=== PATIENT | male | born 1965 | race Caucasian/White ===

== ENCOUNTER 2017-07-07 15:44 | Inpatient (IN) | payer OTHER ==
[2017-07-07] VITALS (15 sets, daily range): BP systolic 100–143; BP diastolic 60–98; PULSE 68–142; RESP 16–22; TEMP 98; O2SAT 95–97
[~2017-07-07] VITALS: Ht 167.6 cm; Wt 107.2 kg
[~2017-07-07 15:44] MED LIST: PERC5TAB12 PO
[2017-07-07 17:11] LABS: AUTOMATED NEUTROPHIL # 4.9 TH/MM3 (1.8-7.7); BASOPHIL # 0.1 TH/MM3 (0-0.2); BASOPHIL % 0.9 % (0.0-2.0); EOSINOPHIL # 0.1 TH/MM3 (0-0.4); EOSINOPHIL % 1.7 % (0.0-4.0); HEMOGLOBIN 13.8 GM/DL (13.0-17.0); LYMPH % 14.8 % (9.0-44.0); MEAN CELL VOLUME 87.3 FL (80.0-100.0); MEAN CORPUSCULAR HEMOGLOBIN 30.2 PG (27.0-34.0); MEAN CORPUSCULAR HGB CONC 34.6 % (32.0-36.0); MEAN PLATELET VOLUME 7.7 FL (7.0-11.0); MONO % 7.9 % (0.0-8.0); MONOCYTE # 0.5 TH/MM3 (0-0.9); NEUT % 74.7 % (16.0-70.0); PLATELET COUNT 133 TH/MM3 (150-450); RED BLOOD COUNT 4.58 MIL/MM3 (4.50-5.90); RED CELL DISTRIBUTION WIDTH 15.3 % (11.6-17.2); WHITE BLOOD COUNT 6.5 TH/MM3 (4.0-11.0)
[2017-07-07 17:20] LABS: INTERNATIONAL NORMALIZED RATIO 1.1 RATIO; PROTHROMBIN TIME - PATIENT 11.4 SEC (9.8-11.6)
[2017-07-07 17:32] LABS: BICARBONATE 25.2 MEQ/L (21.0-32.0); BLOOD UREA NITROGEN 13 MG/DL (7-18); CALCIUM 9.4 MG/DL (8.5-10.1); CHLORIDE 103 MEQ/L (98-107); CREATININE 0.89 MG/DL (0.60-1.30); GLOMERULAR FILTRATION RATE 89 ML/MIN (>89); GLUCOSE,RANDOM 97 MG/DL (74-106); SODIUM (NA) 137 MEQ/L (136-145)
[2017-07-07 17:37] LABS: TROPONIN I LESS THAN 0.02 NG/ML (0.02-0.05)
[2017-07-07] MEDS ORDERED: SODIUM CHLORID 0.9% 500 ML INJ 500 ML IV ONE (19:45)
[2017-07-07] MEDS ORDERED: SODIUM CHLORIDE 0.9% FLUSH 10 ML FLUSH IVF PRN (19:45)
[2017-07-07] MEDS ORDERED: DILTIAZEM HCL 25 MG/5 ML VIAL IV PUSH ONE ×2 (19:45→20:30)
--- NOTE | 2017-07-07 20:25 | RADRPT ---
EXAM DATE/TIME: 07/07/2017 19:53 [facility] COMPARISON: No previous studies available for comparison. INDICATIONS : Short of breath. MEDICAL HISTORY : None. SURGICAL HISTORY : None. ENCOUNTER: Initial ACUITY: 1 day PAIN SCORE: 7/10 LOCATION: Bilateral chest FINDINGS: A single view of the chest demonstrates the lungs to be symmetrically aerated without evidence of mas s, infiltrate or effusion. The cardiomediastinal contours are unremarkable. Osseous structures are intact. CONCLUSION: No evidence of acute cardiopulmonary disease. Oscar Burris MD on July 07, 2017 at 20:22 Board Certified Radiologist. This report was verified electronically.
[2017-07-07] MEDS ORDERED: DILTIAZEM INJ 125 MG in SODIUM CHLORIDE 0.9% INJ 100 ML IV PRN (20:30)
[2017-07-07] MEDS ORDERED: IOHEXOL 350 MG/ML 10 ML VIAL (for RAD DIAG) IVCONTRAST ONE (20:35)
--- NOTE | 2017-07-07 20:51 | RADRPT ---
EXAM DATE/TIME: 07/07/2017 20:31 [facility] COMPARISON: No previous studies available for comparison. INDICATIONS : Patient complains of short of breath. IV CONTRAST: 75 cc Omnipaque 350 (iohexol) IV RADIATION DOSE: 23.45 CTDIvol (mGy) MEDICAL HISTORY : Carcinoma, bladder. SURGICAL HISTORY : bladder tumor removed ENCOUNTER: Initial ACUITY: 1 day PAIN SCALE: 2/10 LOCATION: chest TECHNIQUE: Volumetric scanning of the chest was performed using a pulmonary embolism protocol MIP images were re constructed. Using automated exposure control and adjustment of the mA and/or kV according to patien t size, radiation dose was kept as low as reasonably achievable to obtain optimal diagnostic quality images. DICOM format image data is available electronically for review and comparison. Follow-up recommendations for detected pulmonary nodules are based at a minimum on nodule size and pa tient risk factors according to Fleischner Society Guidelines. FINDINGS: PULMONARY ARTERIES: No filling defects are seen in the pulmonary arteries through the segmental level. LUNGS: There is no consolidation or pneumothorax . No concerning pulmonary nodule is visualized. Mild emphy sema noted. PLEURAE: There is no pleural thickening or pleural effusion. MEDIASTINUM: There is good visualization of the great vessels of the middle mediastinum. No evidence of mediastin al or hilar adenopathy/mass. Right and left side coronary artery calcification noted. MUSCULOSKELETAL: Within normal limits for patient age. MISCELLANEOUS: The visualized upper abdominal organs demonstrate no acute abnormality. 3.7 cm cyst of the upper pole of the right kidney and 2.4 cm cyst of the upper pole of the left kidney noted and there is a 12 mm benign myelolipoma of the lateral limb of the left adrenal gland. CONCLUSION: 1. No pulmonary embolus or other acute cardiopulmonary disease demonstrated. 2. Mild emphysema. 3. Coronary artery calcification. 4. Benign appearing cysts of the upper pole of each kidney. 5. 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 Oscar Burris MD on July 07, 2017 at 20:46 Board Certified Radiologist. This report was verified electronically.
[2017-07-07] MEDS ORDERED: DILTIAZEM HCL 50 MG/10 ML VIAL ONE (20:52)
--- NOTE | 2017-07-07 22:36 | PD ---
HPI Chief Complaint: Cardiac Complaint Time Seen by Provider: 19:33 Travel History International Travel<30 days: No Contact w/Intl Traveler<30days: No Traveled to known affect area: No History of Present Illness HPI Patient is a 51 year old male who comes in due to tachycardia. He says that he has been having congestion for about a month. He says he thinks the heart issue is related to his congestion. He went to the [place] today and was told to come here due to his heart rate and to make sure he did not have a blood clot. He denies any chest pain. He does report come shortness of breath. He denies nausea or vomiting. He denies leg swelling or pain. He has never had this before. Severity is mild to moderate. PFSH Past Medical History Cancer: Yes Chemotherapy: Yes (after malignant bladder tumor was removed (11/06/2015)) Diminished Hearing: No Immunizations Current: Yes Radiation Therapy: Yes (after malignant bladder tumor was removed (11/06/2015)) Influenza Vaccination: Yes Past Surgical History Genitourinary Surgery: Yes (malignant bladder tumor removed 11/06/2015) Tonsillectomy: Yes (50+ years ago (as child)) Social History Alcohol Use: No (quit drinking 2007) Tobacco Use: Yes (quit in 2016 but had a 30 year pack hx) Substance Use: No (denies) Allergies-Medications (Allergen,Severity, Reaction): Coded Allergies: No Known Allergies (Verified Allergy, Unknown, 07/08/17) Reported Meds & Prescriptions Reported Meds & Active Scripts Active Review of Systems Except as stated in HPI: all other systems reviewed are Neg General / Constitutional: No: Fever, Chills HENT: Positive: Congestion, No: Headaches Cardiovascular: Positive: Palpitations, No: Chest Pain or Discomfort Respiratory: Positive: Cough, Shortness of Breath Gastrointestinal: No: Nausea, Vomiting, Abdominal Pain Musculoskeletal: No: Myalgias, Edema Skin: No Rash, No Change in Pigmentation Neurologic: No: Weakness, Dizziness Physical Exam Narrative GENERAL: Awake and alert, in no acute distress. SKIN: Focused skin assessment warm/dry. HEAD: Atraumatic. Normocephalic. EYES: Pupils equal and round. No scleral icterus. EOMI. ENT: Mucous membranes pink and moist. NECK: Trachea midline. No JVD. CARDIOVASCULAR: tachycardia. No murmur appreciated. RESPIRATORY: No accessory muscle use. Clear to auscultation. Breath sounds equal bilaterally. GASTROINTESTINAL: Abdomen soft, non-tender, nondistended. MUSCULOSKELETAL: No obvious deformities. No clubbing. No cyanosis. No edema. NEUROLOGICAL: Awake and alert. No obvious cranial nerve deficits. Motor grossly within normal limits. Normal speech. PSYCHIATRIC: Appropriate mood and affect; insight and judgment normal. Data Data Last Documented VS Vital Signs Date Time Temp Pulse Resp B/P (MAP) Pulse Ox O2 Delivery O2 Flow Rate FiO2 07/07/17 22:30 72 20 135/67 (89) 96 Room Air 07/07/17 16:17 98.0 Orders Orders Electrocardiogram (07/07/17 16:17) Complete Blood Count With Diff (07/07/17 16:17) Basic Metabolic Panel (Bmp) (07/07/17 16:17) Ckmb (Isoenzyme) Profile (07/07/17 16:17) Troponin I (07/07/17 16:17) Coag Profile (07/07/17 16:19) CKMB (07/07/17 17:00) CKMB% (07/07/17 17:00) B-Type Natriuretic Peptide (07/07/17 19:33) Iv Access Insert/Monitor (07/07/17 19:33) Ecg Monitoring (07/07/17 19:33) Oximetry (07/07/17 19:33) Oxygen Administration (07/07/17 19:33) Chest, Single Ap (07/07/17 19:33) Ct Pulmonary Angiogram (07/07/17 19:33) Sodium Chloride 0.9% Flush (Ns Flush) (07/07/17 19:45) Diltiazem Inj (Cardizem Inj) (07/07/17 19:45) Sodium Chlorid 0.9% 500 Ml Inj (Ns 500 M (07/07/17 19:45) Diltiazem Inj (Cardizem Inj) (07/07/17 20:30) Vital Signs (Adult) Q15MX4,Q4H (07/07/17 20:23) Charrer / Telemetry SHAMIR.Q8H (07/07/17 20:23) Cardiac Rhythm SHAMIR.Q8H (07/07/17 20:23) Notify Dr: Other (07/07/17 20:23) Diltiazem Inj (Cardizem Inj) (07/07/17 20:30) Iohexol 350 Inj (Omnipaque 350 Inj) (07/07/17 20:35) Diltiazem Inj (Cardizem Inj) (07/07/17 20:52) Admit Order (Ed Use Only) (07/07/17 ) Labs Laboratory Tests Test 07/07/17 17:00 07/07/17 19:48 White Blood Count 6.5 TH/MM3 Red Blood Count 4.58 MIL/MM3 Hemoglobin 13.8 GM/DL Hematocrit 40.0 % Mean Corpuscular Volume 87.3 FL Mean Corpuscular Hemoglobin 30.2 PG Mean Corpuscular Hemoglobin Concent 34.6 % Red Cell Distribution Width 15.3 % Platelet Count 133 TH/MM3 Mean Platelet Volume 7.7 FL Neutrophils (%) (Auto) 74.7 % Lymphocytes (%) (Auto) 14.8 % Monocytes (%) (Auto) 7.9 % Eosinophils (%) (Auto) 1.7 % Basophils (%) (Auto) 0.9 % Neutrophils # (Auto) 4.9 TH/MM3 Lymphocytes # (Auto) 1.0 TH/MM3 Monocytes # (Auto) 0.5 TH/MM3 Eosinophils # (Auto) 0.1 TH/MM3 Basophils # (Auto) 0.1 TH/MM3 CBC Comment DIFF FINAL Differential Comment Prothrombin Time 11.4 SEC Prothromb Time International Ratio 1.1 RATIO Activated Partial Thromboplast Time 26.4 SEC Blood Urea Nitrogen 13 MG/DL Creatinine 0.89 MG/DL Random Glucose 97 MG/DL Calcium Level 9.4 MG/DL Sodium Level 137 MEQ/L Potassium Level 4.1 MEQ/L Chloride Level 103 MEQ/L Carbon Dioxide Level 25.2 MEQ/L Anion Gap 9 MEQ/L Estimat Glomerular Filtration Rate 89 ML/MIN Total Creatine Kinase 134 U/L Creatine Kinase MB 2.1 NG/ML Troponin I LESS THAN 0.02 NG/ML B-Type Natriuretic Peptide 228 PG/ML MDM Medical Decision Making Medical Screen Exam Complete: Yes Emergency Medical Condition: Yes Medical Record Reviewed: Yes Interpretation(s) ECG shows aflutter at a rate of 117 Differential Diagnosis new onset aflutter vs electrolyte abnormalities vs ACS vs PE Narrative Course Patient is a 51 year old male who comes in complaining of tachycardia. Exam shows tachycardia, aflutter. IV established, labs sent. Patient connected to the cardiac monitor technician. Pulse as high as 140. Given Cardizem, 2 boluses and started on a drip. CTA shows no acute abnormalities. Labs show no acute abnormalities. Patient will be admitted for further management. Diagnosis Primary Impression: Atrial flutter with rapid ventricular response Admitting Information Admitting Physician Requests: Admit Heaven Xiong MD Jul 07, 2017 22:36
[2017-07-07] MEDS ORDERED: ONDANSETRON HCL 4 MG/2 ML VIAL IVP PRN (23:15)
[2017-07-07] MEDS ORDERED: ENOXAPARIN SODIUM 100 MG/ML SYRINGE SQ SCH (23:15)
[2017-07-07] MEDS ORDERED: ACETAMINOPHEN 325 MG TAB PO PRN (23:15)
[2017-07-07] MEDS ORDERED: NALOXONE HCL 0.4 MG/ML AMP IV PUSH PRN (23:15)
[2017-07-08] VITALS (32 sets, daily range): BP systolic 98–156; BP diastolic 61–96; PULSE 46–138; RESP 16–22; TEMP 98–98.9; O2SAT 91–98
[2017-07-08] MEDS: ENOXAPARIN SODIUM 40 MG/0.4 ML SYRINGE SQ SCH ×2 (00:04→23:26)
[2017-07-08] MEDS ORDERED: SIMV40TA PO (00:23)
--- NOTE | 2017-07-08 01:40 | HHI.HP ---
HPI [facility] Primary Care Physician [facility] Admission Diagnosis aflutter with RVR, new onset Diagnoses: Travel History International Travel<30 Days: No Contact w/Intl Traveler <30 Da: No Traveled to Known Affected Are: No History of Present Illness 51-year-old male with a past medical history significant for hyperlipidemia presents to the emergency department for evaluation of atrial fibrillation. The patient has had chest congestion for the past month and was seen by the [facility] earlier yesterday. He complains of shortness of breath with a productive cough. His shortness of breath is worse with exertion. He endorses palpitations. Denies any chest pain. No lower extremity edema. No fever/ chills. No nausea/vomiting/diarrhea. No lateralizing signs/symptoms. Review of Systems Except as stated in HPI: all other systems reviewed are Neg Past Family Social History Past Medical History Hyperlipidemia Past Surgical History Bladder tumor removal Tonsillectomy Reported Medications Reported Meds & Active Scripts Active Reported Simvastatin 40 Mg Tab 20 Mg PO HS Allergies: Coded Allergies: No Known Allergies (Verified Allergy, Unknown, 07/08/17) Family History Father at age 59 due to complications from alcohol abuse. Social History Negative for alcohol, tobacco and illicit drugs. Physical Exam Vital Signs Vital Signs Date Time Temp Pulse Resp B/P (MAP) Pulse Ox O2 Delivery O2 Flow Rate FiO2 07/08/17 00:10 78 20 Automatic Cuff 96 Room Air 07/08/17 00:05 91 18 108/71 (83) 97 Room Air 07/07/17 23:30 70 20 100/62 (75) 97 Room Air 07/07/17 23:00 68 19 100/65 (77) 97 Room Air 07/07/17 22:30 72 20 135/67 (89) 96 Room Air 07/07/17 22:15 68 20 139/71 (93) 96 Room Air 07/07/17 22:00 68 20 143/72 (95) 96 Room Air 07/07/17 21:47 70 140/65 07/07/17 21:45 70 20 140/65 (90) 97 Room Air 07/07/17 21:03 92 16 143/72 (95) 95 Room Air 07/07/17 20:25 92 20 143/73 (96) 96 Room Air 07/07/17 20:20 98 20 135/68 (90) 96 Room Air 07/07/17 20:15 98 18 132/71 (91) 96 Room Air 07/07/17 20:10 124 21 132/60 (84) 96 Room Air 07/07/17 20:10 124 22 132/60 (84) 97 Room Air 07/07/17 20:09 97 Room Air 07/07/17 20:09 92 18 99 Room Air 07/07/17 20:05 138 22 135/98 (110) 97 Room Air 07/07/17 20:00 140 22 132/86 (101) 95 Room Air 07/07/17 19:55 142 22 128/79 (95) 95 Room Air 07/07/17 16:17 98.0 90 18 116/72 (87) 95 Physical Exam GENERAL: male lying in bed SKIN: No rashes, ecchymoses or lesions. Cool and dry. HEAD: Atraumatic. Normocephalic. No temporal or scalp tenderness. EYES: Pupils equal round and reactive. Extraocular motions intact. No scleral icterus. No injection or drainage. ENT: Nose without bleeding, purulent drainage or septal hematoma. Throat without erythema, tonsillar hypertrophy or exudate. Uvula midline. Airway patent. NECK: Trachea midline. No JVD or lymphadenopathy. Supple, nontender, no meningeal signs. CARDIOVASCULAR: Regular rate. Irregularly irregular rhythm without murmurs/rubs /gallops. RESPIRATORY: Clear to auscultation. Breath sounds equal bilaterally. No wheezes , rales, or rhonchi. GASTROINTESTINAL: Abdomen soft, non-tender, nondistended. No hepato-splenomegaly , or palpable masses. No guarding. MUSCULOSKELETAL: Extremities without clubbing, cyanosis, or edema. No joint tenderness, effusion, or edema noted. No calf tenderness. NEUROLOGICAL: Awake and alert. Cranial nerves II through XII intact. Motor and sensory grossly within normal limits. Normal speech. Laboratory Laboratory Tests Test 07/07/17 17:00 07/07/17 19:48 White Blood Count 6.5 Red Blood Count 4.58 Hemoglobin 13.8 Hematocrit 40.0 Mean Corpuscular Volume 87.3 Mean Corpuscular Hemoglobin 30.2 Mean Corpuscular Hemoglobin Concent 34.6 Red Cell Distribution Width 15.3 Platelet Count 133 Mean Platelet Volume 7.7 Neutrophils (%) (Auto) 74.7 Lymphocytes (%) (Auto) 14.8 Monocytes (%) (Auto) 7.9 Eosinophils (%) (Auto) 1.7 Basophils (%) (Auto) 0.9 Neutrophils # (Auto) 4.9 Lymphocytes # (Auto) 1.0 Monocytes # (Auto) 0.5 Eosinophils # (Auto) 0.1 Basophils # (Auto) 0.1 CBC Comment DIFF FINAL Differential Comment Prothrombin Time 11.4 Prothromb Time International Ratio 1.1 Activated Partial Thromboplast Time 26.4 Blood Urea Nitrogen 13 Creatinine 0.89 Random Glucose 97 Calcium Level 9.4 Sodium Level 137 Potassium Level 4.1 Chloride Level 103 Carbon Dioxide Level 25.2 Anion Gap 9 Estimat Glomerular Filtration Rate 89 Total Creatine Kinase 134 Creatine Kinase MB 2.1 Troponin I LESS THAN 0.02 B-Type Natriuretic Peptide 228 Result Diagram: 07/07/17 1700 07/07/17 1700 Caprini VTE Risk Assessment Caprini VTE Risk Assessment: No/Low Risk (score <= 1) Caprini Risk Assessment Model Point Value = 1 Point Value = 2 Point Value = 3 Point Value = 5 Age 41-60 Minor surgery BMI > 25 kg/m2 Swollen legs Varicose veins or History of unexplained or recurrent spontaneous Oral contraceptives or hormone replacement Sepsis (< 1 month) Serious lung disease, including pneumonia (< 1 month) Abnormal pulmonary function Acute myocardial infarction Congestive heart failure (< 1 month) History of inflammatory bowel disease Medical patient at bed rest Age 61-74 Arthroscopic surgery Major open surgery (> 45 min) Laparoscopic surgery (> 45 min) Malignancy Confined to bed (> 72 hours) Immobilizing plaster cast Central venous access Age >= 75 History of VTE Family history of VTE Factor V Leiden Prothrombin [id number] Lupus anticoagulant Anticardiolipin antibodies Elevated serum homocysteine Heparin-induced thrombocytopenia Other congenital or acquired thrombophilia Stroke (< 1 month) Elective arthroplasty Hip, pelvis, or leg fracture Acute spinal cord injury (< 1 month) Prophylaxis Regimen Total Risk Factor Score Risk Level Prophylaxis Regimen 0-1 Low Early ambulation 2 Moderate Order ONE of the following: *Sequential Compression Device (SCD) *Heparin 5000 units SQ BID 3-4 Higher Order ONE of the following medications: *Heparin 5000 units SQ TID *Enoxaparin/Lovenox 40 mg SQ daily (WT < 150 kg, CrCl > 30 mL/min) *Enoxaparin/Lovenox 30 mg SQ daily (WT < 150 kg, CrCl > 10-29 mL/min) *Enoxaparin/Lovenox 30 mg SQ BID (WT < 150 kg, CrCl > 30 mL/min) AND/OR *Sequential Compression Device (SCD) 5 or more Highest Order ONE of the following medications: *Heparin 5000 units SQ TID (Preferred with Epidurals) *Enoxaparin/Lovenox 40 mg SQ daily (WT < 150 kg, CrCl > 30 mL/min) *Enoxaparin/Lovenox 30 mg SQ daily (WT < 150 kg, CrCl > 10-29 mL/min) *Enoxaparin/Lovenox 30 mg SQ BID (WT < 150 kg, CrCl > 30 mL/min) AND *Sequential Compression Device (SCD) Assessment and Plan Assessment and Plan Assessment/plan: 1. Atrial flutter with rapid ventricular response EKG significant for a flutter with RVR and incomplete RBBB, personally reviewed. No ST segment elevation/depression Patient without history of atrial flutter or fibrillation CHADS-VASc - 0 Diltiazem drip Cardiology consulted, appreciate recommendations 2. Hyperlipidemia Continue home statin FEN Heart healthy diet Electrolytes: Replete when necessary Lovenox Physician Certification 2 Midnight Certification Type: Admission for Inpatient Services Order for Inpatient Services The services are ordered in accordance with Medicare regulations or non- Medicare payer requirements, as applicable. In the case of services not specified as inpatient-only, they are appropriately provided as inpatient services in accordance with the 2-midnight benchmark. Estimated LOS (days): 2 2 days is the estimated time the patient will need to remain in the hospital, assuming treatment plan goals are met and no additional complications. Post-Hospital Plan: Not yet determined Ann Kaufman MD Jul 08, 2017 01:40
[2017-07-08 10:47] LABS: AUTOMATED NEUTROPHIL # 4.7 TH/MM3 (1.8-7.7); BASOPHIL % 0.6 % (0.0-2.0); EOSINOPHIL # 0.1 TH/MM3 (0-0.4); EOSINOPHIL % 2.2 % (0.0-4.0); HEMATOCRIT 39.1 % (39.0-51.0); HEMOGLOBIN 13.3 GM/DL (13.0-17.0); LYMPHOCYTE # 0.6 TH/MM3 (1.0-4.8); MEAN CELL VOLUME 88.5 FL (80.0-100.0); MEAN CORPUSCULAR HGB CONC 33.9 % (32.0-36.0); MEAN PLATELET VOLUME 8.7 FL (7.0-11.0); MONO % 4.6 % (0.0-8.0); MONOCYTE # 0.3 TH/MM3 (0-0.9); NEUT % 81.6 % (16.0-70.0); PLATELET COUNT 128 TH/MM3 (150-450); RED BLOOD COUNT 4.42 MIL/MM3 (4.50-5.90); RED CELL DISTRIBUTION WIDTH 15.1 % (11.6-17.2); WHITE BLOOD COUNT 5.7 TH/MM3 (4.0-11.0)
[2017-07-08 11:22] LABS: CALCIUM 8.6 MG/DL (8.5-10.1); CREATININE 0.9 MG/DL (0.60-1.30)
--- NOTE | 2017-07-08 16:54 | HHI.PR ---
Subjective Remarks Follow-up atrial fibrillation. Patient seen and examined today laying in bed. He states that he is doing well. However complaint of shortness of breath, dyspnea on exertion especially when he gets out of bed going to the bathroom. Patient states that he is so winded. But states his oxygen remains in the 94-96 %. States he has some congestion and that all of this might be just from the congestion that is why he is not breathing better. Denies pain and discomfort. Denies chest pain, palpitations, headaches, dizziness. Denies fevers, chills, n/v/d. Denies hematuria, dysuria. Objective Vitals Vital Signs Date Time Temp Pulse Resp B/P (MAP) Pulse Ox O2 Delivery O2 Flow Rate FiO2 07/08/17 16:00 92 07/08/17 15:21 98.1 74 18 98/76 (83) 94 07/08/17 15:00 70 07/08/17 14:00 76 07/08/17 13:00 92 07/08/17 12:18 98.0 138 18 118/64 (82) 95 07/08/17 12:00 130 07/08/17 11:22 87 18 95 07/08/17 11:00 112 07/08/17 09:52 99 20 125/96 (106) 93 Room Air 07/08/17 09:30 134 07/08/17 08:00 76 22 118/63 (81) 93 Room Air 07/08/17 07:00 80 20 114/69 (84) 93 Room Air 07/08/17 06:00 68 16 118/71 (87) 91 Room Air 07/08/17 05:00 84 16 106/69 (81) 91 Room Air 07/08/17 04:00 68 16 109/61 (77) 92 Room Air 07/08/17 03:00 72 16 119/74 (89) 94 Room Air 07/08/17 03:00 74 119/74 07/08/17 02:09 78 106/78 07/08/17 02:04 98 07/08/17 02:04 78 16 106/79 (88) 98 Room Air 07/08/17 01:45 68 18 107/63 (78) 96 07/08/17 01:00 68 20 110/71 (84) 96 Room Air 07/08/17 00:45 84 20 97 Room Air 07/08/17 00:30 136 22 156/88 (110) 96 Room Air 07/08/17 00:10 78 20 Automatic Cuff 96 Room Air 07/08/17 00:05 91 18 108/71 (83) 97 Room Air 07/07/17 23:30 70 20 100/62 (75) 97 Room Air 07/07/17 23:00 68 19 100/65 (77) 97 Room Air 07/07/17 22:30 72 20 135/67 (89) 96 Room Air 07/07/17 22:15 68 20 139/71 (93) 96 Room Air 07/07/17 22:00 68 20 143/72 (95) 96 Room Air 07/07/17 21:47 70 140/65 07/07/17 21:45 70 20 140/65 (90) 97 Room Air 07/07/17 21:03 92 16 143/72 (95) 95 Room Air 07/07/17 20:25 92 20 143/73 (96) 96 Room Air 07/07/17 20:20 98 20 135/68 (90) 96 Room Air 07/07/17 20:15 98 18 132/71 (91) 96 Room Air 07/07/17 20:10 124 21 132/60 (84) 96 Room Air 07/07/17 20:10 124 22 132/60 (84) 97 Room Air 07/07/17 20:09 97 Room Air 07/07/17 20:09 92 18 99 Room Air 07/07/17 20:05 138 22 135/98 (110) 97 Room Air 07/07/17 20:00 140 22 132/86 (101) 95 Room Air 07/07/17 19:55 142 22 128/79 (95) 95 Room Air I/O 07/07/17 07/07/17 07/07/17 07/08/17 07/08/17 07/08/17 07:00 15:00 23:00 07:00 15:00 23:00 Intake Total 500 ml Balance 500 ml Intake IV Total 500 ml Result Diagram: 07/08/17 1013 07/08/17 1013 Imaging Last Impressions Chest X-Ray 07/07/17 193 Signed Impressions: Service Date/Time: Friday, July 07, 2017 19:53 - CONCLUSION: No evidence of acute cardiopulmonary disease. Oscar Burris MD CT Angiography 07/07/17 193 Signed Impressions: Service Date/Time: Friday, July 07, 2017 20:31 - CONCLUSION: 1. No pulmonary embolus or other acute cardiopulmonary disease demonstrated. 2. Mild emphysema. 3. Coronary artery calcification. 4. Benign appearing cysts of the upper pole of each kidney. 5. 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 Oscar Burris MD Objective Remarks GENERAL: This is an obese, well-developed patient, in no apparent distress. SKIN: Warm and dry. HEENT: Normocephalic. Pupils equal round and reactive. Nose without bleeding. Airway patent. NECK: Trachea midline. CARDIOVASCULAR:Irregular rate without murmurs, gallops, or rubs. RESPIRATORY: Diminished Bases. No wheezes, rales, or rhonchi. GASTROINTESTINAL: Abdomen soft, non-tender, nondistended. Bowel Sounds normoactive x4. MUSCULOSKELETAL: Extremities without clubbing, cyanosis, or edema. NEUROLOGICAL: Awake and alert. Oriented to time, place, person. No focal neuro deficit. Moves all extremities. Normal speech. A/P Problem List: (1) Atrial flutter with rapid ventricular response ICD Code: I48.92 - Unspecified atrial flutter Status: Acute (2) HLD (hyperlipidemia) ICD Code: E78.5 - Hyperlipidemia, unspecified Status: Chronic Assessment and Plan Patient is 51-year-old male with a past medical history significant for hyperlipidemia presents to the emergency department for evaluation of atrial fibrillation Atrial flutter with rapid ventricular response EKG significant for a flutter with RVR and incomplete RBBB, personally reviewed. No ST segment elevation/depression Patient without history of atrial flutter or fibrillation CHADS-VASc - 0 Diltiazem drip for now, titrate to HR <100. May possibly switch to PO Cardizem once evaluated by Cardiology Cardiology consulted, appreciate recommendations ECHO pending PT eval and treat Hyperlipidemia Continue home statin, simvastatin Check Lipid Profile Congestion -Reports congestion, previously when he was seen at the [place]. -We will do guaifenesin as needed DVT prop Lovenox Discharge Planning Plan to [place] home when cleared by cardiology. Angie Cosby Jul 08, 2017 16:54
--- NOTE | 2017-07-08 16:56 | EKG ---
Date Performed: 07/07/2017 Time Performed: 16:52:04 PTAGE: 51 years EKG: ATRIAL FLUTTER WITH RAPID VENTRICULAR RESPONSE RIGHT VENTRICULAR CONDUCTION DISTURBANCE DIF FUSE NONSPECIFIC ST-T WAVE CHANGE ABNORMAL ECG NO PREVIOUS TRACING DOCTOR: Dmitry Hawkins Interpretating Date/Time 07/08/2017 16:55:09
--- NOTE | 2017-07-08 16:58 | EKG ---
Date Performed: 07/07/2017 Time Performed: 23:17:12 PTAGE: 51 years EKG: ATRIAL FLUTTER WITH CONTROLLED VENTRICULAR RESPONSE RIGHT VENTRICULAR CONDUCTION DISTURBANC E INDETERMINATE AXIS NONSPECIFIC T-WAVE CHANGE Compared to previous tracing, ventricular response to the atrial flutter is slower, otherwise no significant change. ABNORMAL ECG PREVIOUS TRACING : 07/07/2017 23.17.12 DOCTOR: Dmitry Hawkins Interpretating Date/Time 07/08/2017 16:57:48
[2017-07-08 17:57] LABS: ALBUMIN 3.4 GM/DL (3.4-5.0)
[2017-07-08 18:01] LABS: CHOLESTEROL/ HDL RATIO 3.78 RATIO; DIRECT BILIRUBIN ADULT 0.2 MG/DL (0.0-0.2); HDL CHOLESTEROL 30.9 MG/DL (40.0-60.0); INDIRECT BILIRUBIN 0.9 MG/DL (0.0-0.8); TOTAL BILIRUBIN ADULT 1.1 MG/DL (0.2-1.0); TOTAL PROTEIN 6.9 GM/DL (6.4-8.2)
[2017-07-08] MEDS: DILTIAZEM HCL 30 MG TAB PO SCH ×2 (18:11→20:15)
[2017-07-08] MEDS: ASPIRIN EC 81 MG TABEC PO SCH (18:11)
--- NOTE | 2017-07-08 18:41 | MB ---
cc: Matt Stubbs MD DATE OF CONSULT: 07/08/2017 REASON FOR CONSULTATION: Atrial flutter. HISTORY OF PRESENT ILLNESS: The patient is a 51-year-old white male with a history of benign prostatic hypertrophy, bladder cancer, status post chemotherapy and radiation therapy, who presented to the hospital with a 1-month history of persistent upper airway congestion and shortness of breath. The patient states he is barely able to walk about 50-75 yards without a fair amount of dyspnea. He finally came to the emergency room where he was found to be in atrial flutter. He denies chest pain, dizziness, syncope, or near syncope. Rarely, he experiences fleeting fluttering palpitations. He also denies pedal edema, paroxysmal nocturnal dyspnea or orthopnea. He has not had any fevers, chills, or weight loss. PAST MEDICAL HISTORY: 1. Benign prostatic hypertrophy. 2. Bladder cancer, status post tumor resection 10/27/2015, as well as chemotherapy and radiation therapy. 3. Hyperlipidemia. PAST SURGICAL HISTORY: 1. Bladder cancer tumor removal 10/27/2015. 2. Tonsillectomy. CARDIAC MEDICATIONS AT HOME: 1. Simvastatin 20 mg at bedtime. ALLERGIES: NO KNOWN DRUG ALLERGIES. FAMILY HISTORY: There is no significant family history of early myocardial infarction. SOCIAL HISTORY: The patient quit smoking many years ago. He denies alcohol abuse. REVIEW OF SYSTEMS: As in history of present illness, otherwise negative or noncontributory. He also denies headache, visual changes, unilateral weakness or numbness, abdominal pain, melena, dyspepsia, and bright red blood per rectum. PHYSICAL EXAMINATION: VITAL SIGNS: Blood pressure 98/76 with a pulse of 80, respirations 18. GENERAL: He is a well-developed, well-nourished white male, in no acute distress. NECK: Jugular venous pressure is normal. Carotid pulses are 2+ bilaterally and without bruits. CHEST: Reveals clear lungs craven. CARDIAC: He has an irregularly irregular rhythm without S3 or murmur. ABDOMEN: He has a soft, obese, nontender abdomen. Bowel sounds are present. There is no definite hepatosplenomegaly. EXTREMITIES: Reveals no clubbing, cyanosis, or edema. DIAGNOSTIC DATA: EKG shows atrial flutter, poor R-wave progression, nonspecific ST and T-wave abnormalities. LABORATORY DATA: Includes normal basic metabolic profile, except for glucose 157. Normal CBC. IMAGING STUDIES: Chest x-ray shows no acute disease. IMPRESSION: Paroxysmal atrial flutter in this 51-year-old white male with a history of hyperlipidemia, bladder cancer, benign prostatic hypertrophy. At this time, he remains in atrial flutter with controlled heart rates, on intravenous Cardizem. Echocardiogram is pending. Providing his left ventricular function is normal, his thromboembolic risk is low. There is no evidence for acute coronary syndrome. There is no evidence for congestive heart failure. The nature of atrial flutter, potential treatment options in the future, thromboembolic risks have been outlined with the patient. RECOMMENDATIONS: 1. Change intravenous Cardizem to oral administration. 2. Daily aspirin. 3. Await his 2D echo. 4. Consider discharge tomorrow. MD NARINDER Dangelo/ZARA , 05:52 PM , 06:39 PM [email or web address]
[2017-07-08] MEDS: PRAVASTATIN SOD 40 MG TAB PO SCH (20:15)
[2017-07-08] MEDS: guaiFENesin SOLUTION 200 MG/10 ML CUP PO PRN (23:26)
[2017-07-09] VITALS (26 sets, daily range): BP systolic 113–121; BP diastolic 65–94; PULSE 48–130; RESP 18; TEMP 98.3–98.7; O2SAT 92–100
[2017-07-09] MEDS: ASPIRIN EC 81 MG TABEC PO SCH (08:47)
[2017-07-09] MEDS: DILTIAZEM HCL 30 MG TAB PO SCH (08:47)
[2017-07-09 09:43] LABS: HEMOGLOBIN A1C 5.9 % (4.3-6.0)
--- NOTE | 2017-07-09 09:48 | PD.CARD.PN ---
Subjective Subjective Remarks No dyspnea, CP, palpitations, dizziness. Still somewhat "congested." Objective Medications Item Value Date Time Pravastatin Sodium 40 mg 07/08/17 2100 (Pravachol) HS/PO 07/08/172014 Diltiazem HCl 30 mg 07/08/17 1800 (Cardizem) QID/PO 07/09/17 0847 Aspirin 81 mg 07/08/17 1800 (Ecotrin Ec) DAILY/PO 07/09/17 0847 Enoxaparin Sodium 40 mg 07/07/17 2315 (Lovenox Inj) Q24H/SQ 07/08/17 2326 Current Medications Medications (Trade) Dose Ordered Sig/Marlen Route Start Time Stop Time Status Last Admin (NS Flush) 2 ml UNSCH PRN IVF 07/07/17 19:45 07/07/17 21:47 (Tylenol) 650 mg Q4H PRN PO 07/07/17 23:15 (Zofran Inj) 4 mg Q6H PRN IVP 07/07/17 23:15 (Narcan Inj) 0.4 mg UNSCH PRN IV PUSH 07/07/17 23:15 (Lovenox Inj) 40 mg Q24H SQ 07/07/17 23:15 07/08/17 23:26 (Pravachol) 40 mg HS PO 07/08/17 21:00 07/08/17 20:15 (Robitussin Liq) 200 mg Q4H PRN PO 07/08/17 17:00 07/08/17 23:26 (Cardizem) 30 mg QID PO 07/08/17 18:00 07/09/17 08:47 (Ecotrin Ec) 81 mg DAILY PO 07/08/17 18:00 07/09/17 08:47 Vital Signs / I&O Vital Signs Date Time Temp Pulse Resp B/P (MAP) Pulse Ox O2 Delivery O2 Flow Rate FiO2 07/09/17 07:12 98.5 130 18 113/94 (100) 98 07/09/17 06:15 98 07/09/17 05:03 67 07/09/17 04:29 83 07/09/17 03:47 83 07/09/17 03:43 98.5 48 121/74 (90) 92 07/09/17 02:01 72 07/09/17 01:00 67 07/09/17 00:00 82 07/08/17 23:39 91 07/08/17 23:35 98.8 46 111/66 (81) 93 07/08/17 22:00 76 07/08/17 21:00 98 07/08/17 20:00 82 07/08/17 20:00 98.9 65 101/76 (84) 93 07/08/17 19:00 92 07/08/17 18:00 94 07/08/17 17:00 80 07/08/17 16:00 92 07/08/17 15:21 98.1 74 18 98/76 (83) 94 07/08/17 15:00 70 07/08/17 14:00 76 07/08/17 13:00 92 07/08/17 12:18 98.0 138 18 118/64 (82) 95 07/08/17 12:00 130 07/08/17 11:22 87 18 95 07/08/17 11:00 112 07/08/17 09:52 99 20 125/96 (106) 93 Room Air I/O 07/08/17 07/08/17 07/08/17 07/09/17 07/09/17 07/09/17 07:00 15:00 23:00 07:00 15:00 23:00 Intake Total 840 ml 240 ml Output Total 750 ml 400 ml Balance 90 ml -160 ml Intake Oral 840 ml 240 ml Output Urine Total 750 ml 400 ml Physical Exam GENERAL: Well developed, well nourished. No acute distress. HEENT: Jugular venous pressure is normal. CHEST: Lungs clear to auscultation bilaterally. Unlabored respiratory effort. CARDIAC: Irregular rate and rhythm without S3, S4, or murmur. ABDOMEN: Soft, nontender, no hepatosplenomegaly. Bowel sounds present. EXTREMITIES: No clubbing, cyanosis, or edema. Laboratory Laboratory Tests Test 07/08/17 10:13 White Blood Count 5.7 TH/MM3 Red Blood Count 4.42 MIL/MM3 Hemoglobin 13.3 GM/DL Hematocrit 39.1 % Mean Corpuscular Volume 88.5 FL Mean Corpuscular Hemoglobin 30.0 PG Mean Corpuscular Hemoglobin Concent 33.9 % Red Cell Distribution Width 15.1 % Platelet Count 128 TH/MM3 Mean Platelet Volume 8.7 FL Neutrophils (%) (Auto) 81.6 % Lymphocytes (%) (Auto) 11.0 % Monocytes (%) (Auto) 4.6 % Eosinophils (%) (Auto) 2.2 % Basophils (%) (Auto) 0.6 % Neutrophils # (Auto) 4.7 TH/MM3 Lymphocytes # (Auto) 0.6 TH/MM3 Monocytes # (Auto) 0.3 TH/MM3 Eosinophils # (Auto) 0.1 TH/MM3 Basophils # (Auto) 0.0 TH/MM3 CBC Comment DIFF FINAL Differential Comment Blood Urea Nitrogen 10 MG/DL Creatinine 0.90 MG/DL Random Glucose 157 MG/DL Calcium Level 8.6 MG/DL Sodium Level 138 MEQ/L Potassium Level 4.3 MEQ/L Chloride Level 104 MEQ/L Carbon Dioxide Level 25.0 MEQ/L Anion Gap 9 MEQ/L Estimat Glomerular Filtration Rate 88 ML/MIN Total Bilirubin 1.1 MG/DL Direct Bilirubin 0.2 MG/DL Indirect Bilirubin 0.9 MG/DL Aspartate Amino Transf (AST/SGOT) 35 U/L Alanine Aminotransferase (ALT/SGPT) 28 U/L Alkaline Phosphatase 72 U/L Total Protein 6.9 GM/DL Albumin 3.4 GM/DL Triglycerides Level 97 MG/DL Cholesterol Level 117 MG/DL LDL Cholesterol 67 MG/DL HDL Cholesterol 30.9 MG/DL Cholesterol/HDL Ratio 3.78 RATIO Assessment and Plan Problem List: (1) Paroxysmal atrial flutter ICD Codes: I48.92 - Unspecified atrial flutter Status: Acute Plan: Overall stable. HR's elevated with mild exertion, normal at rest. Providing his left ventricular function is normal, his thromboembolic risk is low. There is no evidence for acute coronary syndrome. There is no evidence for congestive heart failure. REC change diltiazem to Cardizem CD 240 mg qd continue daily aspirin will consider referral for EP study in the future for ablation OK to discharge later today from my standpoint (2) Hyperlipidemia ICD Codes: E78.5 - Hyperlipidemia, unspecified Status: Chronic Plan: Continue statin therapy. [facility] Rec primary prevention goals. Code Status full code Discussed Condition With patient Problem Qualifiers (1) Hyperlipidemia: Qualified Codes: E78.5 - Hyperlipidemia, unspecified Matt Stubbs MD Jul 09, 2017 09:48
[2017-07-09] MEDS ORDERED: DILTIAZEM-CD 240 MG CAP ER PO SCH (10:00)
--- NOTE | 2017-07-09 11:18 | HHI.PR ---
Subjective Remarks Follow-up atrial fibrillation with RVR 07/09/17-patient seen and examined, denies any chest pain however complain of congestions. Objective Vitals Vital Signs Date Time Temp Pulse Resp B/P (MAP) Pulse Ox O2 Delivery O2 Flow Rate FiO2 07/09/17 07:12 98.5 130 18 113/94 (100) 98 07/09/17 06:15 98 07/09/17 05:03 67 07/09/17 04:29 83 07/09/17 03:47 83 07/09/17 03:43 98.5 48 121/74 (90) 92 07/09/17 02:01 72 07/09/17 01:00 67 07/09/17 00:00 82 07/08/17 23:39 91 07/08/17 23:35 98.8 46 111/66 (81) 93 07/08/17 22:00 76 07/08/17 21:00 98 07/08/17 20:00 82 07/08/17 20:00 98.9 65 101/76 (84) 93 07/08/17 19:00 92 07/08/17 18:00 94 07/08/17 17:00 80 07/08/17 16:00 92 07/08/17 15:21 98.1 74 18 98/76 (83) 94 07/08/17 15:00 70 07/08/17 14:00 76 07/08/17 13:00 92 07/08/17 12:18 98.0 138 18 118/64 (82) 95 07/08/17 12:00 130 07/08/17 11:22 87 18 95 I/O 07/08/17 07/08/17 07/08/17 07/09/17 07/09/17 07/09/17 07:00 15:00 23:00 07:00 15:00 23:00 Intake Total 840 ml 240 ml Output Total 750 ml 400 ml Balance 90 ml -160 ml Intake Oral 840 ml 240 ml Output Urine Total 750 ml 400 ml Result Diagram: 07/08/17 1013 07/08/17 1013 Imaging Last Impressions Chest X-Ray 07/07/17 193 Signed Impressions: Service Date/Time: Friday, July 07, 2017 19:53 - CONCLUSION: No evidence of acute cardiopulmonary disease. Oscar Burris MD CT Angiography 07/07/17 193 Signed Impressions: Service Date/Time: Friday, July 07, 2017 20:31 - CONCLUSION: 1. No pulmonary embolus or other acute cardiopulmonary disease demonstrated. 2. Mild emphysema. 3. Coronary artery calcification. 4. Benign appearing cysts of the upper pole of each kidney. 5. 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 Oscar Burris MD Objective Remarks GENERAL: NAD SKIN: Warm and dry. HEAD: Normocephalic. EYES: No scleral icterus. No injection or drainage. NECK: Supple, trachea midline. No JVD or lymphadenopathy. CARDIOVASCULAR: Regular rate and rhythm without murmurs, gallops, or rubs. RESPIRATORY: Breath sounds equal bilaterally. No accessory muscle use. GASTROINTESTINAL: Abdomen soft, non-tender, nondistended. MUSCULOSKELETAL: No cyanosis, or edema. BACK: Nontender without obvious deformity. No CVA tenderness. Procedures None A/P Problem List: (1) Paroxysmal atrial flutter ICD Code: I48.92 - Unspecified atrial flutter Status: Acute (2) HLD (hyperlipidemia) ICD Code: E78.5 - Hyperlipidemia, unspecified Status: Chronic Assessment and Plan 51-year-old man with Atrial fibrillation with RVR Change to Cardizem CD 240 mg daily Continue with aspirin pending 2-D echo Appreciate input from cardiology Hyperlipidemia Continue home statin, simvastatin Congestion -Reports congestion, [facility]. -Continue guaifenesin as needed DVT prop Moose Mckinnon MD Jul 09, 2017 11:18
--- NOTE | 2017-07-09 16:40 | ECHRPT ---
Indication: A FIB FLUTTER CONCLUSIONS Mildly dilated left ventricle. Wall thickness is measured at the upper limits of normal. The left ventricular systolic function is severely reduced with an estimated ejection fraction of 25 %. The right ventricular systolic function is decreased. BP: / HR: Rhythm: MEASUREMENTS (Male / Female) Normal Values Technical Quality: 2D ECHO LV Diastolic Diameter PLAX 5.5 cm 4.2 - 5.9 / 3.9 - 5.3 cm LV Systolic Diameter PLAX 4.9 cm IVS Diastolic Thickness 1.4 cm 0.6 - 1.0 / 0.6 - 0.9 cm LVPW Diastolic Thickness 1.0 cm 0.6 - 1.0 / 0.6 - 0.9 cm LV Relative Wall Thickness 0.4 LA Systolic Diameter LX 3.8 cm 3.0 - 4.0 / 2.7 - 3.8 cm M-MODE Aortic Root Diameter MM 3.3 cm AV Cusp Separation MM 2.3 cm DOPPLER Mitral E Point Velocity 117.0 cm/s TR Peak Velocity 266.0 cm/s TR Peak Gradient 28.3 mmHg Right Atrial Pressure 5.0 mmHg Pulmonary Artery Systolic Pressu 33.3 mmHg Right Ventricular Systolic Press 33.3 mmHg FINDINGS LEFT VENTRICLE Mildly dilated left ventricle. Wall thickness is measured at the upper limits of normal. The left ventricular systolic function is severely reduced with an estimated ejection fraction of 25 %. RIGHT VENTRICLE The right ventricular systoilc function is decreased. LEFT ATRIUM The left atrial size is normal. RIGHT ATRIUM The right atrial size is normal. ATRIAL SEPTUM Normal atrial septal thickness without atrial level shunting by limited color doppler interrogation. AORTA The aortic root and proximal ascending aorta are normal in size on limited imaging. MITRAL VALVE Structurally normal mitral valve. No mitral valve stenosis or regurgitation. AORTIC VALVE Trileaflet aortic valve. No aortic valve stenosis or regurgitation. TRICUSPID VALVE Structurally normal tricuspid valve. No tricuspid valve stenosis or regurgitation. PULMONARY VALVE No pulmonary valve regurgitation or stenosis. VESSELS The inferior vena cava is normal in size. PERICARDIUM No pericardial effusion. Mima See MD, FACC (Electronically Signed) Final Date:09 July 2017 16:39
[2017-07-09] MEDS: PRAVASTATIN SOD 40 MG TAB PO SCH (20:18)
[2017-07-09] MEDS: guaiFENesin SOLUTION 200 MG/10 ML CUP PO PRN (23:24)
[2017-07-09] MEDS: ENOXAPARIN SODIUM 40 MG/0.4 ML SYRINGE SQ SCH (23:24)
[2017-07-10] VITALS (28 sets, daily range): BP systolic 101–119; BP diastolic 65–79; PULSE 55–136; RESP 18; TEMP 97.7–98.7; O2SAT 92–98
--- NOTE | 2017-07-10 07:32 | PD.CARD.PN ---
Subjective Subjective Remarks No dyspnea, CP, palpitations, dizziness. Objective Medications Item Value Date Time Aspirin 162 mg 07/10/17 0900 (Ecotrin Ec) DAILY/PO Diltiazem HCl 240 mg 07/09/17 1000 (Cardizem Cd) DAILY/PO 07/09/17 1056 Pravastatin Sodium 40 mg 07/08/17 2100 (Pravachol) HS/PO 07/09/172017 Enoxaparin Sodium 40 mg 07/07/17 2315 (Lovenox Inj) Q24H/SQ 07/09/17 2324 Current Medications Medications (Trade) Dose Ordered Sig/Marlen Route Start Time Stop Time Status Last Admin (NS Flush) 2 ml UNSCH PRN IVF 07/07/17 19:45 07/07/17 21:47 (Tylenol) 650 mg Q4H PRN PO 07/07/17 23:15 (Zofran Inj) 4 mg Q6H PRN IVP 07/07/17 23:15 (Narcan Inj) 0.4 mg UNSCH PRN IV PUSH 07/07/17 23:15 (Lovenox Inj) 40 mg Q24H SQ 07/07/17 23:15 07/09/17 23:24 (Pravachol) 40 mg HS PO 07/08/17 21:00 07/09/17 20:18 (Robitussin Liq) 200 mg Q4H PRN PO 07/08/17 17:00 07/09/17 23:24 (Cardizem Cd) 240 mg DAILY PO 07/09/17 10:00 07/09/17 10:56 (Ecotrin Ec) 162 mg DAILY PO 07/10/17 09:00 Vital Signs / I&O Vital Signs Date Time Temp Pulse Resp B/P (MAP) Pulse Ox O2 Delivery O2 Flow Rate FiO2 07/10/17 06:11 88 07/10/17 05:02 65 07/10/17 04:00 68 07/10/17 03:54 68 07/10/17 03:50 98.6 68 101/71 (81) 93 07/10/17 02:00 66 07/10/17 01:00 66 07/10/17 00:57 98.3 64 119/65 (83) 95 07/10/17 00:00 72 07/09/17 23:00 79 3/18/18 22:00 86 1818 21:00 86 18 20:00 78 18 20:00 98.3 64 119/65 (83) 95 18 19:00 92 18 18:00 101 18 17:00 93 18 16:00 102 07/09/17 15:00 98.5 98 18 119/82 (94) 100 07/09/17 15:00 80 07/09/17 14:00 92 07/09/17 13:00 109 07/09/17 12:00 100 07/09/17 11:00 98.7 93 18 117/70 (86) 98 07/09/17 11:00 91 07/09/17 10:00 111 07/09/17 09:00 101 07/09/17 08:00 98 I/O 18 18/18 18/18 18 18 07/10/17 07:00 15:00 23:00 07:00 15:00 23:00 Intake Total 240 ml 840 ml 240 ml Output Total 400 ml 750 ml 300 ml Balance -160 ml 90 ml -60 ml Intake Oral 240 ml 840 ml 240 ml Output Urine Total 400 ml 750 ml 300 ml # Bowel Movements 1 Physical Exam GENERAL: Well developed, well nourished. No acute distress. HEENT: Jugular venous pressure is normal. CHEST: Lungs clear to auscultation bilaterally. Unlabored respiratory effort. CARDIAC: Irregular rate and rhythm without S3, S4, or murmur. ABDOMEN: Soft, nontender, no hepatosplenomegaly. Bowel sounds present. EXTREMITIES: No clubbing, cyanosis, or edema. Assessment and Plan Problem List: (1) Paroxysmal atrial flutter ICD Codes: I48.92 - Unspecified atrial flutter Status: Acute Plan: Overall stable. HR's acceptable. EF reportedly 25% by echo. Now patient's thromboembolic risk moderately elevated. REC change Cardizem CD to metoprolol 50 mg bid, add ANUPAMA-I change aspirin to apixaban will consider referral for EP study in the future for ablation OK to discharge later today from my standpoint if remains clinically stable (2) Hyperlipidemia ICD Codes: E78.5 - Hyperlipidemia, unspecified Status: Chronic Plan: Continue statin therapy. [facility] Rec primary prevention goals. (3) Cardiomyopathy ICD Codes: I42.9 - Cardiomyopathy, unspecified Status: Acute Plan: EF reportedly 25% by echo. No definite acute CHF. Hypokinesis appears global. Rec change diltiazem to metoprolol, add ANUPAMA-I, repeat echo in 3 months. Cardiomyopathy possibly tachycardia-mediated. Code Status full code Discussed Condition With patient Problem Qualifiers (1) Hyperlipidemia: Qualified Codes: E78.5 - Hyperlipidemia, unspecified (2) Cardiomyopathy: Qualified Codes: I42.9 - Cardiomyopathy, unspecified Matt Stubbs MD Jul 10, 2017 07:32
[2017-07-10] MEDS ORDERED: ASPIRIN EC 81 MG TABEC PO SCH (09:00)
[2017-07-10] MEDS ORDERED: APIXABAN 5 MG TABLET PO SCH (09:00)
[2017-07-10] MEDS: ENALAPRIL MALEATE 2.5 MG TAB PO SCH (09:27)
[2017-07-10] MEDS: METOPROLOL TARTRATE 50 MG TAB PO SCH ×2 (09:27→21:00)
--- NOTE | 2017-07-10 10:40 | HHI.PR ---
Subjective Remarks Follow-up atrial fibrillation with RVR 07/09/17-patient seen and examined, denies any chest pain however complain of congestions. 07/10/17-patient seen and examined, stable and no complaint. Looking for discharge home Objective Vitals Vital Signs Date Time Temp Pulse Resp B/P (MAP) Pulse Ox O2 Delivery O2 Flow Rate FiO2 07/10/17 07:43 98.2 67 18 111/77 (88) 92 07/10/17 07:00 60 07/10/17 06:11 88 07/10/17 05:02 65 07/10/17 04:00 68 07/10/17 03:54 68 07/10/17 03:50 98.6 68 101/71 (81) 93 07/10/17 02:00 66 07/10/17 01:00 66 07/10/17 00:57 98.3 64 119/65 (83) 95 07/10/17 00:00 72 07/09/17 23:00 79 07/09/17 22:00 86 07/09/17 21:00 86 07/09/17 20:00 78 07/09/17 20:00 98.3 64 119/65 (83) 95 07/09/17 19:00 92 07/09/17 18:00 101 07/09/17 17:00 93 07/09/17 16:00 102 07/09/17 15:00 98.5 98 18 119/82 (94) 100 07/09/17 15:00 80 07/09/17 14:00 92 07/09/17 13:00 109 07/09/17 12:00 100 07/09/17 11:00 98.7 93 18 117/70 (86) 98 07/09/17 11:00 91 I/O 07/09/17 07/09/17 07/09/17 07/10/17 07/10/17 07/10/17 07:00 15:00 23:00 07:00 15:00 23:00 Intake Total 240 ml 840 ml 240 ml Output Total 400 ml 750 ml 300 ml Balance -160 ml 90 ml -60 ml Intake Oral 240 ml 840 ml 240 ml Output Urine Total 400 ml 750 ml 300 ml # Bowel Movements 1 Result Diagram: 07/08/17 1013 07/08/17 1013 Imaging Last Impressions Chest X-Ray 07/07/171932 Signed Impressions: Service Date/Time: Friday, July 07, 2017 19:53 - CONCLUSION: No evidence of acute cardiopulmonary disease. Oscar Burris MD CT Angiography 07/07/171932 Signed Impressions: Service Date/Time: Friday, July 07, 2017 20:31 - CONCLUSION: 1. No pulmonary embolus or other acute cardiopulmonary disease demonstrated. 2. Mild emphysema. 3. Coronary artery calcification. 4. Benign appearing cysts of the upper pole of each kidney. 5. 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 Oscar Burris MD Objective Remarks GENERAL: NAD SKIN: Warm and dry. HEAD: Normocephalic. EYES: No scleral icterus. No injection or drainage. NECK: Supple, trachea midline. No JVD or lymphadenopathy. CARDIOVASCULAR: Regular rate and rhythm without murmurs, gallops, or rubs. RESPIRATORY: Breath sounds equal bilaterally. No accessory muscle use. GASTROINTESTINAL: Abdomen soft, non-tender, nondistended. MUSCULOSKELETAL: No cyanosis, or edema. BACK: Nontender without obvious deformity. No CVA tenderness. Procedures None A/P Problem List: (1) Paroxysmal atrial flutter ICD Code: I48.92 - Unspecified atrial flutter Status: Acute (2) HLD (hyperlipidemia) ICD Code: E78.5 - Hyperlipidemia, unspecified Status: Chronic Assessment and Plan 51-year-old man with Atrial fibrillation with RVR s/p Cardizem CD 240 mg daily Currently on Lopressor 50 mg twice a day, ANUPAMA inhibitor and Been Appreciate input from cardiology 2-D echo with EF 25% Hyperlipidemia Continue home statin, simvastatin Congestion -Reports congestion, [facility]. -Continue guaifenesin as needed DVT prop Moose Mckinnon MD Jul 10, 2017 10:40
[2017-07-10] MEDS ORDERED: ENAL2.5T PO (10:42)
[2017-07-10] MEDS ORDERED: METO-309 PO (10:42)
[2017-07-10] MEDS ORDERED: COUG100S PO (10:42)
[2017-07-10] MEDS ORDERED: APIX5TAB PO (10:42)
--- NOTE | 2017-07-10 10:46 | HHI.DS ---
Discharge Summary Admission Date Jul 07, 2017 at 22:38 Discharge Date: Jul 10, 2017 Admitting Diagnosis aflutter with RVR, new onset (1) Paroxysmal atrial flutter ICD Code: I48.92 - Unspecified atrial flutter Status: Acute (2) HLD (hyperlipidemia) ICD Code: E78.5 - Hyperlipidemia, unspecified Status: Chronic Procedures None Brief History - From Admission 51-year-old male with a past medical history significant for hyperlipidemia presents to the emergency department for evaluation of atrial fibrillation. The patient has had chest congestion for the past month and [facility]. He complains of shortness of breath with a productive cough. His shortness of breath is worse with exertion. He endorses palpitations. Denies any chest pain. No lower extremity edema. No fever/ chills. No nausea/vomiting/diarrhea. No lateralizing signs/symptoms. CBC/BMP: 07/08/17 1013 07/08/17 1013 Significant Findings Laboratory Tests Test 07/07/17 17:00 07/07/17 19:48 07/08/17 10:13 Platelet Count 133 TH/MM3 (150-450) 128 TH/MM3 (150-450) Neutrophils (%) (Auto) 74.7 % (16.0-70.0) 81.6 % (16.0-70.0) Troponin I LESS THAN 0.02 NG/ML B-Type Natriuretic Peptide 228 PG/ML (0-100) Red Blood Count 4.42 MIL/MM3 (4.50-5.90) Lymphocytes # (Auto) 0.6 TH/MM3 (1.0-4.8) Random Glucose 157 MG/DL (74-106) Estimat Glomerular Filtration Rate 88 ML/MIN (>89) Total Bilirubin 1.1 MG/DL (0.2-1.0) Indirect Bilirubin 0.9 MG/DL (0.0-0.8) Cholesterol Level 117 MG/DL (120-200) HDL Cholesterol 30.9 MG/DL (40.0-60.0) Imaging Last Impressions Chest X-Ray 3/1932 Signed Impressions: Service Date/Time: Friday, July 07, 2017 19:53 - CONCLUSION: No evidence of acute cardiopulmonary disease. Oscar Burris MD CT Angiography 07/07/171932 Signed Impressions: Service Date/Time: Friday, July 07, 2017 20:31 - CONCLUSION: 1. No pulmonary embolus or other acute cardiopulmonary disease demonstrated. 2. Mild emphysema. 3. Coronary artery calcification. 4. Benign appearing cysts of the upper pole of each kidney. 5. 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 Oscar Burris MD PE at Discharge GENERAL: NAD SKIN: Warm and dry. HEAD: Normocephalic. EYES: No scleral icterus. No injection or drainage. NECK: Supple, trachea midline. No JVD or lymphadenopathy. CARDIOVASCULAR: Regular rate and rhythm without murmurs, gallops, or rubs. RESPIRATORY: Breath sounds equal bilaterally. No accessory muscle use. GASTROINTESTINAL: Abdomen soft, non-tender, nondistended. MUSCULOSKELETAL: No cyanosis, or edema. BACK: Nontender without obvious deformity. No CVA tenderness. Hospital Course While in hospital, patient was treated with Atrial fibrillation with RVR Initially on Cardizem drip and switch to by mouth Cardizem CD 240 mg daily. However secondary to RVR, patient was switched to Lopressor 50 mg twice a day. Appreciated input from cardiology 2-D echo with EF 25% and he was started on ANUPAMA inhibitor He was placed on Eliquis milligrams twice a day Hyperlipidemia Treated with home statin, simvastatin Congestion -Reports congestion, [facility]. -Improved with guaifenesin as needed DVT prop Eliquis Pt Condition on Discharge: Good Discharge Disposition: Discharge Home Discharge Time: <= 30 minutes Discharge Instructions DIET: Follow Instructions for: Heart Healthy Diet Activities you can perform: Regular-No Restrictions Follow up Referrals: Cardiology PCP Follow-up - 1 Week New Medications: Apixaban (Eliquis) 5 Mg Tab 5 MG PO BID for Prevent Blood Clot, #60 TAB Enalapril (Enalapril) 2.5 Mg Tab 2.5 MG PO DAILY for Blood Pressure Management, #30 TAB Guaifenesin (Cough Syrup) 100 Mg/5 Ml Syrp 200 MG PO Q4H PRN for COUGH, #10 MG Metoprolol Tartrate (Lopressor) 50 Mg Tab 50 MG PO Q12HR for Blood Pressure Management, #60 TAB Continued Medications: Simvastatin (Simvastatin) 40 Mg Tab 20 MG PO HS for Cholesterol Management, #30 TAB 0 Refills Moose Ballard MD Jul 10, 2017 10:46
[2017-07-10] MEDS: PRAVASTATIN SOD 40 MG TAB PO SCH (22:09)
[2017-07-11] VITALS (26 sets, daily range): BP systolic 102–125; BP diastolic 58–92; PULSE 57–136; RESP 16–18; TEMP 97.6–98.3; O2SAT 93–97
--- NOTE | 2017-07-11 07:57 | PD.CARD.PN ---
Subjective Subjective Remarks No dyspnea, CP, dizziness. Minimal fluttering palpitations. Objective Medications Item Value Date Time Enalapril Maleate 2.5 mg 07/10/17 0900 (Vasotec) DAILY/PO 07/10/17 0927 Metoprolol 50 mg 07/10/17 0900 Tartrate Q12HR/PO (Lopressor) Pravastatin Sodium 40 mg 07/08/172099 (Pravachol) HS/PO 07/10/172208 Current Medications Medications (Trade) Dose Ordered Sig/Marlen Route Start Time Stop Time Status Last Admin (NS Flush) 2 ml UNSCH PRN IVF 07/07/17 19:45 07/07/17 21:47 (Tylenol) 650 mg Q4H PRN PO 07/07/17 23:15 (Zofran Inj) 4 mg Q6H PRN IVP 07/07/17 23:15 (Narcan Inj) 0.4 mg UNSCH PRN IV PUSH 07/07/17 23:15 (Pravachol) 40 mg HS PO 07/08/17 21:00 07/10/17 22:09 (Robitussin Liq) 200 mg Q4H PRN PO 07/08/17 17:00 07/09/17 23:24 (Vasotec) 2.5 mg DAILY PO 07/10/17 09:00 07/10/17 09:27 (Lopressor) 50 mg Q12HR PO 07/10/17 09:00 07/10/17 09:27 Vital Signs / I&O Vital Signs Date Time Temp Pulse Resp B/P (MAP) Pulse Ox O2 Delivery O2 Flow Rate FiO2 07/11/17 07:47 97.7 75 18 125/92 (103) 96 07/11/17 07:00 81 07/11/17 06:00 65 07/11/17 05:00 66 07/11/17 04:00 88 07/11/17 04:00 98.2 57 18 125/70 (88) 95 07/11/17 03:00 68 07/11/17 02:00 66 07/11/17 01:00 82 07/11/17 00:00 76 07/11/17 00:00 98.0 57 18 120/58 (78) 93 07/10/17 23:00 86 3/19/18 22:00 88 07/10/17 21:00 88 07/10/17 20:00 86 07/10/17 20:00 98.7 55 18 107/74 (85) 98 07/10/17 18:00 92 07/10/17 17:00 86 07/10/17 16:00 66 07/10/17 15:31 97.7 68 18 118/78 (91) 98 07/10/17 15:00 68 07/10/17 14:00 84 07/10/17 13:00 64 07/10/17 12:00 76 07/10/17 11:39 64 18 113/79 (90) 98 07/10/17 11:00 67 07/10/17 10:00 90 07/10/17 09:00 136 07/10/17 08:00 68 I/O 07/10/17 07/10/17 07/10/17 07/11/17 07/11/17 07/11/17 07:00 15:00 23:00 07:00 15:00 23:00 Intake Total 240 ml 720 ml Output Total 300 ml 560 ml Balance -60 ml 160 ml Intake Oral 240 ml 720 ml Output Urine Total 300 ml 560 ml # Voids 3 Physical Exam GENERAL: Well developed, well nourished. No acute distress. HEENT: Jugular venous pressure is normal. CHEST: Lungs clear to auscultation bilaterally. Unlabored respiratory effort. CARDIAC: Irregular rate and rhythm without S3, S4, or murmur. ABDOMEN: Soft, nontender, no hepatosplenomegaly. Bowel sounds present. EXTREMITIES: No clubbing, cyanosis, or edema. Assessment and Plan Problem List: (1) Paroxysmal atrial flutter ICD Codes: I48.92 - Unspecified atrial flutter Status: Acute Plan: Overall stable. HR's normal. EF reportedly 25% by echo. REC await ablation by Dr. Mantilla today will leave rest of cardiac care to Dr. Mantilla (2) Cardiomyopathy ICD Codes: I42.9 - Cardiomyopathy, unspecified Status: Acute Plan: EF reportedly 25% by echo. No definite acute CHF. Hypokinesis appears global. Rec continue metoprolol, add ANUPAMA-I, repeat echo in 3 months. Cardiomyopathy possibly tachycardia-mediated. (3) Hyperlipidemia ICD Codes: E78.5 - Hyperlipidemia, unspecified Status: Chronic Plan: Continue statin therapy. [facility] Rec primary prevention goals. Code Status full code Discussed Condition With patient Problem Qualifiers (1) Cardiomyopathy: Qualified Codes: I42.9 - Cardiomyopathy, unspecified (2) Hyperlipidemia: Qualified Codes: E78.5 - Hyperlipidemia, unspecified Matt Stubbs MD Jul 11, 2017 07:57
--- NOTE | 2017-07-11 09:17 | MB ---
cc: Trish Mantilla MD DATE OF CONSULT: 07/03/2017 REASON FOR CONSULTATION: Atrial flutter, unable to control with medication. HISTORY OF PRESENT ILLNESS: Mr. Clinton is a 51-year-old gentleman with morbid obesity, bladder cancer, hyperlipidemia, high blood pressure, admitted due to atrial further, ventricular response. He was having shortness of breath on minimal activity. During hospitalization, they tried to control the heart rate. I was consulted for evaluation and management. The chart was reviewed. The patient was evaluated. ALLERGIES: NONE. SOCIAL HISTORY: Quit smoking years ago. Negative for drinking. FAMILY HISTORY: Noncontributory to his current medical condition. MEDICATIONS: Currently, the gentleman is on acetaminophen, he is on Eliquis, he is on enalapril, he is on metoprolol 50 mg twice a day, Pravachol. REVIEW OF SYSTEMS: Currently, he felt no chest pain, some shortness of breath and palpitation. No vomiting, no fever. PHYSICAL EXAMINATION: GENERAL: Alert, fully oriented. VITAL SIGNS: Blood pressure 118/68, pulse 68, respiratory rate 18. LUNGS: Ventilated. CARDIOVASCULAR: S1, S2, regular. ABDOMEN: Soft, obese. No mass or bruit. EXTREMITIES: With no edema. ELECTROCARDIOGRAM: Indicates atrial flutter, poor R-wave progression. LABORATORY DATA: Hemoglobin 13.2, white blood cell 5.7, potassium 4.3, creatinine 0.90. Troponin less than 0.02. ASSESSMENT AND RECOMMENDATIONS: Mr. Clinton has atrial flutter. He is symptomatic. He is on Eliquis. Electrophysiology study and ablation discussed with him. The risks, the nature and the benefits of the procedure are clearly stated to him. Risks include pneumothorax, cardiac perforation, stroke, need for open heart surgery and even . The patient understood and agreed to proceed. Procedure will be scheduled for tomorrow. Trish Mantilla MD /JOSH , 06:08 PM , 07:27 PM
--- NOTE | 2017-07-11 09:42 | HHI.PR ---
Subjective Remarks Follow-up atrial fibrillation with RVR 07/09/17-patient seen and examined, denies any chest pain however complain of congestions. 07/10/17-patient seen and examined, stable and no complaint. Looking for discharge home 07/11/17-patient seen and examined, some fluttering overnight.Discharge held yesterday. Plan for Ablation Objective Vitals Vital Signs Date Time Temp Pulse Resp B/P (MAP) Pulse Ox O2 Delivery O2 Flow Rate FiO2 07/11/17 07:47 97.7 75 18 125/92 (103) 96 07/11/17 07:00 81 07/11/17 06:00 65 07/11/17 05:00 66 07/11/17 04:00 88 07/11/17 04:00 98.2 57 18 125/70 (88) 95 07/11/17 03:00 68 07/11/17 02:00 66 07/11/17 01:00 82 07/11/17 00:00 76 07/11/17 00:00 98.0 57 18 120/58 (78) 93 07/10/17 23:00 86 07/10/17 22:00 88 07/10/17 21:00 88 07/10/17 20:00 86 07/10/17 20:00 98.7 55 18 107/74 (85) 98 07/10/17 18:00 92 07/10/17 17:00 86 07/10/17 16:00 66 07/10/17 15:31 97.7 68 18 118/78 (91) 98 07/10/17 15:00 68 07/10/17 14:00 84 07/10/17 13:00 64 07/10/17 12:00 76 07/10/17 11:39 64 18 113/79 (90) 98 07/10/17 11:00 67 07/10/17 10:00 90 I/O 07/10/17 07/10/17 07/10/17 07/11/17 07/11/17 07/11/17 07:00 15:00 23:00 07:00 15:00 23:00 Intake Total 240 ml 720 ml Output Total 300 ml 560 ml Balance -60 ml 160 ml Intake Oral 240 ml 720 ml Output Urine Total 300 ml 560 ml # Voids 3 Result Diagram: 07/08/17 1013 07/08/17 1013 Objective Remarks GENERAL: NAD SKIN: Warm and dry. HEAD: Normocephalic. EYES: No scleral icterus. No injection or drainage. NECK: Supple, trachea midline. No JVD or lymphadenopathy. CARDIOVASCULAR: Regular rate and rhythm without murmurs, gallops, or rubs. RESPIRATORY: Breath sounds equal bilaterally. No accessory muscle use. GASTROINTESTINAL: Abdomen soft, non-tender, nondistended. MUSCULOSKELETAL: No cyanosis, or edema. BACK: Nontender without obvious deformity. No CVA tenderness. Procedures None A/P Problem List: (1) Paroxysmal atrial flutter ICD Code: I48.92 - Unspecified atrial flutter Status: Acute (2) HLD (hyperlipidemia) ICD Code: E78.5 - Hyperlipidemia, unspecified Status: Chronic Assessment and Plan 51-year-old man with Atrial fibrillation with RVR Plan for cardiac Ablation today 07/11 by EP s/p Cardizem CD 240 mg daily Currently on Lopressor 50 mg twice a day, ANUPAMA inhibitor Appreciate input from cardiology 2-D echo with EF 25% Citlaly d/c Hyperlipidemia Continue home statin, simvastatin Congestion-Improved -Reports congestion, [facility] -Continue guaifenesin as needed DVT prop:Citlaly on hold Moose Ballard MD Jul 11, 2017 09:42
[2017-07-11] MEDS: METOPROLOL TARTRATE 50 MG TAB PO SCH ×2 (09:55→22:04)
[2017-07-11] MEDS: ENALAPRIL MALEATE 2.5 MG TAB PO SCH (09:55)
[2017-07-11] MEDS: PRAVASTATIN SOD 40 MG TAB PO SCH (22:05)
--- NOTE | 2017-07-11 23:24 | HHI.PR ---
Subjective Remarks Feeling ok Objective Vital Signs Date Time Temp Pulse Resp B/P (MAP) Pulse Ox O2 Delivery O2 Flow Rate FiO2 07/11/17 18:00 94 07/11/17 17:00 86 07/11/17 16:00 108 07/11/17 15:31 98.0 64 18 102/71 (81) 96 07/11/17 15:00 80 07/11/17 14:00 130 07/11/17 13:00 76 07/11/17 12:00 82 07/11/17 11:08 98.3 89 18 112/71 (85) 95 07/11/17 11:00 90 07/11/17 10:00 90 07/11/17 09:00 84 07/11/17 08:00 134 07/11/17 07:47 97.7 75 18 125/92 (103) 96 07/11/17 07:00 81 07/11/17 06:00 65 07/11/17 05:00 66 07/11/17 04:00 88 07/11/17 04:00 98.2 57 18 125/70 (88) 95 07/11/17 03:00 68 07/11/17 02:00 66 07/11/17 01:00 82 07/11/17 00:00 76 07/11/17 00:00 98.0 57 18 120/58 (78) 93 I/O 07/11/17 07/11/17 07/11/17 07/12/17 07/12/17 07/12/17 07:00 15:00 23:00 07:00 15:00 23:00 Intake Total 120 ml Output Total 800 ml Balance -680 ml Intake Oral 120 ml Output Urine Total 800 ml # Voids 3 Result Diagram: 07/08/17 1013 07/08/17 1013 Imaging Alert, fully oriented Lungs: ventilated Heart: S1, S2 regular, no gallop Abdomen: soft, no mass, obese Ext: no edema Last Impressions Chest X-Ray 07/07/171932 Signed Impressions: Service Date/Time: Friday, July 07, 2017 19:53 - CONCLUSION: No evidence of acute cardiopulmonary disease. Oscar Burris MD CT Angiography 07/07/171932 Signed Impressions: Service Date/Time: Friday, July 07, 2017 20:31 - CONCLUSION: 1. No pulmonary embolus or other acute cardiopulmonary disease demonstrated. 2. Mild emphysema. 3. Coronary artery calcification. 4. Benign appearing cysts of the upper pole of each kidney. 5. 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 Oscar Burris MD Current Medications Medications (Trade) Dose Ordered Sig/Marlen Route Start Time Stop Time Status Last Admin (NS Flush) 2 ml UNSCH PRN IVF 07/07/17 19:45 07/07/17 21:47 (Tylenol) 650 mg Q4H PRN PO 07/07/17 23:15 (Zofran Inj) 4 mg Q6H PRN IVP 07/07/17 23:15 (Narcan Inj) 0.4 mg UNSCH PRN IV PUSH 07/07/17 23:15 (Pravachol) 40 mg HS PO 07/08/17 21:00 07/11/17 22:05 (Robitussin Liq) 200 mg Q4H PRN PO 07/08/17 17:00 07/09/17 23:24 (Vasotec) 2.5 mg DAILY PO 07/10/17 09:00 07/11/17 09:55 (Lopressor) 50 mg Q12HR PO 07/10/17 09:00 07/11/17 22:04 Assessment and Plan Problem List: (1) Atrial flutter with rapid ventricular response ICD Codes: I48.92 - Unspecified atrial flutter Status: Acute Plan: In atrial flutter HR control for now EPS and ablation tomorrow AM Case discussed with patient (2) Cardiomyopathy ICD Codes: I42.9 - Cardiomyopathy, unspecified Status: Acute Plan: EF 25%. Possible tachycardia mediated cardiomyopathy On optimal medical management Problem Qualifiers (1) Cardiomyopathy: Qualified Codes: I42.9 - Cardiomyopathy, unspecified Trish Mantilla MD Jul 11, 2017 23:24
[2017-07-12] VITALS (16 sets, daily range): BP systolic 112–122; BP diastolic 67–72; PULSE 57–88; RESP 16–18; TEMP 98.3–99.2; O2SAT 95–98
[2017-07-12] MEDS ORDERED: HEPARIN SODIUM - IV 10,000 UNITS/10 ML VIAL ONE (07:27)
[2017-07-12] MEDS: METOPROLOL TARTRATE 50 MG TAB PO SCH ×2 (09:00→18:31)
[2017-07-12] MEDS ORDERED: ISOPROTERENOL HCL 0.2 MG/ML AMP IV ONE (09:26)
[2017-07-12] MEDS ORDERED: ONDANSETRON HCL 4 MG/2 ML VIAL IV PUSH PRN (10:30)
[2017-07-12] MEDS ORDERED: BACITRACIN OINT 0.9 GM PKT TOP ONE (10:30)
[2017-07-12] MEDS ORDERED: oxyCODONE/ACETAMINOPHEN 5 MG/325 MG TAB PO PRN ×2 (10:30)
[2017-07-12] MEDS ORDERED: LORazepam 2 MG/ML VIAL IV PUSH PRN (10:30)
[2017-07-12] MEDS ORDERED: LIDOCAINE HCL 1% 50 ML VIAL INFIL PRN (10:30)
[2017-07-12] MEDS ORDERED: SODIUM CHLOR 0.9% 250 ML INJ 250 ML IV PRN (10:30)
[2017-07-12] MEDS ORDERED: ATROPINE SULFATE 1 MG/ML VIAL IV PUSH PRN (10:30)
--- NOTE | 2017-07-12 10:57 | CATHPROC ---
[employer] HIS Report Study Information Study Number Admission Scheduled Start Study Start [id number] Jul 07 2017 10:38PM 07/12/2017 Jul 12 2017 9:06AM Referring Institution Admit Source Facility Department 1 Emergency department [facility] - Covering Machine Operator Physician and Clinical Staff Initial Trish Domingo Armed Security Professional Paco Silva,RT(R) Other Anesthesia, NO EXPERIENCE Recorder Den OROZCO, Esme Morrison RCIS Procedures Performed Procedure Location (Site) Vessel Name Ablation Procedure RF Ablation XIOMARA [employer] Equipment Time Cloth Wire Weaver Description Size Mfg Part Number Used/Scraped BIOSENSE PARTIDA CATHETER, CELSIUS DS, 8MM, F [id number] 09:54 FR 7 Used INC. TYPE QUAD *[id number] 09:18 [employer] INDUSTRIES PACK, CCL CUSTOM * Used *[id number] 09:18 [employer] PACER VALDEZ, LIMB * 2530 *[id number] Used [id number] 09:18 [employer] BLANKET,WARM AIR CCL * Used *[id number] 09:19 [employer] MED[employer] CATHETER, JSN, QUAD FR 5 Used *[id number] 09:19 [employer] MEDICAL CATHETER, JSN, QUAD FR 5 Used *[id number] 09:19 [employer] MEDICAL CATHETER, JSN, QUAD FR 5 Used *[id number] 09:19 [employer] MEDICAL CATHETER, JSN, QUAD FR 5 Used *[id number] 09:18 [employer] MEDICAL ELECTRODE KIT, SHYLA X SURFACE * Used *[id number] 330360 09:17 [employer] MED[employer] SHEATH, EPS, FR5 FAST CATH FR 5 Used *[id number] 093089 09:17 [employer] MED[employer] SHEATH, EPS, FR5 FAST CATH FR 5 Used *[id number] 09:17 [employer] MEDICAL SHEATH, EPS, FR5 FAST CATH FR 5 Used *[id number] 244986 09:52 [employer] MED[employer] SHEATH, EPS, FR5 FAST CATH FR 5 Used *[id number] 236274 09:17 [employer] MED[employer] SHEATH, EPS, FR6 FAST CATH FR 6 Used *[id number] 09:17 [employer] MEDICAL SHEATH, EPS, FR8 FAST CATH FR 8 Used *[id number] [facility] PAD, ELECTROSURGICAL 09:18 * [id number] *[id number] Used SURGICAL GROUNDING (BLUE) History: Allergies Allergy Reaction NKDA History: Risk Factors Family History of Hypertension Dyslipidemia Previous KS Previous Heart Failure Premature CAD Yes Yes No No No Prior Valve Prior PCI Prior CABG Surgery No No No Cerebrovascular Peripheral Artery Chronic Lung On Dialysis Diabetes Disease Disease Disease No No No No No History: Stress Tests Stress or Imaging Studies Performed No History: Other Current Smoker Quit Packs a Day No 20 Years Ago 1 Labs Hgb (g/dl) Hct (%) WBC (l/cumm) 11.60-17.00 35.00-51.00 4.00-11.00 13.0 39 4.4 Glucose (mg/dl) BUN (mg/dl) Creatinine (mg/dl) BUN:Creatinine (1:x) 74.00-106.00 7.00-18.00 0.50-1.30 10.00-20.00 157 10 0.9 11.1 Na (meq/l) K (meq/l) 136.00-145.00 3.50-5.10 138 4.3 INR (PTT:PT) 0.90-1.10 1.1 CPK-MB (ng/ML) 0.50-3.60 Not Drawn Medication Medication Total Dose (Bolus/Oral) Medication Total Dosage/Unit 1% XYLOCAINE 40 mL Medications (Bolus/Oral) Medication Time Given Dosage/Unit Administered By Reason 1% XYLOCAINE 07/12/2017 9:47:44 AM 20 mL Trish Mantilla 20 mL 1% XYLOCAINE given in lab by Trish Mantilla in Left Groin via Subcutaneous. 1% XYLOCAINE 07/12/2017 9:51:07 AM 20 mL Trish Mantilla 20 mL 1% XYLOCAINE given in lab by Trish Mantilla in Right Groin via Subcutaneous. Medication (Drip) Medication Time Given Dosage/Unit Concentration/Unit Diluent (ml) Solution ISUPREL 07/12/2017 10:06:39 AM 5 mcg/min 1 mg 250 NaCl .9 5 mcg/min ISUPREL given in lab by Teresa, NO EXPERIENCE via Peripheral IV. Pump/Drip Flow = 75 ml/hr using NaCl .9 with a concentration of 1 mg in 250 ml. Ordered by Trish Mantilla. ISUPREL 07/12/2017 10:15:38 AM 5 mcg/min 1 mg 250 NaCl .9 5 mcg/min ISUPREL given in lab by Anesthesia, NO EXPERIENCE via Peripheral IV. Pump/Drip Flow = 75 ml/hr using NaCl .9 with a concentration of 1 mg in 250 ml. Ordered by Trish Mantilla. Discontinued at 07/12/2017 10:15. Initial Case Assessment Cardiovascular NIBP 120/77 Edema Present Skin color Skin None Normal Warm Dry Neurological State Oriented to time-place- Alert Moves all extremities person Respiration - General Respiration Rate SpO2 (%) (B/min) 16 98 Chronological Log Time Study Chronological Log 8:41:16 Patient arrived via Bed. 8:41:58 Patient Name, D.O.B, / Armband Verified By R.N. 8:42:45 Consent signed by the physician and the patient and verified by the Covering Machine Operator staff. 8:44:59 Pre-op and post- op instructions given; patient acknowledges understanding of instructions. 8:46:10 Patient has been NPO for More than 6Hrs. 8:52:57 Patient Warmer Placed on the Table. 8:53:50 History and physical on the chart or being dictated. 8:54:21 Presedation assessment performed by Covering Machine Operator RN. 8:55:26 Rosario Prominences Protected 8:59:12 Disposable Defibrillator Pads Placed On Patient. 9:08:11 Skin Breakdown- none reported by patient 9:09:39 A # 18 IV was noted in the Antecubital (left). Grade = 0 9:09:52 A # 20 IV was noted in the Forearm (right). Grade = 0 9:10:19 Table restraints applied according to hospital policy Assessment: Initial Case, FWBM=738/77 mmhg, Edema=None, Color=Normal, Skin = Warm, Dry 9:10:26 Neurological: State=Alert, Ox3, BRYANT Respiration: Resp=16 B/min, SpO2=98 % 9:18:57 Bilateral groins prepped with 2% chlorhexidine, and draped after a 3 minute waiting time. 9:19:25 Anesthesia at bedside. Assumes care of patient. 9:23:39 Reference ECG taken 9:35:15 PACU called. Spoke to Ravi about case changing to general anesthesia 9:37:27 MD paged 9:43:28 MD arrived. Time Out. Correct patient, procedure, procedure equipment, site and side verified with physicia n present. Time 9:47:31 concurred by MD, individual staff and NO EXPERIENCE. Time Out #2 - Consents verified, patient in correct position, all results are labled and displa yed, safety precautions 9:47:34 taken, antibiotics administered. Time out concurred by MD, individual staff and NO EXPERIENCE in procedu re 9:47:37 Case Start 9:47:44 20 mL 1% XYLOCAINE given in lab by Trish Mantilla in Left Groin via Subcutaneous. 9:48:40 Vascular access was obtained in the Fem Vein (left). 9:49:16 Vascular access was obtained in the Fem Vein (left). 9:49:26 Vascular access was obtained in the Fem Vein (left). 9:50:32 A SHEATH, EPS, FR5 FAST CATH FR 5 was advanced into the Fem Vein (left) using the Modified S eldinger technique. 9:50:49 A SHEATH, EPS, FR5 FAST CATH FR 5 was advanced into the Fem Vein (left) using the Modified S eldinger technique. 9:50:52 A SHEATH, EPS, FR6 FAST CATH FR 6 was advanced into the Fem Vein (right) using the Modified Seldinger technique. 9:51:07 20 mL 1% XYLOCAINE given in lab by Trish Mantilla in Right Groin via Subcutaneous. 9:51:25 Vascular access was obtained in the Fem Vein (right). 9:52:21 A SHEATH, EPS, FR5 FAST CATH FR 5 was advanced into the Fem Vein (right) using the Modified Seldinger technique. 9:52:35 Vascular access was obtained in the Fem Vein (right). 9:52:39 A SHEATH, EPS, FR8 FAST CATH FR 8 was advanced into the Fem Vein (right) using the Modified Seldinger technique. A CATHETER, JSN, QUAD FR 5 was advanced vis Fem Vein (left) and placed in the CS. Placement was visually 9:53:04 confirmed under fluoroscopy. A CATHETER, JSN, QUAD FR 5 was advanced vis Fem Vein (left) and placed in the HIS. Placement wa s visually 9:54:04 confirmed under fluoroscopy. A CATHETER, JSN, QUAD FR 5 was advanced vis Fem Vein (left) and placed in the RVA. Placement wa s visually 9:54:35 confirmed under fluoroscopy. A CATHETER, JSN, QUAD FR 5 was advanced vis Fem Vein (right) and placed in the HRA. Placement w as visually 9:54:57 confirmed under fluoroscopy. A CATHETER, CELSIUS DS, 8MM, F TYPE QUAD FR 7 was advanced vis Fem Vein (right) and placed in t he Isthmus. 9:56:17 Placement was visually confirmed under fluoroscopy. 9:56:39 RF Ablation of the XIOMARA with a CATHETER, CELSIUS DS, 8MM, F TYPE QUAD FR 7. 10:02:04 Incremental Atrial Pacing in progress 5 mcg/min ISUPREL given in lab by Anesthesia, NO EXPERIENCE via Peripheral IV. Pump/Drip Flow = 75 ml/hr using NaCl .9 with 10:06:39 a concentration of 1 mg in 250 ml. Ordered by Trish Mantilla. 10:10:14 Ablation procedure performed: Aflutter. 10:10:21 EP Procedure was performed. 5 mcg/min ISUPREL given in lab by Anesthesia, NO EXPERIENCE via Peripheral IV. Pump/Drip Flow = 75 ml/hr using NaCl .9 with 10:15:38 a concentration of 1 mg in 250 ml. Ordered by Trish Mantilla. Discontinued at 07/12/2017 10:15. 10:17:05 All EP Catheters was removed 10:18:36 Case End 10:19:39 8 fr and 5 fr Sheath removed from RFV; pressure applied to access site. 10:23:03 5 FR Sheaths removed from LFV ; pressure applied to access site. 10:23:34 Bedside Report will be given. 10:34:14 PACU called. Spoke to ravi 10:47:20 [facility] to [facility] End Study - Contrast Media Used In Study Contrast Total Opened (mL) Total Used (mL) Total Wasted (mL) Unspecified 0 0 0 End Study - Maximum Contrast Load Max Contrast Load (mL) 598.2 End Study - Radiation Exposure Fluoro Time (minutes) 1.9 End Study - Patient Disposition Complications Transferred To Interventional Outcome No Telemetry Bed successful
[2017-07-12] MEDS ORDERED: APIXABAN 5 MG TABLET PO SCH ×2 (11:00→21:00)
[2017-07-12] MEDS ORDERED: DO NOT ADM ANY ANTICOAGULANT DRUGS PRN (11:45)
[2017-07-12] MEDS ORDERED: PROPOFOL 200 MG/20 ML AMP IV ONE (12:00)
[2017-07-12] MEDS ORDERED: NEOSTIGMINE 5 MG/5 ML SYRINGE IV PUSH ONE (12:00)
[2017-07-12] MEDS ORDERED: DEXAMETHASONE SOD PHOS 4 MG/ML VIAL IV ONE (12:00)
[2017-07-12] MEDS ORDERED: ONDANSETRON HCL 4 MG/2 ML VIAL IV ONE (12:00)
[2017-07-12] MEDS ORDERED: ROCURONIUM INJ 50 MG/5 ML SYRINGE IV PUSH ONE (12:00)
[2017-07-12] MEDS ORDERED: PHENYLEPH/NS 1000 MCG/10 ML SYR IV ONE (12:00)
[2017-07-12] MEDS ORDERED: GLYCOPYRROLATE 1 MG/5 ML SYRINGE IV PUSH ONE (12:00)
--- NOTE | 2017-07-12 12:41 | HHI.PR ---
Subjective Remarks Follow-up atrial fibrillation with RVR 07/09/17-patient seen and examined, denies any chest pain however complain of congestions. 07/10/17-patient seen and examined, stable and no complaint. Looking for discharge home 07/11/17-patient seen and examined, some fluttering overnight.Discharge held yesterday. Plan for Ablation 07/12/17-patient seen and examined, he status post ablation today. Currently resting. Objective Vitals Vital Signs Date Time Temp Pulse Resp B/P (MAP) Pulse Ox O2 Delivery O2 Flow Rate FiO2 07/12/17 11:25 97.6 68 16 108/65 (79) 95 Nasal Cannula 3 07/12/17 11:15 69 15 104/61 (75) 94 Nasal Cannula 3 07/12/17 11:00 71 15 107/63 (78) 95 Nasal Cannula 4 07/12/17 10:50 97.8 76 15 110/75 (87) 95 Nasal Cannula 4 07/12/17 07:00 98.3 65 16 120/70 (87) 97 07/12/17 06:00 66 07/12/17 05:00 86 07/12/17 04:00 98.4 57 16 116/67 (83) 95 07/12/17 04:00 81 07/12/17 03:00 86 07/12/17 02:00 86 07/12/17 01:00 86 07/12/17 00:00 99.2 63 16 112/70 (84) 95 07/12/17 00:00 88 07/11/17 23:00 96 07/11/17 22:00 134 07/11/17 21:00 134 07/11/17 20:00 97.6 136 16 122/84 (97) 97 07/11/17 20:00 109 07/11/17 18:00 94 07/11/17 17:00 86 07/11/17 16:00 108 07/11/17 15:31 98.0 64 18 102/71 (81) 96 07/11/17 15:00 80 07/11/17 14:00 130 07/11/17 13:00 76 I/O 07/11/17 07/11/17 07/11/17 07/12/17 07/12/17 07/12/17 07:00 15:00 23:00 07:00 15:00 23:00 Intake Total 120 ml 520 ml Output Total 800 ml 900 ml Balance -680 ml -380 ml Intake Oral 120 ml 520 ml Output Urine Total 800 ml 900 ml # Voids 3 3 Result Diagram: 07/08/17 1013 07/08/17 1013 Objective Remarks GENERAL: NAD SKIN: Warm and dry. HEAD: Normocephalic. EYES: No scleral icterus. No injection or drainage. NECK: Supple, trachea midline. No JVD or lymphadenopathy. CARDIOVASCULAR: Regular rate and rhythm without murmurs, gallops, or rubs. RESPIRATORY: Breath sounds equal bilaterally. No accessory muscle use. GASTROINTESTINAL: Abdomen soft, non-tender, nondistended. MUSCULOSKELETAL: No cyanosis, or edema. BACK: Nontender without obvious deformity. No CVA tenderness. Procedures CARDIAC Ablation 07/12/17 A/P Problem List: (1) Paroxysmal atrial flutter ICD Code: I48.92 - Unspecified atrial flutter Status: Acute (2) HLD (hyperlipidemia) ICD Code: E78.5 - Hyperlipidemia, unspecified Status: Chronic Assessment and Plan 51-year-old man with Atrial flutter with RVR s/p cardiac Ablation today 07/12 by EP s/p Cardizem CD 240 mg daily Currently on Lopressor 50 mg twice a day, ANUPAMA inhibitor Appreciate input from cardiology 2-D echo with EF 25% Elioneida d/c Hyperlipidemia Continue home statin, simvastatin Congestion-Improved -Continue guaifenesin as needed DVT prop:Celenaqustacy on hold Moose Ballard MD Jul 12, 2017 12:41
[2017-07-12] MEDS: ENALAPRIL MALEATE 2.5 MG TAB PO SCH (16:55)
[2017-07-12] MEDS ORDERED: APIXABAN 5 MG TABLET PO ONE (19:15)
--- NOTE | 2017-07-12 19:54 | HHI.DS ---
Discharge Summary Admission Date Jul 07, 2017 at 22:38 Discharge Date: Jul 12, 2017 Admitting Diagnosis aflutter with RVR, new onset (1) Paroxysmal atrial flutter ICD Code: I48.92 - Unspecified atrial flutter Status: Acute (2) HLD (hyperlipidemia) ICD Code: E78.5 - Hyperlipidemia, unspecified Status: Chronic Procedures CARDIAC Ablation 07/12/17 Brief History - From Admission 51-year-old male with a past medical history significant for hyperlipidemia presents to the emergency department for evaluation of atrial fibrillation. The patient has had chest congestion for the past month and [facility]. He complains of shortness of breath with a productive cough. His shortness of breath is worse with exertion. He endorses palpitations. Denies any chest pain. No lower extremity edema. No fever/ chills. No nausea/vomiting/diarrhea. No lateralizing signs/symptoms. CBC/BMP: 07/08/17 1013 07/08/17 1013 Imaging Last Impressions Chest X-Ray 07/07/171932 Signed Impressions: Service Date/Time: Friday, July 07, 2017 19:53 - CONCLUSION: No evidence of acute cardiopulmonary disease. Oscar Burris MD CT Angiography 07/07/171932 Signed Impressions: Service Date/Time: Friday, July 07, 2017 20:31 - CONCLUSION: 1. No pulmonary embolus or other acute cardiopulmonary disease demonstrated. 2. Mild emphysema. 3. Coronary artery calcification. 4. Benign appearing cysts of the upper pole of each kidney. 5. 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 Oscar Burris MD PE at Discharge GENERAL: NAD SKIN: Warm and dry. HEAD: Normocephalic. EYES: No scleral icterus. No injection or drainage. NECK: Supple, trachea midline. No JVD or lymphadenopathy. CARDIOVASCULAR: Regular rate and rhythm without murmurs, gallops, or rubs. RESPIRATORY: Breath sounds equal bilaterally. No accessory muscle use. GASTROINTESTINAL: Abdomen soft, non-tender, nondistended. MUSCULOSKELETAL: No cyanosis, or edema. BACK: Nontender without obvious deformity. No CVA tenderness. Hospital Course While in the hospital, patient was treated for: Atrial flutter with RVR s/p cardiac Ablation 07/12 by EP s/p Cardizem CD 240 mg daily Treated with Lopressor 50 mg twice a day, ANUPAMA inhibitor , Celenaquis Appreciate input from cardiology 2-D echo with EF 25% Hyperlipidemia Treated with simvastatin Congestion-Improved -Treated with guaifenesin as needed DVT prop:Citlaly Pt Condition on Discharge: Good Discharge Disposition: Discharge Home Discharge Time: <= 30 minutes Discharge Instructions DIET: Follow Instructions for: Heart Healthy Diet Activities you can perform: Regular-No Restrictions Moose Ballard MD Jul 12, 2017 19:54
--- NOTE | 2017-07-12 20:00 | EKG ---
Date Performed: 07/12/2017 Time Performed: 11:09:01 PTAGE: 51 years EKG: Sinus rhythm POSSIBLE LEFT ATRIAL ENLARGEMENT INCOMPLETE RIGHT BUNDLE BRANCH BLOCK POSSIBLE RIGHT VENTRICULAR HYP ERTROPHY ABNORMAL ECG PREVIOUS TRACING : 07/07/2017 23.17 Compared to previous tracing Aflutter is no longer present DOCTOR: Jonathon Doherty Interpretating Date/Time 07/12/2017 20:00:02
[2017-07-12] MEDS: PRAVASTATIN SOD 40 MG TAB PO SCH (20:34)
--- NOTE | 2017-07-12 20:41 | HHI.PR ---
Addendum to Inpatient Note Addendum Reason: Additional Documentation Additional Information I was called by patient's nurse that pt's audio installer Dr Mantilla has cleared him for discharge today discussed with patient's attending, Dr Ballard, over the phone I was advised that pt is cleared for discharge, on current medications regimen. Came to see patient at the bedside. Patient had cardiac ablation done for his atrial fibrillation earlier this morning around 11:30 AM. Patient denies any complications with it. He has been walking around in the room and in the hallways. He denies any dyspnea/blood in his stool or blood in urine. He denies any acute symptoms. Chart reviewed. Patient's medications for discharge that were prescribed 2 days ago versus current regimen reviewed. Patient's latest echo shows EF of 25%. However patient denies any dyspnea. He is not known to have heart failure previously. He is not on any diuretics while in hospital. Patient received IV fluids during ablation procedure earlier this morning. About 600 cc. Patient is informed about this and that there is a possibility of him getting shortness of breath if he truly has CHF. Possible that he has transient heart failure because of tachycardia. Since he has not been on any diuretics, I would not start any medication on the patient without following him. He is explained in detail regarding this and to watch out for signs and symptoms of heart failure. He is informed that if he gets short of breath at all, to return to emergency room. In the exam, patient is awake, alert, oriented. Sitting at the chair. Heart rate is regular, no murmur appreciated. Lungs sounds are very clear. No rales. Abdomen is soft and nontender. Lower extremities did not reveal any peripheral edema. Patient has appointment with his [place] doctor tomorrow. He will be following up with the [place] audio installer in about a week. Patient is cleared for discharge. Discussed with patient in front of charge nurse all above. Rosemary Lora MD Jul 12, 2017 20:41
--- NOTE | 2017-07-25 15:16 | PD.CARD ---
Atrial Flutter PROCEDURE DATE: Jul 12, 2017 PROCEDURE PERFORMED Electrophysiology study, CS cannulation, 3-D mapping, radiofrequency ablation of atrial flutter, repeat electrophysiology study on Isuprel infusion. INDICATIONS FOR PROCEDURE Mr. Clinton is a 52-year-old male with history of shortness of breath , atrial flutter, previous cardioversion, back in atrial flutter, heart rate difficult to control referred for electrophysiology study and ablation. The risks, the nature and the benefit of the procedure are clearly stated to him. The risks include pneumothorax, cardiac perforation, stroke and even . The patient understood and agreed to proceed. PROCEDURE After written informed consent was obtained, the patient was brought to the EP lab where he was prepped and draped in the usual sterile fashion. Conscious sedation was initiated and maintained throughout the procedure by the anesthesiologist. Once sedation was verified, the left and right inguinal area was anesthetized with 2% Xylocaine. Using modified Seldinger technique, the left femoral vein was cannulated on three occasions, three guidewires were advanced over the wire. Three 5-Sudanese Hemaquets were advanced. Then the right femoral vein was cannulated on two occasions; two guidewire were advanced over the wire. A 6 and an 8-Sudanese Hemaquet were advanced. Then under fluoroscopic guidance through the 5-Sudanese Hemaquet, four 5-Sudanese Chon curved quadripolar electrophysiology catheters were advanced and placed and the His, upper right atrium, coronary sinus and right ventricular apex. Basic interval was measured. The patient was in atrial flutter. Cycle length was around 270 milliseconds. Then through the 8-Sudanese Hemaquet, a Cordis Ruiz 8-mm F-curved mapping and radiofrequency ablation catheter was advanced. Using CodeRyte endocardial solution mapping system, a three-dimensional configuration of the right atrium was obtained. Points were taken at the SVC, IVC, TV6, CS and His. Then the catheter was placed at the critical isthmus. Radiofrequency energy was delivered. Cycle length prolonged, subsequently converted into sinus rhythm. Further burn was delivered in the area. Then Isuprel infusion was initiated. No tachyarrhythmia was induced. At that point the procedure was complete. All catheters were removed. The patient is going to be transferred to the recovery room. That was a very difficult case. The patient unable to tolerate flat bed. Blood loss minimal. 1. Electrocardiogram: At baseline the patient was in atrial flutter. Postprocedure the patient is in sinus rhythm. 2. Basic Interval: Base cycle length was around 620 milliseconds. Post- ablation it was around 980 milliseconds. 3. Atrial Pacing Protocol: No tachyarrhythmia was induced post ablation. 4. Tachyarrhythmia: Atrial flutter was mapped and ablated. Ablation was successful. CONCLUSION Successful electrophysiology study, mapping, radiofrequency of atrial flutter. COMMENT AND RECOMMENDATIONS The patient is going to be transferred to the recovery room. He will be observed, when stable can be discharged home. Trish Mantilla MD Jul 25, 2017 15:16
== END 2017-07-12 21:00 | disposition home or self-care (01) | DRG 274 ==
LOC: NEPC 15:44 → NEDA 22:38 → NEDH 07-08 10:03 → HCIS 07-08 11:36
PROVIDERS: ADMIT Hospitalist; ATTEND Hospitalist
PROC: 02K83ZZ Map Conduction Mechanism, Percutaneous Approach (ICD-10-PCS; 2017-07-12)
PROC: 4A023FZ Measurement of Cardiac Rhythm, Percutaneous Approach (ICD-10-PCS; 2017-07-12)
PROC: 4A0234Z Measurement of Cardiac Electrical Activity, Percutaneous Approach (ICD-10-PCS; 2017-07-12)
PROC: 02583ZZ Destruction of Conduction Mechanism, Percutaneous Approach (ICD-10-PCS; principal; 2017-07-12 09:45)
DX: I48.92 Unspecified atrial flutter (principal); I42.9 Cardiomyopathy, unspecified; E66.01 Morbid (severe) obesity due to excess calories; E78.5 Hyperlipidemia, unspecified; I45.10 Unspecified right bundle-branch block; N40.0 Benign prostatic hyperplasia without lower urinary tract symptoms; I48.91 Unspecified atrial fibrillation; R00.0 Tachycardia, unspecified; Z85.51 Personal history of malignant neoplasm of bladder; Z92.21 Personal history of antineoplastic chemotherapy; Z92.3 Personal history of irradiation; Z68.38 Body mass index [BMI] 38.0-38.9, adult; Z87.891 Personal history of nicotine dependence
CPT/HCPCS: 71045; 71275; 76937; 80048; 80061; 80076; 82550; 82552; 83036; 83880; 84484; 85025; 85610; 85730; 93005; 93306; 93613; 93623; 93653; 96361; 96365; 96375; C1730; C1732; C2630; J1100; J1644; J1650; J2370; J2405; J2710; J3010; J7040; Q9967

== ENCOUNTER 2017-09-11 10:31 | Inpatient (IN) ==
[2017-10-22] MEDS ORDERED: Acetaminophen 325 MG Tablet PO PRN
[2017-10-22] MEDS ORDERED: hydrALAZINE 25 MG Tablet PO PRN
[2017-10-22] MEDS ORDERED: Morphine Inj 4 MG/ML Vial IV.PUSH PRN ×2
[2017-10-22] MEDS ORDERED: Propofol 1000 mg/100 ml Inj 1,000 MG/100 ML BOTTLE IV.CONT PRN (00:01)
[2017-10-22] MEDS ORDERED: Potassium Phosphate Inj 30 MMOL in Sodium Chlor 0.9% Inj 250 ML IV.SIG PRN (00:01)
[2017-10-22] MEDS ORDERED: Sodium Phosphate Inj 30 MMOL in Sodium Chlor 0.9% Inj 250 ML IV.SIG PRN (00:01)
[2017-10-22] MEDS ORDERED: Potassium Chloride 25 MEQ Effervescent Tablet PO PRN (00:01)
[2017-10-22] MEDS ORDERED: Potassium Phosphate 500 MG Soluble Tablet PO PRN ×2 (00:01)
[2017-10-22] MEDS ORDERED: Magnesium Sulfate Inj 4 GM in Sodium Chlor 0.9% Inj 92 ML IV.SIG PRN (00:01)
[2017-10-22] MEDS ORDERED: Magnesium Sulfate Inj 2 GM in Sodium Chlor 0.9% Inj 96 ML IV.SIG PRN (00:01)
[2017-10-22] MEDS ORDERED: Labetalol HCl Inj 100 MG/20 ML Vial IV.PUSH PRN (00:01)
[2017-10-22] MEDS ORDERED: Insulin NovoLIN Regular Correctional Sugar Inj ONE (00:44)
[2017-10-22] MEDS: Artificial Tears Opth Drops 15 ML Bottle EACH EYE SCH ×3 (06:14→22:07)
[2017-10-22] MEDS ORDERED: Docusate Sodium 100 MG Capsule PO SCH (09:00)
[2017-10-22] MEDS ORDERED: Bisacodyl 10 MG Supp RECTAL PRN ×2 (09:00)
[2017-10-22] MEDS: Senna/Docusate Sodium 8.6/50 MG Tablet PO SCH ×2 (09:14→21:21)
[2017-10-22] MEDS: Sodium Chloride 1 GM Tablet PO SCH ×3 (09:14→18:58)
[2017-10-22] MEDS: Metoprolol Tartrate 50 MG Tablet PO SCH ×2 (09:15→21:19)
[2017-10-22] MEDS: levETIRAcetam 500 MG Tablet PO SCH ×2 (09:15→21:20)
[2017-10-22] MEDS: Pantoprazole Inj 40 MG Vial IV.PUSH SCH (09:27)
--- NOTE | 2017-10-22 13:38 | P.PNID ---
Subjective Remarks: ID COVERAGE Patient is a 52-year-old male, had surgery on a brain mass, and was found to have metastatic non-small cell carcinoma. Has recently been diagnosed to have Lisa ventriculitis, from a CSF October 10. Redo suboccipital craniectomy,C1 laminectomy, Duraplasty with repair of CSF leak on Oct 10, [address] CSF culture, October 10, October 16, and October 17 all with Lisa albicans Has been on amphotericin and fluconazole since October 11 Intrathecal M4 started yesterday Notes reviewed He is afebrile BP okay No new issues Got his third dose of intrathecal ampho B Repeat CSF 10/20 negative Denies headache Follows commands and talks Antibiotics: IV AMpho IT Ampho Fluconazole Cefepime Past Medical History: atrial flutter systolic heart failure likely chronic ejection fraction 25%, hypertension, hyperlipidemia bladder cancer status post removal with chemoradiation therapy 2015. ablation bladder surgery 2 yrs ago Allergies/Adverse Reactions: Allergies No Known Allergies Allergy (Unknown, Uncoded 07/08/17 00:15) Objective Vital Signs 10/22/17 04:00 10/22/17 10:15 Temperature 97.9 F Pulse Rate 68 Respiratory Rate 24 Blood Pressure 128/82 Pulse Oximetry 95 96 Intake & Output 10/21/17 10/22/17 10/22/17 18:59 06:59 18:59 Intake Total 480 / 480 Output Total 1800 / 1800 Balance -1320 / -1320 Weight 95 kg Intake: Oral 480 / 480 Output: Urine 1800 / 1800 Lab - Hematology Results 10/19/17 10/21/17 06:18 11:20 WBC 7.1 9.5 RBC 3.20 L 3.50 L Hgb 9.7 L 10.6 L Hct 28.6 L 32.0 L MCV 89.4 91.6 MCH 30.2 30.3 MCHC 33.7 33.1 RDW 20.7 H 20.7 H Plt Count 55 L 56 L MPV 9.0 9.2 Neut % (Auto) 90.7 H 92.5 H Lymph % (Auto) 6.5 L 4.9 L [place] % (Auto) 2.7 2.5 Eos % (Auto) 0.0 0.0 Baso % (Auto) 0.1 0.1 Neut # (Auto) 6.5 8.8 H Lymph # (Auto) 0.5 L 0.5 L [place] # (Auto) 0.2 0.2 Eos # (Auto) 0.0 0.0 Baso # (Auto) 0.0 0.0 CBC Comment AUTO DIFF AUTO DIFF Total Counted 100 Neutrophils % (Manual) 91 H Band Neutrophils % 1 Lymphocytes % 4 L Monocytes % 2 Neutrophils # (Manual) 8.9 H Myelocytes 2 H Differential Comment AUTO DIFF CONFIRMED FINAL DIFF MANUAL Platelet Estimate LOW L LOW L Plt Morphology Comment NORMAL NORMAL Polychromasia 2.0 H Tear Drop Cells 1+ H 1+ H Ovalocytes 1+ H Lab - Chemistry Results 10/19/17 10/20/17 10/21/17 06:18 09:53 11:20 Sodium 139 140 Potassium 2.8 L* 3.3 L 3.0 L Chloride 105 109 H Carbon Dioxide 19.7 L 19.2 L Anion Gap 14 12 BUN 32 H 40 H Creatinine 0.53 L 0.67 Estimated GFR 162 124 Random Glucose 136 H 163 H Hemoglobin A1c 4.5 Calcium 8.2 L 8.4 L Phosphorus 3.3 Magnesium 2.5 Total Bilirubin 1.0 0.9 AST 31 29 ALT 73 73 Alkaline Phosphatase 79 84 Total Protein 4.9 L 5.4 L Albumin 2.5 L 2.7 L Free T4 0.87 TSH 3rd Generation 0.734 Imaging: Last Impressions Chest X-Ray 10/18/17599 Signed Impressions: CONCLUSION: Right lower lobe atelectasis or consolidation. Head CT 09/30/17599 Signed Impressions: CONCLUSION: 1. Evolving postoperative changes in the posterior fossa without any mass effe ct or new hemorrhage. CT Angiography 09/26/17 Signed Impressions: CONCLUSION: 1. Suboptimal opacification of pulmonary arteries. No filling defect is noted 2. I don't see any evidence for pulmonary embolism. Small medial infiltrates i n the lungs in the lower lobes correlate for aspiration Liver Ultrasound 09/24/17 Signed Impressions: CONCLUSION: 1. No acute abnormality demonstrated. 2. Benign appearing right upper pole renal cyst. Chest CT 09/12/17 06 Addendum Impressions: CONCLUSION: 1. There is a tiny 3 mm pulmonary nodule in the posterior right lower lung. Th ere is a tiny 3 mm pulmonary nodule in the anterior left lower lung. These find ings are nonspecific. Recommend a follow-up noncontrast CT thorax in 6 months. 2. There appears to be evidence of para-aortic adenopathy in the upper to mid abdomen. See the CT scan of the abdomen/pelvis. Abdomen/Pelvis CT 09/12/17 0600 Addendum Impressions: CONCLUSION: 1. There is moderate diffuse para-aortic and retroperitoneal adenopathy in the midabdomen characteristic for neoplastic disease. 2. Bilateral benign-appearing renal cysts. 3. Scattered diverticula along the sigmoid colon without inflammatory changes. 4. 3 mm pulmonary nodule left lower lung. 5. There are 2 small stones in the urinary bladder. Myocardial Perfusion Scan Nuc Med 09/12/17 0000 Signed Impressions: CONCLUSION: No evidence to suggest ischemic myocardial changes. Mild global hypokinesis with a cardiac ejection fraction of 40%. The left ventricle appears to be dilated. Brain MRI 09/11/17 0000 Signed Impressions: Service Date/Time: Monday, September 11, 2017 14:19 - CONCLUSION: 1. Heterogeneously enhancing, well-circumscribed 4.4 cm mass lesion in the superior aspect of the left cerebellar hemisphere paramidline. Associated vasogenic type edema. 2. With the patient's history of bladder cancer, metastatic disease is suspected although the lesion appears to be isolated and therefore, a primary brain tumor should also be considered. 3. Supratentorially, the brain is radiographically normal. Corey Tolentino MD Physical Exam: Physical Exam CONSTITUTIONAL/GENERAL: Keeps eyes closed, but he follows commands. He answers some questions this is an adequately nourished patient, in no apparent distress. SKIN: No jaundice, rashes, or lesions. Warm and dry HEAD: Ventric in place with blood-tinged CSF . R parietal incision clean EYES: Extraocular motions intact. No scleral icterus. No injection or drainage. Fundi not examined. ENT: Nose without bleeding or purulent drainage. Moist mucosa CARDIOVASCULAR: Regular rate and rhythm without murmurs, gallops, or rubs. RESPIRATORY/CHEST: Symmetric, unlabored respirations. Clear to auscultation. Breath sounds equal bilaterally. No wheezes, rales, or rhonchi. GASTROINTESTINAL: Abdomen soft, non-tender, nondistended. No guarding. Bowel sounds present. Has an umbilical hernia GENITOURINARY: Without palpable bladder distension MUSCULOSKELETAL: Extremities without clubbing, cyanosis, or edema.. No calf tenderness. No mottling or clubbing. NEUROLOGICAL: Awake, follows commands. Right hand regional driver much stronger compared to the left PSYCHIATRIC: Cooperative LINE: No evidence of infection Assessment and Plan - Plan IMPRESSION Bladder cancer, metastatic with brain mets S/P neurosurgical procedure C albicans ventriculitis Serratia, PSAE PNA Serratia bacteremia : source is likley PNA line (PICC), vs PNA vs surgical site infection sp 1 week of treatment Thrombocytopenia - stable Persistent PNA, RLL PLAN Continue Ampho B Continue Diflucan Follow CBC Follow new C/S Intrathecal AMB Will stop intrathecal injections after 3 consequitive sterile CSF cultures Exchanging of ventric if feasible Follow closely BMP, CBC q 48 hrs Continue cefepime, plan to give until October 26 Monitor progress
[2017-10-22] MEDS ORDERED: Dextrose 50% in Water 50 ML Vial IV.PUSH PRN ×2 (13:42)
[2017-10-22] MEDS: Insulin NovoLIN Regular Correctional Sugar Inj SQ SCH ×2 (13:50→19:10)
--- NOTE | 2017-10-22 15:28 | P.PN ---
Subjective Interval history: Resting in bed, no acute issue, For diet toleration Physical Exam Vital signs: Vital Signs 10/22/17 04:00 10/22/17 10:15 Temperature 97.9 F Pulse Rate 68 Respiratory Rate 24 Blood Pressure 128/82 Pulse Oximetry 95 96 Intake & Output 10/21/17 10/22/17 10/22/17 18:59 06:59 18:59 Intake Total 580 / 580 Output Total 1800 / 1800 Balance -1220 / -1220 Weight 95 kg Intake: IV 100 / 100 Maxipime Inj 2,000 MG In NS Inj 100 / 100 100 ML @ 200 mls/hr IV.SIG Q8H KATHERINE Rx#:[id number] Oral 480 / 480 Output: Urine 1800 / 1800 Narrative: GENERAL: 52 years old male in no acute distress CARDIOVASCULAR: RRR, no gallops, or rubs. RESPIRATORY: Fair air entry bilaterally. No W, R, or R GASTROINTESTINAL: Abdomen soft, non-tender, nondistended. Positive bowel sounds MUSCULOSKELETAL: Extremities without clubbing, cyanosis, or edema. Pedal pulses appreciated NEUROLOGICAL: Somnolent deeply today, but arouses to sternal rub Results - Labs CBC & Chem 7: 10/21/17 11:20 10/23/17 09:45 Laboratory Results - last 24 hr 10/19/17 10/19/17 10/20/17 06:18 06:18 09:53 WBC 7.1 RBC 3.20 L Hgb 9.7 L Hct 28.6 L MCV 89.4 MCH 30.2 MCHC 33.7 RDW 20.7 H Plt Count 55 L MPV 9.0 Neut % (Auto) 90.7 H Lymph % (Auto) 6.5 L [place] % (Auto) 2.7 Eos % (Auto) 0.0 Baso % (Auto) 0.1 Neut # (Auto) 6.5 Lymph # (Auto) 0.5 L [place] # (Auto) 0.2 Eos # (Auto) 0.0 Baso # (Auto) 0.0 CBC Comment AUTO DIFF Total Counted Neutrophils % (Manual) Band Neutrophils % Lymphocytes % Monocytes % Neutrophils # (Manual) Myelocytes Differential Comment AUTO DIFF CONFIRMED Platelet Estimate LOW L Plt Morphology Comment NORMAL Polychromasia 2.0 H Tear Drop Cells 1+ H Ovalocytes 1+ H Sodium 139 Potassium 2.8 L* 3.3 L Chloride 105 Carbon Dioxide 19.7 L Anion Gap 14 BUN 32 H Creatinine 0.53 L Estimated GFR 162 Random Glucose 136 H Hemoglobin A1c 4.5 Calcium 8.2 L Phosphorus 3.3 Magnesium 2.5 Total Bilirubin 1.0 AST 31 ALT 73 Alkaline Phosphatase 79 Total Protein 4.9 L Albumin 2.5 L Free T4 0.87 TSH 3rd Generation 0.734 CSF Volume (1) CSF Supernat Color (1) CSF Gross Blood (1) CSF WBC (1) CSF RBC (1) CSF Neutrophils CSF Lymphocytes CSF Glucose CSF Total Protein 10/20/17 10/20/17 10/21/17 12:04 12:04 11:20 WBC RBC Hgb Hct MCV MCH MCHC RDW Plt Count MPV Neut % (Auto) Lymph % (Auto) Blaine % (Auto) Eos % (Auto) Baso % (Auto) Neut # (Auto) Lymph # (Auto) Blaine # (Auto) Eos # (Auto) Baso # (Auto) CBC Comment Total Counted Neutrophils % (Manual) Band Neutrophils % Lymphocytes % Monocytes % Neutrophils # (Manual) Myelocytes Differential Comment Platelet Estimate Plt Morphology Comment Polychromasia Tear Drop Cells Ovalocytes Sodium 140 Potassium 3.0 L Chloride 109 H Carbon Dioxide 19.2 L Anion Gap 12 BUN 40 H Creatinine 0.67 Estimated GFR 124 Random Glucose 163 H Hemoglobin A1c Calcium 8.4 L Phosphorus Magnesium Total Bilirubin 0.9 AST 29 ALT 73 Alkaline Phosphatase 84 Total Protein 5.4 L Albumin 2.7 L Free T4 TSH 3rd Generation CSF Volume (1) 2.5 CSF Supernat Color (1) HEMOLYZED H CSF Gross Blood (1) 1+ H CSF WBC (1) 1684 H CSF RBC (1) 2855 H CSF Neutrophils CSF Lymphocytes 0 CSF Glucose 79 CSF Total Protein 85.7 H 10/21/17 11:20 WBC 9.5 RBC 3.50 L Hgb 10.6 L Hct 32.0 L MCV 91.6 MCH 30.3 MCHC 33.1 RDW 20.7 H Plt Count 56 L MPV 9.2 Neut % (Auto) 92.5 H Lymph % (Auto) 4.9 L Blaine % (Auto) 2.5 Eos % (Auto) 0.0 Baso % (Auto) 0.1 Neut # (Auto) 8.8 H Lymph # (Auto) 0.5 L [place]aine # (Auto) 0.2 Eos # (Auto) 0.0 Baso # (Auto) 0.0 CBC Comment AUTO DIFF Total Counted 100 Neutrophils % (Manual) 91 H Band Neutrophils % 1 Lymphocytes % 4 L Monocytes % 2 Neutrophils # (Manual) 8.9 H Myelocytes 2 H Differential Comment FINAL DIFF MANUAL Platelet Estimate LOW L Plt Morphology Comment NORMAL Polychromasia Tear Drop Cells 1+ H Ovalocytes Sodium Potassium Chloride Carbon Dioxide Anion Gap BUN Creatinine Estimated GFR Random Glucose Hemoglobin A1c Calcium Phosphorus Magnesium Total Bilirubin AST ALT Alkaline Phosphatase Total Protein Albumin Free T4 TSH 3rd Generation CSF Volume (1) CSF Supernat Color (1) CSF Gross Blood (1) CSF WBC (1) CSF RBC (1) CSF Neutrophils CSF Lymphocytes CSF Glucose CSF Total Protein Assessment and Plan - Plan this is a 52-year-old male who was admitted to [place] on September 11, 2017. His medical history significant for atrial flutter status post ablation by Dr. Stokes , systolic heart failure with an ejection fraction of 25%, hypertension, hyperlipidemia, and bladder cancer with chemo radiation in 2015. He presented to the ED after he slipped and fell. He hit his head and in the ER a CT of the head was performed. CT was significant for a mass in the left posterior fossa. MRI of brain revealed that the left cerebral mass was 4.4 cm with vasogenic edema. Dr. Horvath was consulted. He had a ventriculostomy drain placed. The tube was clamped. Patient developed significant headaches. On September 25 he had reexploration of the posterior fossa craniotomy, evacuation of cerebellar clot, duraplasty with Dura-Guard enterocele, placement of epidural drain secondary to cerebral hemorrhage. Patient later became acutely hypoxic. CT of brain showed persistent edema with midline shift. Urine culture shows gram-negative rods and the patient was started on Rocephin. By October 07 the patient was extubated. On October 10 patient had a CSF leak from previous craniotomy site. He went back to the OR. He had a bur hole placed by Dr. Horvath. He was transferred back to the ICU placed on mechanical ventilation. CSF is growing yeast. Dr. Gibbons was consulted. On October 12 he was extubated. Care was transferred to hospitalist on October 13. 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 Flutter status post ablation by Dr. Mantilla 07/09 -currently normal sinus rhythm Chronic systolic heart failure ejection fraction 25% per echocardiogram 07/09 Essential hypertension Hyperlipidemia Bilateral renal cysts 3.7 cm on the right and 2.9 cm on the left superior pole> > follow-up patient Hyperglycemia/acute Colonic diverticulosis Suspect underlying depression 10/19: Severe hypokalemia 2.8, magnesium level is acceptable, will replete per protocol continue current care with IV antibiotic per ID, Per ID plan for: Intrathecal AMB 3 x/week injectioj 10/21 , then Mon- Mon- Mon starting next week Send CSF daily untill sterility documented : both cell count/ diff and cultures Will stop intrathecal injections after 3 consecutive sterile CSF cultures fullow closely CMP, CBC q 48 hrs add cefepime x 7 days, longer if needed 10/20: Continue current care as above intrathecal AMB 3 times a week, follow CMP CBC every 48 hours, continue cefepime , CSF sent today , follow ID recommendation 10/21:No fever or chills, discussed with the nurse patient did not have bowel movement in many days almost 5 He is on Colace and once daily lactulose 30 mg however he is refusing milk of mag I will add Dulcolax suppository Dari-Colace instead of the Colace and will increase the frequency of lactulose 10/22: Continue intrathecal treatment 3 times a week next one tomorrow 10/23 with sending out CSF, amphotericin to be stopped after 3 sequence negative CSF as per ID Plan: Status post-reexploration of the posterior fossa craniectomy, evacuation of cerebellar clot, duraplasty with DuraGuard and DuraSeal, placement of epidural drain secondary to cerebellar hemorrhage. 09/24>s/p stereotactic image guided suboccipital craniectomy, C1 laminectomy, microsurgical resection of metastatic carcinoma, duraplasty - 08/23>Right frontal Walt hole with placement of a ventriculostomy catheter removed 09/22 Left 4.4 cm cerebellar brain mass with vasogenic edema s/p EVD 09/29 for base of skull CSF leak vs. seroma.s/p Walt hole with ventriculostomy placement 10/10 for CSF leak Neurosurgery/Dr. Horvath following Seizure prophylaxis with levetiracetam 500 mg po twice daily 2D echocardiogram 07/09 revealed EF 25%. Echocardiogram 09/16 - endomyocardial borders are poorly visualized Normal left ventricular size. Wall thickness is normal. The left ventricular systolic function is mildly reduced with an estimated ejection fraction in the range of 45-50%. Nuclear medicine stress test per cardiology revealed no reversible ischemia. Ejection fraction 40% Lopressor to [address] Mancera following CT thorax revealed pulmonary nodules as above. Repeat CT scan in [address] pulmonary angiogram 09/26 revealed no pulmonary embolism. Possible aspiration/ infiltrates noted. Mild pulmonary edema resolved. Outpatient sleep study Lansoprazole 30 mg by tube daily for GI prophylaxis SSI with Novolin R with Accu-Cheks Monitor urine output with accurate I's and O's Holding apixaban 5 mg p.o. twice daily with s/p brain mass resection, and EVD in place. Do not resume. Per cardiology. Patient seen by Dr. Chen during this hospitalization. Follow-up with outpatient oncology DVT Prophylaxis - per neurosurgery, lovenox 40 mg daily started 10/12 , do not resume apixaban per labels molder Discharge Planning Discharge Planning D/C pending clinical improvement No current d/c plan in place will need SNF upon dc
[2017-10-22] MEDS: Enoxaparin Inj 40 MG/0.4 ML Syringe SQ SCH (15:50)
[2017-10-22] MEDS: Potassium Chlor 20 mEq Premix 20 MEQ/100 ML PIGGYBACK IV.SIG PRN ×3 (15:52→23:17)
[2017-10-22] MEDS ORDERED: Sodium Chlor 0.9% Inj 250 ML ONE (16:36)
--- NOTE | 2017-10-22 21:15 | P.PNNS ---
Subjective Interval history: No new problems reported. Continuing intrathecal amphotericin B. Not tolerating diet well. Physical Exam Vital signs: Vital Signs 10/22/17 04:00 10/22/17 10:15 Temperature 97.9 F Pulse Rate 68 Respiratory Rate 24 Blood Pressure 128/82 Pulse Oximetry 95 96 Intake & Output 10/22/17 10/22/17 10/23/17 06:59 18:59 06:59 Intake Total 580 / 580 Output Total 1800 / 1800 Balance -1220 / -1220 Weight 95 kg Intake: IV 100 / 100 Maxipime Inj 2,000 MG In NS Inj 100 / 100 100 ML @ 200 mls/hr IV.SIG Q8H KATHERINE Rx#:[id number] Oral 480 / 480 Output: Urine 1800 / 1800 Narrative: External ventricular drain in place with moderate blood-tinged CSF output. Dressing and incision sites remain dry. No nuchal rigidity Mild to moderate lethargy. Responds to simple questions with head movement. Moves all extremities with at least moderate strength to command. Assessment and Plan - Assessment (1) Cerebral ventriculitis Code(s): G04.90 - Encephalitis and encephalomyelitis, unspecified Status: Acute - Plan Findings were discussed with the family in the room today. He may require an appetite stimulant. Continuing intrathecal amphotericin B with next dose scheduled for 10/23/2017. Plan to submit additional CSF studies per infectious disease request on 2017.
[2017-10-22] MEDS: Mirtazapine 15 MG Tablet PO SCH (21:19)
[2017-10-22] MEDS: WATER IV.SIG SCH ×2 (23:17)
[2017-10-22] MEDS: AMPHOTERICIN B LIPOSOMAL IV.SIG SCH ×2 (23:17)
[2017-10-22] MEDS: DEXTROSE 5% IV.SIG SCH ×2 (23:17)
[2017-10-23] MEDS: Insulin NovoLIN Regular Correctional Sugar Inj SQ SCH ×4 (00:29→18:50)
[2017-10-23] MEDS: Potassium Chlor 20 mEq Premix 20 MEQ/100 ML PIGGYBACK IV.SIG PRN ×3 (02:21→14:48)
--- NOTE | 2017-10-23 03:13 | XR ---
EXAM DATE: 10/23/2017 3:10 AM EDT AGE/SEX: 52 years / Male INDICATIONS: Shortness of breath. CLINICAL DATA: This is the patient's subsequent encounter. Patient reports that signs and symptoms h ave been present for 3 days and indicates a pain score of Nonresponsive. MEDICAL/SURGICAL HISTORY: Non-responsive. Non-responsive. COMPARISON: No prior exams available for comparison. FINDINGS: A single AP view of the chest demonstrates the lungs to be symmetrically aerated without evidence of mass, infiltrate or effusion. The cardiomediastinal contours are unremarkable. Osseous structures a re intact. CONCLUSION: The lungs are clear. Electronically signed by: Dae Field MD 10/23/2017 3:12 AM EDT
[2017-10-23] MEDS: Artificial Tears Opth Drops 15 ML Bottle EACH EYE SCH ×3 (05:45→21:09)
[2017-10-23] MEDS ORDERED: METHYLPREDNISOLONE SOD SUC IT SCH ×2 (07:00)
[2017-10-23] MEDS ORDERED: METHYLPREDNISOLONE SOD SUC IV.SIG SCH ×4 (07:00→09:00)
[2017-10-23] MEDS ORDERED: [UNRECOGNIZED DRUG - OTHER] IV.SIG SCH ×4 (07:00→09:00)
[2017-10-23] MEDS ORDERED: DEXTROSE 5% IM SCH ×2 (07:00→20:23)
[2017-10-23] MEDS ORDERED: [UNRECOGNIZED DRUG - OTHER] IM SCH ×2 (07:00→20:23)
[2017-10-23] MEDS ORDERED: WATER IM SCH ×2 (07:00→20:23)
[2017-10-23] MEDS ORDERED: [UNRECOGNIZED DRUG - OTHER] IT SCH ×2 (07:00)
[2017-10-23] MEDS ORDERED: WATER IV.SIG SCH ×4 (07:00→09:00)
[2017-10-23] MEDS ORDERED: DEXTROSE 5% IV.SIG SCH ×4 (07:00→09:00)
[2017-10-23] MEDS ORDERED: DEXTROSE 5% IT SCH ×2 (07:00)
[2017-10-23] MEDS ORDERED: METHYLPREDNISOLONE SOD SUC IM SCH ×2 (07:00→20:23)
[2017-10-23] MEDS: Pantoprazole Inj 40 MG Vial IV.PUSH SCH (09:57)
[2017-10-23] MEDS: Sodium Chloride 1 GM Tablet PO SCH ×3 (09:58→18:50)
[2017-10-23] MEDS: levETIRAcetam 500 MG Tablet PO SCH ×2 (09:58→20:44)
[2017-10-23] MEDS: Senna/Docusate Sodium 8.6/50 MG Tablet PO SCH ×2 (09:59→21:08)
[2017-10-23] MEDS: Metoprolol Tartrate 50 MG Tablet PO SCH ×2 (11:23→21:08)
[2017-10-23] MEDS ORDERED: Potassium Chloride 25 MEQ Effervescent Tablet PO ONE (14:00)
--- NOTE | 2017-10-23 14:09 | P.PN ---
Subjective Interval history: Resting in bed open eyes he is sleepy Discussed with the nurse no fever plan for intrathecal treatment today Physical Exam Vital signs: Vital Signs 10/22/17 16:00 10/22/17 18:00 10/22/17 20:00 Temperature 97.8 F 97.9 F Pulse Rate 68 64 62 Respiratory Rate 24 16 Blood Pressure 112/76 136/82 Pulse Oximetry 91 L 96 10/23/17 00:00 10/23/17 02:00 10/23/17 04:00 Temperature 98 F Pulse Rate 70 66 60 Respiratory Rate 16 Blood Pressure 143/84 H Pulse Oximetry 10/23/17 06:00 10/23/17 07:50 10/23/17 08:00 Temperature 97.9 F Pulse Rate 52 L 46 L Respiratory Rate 15 Blood Pressure 111/69 Pulse Oximetry 94 L 91 L 10/23/17 10:00 Temperature Pulse Rate 74 Respiratory Rate Blood Pressure Pulse Oximetry Intake & Output 10/22/17 10/23/17 10/23/17 18:59 06:59 18:59 Intake Total 1400 / 1400 2250 / 2250 Output Total 1478 / 1478 2049 / 2049 Balance -78 / -78 200 / 200 Weight 93.2 kg Intake: IV 200 / 200 400 / 400 Maxipime Inj 2,000 MG In NS Inj 100 / 100 200 / 200 100 ML @ 200 mls/hr IV.SIG Q8H KATHERINE Rx#:[id number] KCl 20 mEq Premix Inj 20 meq In 100 / 100 200 / 200 100 ml @ 50 mls/hr IV.SIG Q2H PRN Rx#:[id number] Oral 1200 / 1200 550 / 550 Other 1300 / 1300 Output: Urine 1400 / 1400 1999 / 1999 Intracranial Drainage 78 / 78 50 / 50 Right Temporoparietal 78 / 78 50 / 50 Other: Date of Last Bowel Movement 10/22/17 10/22/17 10/22/17 # Bowel Movements 3 1 Narrative: GENERAL: 52 years old male in no acute distress CARDIOVASCULAR: RRR, no gallops, or rubs. RESPIRATORY: Fair air entry bilaterally. No W, R, or R GASTROINTESTINAL: Abdomen soft, non-tender, nondistended. Positive bowel sounds MUSCULOSKELETAL: Extremities without clubbing, cyanosis, or edema. Pedal pulses appreciated NEUROLOGICAL: Somnolent , but arouses to sternal rub Results - Labs CBC & Chem 7: 06/30/18 11:20 10/23/17 09:45 Laboratory Results - last 24 hr 10/22/17 10/22/17 10/23/17 06:59 19:08 00:03 Potassium 2.8 L* POC Glucose 176 H 202 H 10/23/17 10/23/17 10/23/17 05:34 09:45 13:23 Potassium 2.8 L* POC Glucose 164 H 169 H - Imaging Impressions Chest X-Ray 10/23/17 00:00 CONCLUSION: The lungs are clear. Assessment and Plan - Plan this is a 52-year-old male who was admitted to [facility] on September 11, 2017. His medical history significant for atrial flutter status post ablation by Dr. Stokes , systolic heart failure with an ejection fraction of 25%, hypertension, hyperlipidemia, and bladder cancer with chemo radiation in 2015. He presented to the ED after he slipped and fell. He hit his head and in the ER a CT of the head was performed. CT was significant for a mass in the left posterior fossa. MRI of brain revealed that the left cerebral mass was 4.4 cm with vasogenic edema. Dr. Horvath was consulted. He had a ventriculostomy drain placed. The tube was clamped. Patient developed significant headaches. On September 25 he had reexploration of the posterior fossa craniotomy, evacuation of cerebellar clot, duraplasty with Dura-Guard enterocele, placement of epidural drain secondary to cerebral hemorrhage. Patient later became acutely hypoxic. CT of brain showed persistent edema with midline shift. Urine culture shows gram-negative rods and the patient was started on Rocephin. By October 07 the patient was extubated. On October 10 patient had a CSF leak from previous craniotomy site. He went back to the OR. He had a bur hole placed by Dr. Horvath. He was transferred back to the ICU placed on mechanical ventilation. CSF is growing yeast. Dr. Gibbons was consulted. On October 12 he was extubated. Care was transferred to hospitalist on October 13. 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 Flutter status post ablation by Dr. Mantilla 07/09 -currently normal sinus rhythm Chronic systolic heart failure ejection fraction 25% per echocardiogram 07/09 Essential hypertension Hyperlipidemia Bilateral renal cysts 3.7 cm on the right and 2.9 cm on the left superior pole> > follow-up patient Hyperglycemia/acute Colonic diverticulosis Suspect underlying depression 10/19: Severe hypokalemia 2.8, magnesium level is acceptable, will replete per protocol continue current care with IV antibiotic per ID, Per ID plan for: Intrathecal AMB 3 x/week injectioj 10/21 , then Mon- Mon- Mon starting next week Send CSF daily untill sterility documented : both cell count/ diff and cultures Will stop intrathecal injections after 3 consecutive sterile CSF cultures fullow closely CMP, CBC q 48 hrs add cefepime x 7 days, longer if needed 10/20: Continue current care as above intrathecal AMB 3 times a week, follow CMP CBC every 48 hours, continue cefepime , CSF sent today , follow ID recommendation 10/21:No fever or chills, discussed with the nurse patient did not have bowel movement in many days almost 5 He is on Colace and once daily lactulose 30 mg however he is refusing milk of mag I will add Dulcolax suppository Dari-Colace instead of the Colace and will increase the frequency of lactulose 10/22: Continue intrathecal treatment 3 times a week next one tomorrow 10/23 with sending out CSF, amphotericin to be stopped after 3 sequence negative CSF as per ID 10/23: Intrathecal treatment antibiotic today, sending CSF tomorrow, monitor in SICU Plan: Status post-reexploration of the posterior fossa craniectomy, evacuation of cerebellar clot, duraplasty with DuraGuard and DuraSeal, placement of epidural drain secondary to cerebellar hemorrhage. 09/24>s/p stereotactic image guided suboccipital craniectomy, C1 laminectomy, microsurgical resection of metastatic carcinoma, duraplasty - 08/23>Right frontal Walt hole with placement of a ventriculostomy catheter removed 09/22 Left 4.4 cm cerebellar brain mass with vasogenic edema s/p EVD 09/29 for base of skull CSF leak vs. seroma.s/p [place] hole with ventriculostomy placement 10/10 for CSF leak Neurosurgery/Dr. Horvath following Seizure prophylaxis with levetiracetam 500 mg po twice daily 2D echocardiogram 07/09 revealed EF 25%. Echocardiogram 09/16 - endomyocardial borders are poorly visualized Normal left ventricular size. Wall thickness is normal. The left ventricular systolic function is mildly reduced with an estimated ejection fraction in the range of 45-50%. Nuclear medicine stress test per cardiology revealed no reversible ischemia. Ejection fraction 40% Lopressor to [address] Mancera following CT thorax revealed pulmonary nodules as above. Repeat CT scan in [address] pulmonary angiogram 09/26 revealed no pulmonary embolism. Possible aspiration/ infiltrates noted. Mild pulmonary edema resolved. Outpatient sleep study Lansoprazole 30 mg by tube daily for GI prophylaxis SSI with Novolin R with Accu-Cheks Monitor urine output with accurate I's and O's Holding apixaban 5 mg p.o. twice daily with s/p brain mass resection, and EVD in place. Do not resume. Per cardiology. Patient seen by Dr. Chen during this hospitalization. Follow-up with outpatient oncology DVT Prophylaxis - per neurosurgery, lovenox 40 mg daily started 10/12 , do not resume apixaban per supervisor filtration Discharge Planning Discharge Planning D/C pending clinical improvement No current d/c plan in place will need SNF upon dc
--- NOTE | 2017-10-23 16:06 | P.PNNS ---
Subjective Interval history: Patient opens eyes to voice. He denies any headaches, nausea, vomiting, paresthesias. He does state that he has left-sided weakness which is improving. He has a ventriculostomy drain at 0 cm of water draining bloody CSF. Physical Exam Vital signs: Vital Signs 10/22/17 18:00 10/22/17 20:00 10/23/17 00:00 Temperature 97.9 F Pulse Rate 64 62 70 Respiratory Rate 16 Blood Pressure 136/82 Pulse Oximetry 96 10/23/17 02:00 10/23/17 04:00 10/23/17 06:00 Temperature 98 F Pulse Rate 66 60 52 L Respiratory Rate 16 Blood Pressure 143/84 H Pulse Oximetry 10/23/17 07:50 10/23/17 08:00 10/23/17 10:00 Temperature 97.9 F Pulse Rate 46 L 74 Respiratory Rate 15 Blood Pressure 111/69 Pulse Oximetry 94 L 91 L 10/23/17 12:00 Temperature Pulse Rate 64 Respiratory Rate Blood Pressure Pulse Oximetry Intake & Output 10/22/17 10/23/17 10/23/17 18:59 06:59 18:59 Intake Total 1400 / 1400 2250 / 2250 100 / 100 Output Total 1478 / 1478 2050 / 0 Balance -78 / -78 200 / 200 100 / 100 Weight 93.2 kg Intake: IV 200 / 200 400 / 400 100 / 100 Maxipime Inj 2,000 MG In NS Inj 100 / 100 200 / 200 100 ML @ 200 mls/hr IV.SIG Q8H KATHERINE Rx#:[id number] KCl 20 mEq Premix Inj 20 meq In 100 / 100 200 / 200 100 / 100 100 ml @ 50 mls/hr IV.SIG Q2H PRN Rx#:[id number] Oral 1200 / 1200 550 / 550 Other 1300 / 1300 Output: Urine 1400 / 1400 2000 / 2000 Intracranial Drainage 78 / 78 50 / 50 Right Temporoparietal 78 / 78 50 / 50 Other: Date of Last Bowel Movement 10/22/17 10/22/17 10/22/17 # Bowel Movements 3 1 - Constitutional no acute distress, obese, cooperative - Routine HEENT Exam Head: Absent: normocephalic (Patient with ventriculostomy drain in place without any signs of infection at the exit site.) Eye: Present: PERRL. Absent: conjunctival icterus - Routine Respiratory Exam Present: CTA bilaterally. Absent: respiratory distress, rhonchi, wheezes - Routine Cardiovascular Exam Present: RRR, S1, S2. Absent: murmur - Routine Abdominal Exam Present: soft. Absent: tenderness, distended, firm - Routine Extremities Exam Absent: cyanosis - Routine Skin Exam Present: intact, dry. Absent: erythema - Routine Neurological Exam Present: motor deficit (Left hemiparesis compared to the right.). Absent: alert , oriented X3, normal speech (Pt fatigued answers some questions in soft tone.) - Detailed Neurological Exam: Coma Scale Eye Opening: To sound Verbal Response: Confused Motor Response: Obey commands [place] Coma Scale Total: 13 - Routine Psychiatric Exam Present: cooperative. Absent: normal affect, normal thought process, good judgment Assessment and Plan - Assessment (1) Cerebral ventriculitis Code(s): G04.90 - Encephalitis and encephalomyelitis, unspecified Status: Acute - Plan Continuing intrathecal amphotericin B with next dose today Plan to submit additional CSF studies per infectious disease request on 2017. Continue with neuro checks. Continue with rehab efforts.
[2017-10-23] MEDS: Enoxaparin Inj 40 MG/0.4 ML Syringe SQ SCH (16:35)
[2017-10-23] MEDS: DEXTROSE 5% IT SCH ×3 (16:52)
[2017-10-23] MEDS: [UNRECOGNIZED DRUG - OTHER] IT SCH ×2 (16:52)
[2017-10-23] MEDS: [UNRECOGNIZED DRUG - OTHER] IT SCH (16:52)
[2017-10-23] MEDS: METHYLPREDNISOLONE SOD SUC IT SCH ×3 (16:52)
[2017-10-23] MEDS: WATER IT SCH ×3 (16:52)
--- NOTE | 2017-10-23 19:04 | P.PNID ---
Subjective Remarks: ID COVERAGE for Patient is a 52-year-old male, had surgery on a brain mass, and was found to have metastatic non-small cell carcinoma. Has recently been diagnosed to have Lisa ventriculitis, from a CSF October 10. Redo suboccipital craniectomy,C1 laminectomy, Duraplasty with repair of CSF leak on Oct 10, [address] CSF culture, October 10, October 16, and October 17 all with Lisa albicans Has been on amphotericin and fluconazole since October 11 Intrathecal M4 started yesterday Overnight events reviewed with RN No seizures during IT Ampho or after. Confirmed with RN pt is getting IT Ampho, IV Ampho (Abelcet) and Diflucan IV max dose in addition to Cefepime IV. He is afebrile BP okay No new issues Got intrathecal ampho B today. Repeat CSF tomorrow again from ventric. Denies headache Follows commands and talks.,smiles Antibiotics: IV AMpho IT Ampho Fluconazole Cefepime Lines: Lines ok Past Medical History: atrial flutter systolic heart failure likely chronic ejection fraction 25%, hypertension, hyperlipidemia bladder cancer status post removal with chemoradiation therapy 2016. ablation bladder surgery 2 yrs ago Allergies/Adverse Reactions: Allergies No Known Allergies Allergy (Unknown, Uncoded 07/08/17 00:15) Objective Vital Signs 10/22/17 20:00 10/23/17 00:00 10/23/17 02:00 Temperature 97.9 F Pulse Rate 62 70 66 Respiratory Rate 16 Blood Pressure 136/82 Pulse Oximetry 96 10/23/17 04:00 10/23/17 06:00 10/23/17 07:50 Temperature 98 F Pulse Rate 60 52 L Respiratory Rate 16 Blood Pressure 143/84 H Pulse Oximetry 94 L 10/23/17 08:00 10/23/17 10:00 10/23/17 12:00 Temperature 97.9 F 98.0 F Pulse Rate 46 L 74 72 Respiratory Rate 15 17 Blood Pressure 111/69 110/68 Pulse Oximetry 91 L 95 10/23/17 14:00 10/23/17 16:00 Temperature Pulse Rate 84 62 Respiratory Rate Blood Pressure Pulse Oximetry Intake & Output 10/22/17 10/23/17 10/23/17 18:59 06:59 18:59 Intake Total 1400 / 1400 2250 / 2250 100 / 100 Output Total 1478 / 1478 2049 Balance -78 / -78 200 / 200 100 / 100 Weight 93.2 kg Intake: IV 200 / 200 400 / 400 100 / 100 Maxipime Inj 2,000 MG In NS Inj 100 / 100 200 / 200 100 ML @ 200 mls/hr IV.SIG Q8H KATHERINE Rx#:[id number] KCl 20 mEq Premix Inj 20 meq In 100 / 100 200 / 200 100 / 100 100 ml @ 50 mls/hr IV.SIG Q2H PRN Rx#:[id number] Oral 1200 / 1200 550 / 550 Other 1300 / 1300 Output: Urine 1400 / 1400 1999 / 1999 Intracranial Drainage 50 / 50 Right Temporoparietal 50 / 50 Other: Date of Last Bowel Movement 10/22/17 10/22/17 10/22/17 # Bowel Movements 3 1 Lab - Hematology Results 10/19/17 10/21/17 06:18 11:20 WBC 7.1 9.5 RBC 3.20 L 3.50 L Hgb 9.7 L 10.6 L Hct 28.6 L 32.0 L MCV 89.4 91.6 MCH 30.2 30.3 MCHC 33.7 33.1 RDW 20.7 H 20.7 H Plt Count 55 L 56 L MPV 9.0 9.2 Neut % (Auto) 90.7 H 92.5 H Lymph % (Auto) 6.5 L 4.9 L Harmon % (Auto) 2.7 2.5 Eos % (Auto) 0.0 0.0 Baso % (Auto) 0.1 0.1 Neut # (Auto) 6.5 8.8 H Lymph # (Auto) 0.5 L 0.5 L Harmon # (Auto) 0.2 0.2 Eos # (Auto) 0.0 0.0 Baso # (Auto) 0.0 0.0 CBC Comment AUTO DIFF AUTO DIFF Total Counted 100 Neutrophils % (Manual) 91 H Band Neutrophils % 1 Lymphocytes % 4 L Monocytes % 2 Neutrophils # (Manual) 8.9 H Myelocytes 2 H Differential Comment AUTO DIFF CONFIRMED FINAL DIFF MANUAL Platelet Estimate LOW L LOW L Plt Morphology Comment NORMAL NORMAL Polychromasia 2.0 H Tear Drop Cells 1+ H 1+ H Ovalocytes 1+ H Lab - Chemistry Results 10/19/17 10/20/17 10/21/17 06:18 09:53 11:20 Sodium 139 140 Potassium 2.8 L* 3.3 L 3.0 L Chloride 105 109 H Carbon Dioxide 19.7 L 19.2 L Anion Gap 14 12 BUN 32 H 40 H Creatinine 0.53 L 0.67 Estimated GFR 162 124 POC Glucose Random Glucose 136 H 163 H Hemoglobin A1c 4.5 Calcium 8.2 L 8.4 L Phosphorus 3.3 Magnesium 2.5 Total Bilirubin 1.0 0.9 AST 31 29 ALT 73 73 Alkaline Phosphatase 79 84 Total Protein 4.9 L 5.4 L Albumin 2.5 L 2.7 L Free T4 0.87 TSH 3rd Generation 0.734 10/22/17 10/22/17 10/23/17 06:59 19:08 00:03 Sodium Potassium 2.8 L* Chloride Carbon Dioxide Anion Gap BUN Creatinine Estimated GFR POC Glucose 176 H 202 H Random Glucose Hemoglobin A1c Calcium Phosphorus Magnesium Total Bilirubin AST ALT Alkaline Phosphatase Total Protein Albumin Free T4 TSH 3rd Generation 10/23/17 10/23/17 10/23/17 05:34 09:45 09:45 Sodium Potassium 2.8 L* Chloride Carbon Dioxide Anion Gap BUN Creatinine Estimated GFR POC Glucose 164 H Random Glucose Hemoglobin A1c Calcium Phosphorus Magnesium 2.3 Total Bilirubin AST ALT Alkaline Phosphatase Total Protein Albumin Free T4 TSH 3rd Generation 10/23/17 10/23/17 13:23 18:44 Sodium Potassium Chloride Carbon Dioxide Anion Gap BUN Creatinine Estimated GFR POC Glucose 169 H 182 H Random Glucose Hemoglobin A1c Calcium Phosphorus Magnesium Total Bilirubin AST ALT Alkaline Phosphatase Total Protein Albumin Free T4 TSH 3rd Generation Imaging: ITS Impressions Chest X-Ray 10/23/17 00:00 CONCLUSION: The lungs are clear. Physical Exam: Physical Exam CONSTITUTIONAL/GENERAL: Keeps eyes closed, but he follows commands. He answers some questions this is an adequately nourished patient, in no apparent distress. SKIN: No jaundice, rashes, or lesions. Warm and dry HEAD: Ventric in place with blood-tinged CSF . R parietal incision clean EYES: Extraocular motions intact. No scleral icterus. No injection or drainage. Fundi not examined. ENT: Nose without bleeding or purulent drainage. Moist mucosa CARDIOVASCULAR: Regular rate and rhythm without murmurs, gallops, or rubs. RESPIRATORY/CHEST: Symmetric, unlabored respirations. Clear to auscultation. Breath sounds equal bilaterally. No wheezes, rales, or rhonchi. GASTROINTESTINAL: Abdomen soft, non-tender, nondistended. No guarding. Bowel sounds present. Has an umbilical hernia GENITOURINARY: Without palpable bladder distension MUSCULOSKELETAL: Extremities without clubbing, cyanosis, or edema.. No calf tenderness. No mottling or clubbing. NEUROLOGICAL: Awake, follows commands. Right hand finance specialist much stronger compared to the left PSYCHIATRIC: Cooperative LINE: No evidence of infection Assessment and Plan - Plan IMPRESSION Bladder cancer, metastatic with brain mets S/P neurosurgical procedure C albicans ventriculitis Serratia, PSAE PNA Serratia bacteremia : source is likley PNA line (PICC), vs PNA vs surgical site infection sp 1 week of treatment Thrombocytopenia - stable Persistent PNA, RLL PLAN Continue Ampho B Intrathecal Continue IV ampho B Continue Diflucan IV. Repeat CSF from ventric. Intrathecal AMB Will assess Ampho IT dosing based on repeat CSF studies. Exchanging of ventric if feasible. Follow closely BMP, CBC q 48 hrs DC Cefepime IV, CXR improved and no secretions. Monitor progress. zaida OROZCO
[2017-10-23] MEDS: Mirtazapine 15 MG Tablet PO SCH (20:44)
[2017-10-23 22:06] LABS: Magnesium 2.1 mg/dL (1.5-2.5)
[2017-10-23 22:11] LABS: Potassium 3.7 meq/L (3.5-5.1)
[2017-10-23] MEDS: AMPHOTERICIN B LIPOSOMAL IV.SIG SCH ×2 (22:51)
[2017-10-23] MEDS: WATER IV.SIG SCH ×2 (22:51)
[2017-10-23] MEDS: DEXTROSE 5% IV.SIG SCH ×2 (22:51)
[2017-10-24] MEDS: Insulin NovoLIN Regular Correctional Sugar Inj SQ SCH ×4 (00:23→18:48)
[2017-10-24] MEDS: Artificial Tears Opth Drops 15 ML Bottle EACH EYE SCH ×3 (05:07→22:45)
[2017-10-24] MEDS: Sodium Chloride 1 GM Tablet PO SCH ×3 (08:46→17:15)
[2017-10-24] MEDS: Metoprolol Tartrate 50 MG Tablet PO SCH ×2 (08:46→22:43)
[2017-10-24] MEDS: Senna/Docusate Sodium 8.6/50 MG Tablet PO SCH ×2 (08:46→22:43)
[2017-10-24] MEDS: levETIRAcetam 500 MG Tablet PO SCH ×2 (08:46→22:42)
[2017-10-24] MEDS: Pantoprazole Inj 40 MG Vial IV.PUSH SCH (08:47)
--- NOTE | 2017-10-24 10:52 | P.PNNS ---
Subjective Interval history: Patient asleep this morning but awakens to voice. Follows simple commands without any difficulty. Ventriculostomy catheter intact. <HatilloVasyl E - Last Filed: 10/24/17 10:35> Physical Exam Vital signs: Vital Signs 10/23/17 12:00 10/23/17 14:00 10/23/17 16:00 Temperature 98.0 F 97.8 F Pulse Rate 72 84 66 Respiratory Rate 17 18 Blood Pressure 110/68 145/86 H Pulse Oximetry 95 97 10/23/17 18:00 10/23/17 20:00 10/23/17 22:00 Temperature 98 F Pulse Rate 74 80 72 Respiratory Rate 19 Blood Pressure 132/84 Pulse Oximetry 97 10/23/17 22:44 10/24/17 00:00 10/24/17 02:00 Temperature 97.8 F Pulse Rate 73 76 Respiratory Rate 15 Blood Pressure 129/82 Pulse Oximetry 95 97 10/24/17 04:00 10/24/17 06:00 10/24/17 07:29 Temperature 97.9 F Pulse Rate 69 65 Respiratory Rate 15 Blood Pressure 124/77 Pulse Oximetry 97 96 10/24/17 08:00 Temperature 97.9 F Pulse Rate 67 Respiratory Rate 14 Blood Pressure 130/76 Pulse Oximetry 96 Intake & Output 10/23/17 10/24/17 10/24/17 18:59 06:59 18:59 Intake Total 1423.925 / 3706.010 7346 / 1120 200.925 / 200.925 Output Total 1240 / 1240 1217 / 1217 Balance 183.925 / 183.925 -97 / -97 200.925 / 200.925 Weight 95 kg Intake: IV 703.925 / 703.925 320 / 320 200.925 / 200.925 SoluMEDROL Inj 5 MG D5W Inj 3.8 3.925 / 3.925 ML Amphotericin B Conv. Inj 0. 1 MG In Bag/Syringe 1 EACH @ As Directed IT MoWeFr KATHERINE Rx#: [id number] SoluMEDROL Inj 5 MG D5W Inj 0.8 0.925 / 0.925 ML In Bag/Syringe 1 EACH @ As Directed IT MoWeFr KATHERINE Rx#: [id number] Ambisome Inj 481.5 MG In D5W 320 / 320 Inj 320 ML @ 125 mls/hr IV.SIG Q24H KATHERINE Rx#:[id number] Maxipime Inj 2,000 MG In NS Inj 100 / 100 100 ML @ 200 mls/hr IV.SIG Q8H KATHERINE Rx#:[id number] Diflucan 400 mg Premix Bag 400 400 / 400 ML @ 100 mls/hr IV.SIG Q24H KATHERINE Rx#:[id number] KCl 20 mEq Premix Inj 20 meq In 200 / 200 100 ml @ 50 mls/hr IV.SIG Q2H PRN Rx#:[id number] Oral 720 / 720 360 / 360 Other 440 / 440 Output: Urine 1225 / 1225 1200 / 1200 Intracranial Drainage Right Temporoparietal Other: # Voids 1 1 Date of Last Bowel Movement 10/22/17 10/24/17 10/24/17 # Bowel Movements 1 Narrative: GENERAL: Drowsy, awakens to voice. Flat affect. Readily interacts. No apparent distress. HEENT: Normocephalic. Intact ventriculostomy catheter w/o any evident drainage, erythema or streaking noted, dressing intact. PERRLA 3 mm, EOMI. MMM & pink, tongue midline to protrusion. MUSCULOSKELETAL: BRYANT to command. Seen moving LUE spontaneously. No evident clubbing or deformity. NEUROLOGICAL: Drowsy, opens eyes to voice. Voice soft. Follows simple commands. CN II through XII appear grossly intact. Moves all extremities to commands. Ventriculostomy at 0 cm H2O, clear yellow CSF drainage in collection chamber. <Vasyl Long E - Last Filed: 10/24/17 10:35> Vital signs: Vital Signs 10/23/17 20:00 10/23/17 22:00 10/23/17 22:44 Temperature 98 F Pulse Rate 80 72 Respiratory Rate 19 Blood Pressure 132/84 Pulse Oximetry 97 95 10/24/17 00:00 10/24/17 02:00 10/24/17 04:00 Temperature 97.8 F 97.9 F Pulse Rate 73 76 69 Respiratory Rate 15 15 Blood Pressure 129/82 124/77 Pulse Oximetry 97 97 10/24/17 06:00 10/24/17 07:29 10/24/17 08:00 Temperature 97.9 F Pulse Rate 65 67 Respiratory Rate 14 Blood Pressure 130/76 Pulse Oximetry 96 96 10/24/17 12:00 10/24/17 16:00 Temperature 97.8 F 98.2 F Pulse Rate 56 L 74 Respiratory Rate 56 H 20 Blood Pressure 124/78 135/86 Pulse Oximetry 96 96 Intake & Output 10/24/17 10/24/17 10/25/17 06:59 18:59 06:59 Intake Total 1120 / 1120 1150.925 / 1150.925 Output Total 1217 / 1217 1085 / 1085 Balance -97 / -97 65.925 / 65.925 Weight 95 kg Intake: IV 320 / 320 600.925 / 600.925 SoluMEDROL Inj 5 MG D5W Inj 0.8 0.925 / 0.925 ML In Bag/Syringe 1 EACH @ As Directed IT MoWeFr KATHERINE Rx#: [id number] Ambisome Inj 481.5 MG In D5W 320 / 320 Inj 320 ML @ 125 mls/hr IV.SIG Q24H KATHERINE Rx#:[id number] Diflucan 400 mg Premix Bag 400 400 / 400 ML @ 100 mls/hr IV.SIG Q24H KATHERINE Rx#:[id number] Oral 360 / 360 550 / 550 Other 440 / 440 Output: Urine 1200 / 1200 1050 / 1050 Intracranial Drainage 35 / 35 Right Temporoparietal 35 35 Other: # Voids 1 Date of Last Bowel Movement 10/24/17 10/24/17 # Bowel Movements 1 <Caesar Sommers - Last Filed: 10/24/17 19:58> Assessment and Plan - Assessment (1) Cerebral ventriculitis Code(s): G04.90 - Encephalitis and encephalomyelitis, unspecified Status: Acute - Plan Continuing intrathecal amphotericin B on Saturdays, Mondays & Wednesdays. CSF studies per Infectious Disease on Sundays, Tuesdays & . Continue with neuro checks. Continue with rehab efforts. <Vasyl Long - Last Filed: 10/24/17 10:35> - Assessment (1) Cerebral ventriculitis Code(s): G04.90 - Encephalitis and encephalomyelitis, unspecified Status: Acute - Attending Attestation The exam, history, and the medical decision-making described in the above note were completed with the assistance of the mid-level provider. I reviewed and agree with the findings presented. I attest that I had a [id number] encounter with the patient on the same day, and personally performed and documented my assessment and findings in the medical record. The patient remains awake and reasonably responsive today, following some commands. Vital signs are stable Continuing intraventricular amphotericin B per infectious disease recommendations. <Caesar Sommers - Last Filed: 10/24/17 19:58>
--- NOTE | 2017-10-24 16:58 | P.PNIM ---
Subjective Interval history: Patient more awake and alert today CSF has been sent for checking Physical Exam Vital signs: Vital Signs 10/23/17 18:00 10/23/17 20:00 10/23/17 22:00 Temperature 98 F Pulse Rate 74 80 72 Respiratory Rate 19 Blood Pressure 132/84 Pulse Oximetry 97 10/23/17 22:44 10/24/17 00:00 10/24/17 02:00 Temperature 97.8 F Pulse Rate 73 76 Respiratory Rate 15 Blood Pressure 129/82 Pulse Oximetry 95 97 10/24/17 04:00 10/24/17 06:00 10/24/17 07:29 Temperature 97.9 F Pulse Rate 69 65 Respiratory Rate 15 Blood Pressure 124/77 Pulse Oximetry 97 96 10/24/17 08:00 10/24/17 12:00 Temperature 97.9 F 97.8 F Pulse Rate 67 56 L Respiratory Rate 14 56 H Blood Pressure 130/76 124/78 Pulse Oximetry 96 96 Intake & Output 10/23/17 10/24/17 10/24/17 18:59 06:59 18:59 Intake Total 1423.925 / 5546.807 5890 / 1120 200.925 / 200.925 Output Total 1240 / 1240 1217 / 1217 Balance 183.925 / 183.925 -97 / -97 200.925 / 200.925 Weight 95 kg Intake: IV 703.925 / 703.925 320 / 320 200.925 / 200.925 SoluMEDROL Inj 5 MG D5W Inj 3.8 3.925 / 3.925 ML Amphotericin B Conv. Inj 0. 1 MG In Bag/Syringe 1 EACH @ As Directed IT MoWeFr KATHERINE Rx#: [id number] SoluMEDROL Inj 5 MG D5W Inj 0.8 0.925 / 0.925 ML In Bag/Syringe 1 EACH @ As Directed IT MoWeFr KATHERINE Rx#: [id number] Ambisome Inj 481.5 MG In D5W 320 / 320 Inj 320 ML @ 125 mls/hr IV.SIG Q24H KATHERINE Rx#:[id number] Maxipime Inj 2,000 MG In NS Inj 100 / 100 100 ML @ 200 mls/hr IV.SIG Q8H KATHERINE Rx#:[id number] Diflucan 400 mg Premix Bag 400 400 / 400 ML @ 100 mls/hr IV.SIG Q24H KATHERINE Rx#:[id number] KCl 20 mEq Premix Inj 20 meq In 200 / 200 100 ml @ 50 mls/hr IV.SIG Q2H PRN Rx#:[id number] Oral 720 / 720 360 / 360 Other 440 / 440 Output: Urine 1225 / 1225 1200 / 1200 Intracranial Drainage Right Temporoparietal Other: # Voids 1 1 Date of Last Bowel Movement 10/22/17 10/24/17 10/24/17 # Bowel Movements 1 Narrative: GENERAL: Awake in bed when seen. Flat affect. Readily interacts. No apparent distress. HEENT: Normocephalic. Intact ventriculostomy catheter w/o any evident drainage, erythema or streaking noted, dressing intact. Dry & intact dressing to occipital scalp. PERRLA 3 mm, EOMI. MMM & pink, tongue midline to protrusion. MUSCULOSKELETAL: BRYANT to command. No evident clubbing or deformity. NEUROLOGICAL: Awake & fairly alert. Oriented to person, place & time. Voice soft. Follows simple commands. CN II through XII appear grossly intact. Moves all extremities to commands. Ventriculostomy at 0 cm H2O, bloody CSF drainage w/lori-coloured on top in collection chamber. Results - Labs CBC & Chem 7: 10/26/17 05:34 10/26/17 13:39 Laboratory Results - last 24 hr 10/23/17 10/23/17 10/23/17 09:45 18:44 20:42 Potassium 3.7 D POC Glucose 182 H Magnesium 2.3 2.1 10/24/17 10/24/17 00:18 06:28 Potassium POC Glucose 200 H 188 H Magnesium Microbiology 10/24/17 12:46 Shunt Fluid Gram Stain - Final Assessment and Plan - Plan this is a 52-year-old male who was admitted to [facility] on September 11, 2017. His medical history significant for atrial flutter status post ablation by Dr. Stokes , systolic heart failure with an ejection fraction of 25%, hypertension, hyperlipidemia, and bladder cancer with chemo radiation in 2016. He presented to the ED after he slipped and fell. He hit his head and in the ER a CT of the head was performed. CT was significant for a mass in the left posterior fossa. MRI of brain revealed that the left cerebral mass was 4.4 cm with vasogenic edema. Dr. Horvath was consulted. He had a ventriculostomy drain placed. The tube was clamped. Patient developed significant headaches. On September 25 he had reexploration of the posterior fossa craniotomy, evacuation of cerebellar clot, duraplasty with Dura-Guard enterocele, placement of epidural drain secondary to cerebral hemorrhage. Patient later became acutely hypoxic. CT of brain showed persistent edema with midline shift. Urine culture shows gram-negative rods and the patient was started on Rocephin. By October 07 the patient was extubated. On October 10 patient had a CSF leak from previous craniotomy site. He went back to the OR. He had a bur hole placed by Dr. Horvath. He was transferred back to the ICU placed on mechanical ventilation. CSF is growing yeast. Dr. Gibbons was consulted. On October 12 he was extubated. Care was transferred to hospitalist on October 13. 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 Flutter status post ablation by Dr. Mantilla 07/09 -currently normal sinus rhythm Chronic systolic heart failure ejection fraction 25% per echocardiogram 07/09 Essential hypertension Hyperlipidemia Bilateral renal cysts 3.7 cm on the right and 2.9 cm on the left superior pole> > follow-up patient Hyperglycemia/acute Colonic diverticulosis Suspect underlying depression 10/19: Severe hypokalemia 2.8, magnesium level is acceptable, will replete per protocol continue current care with IV antibiotic per ID, Per ID plan for: Intrathecal AMB 3 x/week injectioj 10/21 , then Mon- Mon- Mon starting next week Send CSF daily untill sterility documented : both cell count/ diff and cultures Will stop intrathecal injections after 3 consecutive sterile CSF cultures fullow closely CMP, CBC q 48 hrs add cefepime x 7 days, longer if needed 10/20: Continue current care as above intrathecal AMB 3 times a week, follow CMP CBC every 48 hours, continue cefepime , CSF sent today , follow ID recommendation 10/21:No fever or chills, discussed with the nurse patient did not have bowel movement in many days almost 5 He is on Colace and once daily lactulose 30 mg however he is refusing milk of mag I will add Dulcolax suppository Dari-Colace instead of the Colace and will increase the frequency of lactulose 10/22: Continue intrathecal treatment 3 times a week next one tomorrow 10/23 with sending out CSF, amphotericin to be stopped after 3 sequence negative CSF as per ID 10/24: CSF has been sent today, patient more awake and alert, continue PT and neuro check, neurosurgery following Plan: Status post-reexploration of the posterior fossa craniectomy, evacuation of cerebellar clot, duraplasty with DuraGuard and DuraSeal, placement of epidural drain secondary to cerebellar hemorrhage. 09/24>s/p stereotactic image guided suboccipital craniectomy, C1 laminectomy, microsurgical resection of metastatic carcinoma, duraplasty - 08/23>Right frontal Gypsum hole with placement of a ventriculostomy catheter removed 09/22 Left 4.4 cm cerebellar brain mass with vasogenic edema s/p EVD 09/29 for base of skull CSF leak vs. seroma.s/p Gypsum hole with ventriculostomy placement 10/10 for CSF leak Neurosurgery/Dr. Horvath following Seizure prophylaxis with levetiracetam 500 mg po twice daily 2D echocardiogram 07/09 revealed EF 25%. Echocardiogram 09/16 - endomyocardial borders are poorly visualized Normal left ventricular size. Wall thickness is normal. The left ventricular systolic function is mildly reduced with an estimated ejection fraction in the range of 45-50%. Nuclear medicine stress test per cardiology revealed no reversible ischemia. Ejection fraction 40% Lopressor to [address] Mancera following CT thorax revealed pulmonary nodules as above. Repeat CT scan in [address] pulmonary angiogram 09/26 revealed no pulmonary embolism. Possible aspiration/ infiltrates noted. Mild pulmonary edema resolved. Outpatient sleep study Lansoprazole 30 mg by tube daily for GI prophylaxis SSI with Novolin R with Accu-Cheks Monitor urine output with accurate I's and O's Holding apixaban 5 mg p.o. twice daily with s/p brain mass resection, and EVD in place. Do not resume. Per cardiology. Patient seen by Dr. Chen during this hospitalization. Follow-up with outpatient oncology DVT Prophylaxis - per neurosurgery, lovenox 40 mg daily started 10/12 , do not resume apixaban per pattern developer Discharge Planning Discharge Planning D/C pending clinical improvement No current d/c plan in place will need SNF upon dc
[2017-10-24] MEDS: Enoxaparin Inj 40 MG/0.4 ML Syringe SQ SCH (17:15)
[2017-10-24] MEDS: Mirtazapine 15 MG Tablet PO SCH (22:44)
[2017-10-24] MEDS: WATER IV.SIG SCH ×2 (22:46)
[2017-10-24] MEDS: AMPHOTERICIN B LIPOSOMAL IV.SIG SCH ×2 (22:46)
[2017-10-24] MEDS: DEXTROSE 5% IV.SIG SCH ×2 (22:46)
[2017-10-25 00:47] LABS: Anion Gap 18 meq/L (5-15); Blood Urea Nitrogen 44 mg/dL (7-18); Calcium 8.6 mg/dL (8.5-10.1); Carbon Dioxide 16.1 meq/L (21.0-32.0); Chloride 109 meq/L (98-107); Glomerular Filtration Rate Greater Than 89 mL/min (>89); Glucose,Random 197 mg/dL (74-106); Sodium 143 meq/L (136-145)
[2017-10-25 00:49] LABS: Potassium 2.5 meq/L (3.5-5.1)
[2017-10-25] MEDS: Insulin NovoLIN Regular Correctional Sugar Inj SQ SCH ×4 (01:06→18:32)
[2017-10-25 03:52] LABS: Hemoglobin 9.4 gm/dL (13.0-17.0); Mean Corpuscular HGB Conc 33.6 % (32.0-36.0); Mean Corpuscular Hemoglobin 30.2 pg (27.0-34.0); Mean Corpuscular Volume 89.8 fL (80.0-100.0); Mean Platelet Volume 8.9 fL (7.0-11.0); Platelet Count 49 th/mm3 (150-450); Red Blood Count 3.12 mil/mm3 (4.50-5.90); Red Cell Distribution Width 21.1 % (11.6-17.2); White Blood Count 9.1 th/mm3 (4.0-11.0)
[2017-10-25] MEDS: Potassium Chlor 20 mEq Premix 20 MEQ/100 ML PIGGYBACK IV.SIG SCH ×2 (04:50→10:57)
[2017-10-25] MEDS: Artificial Tears Opth Drops 15 ML Bottle EACH EYE SCH ×3 (06:39→21:42)
--- NOTE | 2017-10-25 09:21 | P.PNNS ---
Subjective Interval history: 10/25/17: Pt awakens to voice. Verbalizes he wants to go home. Denies headaches , nausea or vomiting. Ventriculostomy in place with gold tinged CSF drainage. Physical Exam Vital signs: Vital Signs 10/24/17 12:00 10/24/17 16:00 10/24/17 20:00 Temperature 97.8 F 98.2 F 97.8 F Pulse Rate 56 L 74 57 L Respiratory Rate 56 H 20 17 Blood Pressure 124/78 135/86 108/64 Pulse Oximetry 96 96 100 10/24/17 21:19 10/24/17 22:00 10/25/17 00:00 Temperature 98.6 F Pulse Rate 57 L 57 L Respiratory Rate 15 Blood Pressure 126/75 Pulse Oximetry 99 100 10/25/17 02:00 10/25/17 04:00 10/25/17 06:00 Temperature 98.7 F Pulse Rate 55 L 58 L 58 L Respiratory Rate 15 Blood Pressure Pulse Oximetry Intake & Output 10/24/17 10/25/17 10/25/17 18:59 06:59 18:59 Intake Total 1150.925 / 1150.925 550 / 550 Output Total 1085 / 1085 1235 / 1235 Balance 65.925 / 65.925 -685 / -685 Weight 93.5 kg Intake: IV 600.925 / 600.925 SoluMEDROL Inj 5 MG D5W Inj 0.8 0.925 / 0.925 ML In Bag/Syringe 1 EACH @ As Directed IT MoWeFr KATHERINE Rx#: [id number] Diflucan 400 mg Premix Bag 400 400 / 400 ML @ 100 mls/hr IV.SIG Q24H KATHERINE Rx#:[id number] Oral 550 / 550 550 / 550 Output: Urine 1050 / 1050 1200 / 1200 Stool 0 / 0 Intracranial Drainage 35 / 35 35 / 35 Right Temporoparietal 35 / 35 35 / 35 Other: # Voids 1 Date of Last Bowel Movement 10/24/17 10/24/17 # Bowel Movements 1 - Constitutional no acute distress, obese, cooperative, somnolent - Routine HEENT Exam Head: Absent: normocephalic (Right ventriculostomy drain in place without signs of infection at exit site.) Eye: Present: PERRL. Absent: conjunctival icterus - Routine Neck Exam Present: trachea midline, tracheal deviation - Routine Respiratory Exam Present: CTA bilaterally. Absent: respiratory distress, rhonchi, wheezes - Routine Cardiovascular Exam Present: RRR, S1, S2. Absent: murmur - Routine Abdominal Exam Present: soft, normoactive bowel sounds. Absent: tenderness - Routine Skin Exam Present: intact (SCDs in place.), dry. Absent: cyanosis, erythema - Routine Neurological Exam Present: alert, oriented X3, sensory deficit, motor deficit (Left hemiparesis.) , moving all extremities (Left hemiparesis.), normal speech. Absent: altered mental status - Detailed Neurological Exam: Coma Scale Eye Opening: Spontaneous Verbal Response: Oriented Motor Response: Obey commands Ra Coma Scale Total: 15 - Routine Psychiatric Exam Present: normal affect, normal thought process, cooperative, depressed (Seems somewhat states he has been here for 2 months, and wants to go home.). Absent: agitated Assessment and Plan - Assessment (1) Cerebral ventriculitis Code(s): G04.90 - Encephalitis and encephalomyelitis, unspecified Status: Acute - Plan Continuing intrathecal amphotericin B on Saturdays, Mondays & Wednesdays. CSF studies per Infectious Disease on Sundays, Tuesdays & . Continue with neuro checks. Continue with rehab efforts.
[2017-10-25] MEDS: Senna/Docusate Sodium 8.6/50 MG Tablet PO SCH ×2 (10:24→20:50)
[2017-10-25] MEDS: levETIRAcetam 500 MG Tablet PO SCH ×2 (10:24→20:49)
[2017-10-25] MEDS: Metoprolol Tartrate 50 MG Tablet PO SCH ×2 (10:24→20:49)
[2017-10-25] MEDS: Sodium Chloride 1 GM Tablet PO SCH ×3 (10:27→18:34)
[2017-10-25] MEDS: Pantoprazole Inj 40 MG Vial IV.PUSH SCH (10:29)
[2017-10-25] MEDS ORDERED: Potassium Chlor 20 mEq Premix 20 MEQ/100 ML PIGGYBACK IV.SIG SCH (11:00)
--- NOTE | 2017-10-25 14:50 | P.PNID ---
Subjective Remarks: ID COVERAGE for Patient is a 52-year-old male, had surgery on a brain mass, and was found to have metastatic non-small cell carcinoma. Has recently been diagnosed to have Lisa ventriculitis, from a CSF October 10. Redo suboccipital craniectomy,C1 laminectomy, Duraplasty with repair of CSF leak on Oct 10, [address] CSF culture, October 10, October 16, and October 17 all with Lisa albicans Has been on amphotericin and fluconazole since October 11 Intrathecal M4 started yesterday Overnight events reviewed with RN No seizures during IT Ampho or after. He is afebrile BP okay No new issues Got intrathecal ampho B yday. No CSF studies since 10/20 asked RN to remind Neurosurgery. Denies headache. Follows commands and talks.,smiles Antibiotics: IV AMpho IT Ampho Fluconazole Cefepime Lines: Lines ok Past Medical History: atrial flutter systolic heart failure likely chronic ejection fraction 25%, hypertension, hyperlipidemia bladder cancer status post removal with chemoradiation therapy 2015. ablation bladder surgery 2 yrs ago Allergies/Adverse Reactions: Allergies No Known Allergies Allergy (Unknown, Uncoded 07/08/17 00:15) Objective Vital Signs 10/24/17 16:00 10/24/17 20:00 10/24/17 21:19 Temperature 98.2 F 97.8 F Pulse Rate 74 57 L Respiratory Rate 20 17 Blood Pressure 135/86 108/64 Pulse Oximetry 96 100 99 10/24/17 22:00 10/25/17 00:00 10/25/17 02:00 Temperature 98.6 F Pulse Rate 57 L 57 L 55 L Respiratory Rate 15 Blood Pressure 126/75 Pulse Oximetry 100 10/25/17 04:00 10/25/17 06:00 Temperature 98.7 F Pulse Rate 58 L 58 L Respiratory Rate 15 Blood Pressure Pulse Oximetry Intake & Output 10/24/17 10/25/17 10/25/17 18:59 06:59 18:59 Intake Total 1150.925 / 1150.925 550 / 550 200 / 200 Output Total 1085 / 1085 1235 / 1235 Balance 65.925 / 65.925 -685 / -685 200 / 200 Weight 93.5 kg Intake: IV 600.925 / 600.925 200 / 200 SoluMEDROL Inj 5 MG D5W Inj 0.8 0.925 / 0.925 ML In Bag/Syringe 1 EACH @ As Directed IT MoWeFr KATHERINE Rx#: [id number] Diflucan 400 mg Premix Bag 400 400 / 400 ML @ 100 mls/hr IV.SIG Q24H KATHERINE Rx#:[id number] KCl 20 mEq Premix Inj 20 meq In 200 / 200 100 ml @ 50 mls/hr IV.SIG Q2H KATHERINE Rx#:[id number] Oral 550 / 550 550 / 550 Output: Urine 1050 / 1050 1200 / 1200 Stool 0 / 0 Intracranial Drainage 35 35 35 / 35 Right Temporoparietal 35 35 35 35 Other: # Voids 1 Date of Last Bowel Movement 10/24/17 10/24/17 # Bowel Movements 1 10/24/17 12:46 Shunt Fluid Gram Stain - Final 10/24/17 12:46 Shunt Fluid CSF Culture - Preliminary No growth in 24 hours Lab - Hematology Results 10/25/17 03:40 WBC 9.1 RBC 3.12 L Hgb 9.4 L Hct 28.0 L MCV 89.8 MCH 30.2 MCHC 33.6 RDW 21.1 H Plt Count 49 L MPV 8.9 Lab - Chemistry Results 10/23/17 10/23/17 10/23/17 09:45 18:44 20:42 Sodium Potassium 3.7 D Chloride Carbon Dioxide Anion Gap BUN Creatinine Estimated GFR POC Glucose 182 H Random Glucose Calcium Magnesium 2.3 2.1 10/24/17 10/24/17 10/25/17 00:18 06:28 00:02 Sodium 143 Potassium 2.5 L* D Chloride 109 H Carbon Dioxide 16.1 L Anion Gap 18 H BUN 44 H Creatinine 0.73 Estimated GFR Greater than 89 POC Glucose 200 H 188 H Random Glucose 197 H Calcium 8.6 Magnesium 10/25/17 10/25/17 00:30 06:20 Sodium Potassium Chloride Carbon Dioxide Anion Gap BUN Creatinine Estimated GFR POC Glucose 187 H 150 H Random Glucose Calcium Magnesium Imaging: ITS Impressions Chest X-Ray 10/23/17 00:00 CONCLUSION: The lungs are clear. Physical Exam: Physical Exam CONSTITUTIONAL/GENERAL: Keeps eyes closed, but he follows commands. He answers some questions this is an adequately nourished patient, in no apparent distress. SKIN: No jaundice, rashes, or lesions. Warm and dry HEAD: Ventric in place with blood-tinged CSF . R parietal incision clean EYES: Extraocular motions intact. No scleral icterus. No injection or drainage. Fundi not examined. ENT: Nose without bleeding or purulent drainage. Moist mucosa CARDIOVASCULAR: Regular rate and rhythm without murmurs, gallops, or rubs. RESPIRATORY/CHEST: Symmetric, unlabored respirations. Clear to auscultation. Breath sounds equal bilaterally. No wheezes, rales, or rhonchi. GASTROINTESTINAL: Abdomen soft, non-tender, nondistended. No guarding. Bowel sounds present. Has an umbilical hernia GENITOURINARY: Without palpable bladder distension MUSCULOSKELETAL: Extremities without clubbing, cyanosis, or edema.. No calf tenderness. No mottling or clubbing. NEUROLOGICAL: Awake, follows commands. Right hand carrier associate much stronger compared to the left PSYCHIATRIC: Cooperative LINE: No evidence of infection Assessment and Plan - Plan IMPRESSION Bladder cancer, metastatic with brain mets S/P neurosurgical procedure C albicans ventriculitis Serratia, PSAE PNA Serratia bacteremia : source is likley PNA line (PICC), vs PNA vs surgical site infection sp 1 week of treatment Thrombocytopenia - stable Persistent PNA, RLL PLAN Continue Ampho B Intrathecal to be administered with Solumedrol by neurosurgery team Continue IV ampho B Continue Diflucan IV. Repeat CSF from ventric. zaida Valverde he will collect fluid for studies now before giving Intrathecal dose today. Orders for CSF studies entered. Will assess Ampho IT dosing based on repeat CSF studies. Monitor progress. zaida OROZCO
[2017-10-25] MEDS: [UNRECOGNIZED DRUG - OTHER] IT SCH (16:39)
[2017-10-25] MEDS: WATER IT SCH ×3 (16:39→16:40)
[2017-10-25] MEDS: METHYLPREDNISOLONE SOD SUC IT SCH ×3 (16:39→16:40)
[2017-10-25] MEDS: DEXTROSE 5% IT SCH ×3 (16:39→16:40)
[2017-10-25] MEDS: [UNRECOGNIZED DRUG - OTHER] IT SCH ×2 (16:40)
[2017-10-25 16:55] LABS: Total Protein,CSF 153.8 mg/dL (15.0-45.0)
[2017-10-25 17:13] LABS: Lymphocytes, CSF 4 %; Monocytes,CSF 2 %; Neutrophils,CSF 94 %
--- NOTE | 2017-10-25 17:15 | P.PNIM ---
Subjective Interval history: Patient sleeping open eyes to voice Not very talkative looks fatigued I discussed with the nurse CSF has not been sent yesterday and will be sent today Physical Exam Vital signs: Vital Signs 10/24/17 20:00 10/24/17 21:19 10/24/17 22:00 Temperature 97.8 F Pulse Rate 57 L 57 L Respiratory Rate 17 Blood Pressure 108/64 Pulse Oximetry 100 99 10/25/17 00:00 10/25/17 02:00 10/25/17 04:00 Temperature 98.6 F 98.7 F Pulse Rate 57 L 55 L 58 L Respiratory Rate 15 15 Blood Pressure 126/75 Pulse Oximetry 100 10/25/17 06:00 Temperature Pulse Rate 58 L Respiratory Rate Blood Pressure Pulse Oximetry Intake & Output 10/24/17 10/25/17 10/25/17 18:59 06:59 18:59 Intake Total 1150.925 / 1150.925 550 / 550 200 / 200 Output Total 1085 / 1085 1235 / 1235 Balance 65.925 / 65.925 -685 / -685 200 / 200 Weight 93.5 kg Intake: IV 600.925 / 600.925 200 / 200 SoluMEDROL Inj 5 MG D5W Inj 0.8 0.925 / 0.925 ML In Bag/Syringe 1 EACH @ As Directed IT MoWeFr KATHERINE Rx#: [id number] Diflucan 400 mg Premix Bag 400 400 / 400 ML @ 100 mls/hr IV.SIG Q24H KATHERINE Rx#:[id number] KCl 20 mEq Premix Inj 20 meq In 200 / 200 100 ml @ 50 mls/hr IV.SIG Q2H KATHERINE Rx#:[id number] Oral 550 / 550 550 / 550 Output: Urine 1050 / 1050 1200 / 1200 Stool 0 / 0 Intracranial Drainage 35 / 35 35 / 35 Right Temporoparietal 35 / 35 35 / 35 Other: # Voids 1 Date of Last Bowel Movement 10/24/17 10/24/17 # Bowel Movements 1 Narrative: GENERAL: 52 years old male in no acute distress CARDIOVASCULAR: RRR, no gallops, or rubs. RESPIRATORY: Fair air entry bilaterally. No W, R, or R GASTROINTESTINAL: Abdomen soft, non-tender, nondistended. Positive bowel sounds MUSCULOSKELETAL: Extremities without clubbing, cyanosis, or edema. Pedal pulses appreciated NEUROLOGICAL: Somnolent , but arouses to sternal rub Results - Labs CBC & Chem 7: 10/25/17 03:40 10/25/17 00:02 Laboratory Results - last 24 hr 10/25/17 10/25/17 10/25/17 00:02 00:30 03:40 WBC 9.1 RBC 3.12 L Hgb 9.4 L Hct 28.0 L MCV 89.8 MCH 30.2 MCHC 33.6 RDW 21.1 H Plt Count 49 L MPV 8.9 Sodium 143 Potassium 2.5 L* D Chloride 109 H Carbon Dioxide 16.1 L Anion Gap 18 H BUN 44 H Creatinine 0.73 Estimated GFR Greater than 89 POC Glucose 187 H Random Glucose 197 H Calcium 8.6 CSF Glucose CSF Total Protein 10/25/17 10/25/17 06:20 Unknown WBC RBC Hgb Hct MCV MCH MCHC RDW Plt Count MPV Sodium Potassium Chloride Carbon Dioxide Anion Gap BUN Creatinine Estimated GFR POC Glucose 150 H Random Glucose Calcium CSF Glucose 81 H CSF Total Protein 153.8 H Microbiology 10/25/17 Unknown Shunt Fluid Gram Stain - Final 10/24/17 12:46 Shunt Fluid Gram Stain - Final 10/24/17 12:46 Shunt Fluid CSF Culture - Preliminary No growth in 24 hours Assessment and Plan - Plan this is a 52-year-old male who was admitted to [facility] on September 11, 2017. His medical history significant for atrial flutter status post ablation by Dr. Stokes , systolic heart failure with an ejection fraction of 25%, hypertension, hyperlipidemia, and bladder cancer with chemo radiation in 2016. He presented to the ED after he slipped and fell. He hit his head and in the ER a CT of the head was performed. CT was significant for a mass in the left posterior fossa. MRI of brain revealed that the left cerebral mass was 4.4 cm with vasogenic edema. Dr. Horvath was consulted. He had a ventriculostomy drain placed. The tube was clamped. Patient developed significant headaches. On September 25 he had reexploration of the posterior fossa craniotomy, evacuation of cerebellar clot, duraplasty with Dura-Guard enterocele, placement of epidural drain secondary to cerebral hemorrhage. Patient later became acutely hypoxic. CT of brain showed persistent edema with midline shift. Urine culture shows gram-negative rods and the patient was started on Rocephin. By October 07 the patient was extubated. On October 10 patient had a CSF leak from previous craniotomy site. He went back to the OR. He had a bur hole placed by Dr. Horvath. He was transferred back to the ICU placed on mechanical ventilation. CSF is growing yeast. Dr. Gibbons was consulted. On October 12 he was extubated. Care was transferred to hospitalist on October 13. 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 Flutter status post ablation by Dr. Mantilla 07/09 -currently normal sinus rhythm Chronic systolic heart failure ejection fraction 25% per echocardiogram 07/09 Essential hypertension Hyperlipidemia Bilateral renal cysts 3.7 cm on the right and 2.9 cm on the left superior pole> > follow-up patient Hyperglycemia/acute Colonic diverticulosis Suspect underlying depression Daily progress: 10/19: Severe hypokalemia 2.8, magnesium level is acceptable, will replete per protocol continue current care with IV antibiotic per ID, Per ID plan for: Intrathecal AMB 3 x/week injectioj 10/21 , then Mon- Mon- Mon starting next week Send CSF daily untill sterility documented : both cell count/ diff and cultures Will stop intrathecal injections after 3 consecutive sterile CSF cultures fullow closely CMP, CBC q 48 hrs add cefepime x 7 days, longer if needed 10/20: Continue current care as above intrathecal AMB 3 times a week, follow CMP CBC every 48 hours, continue cefepime , CSF sent today , follow ID recommendation 10/21:No fever or chills, discussed with the nurse patient did not have bowel movement in many days almost 5 He is on Colace and once daily lactulose 30 mg however he is refusing milk of mag I will add Dulcolax suppository Dari-Colace instead of the Colace and will increase the frequency of lactulose 10/22: Continue intrathecal treatment 3 times a week next one tomorrow 10/23 with sending out CSF, amphotericin to be stopped after 3 sequence negative CSF as per ID 10/24: CSF plan to be sent today, patient more awake and alert, continue PT and neuro check, neurosurgery following 10/25: CSF has not been sent yesterday will be sent today, before new intrathecal treatment, ID and neurosurgery following, monitor neuro check General plan: Status post-reexploration of the posterior fossa craniectomy, evacuation of cerebellar clot, duraplasty with DuraGuard and DuraSeal, placement of epidural drain secondary to cerebellar hemorrhage. 09/24>s/p stereotactic image guided suboccipital craniectomy, C1 laminectomy, microsurgical resection of metastatic carcinoma, duraplasty - 08/23>Right frontal Dahlen hole with placement of a ventriculostomy catheter removed 09/22 Left 4.4 cm cerebellar brain mass with vasogenic edema s/p EVD 09/29 for base of skull CSF leak vs. seroma.s/p Dahlen hole with ventriculostomy placement 10/10 for CSF leak Neurosurgery/Dr. Horvath following Seizure prophylaxis with levetiracetam 500 mg po twice daily 2D echocardiogram 07/09 revealed EF 25%. Echocardiogram 09/16 - endomyocardial borders are poorly visualized Normal left ventricular size. Wall thickness is normal. The left ventricular systolic function is mildly reduced with an estimated ejection fraction in the range of 45-50%. Nuclear medicine stress test per cardiology revealed no reversible ischemia. Ejection fraction 40% Lopressor to [address] Mancera following CT thorax revealed pulmonary nodules as above. Repeat CT scan in [address] pulmonary angiogram 09/26 revealed no pulmonary embolism. Possible aspiration/ infiltrates noted. Mild pulmonary edema resolved. Outpatient sleep study Lansoprazole 30 mg by tube daily for GI prophylaxis SSI with Novolin R with Accu-Cheks Monitor urine output with accurate I's and O's Holding apixaban 5 mg p.o. twice daily with s/p brain mass resection, and EVD in place. Do not resume. Per cardiology. Patient seen by Dr. Chen during this hospitalization. Follow-up with outpatient oncology DVT Prophylaxis - per neurosurgery, lovenox 40 mg daily started 10/12 , do not resume apixaban per career development specialist Discharge Planning Discharge Planning D/C pending clinical improvement No current d/c plan in place will need SNF upon dc
[2017-10-25 17:27] LABS: RBC on Tube 1 33762 /mm3
[2017-10-25] MEDS: Enoxaparin Inj 40 MG/0.4 ML Syringe SQ SCH (18:29)
--- NOTE | 2017-10-25 19:42 | P.PNONC ---
Subjective Interval history: spoke with and patient and he is getting a little better. left side still very weak. no bleeding Objective Vital Signs/Intake & Output: Vital Signs 10/24/17 20:00 10/24/17 21:19 10/24/17 22:00 Temperature 97.8 F Pulse Rate 57 L 57 L Respiratory Rate 17 Blood Pressure 108/64 Pulse Oximetry 100 99 10/25/17 00:00 10/25/17 02:00 10/25/17 04:00 Temperature 98.6 F 98.7 F Pulse Rate 57 L 55 L 58 L Respiratory Rate 15 15 Blood Pressure 126/75 Pulse Oximetry 100 10/25/17 06:00 10/25/17 19:39 Temperature Pulse Rate 58 L Respiratory Rate Blood Pressure Pulse Oximetry 100 Intake & Output 10/25/17 10/25/17 10/26/17 06:59 18:59 06:59 Intake Total 550 / 550 200 / 200 Output Total 1235 / 1235 Balance -685 / -685 200 / 200 Weight 93.5 kg Intake: IV 200 / 200 KCl 20 mEq Premix Inj 20 meq In 200 / 200 100 ml @ 50 mls/hr IV.SIG Q2H KATHERINE Rx#:[id number] Oral 550 / 550 Output: Urine 1200 / 1200 Stool 0 / 0 Intracranial Drainage 35 / 35 Right Temporoparietal 35 / 35 Other: # Voids 1 Date of Last Bowel Movement 10/24/17 # Bowel Movements 1 Result Diagrams: 10/25/17 03:40 10/25/17 00:02 Laboratory Results: Laboratory Results - last 24 hr 10/25/17 10/25/17 10/25/17 00:02 00:30 03:40 WBC 9.1 RBC 3.12 L Hgb 9.4 L Hct 28.0 L MCV 89.8 MCH 30.2 MCHC 33.6 RDW 21.1 H Plt Count 49 L MPV 8.9 Sodium 143 Potassium 2.5 L* D Chloride 109 H Carbon Dioxide 16.1 L Anion Gap 18 H BUN 44 H Creatinine 0.73 Estimated GFR Greater than 89 POC Glucose 187 H Random Glucose 197 H Calcium 8.6 CSF Volume (1) CSF Supernat Color (1) CSF Gross Blood (1) CSF WBC (1) CSF RBC (1) CSF Neutrophils % CSF Lymphocytes % CSF Monocytes % CSF Comment CSF Glucose CSF Total Protein 07/08/0910/25/17 10/25/17 06:20 Unknown Unknown WBC RBC Hgb Hct MCV MCH MCHC RDW Plt Count MPV Sodium Potassium Chloride Carbon Dioxide Anion Gap BUN Creatinine Estimated GFR POC Glucose 150 H Random Glucose Calcium CSF Volume (1) 3.5 CSF Supernat Color (1) Xanthochromic A CSF Gross Blood (1) 2+ A CSF WBC (1) 52 H CSF RBC (1) 26214 H CSF Neutrophils % 94 CSF Lymphocytes % 4 CSF Monocytes % 2 CSF Comment CSF Glucose 81 H CSF Total Protein 153.8 H Culture Results: Microbiology 10/25/17 Unknown Gram Stain - Final Shunt Fluid 10/24/17 12:46 Gram Stain - Final Shunt Fluid CSF Culture - Preliminary No growth in 24 hours Medications: Active Medications Generic Name Dose Route Start Last Admin Trade Name Freq PRN Reason Stop Dose Admin Al Hydroxide/Mg Hydroxide 30 ml 10/22/17 06:00 10/25/17 18:31 Milk Of Magnwanda Liq PO 30 ml Q12H KATHERINE Administration Artificial Tears 1 drop 10/22/17 06:00 10/25/17 14:02 Tears Naturale Opth Drops EACH EYE 1 drop Q8HR KATHERINE Administration Dexamethasone Sodium Phosphate 3 mg 10/22/17 00:00 10/25/17 18:29 Decadron Inj IV.PUSH 3 mg Q6HR KATHERINE Administration Diphenhydramine HCl 25 mg 10/22/17 22:30 10/24/17 22:45 Benadryl Inj IV.PUSH 25 mg Q24H KATHERINE Administration Enalapril Maleate 5 mg 10/22/17 00:00 10/25/17 11:37 Vasotec PO 5 mg Q12H KATHERINE Administration Enoxaparin Sodium 40 mg 10/22/17 16:00 10/25/17 18:29 Lovenox Inj SQ 40 mg Q24H KATHERINE Administration Fluconazole 400 mls @ 100 mls/hr 10/23/17 17:00 10/25/17 18:30 Diflucan 400 Mg Premix Bag IV.SIG 100 mls/hr Q24H KATHERINE Administration Amphotericin B 481.5 mg/ 320 mls @ 125 mls/hr 10/22/17 23:00 10/24/17 22:46 Dextrose IV.SIG 125 mls/hr Q24H KATHERINE Administration Methylprednisolone Sodium 0.925 mls @ 0 mls/hr 10/23/17 07:00 10/25/17 16:40 Succinate 5 mg/ Dextrose 0.8 IT 0.8 mls/hr ml/ Syringe/Bag MoWeFr KATHERINE Administration As Directed Methylprednisolone Sodium 3.925 mls @ 0 mls/hr 10/23/17 07:00 10/25/17 16:39 Succinate 5 mg/ Dextrose 3.8 IT 3.8 mls/hr ml/ Amphotericin B 0.1 mg/ MoWeFr KTAHERINE Administration Syringe/Bag As Directed Insulin Human Regular 0 units 10/22/17 14:00 10/25/17 18:32 Novolin R Supplemental Scale SQ 4 units Q6HR KATHERINE Administration Protocol Lactulose 30 ml 10/22/17 09:00 10/25/17 18:31 Lactulose Liq PO 30 ml TID KATHERINE Administration Levetiracetam 500 mg 10/22/17 09:00 10/25/17 10:24 Keppra PO 500 mg Q12HR KATHERINE Administration Metoprolol Tartrate 50 mg 10/22/17 09:00 10/25/17 10:24 Lopressor PO Not Given Q12H KATHERINE Mirtazapine 15 mg 10/22/17 21:00 10/24/17 22:44 Remeron PO 15 mg HS KATHERINE Administration Pantoprazole Sodium 40 mg 10/22/17 09:00 10/25/17 10:29 Protonix Inj IV.PUSH Not Given DAILY KATHERINE Pantoprazole Sodium 40 mg 10/22/17 09:00 10/25/17 10:27 Protonix PO 40 mg DAILY KATHERINE Administration Senna/Docusate Sodium 2 tab 10/22/17 09:00 10/25/17 10:24 Dari-Colace PO 2 tab BID KATHERINE Administration Sodium Chloride 2 ml 10/22/17 09:00 10/25/17 10:29 Ns Flush IV.FLUSH 2 ml BID KATHERINE Administration Sodium Chloride 1 gm 10/22/17 09:00 10/25/17 18:34 Sodium Chloride PO 1 gm TID KATHERINE Administration Objective Remarks: GENERAL: chronically ill and left sided weakness. He is cushingoid. SKIN: Warm and dry. HEAD: Has CSF drain right scalp EYES: No scleral icterus. No injection or drainage. NECK: Supple, trachea midline. No JVD or lymphadenopathy. LYMPHATIC: No adenopathy. CARDIOVASCULAR: Regular rate and rhythm without murmurs. RESPIRATORY: Breath sounds equal bilaterally. No accessory muscle use. GASTROINTESTINAL: Abdomen soft, non-tender, nondistended. Has reducible umbilical hernia EXTREMITIES: Trace edema bilaterally MUSCULOSKELETAL: Has muscle weakness. NEUROLOGICAL: Has left-sided weakness. Speech is slow.. PSYCHIATRIC: Appropriate mood and affect; insight and judgment normal. Skin NO evidence of bleeding. Assessment/Plan - Plan 1: The patient has a slowly progressive thrombocytopenia not associated with bleeding. The most likely explanation is secondary to medications. He is receiving amphotericin which can cause thrombocytopenia but appears to be necessary. Diflucan can cause thrombocytopenia. HIT is a less likely possibility. Recommend 1 will check for HIT. At this point do not have to stop Lovenox but if the platelet count falls to less than 40,000 I would stop the Lovenox. 2: Follow daily CBC and platelet count. If the platelet count falls below 40, 000 then one may have to look at changing the antibiotics as the thrombocytopenia is likely to be due to medications. 3: Will check PT PTT and fibrinogen. DIC unlikely in this clinical setting. Dr. Chen will return tomorrow.
[2017-10-25] MEDS: Mirtazapine 15 MG Tablet PO SCH (20:50)
[2017-10-25] MEDS ORDERED: Potassium Chloride 25 MEQ Effervescent Tablet PO ONE (21:15)
[2017-10-25] MEDS: Potassium Chlor 10 mEq Premix 10 MEQ/100 ML PIGGYBACK IV.SIG SCH (21:41)
[2017-10-26] MEDS: Potassium Chlor 10 mEq Premix 10 MEQ/100 ML PIGGYBACK IV.SIG SCH ×5 (00:11→04:11)
[2017-10-26] MEDS: DEXTROSE 5% IV.SIG SCH ×2 (00:15)
[2017-10-26] MEDS: AMPHOTERICIN B LIPOSOMAL IV.SIG SCH ×2 (00:15)
[2017-10-26] MEDS: WATER IV.SIG SCH ×2 (00:15)
[2017-10-26] MEDS: Insulin NovoLIN Regular Correctional Sugar Inj SQ SCH ×4 (00:18→18:20)
[2017-10-26] MEDS: Artificial Tears Opth Drops 15 ML Bottle EACH EYE SCH ×3 (06:03→21:05)
[2017-10-26 06:31] LABS: Hematocrit 27.6 % (39.0-51.0); Hemoglobin 9.3 gm/dL (13.0-17.0); Mean Corpuscular HGB Conc 33.7 % (32.0-36.0); Mean Corpuscular Hemoglobin 30.5 pg (27.0-34.0); Mean Corpuscular Volume 90.5 fL (80.0-100.0); Mean Platelet Volume 9.3 fL (7.0-11.0); Platelet Count 31 th/mm3 (150-450); Red Blood Count 3.05 mil/mm3 (4.50-5.90); Red Cell Distribution Width 21.5 % (11.6-17.2)
[2017-10-26 06:59] LABS: Albumin 2.4 g/dL (3.4-5.0); Anion Gap 18 meq/L (5-15); Blood Urea Nitrogen 37 mg/dL (7-18); Calcium 8.4 mg/dL (8.5-10.1); Carbon Dioxide 16.1 meq/L (21.0-32.0); Chloride 114 meq/L (98-107); Glomerular Filtration Rate Greater Than 89 mL/min (>89); Glucose,Random 181 mg/dL (74-106); Phosphorus 2.6 mg/dL (2.5-4.9); Sodium 148 meq/L (136-145)
[2017-10-26 07:02] LABS: Potassium 2.8 meq/L (3.5-5.1)
[2017-10-26 07:57] LABS: Lymphocytes 5 % (9-44); Monocytes 2 % (0-8); Myelocytes 2 % (0-0)
[2017-10-26 07:58] LABS: Ovalocytes 1+; Polychromasia 2.4 % (0.0-1.9)
[2017-10-26 07:59] LABS: Platelet Morphology Normal (Normal)
[2017-10-26] MEDS: levETIRAcetam 500 MG Tablet PO SCH ×2 (08:31→21:03)
[2017-10-26] MEDS: Sodium Chloride 1 GM Tablet PO SCH ×3 (08:31→17:19)
[2017-10-26] MEDS: Metoprolol Tartrate 50 MG Tablet PO SCH ×2 (08:31→21:03)
[2017-10-26] MEDS: Pantoprazole Inj 40 MG Vial IV.PUSH SCH (08:32)
[2017-10-26] MEDS: Senna/Docusate Sodium 8.6/50 MG Tablet PO SCH ×2 (09:12→21:03)
--- NOTE | 2017-10-26 11:34 | P.PNONC ---
Subjective Interval history: Afebrile overnight. patient resting in bed. no overnight events. no bleeding per nurse. Objective Vital Signs/Intake & Output: Vital Signs 10/25/17 12:00 10/25/17 14:00 10/25/17 16:00 Temperature 98.3 F 98.0 F Pulse Rate 70 80 88 Respiratory Rate 16 18 Blood Pressure 114/74 112/73 Pulse Oximetry 95 95 10/25/17 18:00 10/25/17 19:39 10/25/17 20:00 Temperature 97.7 F Pulse Rate 90 85 Respiratory Rate Blood Pressure 129/61 Pulse Oximetry 100 100 10/25/17 22:00 10/26/17 00:00 10/26/17 02:00 Temperature 98.7 F Pulse Rate 68 66 65 Respiratory Rate 15 Blood Pressure 113/70 Pulse Oximetry 97 10/26/17 04:00 10/26/17 06:00 10/26/17 08:00 Temperature 98.6 F Pulse Rate 58 L 64 60 Respiratory Rate 19 Blood Pressure 125/65 Pulse Oximetry 97 97 Intake & Output 10/25/17 10/26/17 10/26/17 18:59 06:59 18:59 Intake Total 684.850 / 684.850 740 / 740 820 / 820 Output Total 1630 / 1630 1270 / 1270 Balance -945.150 / -945.150 -530 / -530 820 / 820 Weight 92.7 kg Intake: IV 204.850 / 204.850 500 / 500 820 / 820 SoluMEDROL Inj 5 MG D5W Inj 3.8 3.925 / 3.925 ML Amphotericin B Conv. Inj 0. 1 MG In Bag/Syringe 1 EACH @ As Directed IT MoWeFr KATHERINE Rx#: [id number] SoluMEDROL Inj 5 MG D5W Inj 0.8 0.925 / 0.925 ML In Bag/Syringe 1 EACH @ As Directed IT MoWeFr KATHERINE Rx#: [id number] Ambisome Inj 481.5 MG In D5W 320 / 320 Inj 320 ML @ 125 mls/hr IV.SIG Q24H KATHERINE Rx#:[id number] Diflucan 400 mg Premix Bag 400 400 / 400 ML @ 100 mls/hr IV.SIG Q24H KATHERINE Rx#:[id number] KCl 10 mEq Premix Inj 10 meq In 500 / 500 100 / 100 100 ml @ 100 mls/hr IV.SIG Q1H KATHERINE Rx#:[id number] KCl 20 mEq Premix Inj 20 meq In 200 / 200 100 ml @ 50 mls/hr IV.SIG Q2H KATHERINE Rx#:[id number] Oral 480 / 480 240 / 240 Output: Urine 1600 / 1600 1200 / 1200 Stool 0 / 0 0 / 0 Intracranial Drainage 70 / 70 Right Temporoparietal 70 / 70 Other: # Voids 1 Date of Last Bowel Movement 10/24/17 10/24/17 # Bowel Movements 0 0 Result Diagrams: 10/27/17 06:00 10/26/17 21:15 Laboratory Results: Laboratory Results - last 24 hr 10/25/17 10/25/17 10/25/17 18:34 Unknown Unknown WBC RBC Hgb Hct MCV MCH MCHC RDW Plt Count MPV Prelim Diff (Auto) WBC Differential Seg Neuts % (Manual) Band Neuts % (Manual) Lymphocytes % (Manual) Monocytes % (Manual) Myelocytes % (Man) Abs Neuts (Manual) Differential Comment Platelet Estimate Platelet Morphology Polychromasia Ovalocytes Sodium Potassium 2.4 L* Chloride Carbon Dioxide Anion Gap BUN Creatinine Estimated GFR POC Glucose Random Glucose Calcium Phosphorus Albumin CSF Volume (1) 3.5 CSF Supernat Color (1) Xanthochromic A CSF Gross Blood (1) 2+ A CSF WBC (1) 52 H CSF RBC (1) 15635 H CSF Neutrophils % 94 CSF Lymphocytes % 4 CSF Monocytes % 2 CSF Comment CSF Glucose 81 H CSF Total Protein 153.8 H 10/26/17 10/26/17 10/26/17 00:06 05:34 05:34 WBC 8.0 RBC 3.05 L Hgb 9.3 L Hct 27.6 L MCV 90.5 MCH 30.5 MCHC 33.7 RDW 21.5 H Plt Count 31 L D MPV 9.3 Prelim Diff (Auto) Manual diff required WBC Differential Manual diff final Seg Neuts % (Manual) 86 H Band Neuts % (Manual) 5 Lymphocytes % (Manual) 5 L Monocytes % (Manual) 2 Myelocytes % (Man) 2 H Abs Neuts (Manual) 7.4 Differential Comment . Platelet Estimate Low L Platelet Morphology Normal Polychromasia 2.4 H Ovalocytes 1+ H Sodium 148 H Potassium 2.8 L* Chloride 114 H Carbon Dioxide 16.1 L Anion Gap 18 H BUN 37 H Creatinine 0.63 Estimated GFR Greater than 89 POC Glucose 231 H Random Glucose 181 H Calcium 8.4 L Phosphorus 2.6 Albumin 2.4 L CSF Volume (1) CSF Supernat Color (1) CSF Gross Blood (1) CSF WBC (1) CSF RBC (1) CSF Neutrophils % CSF Lymphocytes % CSF Monocytes % CSF Comment CSF Glucose CSF Total Protein Culture Results: Microbiology 10/25/17 Unknown Gram Stain - Final Shunt Fluid CSF Culture - Preliminary 10/24/17 12:46 Gram Stain - Final Shunt Fluid CSF Culture - Preliminary Medications: Active Medications Generic Name Dose Route Start Last Admin Trade Name Freq PRN Reason Stop Dose Admin Al Hydroxide/Mg Hydroxide 30 ml 10/22/17 06:00 10/26/17 06:03 Milk Of Magnesia Liq PO Not Given Q12H KATHERINE Artificial Tears 1 drop 10/22/17 06:00 10/26/17 06:03 Tears Naturale Opth Drops EACH EYE 1 drop Q8HR KATHERINE Administration Dexamethasone Sodium Phosphate 3 mg 10/22/17 00:00 10/26/17 06:02 Decadron Inj IV.PUSH 3 mg Q6HR KATHERINE Administration Diphenhydramine HCl 25 mg 10/22/17 22:30 10/26/17 00:10 Benadryl Inj IV.PUSH 25 mg Q24H KATHERINE Administration Enalapril Maleate 5 mg 10/22/17 00:00 10/26/17 00:19 Vasotec PO 5 mg Q12H KATHERINE Administration Fluconazole 400 mls @ 100 mls/hr 10/23/17 17:00 10/26/17 07:57 Diflucan 400 Mg Premix Bag IV.SIG Infused Q24H KATHERINE Infusion Amphotericin B 481.5 mg/ 320 mls @ 125 mls/hr 10/22/17 23:00 10/26/17 07:57 Dextrose IV.SIG Infused Q24H KATHERINE Infusion Methylprednisolone Sodium 0.925 mls @ 0 mls/hr 10/23/17 07:00 10/25/17 18:30 Succinate 5 mg/ Dextrose 0.8 IT Infused ml/ Syringe/Bag MoWeFr KATHERINE Infusion As Directed Methylprednisolone Sodium 3.925 mls @ 0 mls/hr 10/23/17 07:00 10/25/17 16:40 Succinate 5 mg/ Dextrose 3.8 IT Infused ml/ Amphotericin B 0.1 mg/ MoWeFr KATHERINE Infusion Syringe/Bag As Directed Insulin Human Regular 0 units 10/22/17 14:00 10/26/17 08:00 Novolin R Supplemental Scale SQ 4 units Q6HR KATHERINE Administration Protocol Lactulose 30 ml 10/22/17 09:00 10/26/17 09:12 Lactulose Liq PO Not Given TID KATHERINE Levetiracetam 500 mg 10/22/17 09:00 10/26/17 08:31 Keppra PO 500 mg Q12HR KATHERINE Administration Metoprolol Tartrate 50 mg 10/22/17 09:00 10/26/17 08:31 Lopressor PO Not Given Q12H KATHERINE Mirtazapine 15 mg 10/22/17 21:00 10/25/17 20:50 Remeron PO 15 mg HS KATHERINE Administration Pantoprazole Sodium 40 mg 10/22/17 09:00 10/26/17 08:32 Protonix Inj IV.PUSH Not Given DAILY KATHERINE Pantoprazole Sodium 40 mg 10/22/17 09:00 10/26/17 08:30 Protonix PO 40 mg DAILY KATHERINE Administration Potassium Phosphate 2,000 mg 10/22/17 00:01 10/26/17 08:30 K-Phos Original PO 2,000 mg UNSCH PRN Administration SEE LABEL COMMENTS Senna/Docusate Sodium 2 tab 10/22/17 09:00 10/26/17 09:12 Dari-Colace PO Not Given BID KATHERINE Sodium Chloride 2 ml 10/22/17 09:00 10/26/17 08:31 Ns Flush IV.FLUSH 2 ml BID KATHERINE Administration Sodium Chloride 1 gm 10/22/17 09:00 10/26/17 08:31 Sodium Chloride PO 1 gm TID KATHERINE Administration Objective Remarks: GENERAL: Middle aged male, sitting up in bed, appears fatigued and chronically ill appearing. SKIN: Warm and dry. HEAD: Normocephalic. ventriculostomy in place, dressing without bleeding. EYES: No injection or drainage. NECK: Supple, trachea midline. CARDIOVASCULAR: Regular rate and rhythm. RESPIRATORY: Breath sounds equal bilaterally. No accessory muscle use. GASTROINTESTINAL: Abdomen soft, non-tender, nondistended. EXTREMITIES: No cyanosis MUSCULOSKELETAL: Adequate muscle tone. NEUROLOGICAL: awake, but fatigued. normal speech. moving extremities. Assessment/Plan - Plan 52y/o male with metastatic urothelial carcinoma. Hematology re-consulted for thrombocytopenia. 1. thrombocytopenia differential includes medication side effect vs. dic vs. HIT --HIT pending. --coags show a mixed picture with mildly prolonged PT, low PTT and low fibrinogen. would be unusual to be DIC as one would anticipate PT and PTT to be prolonged, yet we have low fibrinogen and low platelets. will check coags again tomorrow for trend. --continue to watch platelet count. if possible to change antibiotics, that may be necessary, amphotericin does have thrombocytopenia listed as a possible side effect. 2. stop Lovenox as platelet count fell to 30K today. - Attending Statement The exam, history, and the medical decision-making described in the above note were completed with the assistance of the mid-level provider. I reviewed and agree with the findings presented. I attest that I had a [id number] encounter with the patient on the same day, and personally performed and documented my assessment and findings in the medical record. 52 yoM with sepsis and thrombocytopenia. HIT pending, will follow up DIC work up. ? secondary to antibiotics. HEmatology service will continue to follow.
[2017-10-26 12:42] LABS: INR 1.3 Ratio; Prothrombin Time 13.3 sec (9.8-11.6)
[2017-10-26] MEDS ORDERED: Sodium Chlor 0.9% Inj 250 ML IV.SIG SCH (13:00)
--- NOTE | 2017-10-26 13:24 | P.PNNS ---
Subjective Interval history: 10/22: No new problems reported. Continuing intrathecal amphotericin B. Not tolerating diet well. 10/23: Patient opens eyes to voice. He denies any headaches, nausea, vomiting, paresthesias. He does state that he has left-sided weakness which is improving. He has a ventriculostomy drain at 0 cm of water draining bloody CSF. 10/24: Patient asleep this morning but awakens to voice. Follows simple commands without any difficulty. Ventriculostomy catheter intact. 10/25/17: Pt awakens to voice. Verbalizes he wants to go home. Denies headaches , nausea or vomiting. Ventriculostomy in place with gold tinged CSF drainage. 10/26: Nursing called this practitioner this morning and stated that the patient had 20 mL of lori/yellow CSF drainage at 1030 this morning and within 30 minutes he had 40 mL of bloody drainage out. He also had bloody drainage to the occipital scalp incision with the dressing & pillow case being saturated. She reported that there were no neuro changes and that she changed the dressing at that time. When seen the patient is awake and fairly alert. He readily interacted and had no changes in his neuro assessment when evaluated. <Vasyl Long E - Last Filed: 10/26/17 13:06> Physical Exam Vital signs: Vital Signs 10/25/17 14:00 10/25/17 16:00 10/25/17 18:00 Temperature 98.0 F Pulse Rate 80 88 90 Respiratory Rate 18 Blood Pressure 112/73 Pulse Oximetry 95 10/25/17 19:39 10/25/17 20:00 10/25/17 22:00 Temperature 97.7 F Pulse Rate 85 68 Respiratory Rate Blood Pressure 129/61 Pulse Oximetry 100 100 10/26/17 00:00 10/26/17 02:00 10/26/17 04:00 Temperature 98.7 F 98.6 F Pulse Rate 66 65 58 L Respiratory Rate 15 19 Blood Pressure 113/70 125/65 Pulse Oximetry 97 97 10/26/17 06:00 10/26/17 08:00 Temperature Pulse Rate 64 60 Respiratory Rate Blood Pressure Pulse Oximetry 97 Intake & Output 10/25/17 10/26/17 10/26/17 18:59 06:59 18:59 Intake Total 684.850 / 684.850 740 / 740 820 / 820 Output Total 1630 / 1630 1270 / 1270 Balance -945.150 / -945.150 -530 / -530 820 / 820 Weight 92.7 kg Intake: IV 204.850 / 204.850 500 / 500 820 / 820 SoluMEDROL Inj 5 MG D5W Inj 3.8 3.925 / 3.925 ML Amphotericin B Conv. Inj 0. 1 MG In Bag/Syringe 1 EACH @ As Directed IT MoWeFr KATHERINE Rx#: [id number] SoluMEDROL Inj 5 MG D5W Inj 0.8 0.925 / 0.925 ML In Bag/Syringe 1 EACH @ As Directed IT MoWeFr KATHERINE Rx#: [id number] Ambisome Inj 481.5 MG In D5W 320 / 320 Inj 320 ML @ 125 mls/hr IV.SIG Q24H KATHERINE Rx#:[id number] Diflucan 400 mg Premix Bag 400 400 / 400 ML @ 100 mls/hr IV.SIG Q24H KATHERINE Rx#:[id number] KCl 10 mEq Premix Inj 10 meq In 500 / 500 100 / 100 100 ml @ 100 mls/hr IV.SIG Q1H KATHERINE Rx#:[id number] KCl 20 mEq Premix Inj 20 meq In 200 / 200 100 ml @ 50 mls/hr IV.SIG Q2H KATHERINE Rx#:[id number] Oral 480 / 480 240 / 240 Output: Urine 1600 / 1600 1200 / 1200 Stool 0 / 0 0 / 0 Intracranial Drainage 70 / 70 Right Temporoparietal 30 70 / 70 Other: # Voids 1 Date of Last Bowel Movement 10/24/17 10/24/17 # Bowel Movements 0 0 Narrative: GENERAL: Awake in bed when seen. Flat affect. Readily interacts. No apparent distress. HEENT: Normocephalic. Intact ventriculostomy catheter w/o any evident drainage, erythema or streaking noted, dressing intact. Dry & intact dressing to occipital scalp. PERRLA 3 mm, EOMI. MMM & pink, tongue midline to protrusion. MUSCULOSKELETAL: BRYANT to command. No evident clubbing or deformity. NEUROLOGICAL: Awake & fairly alert. Oriented to person, place & time. Voice soft. Follows simple commands. CN II through XII appear grossly intact. Moves all extremities to commands. Ventriculostomy at 0 cm H2O, bloody CSF drainage w/lori-coloured on top in collection chamber. <Vasyl Long E - Last Filed: 10/26/17 13:06> Vital signs: Vital Signs 10/25/17 19:39 10/25/17 20:00 10/25/17 22:00 Temperature 97.7 F Pulse Rate 85 68 Respiratory Rate Blood Pressure 129/61 Pulse Oximetry 100 100 10/26/17 00:00 10/26/17 02:00 10/26/17 04:00 Temperature 98.7 F 98.6 F Pulse Rate 66 65 58 L Respiratory Rate 15 19 Blood Pressure 113/70 125/65 Pulse Oximetry 97 97 10/26/17 06:00 10/26/17 08:00 10/26/17 10:00 Temperature 97.7 F Pulse Rate 64 60 60 Respiratory Rate 17 Blood Pressure 127/63 Pulse Oximetry 98 10/26/17 12:00 10/26/17 13:43 10/26/17 14:00 Temperature 97.7 F 97.6 F Pulse Rate 70 76 68 Respiratory Rate 15 19 Blood Pressure 103/67 111/82 Pulse Oximetry 96 97 10/26/17 14:07 10/26/17 14:12 10/26/17 16:00 Temperature 97.6 F 97.7 F 98.0 F Pulse Rate 76 72 66 Respiratory Rate 19 18 17 Blood Pressure 111/82 118/74 118/75 Pulse Oximetry 97 95 10/26/17 18:00 Temperature Pulse Rate 79 Respiratory Rate Blood Pressure Pulse Oximetry Intake & Output 10/26/17 10/26/17 10/27/17 06:59 18:59 06:59 Intake Total 740 / 740 1587 / 1587 Output Total 1270 / 1270 1200 / 1200 Balance -530 / -530 387 / 387 Weight 92.7 kg Intake: IV 500 / 500 820 / 820 Ambisome Inj 481.5 MG In D5W 320 / 320 Inj 320 ML @ 125 mls/hr IV.SIG Q24H KATHERINE Rx#:[id number] Diflucan 400 mg Premix Bag 400 400 / 400 ML @ 100 mls/hr IV.SIG Q24H KATHERINE Rx#:[id number] KCl 10 mEq Premix Inj 10 meq In 500 / 500 100 / 100 100 ml @ 100 mls/hr IV.SIG Q1H KATHERINE Rx#:[id number] Oral 240 / 240 480 / 480 Intake (Blood Product) Amt 287 / 287 Plt Pheresis B Leukoreduced 287 / 287 Unit [id number] Output: Urine 1200 / 1200 1200 / 1200 Stool 0 / 0 0 / 0 Intracranial Drainage 70 / 70 Right Temporoparietal 70 / 70 Other: # Voids 1 Date of Last Bowel Movement 10/24/17 10/24/17 # Bowel Movements 0 0 <Caesar Sommers - Last Filed: 10/26/17 19:25> Assessment and Plan - Assessment (1) Cerebral ventriculitis Code(s): G04.90 - Encephalitis and encephalomyelitis, unspecified Status: Acute - Plan Impression: Patient awake, w/o any change in neuro status. Bloody CSF noted in collection chamber when seen. No drainage noted on occipital scalp dressing changed 30 minutes prior to being seen. Plan: Continuing intrathecal amphotericin B on Saturdays, Mondays & Wednesdays. CSF studies per Infectious Disease on Sundays, Tuesdays & . Continue with neuro checks. Continue with rehab efforts. <Vasyl Long - Last Filed: 10/26/17 13:06> - Assessment (1) Cerebral ventriculitis Code(s): G04.90 - Encephalitis and encephalomyelitis, unspecified Status: Acute - Attending Attestation The exam, history, and the medical decision-making described in the above note were completed with the assistance of the mid-level provider. I reviewed and agree with the findings presented. I attest that I had a [id number] encounter with the patient on the same day, and personally performed and documented my assessment and findings in the medical record. Patient remains moderately lethargic today. No overall change in his neurologic exam over the past few days. He was noted to have a slight amount of drainage from the suboccipital incision site reported by nursing staff. On my examination it looks dry and intact. He was also reported to have some bloody drainage out the external ventricular catheter today. A CT scan of the head will be obtained to make certain that there is no new intraventricular or other hemorrhage. Discussed with infectious disease <Caesar Sommers - Last Filed: 10/26/17 19:25>
--- NOTE | 2017-10-26 16:02 | P.PNIM ---
Subjective Interval history: Patient resting as usual in bed open up to voice Per discussion with the nurse CSF showed increased level within the last few hours with some bleeding Drop in platelet to 30,000 very mildly prolonged PT PTT and sudden drop in fibrinogen, hematology following unlikely DIC, H IT antibody pending, Lovenox stopped, 1 unit of platelet count has been ordered and transfused, hematology and neurosurgery following. Recommendation is to change amphotericin to a different antifungal, discussed with ID it seems to be critically difficult to change it but she graciously will look at this Physical Exam Vital signs: Vital Signs 10/25/17 16:00 10/25/17 18:00 10/25/17 19:39 Temperature 98.0 F Pulse Rate 88 90 Respiratory Rate 18 Blood Pressure 112/73 Pulse Oximetry 95 100 10/25/17 20:00 10/25/17 22:00 10/26/17 00:00 Temperature 97.7 F 98.7 F Pulse Rate 85 68 66 Respiratory Rate 15 Blood Pressure 129/61 113/70 Pulse Oximetry 100 97 10/26/17 02:00 10/26/17 04:00 10/26/17 06:00 Temperature 98.6 F Pulse Rate 65 58 L 64 Respiratory Rate 19 Blood Pressure 125/65 Pulse Oximetry 97 10/26/17 08:00 10/26/17 13:43 10/26/17 14:07 Temperature 97.6 F 97.6 F Pulse Rate 60 76 76 Respiratory Rate 19 19 Blood Pressure 111/82 111/82 Pulse Oximetry 97 97 97 10/26/17 14:12 Temperature 97.7 F Pulse Rate 72 Respiratory Rate 18 Blood Pressure 118/74 Pulse Oximetry Intake & Output 10/25/17 10/26/17 10/26/17 18:59 06:59 18:59 Intake Total 684.850 / 684.850 740 / 740 1107 / 1107 Output Total 1630 / 1630 1270 / 1270 Balance -945.150 / -945.150 -530 / -530 1107 / 1107 Weight 92.7 kg Intake: IV 204.850 / 204.850 500 / 500 820 / 820 SoluMEDROL Inj 5 MG D5W Inj 3.8 3.925 / 3.925 ML Amphotericin B Conv. Inj 0. 1 MG In Bag/Syringe 1 EACH @ As Directed IT [facility] Rx#: [id number] SoluMEDROL Inj 5 MG D5W Inj 0.8 0.925 / 0.925 ML In Bag/Syringe 1 EACH @ As Directed IT [facility] Rx#: [id number] Ambisome Inj 481.5 MG In D5W 320 / 320 Inj 320 ML @ 125 mls/hr IV.SIG Q24H [facility] Rx#:[id number] Diflucan 400 mg Premix Bag 400 400 / 400 ML @ 100 mls/hr IV.SIG Q24H [facility] Rx#:[id number] KCl 10 mEq Premix Inj 10 meq In 500 / 500 100 / 100 100 ml @ 100 mls/hr IV.SIG Q1H [facility] Rx#:[id number] KCl 20 mEq Premix Inj 20 meq In 200 / 200 100 ml @ 50 mls/hr IV.SIG Q2H [facility] Rx#:[id number] Oral 480 / 480 240 / 240 Intake (Blood Product) Amt 287 / 287 Plt Pheresis B Leukoreduced 287 / 287 Unit [id number] Output: Urine 1600 / 1600 1200 / 1200 Stool 0 / 0 0 / 0 Intracranial Drainage 70 / 70 Right Temporoparietal 70 / 70 Other: # Voids 1 Date of Last Bowel Movement 10/24/17 10/24/17 # Bowel Movements 0 0 Narrative: GENERAL: Awake in bed when seen. Flat affect. Readily interacts. No apparent distress. HEENT: Normocephalic. Intact ventriculostomy catheter w/o any evident drainage, erythema or streaking noted, dressing intact. Dry & intact dressing to occipital scalp. PERRLA 3 mm, EOMI. MMM & pink, tongue midline to protrusion. MUSCULOSKELETAL: BRYANT to command. No evident clubbing or deformity. NEUROLOGICAL: Awake & fairly alert. Oriented to person, place & time. Voice soft. Follows simple commands. CN II through XII appear grossly intact. Moves all extremities to commands. Ventriculostomy at 0 cm H2O, bloody CSF drainage w/lori-coloured on top in collection chamber. Results - Labs CBC & Chem 7: 10/26/17 05:34 10/26/17 13:39 Laboratory Results - last 24 hr 10/25/17 10/25/17 10/25/17 18:34 Unknown Unknown WBC RBC Hgb Hct MCV MCH MCHC RDW Plt Count MPV Prelim Diff (Auto) WBC Differential Seg Neuts % (Manual) Band Neuts % (Manual) Lymphocytes % (Manual) Monocytes % (Manual) Myelocytes % (Man) Abs Neuts (Manual) Differential Comment Platelet Estimate Platelet Morphology Polychromasia Ovalocytes PT INR APTT Fibrinogen Sodium Potassium 2.4 L* Chloride Carbon Dioxide Anion Gap BUN Creatinine Estimated GFR POC Glucose Random Glucose Calcium Phosphorus Albumin CSF Volume (1) 3.5 CSF Supernat Color (1) Xanthochromic A CSF Gross Blood (1) 2+ A CSF WBC (1) 52 H CSF RBC (1) 94730 H CSF Neutrophils % 94 CSF Lymphocytes % 4 CSF Monocytes % 2 CSF Comment CSF Glucose 81 H CSF Total Protein 153.8 H Blood Type Confirm Bld Prod Order Comment 10/26/17 10/26/17 10/26/17 00:06 05:34 05:34 WBC 8.0 RBC 3.05 L Hgb 9.3 L Hct 27.6 L MCV 90.5 MCH 30.5 MCHC 33.7 RDW 21.5 H Plt Count 31 L D MPV 9.3 Prelim Diff (Auto) Manual diff required WBC Differential Manual diff final Seg Neuts % (Manual) 86 H Band Neuts % (Manual) 5 Lymphocytes % (Manual) 5 L Monocytes % (Manual) 2 Myelocytes % (Man) 2 H Abs Neuts (Manual) 7.4 Differential Comment . Platelet Estimate Low L Platelet Morphology Normal Polychromasia 2.4 H Ovalocytes 1+ H PT INR APTT Fibrinogen Sodium 148 H Potassium 2.8 L* Chloride 114 H Carbon Dioxide 16.1 L Anion Gap 18 H BUN 37 H Creatinine 0.63 Estimated GFR Greater than 89 POC Glucose 231 H Random Glucose 181 H Calcium 8.4 L Phosphorus 2.6 Albumin 2.4 L CSF Volume (1) CSF Supernat Color (1) CSF Gross Blood (1) CSF WBC (1) CSF RBC (1) CSF Neutrophils % CSF Lymphocytes % CSF Monocytes % CSF Comment CSF Glucose CSF Total Protein Blood Type Confirm Bld Prod Order Comment 10/26/17 10/26/17 10/26/17 10:44 12:20 12:42 WBC RBC Hgb Hct MCV MCH MCHC RDW Plt Count MPV Prelim Diff (Auto) WBC Differential Seg Neuts % (Manual) Band Neuts % (Manual) Lymphocytes % (Manual) Monocytes % (Manual) Myelocytes % (Man) Abs Neuts (Manual) Differential Comment Platelet Estimate Platelet Morphology Polychromasia Ovalocytes PT 13.3 H INR 1.3 APTT 21.0 L Fibrinogen 88 L* Sodium Potassium Chloride Carbon Dioxide Anion Gap BUN Creatinine Estimated GFR POC Glucose Random Glucose Calcium Phosphorus Albumin CSF Volume (1) CSF Supernat Color (1) CSF Gross Blood (1) CSF WBC (1) CSF RBC (1) CSF Neutrophils % CSF Lymphocytes % CSF Monocytes % CSF Comment CSF Glucose CSF Total Protein Blood Type Confirm O Positive Bld Prod Order Comment 10/26/17 10/26/17 10/26/17 12:42 12:47 13:39 WBC RBC Hgb Hct MCV MCH MCHC RDW Plt Count MPV Prelim Diff (Auto) WBC Differential Seg Neuts % (Manual) Band Neuts % (Manual) Lymphocytes % (Manual) Monocytes % (Manual) Myelocytes % (Man) Abs Neuts (Manual) Differential Comment Platelet Estimate Platelet Morphology Polychromasia Ovalocytes PT INR APTT Fibrinogen Sodium Potassium 3.0 L Chloride Carbon Dioxide Anion Gap BUN Creatinine Estimated GFR POC Glucose 168 H Random Glucose Calcium Phosphorus Albumin CSF Volume (1) CSF Supernat Color (1) CSF Gross Blood (1) CSF WBC (1) CSF RBC (1) CSF Neutrophils % CSF Lymphocytes % CSF Monocytes % CSF Comment CSF Glucose CSF Total Protein Blood Type Confirm O Positive Bld Prod Order Comment Microbiology 10/25/17 Unknown Shunt Fluid Gram Stain - Final 10/25/17 Unknown Shunt Fluid CSF Culture - Preliminary 10/24/17 12:46 Shunt Fluid Gram Stain - Final 10/24/17 12:46 Shunt Fluid CSF Culture - Preliminary Assessment and Plan - Plan this is a 52-year-old male who was admitted to [facility] on September 11, 2017. His medical history significant for atrial flutter status post ablation by Dr. Stokes , systolic heart failure with an ejection fraction of 25%, hypertension, hyperlipidemia, and bladder cancer with chemo radiation in 2016. He presented to the ED after he slipped and fell. He hit his head and in the ER a CT of the head was performed. CT was significant for a mass in the left posterior fossa. MRI of brain revealed that the left cerebral mass was 4.4 cm with vasogenic edema. Dr. Horvath was consulted. He had a ventriculostomy drain placed. The tube was clamped. Patient developed significant headaches. On September 25 he had reexploration of the posterior fossa craniotomy, evacuation of cerebellar clot, duraplasty with Dura-Guard enterocele, placement of epidural drain secondary to cerebral hemorrhage. Patient later became acutely hypoxic. CT of brain showed persistent edema with midline shift. Urine culture shows gram-negative rods and the patient was started on Rocephin. By October 07 the patient was extubated. On October 10 patient had a CSF leak from previous craniotomy site. He went back to the OR. He had a bur hole placed by Dr. Horvath. He was transferred back to the ICU placed on mechanical ventilation. CSF is growing yeast. Dr. Gibbons was consulted. On October 12 he was extubated. Care was transferred to hospitalist on October 13. 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 Flutter status post ablation by Dr. Mantilla 07/09 -currently normal sinus rhythm Chronic systolic heart failure ejection fraction 25% per echocardiogram 07/09 Essential hypertension Hyperlipidemia Bilateral renal cysts 3.7 cm on the right and 2.9 cm on the left superior pole> > follow-up patient Hyperglycemia/acute Colonic diverticulosis Suspect underlying depression Daily progress: 10/19: Severe hypokalemia 2.8, magnesium level is acceptable, will replete per protocol continue current care with IV antibiotic per ID, Per ID plan for: Intrathecal AMB 3 x/week injectioj 10/21 , then Mon- Mon- Mon starting next week Send CSF daily untill sterility documented : both cell count/ diff and cultures Will stop intrathecal injections after 3 consecutive sterile CSF cultures fullow closely CMP, CBC q 48 hrs add cefepime x 7 days, longer if needed 10/20: Continue current care as above intrathecal AMB 3 times a week, follow CMP CBC every 48 hours, continue cefepime , CSF sent today , follow ID recommendation 10/21:No fever or chills, discussed with the nurse patient did not have bowel movement in many days almost 5 He is on Colace and once daily lactulose 30 mg however he is refusing milk of mag I will add Dulcolax suppository Dari-Colace instead of the Colace and will increase the frequency of lactulose 10/22: Continue intrathecal treatment 3 times a week next one tomorrow 10/23 with sending out CSF, amphotericin to be stopped after 3 sequence negative CSF as per ID 10/24: CSF plan to be sent today, patient more awake and alert, continue PT and neuro check, neurosurgery following 10/25: CSF has not been sent yesterday will be sent today, before new intrathecal treatment, ID and neurosurgery following, monitor neuro check 10/26: Progressively worsening thrombocytopenia could be life-threatening platelet count 30K Per discussion with the nurse CSF showed increased level within the last few hours with some bleeding very mildly prolonged PT PTT and sudden drop in fibrinogen, hematology following unlikely DIC, H IT antibody pending, Lovenox stopped, 1 unit of platelet count has been ordered and transfused, hematology and neurosurgery following. Recommendation is to change amphotericin to a different antifungal, discussed with ID it seems to be critically difficult to change it but she graciously will look at this General plan: Status post-reexploration of the posterior fossa craniectomy, evacuation of cerebellar clot, duraplasty with DuraGuard and DuraSeal, placement of epidural drain secondary to cerebellar hemorrhage. 09/24>s/p stereotactic image guided suboccipital craniectomy, C1 laminectomy, microsurgical resection of metastatic carcinoma, duraplasty - 08/23>Right frontal [place] hole with placement of a ventriculostomy catheter removed 09/22 Left 4.4 cm cerebellar brain mass with vasogenic edema s/p EVD 09/29 for base of skull CSF leak vs. seroma.s/p [place] hole with ventriculostomy placement 10/10 for CSF leak Neurosurgery/Dr. Horvath following Seizure prophylaxis with levetiracetam 500 mg po twice daily 2D echocardiogram 07/09 revealed EF 25%. Echocardiogram 09/16 - endomyocardial borders are poorly visualized Normal left ventricular size. Wall thickness is normal. The left ventricular systolic function is mildly reduced with an estimated ejection fraction in the range of 45-50%. Nuclear medicine stress test per cardiology revealed no reversible ischemia. Ejection fraction 40% Lopressor to [address] Mancera following CT thorax revealed pulmonary nodules as above. Repeat CT scan in [address] pulmonary angiogram 09/26 revealed no pulmonary embolism. Possible aspiration/ infiltrates noted. Mild pulmonary edema resolved. Outpatient sleep study Lansoprazole 30 mg by tube daily for GI prophylaxis SSI with Novolin R with Accu-Cheks Monitor urine output with accurate I's and O's Holding apixaban 5 mg p.o. twice daily with s/p brain mass resection, and EVD in place. Do not resume. Per cardiology. Patient seen by Dr. Chen during this hospitalization. Follow-up with outpatient oncology DVT Prophylaxis - per neurosurgery, lovenox 40 mg daily started 10/12 , do not resume apixaban per tourist adviser Discharge Planning Discharge Planning D/C pending clinical improvement No current d/c plan in place will need SNF upon dc
[2017-10-26 16:22] LABS: Alkaline Phosphatase 97 U/L (45-117); Total Protein 5.3 g/dL (6.4-8.2)
[2017-10-26 17:14] LABS: Alanine Aminotransferase 72 U/L (12-78); Albumin 2.8 g/dL (3.4-5.0); Aspartate Aminotransferase 19 U/L (15-37)
--- NOTE | 2017-10-26 18:32 | P.DIET ---
Nutritional Evaluation Type of nutrition evaluation: follow-up Nutrition consult regarding: Tube Feeding Subjective Barriers to Nutrition: Swallowing problem Oral Diet Tolerance Assessment Indicates: Small amounts of food eaten Subjective Comments: Pt is Endentulous. Poor po intake. ST downgrade liquids to nectar thickened Objective - Diagnosis Intracramial Mass, Fall, Facial Injury - Objective Body Weight Used for Calculations: Upper end of IBW Energy Needs - Lower Range (kCal/kg): 25 Energy Needs - Upper Range (kCal/kg): 30 Lower Limit kCal/kg (kCals): 1,775 Upper Limit kCal/kg (kCals): 2,130 Lower Limit Protein Factor (Grams per Kg): 1.2 Upper Limit Protein Factor (Grams per Kg): 1.6 Lower Protein Needs (Protein): 85 Upper Protein Needs (Protein): 114 Dietitian Reviewed in Medical Record: Current diet, Curent medications, Intake & Output, Labs, Medical history, Tube feeding Diet Order: Regular [place] Thickened Liquids Oral Diet Intake Amount: Poor <50% Speech Therapy Recommendations: Yes (Regular NTL) Objective Comments: PMH Includes: AFib, Systolic Heart Failure,HTN,hyperlipidemia,bladder CA Accucheck 168 Feeding - Current PO Supplement Current Supplement: Glucerna Shake Current Frequency of Supplement: Three times a day Current kCals Provided by Supplement: 220 Current Protein Provided by Supplement: 10 Assessment Assessment: Nutrition Follow-up s/p TF'ing; extubated 10/12. Pt w/continued Inadequate po intak 50% or less for meals. Pt wt loss to 92.7kg. For a CHO modification, Rec diet restriction when needed. Monitor po intake CLOSELY. Continue Glucerna Shakes tid. Dietitian Following. Recommendations: 1.For CHO modification, Rec [id number] when needed 2.Monitor po intake CLOSELY 3.Continue Glucerna Shakes tid 4.Dietitian Following Dietitian to Monitor: Lab values, Glucose level, Supplement acceptance, Intake & Output, Diet tolerance, Weight change, PO Intake
--- NOTE | 2017-10-26 18:46 | P.PNID ---
Subjective Remarks: ID COVERAGE for Patient is a 52-year-old male, had surgery on a brain mass, and was found to have metastatic non-small cell carcinoma. Has recently been diagnosed to have Lisa ventriculitis, from a CSF October 10. Redo suboccipital craniectomy,C1 laminectomy, Duraplasty with repair of CSF leak on Oct 10, [address] CSF culture, October 10, October 16, and October 17 all with Lisa albicans Has been on amphotericin and fluconazole since October 11 Intrathecal M4 started yesterday Overnight events reviewed with RN No seizures during IT Ampho or after. CSF collected before IT ampho yday. Collected by [facility]. Overnight blood tinged fluid fresh blood like. aware and ordering repeat imaging today. He will call me if IT ampho has to be held. No fever No rash No new issues Denies headache Follows commands and talks.,smiles Antibiotics: IV AMpho IT Ampho Fluconazole Lines: Lines ok Past Medical History: atrial flutter systolic heart failure likely chronic ejection fraction 25%, hypertension, hyperlipidemia bladder cancer status post removal with chemoradiation therapy 2016. ablation bladder surgery 2 yrs ago Allergies/Adverse Reactions: Allergies No Known Allergies Allergy (Unknown, Uncoded 07/08/17 00:15) Objective Vital Signs 10/25/17 19:39 10/25/17 20:00 10/25/17 22:00 Temperature 97.7 F Pulse Rate 85 68 Respiratory Rate Blood Pressure 129/61 Pulse Oximetry 100 100 10/26/17 00:00 10/26/17 02:00 10/26/17 04:00 Temperature 98.7 F 98.6 F Pulse Rate 66 65 58 L Respiratory Rate 15 19 Blood Pressure 113/70 125/65 Pulse Oximetry 97 97 10/26/17 06:00 10/26/17 08:00 10/26/17 13:43 Temperature 97.6 F Pulse Rate 64 60 76 Respiratory Rate 19 Blood Pressure 111/82 Pulse Oximetry 97 97 10/26/17 14:07 10/26/17 14:12 Temperature 97.6 F 97.7 F Pulse Rate 76 72 Respiratory Rate 19 18 Blood Pressure 111/82 118/74 Pulse Oximetry 97 Intake & Output 10/25/17 10/26/17 10/26/17 18:59 06:59 18:59 Intake Total 684.850 / 684.850 740 / 740 1107 / 1107 Output Total 1630 / 1630 1270 / 1270 Balance -945.150 / -945.150 -530 / -530 1107 / 1107 Weight 92.7 kg Intake: IV 204.850 / 204.850 500 / 500 820 / 820 SoluMEDROL Inj 5 MG D5W Inj 3.8 3.925 / 3.925 ML Amphotericin B Conv. Inj 0. 1 MG In Bag/Syringe 1 EACH @ As Directed IT [facility] Rx#: [id number] SoluMEDROL Inj 5 MG D5W Inj 0.8 0.925 / 0.925 ML In Bag/Syringe 1 EACH @ As Directed IT [facility] Rx#: [id number] Ambisome Inj 481.5 MG In D5W 320 / 320 Inj 320 ML @ 125 mls/hr IV.SIG Q24H [facility] Rx#:[id number] Diflucan 400 mg Premix Bag 400 400 / 400 ML @ 100 mls/hr IV.SIG Q24H [facility] Rx#:[id number] KCl 10 mEq Premix Inj 10 meq In 500 / 500 100 / 100 100 ml @ 100 mls/hr IV.SIG Q1H [facility] Rx#:[id number] KCl 20 mEq Premix Inj 20 meq In 200 / 200 100 ml @ 50 mls/hr IV.SIG Q2H [facility] Rx#:[id number] Oral 480 / 480 240 / 240 Intake (Blood Product) Amt 287 / 287 Plt Pheresis B Leukoreduced 287 / 287 Unit [id number] Output: Urine 1600 / 1600 1200 / 1200 Stool 0 / 0 0 / 0 Intracranial Drainage 70 / 70 Right Temporoparietal 70 / 70 Other: # Voids 1 Date of Last Bowel Movement 10/24/17 10/24/17 10/24/17 # Bowel Movements 0 0 10/25/17 Unknown Shunt Fluid Gram Stain - Final 10/25/17 Unknown Shunt Fluid CSF Culture - Preliminary 10/24/17 12:46 Shunt Fluid Gram Stain - Final 10/24/17 12:46 Shunt Fluid CSF Culture - Preliminary 10/25/17 Unknown Cerebral Spinal Fluid - Shunt Fluid Fungal Smear - Pending 10/25/17 Unknown Cerebral Spinal Fluid - Shunt Fluid Fungal Culture - Pending Lab - Hematology Results 10/25/17 10/26/17 03:40 05:34 WBC 9.1 8.0 RBC 3.12 L 3.05 L Hgb 9.4 L 9.3 L Hct 28.0 L 27.6 L MCV 89.8 90.5 MCH 30.2 30.5 MCHC 33.6 33.7 RDW 21.1 H 21.5 H Plt Count 49 L 31 L D MPV 8.9 9.3 Prelim Diff (Auto) Manual diff required WBC Differential Manual diff final Seg Neuts % (Manual) 86 H Band Neuts % (Manual) 5 Lymphocytes % (Manual) 5 L Monocytes % (Manual) 2 Myelocytes % (Man) 2 H Abs Neuts (Manual) 7.4 Differential Comment . Platelet Estimate Low L Platelet Morphology Normal Polychromasia 2.4 H Ovalocytes 1+ H Lab - Chemistry Results 10/25/17 10/25/17 10/25/17 00:02 00:30 06:20 Sodium 143 Potassium 2.5 L* D Chloride 109 H Carbon Dioxide 16.1 L Anion Gap 18 H BUN 44 H Creatinine 0.73 Estimated GFR Greater than 89 POC Glucose 187 H 150 H Random Glucose 197 H Calcium 8.6 Phosphorus Magnesium Total Bilirubin Direct Bilirubin Indirect Bilirubin AST ALT Alkaline Phosphatase Total Protein Albumin 10/25/17 10/26/17 10/26/17 18:34 00:06 05:34 Sodium 148 H Potassium 2.4 L* 2.8 L* Chloride 114 H Carbon Dioxide 16.1 L Anion Gap 18 H BUN 37 H Creatinine 0.63 Estimated GFR Greater than 89 POC Glucose 231 H Random Glucose 181 H Calcium 8.4 L Phosphorus 2.6 Magnesium Total Bilirubin Direct Bilirubin Indirect Bilirubin AST ALT Alkaline Phosphatase Total Protein Albumin 2.4 L 10/26/17 10/26/17 10/26/17 12:47 13:39 13:39 Sodium Potassium 3.0 L Chloride Carbon Dioxide Anion Gap BUN Creatinine Estimated GFR POC Glucose 168 H Random Glucose Calcium Phosphorus Magnesium 2.3 Total Bilirubin Direct Bilirubin Indirect Bilirubin AST ALT Alkaline Phosphatase Total Protein Albumin 10/26/17 13:39 Sodium Potassium Chloride Carbon Dioxide Anion Gap BUN Creatinine Estimated GFR POC Glucose Random Glucose Calcium Phosphorus Magnesium Total Bilirubin 0.8 Direct Bilirubin Less than 0.1 Indirect Bilirubin 0.7 AST 19 ALT 72 Alkaline Phosphatase 97 Total Protein 5.3 L Albumin 2.8 L Imaging: ITS Impressions Chest X-Ray 10/23/17 00:00 CONCLUSION: The lungs are clear. Physical Exam: Physical Exam CONSTITUTIONAL/GENERAL: Keeps eyes closed, but he follows commands. He answers some questions this is an adequately nourished patient, in no apparent distress. SKIN: No jaundice, rashes, or lesions. Warm and dry HEAD: Ventric in place with blood-tinged CSF . R parietal incision clean EYES: Extraocular motions intact. No scleral icterus. No injection or drainage. Fundi not examined. ENT: Nose without bleeding or purulent drainage. Moist mucosa CARDIOVASCULAR: Regular rate and rhythm without murmurs, gallops, or rubs. RESPIRATORY/CHEST: Symmetric, unlabored respirations. Clear to auscultation. Breath sounds equal bilaterally. No wheezes, rales, or rhonchi. GASTROINTESTINAL: Abdomen soft, non-tender, nondistended. No guarding. Bowel sounds present. Has an umbilical hernia GENITOURINARY: Without palpable bladder distension MUSCULOSKELETAL: Extremities without clubbing, cyanosis, or edema.. No calf tenderness. No mottling or clubbing. NEUROLOGICAL: Awake, follows commands. Right hand overlock elastic attacher much stronger compared to the left PSYCHIATRIC: Cooperative LINE: No evidence of infection Assessment and Plan - Plan IMPRESSION Bladder cancer, metastatic with brain mets S/P neurosurgical procedure C albicans ventriculitis Serratia, PSAE PNA Serratia bacteremia : source is likley PNA line (PICC), vs PNA vs surgical site infection sp 1 week of treatment Thrombocytopenia PLAN Continue Ampho B Intrathecal Continue IV ampho B Continue Diflucan IV. Will decide on Intrathecal AMB in am depending on repeat imaging, zaida Chisholm. Monitor progress. zaida OROZCO
--- NOTE | 2017-10-26 20:28 | CT ---
EXAM DATE: 10/26/2017 8:11 PM EDT AGE/SEX: 52 years / Male INDICATIONS: Intra cerebral hemorrhage CLINICAL DATA: This is the patient's subsequent encounter. Patient reports that signs and symptoms h ave been present for 3 days and indicates a pain score of 0/10. MEDICAL/SURGICAL HISTORY: None. None. RADIATION DOSE: 56.37 CTDI (mGy) COMPARISON: [facility] [place], CT BRAIN W/O CONTRAST, 09/30/2017. . TECHNIQUE: CT of the head without contrast. Using automated exposure control and adjustment of the mA and/or kV according to patient size, radiation dose was kept as low as reasonably achievable to ob tain optimal diagnostic quality images. DICOM format image data is available electronically for revi ew and comparison. FINDINGS: Encephalomalacia in the left paramedian posterior fossa with parenchymal edema and hemorrhage again i dentified. There is been slight interval increase in size of central aspect of the parenchymal hemato ma. There is minimal persistent blood in the dependent occipital horns of the lateral ventricles. Mark triculostomy is stable in position. Ventricular size is stable. The supratentorial brain is otherwise stable and unremarkable in CONCLUSION: Slight interval increase in size of hemorrhage in the left paramedian posterior fossa. Electronically signed by: Oscar Roth MD 10/26/2017 8:26 PM EDT
[2017-10-26] MEDS: Mirtazapine 15 MG Tablet PO SCH (21:03)
[2017-10-27] MEDS: Potassium Chlor 10 mEq Premix 10 MEQ/100 ML PIGGYBACK IV.SIG SCH ×6 (00:52→07:01)
[2017-10-27] MEDS: AMPHOTERICIN B LIPOSOMAL IV.SIG SCH ×4 (00:58→22:54)
[2017-10-27] MEDS: DEXTROSE 5% IV.SIG SCH ×4 (00:58→22:54)
[2017-10-27] MEDS: WATER IV.SIG SCH ×4 (00:58→22:54)
[2017-10-27] MEDS: Insulin NovoLIN Regular Correctional Sugar Inj SQ SCH ×5 (05:52→23:25)
[2017-10-27 06:24] LABS: Baso % (Auto) 0.1 % (0.0-2.0); Hematocrit 25.2 % (39.0-51.0); Hemoglobin 8.5 gm/dL (13.0-17.0); Lymph # (Auto) 0.5 th/mm3 (1.0-4.8); Lymph % (Auto) 7.1 % (9.0-44.0); Mean Corpuscular HGB Conc 33.6 % (32.0-36.0); Mean Corpuscular Hemoglobin 30.5 pg (27.0-34.0); Mean Corpuscular Volume 90.9 fL (80.0-100.0); Mean Platelet Volume 8.9 fL (7.0-11.0); Mono # (Auto) 0.2 th/mm3 (0.0-0.9); Mono % (Auto) 2.1 % (0.0-8.0); Neut # (Auto) 6.7 th/mm3 (1.8-7.7); Neut % (Auto) 90.7 % (16.0-70.0); Platelet Count 48 th/mm3 (150-450); Red Blood Count 2.78 mil/mm3 (4.50-5.90); Red Cell Distribution Width 21.2 % (11.6-17.2); White Blood Count 7.4 th/mm3 (4.0-11.0)
[2017-10-27 07:52] LABS: Lymphocytes 4 % (9-44); Platelet Morphology Normal (Normal); Tallied Nucleated RBC 1 (0-0); Tear Drop Cells 1+
[2017-10-27] MEDS: Artificial Tears Opth Drops 15 ML Bottle EACH EYE SCH ×3 (09:19→23:21)
[2017-10-27] MEDS: Sodium Chloride 1 GM Tablet PO SCH ×3 (10:00→18:56)
[2017-10-27] MEDS: Metoprolol Tartrate 50 MG Tablet PO SCH ×2 (10:00→20:23)
[2017-10-27] MEDS: Pantoprazole Inj 40 MG Vial IV.PUSH SCH (10:00)
[2017-10-27] MEDS: levETIRAcetam 500 MG Tablet PO SCH ×2 (10:00→20:22)
[2017-10-27] MEDS: Senna/Docusate Sodium 8.6/50 MG Tablet PO SCH ×2 (10:00→20:23)
--- NOTE | 2017-10-27 10:41 | US ---
EXAM DATE: 10/27/2017 10:33 AM EDT AGE/SEX: 52 years / Male INDICATIONS: Increased lab values. CLINICAL DATA: This is the patient's subsequent encounter. Patient reports that signs and symptoms h ave been present for 1 month and indicates a pain score of 2/10. MEDICAL/SURGICAL HISTORY: . Congestive heart failure. Hypercholesterolemia. Hypertension. Neck pain. Chest pain. Dyspnea. Bilateral renal cysts. . Chemotherapy. Radiation therapy. Bladder cancer. Tonsillectomy. Malignant bladder tumor removed. COMPARISON: [facility] [place], US ABDOMEN - LIVER, 09/24/2017. . MEASUREMENTS: Liver:__ 18.4 cm. Common Bile Duct:__ 4mm. Right Kidney:__ cm. FINDINGS: Liver: Normal echotexture without focal lesion or ductal dilatation. Portal Vein: Hepatopedal flow seen in portal vein. Common Duct: No intraluminal mass or stone visualized. Gallbladder: Demonstrates no wall thickening or pericholecystic fluid. No stones visualized. Pancreas: The visualized portions are within normal limits Right Kidney: Normal echotexture and cortical thickness. No mass or hydronephrosis. A 3.6 cm cyst is noted off the upper pole Other: None. CONCLUSION: 1. Simple right renal cyst. 2. Otherwise normal examination of the abdomen. Electronically signed by: Valentino Beltran MD 10/27/2017 10:39 AM EDT
--- NOTE | 2017-10-27 11:53 | P.PNONC ---
Subjective Interval history: Afebrile overnight. Patient resting in bed. no family members at bedside. patient fatigued, somewhat lethargic. Objective Vital Signs/Intake & Output: Vital Signs 10/26/17 12:00 10/26/17 13:43 10/26/17 14:00 Temperature 97.7 F 97.6 F Pulse Rate 70 76 68 Respiratory Rate 15 19 Blood Pressure 103/67 111/82 Pulse Oximetry 96 97 10/26/17 14:07 10/26/17 14:12 10/26/17 16:00 Temperature 97.6 F 97.7 F 98.0 F Pulse Rate 76 72 66 Respiratory Rate 19 18 17 Blood Pressure 111/82 118/74 118/75 Pulse Oximetry 97 95 10/26/17 18:00 10/26/17 20:00 10/27/17 00:00 Temperature 97.9 F 98.0 F Pulse Rate 79 91 H 78 Respiratory Rate 20 17 Blood Pressure 119/70 118/67 Pulse Oximetry 96 96 10/27/17 04:00 10/27/17 08:00 10/27/17 10:00 Temperature 98.1 F 97.8 F Pulse Rate 72 71 81 Respiratory Rate 20 18 Blood Pressure 109/68 Pulse Oximetry 96 89 L Intake & Output 10/26/17 10/27/17 10/27/17 18:59 06:59 18:59 Intake Total 1587 / 1587 1150 / 1150 0 / 0 Output Total 1200 / 1200 1035 / 1035 Balance 387 / 387 115 / 115 0 / 0 Intake: IV 820 / 820 1150 / 1150 0 / 0 Ambisome Inj 481.5 MG In D5W 320 / 320 Inj 320 ML @ 125 mls/hr IV.SIG Q24H KATHERINE Rx#:[id number] Diflucan 400 mg Premix Bag 400 400 / 400 400 / 400 ML @ 100 mls/hr IV.SIG Q24H KATHERINE Rx#:[id number] KCl 10 mEq Premix Inj 10 meq In 100 / 100 500 / 500 0 / 0 100 ml @ 100 mls/hr IV.SIG Q1H KATHERINE Rx#:[id number] NS Inj 250 ML @ 15 mls/hr IV. 250 / 250 SIG ONCE KATHERINE Rx#:[id number] Oral 480 / 480 Intake (Blood Product) Amt 287 / 287 Plt Pheresis B Leukoreduced 287 / 287 Unit [id number] Output: Urine 1200 / 1200 Stool 0 / 0 Urine Amount (Catheter) 1000 / 1000 Condom 1000 / 1000 Intracranial Drainage 35 / 35 Right Temporoparietal 35 / 35 Other: Date of Last Bowel Movement 10/24/17 10/24/17 10/24/17 # Bowel Movements 0 Result Diagrams: 10/28/17 04:51 10/28/17 04:51 Laboratory Results: Laboratory Results - last 24 hr 10/25/17 10/26/17 10/26/17 18:34 10:44 12:20 WBC RBC Hgb Hct MCV MCH MCHC RDW Plt Count MPV Prelim Diff (Auto) Neut % (Auto) Lymph % (Auto) [place] % (Auto) Eos % (Auto) Baso % (Auto) Neut # (Auto) Lymph # (Auto) [place] # (Auto) Eos # (Auto) Baso # (Auto) WBC Differential Seg Neuts % (Manual) Band Neuts % (Manual) Lymphocytes % (Manual) Abs Neuts (Manual) Nucleated RBCs/100 WBC Differential Comment Platelet Estimate Platelet Morphology Tear Drop Cells PT 13.3 H INR 1.3 APTT 21.0 L Fibrinogen 88 L* Potassium POC Glucose Magnesium Total Bilirubin Direct Bilirubin Indirect Bilirubin AST ALT Alkaline Phosphatase Total Protein Albumin Hep-Induced Plt Ab Eliane Negative HIPA Patient OD 0.049 Blood Type Confirm Bld Prod Order Comment 10/26/17 10/26/17 10/26/17 12:42 12:42 12:47 WBC RBC Hgb Hct MCV MCH MCHC RDW Plt Count MPV Prelim Diff (Auto) Neut % (Auto) Lymph % (Auto) [place] % (Auto) Eos % (Auto) Baso % (Auto) Neut # (Auto) Lymph # (Auto) [place] # (Auto) Eos # (Auto) Baso # (Auto) WBC Differential Seg Neuts % (Manual) Band Neuts % (Manual) Lymphocytes % (Manual) Abs Neuts (Manual) Nucleated RBCs/100 WBC Differential Comment Platelet Estimate Platelet Morphology Tear Drop Cells PT INR APTT Fibrinogen Potassium POC Glucose 168 H Magnesium Total Bilirubin Direct Bilirubin Indirect Bilirubin AST ALT Alkaline Phosphatase Total Protein Albumin Hep-Induced Plt Ab Eliane HIPA Patient OD Blood Type Confirm O Positive O Positive Bld Prod Order Comment 10/26/17 10/26/17 10/26/17 13:39 13:39 13:39 WBC RBC Hgb Hct MCV MCH MCHC RDW Plt Count MPV Prelim Diff (Auto) Neut % (Auto) Lymph % (Auto) [place] % (Auto) Eos % (Auto) Baso % (Auto) Neut # (Auto) Lymph # (Auto) [place] # (Auto) Eos # (Auto) Baso # (Auto) WBC Differential Seg Neuts % (Manual) Band Neuts % (Manual) Lymphocytes % (Manual) Abs Neuts (Manual) Nucleated RBCs/100 WBC Differential Comment Platelet Estimate Platelet Morphology Tear Drop Cells PT INR APTT Fibrinogen Potassium 3.0 L POC Glucose Magnesium 2.3 Total Bilirubin 0.8 Direct Bilirubin Less than 0.1 Indirect Bilirubin 0.7 AST 19 ALT 72 Alkaline Phosphatase 97 Total Protein 5.3 L Albumin 2.8 L Hep-Induced Plt Ab Eliane HIPA Patient OD Blood Type Confirm Bld Prod Order Comment 10/26/17 10/26/17 10/27/17 21:15 23:49 05:38 WBC RBC Hgb Hct MCV MCH MCHC RDW Plt Count MPV Prelim Diff (Auto) Neut % (Auto) Lymph % (Auto) [place] % (Auto) Eos % (Auto) Baso % (Auto) Neut # (Auto) Lymph # (Auto) [place] # (Auto) Eos # (Auto) Baso # (Auto) WBC Differential Seg Neuts % (Manual) Band Neuts % (Manual) Lymphocytes % (Manual) Abs Neuts (Manual) Nucleated RBCs/100 WBC Differential Comment Platelet Estimate Platelet Morphology Tear Drop Cells PT INR APTT Fibrinogen Potassium 2.5 L* POC Glucose 183 H 176 H Magnesium Total Bilirubin Direct Bilirubin Indirect Bilirubin AST ALT Alkaline Phosphatase Total Protein Albumin Hep-Induced Plt Ab Eliane HIPA Patient OD Blood Type Confirm Bld Prod Order Comment 10/27/17 06:00 WBC 7.4 RBC 2.78 L Hgb 8.5 L Hct 25.2 L MCV 90.9 MCH 30.5 MCHC 33.6 RDW 21.2 H Plt Count 48 L D MPV 8.9 Prelim Diff (Auto) Slide review pending Neut % (Auto) 90.7 H Lymph % (Auto) 7.1 L [place] % (Auto) 2.1 Eos % (Auto) 0.0 Baso % (Auto) 0.1 Neut # (Auto) 6.7 Lymph # (Auto) 0.5 L [place] # (Auto) 0.2 Eos # (Auto) 0.0 Baso # (Auto) 0.0 WBC Differential Manual diff final Seg Neuts % (Manual) 95 H Band Neuts % (Manual) 1 Lymphocytes % (Manual) 4 L Abs Neuts (Manual) 7.1 Nucleated RBCs/100 WBC 1 H Differential Comment . Platelet Estimate Low L Platelet Morphology Normal Tear Drop Cells 1+ H PT INR APTT Fibrinogen Potassium POC Glucose Magnesium Total Bilirubin Direct Bilirubin Indirect Bilirubin AST ALT Alkaline Phosphatase Total Protein Albumin Hep-Induced Plt Ab Eliane HIPA Patient OD Blood Type Confirm Bld Prod Order Comment Culture Results: Microbiology 10/25/17 Unknown Gram Stain - Final Shunt Fluid CSF Culture - Preliminary Yeast - ID to follow 10/25/17 Unknown Fungal Smear - Final Cerebral Spinal Fluid - Shunt Fluid No fungal elements seen 10/24/17 12:46 Gram Stain - Final Shunt Fluid CSF Culture - Final No growth in 72 hours (aerobically and anaerobically) Imaging Studies: Impressions Head CT 10/26/17 00:00 CONCLUSION: Slight interval increase in size of hemorrhage in the left paramedian posterior fossa. Liver Ultrasound 10/27/17 00:00 CONCLUSION: 1. Simple right renal cyst. 2. Otherwise normal examination of the abdomen. Medications: Active Medications Generic Name Dose Route Start Last Admin Trade Name Freq PRN Reason Stop Dose Admin Al Hydroxide/Mg Hydroxide 30 ml 10/22/17 06:00 10/27/17 09:18 Milk Of Magnesia Liq PO Not Given Q12H KATHERINE Artificial Tears 1 drop 10/22/17 06:00 10/27/17 09:19 Tears Naturale Opth Drops EACH EYE Not Given Q8HR KATHERINE Dexamethasone Sodium Phosphate 3 mg 10/22/17 00:00 10/27/17 11:32 Decadron Inj IV.PUSH 3 mg Q6HR KATHERINE Administration Diphenhydramine HCl 25 mg 10/22/17 22:30 10/26/17 23:12 Benadryl Inj IV.PUSH 25 mg Q24H KATHERINE Administration Enalapril Maleate 5 mg 10/22/17 00:00 10/27/17 11:32 Vasotec PO 5 mg Q12H KATHERINE Administration Fluconazole 400 mls @ 100 mls/hr 10/23/17 17:00 10/26/17 19:31 Diflucan 400 Mg Premix Bag IV.SIG Infused Q24H KATHERINE Infusion Amphotericin B 481.5 mg/ 320 mls @ 125 mls/hr 10/22/17 23:00 10/27/17 00:58 Dextrose IV.SIG 125 mls/hr Q24H KATHERINE Administration Methylprednisolone Sodium 0.925 mls @ 0 mls/hr 10/23/17 07:00 10/25/17 18:30 Succinate 5 mg/ Dextrose 0.8 IT Infused ml/ Syringe/Bag MoWeFr KATHERINE Infusion As Directed Methylprednisolone Sodium 3.925 mls @ 0 mls/hr 10/23/17 07:00 10/25/17 16:40 Succinate 5 mg/ Dextrose 3.8 IT Infused ml/ Amphotericin B 0.1 mg/ MoWeFr KATHERINE Infusion Syringe/Bag As Directed Insulin Human Regular 0 units 10/22/17 14:00 10/27/17 05:52 Novolin R Supplemental Scale SQ 2 units Q6HR KATHERINE Administration Protocol Lactulose 30 ml 10/22/17 09:00 10/27/17 10:01 Lactulose Liq PO 30 ml TID KATHERINE Administration Levetiracetam 500 mg 10/22/17 09:00 10/27/17 10:00 Keppra PO 500 mg Q12HR KATHERINE Administration Metoprolol Tartrate 50 mg 10/22/17 09:00 10/27/17 10:00 Lopressor PO 50 mg Q12H KATHERINE Administration Mirtazapine 15 mg 10/22/17 21:00 10/26/17 21:03 Remeron PO 15 mg HS KATHERINE Administration Pantoprazole Sodium 40 mg 10/22/17 09:00 10/27/17 10:00 Protonix Inj IV.PUSH 40 mg DAILY KATHERINE Administration Pantoprazole Sodium 40 mg 10/22/17 09:00 10/27/17 10:00 Protonix PO 40 mg DAILY KATHERINE Administration Potassium Phosphate 2,000 mg 10/22/17 00:01 10/26/17 08:30 K-Phos Original PO 2,000 mg UNSCH PRN Administration SEE LABEL COMMENTS Senna/Docusate Sodium 2 tab 10/22/17 09:00 10/27/17 10:00 Dari-Colace PO 2 tab BID KATHERINE Administration Sodium Chloride 2 ml 10/22/17 09:00 10/27/17 10:00 Ns Flush IV.FLUSH 2 ml BID KATHERINE Administration Sodium Chloride 1 gm 10/22/17 09:00 10/27/17 10:00 Sodium Chloride PO 1 gm TID KATHERINE Administration Objective Remarks: GENERAL: Middle aged male, lying upright in bed. lethargic. SKIN: Warm and dry. HEAD: Normocephalic. ventriculostomy in place, drainage bag holds serous drainage, no blood visible. EYES: No injection or drainage. NECK: Supple, trachea midline. CARDIOVASCULAR: Regular rate and rhythm. RESPIRATORY: Breath sounds equal bilaterally. No accessory muscle use. GASTROINTESTINAL: Abdomen soft, non-tender, nondistended. EXTREMITIES: No cyanosis NEUROLOGICAL: lethargic. normal speech. moving right arm, cannot move left arm. Assessment/Plan - Plan 52y/o male with metastatic urothelial carcinoma. Hematology re-consulted for thrombocytopenia. 1. thrombocytopenia differential includes medication side effect vs. dic vs. HIT --HIT negative --repeat coags pending. --platelet count with mild improvement today, likely d/t platelet transfusion. - Attending Statement The exam, history, and the medical decision-making described in the above note were completed with the assistance of the mid-level provider. I reviewed and agree with the findings presented. I attest that I had a [id number] encounter with the patient on the same day, and personally performed and documented my assessment and findings in the medical record. 52 yoM with metastatic bladder cancer s/p nsgy and now with fungal infection. ID following on antifungal agents. Low fibrinogen, however PTT within normal limits, PTslightly prolonged. IN patients with DIC and hypofinbrogenemia would certain expect prolongation of PT, PTT. LIver ultrasound WNL. No clinical bleeding. S/p platelet transfusion with good response. Lovenox discontinued with platelet count less than 50K.
[2017-10-27 14:20] LABS: Activated Partial Thrombo Time 20.5 sec (24.3-30.1)
[2017-10-27] MEDS ORDERED: Potassium Chlor 40 mEq Premix 40 MEQ/100 ML PIGGYBACK IV.SIG PRN ×2 (14:40)
--- NOTE | 2017-10-27 14:43 | P.PNIM ---
Subjective Interval history: No overnight events. Answers questions, denies any headache, neurologic deficits stable. Afebrile, no gross bleeding. Physical Exam Vital signs: Vital Signs 10/26/17 16:00 10/26/17 18:00 10/26/17 20:00 Temperature 98.0 F 97.9 F Pulse Rate 66 79 91 H Respiratory Rate 17 20 Blood Pressure 118/75 119/70 Pulse Oximetry 95 96 10/27/17 00:00 10/27/17 04:00 10/27/17 08:00 Temperature 98.0 F 98.1 F 97.8 F Pulse Rate 78 72 71 Respiratory Rate 17 20 18 Blood Pressure 118/67 109/68 Pulse Oximetry 96 96 89 L 10/27/17 10:00 10/27/17 12:00 10/27/17 14:00 Temperature 98.6 F Pulse Rate 81 70 69 Respiratory Rate 21 Blood Pressure 104/68 Pulse Oximetry 98 Intake & Output 10/26/17 10/27/17 10/27/17 18:59 06:59 18:59 Intake Total 1587 / 1587 1150 / 1150 0 / 0 Output Total 1200 / 1200 1035 / 1035 Balance 387 / 387 115 / 115 0 / 0 Intake: IV 820 / 820 1150 / 1150 0 / 0 Ambisome Inj 481.5 MG In D5W 320 / 320 Inj 320 ML @ 125 mls/hr IV.SIG Q24H KATHERINE Rx#:[id number] Diflucan 400 mg Premix Bag 400 400 / 400 400 / 400 ML @ 100 mls/hr IV.SIG Q24H KATHERINE Rx#:[id number] KCl 10 mEq Premix Inj 10 meq In 100 / 100 500 / 500 0 / 0 100 ml @ 100 mls/hr IV.SIG Q1H KATHERINE Rx#:[id number] NS Inj 250 ML @ 15 mls/hr IV. 250 / 250 SIG ONCE KATHERINE Rx#:[id number] Oral 480 / 480 Intake (Blood Product) Amt 287 / 287 Plt Pheresis B Leukoreduced 287 / 287 Unit [id number] Output: Urine 1200 / 1200 Stool 0 / 0 Urine Amount (Catheter) 1000 / 1000 Condom 1000 / 1000 Intracranial Drainage 35 / 35 Right Temporoparietal 35 / 35 Other: Date of Last Bowel Movement 10/24/17 10/24/17 10/24/17 # Bowel Movements 0 Narrative: Not in distress Ventriculostomy in place Pupils equal reactive to light, pink conjunctivae Regular rate and rhythm, no murmurs Clear breath sounds, poor effort Abdomen soft nontender No edema, SCDs in place Alert, awake, oriented to self, place and month. Positive for left-sided weakness, about 4/5 compared to the right. - Urinary Catheter Management Condom Cath placed during this visit: no Results - Labs CBC & Chem 7: 10/27/17 06:00 10/27/17 13:27 Laboratory Results - last 24 hr 10/25/17 10/26/17 10/26/17 18:34 13:39 13:39 WBC RBC Hgb Hct MCV MCH MCHC RDW Plt Count MPV Prelim Diff (Auto) Neut % (Auto) Lymph % (Auto) [place] % (Auto) Eos % (Auto) Baso % (Auto) Neut # (Auto) Lymph # (Auto) [place] # (Auto) Eos # (Auto) Baso # (Auto) WBC Differential Seg Neuts % (Manual) Band Neuts % (Manual) Lymphocytes % (Manual) Abs Neuts (Manual) Nucleated RBCs/100 WBC Differential Comment Platelet Estimate Platelet Morphology Tear Drop Cells APTT Fibrinogen Potassium 3.0 L POC Glucose Magnesium 2.3 Total Bilirubin Direct Bilirubin Indirect Bilirubin AST ALT Alkaline Phosphatase Total Protein Albumin Hep-Induced Plt Ab Eliane Negative HIPA Patient OD 0.049 10/26/17 10/26/17 10/26/17 13:39 21:15 23:49 WBC RBC Hgb Hct MCV MCH MCHC RDW Plt Count MPV Prelim Diff (Auto) Neut % (Auto) Lymph % (Auto) [place] % (Auto) Eos % (Auto) Baso % (Auto) Neut # (Auto) Lymph # (Auto) [place] # (Auto) Eos # (Auto) Baso # (Auto) WBC Differential Seg Neuts % (Manual) Band Neuts % (Manual) Lymphocytes % (Manual) Abs Neuts (Manual) Nucleated RBCs/100 WBC Differential Comment Platelet Estimate Platelet Morphology Tear Drop Cells APTT Fibrinogen Potassium 2.5 L* POC Glucose 183 H Magnesium Total Bilirubin 0.8 Direct Bilirubin Less than 0.1 Indirect Bilirubin 0.7 AST 19 ALT 72 Alkaline Phosphatase 97 Total Protein 5.3 L Albumin 2.8 L Hep-Induced Plt Ab Eliane HIPA Patient OD 10/27/17 10/27/17 10/27/17 05:38 06:00 13:27 WBC 7.4 RBC 2.78 L Hgb 8.5 L Hct 25.2 L MCV 90.9 MCH 30.5 MCHC 33.6 RDW 21.2 H Plt Count 48 L D MPV 8.9 Prelim Diff (Auto) Slide review pending Neut % (Auto) 90.7 H Lymph % (Auto) 7.1 L [place] % (Auto) 2.1 Eos % (Auto) 0.0 Baso % (Auto) 0.1 Neut # (Auto) 6.7 Lymph # (Auto) 0.5 L [place] # (Auto) 0.2 Eos # (Auto) 0.0 Baso # (Auto) 0.0 WBC Differential Manual diff final Seg Neuts % (Manual) 95 H Band Neuts % (Manual) 1 Lymphocytes % (Manual) 4 L Abs Neuts (Manual) 7.1 Nucleated RBCs/100 WBC 1 H Differential Comment . Platelet Estimate Low L Platelet Morphology Normal Tear Drop Cells 1+ H APTT Fibrinogen Potassium 2.9 L* POC Glucose 176 H Magnesium Total Bilirubin Direct Bilirubin Indirect Bilirubin AST ALT Alkaline Phosphatase Total Protein Albumin Hep-Induced Plt Ab Eliane HIPA Patient OD 10/27/17 13:27 WBC RBC Hgb Hct MCV MCH MCHC RDW Plt Count MPV Prelim Diff (Auto) Neut % (Auto) Lymph % (Auto) [place] % (Auto) Eos % (Auto) Baso % (Auto) Neut # (Auto) Lymph # (Auto) [place] # (Auto) Eos # (Auto) Baso # (Auto) WBC Differential Seg Neuts % (Manual) Band Neuts % (Manual) Lymphocytes % (Manual) Abs Neuts (Manual) Nucleated RBCs/100 WBC Differential Comment Platelet Estimate Platelet Morphology Tear Drop Cells APTT 20.5 L Fibrinogen 97 L* Potassium POC Glucose Magnesium Total Bilirubin Direct Bilirubin Indirect Bilirubin AST ALT Alkaline Phosphatase Total Protein Albumin Hep-Induced Plt Ab Eliane HIPA Patient OD Microbiology 10/25/17 Unknown Shunt Fluid Gram Stain - Final 10/25/17 Unknown Shunt Fluid CSF Culture - Preliminary Yeast - ID to follow 10/25/17 Unknown Cerebral Spinal Fluid - Shunt Fluid Fungal Smear - Final No fungal elements seen 10/24/17 12:46 Shunt Fluid Gram Stain - Final 10/24/17 12:46 Shunt Fluid CSF Culture - Final No growth in 72 hours (aerobically and anaerobically ) - Imaging Impressions Head CT 10/26/17 00:00 CONCLUSION: Slight interval increase in size of hemorrhage in the left paramedian posterior fossa. Liver Ultrasound 10/27/17 00:00 CONCLUSION: 1. Simple right renal cyst. 2. Otherwise normal examination of the abdomen. - Procedures 09/24>s/p stereotactic image guided suboccipital craniectomy, C1 laminectomy, microsurgical resection of metastatic carcinoma, duraplasty - 08/23>Right frontal Walt hole with placement of a ventriculostomy catheter removed 09/22 Left 4.4 cm cerebellar brain mass with vasogenic edema s/p EVD 09/29 for base of skull CSF leak vs. seroma.s/p Walt hole with ventriculostomy placement 10/10 for CSF leak Assessment and Plan - Plan This is a 52-year-old male who was admitted to [facility] on September 11, 2017 w/ h/o of atrial flutter status post ablation by Dr. Stokes, systolic heart failure with an ejection fraction of 25%, hypertension, hyperlipidemia, and bladder cancer with chemo radiation in 2015. He presented to the ED after he slipped and fell. CT was significant for a mass in the left posterior fossa. The tube was clamped. Patient developed significant headaches. On September 25 he had reexploration of the posterior fossa craniotomy, evacuation of cerebellar clot, duraplasty with Dura-Guard enterocele, placement of epidural drain secondary to cerebral hemorrhage. Patient later became acutely hypoxic. CT of brain showed persistent edema with midline shift. Urine culture shows gram-negative rods and the patient was started on Rocephin. By October 07 the patient was extubated. On October 10 patient had a CSF leak from previous craniotomy site. He went back to the OR. He had a bur hole placed by Dr. Horvath. He was transferred back to the ICU placed on mechanical ventilation. CSF is growing yeast. Dr. Gibbons was consulted. On October 12 he was extubated. Care was transferred to hospitalist on October 13. Bladder cancer, metastatic with brain metastases -MRI of brain revealed that the left cerebral mass was 4.4 cm with vasogenic edema. Ventriculostomy management per neurosurgery. Status post epidural drain placement, bur hole placement. Status post chemotherapy. Continue seizure prophylaxis with Keppra. Still on Decadron. Ventriculitis, Lisa albicans Serratia, PSAE pneumonia Serratia bacteremia likely secondary to pneumonia -Status post 1 week of treatment, continue intrathecal amphotericin B, intravenous amphotericin B and Diflucan IV. Further intrathecal amphotericin B and imaging per infectious disease. Thrombocytopenia, anemia, leukopenia-status post platelet transfusion, platelet is now 48 from 31, hemoglobin is stable. Hematology following. Follow coagulation studies, fibrinogen is better. H IT negative. Liver ultrasound done, unremarkable. PT still 13.3. CHF, history of A. Flutter, hypertension-status post ablation by Dr. Mantilla , currently normal sinus rhythm, EF 25% as of 07/09. Nuclear stress test showed no ischemia. Continue Lopressor, Vasotec, hydralazine, cardiology following. Bilateral renal cysts 3.7 cm on the right and 2.9 cm on the left superior pole> > follow-up patient Pulmonary nodule-repeat CT scan in 6 months as outpatient. Hypokalemia-start electrolyte protocol. Hyperglycemia -start Levemir 6 units, sliding scale insulin. 4.5 hemoglobin A1c. Likely secondary to steroids. 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
[2017-10-27 15:04] LABS: INR 1.3 Ratio; Prothrombin Time 13.3 sec (9.8-11.6)
[2017-10-27] MEDS: Potassium Chlor 20 mEq Premix 20 MEQ/100 ML PIGGYBACK IV.SIG PRN ×3 (16:55→23:00)
--- NOTE | 2017-10-27 18:39 | P.PNID ---
Subjective Remarks: ID COVERAGE for Patient is a 52-year-old male, had surgery on a brain mass, and was found to have metastatic non-small cell carcinoma. Has recently been diagnosed to have Lisa ventriculitis, from a CSF October 10. Redo suboccipital craniectomy,C1 laminectomy, Duraplasty with repair of CSF leak on Oct 10, [address] CSF culture, October 10, October 16, and October 17 all with Lisa albicans Has been on amphotericin and fluconazole since October 11 Intrathecal M4 started yesterday Overnight events reviewed with RN No seizures. After CT brain yday Ampho IT was placed on hold till cleared by Neurosurgery. Dw : CSF collection today followed by Intrathecal Solumedrol followed by combination of Solumedrol and Ampho Intrathecal. No fever No rash No new issues Denies headache, nausea or vomiting, denies visual changes. Follows commands and talks,smiles Antibiotics: IV AMpho Intrathecal Ampho plus solumedrol IT. Fluconazole IV Lines: Lines ok Past Medical History: atrial flutter systolic heart failure likely chronic ejection fraction 25%, hypertension, hyperlipidemia bladder cancer status post removal with chemoradiation therapy 2016. ablation bladder surgery 2 yrs ago Allergies/Adverse Reactions: Allergies No Known Allergies Allergy (Unknown, Uncoded 07/08/17 00:15) Objective Vital Signs 10/26/17 20:00 10/27/17 00:00 10/27/17 04:00 Temperature 97.9 F 98.0 F 98.1 F Pulse Rate 91 H 78 72 Respiratory Rate 20 17 20 Blood Pressure 119/70 118/67 109/68 Pulse Oximetry 96 96 96 10/27/17 08:00 10/27/17 10:00 10/27/17 12:00 Temperature 97.8 F 98.6 F Pulse Rate 71 81 70 Respiratory Rate 18 21 Blood Pressure 104/68 Pulse Oximetry 89 L 98 10/27/17 14:00 10/27/17 16:00 Temperature 98.4 F Pulse Rate 69 61 Respiratory Rate 18 Blood Pressure 105/67 Pulse Oximetry 97 Intake & Output 10/26/17 10/27/17 10/27/17 18:59 06:59 18:59 Intake Total 1587 / 1587 1150 / 1150 0 / 0 Output Total 1200 / 1200 1035 / 1035 Balance 387 / 387 115 / 115 0 / 0 Intake: IV 820 / 820 1150 / 1150 0 / 0 Ambisome Inj 481.5 MG In D5W 320 / 320 Inj 320 ML @ 125 mls/hr IV.SIG Q24H KATHERINE Rx#:[id number] Diflucan 400 mg Premix Bag 400 400 / 400 400 / 400 ML @ 100 mls/hr IV.SIG Q24H KATHERINE Rx#:[id number] KCl 10 mEq Premix Inj 10 meq In 100 / 100 500 / 500 0 / 0 100 ml @ 100 mls/hr IV.SIG Q1H KATHERINE Rx#:[id number] NS Inj 250 ML @ 15 mls/hr IV. 250 / 250 SIG ONCE KATHERINE Rx#:[id number] Oral 480 / 480 Intake (Blood Product) Amt 287 / 287 Plt Pheresis B Leukoreduced 287 / 287 Unit [id number] Output: Urine 1200 / 1200 Stool 0 / 0 Urine Amount (Catheter) 1000 / 1000 Condom 1000 / 1000 Intracranial Drainage 35 / 35 Right Temporoparietal 35 / 35 Other: Date of Last Bowel Movement 10/24/17 10/24/17 10/24/17 # Bowel Movements 0 10/25/17 Unknown Shunt Fluid Gram Stain - Final 10/25/17 Unknown Shunt Fluid CSF Culture - Preliminary Yeast - ID to follow 10/25/17 Unknown Cerebral Spinal Fluid - Shunt Fluid Fungal Smear - Final No fungal elements seen 10/25/17 Unknown Cerebral Spinal Fluid - Shunt Fluid Fungal Culture - Pending 10/24/17 12:46 Shunt Fluid Gram Stain - Final 10/24/17 12:46 Shunt Fluid CSF Culture - Final No growth in 72 hours (aerobically and anaerobically ) Lab - Hematology Results 10/26/17 10/27/17 05:34 06:00 WBC 8.0 7.4 RBC 3.05 L 2.78 L Hgb 9.3 L 8.5 L Hct 27.6 L 25.2 L MCV 90.5 90.9 MCH 30.5 30.5 MCHC 33.7 33.6 RDW 21.5 H 21.2 H Plt Count 31 L D 48 L D MPV 9.3 8.9 Prelim Diff (Auto) Manual diff required Slide review pending Neut % (Auto) 90.7 H Lymph % (Auto) 7.1 L [place] % (Auto) 2.1 Eos % (Auto) 0.0 Baso % (Auto) 0.1 Neut # (Auto) 6.7 Lymph # (Auto) 0.5 L [place] # (Auto) 0.2 Eos # (Auto) 0.0 Baso # (Auto) 0.0 WBC Differential Manual diff final Manual diff final Seg Neuts % (Manual) 86 H 95 H Band Neuts % (Manual) 5 1 Lymphocytes % (Manual) 5 L 4 L Monocytes % (Manual) 2 Myelocytes % (Man) 2 H Abs Neuts (Manual) 7.4 7.1 Nucleated RBCs/100 WBC 1 H Differential Comment . . Platelet Estimate Low L Low L Platelet Morphology Normal Normal Polychromasia 2.4 H Tear Drop Cells 1+ H Ovalocytes 1+ H Lab - Chemistry Results 10/25/17 10/26/17 10/26/17 18:34 00:06 05:34 Sodium 148 H Potassium 2.4 L* 2.8 L* Chloride 114 H Carbon Dioxide 16.1 L Anion Gap 18 H BUN 37 H Creatinine 0.63 Estimated GFR Greater than 89 POC Glucose 231 H Random Glucose 181 H Calcium 8.4 L Phosphorus 2.6 Magnesium Total Bilirubin Direct Bilirubin Indirect Bilirubin AST ALT Alkaline Phosphatase Total Protein Albumin 2.4 L 10/26/17 10/26/17 10/26/17 12:47 13:39 13:39 Sodium Potassium 3.0 L Chloride Carbon Dioxide Anion Gap BUN Creatinine Estimated GFR POC Glucose 168 H Random Glucose Calcium Phosphorus Magnesium 2.3 Total Bilirubin Direct Bilirubin Indirect Bilirubin AST ALT Alkaline Phosphatase Total Protein Albumin 10/26/17 10/26/17 10/26/17 13:39 21:15 23:49 Sodium Potassium 2.5 L* Chloride Carbon Dioxide Anion Gap BUN Creatinine Estimated GFR POC Glucose 183 H Random Glucose Calcium Phosphorus Magnesium Total Bilirubin 0.8 Direct Bilirubin Less than 0.1 Indirect Bilirubin 0.7 AST 19 ALT 72 Alkaline Phosphatase 97 Total Protein 5.3 L Albumin 2.8 L 10/27/17 10/27/17 05:38 13:27 Sodium Potassium 2.9 L* Chloride Carbon Dioxide Anion Gap BUN Creatinine Estimated GFR POC Glucose 176 H Random Glucose Calcium Phosphorus Magnesium Total Bilirubin Direct Bilirubin Indirect Bilirubin AST ALT Alkaline Phosphatase Total Protein Albumin Imaging: ITS Impressions Chest X-Ray 10/23/17 00:00 CONCLUSION: The lungs are clear. Head CT 10/26/17 00:00 CONCLUSION: Slight interval increase in size of hemorrhage in the left paramedian posterior fossa. Liver Ultrasound 10/27/17 00:00 CONCLUSION: 1. Simple right renal cyst. 2. Otherwise normal examination of the abdomen. Physical Exam: Physical Exam CONSTITUTIONAL/GENERAL: Keeps eyes closed, but he follows commands. He answers some questions this is an adequately nourished patient, in no apparent distress. SKIN: No jaundice, rashes, or lesions. Warm and dry HEAD: Ventric in place with blood-tinged CSF . R parietal incision clean EYES: Extraocular motions intact. No scleral icterus. No injection or drainage. Fundi not examined. ENT: Nose without bleeding or purulent drainage. Moist mucosa CARDIOVASCULAR: Regular rate and rhythm without murmurs, gallops, or rubs. RESPIRATORY/CHEST: Symmetric, unlabored respirations. Clear to auscultation. Breath sounds equal bilaterally. No wheezes, rales, or rhonchi. GASTROINTESTINAL: Abdomen soft, non-tender, nondistended. No guarding. Bowel sounds present. Has an umbilical hernia GENITOURINARY: Without palpable bladder distension MUSCULOSKELETAL: Extremities without clubbing, cyanosis, or edema.. No calf tenderness. No mottling or clubbing. NEUROLOGICAL: Awake, follows commands. Right hand manager costing much stronger compared to the left PSYCHIATRIC: Cooperative LINE: No evidence of infection Assessment and Plan - Plan IMPRESSION Bladder cancer, metastatic with brain mets S/P neurosurgical procedure C albicans ventriculitis Serratia, PSAE PNA Serratia bacteremia : source is likley PNA line (PICC), vs PNA vs surgical site infection sp 1 week of treatment Thrombocytopenia PLAN Continue Ampho B Intrathecal zaida clinical Pharmacist Alpesh with RN Shahrzad he will place labels and instructions on syringes for dosing on Monday, Mon, Monday. 1. Solumedrol (Methylprednisone) Intrathecal 2. Intrathecal Ampho plus Intrathecal Solumedrol combo syringe. Continue IV ampho B Continue Diflucan IV. zaida Pharmacist Alpesh no stop dates at present time for IV Ampho, IV diflucan or Intrathecal dosing of Ampho plus Solumedrol. CSF from ventric on 10/25/2017 with growth of Lisa concerning for ventric being an ongoing source of infection. zaida Briceno and will again dw on Monday to change the ventric. Will need replacement of ventric as patient needs Intrathecal Amphotericin plus Solumedrol further dosing. CT Brain with no hydrocephalus. Will consider MRI brain next week on Monday lexis if repeat CSF from today is abnormal and growing Lisa. zaida Horvath he will change ventric next week. dw him on 10/27/2017 at 6:39 pm. Monitor progress. zaida RN Time spent in excess of 40 mins in coordinating care with MD, RN and Pharmacist. Critical thinking and decision making.
[2017-10-27] MEDS: WATER IT SCH ×3 (18:54→18:55)
[2017-10-27] MEDS: DEXTROSE 5% IT SCH ×3 (18:54→18:55)
[2017-10-27] MEDS: METHYLPREDNISOLONE SOD SUC IT SCH ×3 (18:54→18:55)
[2017-10-27] MEDS: [UNRECOGNIZED DRUG - OTHER] IT SCH (18:54)
[2017-10-27] MEDS: [UNRECOGNIZED DRUG - OTHER] IT SCH ×2 (18:55)
[2017-10-27] MEDS: Mirtazapine 15 MG Tablet PO SCH (20:23)
[2017-10-27] MEDS: Insulin Detemir Inj 1,000 UNIT/10 ML Vial SQ SCH (20:28)
[2017-10-27 21:11] LABS: Total Protein,CSF 61.4 mg/dL (15.0-45.0)
[2017-10-27 21:48] LABS: Lymphocytes, CSF 13 %; Monocytes,CSF 1 %; Neutrophils,CSF 86 %; RBC on Tube 1 16187 /mm3
[2017-10-28 06:14] LABS: Baso % (Auto) 0.1 % (0.0-2.0); Hematocrit 26.9 % (39.0-51.0); Lymph # (Auto) 0.4 th/mm3 (1.0-4.8); Lymph % (Auto) 5.5 % (9.0-44.0); Mean Corpuscular HGB Conc 33.5 % (32.0-36.0); Mean Corpuscular Hemoglobin 30.3 pg (27.0-34.0); Mean Corpuscular Volume 90.4 fL (80.0-100.0); Mean Platelet Volume 8.9 fL (7.0-11.0); Mono # (Auto) 0.1 th/mm3 (0.0-0.9); Mono % (Auto) 1.7 % (0.0-8.0); Neut # (Auto) 6.7 th/mm3 (1.8-7.7); Neut % (Auto) 92.7 % (16.0-70.0); Platelet Count 41 th/mm3 (150-450); Red Blood Count 2.97 mil/mm3 (4.50-5.90); Red Cell Distribution Width 21.3 % (11.6-17.2); White Blood Count 7.2 th/mm3 (4.0-11.0)
[2017-10-28 07:30] LABS: Lymphocytes 2 % (9-44); Tallied Nucleated RBC 3 (0-0)
[2017-10-28 07:31] LABS: Platelet Morphology Normal (Normal); Tear Drop Cells 1+
--- NOTE | 2017-10-28 08:37 | P.PNONC ---
Subjective Interval history: Afebrile Patient denies headache Denies any acute complaints Denies bleeding gums Per [employer], there has been no bleeding or oozing around ventriculostomy Objective Vital Signs/Intake & Output: Vital Signs 10/27/17 10:00 10/27/17 12:00 10/27/17 14:00 Temperature 98.6 F Pulse Rate 81 70 69 Respiratory Rate 21 Blood Pressure 104/68 Pulse Oximetry 98 10/27/17 16:00 10/27/17 18:00 10/27/17 20:00 Temperature 98.4 F 98.2 F Pulse Rate 61 78 79 Respiratory Rate 18 17 Blood Pressure 105/67 110/61 Pulse Oximetry 97 98 10/27/17 20:02 10/27/17 22:00 10/28/17 00:00 Temperature 97.9 F Pulse Rate 80 75 Respiratory Rate 17 Blood Pressure 123/78 Pulse Oximetry 98 96 10/28/17 02:00 10/28/17 04:00 10/28/17 06:00 Temperature 97.8 F Pulse Rate 61 75 66 Respiratory Rate 18 Blood Pressure 115/75 Pulse Oximetry 97 10/28/17 08:00 Temperature Pulse Rate Respiratory Rate Blood Pressure Pulse Oximetry 96 Intake & Output 10/27/17 10/28/17 10/28/17 18:59 06:59 18:59 Intake Total 450 / 450 400.8 / 400.8 Output Total 995 / 995 1000 / 1000 Balance -545 / -545 -599.2 / -599.2 Intake: IV 0 / 0 400.8 / 400.8 SoluMEDROL Inj 5 MG D5W Inj 0.8 0.8 / 0.8 ML In Bag/Syringe 1 EACH @ As Directed IT MoWeFr KATHERINE Rx#: [id number] Diflucan 400 mg Premix Bag 400 200 / 200 ML @ 100 mls/hr IV.SIG Q24H KATHERINE Rx#:[id number] KCl 10 mEq Premix Inj 10 meq In 0 / 0 100 ml @ 100 mls/hr IV.SIG Q1H KATHERINE Rx#:[id number] KCl 20 mEq Premix Inj 20 meq In 200 / 200 100 ml @ 50 mls/hr IV.SIG Q2H PRN Rx#:[id number] Oral 450 / 450 Output: Urine Amount (Catheter) 950 / 950 1000 / 1000 Condom 950 / 950 1000 / 1000 Intracranial Drainage 45 / 45 Right Temporoparietal 45 / 45 Other: Date of Last Bowel Movement 10/24/17 10/24/17 # Bowel Movements 0 Result Diagrams: 10/28/17 04:51 10/28/17 04:51 Laboratory Results: Laboratory Results - last 24 hr 10/27/17 10/27/17 10/27/17 13:27 13:27 13:27 WBC RBC Hgb Hct MCV MCH MCHC RDW Plt Count MPV Prelim Diff (Auto) Neut % (Auto) Lymph % (Auto) [place] % (Auto) Eos % (Auto) Baso % (Auto) Neut # (Auto) Lymph # (Auto) [place] # (Auto) Eos # (Auto) Baso # (Auto) WBC Differential Seg Neuts % (Manual) Lymphocytes % (Manual) Abs Neuts (Manual) Nucleated RBCs/100 WBC Differential Comment Platelet Estimate Platelet Morphology Tear Drop Cells PT 13.3 H INR 1.3 APTT 20.5 L Fibrinogen 97 L* Potassium 2.9 L* POC Glucose CSF Volume (1) CSF Supernat Color (1) CSF Gross Blood (1) CSF WBC (1) CSF RBC (1) CSF Neutrophils % CSF Lymphocytes % CSF Monocytes % CSF Chloride CSF Glucose CSF Total Protein 10/27/17 10/27/17 10/27/17 19:00 19:00 23:13 WBC RBC Hgb Hct MCV MCH MCHC RDW Plt Count MPV Prelim Diff (Auto) Neut % (Auto) Lymph % (Auto) [place] % (Auto) Eos % (Auto) Baso % (Auto) Neut # (Auto) Lymph # (Auto) [place] # (Auto) Eos # (Auto) Baso # (Auto) WBC Differential Seg Neuts % (Manual) Lymphocytes % (Manual) Abs Neuts (Manual) Nucleated RBCs/100 WBC Differential Comment Platelet Estimate Platelet Morphology Tear Drop Cells PT INR APTT Fibrinogen Potassium POC Glucose 176 H CSF Volume (1) 6.0 CSF Supernat Color (1) Xanthochromic A CSF Gross Blood (1) 3+ A CSF WBC (1) 72 H CSF RBC (1) 82639 H CSF Neutrophils % 86 CSF Lymphocytes % 13 CSF Monocytes % 1 CSF Chloride 139 H CSF Glucose 93 H CSF Total Protein 61.4 H 10/28/17 10/28/17 10/28/17 04:51 04:51 05:43 WBC 7.2 RBC 2.97 L Hgb 9.0 L Hct 26.9 L MCV 90.4 MCH 30.3 MCHC 33.5 RDW 21.3 H Plt Count 41 L MPV 8.9 Prelim Diff (Auto) Slide review pending Neut % (Auto) 92.7 H Lymph % (Auto) 5.5 L [place] % (Auto) 1.7 Eos % (Auto) 0.0 Baso % (Auto) 0.1 Neut # (Auto) 6.7 Lymph # (Auto) 0.4 L [place] # (Auto) 0.1 Eos # (Auto) 0.0 Baso # (Auto) 0.0 WBC Differential Manual diff final Seg Neuts % (Manual) 98 H Lymphocytes % (Manual) 2 L Abs Neuts (Manual) 7.1 Nucleated RBCs/100 WBC 3 H Differential Comment . Platelet Estimate Low L Platelet Morphology Normal Tear Drop Cells 1+ H PT INR APTT Fibrinogen Potassium 2.6 L* POC Glucose 148 H CSF Volume (1) CSF Supernat Color (1) CSF Gross Blood (1) CSF WBC (1) CSF RBC (1) CSF Neutrophils % CSF Lymphocytes % CSF Monocytes % CSF Chloride CSF Glucose CSF Total Protein Culture Results: Microbiology 10/27/17 19:00 Gram Stain - Final Lumbar Puncture CSF Culture - Preliminary No growth in 24 hours 10/27/17 20:38 Fungal Smear - Final Cerebral Spinal Fluid - Lumbar Puncture No fungal elements seen 10/25/17 Unknown Gram Stain - Final Shunt Fluid CSF Culture - Preliminary Yeast - ID to follow 10/25/17 Unknown Fungal Smear - Final Cerebral Spinal Fluid - Shunt Fluid No fungal elements seen 10/24/17 12:46 Gram Stain - Final Shunt Fluid CSF Culture - Final No growth in 72 hours (aerobically and anaerobically) Imaging Studies: Impressions Liver Ultrasound 10/27/17 00:00 CONCLUSION: 1. Simple right renal cyst. 2. Otherwise normal examination of the abdomen. Medications: Active Medications Generic Name Dose Route Start Last Admin Trade Name Freq PRN Reason Stop Dose Admin Al Hydroxide/Mg Hydroxide 30 ml 10/22/17 06:00 10/28/17 06:25 Milk Of Magnesia Liq PO 30 ml Q12H KATHERINE Administration Artificial Tears 1 drop 10/22/17 06:00 10/27/17 23:21 Tears Naturale Opth Drops EACH EYE 1 drop Q8HR KATHERINE Administration Dexamethasone Sodium Phosphate 3 mg 10/22/17 00:00 10/28/17 06:25 Decadron Inj IV.PUSH 3 mg Q6HR KATHERINE Administration Diphenhydramine HCl 25 mg 10/22/17 22:30 10/27/17 23:01 Benadryl Inj IV.PUSH 25 mg Q24H KATHERINE Administration Enalapril Maleate 5 mg 10/22/17 00:00 10/28/17 06:23 Vasotec PO Not Given Q12H KATHERINE Fluconazole 400 mls @ 100 mls/hr 10/23/17 17:00 10/27/17 19:02 Diflucan 400 Mg Premix Bag IV.SIG 100 mls/hr Q24H KATHERINE Infusion Amphotericin B 481.5 mg/ 320 mls @ 125 mls/hr 10/22/17 23:00 10/27/17 22:54 Dextrose IV.SIG 125 mls/hr Q24H KATHERINE Administration Potassium Chloride 20 meq in 100 mls @ 50 mls/hr 10/27/17 14:40 10/27/17 19: 02 Kcl 20 Meq Premix Inj IV.SIG Infused Q2H PRN Infusion For Potassium 2.8 - 3.2 mEq/L Methylprednisolone Sodium 0.925 mls @ 0 mls/hr 10/23/17 07:00 10/27/17 19:02 Succinate 5 mg/ Dextrose 0.8 IT 0.8 mls/hr ml/ Syringe/Bag MoWeFr KATHERINE Infusion As Directed Methylprednisolone Sodium 3.925 mls @ 0 mls/hr 10/23/17 07:00 10/27/17 18:54 Succinate 5 mg/ Dextrose 3.8 IT 3.8 mls/hr ml/ Amphotericin B 0.1 mg/ MoWeFr KATHERINE Administration Syringe/Bag As Directed Insulin Detemir 6 unit 10/27/17 21:00 10/27/17 20:28 Levemir Inj SQ 6 unit HS KATHERINE Administration Insulin Human Regular 0 units 10/22/17 14:00 10/27/17 23:25 Novolin R Supplemental Scale SQ 2 units Q6HR KATHERINE Administration Protocol Lactulose 30 ml 10/22/17 09:00 10/27/17 17:56 Lactulose Liq PO 30 ml TID KATHERINE Administration Levetiracetam 500 mg 10/22/17 09:00 10/27/17 20:22 Keppra PO 500 mg Q12HR KATHERINE Administration Metoprolol Tartrate 50 mg 10/22/17 09:00 10/27/17 20:23 Lopressor PO 50 mg Q12H KATHERINE Administration Mirtazapine 15 mg 10/22/17 21:00 10/27/17 20:23 Remeron PO 15 mg HS KATHERINE Administration Pantoprazole Sodium 40 mg 10/22/17 09:00 10/27/17 10:00 Protonix Inj IV.PUSH 40 mg DAILY KATHERINE Administration Pantoprazole Sodium 40 mg 10/22/17 09:00 10/27/17 10:00 Protonix PO 40 mg DAILY KATHERINE Administration Potassium Phosphate 2,000 mg 10/22/17 00:01 10/26/17 08:30 K-Phos Original PO 2,000 mg UNSCH PRN Administration SEE LABEL COMMENTS Senna/Docusate Sodium 2 tab 10/22/17 09:00 10/27/17 20:23 Dari-Colace PO 2 tab BID KATHERINE Administration Sodium Chloride 2 ml 10/22/17 09:00 10/28/17 06:23 Ns Flush IV.FLUSH Not Given BID KATHERINE Sodium Chloride 1 gm 10/22/17 09:00 10/27/17 18:56 Sodium Chloride PO 1 gm TID KATHERINE Administration Objective Remarks: GENERAL: Lethargic, middle-aged male resting in bed in no obvious distress SKIN: Warm and dry. HEAD: Normocephalic. Ventriculostomy to right side of scalp. No oozing noted. EYES: No injection or drainage. NECK: Supple, trachea midline. CARDIOVASCULAR: Regular rate and rhythm without murmurs. RESPIRATORY: Breath sounds equal bilaterally. No accessory muscle use. GASTROINTESTINAL: Abdomen soft, non-tender, nondistended. EXTREMITIES: No cyanosis, or edema. MUSCULOSKELETAL: Adequate muscle tone. NEUROLOGICAL: Nonverbal during exam. He nods his head yes and no appropriately to questions. Follows commands. PSYCHIATRIC: Patient seems depressed. He is answering questions via nodding his head yes or no. Assessment/Plan - Plan 52y/o male with metastatic urothelial carcinoma. He has had a brain mass with pathology showing metastatic non-small cell carcinoma. He is positive for Lisa infection in cerebrospinal fluid. Infectious disease is following. Hematology re-consulted for thrombocytopenia. 1. Thrombocytopenia differential includes medication side effects versus DIC due to infection. Expect platelet count to improve as infection clears if this is due to DIC. --HIT negative -- 2. Noted fibrinogen was low several days ago. We will recheck coags and fibrinogen today. If less than 100 we will transfuse 1 unit cryoprecipitate for recent bleeding around ventriculostomy site and thrombocytopenia. 3. Monitor CBC - Attending Statement The exam, history, and the medical decision-making described in the above note were completed with the assistance of the mid-level provider. I reviewed and agree with the findings presented. I attest that I had a [id number] encounter with the patient on the same day, and personally performed and documented my assessment and findings in the medical record. Patient denies any headache. No report of bleeding noted. Platelet count trended to 41,000, we will transfuse with 1 unit of platelet. Fibrinogen is slowly trending up. Continue to monitor platelet and coagulation study.
[2017-10-28] MEDS: Pantoprazole Inj 40 MG Vial IV.PUSH SCH (10:51)
[2017-10-28] MEDS: Metoprolol Tartrate 50 MG Tablet PO SCH ×2 (10:52→21:43)
[2017-10-28] MEDS: Sodium Chloride 1 GM Tablet PO SCH ×3 (10:52→17:05)
[2017-10-28] MEDS: levETIRAcetam 500 MG Tablet PO SCH ×2 (10:52→21:43)
[2017-10-28] MEDS: Senna/Docusate Sodium 8.6/50 MG Tablet PO SCH ×2 (10:54→21:43)
[2017-10-28] MEDS: Potassium Chlor 20 mEq Premix 20 MEQ/100 ML PIGGYBACK IV.SIG PRN ×3 (10:58→15:16)
[2017-10-28 11:43] LABS: Activated Partial Thrombo Time 17.8 sec (24.3-30.1)
[2017-10-28] MEDS: Insulin NovoLIN Regular Correctional Sugar Inj SQ SCH ×2 (12:00→18:30)
[2017-10-28] MEDS ORDERED: Sodium Chlor 0.9% Inj 250 ML IV.SIG ONE (13:00)
--- NOTE | 2017-10-28 13:13 | P.PNIM ---
Subjective Interval history: No overnight events. No bleeding per ventriculostomy site. Discussed with RN. Patient no new complaints, affect flat, awake. Denies any headache. No new neurologic deficits. Physical Exam Vital signs: Vital Signs 10/27/17 14:00 10/27/17 16:00 10/27/17 18:00 Temperature 98.4 F Pulse Rate 69 61 78 Respiratory Rate 18 Blood Pressure 105/67 Pulse Oximetry 97 10/27/17 20:00 10/27/17 20:02 10/27/17 22:00 Temperature 98.2 F Pulse Rate 79 80 Respiratory Rate 17 Blood Pressure 110/61 Pulse Oximetry 98 98 10/28/17 00:00 10/28/17 02:00 10/28/17 04:00 Temperature 97.9 F 97.8 F Pulse Rate 75 61 75 Respiratory Rate 17 18 Blood Pressure 123/78 115/75 Pulse Oximetry 96 97 10/28/17 06:00 10/28/17 08:00 10/28/17 12:00 Temperature 97.7 F Pulse Rate 66 68 Respiratory Rate 18 18 Blood Pressure 109/67 Pulse Oximetry 96 Intake & Output 10/27/17 10/28/17 10/28/17 18:59 06:59 18:59 Intake Total 450 / 450 400.8 / 400.8 Output Total 995 / 995 1000 / 1000 Balance -545 / -545 -599.2 / -599.2 Intake: IV 0 / 0 400.8 / 400.8 SoluMEDROL Inj 5 MG D5W Inj 0.8 0.8 / 0.8 ML In Bag/Syringe 1 EACH @ As Directed IT MoWeFr KATHERINE Rx#: [id number] Diflucan 400 mg Premix Bag 400 200 / 200 ML @ 100 mls/hr IV.SIG Q24H KATHERINE Rx#:[id number] KCl 10 mEq Premix Inj 10 meq In 0 / 0 100 ml @ 100 mls/hr IV.SIG Q1H KATHERINE Rx#:[id number] KCl 20 mEq Premix Inj 20 meq In 200 / 200 100 ml @ 50 mls/hr IV.SIG Q2H PRN Rx#:[id number] Oral 450 / 450 Output: Urine Amount (Catheter) 950 / 950 1000 / 1000 Condom 950 / 950 1000 / 1000 Intracranial Drainage 45 / 45 Right Temporoparietal 45 / 45 Other: Date of Last Bowel Movement 10/24/17 10/24/17 10/24/17 # Bowel Movements 0 Narrative: Not in distress Ventriculostomy in place, no bleeding Pupils equal reactive to light, pink conjunctivae Regular rate and rhythm, no murmurs Clear breath sounds, poor effort Abdomen soft nontender Alert, awake, oriented to self, place and month. Positive for left-sided weakness, about 4/5 compared to the right. - Urinary Catheter Management Condom Cath placed during this visit: no Results - Labs CBC & Chem 7: 10/28/17 04:51 10/28/17 04:51 Laboratory Results - last 24 hr 10/27/17 10/27/17 10/27/17 13:27 13:27 13:27 WBC RBC Hgb Hct MCV MCH MCHC RDW Plt Count MPV Prelim Diff (Auto) Neut % (Auto) Lymph % (Auto) [place] % (Auto) Eos % (Auto) Baso % (Auto) Neut # (Auto) Lymph # (Auto) [place] # (Auto) Eos # (Auto) Baso # (Auto) WBC Differential Seg Neuts % (Manual) Lymphocytes % (Manual) Abs Neuts (Manual) Nucleated RBCs/100 WBC Differential Comment Platelet Estimate Platelet Morphology Tear Drop Cells PT 13.3 H INR 1.3 APTT 20.5 L Fibrinogen 97 L* Potassium 2.9 L* POC Glucose CSF Volume (1) CSF Supernat Color (1) CSF Gross Blood (1) CSF WBC (1) CSF RBC (1) CSF Neutrophils % CSF Lymphocytes % CSF Monocytes % CSF Chloride CSF Glucose CSF Total Protein Bld Prod Order Comment 10/27/17 10/27/17 10/27/17 19:00 19:00 23:13 WBC RBC Hgb Hct MCV MCH MCHC RDW Plt Count MPV Prelim Diff (Auto) Neut % (Auto) Lymph % (Auto) [place] % (Auto) Eos % (Auto) Baso % (Auto) Neut # (Auto) Lymph # (Auto) [place] # (Auto) Eos # (Auto) Baso # (Auto) WBC Differential Seg Neuts % (Manual) Lymphocytes % (Manual) Abs Neuts (Manual) Nucleated RBCs/100 WBC Differential Comment Platelet Estimate Platelet Morphology Tear Drop Cells PT INR APTT Fibrinogen Potassium POC Glucose 176 H CSF Volume (1) 6.0 CSF Supernat Color (1) Xanthochromic A CSF Gross Blood (1) 3+ A CSF WBC (1) 72 H CSF RBC (1) 39052 H CSF Neutrophils % 86 CSF Lymphocytes % 13 CSF Monocytes % 1 CSF Chloride 139 H CSF Glucose 93 H CSF Total Protein 61.4 H Bld Prod Order Comment 10/28/17 10/28/17 10/28/17 04:51 04:51 05:43 WBC 7.2 RBC 2.97 L Hgb 9.0 L Hct 26.9 L MCV 90.4 MCH 30.3 MCHC 33.5 RDW 21.3 H Plt Count 41 L MPV 8.9 Prelim Diff (Auto) Slide review pending Neut % (Auto) 92.7 H Lymph % (Auto) 5.5 L [place] % (Auto) 1.7 Eos % (Auto) 0.0 Baso % (Auto) 0.1 Neut # (Auto) 6.7 Lymph # (Auto) 0.4 L [place] # (Auto) 0.1 Eos # (Auto) 0.0 Baso # (Auto) 0.0 WBC Differential Manual diff final Seg Neuts % (Manual) 98 H Lymphocytes % (Manual) 2 L Abs Neuts (Manual) 7.1 Nucleated RBCs/100 WBC 3 H Differential Comment . Platelet Estimate Low L Platelet Morphology Normal Tear Drop Cells 1+ H PT INR APTT Fibrinogen Potassium 2.6 L* POC Glucose 148 H CSF Volume (1) CSF Supernat Color (1) CSF Gross Blood (1) CSF WBC (1) CSF RBC (1) CSF Neutrophils % CSF Lymphocytes % CSF Monocytes % CSF Chloride CSF Glucose CSF Total Protein Bld Prod Order Comment 10/28/17 10/28/17 10/28/17 10:15 12:16 12:48 WBC RBC Hgb Hct MCV MCH MCHC RDW Plt Count MPV Prelim Diff (Auto) Neut % (Auto) Lymph % (Auto) [place] % (Auto) Eos % (Auto) Baso % (Auto) Neut # (Auto) Lymph # (Auto) [place] # (Auto) Eos # (Auto) Baso # (Auto) WBC Differential Seg Neuts % (Manual) Lymphocytes % (Manual) Abs Neuts (Manual) Nucleated RBCs/100 WBC Differential Comment Platelet Estimate Platelet Morphology Tear Drop Cells PT INR APTT 17.8 L Fibrinogen 100 L Potassium POC Glucose 146 H CSF Volume (1) CSF Supernat Color (1) CSF Gross Blood (1) CSF WBC (1) CSF RBC (1) CSF Neutrophils % CSF Lymphocytes % CSF Monocytes % CSF Chloride CSF Glucose CSF Total Protein Bld Prod Order Comment Microbiology 10/27/17 19:00 Lumbar Puncture Gram Stain - Final 10/27/17 19:00 Lumbar Puncture CSF Culture - Preliminary No growth in 24 hours 10/27/17 20:38 Cerebral Spinal Fluid - Lumbar Puncture Fungal Smear - Final No fungal elements seen 10/25/17 Unknown Shunt Fluid Gram Stain - Final 10/25/17 Unknown Shunt Fluid CSF Culture - Preliminary Yeast - ID to follow - Procedures 09/24>s/p stereotactic image guided suboccipital craniectomy, C1 laminectomy, microsurgical resection of metastatic carcinoma, duraplasty - 08/23>Right frontal Walt hole with placement of a ventriculostomy catheter removed 09/22 Left 4.4 cm cerebellar brain mass with vasogenic edema s/p EVD 09/29 for base of skull CSF leak vs. seroma.s/p [place] hole with ventriculostomy placement 10/10 for CSF leak Assessment and Plan - Plan This is a 52-year-old male who was admitted to [facility] on September 11, 2017 w/ h/o of atrial flutter status post ablation by Dr. Stokes, systolic heart failure with an ejection fraction of 25%, hypertension, hyperlipidemia, and bladder cancer with chemo radiation in 2015. He presented to the ED after he slipped and fell. CT was significant for a mass in the left posterior fossa. The tube was clamped. Patient developed significant headaches. On September 25 he had reexploration of the posterior fossa craniotomy, evacuation of cerebellar clot, duraplasty with Dura-Guard enterocele, placement of epidural drain secondary to cerebral hemorrhage. Patient later became acutely hypoxic. CT of brain showed persistent edema with midline shift. Urine culture shows gram-negative rods and the patient was started on Rocephin. By October 07 the patient was extubated. On October 10 patient had a CSF leak from previous craniotomy site. He went back to the OR. He had a bur hole placed by Dr. Horvath. He was transferred back to the ICU placed on mechanical ventilation. CSF is growing yeast. Dr. Gibbons was consulted. On October 12 he was extubated. Care was transferred to hospitalist on October 13. Bladder cancer, metastatic with brain metastases -MRI of brain revealed that the left cerebral mass was 4.4 cm with vasogenic edema. Ventriculostomy management per neurosurgery. Status post epidural drain placement, bur hole placement. Status post chemotherapy. Continue seizure prophylaxis with Keppra. Still on Decadron. Ventriculitis, Lisa albicans Serratia, PSAE pneumonia Serratia bacteremia likely secondary to pneumonia -Status post 1 week of treatment, continue intrathecal amphotericin B 3x/week and intrathecal solumedrol, intravenous amphotericin B and Diflucan IV. Further intrathecal amphotericin B and imaging per infectious disease, for ventriculostomy replacement next week. Thrombocytopenia, anemia, leukopenia-status post platelet transfusion, platelet is now 41, no bleeding. Hemoglobin is stable. Hematology following. Follow coagulation studies, fibrinogen is 100, transfuse if hemorrhage in his lower, HIT negative. Liver ultrasound done, unremarkable. Check CBC tomorrow. CHF, history of A. Flutter, hypertension-status post ablation by Dr. Mantilla , currently normal sinus rhythm, EF 25% as of 07/09. Nuclear stress test showed no ischemia. Continue Lopressor, Vasotec, hydralazine, cardiology following. Bilateral renal cysts 3.7 cm on the right and 2.9 cm on the left superior pole> > follow-up patient Pulmonary nodule-repeat CT scan in 6 months as outpatient. Hypokalemia-start electrolyte protocol. Potassium still low, replaced by nursing. Check magnesium. Hyperglycemia -start Levemir 6 units, sliding scale insulin. 4.5 hemoglobin A1c. Likely secondary to steroids. 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
[2017-10-28] MEDS: Artificial Tears Opth Drops 15 ML Bottle EACH EYE SCH ×2 (13:18→21:44)
--- NOTE | 2017-10-28 18:08 | P.PNID ---
Subjective Remarks: ID COVERAGE for Patient is a 52-year-old male, had surgery on a brain mass, and was found to have metastatic non-small cell carcinoma. Has recently been diagnosed to have Lisa ventriculitis, from a CSF October 10. Redo suboccipital craniectomy,C1 laminectomy, Duraplasty with repair of CSF leak on Oct 10, [address] CSF culture, October 10, October 16, and October 17 all with Lisa albicans Has been on amphotericin and fluconazole since October 11 Intrathecal M4 started yesterday Overnight events reviewed with RN No seizures. No fever No rash No new issues Reports headache mild in nature. No Nausea or vomiting, denies visual changes. Follows commands and talks,smiles Antibiotics: IV AMpho Intrathecal Ampho plus solumedrol IT. Fluconazole IV Lines: Lines ok Past Medical History: atrial flutter systolic heart failure likely chronic ejection fraction 25%, hypertension, hyperlipidemia bladder cancer status post removal with chemoradiation therapy 2016. ablation bladder surgery 2 yrs ago Allergies/Adverse Reactions: Allergies No Known Allergies Allergy (Unknown, Uncoded 07/08/17 00:15) Objective Vital Signs 10/27/17 20:00 10/27/17 20:02 10/27/17 22:00 Temperature 98.2 F Pulse Rate 79 80 Respiratory Rate 17 Blood Pressure 110/61 Pulse Oximetry 98 98 10/28/17 00:00 10/28/17 02:00 10/28/17 04:00 Temperature 97.9 F 97.8 F Pulse Rate 75 61 75 Respiratory Rate 17 18 Blood Pressure 123/78 115/75 Pulse Oximetry 96 97 10/28/17 06:00 10/28/17 08:00 10/28/17 10:00 Temperature 97.7 F Pulse Rate 66 68 74 Respiratory Rate 18 Blood Pressure 109/67 Pulse Oximetry 96 10/28/17 12:00 10/28/17 14:00 10/28/17 15:14 Temperature 99.0 F 98.0 F Pulse Rate 70 79 89 Respiratory Rate 13 23 Blood Pressure 104/72 100/62 Pulse Oximetry 10/28/17 15:30 Temperature 98 F Pulse Rate 82 Respiratory Rate 20 Blood Pressure 110/69 Pulse Oximetry 96 Intake & Output 10/27/17 10/28/17 10/28/17 18:59 06:59 18:59 Intake Total 450 / 450 400.8 / 400.8 200 / 200 Output Total 995 / 995 1000 / 1000 Balance -545 / -545 -599.2 / -599.2 200 / 200 Intake: IV 0 / 0 400.8 / 400.8 200 / 200 SoluMEDROL Inj 5 MG D5W Inj 0.8 0.8 / 0.8 ML In Bag/Syringe 1 EACH @ As Directed IT MoWeFr KATHERINE Rx#: [id number] Diflucan 400 mg Premix Bag 400 200 / 200 ML @ 100 mls/hr IV.SIG Q24H KATHERINE Rx#:[id number] KCl 10 mEq Premix Inj 10 meq In 0 / 0 100 ml @ 100 mls/hr IV.SIG Q1H KATHERINE Rx#:[id number] KCl 20 mEq Premix Inj 20 meq In 200 / 200 200 / 200 100 ml @ 50 mls/hr IV.SIG Q2H PRN Rx#:[id number] Oral 450 / 450 Intake (Blood Product) Amt 0 / 0 Plt Pheresis A Leukoreduced 0 / 0 Unit [id number] Output: Urine Amount (Catheter) 950 / 950 1000 / 1000 Condom 950 / 950 1000 / 1000 Intracranial Drainage 45 / 45 Right Temporoparietal 45 / 45 Other: Date of Last Bowel Movement 10/24/17 10/24/17 10/24/17 # Bowel Movements 0 10/25/17 Unknown Shunt Fluid Gram Stain - Final 10/25/17 Unknown Shunt Fluid CSF Culture - Final Lisa albicans 10/27/17 19:00 Lumbar Puncture Gram Stain - Final 10/27/17 19:00 Lumbar Puncture CSF Culture - Preliminary No growth in 24 hours 10/27/17 20:38 Cerebral Spinal Fluid - Lumbar Puncture Fungal Smear - Final No fungal elements seen 10/27/17 20:38 Cerebral Spinal Fluid - Lumbar Puncture Fungal Culture - Pending 10/25/17 Unknown Cerebral Spinal Fluid - Shunt Fluid Fungal Smear - Final No fungal elements seen 10/25/17 Unknown Cerebral Spinal Fluid - Shunt Fluid Fungal Culture - Pending 10/24/17 12:46 Shunt Fluid Gram Stain - Final 10/24/17 12:46 Shunt Fluid CSF Culture - Final No growth in 72 hours (aerobically and anaerobically ) Lab - Hematology Results 10/27/17 10/28/17 06:00 04:51 WBC 7.4 7.2 RBC 2.78 L 2.97 L Hgb 8.5 L 9.0 L Hct 25.2 L 26.9 L MCV 90.9 90.4 MCH 30.5 30.3 MCHC 33.6 33.5 RDW 21.2 H 21.3 H Plt Count 48 L D 41 L MPV 8.9 8.9 Prelim Diff (Auto) Slide review pending Slide review pending Neut % (Auto) 90.7 H 92.7 H Lymph % (Auto) 7.1 L 5.5 L [place] % (Auto) 2.1 1.7 Eos % (Auto) 0.0 0.0 Baso % (Auto) 0.1 0.1 Neut # (Auto) 6.7 6.7 Lymph # (Auto) 0.5 L 0.4 L [place] # (Auto) 0.2 0.1 Eos # (Auto) 0.0 0.0 Baso # (Auto) 0.0 0.0 WBC Differential Manual diff final Manual diff final Seg Neuts % (Manual) 95 H 98 H Band Neuts % (Manual) 1 Lymphocytes % (Manual) 4 L 2 L Abs Neuts (Manual) 7.1 7.1 Nucleated RBCs/100 WBC 1 H 3 H Differential Comment . . Platelet Estimate Low L Low L Platelet Morphology Normal Normal Tear Drop Cells 1+ H 1+ H Lab - Chemistry Results 10/26/17 10/26/17 10/27/17 21:15 23:49 05:38 Potassium 2.5 L* POC Glucose 183 H 176 H 10/27/17 10/27/17 10/28/17 13:27 23:13 04:51 Potassium 2.9 L* 2.6 L* POC Glucose 176 H 10/28/17 10/28/17 10/28/17 05:43 12:16 17:33 Potassium POC Glucose 148 H 146 H 175 H Imaging: ITS Impressions Chest X-Ray 10/23/17 00:00 CONCLUSION: The lungs are clear. Head CT 10/26/17 00:00 CONCLUSION: Slight interval increase in size of hemorrhage in the left paramedian posterior fossa. Liver Ultrasound 10/27/17 00:00 CONCLUSION: 1. Simple right renal cyst. 2. Otherwise normal examination of the abdomen. Physical Exam: Physical Exam CONSTITUTIONAL/GENERAL: Keeps eyes closed, but he follows commands. He answers some questions this is an adequately nourished patient, in no apparent distress. SKIN: No jaundice, rashes, or lesions. Warm and dry HEAD: Ventric in place with blood-tinged CSF . R parietal incision clean EYES: Extraocular motions intact. No scleral icterus. No injection or drainage. Fundi not examined. ENT: Nose without bleeding or purulent drainage. Moist mucosa CARDIOVASCULAR: Regular rate and rhythm without murmurs, gallops, or rubs. RESPIRATORY/CHEST: Symmetric, unlabored respirations. Clear to auscultation. Breath sounds equal bilaterally. No wheezes, rales, or rhonchi. GASTROINTESTINAL: Abdomen soft, non-tender, nondistended. No guarding. Bowel sounds present. Has an umbilical hernia GENITOURINARY: Without palpable bladder distension MUSCULOSKELETAL: Extremities without clubbing, cyanosis, or edema.. No calf tenderness. No mottling or clubbing. NEUROLOGICAL: Awake, follows commands. 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 1. Solumedrol (Methylprednisone) Intrathecal 2. Intrathecal Ampho plus Intrathecal Solumedrol combo syringe. Continue IV ampho B Continue Diflucan IV. zaida Pharmacist Alpesh no stop dates at present time for IV Ampho, IV diflucan or Intrathecal dosing of Ampho plus Solumedrol. CSF from ventric on 10/25/2017 with growth of Lisa concerning for ventric being an ongoing source of infection. zaida Briceno and will again zaida Noe on Monday to change the ventric. Will need replacement of ventric as patient needs Intrathecal Amphotericin plus Solumedrol further dosing. CT Brain with no hydrocephalus. Will consider MRI brain next week on Monday lexis if repeat CSF from today is abnormal and growing Lisa. zaida Horvath he will change ventric next week. Monitor progress. zaida [id number]
[2017-10-28] MEDS: Mirtazapine 15 MG Tablet PO SCH (21:43)
[2017-10-28] MEDS: Insulin Detemir Inj 1,000 UNIT/10 ML Vial SQ SCH (21:44)
[2017-10-29] MEDS: DEXTROSE 5% IV.SIG SCH ×4 (00:25→22:19)
[2017-10-29] MEDS: AMPHOTERICIN B LIPOSOMAL IV.SIG SCH ×4 (00:25→22:19)
[2017-10-29] MEDS: Potassium Chloride 25 MEQ Effervescent Tablet PO PRN (00:25)
[2017-10-29] MEDS: WATER IV.SIG SCH ×4 (00:25→22:19)
[2017-10-29] MEDS: Insulin NovoLIN Regular Correctional Sugar Inj SQ SCH ×5 (00:28→18:36)
[2017-10-29] MEDS: Potassium Chlor 20 mEq Premix 20 MEQ/100 ML PIGGYBACK IV.SIG SCH ×4 (01:10→06:58)
[2017-10-29] MEDS: Artificial Tears Opth Drops 15 ML Bottle EACH EYE SCH ×4 (05:52→21:01)
[2017-10-29 07:16] LABS: Baso % (Auto) 0.1 % (0.0-2.0); Hematocrit 26.1 % (39.0-51.0); Hemoglobin 8.8 gm/dL (13.0-17.0); Lymph # (Auto) 0.4 th/mm3 (1.0-4.8); Lymph % (Auto) 6.6 % (9.0-44.0); Mean Corpuscular HGB Conc 33.7 % (32.0-36.0); Mean Corpuscular Hemoglobin 30.6 pg (27.0-34.0); Mean Corpuscular Volume 90.7 fL (80.0-100.0); Mean Platelet Volume 8.8 fL (7.0-11.0); Mono # (Auto) 0.1 th/mm3 (0.0-0.9); Mono % (Auto) 1.8 % (0.0-8.0); Neut # (Auto) 5.3 th/mm3 (1.8-7.7); Neut % (Auto) 91.5 % (16.0-70.0); Platelet Count 61 th/mm3 (150-450); Red Blood Count 2.88 mil/mm3 (4.50-5.90); Red Cell Distribution Width 21.6 % (11.6-17.2); White Blood Count 5.8 th/mm3 (4.0-11.0)
[2017-10-29 07:36] LABS: Anion Gap 15 meq/L (5-15); Blood Urea Nitrogen 38 mg/dL (7-18); Calcium 8.5 mg/dL (8.5-10.1); Carbon Dioxide 17.2 meq/L (21.0-32.0); Chloride 118 meq/L (98-107); Glomerular Filtration Rate Greater Than 89 mL/min (>89); Glucose,Random 197 mg/dL (74-106); Magnesium 1.7 mg/dL (1.5-2.5); Potassium 3.5 meq/L (3.5-5.1); Sodium 150 meq/L (136-145)
[2017-10-29 07:42] LABS: INR 1.2 Ratio; Prothrombin Time 12.6 sec (9.8-11.6)
[2017-10-29 07:43] LABS: Activated Partial Thrombo Time 20.3 sec (24.3-30.1)
[2017-10-29] MEDS: Sodium Chloride 1 GM Tablet PO SCH ×3 (09:41→18:36)
[2017-10-29] MEDS: levETIRAcetam 500 MG Tablet PO SCH ×2 (09:41→21:00)
[2017-10-29] MEDS: Metoprolol Tartrate 50 MG Tablet PO SCH ×2 (09:42→21:01)
[2017-10-29] MEDS: Senna/Docusate Sodium 8.6/50 MG Tablet PO SCH ×2 (09:42→21:00)
[2017-10-29] MEDS: Pantoprazole Inj 40 MG Vial IV.PUSH SCH (09:43)
--- NOTE | 2017-10-29 09:58 | P.PNONC ---
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 there is no obvious bleeding I explained to patient that his blood counts looked good today and he reports "cool." Objective Vital Signs/Intake & Output: Vital Signs 10/28/17 10:00 10/28/17 12:00 10/28/17 14:00 Temperature 99.0 F Pulse Rate 74 70 79 Respiratory Rate 13 Blood Pressure 104/72 Pulse Oximetry 10/28/17 15:14 10/28/17 15:30 10/28/17 16:00 Temperature 98.0 F 98 F 98 F Pulse Rate 89 82 72 Respiratory Rate 23 20 23 Blood Pressure 100/62 110/69 117/68 Pulse Oximetry 96 95 10/28/17 18:00 10/28/17 18:47 10/28/17 20:00 Temperature 98 F 98.5 F Pulse Rate 80 72 88 Respiratory Rate 23 17 Blood Pressure 117/68 134/78 Pulse Oximetry 97 10/28/17 21:43 10/28/17 22:00 10/29/17 00:00 Temperature 98.7 F Pulse Rate 83 58 L Respiratory Rate 18 15 Blood Pressure 77/51 L Pulse Oximetry 100 100 10/29/17 01:00 10/29/17 02:00 10/29/17 04:00 Temperature 97.5 F L Pulse Rate 56 L 59 L Respiratory Rate 14 Blood Pressure 95/52 L 84/54 L Pulse Oximetry 100 10/29/17 06:00 Temperature Pulse Rate 53 L Respiratory Rate Blood Pressure Pulse Oximetry Intake & Output 10/28/17 10/29/17 10/29/17 18:59 06:59 18:59 Intake Total 733 / 733 1060 / 1060 200 / 200 Output Total 1425 / 1425 1010 / 1010 Balance -692 / -692 50 / 50 200 / 200 Weight 201 lb 4.513 oz Intake: IV 300 / 300 820 / 820 200 / 200 SoluMEDROL Inj 5 MG D5W Inj 3.8 0 / 0 ML Amphotericin B Conv. Inj 0. 1 MG In Bag/Syringe 1 EACH @ As Directed IT MoWeFr KATHERINE Rx#: [id number] SoluMEDROL Inj 5 MG D5W Inj 0.8 0 / 0 ML In Bag/Syringe 1 EACH @ As Directed IT [facility]We[facility] KATHERINE Rx#: [id number] Ambisome Inj 481.5 MG In D5W 320 / 320 Inj 320 ML @ 125 mls/hr IV.SIG Q24H KATHERINE Rx#:[id number] Diflucan 400 mg Premix Bag 400 200 / 200 ML @ 100 mls/hr IV.SIG Q24H KATHERINE Rx#:[id number] KCl 20 mEq Premix Inj 20 meq In 200 / 200 300 / 300 100 ml @ 50 mls/hr IV.SIG Q2H KATHERINE Rx#:[id number] Oral 240 / 240 240 / 240 Intake (Blood Product) Amt Plt Pheresis A Leukoreduced Unit [id number] Output: Urine 1425 / 1425 Stool 0 / 0 Urine Amount (Catheter) 1000 / 1000 Condom 1000 / 1000 Intracranial Drainage Right Temporoparietal Other: Date of Last Bowel Movement 10/24/17 10/27/17 # Bowel Movements 0 Result Diagrams: 10/29/17 06:10 10/29/17 06:10 Laboratory Results: Laboratory Results - last 24 hr 10/28/17 10/28/17 10/28/17 10:15 12:16 12:48 WBC RBC Hgb Hct MCV MCH MCHC RDW Plt Count MPV Prelim Diff (Auto) Neut % (Auto) Lymph % (Auto) [place] % (Auto) Eos % (Auto) Baso % (Auto) Neut # (Auto) Lymph # (Auto) [place] # (Auto) Eos # (Auto) Baso # (Auto) Differential Comment PT INR APTT 17.8 L Fibrinogen 100 L Sodium Potassium Chloride Carbon Dioxide Anion Gap BUN Creatinine Estimated GFR POC Glucose 146 H Random Glucose Calcium Magnesium Bld Prod Order Comment 10/28/17 10/28/17 10/28/17 17:33 23:30 23:56 WBC RBC Hgb Hct MCV MCH MCHC RDW Plt Count MPV Prelim Diff (Auto) Neut % (Auto) Lymph % (Auto) [place] % (Auto) Eos % (Auto) Baso % (Auto) Neut # (Auto) Lymph # (Auto) [place] # (Auto) Eos # (Auto) Baso # (Auto) Differential Comment PT INR APTT Fibrinogen Sodium Potassium 2.6 L* Chloride Carbon Dioxide Anion Gap BUN Creatinine Estimated GFR POC Glucose 175 H 195 H Random Glucose Calcium Magnesium Bld Prod Order Comment 10/29/17 10/29/17 10/29/17 05:42 06:10 06:10 WBC 5.8 RBC 2.88 L Hgb 8.8 L Hct 26.1 L MCV 90.7 MCH 30.6 MCHC 33.7 RDW 21.6 H Plt Count 61 L D MPV 8.8 Prelim Diff (Auto) Slide review pending Neut % (Auto) 91.5 H Lymph % (Auto) 6.6 L [place] % (Auto) 1.8 Eos % (Auto) 0.0 Baso % (Auto) 0.1 Neut # (Auto) 5.3 Lymph # (Auto) 0.4 L [place] # (Auto) 0.1 Eos # (Auto) 0.0 Baso # (Auto) 0.0 Differential Comment . PT INR APTT Fibrinogen Sodium 150 H Potassium 3.5 D Chloride 118 H Carbon Dioxide 17.2 L Anion Gap 15 BUN 38 H Creatinine 0.69 Estimated GFR Greater than 89 POC Glucose 256 H Random Glucose 197 H Calcium 8.5 Magnesium 1.7 Bld Prod Order Comment 10/29/17 06:10 WBC RBC Hgb Hct MCV MCH MCHC RDW Plt Count MPV Prelim Diff (Auto) Neut % (Auto) Lymph % (Auto) [place] % (Auto) Eos % (Auto) Baso % (Auto) Neut # (Auto) Lymph # (Auto) [place] # (Auto) Eos # (Auto) Baso # (Auto) Differential Comment PT 12.6 H INR 1.2 APTT 20.3 L Fibrinogen 113 L Sodium Potassium Chloride Carbon Dioxide Anion Gap BUN Creatinine Estimated GFR POC Glucose Random Glucose Calcium Magnesium Bld Prod Order Comment Culture Results: Microbiology 10/27/17 19:00 Gram Stain - Final Lumbar Puncture CSF Culture - Preliminary Yeast - ID to follow 10/25/17 Unknown Gram Stain - Final Shunt Fluid CSF Culture - Final Lisa albicans 10/27/17 20:38 Fungal Smear - Final Cerebral Spinal Fluid - Lumbar Puncture No fungal elements seen 10/25/17 Unknown Fungal Smear - Final Cerebral Spinal Fluid - Shunt Fluid No fungal elements seen 10/24/17 12:46 Gram Stain - Final Shunt Fluid CSF Culture - Final No growth in 72 hours (aerobically and anaerobically) Medications: Active Medications Generic Name Dose Route Start Last Admin Trade Name Freq PRN Reason Stop Dose Admin Hydrocodone Bitart/Acetaminophen 1 tab 10/22/17 00:01 10/28/17 17:14 [place] 10/325 PO 1 tab Q4H PRN Administration PAIN SCALE 1-5 Hydrocodone Bitart/Acetaminophen 2 tab 10/22/17 00:00 10/28/17 21:43 [place] 10/325 PO 2 tab Q4H PRN Administration PAIN 6-10 Al Hydroxide/Mg Hydroxide 30 ml 10/22/17 06:00 10/29/17 05:52 Milk Of Magnesia Liq PO Not Given Q12H KATHERINE Artificial Tears 1 drop 10/22/17 06:00 10/29/17 07:39 Tears Naturale Opth Drops EACH EYE Not Given Q8HR KATHERINE Dexamethasone Sodium Phosphate 3 mg 10/22/17 00:00 10/29/17 05:51 Decadron Inj IV.PUSH 3 mg Q6HR KATHERINE Administration Diphenhydramine HCl 25 mg 10/22/17 22:30 10/28/17 21:45 Benadryl Inj IV.PUSH 25 mg Q24H KATHERINE Administration Enalapril Maleate 5 mg 10/22/17 00:00 10/29/17 00:29 Vasotec PO Not Given Q12H KATHERINE Fluconazole 400 mls @ 100 mls/hr 10/23/17 17:00 10/29/17 07:40 Diflucan 400 Mg Premix Bag IV.SIG Not Given Q24H KATHERINE Amphotericin B 481.5 mg/ 320 mls @ 125 mls/hr 10/22/17 23:00 10/29/17 02:47 Dextrose IV.SIG Infused Q24H KATHERINE Infusion Methylprednisolone Sodium 0.925 mls @ 0 mls/hr 10/23/17 07:00 10/29/17 07:47 Succinate 5 mg/ Dextrose 0.8 IT Infused ml/ Syringe/Bag MoWeFr KATHERINE Infusion As Directed Methylprednisolone Sodium 3.925 mls @ 0 mls/hr 10/23/17 07:00 10/29/17 07:46 Succinate 5 mg/ Dextrose 3.8 IT 0 mls/hr ml/ Amphotericin B 0.1 mg/ MoWeFr KATHERINE Infusion Syringe/Bag As Directed Insulin Detemir 6 unit 10/27/17 21:00 10/28/17 21:44 Levemir Inj SQ 6 unit HS KATHERINE Administration Insulin Human Regular 0 units 10/22/17 14:00 10/29/17 07:39 Novolin R Supplemental Scale SQ Not Given Q6HR [facility] Protocol Lactulose 30 ml 10/22/17 09:00 10/28/17 17:43 Lactulose Liq PO Not Given TID KATHERINE Levetiracetam 500 mg 10/22/17 09:00 10/28/17 21:43 Keppra PO 500 mg Q12HR KATHERINE Administration Metoprolol Tartrate 50 mg 10/22/17 09:00 10/28/17 21:43 Lopressor PO 50 mg Q12H KATHERINE Administration Mirtazapine 15 mg 10/22/17 21:00 10/28/17 21:43 Remeron PO 15 mg HS KATHERINE Administration Pantoprazole Sodium 40 mg 10/22/17 09:00 10/28/17 10:51 Protonix Inj IV.PUSH 40 mg DAILY KATHERINE Administration Pantoprazole Sodium 40 mg 10/22/17 09:00 10/28/17 10:54 Protonix PO Not Given DAILY KATHERINE Potassium Bicarb/Potassium Chloride 50 meq 10/27/17 14:40 10/29/17 00:25 K-Lyte Cl Eff PO 50 meq UNSCH PRN Administration For Potassium 3.3 - 3.5 mEq/L Potassium Phosphate 2,000 mg 10/22/17 00:01 10/26/17 08:30 K-Phos Original PO 2,000 mg UNSCH PRN Administration SEE LABEL COMMENTS Senna/Docusate Sodium 2 tab 10/22/17 09:00 10/28/17 21:43 Dari-Colace PO 2 tab BID KATHERINE Administration Sodium Chloride 2 ml 10/22/17 09:00 10/28/17 21:45 Ns Flush IV.FLUSH 2 ml BID KATHERINE Administration Sodium Chloride 1 gm 10/22/17 09:00 10/28/17 17:05 Sodium Chloride PO 1 gm TID KATHERINE Administration Objective Remarks: GENERAL: Lethargic, middle-aged male resting in bed in no obvious distress SKIN: Warm and dry. HEAD: Normocephalic. Ventriculostomy to right side of scalp. No oozing noted. EYES: No injection or drainage. NECK: Supple, trachea midline. CARDIOVASCULAR: Regular rate and rhythm without murmurs. RESPIRATORY: Breath sounds equal bilaterally. No accessory muscle use. GASTROINTESTINAL: Abdomen soft, non-tender, nondistended. EXTREMITIES: No cyanosis, or edema. MUSCULOSKELETAL: Adequate muscle tone. NEUROLOGICAL: When I touched his L foot, he appeared to have fasciculations. Lethargic. Follows commands. PSYCHIATRIC: Patient seems depressed. He is answering questions via nodding his head yes or no. Assessment/Plan - Plan 52y/o male with metastatic urothelial carcinoma. He has had a brain mass with pathology showing metastatic non-small cell carcinoma. He is positive for Lisa infection in cerebrospinal fluid. Infectious disease is following. Hematology re-consulted for thrombocytopenia. 1. Thrombocytopenia differential includes medication side effects versus DIC due to infection. Expect platelet count to improve as infection clears if this is due to DIC. Pt is having ventriculostomy changed out likely tomorrow by Dr Horvath. 2. Continue to monitor Coags, CBC. - Attending Statement The exam, history, and the medical decision-making described in the above note were completed with the assistance of the mid-level provider. I reviewed and agree with the findings presented. I attest that I had a [id number] encounter with the patient on the same day, and personally performed and documented my assessment and findings in the medical record. Patient denies any headache. No report of bleeding. The platelet count trended up to 61,000 from 41,000 with transfusion. Fibrinogen also trended up to 113. Continue to monitor.
[2017-10-29 10:37] LABS: Polychromasia 2.2 % (0.0-1.9)
[2017-10-29 10:38] LABS: Ovalocytes 1+; Platelet Morphology Normal (Normal)
--- NOTE | 2017-10-29 12:32 | P.PNIM ---
Subjective Interval history: Mr. Clinton has no acute changes today. No complaints. He has been listless for a while. An option for antidepressants is discussed, but he has no consent on this today. He is willing to get in a chair today. Physical Exam Vital signs: Vital Signs 10/28/17 14:00 10/28/17 15:14 10/28/17 15:30 Temperature 98.0 F 98 F Pulse Rate 79 89 82 Respiratory Rate 23 20 Blood Pressure 100/62 110/69 Pulse Oximetry 96 10/28/17 16:00 10/28/17 18:00 10/28/17 18:47 Temperature 98 F 98 F Pulse Rate 72 80 72 Respiratory Rate 23 23 Blood Pressure 117/68 117/68 Pulse Oximetry 95 10/28/17 20:00 10/28/17 21:43 10/28/17 22:00 Temperature 98.5 F Pulse Rate 88 83 Respiratory Rate 17 18 Blood Pressure 134/78 Pulse Oximetry 97 100 10/29/17 00:00 10/29/17 01:00 10/29/17 02:00 Temperature 98.7 F Pulse Rate 58 L 56 L Respiratory Rate 15 Blood Pressure 77/51 L 95/52 L Pulse Oximetry 100 10/29/17 04:00 10/29/17 06:00 Temperature 97.5 F L Pulse Rate 59 L 53 L Respiratory Rate 14 Blood Pressure 84/54 L Pulse Oximetry 100 Intake & Output 10/28/17 10/29/17 10/29/17 18:59 06:59 18:59 Intake Total 733 / 733 1060 / 1060 550 / 550 Output Total 1425 / 1425 1010 / 1010 Balance -692 / -692 50 / 50 550 / 550 Weight 91.3 kg Intake: IV 300 / 300 820 / 820 550 / 550 SoluMEDROL Inj 5 MG D5W Inj 3.8 0 / 0 ML Amphotericin B Conv. Inj 0. 1 MG In Bag/Syringe 1 EACH @ As Directed IT [facility] KATHERINE Rx#: [id number] SoluMEDROL Inj 5 MG D5W Inj 0.8 0 / 0 ML In Bag/Syringe 1 EACH @ As Directed IT [facility]We[facility] KATHERINE Rx#: [id number] Ambisome Inj 481.5 MG In D5W 320 / 320 Inj 320 ML @ 125 mls/hr IV.SIG Q24H KATHERINE Rx#:[id number] Diflucan 400 mg Premix Bag 400 200 / 200 ML @ 100 mls/hr IV.SIG Q24H KATHERINE Rx#:[id number] KCl 20 mEq Premix Inj 20 meq In 200 / 200 300 / 300 100 / 100 100 ml @ 50 mls/hr IV.SIG Q2H KATHERINE Rx#:[id number] NS Inj 250 ML @ 15 mls/hr IV. 250 / 250 SIG ONCE ONE Rx#:[id number] Oral 240 / 240 240 / 240 Intake (Blood Product) Amt Plt Pheresis A Leukoreduced Unit [id number] Output: Urine 1425 / 1425 Stool 0 / 0 Urine Amount (Catheter) 1000 / 1000 Condom 1000 / 1000 Intracranial Drainage Right Temporoparietal Other: Date of Last Bowel Movement 10/24/17 10/27/17 # Bowel Movements 0 - Routine HEENT Exam Comments: GENERAL: NAD, A&Ox3 HEAD: Normocephalic. Ventriculostomy tube is present NECK: Supple, trachea midline. No lymphadenopathy. EYES: No scleral icterus. No injection or drainage. CARDIOVASCULAR: Regular rate and rhythm without murmurs, gallops, or rubs. RESPIRATORY: Breath sounds equal bilaterally. No accessory muscle use. GASTROINTESTINAL: Abdomen soft, non-tender, nondistended. MUSCULOSKELETAL: No cyanosis, or edema. SKIN: Warm and dry. NEURO: No focal neurological deficits. Ventriculostomy tube is present - Urinary Catheter Management Condom Cath placed during this visit: no Results - Labs CBC & Chem 7: 10/29/17 06:10 10/29/17 06:10 Laboratory Results - last 24 hr 10/28/17 10/28/17 10/28/17 12:48 17:33 23:30 WBC RBC Hgb Hct MCV MCH MCHC RDW Plt Count MPV Prelim Diff (Auto) Neut % (Auto) Lymph % (Auto) [place] % (Auto) Eos % (Auto) Baso % (Auto) Neut # (Auto) Lymph # (Auto) [place] # (Auto) Eos # (Auto) Baso # (Auto) WBC Differential Diff Scan Differential Comment Platelet Estimate Platelet Morphology Polychromasia Ovalocytes PT INR APTT Fibrinogen Sodium Potassium 2.6 L* Chloride Carbon Dioxide Anion Gap BUN Creatinine Estimated GFR POC Glucose 175 H Random Glucose Calcium Magnesium Bld Prod Order Comment 10/28/17 10/29/17 10/29/17 23:56 05:42 06:10 WBC RBC Hgb Hct MCV MCH MCHC RDW Plt Count MPV Prelim Diff (Auto) Neut % (Auto) Lymph % (Auto) [place] % (Auto) Eos % (Auto) Baso % (Auto) Neut # (Auto) Lymph # (Auto) [place] # (Auto) Eos # (Auto) Baso # (Auto) WBC Differential Diff Scan Differential Comment Platelet Estimate Platelet Morphology Polychromasia Ovalocytes PT INR APTT Fibrinogen Sodium 150 H Potassium 3.5 D Chloride 118 H Carbon Dioxide 17.2 L Anion Gap 15 BUN 38 H Creatinine 0.69 Estimated GFR Greater than 89 POC Glucose 195 H 256 H Random Glucose 197 H Calcium 8.5 Magnesium 1.7 Bld Prod Order Comment 10/29/17 10/29/17 10/29/17 06:10 06:10 11:48 WBC 5.8 RBC 2.88 L Hgb 8.8 L Hct 26.1 L MCV 90.7 MCH 30.6 MCHC 33.7 RDW 21.6 H Plt Count 61 L D MPV 8.8 Prelim Diff (Auto) Slide review pending Neut % (Auto) 91.5 H Lymph % (Auto) 6.6 L [place] % (Auto) 1.8 Eos % (Auto) 0.0 Baso % (Auto) 0.1 Neut # (Auto) 5.3 Lymph # (Auto) 0.4 L [place] # (Auto) 0.1 Eos # (Auto) 0.0 Baso # (Auto) 0.0 WBC Differential . Diff Scan Auto diff confirmed Differential Comment . Platelet Estimate Low L Platelet Morphology Normal Polychromasia 2.2 H Ovalocytes 1+ H PT 12.6 H INR 1.2 APTT 20.3 L Fibrinogen 113 L Sodium Potassium Chloride Carbon Dioxide Anion Gap BUN Creatinine Estimated GFR POC Glucose 155 H Random Glucose Calcium Magnesium Bld Prod Order Comment Microbiology 10/27/17 19:00 Lumbar Puncture Gram Stain - Final 10/27/17 19:00 Lumbar Puncture CSF Culture - Preliminary Yeast - ID to follow 10/25/17 Unknown Shunt Fluid Gram Stain - Final 10/25/17 Unknown Shunt Fluid CSF Culture - Final Lisa albicans - Procedures 6>s/p stereotactic image guided suboccipital craniectomy, C1 laminectomy, microsurgical resection of metastatic carcinoma, duraplasty - 08/23>Right frontal Lapaz hole with placement of a ventriculostomy catheter removed 09/22 Left 4.4 cm cerebellar brain mass with vasogenic edema s/p EVD 09/29 for base of skull CSF leak vs. seroma.s/p Walt hole with ventriculostomy placement 10/10 for CSF leak Assessment and Plan - Plan 52-year-old male who was admitted to [place] on September 11, 2017 - h/o of atrial flutter status post ablation by Dr. Stokes - systolic heart failure with an ejection fraction of 25%, hypertension, hyperlipidemia, and bladder cancer with chemo radiation in 2016. He presented to the ED after he slipped and fell. - - Mass discovered after slip and fall , presumably related to bladder cancer (treated in 2015) - Crainiotomy performed during this hospitalization, for mass removal - CSF leak occured, yeast growing in CSF, currently under treatment Option for antidepressant discussed today. Patient not currently interested. He is willing to get out of bed in a chair today. Lisa albicans Ventriculitis Continue Amphoteracin B Continue Diflucan ID following Bladder Cancer Brain metastasis Neurosurgery following Status post crainiotomy Continue steroids Oncology treatments on hold till infection cleared Thrombocytopenia Follow platelet counts Anemia Follow CBC Transfuse as needed CHF A-fib HTN Continue Lopressor, Vasotec, hydralazine, cardiology following. Hypokalemia Follow and replace as needed Steroid induced Hyperglycemia Follow blood sugars Insulin sliding scale Levemir DVT Prophylaxis Lovenox Discharge Planning SNF is likely an option after ventriculostomy tube can be removed Avoid apixaban at discharge, per cardiology
--- NOTE | 2017-10-29 17:42 | P.PNNS ---
Subjective Interval history: Patient denies any new problems. Nurses concerned about depression Physical Exam Vital signs: Vital Signs 10/28/17 18:00 10/28/17 18:47 10/28/17 20:00 Temperature 98 F 98.5 F Pulse Rate 80 72 88 Respiratory Rate 23 17 Blood Pressure 117/68 134/78 Pulse Oximetry 97 10/28/17 21:43 10/28/17 22:00 10/29/17 00:00 Temperature 98.7 F Pulse Rate 83 58 L Respiratory Rate 18 15 Blood Pressure 77/51 L Pulse Oximetry 100 100 10/29/17 01:00 10/29/17 02:00 10/29/17 04:00 Temperature 97.5 F L Pulse Rate 56 L 59 L Respiratory Rate 14 Blood Pressure 95/52 L 84/54 L Pulse Oximetry 100 10/29/17 06:00 10/29/17 08:00 10/29/17 12:00 Temperature 97.8 F 97.9 F Pulse Rate 53 L 49 L 57 L Respiratory Rate 15 14 Blood Pressure 119/71 123/76 Pulse Oximetry 95 95 10/29/17 16:00 Temperature 98.6 F Pulse Rate 62 Respiratory Rate 12 Blood Pressure 112/70 Pulse Oximetry 97 Intake & Output 10/28/17 10/29/17 10/29/17 18:59 06:59 18:59 Intake Total 733 / 733 1060 / 1060 550 / 550 Output Total 1425 / 1425 1010 / 1010 Balance -692 / -692 50 / 50 550 / 550 Weight 91.3 kg Intake: IV 300 / 300 820 / 820 550 / 550 SoluMEDROL Inj 5 MG D5W Inj 3.8 0 / 0 ML Amphotericin B Conv. Inj 0. 1 MG In Bag/Syringe 1 EACH @ As Directed IT [facility]We[facility] KATHERINE Rx#: [id number] SoluMEDROL Inj 5 MG D5W Inj 0.8 0 / 0 ML In Bag/Syringe 1 EACH @ As Directed IT [facility]WeFr KATHERINE Rx#: [id number] Ambisome Inj 481.5 MG In D5W 320 / 320 Inj 320 ML @ 125 mls/hr IV.SIG Q24H KATHERINE Rx#:[id number] Diflucan 400 mg Premix Bag 400 200 / 200 ML @ 100 mls/hr IV.SIG Q24H KATHERINE Rx#:[id number] KCl 20 mEq Premix Inj 20 meq In 200 / 200 300 / 300 100 / 100 100 ml @ 50 mls/hr IV.SIG Q2H KATHERINE Rx#:[id number] NS Inj 250 ML @ 15 mls/hr IV. 250 / 250 SIG ONCE ONE Rx#:[id number] Oral 240 / 240 240 / 240 Intake (Blood Product) Amt Plt Pheresis A Leukoreduced Unit [id number] Output: Urine 1425 / 1425 Stool 0 / 0 Urine Amount (Catheter) 1000 / 1000 Condom 1000 / 1000 Intracranial Drainage Right Temporoparietal Other: Date of Last Bowel Movement 10/24/17 10/27/17 10/27/17 # Bowel Movements 0 Narrative: Neurologically unchanged. He awakens easily and follows commands Tends to move all extremities. Ventriculostomy in place - Urinary Catheter Management Condom Cath placed during this visit: no Assessment and Plan - Plan Impression: Patient is stable clinically. We will continue observation
[2017-10-29] MEDS: Insulin Detemir Inj 1,000 UNIT/10 ML Vial SQ SCH (21:00)
[2017-10-29] MEDS: Mirtazapine 15 MG Tablet PO SCH (21:01)
[2017-10-30] MEDS: Insulin NovoLIN Regular Correctional Sugar Inj SQ SCH ×4 (00:45→18:00)
[2017-10-30] MEDS: Artificial Tears Opth Drops 15 ML Bottle EACH EYE SCH ×3 (05:58→21:14)
[2017-10-30 06:54] LABS: Baso % (Auto) 0.2 % (0.0-2.0); Hemoglobin 8.8 gm/dL (13.0-17.0); Lymph # (Auto) 0.5 th/mm3 (1.0-4.8); Lymph % (Auto) 8.3 % (9.0-44.0); Mean Corpuscular HGB Conc 33.7 % (32.0-36.0); Mean Corpuscular Hemoglobin 30.7 pg (27.0-34.0); Mean Platelet Volume 9.2 fL (7.0-11.0); Mono # (Auto) 0.1 th/mm3 (0.0-0.9); Mono % (Auto) 1.8 % (0.0-8.0); Neut # (Auto) 5.2 th/mm3 (1.8-7.7); Neut % (Auto) 89.7 % (16.0-70.0); Platelet Count 52 th/mm3 (150-450); Red Blood Count 2.85 mil/mm3 (4.50-5.90); Red Cell Distribution Width 21.2 % (11.6-17.2); White Blood Count 5.8 th/mm3 (4.0-11.0)
[2017-10-30 06:56] LABS: Activated Partial Thrombo Time 21.1 sec (24.3-30.1); INR 1.3 Ratio; Prothrombin Time 13.6 sec (9.8-11.6)
[2017-10-30 09:25] LABS: Platelet Morphology Normal (Normal); Tear Drop Cells 1+
[2017-10-30] MEDS: Senna/Docusate Sodium 8.6/50 MG Tablet PO SCH ×2 (10:11→21:11)
[2017-10-30] MEDS: levETIRAcetam 500 MG Tablet PO SCH ×2 (10:11→21:10)
[2017-10-30] MEDS: Sodium Chloride 1 GM Tablet PO SCH ×3 (10:11→17:30)
[2017-10-30] MEDS: Metoprolol Tartrate 50 MG Tablet PO SCH ×2 (10:12→21:10)
[2017-10-30] MEDS: Pantoprazole Inj 40 MG Vial IV.PUSH SCH (10:13)
--- NOTE | 2017-10-30 10:32 | P.CONPAL ---
Consult Service: Palliative Care Requesting Physician: Corazon Vasquez Reason for Consult: a. To assist with evaluation and management of symptoms including:Pain, decreased oral intake b. To assist medical decision maker(s) with: better understanding of current medical conditions; weighing benefits/burdens of medical treatment options; making medical treatment decisions. Primary Care Provider: [facility] History of Present Illness History of Present Illness: Mr Clinton is a 52 years old patient with a past medical history of atrial flutter status post ablation, systolic heart failure, hypertension, and history of bladder cancer status post chemoradiation therapy in 2016. Patient was brought to the emergency department on 09/11/17 after he slipped and fell at work. Patient fell on the left side of his head, face and had a laceration to the lift upper eyelid. Patient is on Xarelto. Initially he went to the [facility] but they were not able to suture laceration on the eyelid. ER Course: * Vital signs: Temperature 97.6, pulse 88, respirations 18, blood pressure 150/ 72, O2 saturation 97% on room air * Laboratory workup revealed WBC 9.7, hemoglobin 13.8, hematocrit 40.8, platelet count 144, potassium 4.3, BUN/creatinine 15/0.83, PT 11.4, INR 1.1, fibrinogen 576 * Chest x-ray negative for cardiopulmonary disease * Head CT revealed a mass in the left posterior fossa. * Head MRI revealed heterogeneously enhancing well-circumscribed 4.4 cm mass lesion in the superior aspect of the left cerebellar hemisphere paramidline. Associated vasogenic type edema. Metastatic disease is suspected although the lesion appears to be isolated and therefore a primary brain tumor should also be considered. Supratentorially the brain is radiographically normal. * Patient started on dexamethasone. * Left upper eyelid laceration repaired in the ER Neurosurgeon Dr. Horvath was consulted on 09/11/17 on for evaluation and management of patient with a left cerebellar mass with vasogenic edema, recommended metastatic workup with CT chest, abdomen and pelvis. 09/12 patient had a myocardial perfusion scan which showed no evidence to suggest ischemic myocardial changes. Left ventricle appeared to be dilated. Mild global hypokinesis with a cardiac ejection fraction of 40%. Chest CT on 09/12 revealed tiny 3 mm pulmonary nodule in the posterior right lower lung. Tiny 3 mm pulmonary nodule in the anterior left lower lung. Appears to be evidence of para-aortic adenopathy in the upper to mid abdomen. Abdomen/pelvis CT on 09/12 revealed moderate diffuse para-aortic and retroperitoneal adenopathy in the mid abdomen characteristic of neoplastic disease. Bilateral benign-appearing renal cysts. Scattered diverticula along the sigmoid colon without inflammatory changes. 3 mm pulmonary nodule left lower lung and 2 small stones in the urinary bladder. Cardiology Dr. Mancera consulted on 09/12/17 for preoperative cardiac risk assessment for surgery, recommended that patient undergoes a pharmacologic nuclear stress test and most likely cardiac catheterization to check if patient is a true surgical candidate or not. Oncology/hematology Dr. Chen consulted on 09/12/17 for evaluation and management for perioperative anticoagulation management for the patient was on Eliquis for atrial fibrillation, recommended surgical resection of brain tumor for tissue diagnosis. Patient was cleared for surgery. Ventriculostomy was placed by Dr. Horvath. Ventriculostomy was clamped and patient developed headaches. On September 25 he underwent reexploration of the posterior fossa craniotomy, evacuation of cerebellar clot, duraplasty with dural guide enterocele, placement of epidural drain secondary to cerebral hemorrhage. Follow-up CT showed persistent edema with midline shift. Urine culture positive for gram-negative rods. Patient was extubated on October 07. CSF was noted to be leaking from previous craniotomy site on October 10 and patient was taken back to the OR where he underwent catracho hole surgery by Dr. Horvath. Infectious disease Dr. Gibbons was consulted for evaluation and management of patient with yeast growing and CSF. patient was extubated on October 12. Psychiatry Dr. Austin consulted on October 13 to evaluate and manage patient with symptoms of depression. 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 Hematology reconsulted for thrombocytopenia which they think is likely due to multifactorial reasons, medications, DIC from CSF. Clinical course complicated with thrombocytopenia, bleeding around ventriculostomy site, Lisa infection in cerebrospinal fluid, and decreased appetite. Palliative care consulted to assist with symptom management and establishing goals of care. Today 10/30/17, patient underwent left frontal bare hole with placement of ventriculostomy catheter by Dr. Horvath. Patient seen and examined in his room on ISC chest after he arrived from PACU in the presence of his Oz Rahman and son Oz Rodriguez. Patient lethargic, oriented to self, place and partly situation. Patient endorsing fatigue, denied pain. Meeting with patient`s and son outside in the [facility] waiting room with Yessica Green LCSW. Obtained psychosocial, past medical history and events leading to this hospitalization. Patient has never completed advance directives. Addressed code status with patient`s since patient just came out of surgery given ongoing comorbidities, patient`s elected full code. Encouraged patient`s to further discuss with patient what his wishes are and informed her that patient code status will be readdressed with patient when he is more awake, alert and oriented. Patient`s said that all that patient has been saying was that he wants to go home. Patient`s and son appropriately tearful after discussing patient`s course of illness. Patient`s hopeful that patient will get better and so that he can go through treatment of the newly diagnosed cancer. Expressed concern that if patient continues to deteriorate and decline he may not be able to go through chemotherapy. Patient`s concerned that patient has lost approximately 40lbs during this hospitalization and requesting that patient be started on an appetite stimulant. Patient is already on Dexamethasone. Provided patient`s with palliative care contact information. Function/Cognitive Trajectory: Patient lives at home in was still waking a to E house where he fell. Patient was independent of all his ADLs prior to hospitalization. Patient was able to verbalize he needs. Review of Systems Constitutional: Reports weight loss Eyes: Denies bulging eyes, Denies double vision, Denies irritation, Denies sensitivity to light Ears, Nose, Mouth, and Throat: Reports headache(s), Denies abnormal hearing, Denies hearing loss, Denies nasal congestion, Denies nasal discharge Cardiovascular: Reports rapid, pounding, or irregular heartbeat, Reports shortness of breath, Denies chest pain Respiratory: Reports shortness of breath, Denies chest congestion, Denies pain on inspiration Gastrointestinal: Denies abdominal pain, Denies black, tarry stools, Denies nausea, Denies vomiting Musculoskeletal: Denies limited joint movement, Denies tingling Skin/Breast: Denies rash, Denies skin ulcer Neurologic: Denies abnormal speech, Denies frequent falls, Denies other visual disturbances Psychiatric: Reports depression, Denies tactile hallucinations Endocrine: Denies increased thirst Hematologic/Lymphatic: Reports easy bleeding, Reports easy bruising PMFSH - History History Provided By: Medical Record - Medical History Medical History: Medical History (Last Updated 10/30/17 @ 11:03 by Mary Worrell) BPH (benign prostatic hyperplasia) Borderline hyperlipidemia History of cardioversion Hypertension Paroxysmal atrial flutter - Surgical History Surgical History: Surgical History (Last Updated 10/30/17 @ 11:02 by Mary Worrell) Status post urinary system surgery (Resolved) Hx of cystoscopy Hx of tonsillectomy - Family History Family History: Family History (Last Updated 10/30/17 @ 09:49 by Mary Worrell) Father ETOH abuse - Tobacco History Tobacco Use In Past 30 Days: No Smoking Status: Former smoker (30 year pack history. Quit smoking in 2016) Years Smoked: 30 (Quit in 2015) - Alcohol History How Often Do You Have a Drink Containing Alcohol: 2 to 4 times a month (Quit drinking in 2007) - Substance Use History Substance History: No History of Abuse Medications and Allergies Active Medications: Active Medications Acetaminophen (Tylenol) 650 mg PO Q4H PRN PRN Reason: TEMP >101.5 Hydrocodone Bitart/Acetaminophen ([place] 10/325) 1 tab PO Q4H PRN PRN Reason: PAIN SCALE 1-5 Last Admin: 10/28/17 17:14 Dose: 1 tab Hydrocodone Bitart/Acetaminophen ([place] 10/325) 2 tab PO Q4H PRN PRN Reason: PAIN 6-10 Last Admin: 10/28/17 21:43 Dose: 2 tab Al Hydroxide/Mg Hydroxide (Milk Of Ama Mccoy) 30 ml PO Q12H [facility] Last Admin: 10/30/17 05:59 Dose: Not Given Albuterol (Albuterol Neb (Prn)) 2.5 mg NEB Q2HR NEB PRN PRN Reason: DYSPNEA Artificial Tears (Tears Naturale Opth Drops) 1 drop EACH EYE Q8HR [facility] Last Admin: 10/30/17 05:58 Dose: 1 drop Bisacodyl (Dulcolax Supp) 10 mg RECTAL DAILY PRN PRN Reason: CONSTIPATION Calcium Gluconate (Calcium Gluconate Inj) 1 gm IV.CONT PRN KATHERINE Citalopram Hydrobromide (Celexa) 20 mg PO DAILY KATHERINE Clonidine HCl (Catapres) 0.1 mg PO Q6H PRN PRN Reason: SBP >`140, DBP >90 Dexamethasone Sodium Phosphate (Decadron Inj) 3 mg IV.PUSH Q6HR KATHERINE Last Admin: 10/30/17 05:59 Dose: 3 mg Dextrose (D50w Vial) 50 ml IV.PUSH UNSCH PRN PRN Reason: PER HYPOGLYCEMIA PROTOCOL Diphenhydramine HCl (Benadryl Inj) 25 mg IV.PUSH Q24H KATHERINE Last Admin: 10/29/17 22:26 Dose: 25 mg Enalapril Maleate (Vasotec) 5 mg PO Q12H KATHERINE Last Admin: 10/30/17 00:14 Dose: 5 mg Enalaprilat (Vasotec Inj) 2.5 mg IV.PUSH Q6H PRN PRN Reason: SBP >140,, DBP >90 Glucagon (Glucagon Inj) 1 mg OTHER PRN PRN PRN Reason: for Hypoglycemia Protocol Hydralazine HCl (Apresoline) 25 mg PO Q6H PRN PRN Reason: SBP >140, DBP >90 Fluconazole (Diflucan 400 Mg Premix Bag) 400 mls @ 100 mls/hr IV.SIG Q24H [facility] Last Infusion: 10/30/17 08:16 Dose: Infused Amphotericin B 481.5 mg/ (Dextrose) 320 mls @ 125 mls/hr IV.SIG Q24H KATHERINE Last Infusion: 10/30/17 08:17 Dose: Infused Magnesium Sulfate Inj 4 gm/ (Sodium Chloride) 100 mls @ 50 mls/hr IV.SIG UNSCH PRN PRN Reason: For Magnesium 0.9 - 1.1 mg/dL Magnesium Sulfate Inj 2 gm/ (Sodium Chloride) 100 mls @ 50 mls/hr IV.SIG UNSCH PRN PRN Reason: For Magnesium 1.2 - 1.6 mg/dL Potassium Phosphate 30 mmol/ (Sodium Chloride) 260 mls @ 42 mls/hr IV.SIG UNSCH PRN PRN Reason: SEE LABEL COMMENTS Sodium Phosphate 30 mmol/ (Sodium Chloride) 260 mls @ 42 mls/hr IV.SIG UNSCH PRN PRN Reason: For Phosphorus < 2.5 mg/dL Propofol (Diprivan 1000 Mg/100 Ml Inj) 1,000 mg in 100 mls @ 2.862 mls/hr IV.CONT TITRATE PRN; Protocol PRN Reason: Per Protocol Potassium Chloride (Kcl 40 Meq Premix Inj) 40 meq in 100 mls @ 25 mls/hr IV.SIG Q2H PRN PRN Reason: For Potassium 2.8 - 3.2 mEq/L Potassium Chloride (Kcl 40 Meq Premix Inj) 40 meq in 100 mls @ 25 mls/hr IV.SIG UNSCH PRN PRN Reason: For Potassium 3.3 - 3.5 mEq/L Methylprednisolone Sodium Succinate 5 mg/ Dextrose 0.8 ml/ Syringe/Bag 0.925 mls @ 0 mls/hr [facility] Last Infusion: 10/29/17 07:47 Dose: Infused Methylprednisolone Sodium Succinate 5 mg/ Dextrose 3.8 ml/ Amphotericin B 0.1 mg /Syringe/Bag 3.925 mls @ 0 mls/hr [facility] Last Infusion: 10/29/17 07:46 Dose: 0 mls/hr Insulin Detemir (Levemir Inj) 6 unit SQ [facility] Last Admin: 10/29/17 21:00 Dose: 6 unit Insulin Human Regular (Novolin R Supplemental Scale) 0 units SQ Q6HR [facility]; Protocol Last Admin: 10/30/17 05:57 Dose: Not Given Labetalol HCl (Trandate Inj) 10 mg IV.PUSH Q1H PRN PRN Reason: SBP >160, DBP >90,HR>65 Lactulose (Lactulose Liq) 30 ml PO TID [facility] Last Admin: 10/29/17 18:36 Dose: 30 ml Levetiracetam (Keppra) 500 mg PO Q12HR [facility] Last Admin: 10/29/17 21:00 Dose: 500 mg Magnesium Oxide (Mag-Ox) 800 mg PO UNSCH PRN PRN Reason: For Magnesium 1.2 - 1.6 mg/dL Metoprolol Tartrate (Lopressor) 50 mg PO Q12H [facility] Last Admin: 10/29/17 21:01 Dose: 50 mg Mirtazapine (Remeron) 15 mg PO [facility] Last Admin: 10/29/17 21:01 Dose: 15 mg Morphine Sulfate (Morphine Inj) 2 mg IV.PUSH Q2H PRN PRN Reason: PAIN SCALE 1-6 Morphine Sulfate (Morphine Inj) 4 mg IV.PUSH Q2H PRN PRN Reason: PAIN SCALE 7-10 Ondansetron HCl (Zofran Odt) 4 mg PO Q6H PRN PRN Reason: NAUSEA/VOMITING Pantoprazole Sodium (Protonix Inj) 40 mg IV.PUSH DAILY [facility] Last Admin: 10/29/17 09:43 Dose: Not Given Pantoprazole Sodium (Protonix) 40 mg PO DAILY [facility] Last Admin: 10/29/17 09:41 Dose: 40 mg Potassium Bicarb/Potassium Chloride (K-Lyte Cl Eff) 50 meq PO UNSCH PRN PRN Reason: For Potassium 3.3 - 3.5 mEq/L Last Admin: 10/29/17 00:25 Dose: 50 meq Potassium Chloride (Kcl 40 Meq/30 Ml Liq) 40 meq PO UNSCH PRN PRN Reason: SEE LABEL COMMENTS Potassium Phosphate (K-Phos Original) 2,000 mg PO Q4H PRN PRN Reason: Phosphorus Less Than 2.5 mg/dL Potassium Phosphate (K-Phos Original) 2,000 mg PO UNSCH PRN PRN Reason: SEE LABEL COMMENTS Last Admin: 10/26/17 08:30 Dose: 2,000 mg Promethazine HCl (Phenergan Inj) 25 mg IM Q4H PRN PRN Reason: NAUSEA Senna/Docusate Sodium (Dari-Colace) 2 tab PO BID [facility] Last Admin: 10/29/17 21:00 Dose: 2 tab Sodium Chloride (Ns Flush) 2 ml IV.FLUSH BID [facility] Last Admin: 10/29/17 21:01 Dose: 2 ml Sodium Chloride (Ns Flush) 2 ml IV.FLUSH UNSCH PRN PRN Reason: FLUSH AFTER IV ACCESS Sodium Chloride (Sodium Chloride) 1 gm PO TID [facility] Last Admin: 10/29/17 18:36 Dose: 1 gm Allergies Allergy/AdvReac Type Severity Reaction Status Date / Time No Known Allergies Allergy Unknown Uncoded 07/08/17 00:15 Home Medications Medication Instructions Recorded Confirmed Type apixaban [Eliquis] 5 mg PO BID 10/21/17 10/21/17 History enalapril maleate 2.5 mg PO DAILY 10/21/17 10/21/17 History guaifenesin 200 mg PO Q4H PRN 10/21/17 10/21/17 History metoprolol tartrate [Lopressor] 50 mg PO Q12H 10/21/17 10/21/17 History simvastatin 20 mg PO QPM 10/21/17 10/21/17 History Advance Directives Living Will: No Healthcare Surrogate: No Health Care Surrogate Name and Number: HCP: Bina Clinton [phone] Power of Pricing Manager: No Family/friends goals: Family-patient's spouse wants aggressive treatment at this time. Family hopeful that patient will get better and be able to have chemotherapy or radiation when he is much better. Ethical and Legal Issues: None identified at this time Physical Exam Vital Signs: Vital Signs - 24 hr 10/29/17 12:00 10/29/17 16:00 10/29/17 20:00 Temperature 97.9 F 98.6 F 98.4 F Pulse Rate 57 L 62 66 Respiratory Rate 14 12 15 Blood Pressure 123/76 112/70 130/82 Pulse Oximetry 95 97 10/29/17 20:05 10/29/17 22:00 10/30/17 00:00 Temperature 98.4 F Pulse Rate 72 53 L Respiratory Rate 16 Blood Pressure 115/70 Pulse Oximetry 95 96 10/30/17 02:00 10/30/17 04:00 10/30/17 06:00 Temperature 98.3 F Pulse Rate 54 L 56 L 53 L Respiratory Rate 20 Blood Pressure 123/75 Pulse Oximetry 94 L 10/30/17 08:16 Temperature Pulse Rate Respiratory Rate Blood Pressure Pulse Oximetry 97 I&O: Intake & Output 10/28/17 10/29/17 10/30/17 10/31/17 06:59 06:59 06:59 06:59 Intake Total 1170.8 / 1170.8 1793 / 1793 1770 / 1770 720 / 720 Output Total 1994 2435 / 2435 3516 / 3516 Balance -824.2 / -824.2 -642 / -642 -1746 / -1746 720 / 720 Weight 91.3 kg 92.2 kg Physical Exam: CONSTITUTIONAL/GENERAL: This is an adequately nourished patient, in no apparent distress. TUBES/LINES/DRAINS: SKIN: No jaundice, rashes, or lesions. Ecchymoses on upper extremities. No wounds seen anteriorly. Skin temperature appropriate. Not diaphoretic. HEAD: Atraumatic. Normocephalic. EYES: Pupils equal and round and reactive. Extraocular motions intact. No scleral icterus. No injection or drainage. Fundi not examined. ENT: Hearing grossly normal. Nose without bleeding or purulent drainage. Throat without visible erythema, exudates, masses, or lesions. NECK: Trachea midline. Supple, nontender. No palpable thyroid enlargement or nodularity. CARDIOVASCULAR: Regular rate and rhythm without murmurs, gallops, or rubs. No JVD. Peripheral pulses symmetric. RESPIRATORY/CHEST: Symmetric, unlabored respirations. Clear to auscultation. Breath sounds equal bilaterally. No wheezes, rales, or rhonchi. GASTROINTESTINAL: Abdomen soft, non-tender, nondistended. No hepato-splenomegaly , or palpable masses. No guarding. Bowel sounds present. GENITOURINARY: Without palpable bladder distension. Lemus catheter in place. MUSCULOSKELETAL: Extremities without clubbing, cyanosis, or edema. No joint tenderness or effusion noted. No calf tenderness. No mottling or clubbing. LYMPHATICS: No palpable cervical or supraclavicular adenopathy. NEUROLOGICAL: Awake and alert. Motor and sensory grossly within normal limits. Follows commands. Cognitively sharp. Moves all extremities. PSYCHIATRIC: No obvious anxiety/depression. no apparent hallucinations or other psychotic thought process. Diagnostic Tests Laboratory: Laboratory Results - last 72 hr 10/27/17 10/27/17 10/27/17 13:27 13:27 13:27 WBC RBC Hgb Hct MCV MCH MCHC RDW Plt Count MPV Prelim Diff (Auto) Neut % (Auto) Lymph % (Auto) [place] % (Auto) Eos % (Auto) Baso % (Auto) Neut # (Auto) Lymph # (Auto) [place] # (Auto) Eos # (Auto) Baso # (Auto) WBC Differential Diff Scan Seg Neuts % (Manual) Lymphocytes % (Manual) Abs Neuts (Manual) Nucleated RBCs/100 WBC Differential Comment Platelet Estimate Platelet Morphology Polychromasia Tear Drop Cells Ovalocytes Keratocytes PT 13.3 H INR 1.3 APTT 20.5 L Fibrinogen 97 L* Sodium Potassium 2.9 L* Chloride Carbon Dioxide Anion Gap BUN Creatinine Estimated GFR POC Glucose Random Glucose Calcium Magnesium CSF Volume (1) CSF Supernat Color (1) CSF Gross Blood (1) CSF WBC (1) CSF RBC (1) CSF Neutrophils % CSF Lymphocytes % CSF Monocytes % CSF Chloride CSF Glucose CSF Total Protein Bld Prod Order Comment 10/27/17 10/27/17 10/27/17 19:00 19:00 23:13 WBC RBC Hgb Hct MCV MCH MCHC RDW Plt Count MPV Prelim Diff (Auto) Neut % (Auto) Lymph % (Auto) [place] % (Auto) Eos % (Auto) Baso % (Auto) Neut # (Auto) Lymph # (Auto) [place] # (Auto) Eos # (Auto) Baso # (Auto) WBC Differential Diff Scan Seg Neuts % (Manual) Lymphocytes % (Manual) Abs Neuts (Manual) Nucleated RBCs/100 WBC Differential Comment Platelet Estimate Platelet Morphology Polychromasia Tear Drop Cells Ovalocytes Keratocytes PT INR APTT Fibrinogen Sodium Potassium Chloride Carbon Dioxide Anion Gap BUN Creatinine Estimated GFR POC Glucose 176 H Random Glucose Calcium Magnesium CSF Volume (1) 6.0 CSF Supernat Color (1) Xanthochromic A CSF Gross Blood (1) 3+ A CSF WBC (1) 72 H CSF RBC (1) 03004 H CSF Neutrophils % 86 CSF Lymphocytes % 13 CSF Monocytes % 1 CSF Chloride 139 H CSF Glucose 93 H CSF Total Protein 61.4 H Bld Prod Order Comment 10/28/17 10/28/17 10/28/17 04:51 04:51 05:43 WBC 7.2 RBC 2.97 L Hgb 9.0 L Hct 26.9 L MCV 90.4 MCH 30.3 MCHC 33.5 RDW 21.3 H Plt Count 41 L MPV 8.9 Prelim Diff (Auto) Slide review pending Neut % (Auto) 92.7 H Lymph % (Auto) 5.5 L [place] % (Auto) 1.7 Eos % (Auto) 0.0 Baso % (Auto) 0.1 Neut # (Auto) 6.7 Lymph # (Auto) 0.4 L [place] # (Auto) 0.1 Eos # (Auto) 0.0 Baso # (Auto) 0.0 WBC Differential Manual diff final Diff Scan Seg Neuts % (Manual) 98 H Lymphocytes % (Manual) 2 L Abs Neuts (Manual) 7.1 Nucleated RBCs/100 WBC 3 H Differential Comment . Platelet Estimate Low L Platelet Morphology Normal Polychromasia Tear Drop Cells 1+ H Ovalocytes Keratocytes PT INR APTT Fibrinogen Sodium Potassium 2.6 L* Chloride Carbon Dioxide Anion Gap BUN Creatinine Estimated GFR POC Glucose 148 H Random Glucose Calcium Magnesium CSF Volume (1) CSF Supernat Color (1) CSF Gross Blood (1) CSF WBC (1) CSF RBC (1) CSF Neutrophils % CSF Lymphocytes % CSF Monocytes % CSF Chloride CSF Glucose CSF Total Protein Bld Prod Order Comment 10/28/17 10/28/17 10/28/17 10:15 12:16 12:48 WBC RBC Hgb Hct MCV MCH MCHC RDW Plt Count MPV Prelim Diff (Auto) Neut % (Auto) Lymph % (Auto) [place] % (Auto) Eos % (Auto) Baso % (Auto) Neut # (Auto) Lymph # (Auto) [place] # (Auto) Eos # (Auto) Baso # (Auto) WBC Differential Diff Scan Seg Neuts % (Manual) Lymphocytes % (Manual) Abs Neuts (Manual) Nucleated RBCs/100 WBC Differential Comment Platelet Estimate Platelet Morphology Polychromasia Tear Drop Cells Ovalocytes Keratocytes PT INR APTT 17.8 L Fibrinogen 100 L Sodium Potassium Chloride Carbon Dioxide Anion Gap BUN Creatinine Estimated GFR POC Glucose 146 H Random Glucose Calcium Magnesium CSF Volume (1) CSF Supernat Color (1) CSF Gross Blood (1) CSF WBC (1) CSF RBC (1) CSF Neutrophils % CSF Lymphocytes % CSF Monocytes % CSF Chloride CSF Glucose CSF Total Protein Bld Prod Order Comment 10/28/17 10/28/17 10/28/17 17:33 23:30 23:56 WBC RBC Hgb Hct MCV MCH MCHC RDW Plt Count MPV Prelim Diff (Auto) Neut % (Auto) Lymph % (Auto) [place] % (Auto) Eos % (Auto) Baso % (Auto) Neut # (Auto) Lymph # (Auto) [place] # (Auto) Eos # (Auto) Baso # (Auto) WBC Differential Diff Scan Seg Neuts % (Manual) Lymphocytes % (Manual) Abs Neuts (Manual) Nucleated RBCs/100 WBC Differential Comment Platelet Estimate Platelet Morphology Polychromasia Tear Drop Cells Ovalocytes Keratocytes PT INR APTT Fibrinogen Sodium Potassium 2.6 L* Chloride Carbon Dioxide Anion Gap BUN Creatinine Estimated GFR POC Glucose 175 H 195 H Random Glucose Calcium Magnesium CSF Volume (1) CSF Supernat Color (1) CSF Gross Blood (1) CSF WBC (1) CSF RBC (1) CSF Neutrophils % CSF Lymphocytes % CSF Monocytes % CSF Chloride CSF Glucose CSF Total Protein Bld Prod Order Comment 10/29/17 10/29/17 10/29/17 05:42 06:10 06:10 WBC 5.8 RBC 2.88 L Hgb 8.8 L Hct 26.1 L MCV 90.7 MCH 30.6 MCHC 33.7 RDW 21.6 H Plt Count 61 L D MPV 8.8 Prelim Diff (Auto) Slide review pending Neut % (Auto) 91.5 H Lymph % (Auto) 6.6 L [place] % (Auto) 1.8 Eos % (Auto) 0.0 Baso % (Auto) 0.1 Neut # (Auto) 5.3 Lymph # (Auto) 0.4 L [place] # (Auto) 0.1 Eos # (Auto) 0.0 Baso # (Auto) 0.0 WBC Differential . Diff Scan Auto diff confirmed Seg Neuts % (Manual) Lymphocytes % (Manual) Abs Neuts (Manual) Nucleated RBCs/100 WBC Differential Comment . Platelet Estimate Low L Platelet Morphology Normal Polychromasia 2.2 H Tear Drop Cells Ovalocytes 1+ H Keratocytes PT INR APTT Fibrinogen Sodium 150 H Potassium 3.5 D Chloride 118 H Carbon Dioxide 17.2 L Anion Gap 15 BUN 38 H Creatinine 0.69 Estimated GFR Greater than 89 POC Glucose 256 H Random Glucose 197 H Calcium 8.5 Magnesium 1.7 CSF Volume (1) CSF Supernat Color (1) CSF Gross Blood (1) CSF WBC (1) CSF RBC (1) CSF Neutrophils % CSF Lymphocytes % CSF Monocytes % CSF Chloride CSF Glucose CSF Total Protein Bld Prod Order Comment 10/29/17 10/29/17 10/29/17 06:10 11:48 17:24 WBC RBC Hgb Hct MCV MCH MCHC RDW Plt Count MPV Prelim Diff (Auto) Neut % (Auto) Lymph % (Auto) [place] % (Auto) Eos % (Auto) Baso % (Auto) Neut # (Auto) Lymph # (Auto) [place] # (Auto) Eos # (Auto) Baso # (Auto) WBC Differential Diff Scan Seg Neuts % (Manual) Lymphocytes % (Manual) Abs Neuts (Manual) Nucleated RBCs/100 WBC Differential Comment Platelet Estimate Platelet Morphology Polychromasia Tear Drop Cells Ovalocytes Keratocytes PT 12.6 H INR 1.2 APTT 20.3 L Fibrinogen 113 L Sodium Potassium Chloride Carbon Dioxide Anion Gap BUN Creatinine Estimated GFR POC Glucose 155 H 138 H Random Glucose Calcium Magnesium CSF Volume (1) CSF Supernat Color (1) CSF Gross Blood (1) CSF WBC (1) CSF RBC (1) CSF Neutrophils % CSF Lymphocytes % CSF Monocytes % CSF Chloride CSF Glucose CSF Total Protein Bld Prod Order Comment 10/30/17 10/30/17 10/30/17 01:02 05:23 06:00 WBC 5.8 RBC 2.85 L Hgb 8.8 L Hct 26.0 L MCV 91.0 MCH 30.7 MCHC 33.7 RDW 21.2 H Plt Count 52 L MPV 9.2 Prelim Diff (Auto) Slide review pending Neut % (Auto) 89.7 H Lymph % (Auto) 8.3 L [place] % (Auto) 1.8 Eos % (Auto) 0.0 Baso % (Auto) 0.2 Neut # (Auto) 5.2 Lymph # (Auto) 0.5 L [place] # (Auto) 0.1 Eos # (Auto) 0.0 Baso # (Auto) 0.0 WBC Differential . Diff Scan Auto diff confirmed Seg Neuts % (Manual) Lymphocytes % (Manual) Abs Neuts (Manual) Nucleated RBCs/100 WBC Differential Comment . Platelet Estimate Low L Platelet Morphology Normal Polychromasia Tear Drop Cells 1+ H Ovalocytes Keratocytes 1+ H PT INR APTT Fibrinogen Sodium Potassium Chloride Carbon Dioxide Anion Gap BUN Creatinine Estimated GFR POC Glucose 191 H 129 H Random Glucose Calcium Magnesium CSF Volume (1) CSF Supernat Color (1) CSF Gross Blood (1) CSF WBC (1) CSF RBC (1) CSF Neutrophils % CSF Lymphocytes % CSF Monocytes % CSF Chloride CSF Glucose CSF Total Protein Bld Prod Order Comment 10/30/17 06:00 WBC RBC Hgb Hct MCV MCH MCHC RDW Plt Count MPV Prelim Diff (Auto) Neut % (Auto) Lymph % (Auto) [place]verse % (Auto) Eos % (Auto) Baso % (Auto) Neut # (Auto) Lymph # (Auto) [place] # (Auto) Eos # (Auto) Baso # (Auto) WBC Differential Diff Scan Seg Neuts % (Manual) Lymphocytes % (Manual) Abs Neuts (Manual) Nucleated RBCs/100 WBC Differential Comment Platelet Estimate Platelet Morphology Polychromasia Tear Drop Cells Ovalocytes Keratocytes PT 13.6 H INR 1.3 APTT 21.1 L Fibrinogen 95 L* Sodium Potassium Chloride Carbon Dioxide Anion Gap BUN Creatinine Estimated GFR POC Glucose Random Glucose Calcium Magnesium CSF Volume (1) CSF Supernat Color (1) CSF Gross Blood (1) CSF WBC (1) CSF RBC (1) CSF Neutrophils % CSF Lymphocytes % CSF Monocytes % CSF Chloride CSF Glucose CSF Total Protein Bld Prod Order Comment Result Diagrams: 10/30/17 06:00 10/29/17 06:10 Microbiology: Microbiology 10/27/17 19:00 Gram Stain - Final Lumbar Puncture CSF Culture - Preliminary Yeast - ID to follow 10/25/17 Unknown Gram Stain - Final Shunt Fluid CSF Culture - Final Lisa albicans 10/27/17 20:38 Fungal Smear - Final Cerebral Spinal Fluid - Lumbar Puncture No fungal elements seen 10/25/17 Unknown Fungal Smear - Final Cerebral Spinal Fluid - Shunt Fluid No fungal elements seen 10/24/17 12:46 Gram Stain - Final Shunt Fluid CSF Culture - Final No growth in 72 hours (aerobically and anaerobically) Imaging: Chest X-Ray 10/23/17 00:00 CONCLUSION: The lungs are clear. Head CT 10/26/17 00:00 CONCLUSION: Slight interval increase in size of hemorrhage in the left paramedian posterior fossa. Liver Ultrasound 10/27/17 00:00 CONCLUSION: 1. Simple right renal cyst. 2. Otherwise normal examination of the abdomen. Procedures: 09/13/17-right frontal catracho hole with placement of a ventriculostomy catheter 09/13/17-posterior tactic image guided suboccipital craniectomy, C1 laminectomy , microsurgical resection of metastatic carcinoma, duraplasty 09/22/17-removal of ventriculostomy catheter 09/24/2017-reexploration of the posterior fossa craniectomy, evacuation of cerebellar clot, duraplasty with 2 regarding enterocele, placement of epidural drain 09/24/2017-intubated 09/29/17-EVD for base of skull CSF leak versus seroma 10/06/17-extubated 10/10/17-[place] hole with ventriculostomy placement for CSF leak, with central line placement 10/12/17-extubated Patient/Family Conference Issues Discussed: * Palliative care role, purpose, approach * Additional medical, psychosocial, and spiritual history * Patients general health, functional status, and cognitive changes in the months leading up to the current hospitalization * Patient/family understanding of the current medical problems * Patient/family understanding of prognosis * Patients goals of care as best understood from advance directives and/or conversations and/or values * Current medical treatment options and benefits/burdens of those options * Likely scenarios comparing ongoing aggressive care with a transition to comfort measures only * Questions answered to the best of my ability * Palliative care contact information provided Assessment and Plan - Disease Oriented Problem List (1) Hypertension (2) Paroxysmal atrial flutter (3) History of bladder cancer (4) Status post urinary system surgery Comment: bladder cancer resection - Symptom Scale (1) Pain 0-10 Scale: Unable to quantify Comment: Multiple surgical inteventions during this hospitalization. Patient has a braing tumor, at risk for headaches. (2) Decreased oral intake 0-10 Scale: Unable to quantify Pertinent Non-Medical Issues: Psychosocial: Patient was born and raised in [place]. Patient is , lives with his of 23 years. He has 2 adult children, a daughter Sydney Clinton who lives in [place] and a son Michael Clinton who lives locally. 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 Spiritual: Per she has taken him to holiness several times, but mosque is not a big part of his life Legal:Never completed advance directives Ethical issues impacting care:None identified at this time Important Contacts: Spouse-Lacey Clinton-[phone] Prognosis: Mr Clinton is a 52 years old patient with a past medical history of atrial flutter status post ablation, systolic heart failure, hypertension, and history of bladder cancer status post chemoradiation therapy in 2016. Patient was brought to the emergency department on 09/11/17 after he slipped and fell at work. Patient fell on the left side of his head, face and had a laceration to the lift upper eyelid. Clinical course complicated with thrombocytopenia, bleeding around ventriculostomy, CSF infection and decreased oral intake. Given ongoing comorbidities, patient remains at high risk for further complications, deterioration and decline. Code Status: Full Code Plan: PLAN: Legal decision maker: Patient just had surgery today,partially oriented, currently not able to participate in medical decision making. He is and according to [place] Statute, his Lacey Clinton will serve as his health care proxy until patient regains capacity. Goals: Aggressive Meeting with patient`s and son outside in the [facility] waiting room with Yessica Green LCSW. Obtained psychosocial, past medical history and events leading to this hospitalization. Patient has never completed advance directives. Addressed code status with patient`s since patient just came out of surgery given ongoing comorbidities, patient`s elected full code. Encouraged patient`s to further discuss with patient what his wishes are and informed her that patient code status will be readdressed with patient when he is more awake, alert and oriented. Patient`s said that all that patient has been saying was that he wants to go home. Patient`s and son appropriately tearful after discussing patient`s course of illness. Patient`s hopeful that patient will get better and so that he can go through treatment of the newly diagnosed cancer. Expressed concern that if patient continues to deteriorate and decline he may not be able to go through chemotherapy. Patient`s concerned that patient has lost approximately 40lbs during this hospitalization and requesting that patient be started on an appetite stimulant. Patient is already on Dexamethasone. Provided patient`s with palliative care contact information. CODE STATUS: Full Code SYMPTOMS: * Pain:Patient has a brain tumor, underwent suboccipital craniectomy, C1 laminectomy and resection of metastatic carcinoma. Patient has had multiple surgical interventions. He may have headaches and is at risk for pain. Patient has Morphine Sulfate and hydrocodone/acetaminophen 10/325 prn. Patient denied pain during visit. * Decreased oral intake:Per patient's , patient has had decreased oral intake due to decreased appetite and he has lost approximately 40 pounds during this hospitalization. Patient is already on dexamethasone 3 mg q 6 hrs ATC. Palliative care will continue to follow the patient during hospital course as condition evolves, to assist patient/decision-maker with understanding of their medical conditions, weighing benefits/burdens of treatment options, for clarification of goals of treatment. Additionally will assist with any symptoms of palliative concern Appreciation Thank you for the opportunity to participate in the care of Dmitry Clinton. Attestation Attestation: To help prompt me to consider important information that might be impacting today's encounter and assessment, information from prior notes written by myself or my colleagues may have been "brought forward" into today's note. My signature on this note, however, is an attestation that I personally performed the exam, history, and/or decision-making noted today, and, unless otherwise indicated, the interactions with patient, family, and staff as well as the review of records all occurred today. I also attest that the listed assessment and stated plan reflect my best clinical judgment today based on the combination of historical information, prior notes, and today's exam/ interactions. When time spent is documented, it refers only to time spent today by the signer, or if indicated, combined time spent today by collaborating physician/nurse practitioner.
--- NOTE | 2017-10-30 11:37 | P.PNID ---
Subjective Remarks: ID COVERAGE for Patient is a 52-year-old male, had surgery on a brain mass, and was found to have metastatic non-small cell carcinoma. Has recently been diagnosed to have Lisa ventriculitis, from a CSF October 10. Redo suboccipital craniectomy,C1 laminectomy, Duraplasty with repair of CSF leak on Oct 10, [address] CSF culture, October 10, October 16, and October 17 all with Lisa albicans Has been on amphotericin and fluconazole since October 11 Intrathecal M4 started yesterday Overnight events reviewed with RN No seizures. No fever No rash No new issues No headaches today. No Nausea or vomiting, denies visual changes. Follows commands and talks,smiles Antibiotics: IV AMpho Intrathecal Ampho plus solumedrol IT. Fluconazole IV Lines: Lines ok Past Medical History: atrial flutter systolic heart failure likely chronic ejection fraction 25%, hypertension, hyperlipidemia bladder cancer status post removal with chemoradiation therapy 2016. ablation bladder surgery 2 yrs ago Allergies/Adverse Reactions: Allergies No Known Allergies Allergy (Unknown, Uncoded 07/08/17 00:15) Objective Vital Signs 10/29/17 12:00 10/29/17 16:00 10/29/17 20:00 Temperature 97.9 F 98.6 F 98.4 F Pulse Rate 57 L 62 66 Respiratory Rate 14 12 15 Blood Pressure 123/76 112/70 130/82 Pulse Oximetry 95 97 10/29/17 20:05 10/29/17 22:00 10/30/17 00:00 Temperature 98.4 F Pulse Rate 72 53 L Respiratory Rate 16 Blood Pressure 115/70 Pulse Oximetry 95 96 10/30/17 02:00 10/30/17 04:00 10/30/17 06:00 Temperature 98.3 F Pulse Rate 54 L 56 L 53 L Respiratory Rate 20 Blood Pressure 123/75 Pulse Oximetry 94 L 10/30/17 08:16 Temperature Pulse Rate Respiratory Rate Blood Pressure Pulse Oximetry 97 Intake & Output 10/29/17 10/30/17 10/30/17 18:59 06:59 18:59 Intake Total 1050 / 1050 720 / 720 720 / 720 Output Total 2007 1508 / 1508 Balance -958 / -958 -788 / -788 720 / 720 Weight 92.2 kg Intake: IV 550 / 550 720 / 720 SoluMEDROL Inj 5 MG D5W Inj 3.8 0 / 0 ML Amphotericin B Conv. Inj 0. 1 MG In Bag/Syringe 1 EACH @ As Directed IT [facility] KATHERINE Rx#: [id number] SoluMEDROL Inj 5 MG D5W Inj 0.8 0 / 0 ML In Bag/Syringe 1 EACH @ As Directed IT [facility] KATHERINE Rx#: [id number] Ambisome Inj 481.5 MG In D5W 320 / 320 Inj 320 ML @ 125 mls/hr IV.SIG Q24H KATHERINE Rx#:[id number] Diflucan 400 mg Premix Bag 400 400 / 400 ML @ 100 mls/hr IV.SIG Q24H KATHERINE Rx#:[id number] KCl 20 mEq Premix Inj 20 meq In 100 / 100 100 ml @ 50 mls/hr IV.SIG Q2H KATHERINE Rx#:[id number] NS Inj 250 ML @ 15 mls/hr IV. 250 / 250 SIG ONCE ONE Rx#:[id number] Oral 500 / 500 280 / 280 Other 440 / 440 Output: Stool 0 / 0 Urine Amount (Catheter) 1999 1500 / 1500 Condom 1999 1500 / 1500 Intracranial Drainage Right Temporoparietal Other: # Voids 1 Date of Last Bowel Movement 10/27/17 10/27/17 # Bowel Movements 0 0 10/27/17 19:00 Lumbar Puncture Gram Stain - Final 10/27/17 19:00 Lumbar Puncture CSF Culture - Preliminary Yeast - ID to follow 10/25/17 Unknown Shunt Fluid Gram Stain - Final 10/25/17 Unknown Shunt Fluid CSF Culture - Final Lisa albicans 10/27/17 20:38 Cerebral Spinal Fluid - Lumbar Puncture Fungal Smear - Final No fungal elements seen 10/27/17 20:38 Cerebral Spinal Fluid - Lumbar Puncture Fungal Culture - Pending 10/25/17 Unknown Cerebral Spinal Fluid - Shunt Fluid Fungal Smear - Final No fungal elements seen 10/25/17 Unknown Cerebral Spinal Fluid - Shunt Fluid Fungal Culture - Pending 10/24/17 12:46 Shunt Fluid Gram Stain - Final 10/24/17 12:46 Shunt Fluid CSF Culture - Final No growth in 72 hours (aerobically and anaerobically ) Lab - Hematology Results 10/29/17 10/30/17 06:10 06:00 WBC 5.8 5.8 RBC 2.88 L 2.85 L Hgb 8.8 L 8.8 L Hct 26.1 L 26.0 L MCV 90.7 91.0 MCH 30.6 30.7 MCHC 33.7 33.7 RDW 21.6 H 21.2 H Plt Count 61 L D 52 L MPV 8.8 9.2 Prelim Diff (Auto) Slide review pending Slide review pending Neut % (Auto) 91.5 H 89.7 H Lymph % (Auto) 6.6 L 8.3 L Perry % (Auto) 1.8 1.8 Eos % (Auto) 0.0 0.0 Baso % (Auto) 0.1 0.2 Neut # (Auto) 5.3 5.2 Lymph # (Auto) 0.4 L 0.5 L Perry # (Auto) 0.1 0.1 Eos # (Auto) 0.0 0.0 Baso # (Auto) 0.0 0.0 WBC Differential . . Diff Scan Auto diff confirmed Auto diff confirmed Differential Comment . . Platelet Estimate Low L Low L Platelet Morphology Normal Normal Polychromasia 2.2 H Tear Drop Cells 1+ H Ovalocytes 1+ H Keratocytes 1+ H Lab - Chemistry Results 10/28/17 10/28/17 10/28/17 12:16 17:33 23:30 Sodium Potassium 2.6 L* Chloride Carbon Dioxide Anion Gap BUN Creatinine Estimated GFR POC Glucose 146 H 175 H Random Glucose Calcium Magnesium 10/28/17 10/29/17 10/29/17 23:56 05:42 06:10 Sodium 150 H Potassium 3.5 D Chloride 118 H Carbon Dioxide 17.2 L Anion Gap 15 BUN 38 H Creatinine 0.69 Estimated GFR Greater than 89 POC Glucose 195 H 256 H Random Glucose 197 H Calcium 8.5 Magnesium 1.7 10/29/17 10/29/17 10/30/17 11:48 17:24 01:02 Sodium Potassium Chloride Carbon Dioxide Anion Gap BUN Creatinine Estimated GFR POC Glucose 155 H 138 H 191 H Random Glucose Calcium Magnesium 10/30/17 05:23 Sodium Potassium Chloride Carbon Dioxide Anion Gap BUN Creatinine Estimated GFR POC Glucose 129 H Random Glucose Calcium Magnesium Imaging: ITS Impressions Chest X-Ray 10/23/17 00:00 CONCLUSION: The lungs are clear. Head CT 10/26/17 00:00 CONCLUSION: Slight interval increase in size of hemorrhage in the left paramedian posterior fossa. Liver Ultrasound 10/27/17 00:00 CONCLUSION: 1. Simple right renal cyst. 2. Otherwise normal examination of the abdomen. Physical Exam: Physical Exam CONSTITUTIONAL/GENERAL: Keeps eyes closed, but he follows commands. He answers some questions this is an adequately nourished patient, in no apparent distress. SKIN: No jaundice, rashes, or lesions. Warm and dry HEAD: Ventric in place with blood-tinged CSF . R parietal incision clean EYES: Extraocular motions intact. No scleral icterus. No injection or drainage. Fundi not examined. ENT: Nose without bleeding or purulent drainage. Moist mucosa CARDIOVASCULAR: Regular rate and rhythm without murmurs, gallops, or rubs. RESPIRATORY/CHEST: Symmetric, unlabored respirations. Clear to auscultation. Breath sounds equal bilaterally. No wheezes, rales, or rhonchi. GASTROINTESTINAL: Abdomen soft, non-tender, nondistended. No guarding. Bowel sounds present. Has an umbilical hernia GENITOURINARY: Without palpable bladder distension MUSCULOSKELETAL: Extremities without clubbing, cyanosis, or edema.. No calf tenderness. No mottling or clubbing. NEUROLOGICAL: Awake, follows commands. Right hand turning lathe tender much stronger compared to the left PSYCHIATRIC: Cooperative LINE: No evidence of infection Assessment and Plan - Plan IMPRESSION Bladder cancer, metastatic with brain mets S/P neurosurgical procedure C albicans ventriculitis Serratia, PSAE PNA Serratia bacteremia : source is likley PNA line (PICC), vs PNA vs surgical site infection sp 1 week of treatment Thrombocytopenia PLAN Continue Ampho B Intrathecal zaida clinical Pharmacist Alpesh with RN Shahrzad he will place labels and instructions on syringes for dosing on Monday, Mon, Monday. 1. Solumedrol (Methylprednisone) Intrathecal 2. Intrathecal Ampho plus Intrathecal Solumedrol combo syringe. Continue IV ampho B Continue Diflucan IV. CSF from ventric on 10/25/2017, 10/26/2017 and [facility] with growth of Lisa concerning for ventric being an ongoing source of infection. zaida Briceno and will again dw on Monday to change the ventric. Will need replacement of ventric as patient needs Intrathecal Amphotericin plus Solumedrol further dosing. zaida Horvath he will change ventric this week per my discussion with him. Monitor progress. zaida OROZCO
[2017-10-30] MEDS ORDERED: Lidocaine 1%/Epinephrine 1:100,000 Inj 20 ML Vial ONE (11:55)
[2017-10-30] MEDS ORDERED: Gelatin Size 100 Topical Foam ONE (11:55)
[2017-10-30] MEDS ORDERED: Thrombin Topical Soln 5,000 UNIT Vial TOPICAL ONE (11:55)
[2017-10-30] MEDS ORDERED: Glycopyrrolate Inj 1 MG/5 ML Syringe IV.PUSH ONE (12:00)
[2017-10-30] MEDS ORDERED: Neostigmine Inj 5 MG/5 ML Syringe IV.PUSH ONE (12:00)
[2017-10-30] MEDS ORDERED: Lidocaine PF 1% Inj 5 ML Syringe INFILTRATN ONE (12:00)
[2017-10-30] MEDS ORDERED: Phenylephrine/NS 1000 MCG/10ML Syringe IV.PUSH ONE (12:00)
--- NOTE | 2017-10-30 12:27 | P.PNIM ---
Subjective Interval history: 7 Mr. Clinton has no acute changes today. No complaints. He has been listless for a while. An option for antidepressants is discussed, but he has no consent on this today. He is willing to get in a chair today. 7-9 APPEARS DEPRESSED WILL START CITALOPRAM DUE TO [facility] AND [facility] FORMULARY AT [facility] AM LABS HAS VENTRIC IN PLACE Physical Exam Vital signs: Vital Signs 10/29/17 16:00 10/29/17 20:00 10/29/17 20:05 Temperature 98.6 F 98.4 F Pulse Rate 62 66 Respiratory Rate 12 15 Blood Pressure 112/70 130/82 Pulse Oximetry 97 95 10/29/17 22:00 10/30/17 00:00 10/30/17 02:00 Temperature 98.4 F Pulse Rate 72 53 L 54 L Respiratory Rate 16 Blood Pressure 115/70 Pulse Oximetry 96 10/30/17 04:00 10/30/17 06:00 10/30/17 08:16 Temperature 98.3 F Pulse Rate 56 L 53 L Respiratory Rate 20 Blood Pressure 123/75 Pulse Oximetry 94 L 97 Intake & Output 10/29/17 10/30/17 10/30/17 18:59 06:59 18:59 Intake Total 1050 / 1050 720 / 720 720 / 720 Output Total 2007 1508 / 1508 Balance -958 / -958 -788 / -788 720 / 720 Weight 92.2 kg Intake: IV 550 / 550 720 / 720 SoluMEDROL Inj 5 MG D5W Inj 3.8 0 / 0 ML Amphotericin B Conv. Inj 0. 1 MG In Bag/Syringe 1 EACH @ As Directed IT [facility] KATHERINE Rx#: [id number] SoluMEDROL Inj 5 MG D5W Inj 0.8 0 / 0 ML In Bag/Syringe 1 EACH @ As Directed IT [facility] KATHERINE Rx#: [id number] Ambisome Inj 481.5 MG In D5W 320 / 320 Inj 320 ML @ 125 mls/hr IV.SIG Q24H KATHERINE Rx#:[id number] Diflucan 400 mg Premix Bag 400 400 / 400 ML @ 100 mls/hr IV.SIG Q24H KATHERINE Rx#:[id number] KCl 20 mEq Premix Inj 20 meq In 100 / 100 100 ml @ 50 mls/hr IV.SIG Q2H KATHERINE Rx#:[id number] NS Inj 250 ML @ 15 mls/hr IV. 250 / 250 SIG ONCE ONE Rx#:[id number] Oral 500 / 500 280 / 280 Other 440 / 440 Output: Stool 0 / 0 Urine Amount (Catheter) 1999 1500 / 1500 Condom 1999 1500 / 1500 Intracranial Drainage Right Temporoparietal Other: # Voids 1 Date of Last Bowel Movement 10/27/17 10/27/17 # Bowel Movements 0 0 Narrative: GENERAL: NAD, A&Ox3 HEAD: Normocephalic. Ventriculostomy tube is present NECK: Supple, trachea midline. No lymphadenopathy. EYES: No scleral icterus. No injection or drainage. NECK SUPPLE NO JVD CARDIOVASCULAR: Regular rate and rhythm without murmurs, gallops, or rubs. S1, S2 NO S3 OR S 4 RESPIRATORY: Breath sounds equal bilaterally. No accessory muscle use. GASTROINTESTINAL: Abdomen soft, non-tender, nondistended. OBESE MUSCULOSKELETAL: No cyanosis, or edema. SKIN: Warm and dry. NEURO: No focal neurological deficits. Ventriculostomy tube is present INSIGHT AND JUDGEMENT ARE LIMITED MOOD AND BEHAVIOR APPEARS VERY DEPRESSED - Urinary Catheter Management Condom Cath placed during this visit: no Results - Labs CBC & Chem 7: 10/30/17 06:00 10/29/17 06:10 Laboratory Results - last 24 hr 10/29/17 10/30/17 10/30/17 17:24 01:02 05:23 WBC RBC Hgb Hct MCV MCH MCHC RDW Plt Count MPV Prelim Diff (Auto) Neut % (Auto) Lymph % (Auto) Allen % (Auto) Eos % (Auto) Baso % (Auto) Neut # (Auto) Lymph # (Auto) Allen # (Auto) Eos # (Auto) Baso # (Auto) WBC Differential Diff Scan Differential Comment Platelet Estimate Platelet Morphology Tear Drop Cells Keratocytes PT INR APTT Fibrinogen POC Glucose 138 H 191 H 129 H 10/30/17 10/30/17 10/30/17 06:00 06:00 11:57 WBC 5.8 RBC 2.85 L Hgb 8.8 L Hct 26.0 L MCV 91.0 MCH 30.7 MCHC 33.7 RDW 21.2 H Plt Count 52 L MPV 9.2 Prelim Diff (Auto) Slide review pending Neut % (Auto) 89.7 H Lymph % (Auto) 8.3 L Allen % (Auto) 1.8 Eos % (Auto) 0.0 Baso % (Auto) 0.2 Neut # (Auto) 5.2 Lymph # (Auto) 0.5 L Allen # (Auto) 0.1 Eos # (Auto) 0.0 Baso # (Auto) 0.0 WBC Differential . Diff Scan Auto diff confirmed Differential Comment . Platelet Estimate Low L Platelet Morphology Normal Tear Drop Cells 1+ H Keratocytes 1+ H PT 13.6 H INR 1.3 APTT 21.1 L Fibrinogen 95 L* POC Glucose 125 H Microbiology 10/27/17 19:00 Lumbar Puncture Gram Stain - Final 10/27/17 19:00 Lumbar Puncture CSF Culture - Final Lisa albicans - Imaging ITS Impressions Chest X-Ray 10/23/17 00:00 CONCLUSION: The lungs are clear. Head CT 10/26/17 00:00 CONCLUSION: Slight interval increase in size of hemorrhage in the left paramedian posterior fossa. Liver Ultrasound 10/27/17 00:00 CONCLUSION: 1. Simple right renal cyst. 2. Otherwise normal examination of the abdomen. - Procedures 09/24>s/p stereotactic image guided suboccipital craniectomy, C1 laminectomy, microsurgical resection of metastatic carcinoma, duraplasty - 08/23>Right frontal Dolphin hole with placement of a ventriculostomy catheter removed 09/22 Left 4.4 cm cerebellar brain mass with vasogenic edema s/p EVD 09/29 for base of skull CSF leak vs. seroma.s/p Dolphin hole with ventriculostomy placement 10/10 for CSF leak Assessment and Plan - Plan 52-year-old male who was admitted to [place] on September 11, 2017 - h/o of atrial flutter status post ablation by Dr. CA - systolic heart failure with an ejection fraction of 25%, hypertension, hyperlipidemia, and bladder cancer with chemo radiation in 2016. He presented to the ED after he slipped and fell. - - Mass discovered after slip and fall , presumably related to bladder cancer (treated in 2016) - Craniotomy performed during this hospitalization, for mass removal - CSF leak occurred, yeast growing in CSF, currently under treatment Option for antidepressant discussed today. Patient not currently interested. He is willing to get out of bed in a chair today. Lisa albicans Ventriculitis Continue Amphotericin B Continue Diflucan ID following Bladder Cancer Brain metastasis Neurosurgery following Status post craniotomy Continue steroids Oncology treatments on hold till infection cleared Thrombocytopenia Follow platelet counts Anemia Follow CBC Transfuse as needed CHF A-fib HTN Continue Lopressor, Vasotec, hydralazine, cardiology following. Hypokalemia Follow and replace as needed Steroid induced Hyperglycemia Follow blood sugars Insulin sliding scale Levemir DVT Prophylaxis Lovenox Discharge Planning SNF is likely an option after ventriculostomy tube can be removed Avoid apixaban at discharge, per cardiology AM LABS DEPRESSION START CITALOPRAM DUE TO [facility] Code Status: FULL CODE Discussed Condition With: trust vault clerk Planning: ONCE CLEARED BY ID
[2017-10-30] MEDS ORDERED: Etomidate Inj 40 MG/20 ML Vial IV.PUSH ONE (12:43)
--- NOTE | 2017-10-30 15:27 | P.PNONC ---
Subjective Interval history: Afebrile Patient seen and examined around noon today; just prior to being transferred to OR Patient reports feeling "so-so" No bleeding Objective Vital Signs/Intake & Output: Vital Signs 10/29/17 16:00 10/29/17 20:00 10/29/17 20:05 Temperature 98.6 F 98.4 F Pulse Rate 62 66 Respiratory Rate 12 15 Blood Pressure 112/70 130/82 Pulse Oximetry 97 95 10/29/17 22:00 10/30/17 00:00 10/30/17 02:00 Temperature 98.4 F Pulse Rate 72 53 L 54 L Respiratory Rate 16 Blood Pressure 115/70 Pulse Oximetry 96 10/30/17 04:00 10/30/17 06:00 10/30/17 08:16 Temperature 98.3 F Pulse Rate 56 L 53 L Respiratory Rate 20 Blood Pressure 123/75 Pulse Oximetry 94 L 97 Intake & Output 10/29/17 10/30/17 10/30/17 18:59 06:59 18:59 Intake Total 1050 / 1050 720 / 720 977 / 977 Output Total 2007 1508 / 1508 Balance -958 / -958 -788 / -788 977 / 977 Weight 203 lb 4.259 oz Intake: IV 550 / 550 720 / 720 SoluMEDROL Inj 5 MG D5W Inj 3.8 0 / 0 ML Amphotericin B Conv. Inj 0. 1 MG In Bag/Syringe 1 EACH @ As Directed IT MoWeFr KATHERINE Rx#: [id number] SoluMEDROL Inj 5 MG D5W Inj 0.8 0 / 0 ML In Bag/Syringe 1 EACH @ As Directed IT MoWeFr KATHERINE Rx#: [id number] Ambisome Inj 481.5 MG In D5W 320 / 320 Inj 320 ML @ 125 mls/hr IV.SIG Q24H KATHERINE Rx#:[id number] Diflucan 400 mg Premix Bag 400 400 / 400 ML @ 100 mls/hr IV.SIG Q24H KATHERINE Rx#:[id number] KCl 20 mEq Premix Inj 20 meq In 100 / 100 100 ml @ 50 mls/hr IV.SIG Q2H KATHERINE Rx#:[id number] NS Inj 250 ML @ 15 mls/hr IV. 250 / 250 SIG ONCE ONE Rx#:[id number] Oral 500 / 500 280 / 280 Other 440 / 440 Intake (Blood Product) Amt 257 / 257 Plt Pheresis B Leukoreduced 0 / 0 Unit [id number] Plt Pheresis B Leukoreduced 257 / 257 Unit [id number] Output: Stool 0 / 0 Urine Amount (Catheter) 1999 1500 / 1500 Condom 1999 1500 / 1500 Intracranial Drainage Right Temporoparietal Other: # Voids 1 Date of Last Bowel Movement 10/27/17 10/27/17 # Bowel Movements 0 0 Result Diagrams: 10/30/17 06:00 10/31/17 07:09 Laboratory Results: Laboratory Results - last 24 hr 10/29/17 10/30/17 10/30/17 17:24 01:02 05:23 WBC RBC Hgb Hct MCV MCH MCHC RDW Plt Count MPV Prelim Diff (Auto) Neut % (Auto) Lymph % (Auto) [place] % (Auto) Eos % (Auto) Baso % (Auto) Neut # (Auto) Lymph # (Auto) [place] # (Auto) Eos # (Auto) Baso # (Auto) WBC Differential Diff Scan Differential Comment Platelet Estimate Platelet Morphology Tear Drop Cells Keratocytes PT INR APTT Fibrinogen POC Glucose 138 H 191 H 129 H MTS Gel Crossmatch Bld Prod Order Comment 10/30/17 10/30/17 10/30/17 06:00 06:00 11:57 WBC 5.8 RBC 2.85 L Hgb 8.8 L Hct 26.0 L MCV 91.0 MCH 30.7 MCHC 33.7 RDW 21.2 H Plt Count 52 L MPV 9.2 Prelim Diff (Auto) Slide review pending Neut % (Auto) 89.7 H Lymph % (Auto) 8.3 L [place] % (Auto) 1.8 Eos % (Auto) 0.0 Baso % (Auto) 0.2 Neut # (Auto) 5.2 Lymph # (Auto) 0.5 L [place] # (Auto) 0.1 Eos # (Auto) 0.0 Baso # (Auto) 0.0 WBC Differential . Diff Scan Auto diff confirmed Differential Comment . Platelet Estimate Low L Platelet Morphology Normal Tear Drop Cells 1+ H Keratocytes 1+ H PT 13.6 H INR 1.3 APTT 21.1 L Fibrinogen 95 L* POC Glucose 125 H MTS Gel Crossmatch Bld Prod Order Comment 10/30/17 10/30/17 10/30/17 13:14 13:14 13:49 WBC RBC Hgb Hct MCV MCH MCHC RDW Plt Count MPV Prelim Diff (Auto) Neut % (Auto) Lymph % (Auto) [place] % (Auto) Eos % (Auto) Baso % (Auto) Neut # (Auto) Lymph # (Auto) [place] # (Auto) Eos # (Auto) Baso # (Auto) WBC Differential Diff Scan Differential Comment Platelet Estimate Platelet Morphology Tear Drop Cells Keratocytes PT INR APTT Fibrinogen POC Glucose MTS Gel Crossmatch See Detail Bld Prod Order Comment Culture Results: Microbiology 10/27/17 20:38 Fungal Smear - Final Cerebral Spinal Fluid - Lumbar Puncture No fungal elements seen Fungal Culture - Preliminary Yeast - ID to follow 10/25/17 Unknown Fungal Smear - Final Cerebral Spinal Fluid - Shunt Fluid No fungal elements seen Fungal Culture - Preliminary Yeast - ID to follow 10/27/17 19:00 Gram Stain - Final Lumbar Puncture CSF Culture - Final Lisa albicans 10/25/17 Unknown Gram Stain - Final Shunt Fluid CSF Culture - Final Lisa albicans Medications: Active Medications Generic Name Dose Route Start Last Admin Trade Name Freq PRN Reason Stop Dose Admin Hydrocodone Bitart/Acetaminophen 1 tab 10/22/17 00:01 10/28/17 17:14 [place] 10/325 PO 1 tab Q4H PRN Administration PAIN SCALE 1-5 Hydrocodone Bitart/Acetaminophen 2 tab 10/22/17 00:00 10/28/17 21:43 [place] 10/325 PO 2 tab Q4H PRN Administration PAIN 6-10 Al Hydroxide/Mg Hydroxide 30 ml 10/22/17 06:00 10/30/17 05:59 Milk Of Magnesia Liq PO Not Given Q12H KATHERINE Artificial Tears 1 drop 10/22/17 06:00 10/30/17 05:58 Tears Naturale Opth Drops EACH EYE 1 drop Q8HR KATHERINE Administration Dexamethasone Sodium Phosphate 3 mg 10/22/17 00:00 10/30/17 11:51 Decadron Inj IV.PUSH 3 mg Q6HR KATHERINE Administration Diphenhydramine HCl 25 mg 10/22/17 22:30 10/29/17 22:26 Benadryl Inj IV.PUSH 25 mg Q24H KATHERINE Administration Enalapril Maleate 5 mg 10/22/17 00:00 10/30/17 00:14 Vasotec PO 5 mg Q12H KATHERINE Administration Fluconazole 400 mls @ 100 mls/hr 10/23/17 17:00 10/30/17 08:16 Diflucan 400 Mg Premix Bag IV.SIG Infused Q24H KATHERINE Infusion Amphotericin B 481.5 mg/ 320 mls @ 125 mls/hr 10/22/17 23:00 10/30/17 08:17 Dextrose IV.SIG Infused Q24H KATHERINE Infusion Methylprednisolone Sodium 0.925 mls @ 0 mls/hr 10/23/17 07:00 10/29/17 07:47 Succinate 5 mg/ Dextrose 0.8 IT Infused ml/ Syringe/Bag MoWeFr KATHERINE Infusion As Directed Methylprednisolone Sodium 3.925 mls @ 0 mls/hr 10/23/17 07:00 10/29/17 07:46 Succinate 5 mg/ Dextrose 3.8 IT 0 mls/hr ml/ Amphotericin B 0.1 mg/ MoWeFr KATHERINE Infusion Syringe/Bag As Directed Insulin Detemir 6 unit 10/27/17 21:00 10/29/17 21:00 Levemir Inj SQ 6 unit HS KATHERINE Administration Insulin Human Regular 0 units 10/22/17 14:00 10/30/17 05:57 Novolin R Supplemental Scale SQ Not Given Q6HR KATHERINE Protocol Lactulose 30 ml 10/22/17 09:00 10/30/17 10:12 Lactulose Liq PO 30 ml TID KATHERINE Administration Levetiracetam 500 mg 10/22/17 09:00 10/30/17 10:11 Keppra PO 500 mg Q12HR KATHERINE Administration Metoprolol Tartrate 50 mg 10/22/17 09:00 10/30/17 10:12 Lopressor PO 50 mg Q12H KATHERINE Administration Mirtazapine 15 mg 10/22/17 21:00 10/29/17 21:01 Remeron PO 15 mg HS KATHERINE Administration Pantoprazole Sodium 40 mg 10/22/17 09:00 10/30/17 10:13 Protonix Inj IV.PUSH 40 mg DAILY KATHERINE Administration Pantoprazole Sodium 40 mg 10/22/17 09:00 10/30/17 10:13 Protonix PO Not Given DAILY KATHERINE Potassium Bicarb/Potassium Chloride 50 meq 10/27/17 14:40 10/29/17 00:25 K-Lyte Cl Eff PO 50 meq UNSCH PRN Administration For Potassium 3.3 - 3.5 mEq/L Potassium Phosphate 2,000 mg 10/22/17 00:01 10/26/17 08:30 K-Phos Original PO 2,000 mg UNSCH PRN Administration SEE LABEL COMMENTS Senna/Docusate Sodium 2 tab 10/22/17 09:00 10/30/17 10:11 Dari-Colace PO 2 tab BID KATHERINE Administration Sodium Chloride 2 ml 10/22/17 09:00 10/30/17 10:12 Ns Flush IV.FLUSH 2 ml BID KATHERINE Administration Sodium Chloride 1 gm 10/22/17 09:00 10/30/17 10:11 Sodium Chloride PO 1 gm TID KATHERINE Administration Objective Remarks: GENERAL: Lethargic, middle-aged male resting in bed in no obvious distress SKIN: Warm and dry. HEAD: Normocephalic. Ventriculostomy to right side of scalp. No oozing noted. EYES: No injection or drainage. NECK: Supple, trachea midline. CARDIOVASCULAR: Regular rate and rhythm without murmurs. RESPIRATORY: Breath sounds equal bilaterally. No accessory muscle use. GASTROINTESTINAL: Abdomen soft, non-tender, nondistended. EXTREMITIES: No cyanosis, or edema. MUSCULOSKELETAL: Adequate muscle tone. NEUROLOGICAL: Lethargic. Follows commands. PSYCHIATRIC: Patient seems depressed. He is answering questions via nodding his head yes or no. Assessment/Plan - Plan 52y/o male with metastatic urothelial carcinoma. He has had a brain mass with pathology showing metastatic non-small cell carcinoma. He is positive for Lisa infection in cerebrospinal fluid. Infectious disease is following. Hematology re-consulted for thrombocytopenia. 1. 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 2. Continue to monitor Coags, CBC. 3. Recommend platelet transfusion to keep platelets greater than 50,000 4. Give vitamin K 5 mg p.o. 3 doses for elevated PT - Attending Statement The exam, history, and the medical decision-making described in the above note were completed with the assistance of the mid-level provider. I reviewed and agree with the findings presented. I attest that I had a [id number] encounter with the patient on the same day, and personally performed and documented my assessment and findings in the medical record. Low plat due to infection and medications. Continue to monitor CBC
--- NOTE | 2017-10-30 15:31 | P.OP ---
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 He had persistent positive cultures with fungus. Replacement of the ventriculostomy was requested by the infectious disease doctor. The [id number] details of the procedure, indications, alternatives, risks and potential complications were fully discussed with the patients . She fully understood. All her questions were answered. No guarantees were given. The patient voiced requesting the procedure and provided informed consents. He was offered the alternative of delaying the procedure and continuing with nonsurgical management. DETAILS OF THE SURGICAL PROCEDURE The left frontal area was shaved, prepped and draped in the usual sterile fashion. An entry point was selected 90 millimeters posterior to the supraorbital rim and 25 millimeters from the midline. The area was infiltrated with 1% lidocaine with epinephrine. A skin incision was made with a #10 blade down to the level of the periosteum. Using the TPS drill with the CRANEOTOME attachment a catracho hole was made. The dura was carefully opened with a brain needle and a ventriculostomy catheter was advanced into the ventricular system. At a depth of 60 millimeters, cerebrospinal fluid was obtained. Opening pressure was 10 centimeters of water. A specimen of cerebrospinal fluid was collected and sent to the lab for analysis of the glucose, protein, cell count and cultures. The catheter was then tunneled under the galea and externalized through a stab incision. The incision was closed with 3-0 Vycril for the galea and misael on the skin. The patient tolerated the procedure well. COMPLICATIONS There were no intraoperative complications. BLOOD LOSS Blood loss was minimal, approx. 5cc.
[2017-10-30] MEDS ORDERED: fentaNYL Citrate Inj 100 MCG/2 ML Ampul ONE (15:34)
[2017-10-30] MEDS: [UNRECOGNIZED DRUG - OTHER] IT SCH ×2 (17:00)
[2017-10-30] MEDS: METHYLPREDNISOLONE SOD SUC IT SCH ×3 (17:00→18:01)
[2017-10-30] MEDS: WATER IT SCH ×3 (17:00→18:01)
[2017-10-30] MEDS: DEXTROSE 5% IT SCH ×3 (17:00→18:01)
[2017-10-30] MEDS: Citalopram 20 MG Tablet PO SCH (17:30)
[2017-10-30] MEDS: Phytonadione 5 MG/SWFI 5 ML Oral Syringe PO SCH (17:32)
[2017-10-30] MEDS: [UNRECOGNIZED DRUG - OTHER] IT SCH (18:01)
[2017-10-30 18:46] LABS: Total Protein,CSF 65.6 mg/dL (15.0-45.0)
[2017-10-30 20:28] LABS: Lymphocytes, CSF 12 %; Monocytes,CSF 7 %; Neutrophils,CSF 78 %
[2017-10-30 20:29] LABS: RBC on Tube 1 12492 /mm3
[2017-10-30] MEDS: Insulin Detemir Inj 1,000 UNIT/10 ML Vial SQ SCH (21:00)
[2017-10-30] MEDS: Mirtazapine 15 MG Tablet PO SCH (21:10)
[2017-10-30] MEDS: WATER IV.SIG SCH ×2 (22:20)
[2017-10-30] MEDS: AMPHOTERICIN B LIPOSOMAL IV.SIG SCH ×2 (22:20)
[2017-10-30] MEDS: DEXTROSE 5% IV.SIG SCH ×2 (22:20)
[2017-10-31] MEDS: Insulin NovoLIN Regular Correctional Sugar Inj SQ SCH ×4 (01:00→17:51)
[2017-10-31] MEDS: Artificial Tears Opth Drops 15 ML Bottle EACH EYE SCH ×2 (06:00→13:53)
[2017-10-31 07:54] LABS: Alanine Aminotransferase 144 U/L (12-78); Albumin 2.6 g/dL (3.4-5.0); Alkaline Phosphatase 106 U/L (45-117); Anion Gap 14 meq/L (5-15); Aspartate Aminotransferase 52 U/L (15-37); Blood Urea Nitrogen 32 mg/dL (7-18); Carbon Dioxide 22.5 meq/L (21.0-32.0); Chloride 115 meq/L (98-107); Free T4 (Free Thyroxine) 0.79 ng/dL (0.76-1.46); Glomerular Filtration Rate Greater Than 89 mL/min (>89); Glucose,Random 155 mg/dL (74-106); Magnesium 1.4 mg/dL (1.5-2.5); Phosphorus 3.9 mg/dL (2.5-4.9); Sodium 151 meq/L (136-145); Thyroid Stimulating Hormone 0.484 uIU/mL (0.358-3.740); Total Protein 5.1 g/dL (6.4-8.2)
[2017-10-31] MEDS: levETIRAcetam 500 MG Tablet PO SCH ×2 (08:15→20:59)
[2017-10-31] MEDS: Citalopram 20 MG Tablet PO SCH (08:15)
[2017-10-31] MEDS: Sodium Chloride 1 GM Tablet PO SCH ×3 (08:15→17:28)
[2017-10-31] MEDS: Potassium Chloride 25 MEQ Effervescent Tablet PO PRN (08:16)
[2017-10-31] MEDS: Pantoprazole Inj 40 MG Vial IV.PUSH SCH (08:18)
[2017-10-31] MEDS: Phytonadione 5 MG/SWFI 5 ML Oral Syringe PO SCH (08:21)
[2017-10-31] MEDS: Metoprolol Tartrate 50 MG Tablet PO SCH ×2 (08:22→20:58)
[2017-10-31] MEDS: Potassium Chlor 20 mEq Premix 20 MEQ/100 ML PIGGYBACK IV.SIG SCH ×4 (09:00→15:00)
--- NOTE | 2017-10-31 12:15 | P.PNPAL ---
Reason for Visit Reason for visit: a. To assist with evaluation and management of symptoms including:Pain, decreased oral intake b. To assist medical decision maker(s) with: better understanding of current medical conditions; weighing benefits/burdens of medical treatment options; making medical treatment decisions. Subjective Subjective/Interval History: Follow-up medically necessary for symptom management and further clarification of goals of care. Patient seen and examined in his room on [facility]. Patient is sleeping, arousable but complaining of fatigue and not willing to talk at this time. Patient is lethargic, oriented to self , place. Asked patient if he knows and understands what is going on and he did not respond. Offered patient to update him on conversation palliative care had with his and patient asked to be allowed to rest and complained of a headache. CSF from a lumbar puncture collected on 10/27/17 and from shunt collected on both growing Lisa Albicans. Patient being treated with Amphotericin intrathecally. Patient being treated with laboratory workup today revealing sodium 151, potassium 2.0, BUN/creatinine 32/0.58, random glucose 155, calcium 8.0, AST 52, ALT 144, total protein of 5.1, albumin 2.6. CBC pending. Vital signs stable. Patient evaluated by speech therapy today, recommended mechanical dental soft diet with nectar consistency thickened fluids. Case discussed with bedside RN and Dr. Mahogany Cisse. Telephone call to patient`s , updated her on patient`s status and notified her that patient is on dexamethasone which should also assist with improving his appetite. Patient`s Lacey Clinton mentioned that she did not want patient to be updated on discussion that was held with palliative care regarding his ongoing and current medical status, his wishes and addressing code status with patient. . Family/Friend Interactions: Telephone conversation with patient`s Lacey Clinton . See interval course. Advance Directives Living Will: Never completed Health Care Surrogate: Never completed Durable Power of Milieu Coordinator: Never completed Health Care Surrogate Name and Number: HCP: Bina Clinton [phone] Objective Vital Signs: Vital Signs 10/30/17 12:00 10/30/17 12:23 10/30/17 15:26 Temperature 98.0 F 97.6 F Pulse Rate 55 L 55 L 65 Respiratory Rate 18 16 Blood Pressure 116/73 111/50 L Pulse Oximetry 94 L 92 L 10/30/17 15:30 10/30/17 15:45 10/30/17 16:00 Temperature 97.2 F L Pulse Rate 66 58 L 57 L Respiratory Rate 20 20 20 Blood Pressure 112/64 111/59 L 110/63 Pulse Oximetry 91 L 94 L 94 L 10/30/17 16:30 10/30/17 16:35 10/30/17 18:00 Temperature 97.6 F Pulse Rate 53 L 54 L Respiratory Rate 20 Blood Pressure 113/61 Pulse Oximetry 98 93 L 10/30/17 20:00 10/30/17 20:16 10/30/17 22:00 Temperature 97.2 F L Pulse Rate 50 L 62 Respiratory Rate 15 Blood Pressure 98/60 L Pulse Oximetry 100 100 10/31/17 00:00 10/31/17 02:00 10/31/17 04:00 Temperature 98.2 F 98.1 F Pulse Rate 52 L 48 L 62 Respiratory Rate 14 16 Blood Pressure 119/62 109/61 Pulse Oximetry 100 100 10/31/17 06:00 10/31/17 08:00 10/31/17 08:29 Temperature 97.8 F Pulse Rate 55 L 52 L Respiratory Rate 20 Blood Pressure 119/62 Pulse Oximetry 99 99 10/31/17 10:00 Temperature Pulse Rate 55 L Respiratory Rate Blood Pressure Pulse Oximetry Intake & Output 10/30/17 10/31/17 10/31/17 18:59 06:59 18:59 Intake Total 3004.850 / 3004.850 284.850 / 284.850 Output Total 2054 / 2054 1450 / 1450 Balance 949.850 / 949.850 -1165.150 / -1165.150 Weight 90.1 kg Intake: IV 1127.850 / 1127.850 4.850 / 4.850 SoluMEDROL Inj 5 MG D5W Inj 3.8 7.850 / 7.850 3.925 / 3.925 ML Amphotericin B Conv. Inj 0. 1 MG In Bag/Syringe 1 EACH @ As Directed IT [facility] KATHERINE Rx#: [id number] SoluMEDROL Inj 5 MG D5W Inj 0.8 0.925 / 0.925 ML In Bag/Syringe 1 EACH @ As Directed IT [facility] KATHERINE Rx#: [id number] Ambisome Inj 481.5 MG In D5W 320 / 320 Inj 320 ML @ 125 mls/hr IV.SIG Q24H KATHERINE Rx#:[id number] Diflucan 400 mg Premix Bag 400 800 / 800 ML @ 100 mls/hr IV.SIG Q24H KATHERINE Rx#:[id number] Oral 30 / 30 280 / 280 Anesthesia Amount 1400 / 1400 Intake (Blood Product) Amt 447 / 447 Plt Pheresis B Leukoreduced 190 / 190 Unit [id number] Plt Pheresis B Leukoreduced 257 / 257 Unit [id number] Output: Urine 250 / 250 Estimated Blood Loss 5 / 5 Urine Amount (Catheter) 1800 / 1800 1450 / 1450 CATHETER 1800 / 1800 1450 / 1450 Wound Drainage 0 / 0 Right Occipital 0 / 0 Other: Date of Last Bowel Movement 10/27/17 10/27/17 10/30/17 # Bowel Movements 0 Physical Exam: CONSTITUTIONAL/GENERAL: This is an adequately nourished patient, minimally verbal c/o a headache TUBES/LINES/DRAINS:Ventriculostomy, PIV, SCDs SKIN: No jaundice, rashes, or lesions. Ecchymoses on upper extremities.. Skin temperature appropriate. Not diaphoretic. HEAD: Atraumatic. Normocephalic. Bulk dressing to head, surgical incision to occipital head. Ventriculostomy levelled at 0 cmH2O open to drainage. EYES: Pupils equal and round and reactive. Extraocular motions intact. No scleral icterus. No injection or drainage. Fundi not examined. ENT: Hearing grossly normal. Nose without bleeding or purulent drainage. Moist oral mucosa. NECK: Trachea midline. Supple, nontender. CARDIOVASCULAR: Irregular heart sounds, no murmurs, gallops, or rubs. No JVD. Peripheral pulses symmetric. RESPIRATORY/CHEST: Symmetric, unlabored respirations. Clear to auscultation. Breath sounds equal bilaterally. No wheezes, rales, or rhonchi. GASTROINTESTINAL: Abdomen soft, non-tender, nondistended. No guarding. Bowel sounds present. GENITOURINARY: Without palpable bladder distension. MUSCULOSKELETAL: Extremities without clubbing, cyanosis, or edema. No joint tenderness or effusion noted. No calf tenderness. No mottling or clubbing. NEUROLOGICAL: Sleeping, arousable, oriented to self, place. Follows simple commands PSYCHIATRIC: No obvious anxiety/depression. no apparent hallucinations or other psychotic thought process. Diagnostic Tests Laboratory: Laboratory Results - last 72 hr 10/28/17 10/28/17 10/28/17 10:15 12:16 12:48 WBC RBC Hgb Hct MCV MCH MCHC RDW Plt Count MPV Prelim Diff (Auto) Neut % (Auto) Lymph % (Auto) Hardeman % (Auto) Eos % (Auto) Baso % (Auto) Neut # (Auto) Lymph # (Auto) Hardeman # (Auto) Eos # (Auto) Baso # (Auto) WBC Differential Diff Scan Differential Comment Platelet Estimate Platelet Morphology Polychromasia Tear Drop Cells Ovalocytes Keratocytes PT INR APTT 17.8 L Fibrinogen 100 L Sodium Potassium Chloride Carbon Dioxide Anion Gap BUN Creatinine Estimated GFR POC Glucose 146 H Random Glucose Calcium Phosphorus Magnesium Total Bilirubin AST ALT Alkaline Phosphatase Total Protein Albumin TSH Free T4 CSF Volume (1) CSF Supernat Color (1) CSF Gross Blood (1) CSF WBC (1) CSF RBC (1) CSF Neutrophils % CSF Lymphocytes % CSF Monocytes % CSF Histiocytes CSF Comment CSF Glucose CSF Total Protein Blood Type Antibody Screen MTS Gel Crossmatch Bld Prod Order Comment 10/28/17 10/28/17 10/28/17 17:33 23:30 23:56 WBC RBC Hgb Hct MCV MCH MCHC RDW Plt Count MPV Prelim Diff (Auto) Neut % (Auto) Lymph % (Auto) Hardeman % (Auto) Eos % (Auto) Baso % (Auto) Neut # (Auto) Lymph # (Auto) Hardeman # (Auto) Eos # (Auto) Baso # (Auto) WBC Differential Diff Scan Differential Comment Platelet Estimate Platelet Morphology Polychromasia Tear Drop Cells Ovalocytes Keratocytes PT INR APTT Fibrinogen Sodium Potassium 2.6 L* Chloride Carbon Dioxide Anion Gap BUN Creatinine Estimated GFR POC Glucose 175 H 195 H Random Glucose Calcium Phosphorus Magnesium Total Bilirubin AST ALT Alkaline Phosphatase Total Protein Albumin TSH Free T4 CSF Volume (1) CSF Supernat Color (1) CSF Gross Blood (1) CSF WBC (1) CSF RBC (1) CSF Neutrophils % CSF Lymphocytes % CSF Monocytes % CSF Histiocytes CSF Comment CSF Glucose CSF Total Protein Blood Type Antibody Screen MTS Gel Crossmatch Bld Prod Order Comment 10/29/17 10/29/17 10/29/17 05:42 06:10 06:10 WBC 5.8 RBC 2.88 L Hgb 8.8 L Hct 26.1 L MCV 90.7 MCH 30.6 MCHC 33.7 RDW 21.6 H Plt Count 61 L D MPV 8.8 Prelim Diff (Auto) Slide review pending Neut % (Auto) 91.5 H Lymph % (Auto) 6.6 L Hardeman % (Auto) 1.8 Eos % (Auto) 0.0 Baso % (Auto) 0.1 Neut # (Auto) 5.3 Lymph # (Auto) 0.4 L Hardeman # (Auto) 0.1 Eos # (Auto) 0.0 Baso # (Auto) 0.0 WBC Differential . Diff Scan Auto diff confirmed Differential Comment . Platelet Estimate Low L Platelet Morphology Normal Polychromasia 2.2 H Tear Drop Cells Ovalocytes 1+ H Keratocytes PT INR APTT Fibrinogen Sodium 150 H Potassium 3.5 D Chloride 118 H Carbon Dioxide 17.2 L Anion Gap 15 BUN 38 H Creatinine 0.69 Estimated GFR Greater than 89 POC Glucose 256 H Random Glucose 197 H Calcium 8.5 Phosphorus Magnesium 1.7 Total Bilirubin AST ALT Alkaline Phosphatase Total Protein Albumin TSH Free T4 CSF Volume (1) CSF Supernat Color (1) CSF Gross Blood (1) CSF WBC (1) CSF RBC (1) CSF Neutrophils % CSF Lymphocytes % CSF Monocytes % CSF Histiocytes CSF Comment CSF Glucose CSF Total Protein Blood Type Antibody Screen MTS Gel Crossmatch Bld Prod Order Comment 10/29/17 10/29/17 10/29/17 06:10 11:48 17:24 WBC RBC Hgb Hct MCV MCH MCHC RDW Plt Count MPV Prelim Diff (Auto) Neut % (Auto) Lymph % (Auto) Hardeman % (Auto) Eos % (Auto) Baso % (Auto) Neut # (Auto) Lymph # (Auto) Hardeman # (Auto) Eos # (Auto) Baso # (Auto) WBC Differential Diff Scan Differential Comment Platelet Estimate Platelet Morphology Polychromasia Tear Drop Cells Ovalocytes Keratocytes PT 12.6 H INR 1.2 APTT 20.3 L Fibrinogen 113 L Sodium Potassium Chloride Carbon Dioxide Anion Gap BUN Creatinine Estimated GFR POC Glucose 155 H 138 H Random Glucose Calcium Phosphorus Magnesium Total Bilirubin AST ALT Alkaline Phosphatase Total Protein Albumin TSH Free T4 CSF Volume (1) CSF Supernat Color (1) CSF Gross Blood (1) CSF WBC (1) CSF RBC (1) CSF Neutrophils % CSF Lymphocytes % CSF Monocytes % CSF Histiocytes CSF Comment CSF Glucose CSF Total Protein Blood Type Antibody Screen MTS Gel Crossmatch Bld Prod Order Comment 10/30/17 10/30/17 10/30/17 01:02 05:23 06:00 WBC 5.8 RBC 2.85 L Hgb 8.8 L Hct 26.0 L MCV 91.0 MCH 30.7 MCHC 33.7 RDW 21.2 H Plt Count 52 L MPV 9.2 Prelim Diff (Auto) Slide review pending Neut % (Auto) 89.7 H Lymph % (Auto) 8.3 L Hardeman % (Auto) 1.8 Eos % (Auto) 0.0 Baso % (Auto) 0.2 Neut # (Auto) 5.2 Lymph # (Auto) 0.5 L Hardeman # (Auto) 0.1 Eos # (Auto) 0.0 Baso # (Auto) 0.0 WBC Differential . Diff Scan Auto diff confirmed Differential Comment . Platelet Estimate Low L Platelet Morphology Normal Polychromasia Tear Drop Cells 1+ H Ovalocytes Keratocytes 1+ H PT INR APTT Fibrinogen Sodium Potassium Chloride Carbon Dioxide Anion Gap BUN Creatinine Estimated GFR POC Glucose 191 H 129 H Random Glucose Calcium Phosphorus Magnesium Total Bilirubin AST ALT Alkaline Phosphatase Total Protein Albumin TSH Free T4 CSF Volume (1) CSF Supernat Color (1) CSF Gross Blood (1) CSF WBC (1) CSF RBC (1) CSF Neutrophils % CSF Lymphocytes % CSF Monocytes % CSF Histiocytes CSF Comment CSF Glucose CSF Total Protein Blood Type Antibody Screen MTS Gel Crossmatch Bld Prod Order Comment 10/30/17 10/30/17 10/30/17 06:00 11:57 13:14 WBC RBC Hgb Hct MCV MCH MCHC RDW Plt Count MPV Prelim Diff (Auto) Neut % (Auto) Lymph % (Auto) Hardeman % (Auto) Eos % (Auto) Baso % (Auto) Neut # (Auto) Lymph # (Auto) Hardeman # (Auto) Eos # (Auto) Baso # (Auto) WBC Differential Diff Scan Differential Comment Platelet Estimate Platelet Morphology Polychromasia Tear Drop Cells Ovalocytes Keratocytes PT 13.6 H INR 1.3 APTT 21.1 L Fibrinogen 95 L* Sodium Potassium Chloride Carbon Dioxide Anion Gap BUN Creatinine Estimated GFR POC Glucose 125 H Random Glucose Calcium Phosphorus Magnesium Total Bilirubin AST ALT Alkaline Phosphatase Total Protein Albumin TSH Free T4 CSF Volume (1) CSF Supernat Color (1) CSF Gross Blood (1) CSF WBC (1) CSF RBC (1) CSF Neutrophils % CSF Lymphocytes % CSF Monocytes % CSF Histiocytes CSF Comment CSF Glucose CSF Total Protein Blood Type Antibody Screen MTS Gel Crossmatch Bld Prod Order Comment 10/30/17 10/30/17 10/30/17 13:14 13:49 15:47 WBC RBC Hgb Hct MCV MCH MCHC RDW Plt Count MPV Prelim Diff (Auto) Neut % (Auto) Lymph % (Auto) Hardeman % (Auto) Eos % (Auto) Baso % (Auto) Neut # (Auto) Lymph # (Auto) Hardeman # (Auto) Eos # (Auto) Baso # (Auto) WBC Differential Diff Scan Differential Comment Platelet Estimate Platelet Morphology Polychromasia Tear Drop Cells Ovalocytes Keratocytes PT INR APTT Fibrinogen Sodium Potassium Chloride Carbon Dioxide Anion Gap BUN Creatinine Estimated GFR POC Glucose 139 H Random Glucose Calcium Phosphorus Magnesium Total Bilirubin AST ALT Alkaline Phosphatase Total Protein Albumin TSH Free T4 CSF Volume (1) CSF Supernat Color (1) CSF Gross Blood (1) CSF WBC (1) CSF RBC (1) CSF Neutrophils % CSF Lymphocytes % CSF Monocytes % CSF Histiocytes CSF Comment CSF Glucose CSF Total Protein Blood Type O Positive Antibody Screen Negative MTS Gel Crossmatch See Detail Bld Prod Order Comment 10/30/17 10/30/17 10/31/17 Unknown Unknown 00:40 WBC RBC Hgb Hct MCV MCH MCHC RDW Plt Count MPV Prelim Diff (Auto) Neut % (Auto) Lymph % (Auto) Hardeman % (Auto) Eos % (Auto) Baso % (Auto) Neut # (Auto) Lymph # (Auto) Hardeman # (Auto) Eos # (Auto) Baso # (Auto) WBC Differential Diff Scan Differential Comment Platelet Estimate Platelet Morphology Polychromasia Tear Drop Cells Ovalocytes Keratocytes PT INR APTT Fibrinogen Sodium Potassium Chloride Carbon Dioxide Anion Gap BUN Creatinine Estimated GFR POC Glucose 217 H Random Glucose Calcium Phosphorus Magnesium Total Bilirubin AST ALT Alkaline Phosphatase Total Protein Albumin TSH Free T4 CSF Volume (1) 10.0 CSF Supernat Color (1) Slightly xanthochrom A CSF Gross Blood (1) 2+ A CSF WBC (1) 113 H CSF RBC (1) 34618 H CSF Neutrophils % 78 CSF Lymphocytes % 12 CSF Monocytes % 7 CSF Histiocytes 3 CSF Comment CSF Glucose 76 CSF Total Protein 65.6 H Blood Type Antibody Screen MTS Gel Crossmatch Bld Prod Order Comment 10/31/17 10/31/17 05:36 07:09 WBC RBC Hgb Hct MCV MCH MCHC RDW Plt Count MPV Prelim Diff (Auto) Neut % (Auto) Lymph % (Auto) Hardeman % (Auto) Eos % (Auto) Baso % (Auto) Neut # (Auto) Lymph # (Auto) Hardeman # (Auto) Eos # (Auto) Baso # (Auto) WBC Differential Diff Scan Differential Comment Platelet Estimate Platelet Morphology Polychromasia Tear Drop Cells Ovalocytes Keratocytes PT INR APTT Fibrinogen Sodium 151 H Potassium 2.0 L* Chloride 115 H Carbon Dioxide 22.5 Anion Gap 14 BUN 32 H Creatinine 0.58 L Estimated GFR Greater than 89 POC Glucose 163 H Random Glucose 155 H Calcium 8.0 L Phosphorus 3.9 Magnesium 1.4 L Total Bilirubin 1.4 H AST 52 H ALT 144 H Alkaline Phosphatase 106 Total Protein 5.1 L Albumin 2.6 L TSH 0.484 Free T4 0.79 CSF Volume (1) CSF Supernat Color (1) CSF Gross Blood (1) CSF WBC (1) CSF RBC (1) CSF Neutrophils % CSF Lymphocytes % CSF Monocytes % CSF Histiocytes CSF Comment CSF Glucose CSF Total Protein Blood Type Antibody Screen MTS Gel Crossmatch Bld Prod Order Comment Result Diagrams: 10/30/17 06:00 10/31/17 07:09 Microbiology: Microbiology 10/27/17 20:38 Fungal Smear - Final Cerebral Spinal Fluid - Lumbar Puncture No fungal elements seen Fungal Culture - Preliminary Lisa albicans 10/25/17 Unknown Fungal Smear - Final Cerebral Spinal Fluid - Shunt Fluid No fungal elements seen Fungal Culture - Preliminary Lisa albicans 10/30/17 Unknown Gram Stain - Final Shunt Fluid CSF Culture - Preliminary No growth in 24 hours 10/27/17 19:00 Gram Stain - Final Lumbar Puncture CSF Culture - Final Lisa albicans 10/25/17 Unknown Gram Stain - Final Shunt Fluid CSF Culture - Final Lisa albicans Imaging: Chest X-Ray 10/23/17 00:00 CONCLUSION: The lungs are clear. Head CT 10/26/17 00:00 CONCLUSION: Slight interval increase in size of hemorrhage in the left paramedian posterior fossa. Liver Ultrasound 10/27/17 00:00 CONCLUSION: 1. Simple right renal cyst. 2. Otherwise normal examination of the abdomen. Procedures: 09/13/17-right frontal catracho hole with placement of a ventriculostomy catheter 09/13/17-posterior tactic image guided suboccipital craniectomy, C1 laminectomy , microsurgical resection of metastatic carcinoma, duraplasty 09/22/17-removal of ventriculostomy catheter 09/24/2017-reexploration of the posterior fossa craniectomy, evacuation of cerebellar clot, duraplasty with 2 regarding enterocele, placement of epidural drain 09/24/2017-intubated 09/29/17-EVD for base of skull CSF leak versus seroma 10/06/17-extubated 10/10/17-[place] hole with ventriculostomy placement for CSF leak, with central line placement 10/12/17-extubated 10/30/17-left frontal catracho hole with placement of ventriculostomy catheter Assessment and Plan - Disease Oriented Problem List (1) Hypertension (2) Paroxysmal atrial flutter (3) History of bladder cancer (4) Status post urinary system surgery Comment: bladder cancer resection - Symptom Scale (1) Pain Comment: Multiple surgical inteventions during this hospitalization. Patient has a braing tumor, at risk for headaches. (2) Decreased oral intake 0-10 Scale: Unable to quantify Pertinent Non-Medical Issues: Psychosocial: Patient was born and raised in [place]. Patient is , lives with his of 23 years. He has 2 adult children, a daughter Sydney Clinton who lives in [place] and a son Michael Clinton who lives locally. 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 Spiritual: Per she has taken him to shinto several times, but catholic is not a big part of his life Legal:Never completed advance directives Ethical issues impacting care:None identified at this time Important Contacts: Spouse-Lacey Clinton-[phone] Prognosis: Mr Clinton is a 52 years old patient with a past medical history of atrial flutter status post ablation, systolic heart failure, hypertension, and history of bladder cancer status post chemoradiation therapy in 2016. Patient was brought to the emergency department on 09/11/17 after he slipped and fell at work. Patient fell on the left side of his head, face and had a laceration to the lift upper eyelid. Clinical course complicated with thrombocytopenia, bleeding around ventriculostomy, CSF infection and decreased oral intake. Given ongoing comorbidities, patient remains at high risk for further complications, deterioration and decline. Code Status: Full Code Plan: PLAN: Legal decision maker: Patient is lethargic and appears able to participate in medical decision making. Patient minimally verbal, recommending joint decision making with his . In the event that he is incapacitated his Lacey Clinton would serve as his health care proxy. Goals: Aggressive Telephone call to patient`s , updated her on patient`s status and notified her that patient is on dexamethasone which should also assist with improving his appetite. Patient`s Lacey Clinton mentioned that she did not want patient to be updated on discussion that was held with palliative care regarding his ongoing and current medical status, his wishes and addressing code status with patient. CODE STATUS: Full Code SYMPTOMS: * Pain:Patient has a brain tumor, underwent suboccipital craniectomy, C1 laminectomy and resection of metastatic carcinoma. Patient has had multiple surgical interventions. He may have headaches and is at risk for pain. Patient has Morphine Sulfate and hydrocodone/acetaminophen 10/325 prn. Patient c/o a headache. Bedside RN notified. * Decreased oral intake:Per patient's , patient has had decreased oral intake due to decreased appetite and he has lost approximately 40 pounds during this hospitalization. Speech therapy consulted recommended mechanical soft diet and nectar thick fluids. Patient is already on dexamethasone 3 mg q 6 hrs ATC. Palliative care will continue to follow the patient during hospital course as condition evolves, to assist patient/decision-maker with understanding of their medical conditions, weighing benefits/burdens of treatment options, for clarification of goals of treatment. Additionally will assist with any symptoms of palliative concern Attestation Attestation: To help prompt me to consider important information that might be impacting today's encounter and assessment, information from prior notes written by myself or my colleagues may have been "brought forward" into today's note. My signature on this note, however, is an attestation that I personally performed the exam, history, and/or decision-making noted today, and, unless otherwise indicated, the interactions with patient, family, and staff as well as the review of records all occurred today. I also attest that the listed assessment and stated plan reflect my best clinical judgment today based on the combination of historical information, prior notes, and today's exam/ interactions. When time spent is documented, it refers only to time spent today by the signer, or if indicated, combined time spent today by collaborating physician/nurse practitioner.
--- NOTE | 2017-10-31 13:18 | P.PNID ---
Subjective Remarks: ID COVERAGE for Patient is a 52-year-old male, had surgery on a brain mass, and was found to have metastatic non-small cell carcinoma. Has recently been diagnosed to have Lisa ventriculitis, from a CSF October 10. Redo suboccipital craniectomy,C1 laminectomy, Duraplasty with repair of CSF leak on Oct 10, [address] CSF culture, October 10, October 16, and October 17 all with Lisa albicans Has been on amphotericin and fluconazole since October 11 Intrathecal M4 started yesterday Overnight events reviewed with RN s/p removal of old ventric and placement of new ventric. No seizures. No fever No rash No new issues No headaches today. No Nausea or vomiting, denies visual changes. Follows commands and talks,smiles Antibiotics: IV AMpho Intrathecal Ampho plus solumedrol IT. Fluconazole IV Lines: Lines ok Past Medical History: atrial flutter systolic heart failure likely chronic ejection fraction 25%, hypertension, hyperlipidemia bladder cancer status post removal with chemoradiation therapy 2015. ablation bladder surgery 2 yrs ago Allergies/Adverse Reactions: Allergies No Known Allergies Allergy (Unknown, Uncoded 07/08/17 00:15) Objective Vital Signs 10/30/17 15:26 10/30/17 15:30 10/30/17 15:45 Temperature 97.6 F Pulse Rate 65 66 58 L Respiratory Rate 16 20 20 Blood Pressure 111/50 L 112/64 111/59 L Pulse Oximetry 92 L 91 L 94 L 10/30/17 16:00 10/30/17 16:30 10/30/17 16:35 Temperature 97.2 F L 97.6 F Pulse Rate 57 L 53 L Respiratory Rate 20 20 Blood Pressure 110/63 113/61 Pulse Oximetry 94 L 98 93 L 10/30/17 18:00 10/30/17 20:00 10/30/17 20:16 Temperature 97.2 F L Pulse Rate 54 L 50 L Respiratory Rate 15 Blood Pressure 98/60 L Pulse Oximetry 100 100 10/30/17 22:00 10/31/17 00:00 10/31/17 02:00 Temperature 98.2 F Pulse Rate 62 52 L 48 L Respiratory Rate 14 Blood Pressure 119/62 Pulse Oximetry 100 10/31/17 04:00 10/31/17 06:00 10/31/17 08:00 Temperature 98.1 F 97.8 F Pulse Rate 62 55 L 52 L Respiratory Rate 16 20 Blood Pressure 109/61 119/62 Pulse Oximetry 100 99 10/31/17 08:29 10/31/17 10:00 Temperature Pulse Rate 55 L Respiratory Rate Blood Pressure Pulse Oximetry 99 Intake & Output 10/30/17 10/31/17 10/31/17 18:59 06:59 18:59 Intake Total 3004.850 / 3004.850 284.850 / 284.850 Output Total 2054 1450 / 1450 Balance 949.850 / 949.850 -1165.150 / -1165.150 Weight 90.1 kg Intake: IV 1127.850 / 1127.850 4.850 / 4.850 SoluMEDROL Inj 5 MG D5W Inj 3.8 7.850 / 7.850 3.925 / 3.925 ML Amphotericin B Conv. Inj 0. 1 MG In Bag/Syringe 1 EACH @ As Directed IT MoWeFr KATHERINE Rx#: [id number] SoluMEDROL Inj 5 MG D5W Inj 0.8 0.925 / 0.925 ML In Bag/Syringe 1 EACH @ As Directed IT MoWeFr KATHERINE Rx#: [id number] Ambisome Inj 481.5 MG In D5W 320 / 320 Inj 320 ML @ 125 mls/hr IV.SIG Q24H KATHERINE Rx#:[id number] Diflucan 400 mg Premix Bag 400 800 / 800 ML @ 100 mls/hr IV.SIG Q24H KATHERINE Rx#:[id number] Oral 30 / 30 280 / 280 Anesthesia Amount 1400 / 1400 Intake (Blood Product) Amt 447 / 447 Plt Pheresis B Leukoreduced 190 / 190 Unit [id number] Plt Pheresis B Leukoreduced 257 / 257 Unit [id number] Output: Urine 250 / 250 Estimated Blood Loss 5 / 5 Urine Amount (Catheter) 1800 / 1800 1450 / 1450 CATHETER 1800 / 1800 1450 / 1450 Wound Drainage 0 / 0 Right Occipital 0 / 0 Other: Date of Last Bowel Movement 10/27/17 10/27/17 10/30/17 # Bowel Movements 0 10/27/17 20:38 Cerebral Spinal Fluid - Lumbar Puncture Fungal Smear - Final No fungal elements seen 10/27/17 20:38 Cerebral Spinal Fluid - Lumbar Puncture Fungal Culture - Preliminary Lisa albicans 10/25/17 Unknown Cerebral Spinal Fluid - Shunt Fluid Fungal Smear - Final No fungal elements seen 10/25/17 Unknown Cerebral Spinal Fluid - Shunt Fluid Fungal Culture - Preliminary Lisa albicans 10/30/17 Unknown Shunt Fluid Gram Stain - Final 10/30/17 Unknown Shunt Fluid CSF Culture - Preliminary No growth in 24 hours 10/30/17 Unknown Cerebral Spinal Fluid - Shunt Fluid Fungal Smear - Pending 10/30/17 Unknown Cerebral Spinal Fluid - Shunt Fluid Fungal Culture - Pending 10/27/17 19:00 Lumbar Puncture Gram Stain - Final 10/27/17 19:00 Lumbar Puncture CSF Culture - Final Lisa albicans 10/25/17 Unknown Shunt Fluid Gram Stain - Final 10/25/17 Unknown Shunt Fluid CSF Culture - Final Lisa albicans Lab - Hematology Results 10/30/17 06:00 WBC 5.8 RBC 2.85 L Hgb 8.8 L Hct 26.0 L MCV 91.0 MCH 30.7 MCHC 33.7 RDW 21.2 H Plt Count 52 L MPV 9.2 Prelim Diff (Auto) Slide review pending Neut % (Auto) 89.7 H Lymph % (Auto) 8.3 L [place] % (Auto) 1.8 Eos % (Auto) 0.0 Baso % (Auto) 0.2 Neut # (Auto) 5.2 Lymph # (Auto) 0.5 L [place] # (Auto) 0.1 Eos # (Auto) 0.0 Baso # (Auto) 0.0 WBC Differential . Diff Scan Auto diff confirmed Differential Comment . Platelet Estimate Low L Platelet Morphology Normal Tear Drop Cells 1+ H Keratocytes 1+ H Lab - Chemistry Results 10/29/17 10/30/17 10/30/17 17:24 01:02 05:23 Sodium Potassium Chloride Carbon Dioxide Anion Gap BUN Creatinine Estimated GFR POC Glucose 138 H 191 H 129 H Random Glucose Calcium Phosphorus Magnesium Total Bilirubin AST ALT Alkaline Phosphatase Total Protein Albumin TSH Free T4 10/30/17 10/30/17 10/31/17 11:57 15:47 00:40 Sodium Potassium Chloride Carbon Dioxide Anion Gap BUN Creatinine Estimated GFR POC Glucose 125 H 139 H 217 H Random Glucose Calcium Phosphorus Magnesium Total Bilirubin AST ALT Alkaline Phosphatase Total Protein Albumin TSH Free T4 10/31/17 10/31/17 10/31/17 05:36 07:09 12:06 Sodium 151 H Potassium 2.0 L* Chloride 115 H Carbon Dioxide 22.5 Anion Gap 14 BUN 32 H Creatinine 0.58 L Estimated GFR Greater than 89 POC Glucose 163 H 185 H Random Glucose 155 H Calcium 8.0 L Phosphorus 3.9 Magnesium 1.4 L Total Bilirubin 1.4 H AST 52 H ALT 144 H Alkaline Phosphatase 106 Total Protein 5.1 L Albumin 2.6 L TSH 0.484 Free T4 0.79 Imaging: ITS Impressions Chest X-Ray 10/23/17 00:00 CONCLUSION: The lungs are clear. Head CT 10/26/17 00:00 CONCLUSION: Slight interval increase in size of hemorrhage in the left paramedian posterior fossa. Liver Ultrasound 10/27/17 00:00 CONCLUSION: 1. Simple right renal cyst. 2. Otherwise normal examination of the abdomen. Physical Exam: Physical Exam CONSTITUTIONAL/GENERAL: Keeps eyes closed, but he follows commands. He answers some questions this is an adequately nourished patient, in no apparent distress. SKIN: No jaundice, rashes, or lesions. Warm and dry HEAD: Ventric in place with blood-tinged CSF . R parietal incision clean EYES: Extraocular motions intact. No scleral icterus. No injection or drainage. Fundi not examined. ENT: Nose without bleeding or purulent drainage. Moist mucosa CARDIOVASCULAR: Regular rate and rhythm without murmurs, gallops, or rubs. RESPIRATORY/CHEST: Symmetric, unlabored respirations. Clear to auscultation. Breath sounds equal bilaterally. No wheezes, rales, or rhonchi. GASTROINTESTINAL: Abdomen soft, non-tender, nondistended. No guarding. Bowel sounds present. Has an umbilical hernia GENITOURINARY: Without palpable bladder distension MUSCULOSKELETAL: Extremities without clubbing, cyanosis, or edema.. No calf tenderness. No mottling or clubbing. NEUROLOGICAL: Awake, follows commands. Right hand market development specialist much stronger compared to the left PSYCHIATRIC: Cooperative LINE: No evidence of infection Assessment and Plan - Plan IMPRESSION Bladder cancer, metastatic with brain mets per oncology notes: metastatic urothelial carcinoma. He has had a brain mass with pathology showing metastatic non-small cell carcinoma. S/P neurosurgical procedure C albicans ventriculitis Serratia, PSAE PNA Serratia bacteremia : source is likley PNA line (PICC), vs PNA vs surgical site infection sp 1 week of treatment Thrombocytopenia PLAN Continue Ampho B Intrathecal dw clinical Pharmacist Alpesh with RN Shahrzad he will place labels and instructions on syringes for dosing on Monday, Mon, Monday. 1. Solumedrol (Methylprednisone) Intrathecal 2. Intrathecal Ampho plus Intrathecal Solumedrol combo syringe. Continue IV ampho B Continue Diflucan IV. zaida Desir patient received Intrathecal Ampho yday post surgery through new ventric by . Monitor progress. zaida OROZCO
[2017-10-31] MEDS: Senna/Docusate Sodium 8.6/50 MG Tablet PO SCH ×2 (13:43→20:59)
[2017-10-31 14:22] LABS: Baso % (Auto) 0.5 % (0.0-2.0); Hematocrit 24.3 % (39.0-51.0); Hemoglobin 8.1 gm/dL (13.0-17.0); Lymph # (Auto) 0.3 th/mm3 (1.0-4.8); Lymph % (Auto) 7.5 % (9.0-44.0); Mean Corpuscular HGB Conc 33.1 % (32.0-36.0); Mean Corpuscular Hemoglobin 30.1 pg (27.0-34.0); Mean Corpuscular Volume 90.8 fL (80.0-100.0); Mean Platelet Volume 8.1 fL (7.0-11.0); Mono # (Auto) 0.1 th/mm3 (0.0-0.9); Mono % (Auto) 2.3 % (0.0-8.0); Neut # (Auto) 3.7 th/mm3 (1.8-7.7); Neut % (Auto) 89.7 % (16.0-70.0); Platelet Count 72 th/mm3 (150-450); Red Blood Count 2.68 mil/mm3 (4.50-5.90); Red Cell Distribution Width 20.5 % (11.6-17.2); White Blood Count 4.1 th/mm3 (4.0-11.0)
--- NOTE | 2017-10-31 14:29 | P.PNONC ---
Subjective Interval history: Afebrile Patient seen and examined earlier this morning States he feels "tired" Denies headache No bleeding Objective Vital Signs/Intake & Output: Vital Signs 10/30/17 15:26 10/30/17 15:30 10/30/17 15:45 Temperature 97.6 F Pulse Rate 65 66 58 L Respiratory Rate 16 20 20 Blood Pressure 111/50 L 112/64 111/59 L Pulse Oximetry 92 L 91 L 94 L 10/30/17 16:00 10/30/17 16:30 10/30/17 16:35 Temperature 97.2 F L 97.6 F Pulse Rate 57 L 53 L Respiratory Rate 20 20 Blood Pressure 110/63 113/61 Pulse Oximetry 94 L 98 93 L 10/30/17 18:00 10/30/17 20:00 10/30/17 20:16 Temperature 97.2 F L Pulse Rate 54 L 50 L Respiratory Rate 15 Blood Pressure 98/60 L Pulse Oximetry 100 100 10/30/17 22:00 10/31/17 00:00 10/31/17 02:00 Temperature 98.2 F Pulse Rate 62 52 L 48 L Respiratory Rate 14 Blood Pressure 119/62 Pulse Oximetry 100 10/31/17 04:00 10/31/17 06:00 10/31/17 08:00 Temperature 98.1 F 97.8 F Pulse Rate 62 55 L 52 L Respiratory Rate 16 20 Blood Pressure 109/61 119/62 Pulse Oximetry 100 99 10/31/17 08:29 10/31/17 10:00 10/31/17 12:00 Temperature 97.7 F Pulse Rate 55 L 51 L Respiratory Rate 22 Blood Pressure 92/58 L Pulse Oximetry 99 98 Intake & Output 10/30/17 10/31/17 10/31/17 18:59 06:59 18:59 Intake Total 3004.850 / 3004.850 284.850 / 284.850 200 / 200 Output Total 2054 / 2054 1450 / 1450 Balance 949.850 / 949.850 -1165.150 / -1165.150 200 / 200 Weight 198 lb 10.184 oz Intake: IV 1127.850 / 1127.850 4.850 / 4.850 200 / 200 SoluMEDROL Inj 5 MG D5W Inj 3.8 7.850 / 7.850 3.925 / 3.925 ML Amphotericin B Conv. Inj 0. 1 MG In Bag/Syringe 1 EACH @ As Directed IT [facility]WeFr KATHERINE Rx#: [id number] SoluMEDROL Inj 5 MG D5W Inj 0.8 0.925 / 0.925 ML In Bag/Syringe 1 EACH @ As Directed IT MoWeFr KATHERINE Rx#: [id number] Ambisome Inj 481.5 MG In D5W 320 / 320 Inj 320 ML @ 125 mls/hr IV.SIG Q24H KATHERINE Rx#:[id number] Diflucan 400 mg Premix Bag 400 800 / 800 ML @ 100 mls/hr IV.SIG Q24H KATHERINE Rx#:[id number] KCl 20 mEq Premix Inj 20 meq In 200 / 200 100 ml @ 50 mls/hr IV.SIG Q2H KATHERINE Rx#:[id number] Oral 30 / 30 280 / 280 Anesthesia Amount 1400 / 1400 Intake (Blood Product) Amt 447 / 447 Plt Pheresis B Leukoreduced 190 / 190 Unit [id number] Plt Pheresis B Leukoreduced 257 / 257 Unit [id number] Output: Urine 250 / 250 Estimated Blood Loss 5 / 5 Urine Amount (Catheter) 1800 / 1800 1450 / 1450 CATHETER 1800 / 1800 1450 / 1450 Wound Drainage 0 / 0 Right Occipital 0 / 0 Other: Date of Last Bowel Movement 10/27/17 10/27/17 10/30/17 # Bowel Movements 0 Result Diagrams: 11/01/17 06:56 11/01/17 06:56 Laboratory Results: Laboratory Results - last 24 hr 10/30/17 10/30/17 10/30/17 13:14 13:14 13:49 Sodium Potassium Chloride Carbon Dioxide Anion Gap BUN Creatinine Estimated GFR POC Glucose Random Glucose Calcium Phosphorus Magnesium Total Bilirubin AST ALT Alkaline Phosphatase Total Protein Albumin TSH Free T4 CSF Volume (1) CSF Supernat Color (1) CSF Gross Blood (1) CSF WBC (1) CSF RBC (1) CSF Neutrophils % CSF Lymphocytes % CSF Monocytes % CSF Histiocytes CSF Comment CSF Glucose CSF Total Protein Blood Type O Positive Antibody Screen Negative MTS Gel Crossmatch See Detail Bld Prod Order Comment 10/30/17 10/30/17 10/30/17 15:47 Unknown Unknown Sodium Potassium Chloride Carbon Dioxide Anion Gap BUN Creatinine Estimated GFR POC Glucose 139 H Random Glucose Calcium Phosphorus Magnesium Total Bilirubin AST ALT Alkaline Phosphatase Total Protein Albumin TSH Free T4 CSF Volume (1) 10.0 CSF Supernat Color (1) Slightly xanthochrom A CSF Gross Blood (1) 2+ A CSF WBC (1) 113 H CSF RBC (1) 54257 H CSF Neutrophils % 78 CSF Lymphocytes % 12 CSF Monocytes % 7 CSF Histiocytes 3 CSF Comment CSF Glucose 76 CSF Total Protein 65.6 H Blood Type Antibody Screen MTS Gel Crossmatch Bld Prod Order Comment 10/31/17 10/31/17 10/31/17 00:40 05:36 07:09 Sodium 151 H Potassium 2.0 L* Chloride 115 H Carbon Dioxide 22.5 Anion Gap 14 BUN 32 H Creatinine 0.58 L Estimated GFR Greater than 89 POC Glucose 217 H 163 H Random Glucose 155 H Calcium 8.0 L Phosphorus 3.9 Magnesium 1.4 L Total Bilirubin 1.4 H AST 52 H ALT 144 H Alkaline Phosphatase 106 Total Protein 5.1 L Albumin 2.6 L TSH 0.484 Free T4 0.79 CSF Volume (1) CSF Supernat Color (1) CSF Gross Blood (1) CSF WBC (1) CSF RBC (1) CSF Neutrophils % CSF Lymphocytes % CSF Monocytes % CSF Histiocytes CSF Comment CSF Glucose CSF Total Protein Blood Type Antibody Screen MTS Gel Crossmatch Bld Prod Order Comment 10/31/17 12:06 Sodium Potassium Chloride Carbon Dioxide Anion Gap BUN Creatinine Estimated GFR POC Glucose 185 H Random Glucose Calcium Phosphorus Magnesium Total Bilirubin AST ALT Alkaline Phosphatase Total Protein Albumin TSH Free T4 CSF Volume (1) CSF Supernat Color (1) CSF Gross Blood (1) CSF WBC (1) CSF RBC (1) CSF Neutrophils % CSF Lymphocytes % CSF Monocytes % CSF Histiocytes CSF Comment CSF Glucose CSF Total Protein Blood Type Antibody Screen MTS Gel Crossmatch Bld Prod Order Comment Culture Results: Microbiology 10/27/17 20:38 Fungal Smear - Final Cerebral Spinal Fluid - Lumbar Puncture No fungal elements seen Fungal Culture - Preliminary Lisa albicans 10/25/17 Unknown Fungal Smear - Final Cerebral Spinal Fluid - Shunt Fluid No fungal elements seen Fungal Culture - Preliminary Lisa albicans 10/30/17 Unknown Gram Stain - Final Shunt Fluid CSF Culture - Preliminary No growth in 24 hours 10/27/17 19:00 Gram Stain - Final Lumbar Puncture CSF Culture - Final Lisa albicans 10/25/17 Unknown Gram Stain - Final Shunt Fluid CSF Culture - Final Lisa albicans Medications: Active Medications Generic Name Dose Route Start Last Admin Trade Name Freq PRN Reason Stop Dose Admin Acetaminophen 650 mg 07/01/18 00:00 10/31/17 11:59 Tylenol PO 650 mg Q4H PRN Administration TEMP >101.5 Hydrocodone Bitart/Acetaminophen 1 tab 10/22/17 00:01 10/28/17 17:14 [place] 10/325 PO 1 tab Q4H PRN Administration PAIN SCALE 1-5 Hydrocodone Bitart/Acetaminophen 2 tab 10/22/17 00:00 10/28/17 21:43 [place] 10/325 PO 2 tab Q4H PRN Administration PAIN 6-10 Al Hydroxide/Mg Hydroxide 30 ml 10/22/17 06:00 10/31/17 06:35 Milk Of Magnesia Liq PO 30 ml Q12H KATHERINE Administration Artificial Tears 1 drop 10/22/17 06:00 10/31/17 13:53 Tears Naturale Opth Drops EACH EYE Not Given Q8HR KATHERINE Citalopram Hydrobromide 10 mg 10/30/17 09:15 10/31/17 08:15 Celexa PO 10 mg DAILY KATHERINE Administration Dexamethasone Sodium Phosphate 3 mg 10/22/17 00:00 10/31/17 11:56 Decadron Inj IV.PUSH 3 mg Q6HR KATHERINE Administration Diphenhydramine HCl 25 mg 10/22/17 22:30 10/30/17 22:17 Benadryl Inj IV.PUSH 25 mg Q24H KATHERINE Administration Enalapril Maleate 5 mg 10/22/17 00:00 10/31/17 12:16 Vasotec PO Not Given Q12H KATHERINE Fluconazole 400 mls @ 100 mls/hr 10/23/17 17:00 10/30/17 18:33 Diflucan 400 Mg Premix Bag IV.SIG Infused Q24H KATHERINE Infusion Amphotericin B 481.5 mg/ 320 mls @ 125 mls/hr 10/22/17 23:00 10/30/17 22:20 Dextrose IV.SIG 125 mls/hr Q24H KATHERINE Administration Potassium Chloride 20 meq in 100 mls @ 50 mls/hr 10/31/17 10:00 10/31/17 13: 52 Kcl 20 Meq Premix Inj IV.SIG 10/31/17 17:59 50 mls/hr Q2H KATHERINE Administration Methylprednisolone Sodium 0.925 mls @ 0 mls/hr 10/23/17 07:00 07/09/18 19:02 Succinate 5 mg/ Dextrose 0.8 IT Infused ml/ Syringe/Bag MoWeFr KATHERINE Infusion As Directed Methylprednisolone Sodium 3.925 mls @ 0 mls/hr 10/23/17 07:00 10/30/17 19:02 Succinate 5 mg/ Dextrose 3.8 IT Infused ml/ Amphotericin B 0.1 mg/ MoWeFr KATHERINE Infusion Syringe/Bag As Directed Insulin Detemir 6 unit 10/27/17 21:00 10/30/17 21:00 Levemir Inj SQ 6 unit HS KATHERINE Administration Insulin Human Regular 0 units 10/22/17 14:00 10/31/17 12:00 Novolin R Supplemental Scale SQ 2 units Q6HR KATHERINE Administration Protocol Lactulose 30 ml 10/22/17 09:00 10/31/17 13:53 Lactulose Liq PO Not Given TID KATHERINE Levetiracetam 500 mg 10/22/17 09:00 10/31/17 08:15 Keppra PO 500 mg Q12HR KATHERINE Administration Metoprolol Tartrate 50 mg 10/22/17 09:00 10/31/17 08:22 Lopressor PO Not Given Q12H KATHERINE Mirtazapine 15 mg 10/22/17 21:00 10/30/17 21:10 Remeron PO 15 mg HS KATHERINE Administration Pantoprazole Sodium 40 mg 10/22/17 09:00 10/31/17 08:18 Protonix Inj IV.PUSH 40 mg DAILY KATHERINE Administration Pantoprazole Sodium 40 mg 10/22/17 09:00 10/31/17 13:43 Protonix PO Not Given DAILY KATHERINE Phytonadione 5 mg 10/30/17 14:00 10/31/17 08:21 Mephyton Liq PO 11/01/17 09:01 5 mg DAILY KATHERINE Administration Potassium Bicarb/Potassium Chloride 50 meq 10/27/17 14:40 10/31/17 08:16 K-Lyte Cl Eff PO 50 meq UNSCH PRN Administration For Potassium 3.3 - 3.5 mEq/L Potassium Phosphate 2,000 mg 10/22/17 00:01 10/26/17 08:30 K-Phos Original PO 2,000 mg UNSCH PRN Administration SEE LABEL COMMENTS Senna/Docusate Sodium 2 tab 10/22/17 09:00 10/31/17 13:43 Dari-Colace PO Not Given BID KATHERINE Sodium Chloride 2 ml 10/22/17 09:00 10/31/17 08:22 Ns Flush IV.FLUSH 2 ml BID KATHERINE Administration Sodium Chloride 1 gm 10/22/17 09:00 10/31/17 13:52 Sodium Chloride PO 1 gm TID KATHERINE Administration Objective Remarks: GENERAL: Lethargic, middle-aged male resting in bed in no obvious distress SKIN: Warm and dry. HEAD: Normocephalic. Ventriculostomy to left side of scalp. Dressing covering right side. No oozing noted. EYES: No injection or drainage. NECK: Supple, trachea midline. CARDIOVASCULAR: Regular rate and rhythm without murmurs. RESPIRATORY: Breath sounds equal bilaterally. No accessory muscle use. GASTROINTESTINAL: Abdomen soft, non-tender, nondistended. EXTREMITIES: No cyanosis, or edema. MUSCULOSKELETAL: Adequate muscle tone. NEUROLOGICAL: Lethargic. Follows commands. PSYCHIATRIC: Patient seems depressed. He is answering questions via 1 or 2 word answers Assessment/Plan - Plan 52y/o male with metastatic urothelial carcinoma. He has had a brain mass with pathology showing metastatic non-small cell carcinoma. He is positive for Lisa infection in cerebrospinal fluid. Infectious disease is following. Hematology re-consulted for thrombocytopenia. 1. CBC, coags pending today. 2. Recommend platelet transfusion to keep platelets greater than 50,000 - Attending Statement The exam, history, and the medical decision-making described in the above note were completed with the assistance of the mid-level provider. I reviewed and agree with the findings presented. I attest that I had a [id number] encounter with the patient on the same day, and personally performed and documented my assessment and findings in the medical record. C/O LEE, no bleeding. plat are >50K, monitor cbc.
[2017-10-31 14:34] LABS: Activated Partial Thrombo Time 20.7 sec (24.3-30.1); INR 1.3 Ratio; Prothrombin Time 13.1 sec (9.8-11.6)
--- NOTE | 2017-10-31 14:45 | P.PNNS ---
Subjective Interval history: 10/31: underwent replacement of left ventriculostomy drain, removal of right ventriculostomy drain. repeat CSF cultures pending. dose of intrathecal ampho given in OR yesterday. <Marivel Desir - Last Filed: 10/31/17 14:40> Physical Exam Vital signs: Vital Signs 10/30/17 15:26 10/30/17 15:30 10/30/17 15:45 Temperature 97.6 F Pulse Rate 65 66 58 L Respiratory Rate 16 20 20 Blood Pressure 111/50 L 112/64 111/59 L Pulse Oximetry 92 L 91 L 94 L 10/30/17 16:00 10/30/17 16:30 10/30/17 16:35 Temperature 97.2 F L 97.6 F Pulse Rate 57 L 53 L Respiratory Rate 20 20 Blood Pressure 110/63 113/61 Pulse Oximetry 94 L 98 93 L 10/30/17 18:00 10/30/17 20:00 10/30/17 20:16 Temperature 97.2 F L Pulse Rate 54 L 50 L Respiratory Rate 15 Blood Pressure 98/60 L Pulse Oximetry 100 100 10/30/17 22:00 10/31/17 00:00 10/31/17 02:00 Temperature 98.2 F Pulse Rate 62 52 L 48 L Respiratory Rate 14 Blood Pressure 119/62 Pulse Oximetry 100 10/31/17 04:00 10/31/17 06:00 10/31/17 08:00 Temperature 98.1 F 97.8 F Pulse Rate 62 55 L 52 L Respiratory Rate 16 20 Blood Pressure 109/61 119/62 Pulse Oximetry 100 99 10/31/17 08:29 10/31/17 10:00 10/31/17 12:00 Temperature 97.7 F Pulse Rate 55 L 51 L Respiratory Rate 22 Blood Pressure 92/58 L Pulse Oximetry 99 98 Intake & Output 10/30/17 10/31/17 10/31/17 18:59 06:59 18:59 Intake Total 3004.850 / 3004.850 284.850 / 284.850 200 / 200 Output Total 2054 1450 / 1450 Balance 949.850 / 949.850 -1165.150 / -1165.150 200 / 200 Weight 90.1 kg Intake: IV 1127.850 / 1127.850 4.850 / 4.850 200 / 200 SoluMEDROL Inj 5 MG D5W Inj 3.8 7.850 / 7.850 3.925 / 3.925 ML Amphotericin B Conv. Inj 0. 1 MG In Bag/Syringe 1 EACH @ As Directed IT [facility] KATHERINE Rx#: [id number] SoluMEDROL Inj 5 MG D5W Inj 0.8 0.925 / 0.925 ML In Bag/Syringe 1 EACH @ As Directed IT [facility] KATHERINE Rx#: [id number] Ambisome Inj 481.5 MG In D5W 320 / 320 Inj 320 ML @ 125 mls/hr IV.SIG Q24H KATHERINE Rx#:[id number] Diflucan 400 mg Premix Bag 400 800 / 800 ML @ 100 mls/hr IV.SIG Q24H KATHERINE Rx#:[id number] KCl 20 mEq Premix Inj 20 meq In 200 / 200 100 ml @ 50 mls/hr IV.SIG Q2H KATHERINE Rx#:[id number] Oral 30 / 30 280 / 280 Anesthesia Amount 1400 / 1400 Intake (Blood Product) Amt 447 / 447 Plt Pheresis B Leukoreduced 190 / 190 Unit [id number] Plt Pheresis B Leukoreduced 257 / 257 Unit [id number] Output: Urine 250 / 250 Estimated Blood Loss 5 / 5 Urine Amount (Catheter) 1800 / 1800 1450 / 1450 CATHETER 1800 / 1800 1450 / 1450 Wound Drainage 0 / 0 Right Occipital 0 / 0 Other: Date of Last Bowel Movement 10/27/17 10/27/17 10/30/17 # Bowel Movements 0 Narrative: Awake, lethargic. Mood and affect decreased. Left ventriculostomy draining well at 0 cm H20. Occipital and upper cervical wound healing well, sutures in - Urinary Catheter Management Condom Cath placed during this visit: yes Reason for continuing: Hourly intake/output Insertion date: 10/30/17 Insertion time: 13:34 CATHETER Cath placed during this visit: yes Reason for continuing: Other continuation reason Insertion date: 10/30/17 <Marivel Desir - Last Filed: 10/31/17 14:40> Vital signs: Vital Signs 10/30/17 20:00 10/30/17 20:16 10/30/17 22:00 Temperature 97.2 F L Pulse Rate 50 L 62 Respiratory Rate 15 Blood Pressure 98/60 L Pulse Oximetry 100 100 10/31/17 00:00 10/31/17 02:00 10/31/17 04:00 Temperature 98.2 F 98.1 F Pulse Rate 52 L 48 L 62 Respiratory Rate 14 16 Blood Pressure 119/62 109/61 Pulse Oximetry 100 100 10/31/17 06:00 10/31/17 08:00 10/31/17 08:29 Temperature 97.8 F Pulse Rate 55 L 52 L Respiratory Rate 20 Blood Pressure 119/62 Pulse Oximetry 99 99 10/31/17 10:00 10/31/17 12:00 Temperature 97.7 F Pulse Rate 55 L 51 L Respiratory Rate 22 Blood Pressure 92/58 L Pulse Oximetry 98 Intake & Output 10/30/17 10/31/17 10/31/17 18:59 06:59 18:59 Intake Total 3004.850 / 3004.850 284.850 / 284.850 300 / 300 Output Total 2054 / 2054 1450 / 1450 Balance 949.850 / 949.850 -1165.150 / -1165.150 300 / 300 Weight 90.1 kg Intake: IV 1127.850 / 1127.850 4.850 / 4.850 300 / 300 SoluMEDROL Inj 5 MG D5W Inj 3.8 7.850 / 7.850 3.925 / 3.925 ML Amphotericin B Conv. Inj 0. 1 MG In Bag/Syringe 1 EACH @ As Directed IT [facility] KATHERINE Rx#: [id number] SoluMEDROL Inj 5 MG D5W Inj 0.8 0.925 / 0.925 ML In Bag/Syringe 1 EACH @ As Directed IT [facility] KATHERINE Rx#: [id number] Ambisome Inj 481.5 MG In D5W 320 / 320 Inj 320 ML @ 125 mls/hr IV.SIG Q24H KATHERINE Rx#:[id number] Diflucan 400 mg Premix Bag 400 800 / 800 ML @ 100 mls/hr IV.SIG Q24H KATHERINE Rx#:[id number] KCl 20 mEq Premix Inj 20 meq In 300 / 300 100 ml @ 50 mls/hr IV.SIG Q2H KATHERINE Rx#:[id number] Oral 30 / 30 280 / 280 Anesthesia Amount 1400 / 1400 Intake (Blood Product) Amt 447 / 447 Plt Pheresis B Leukoreduced 190 / 190 Unit [id number] Plt Pheresis B Leukoreduced 257 / 257 Unit [id number] Output: Urine 250 / 250 Estimated Blood Loss 5 / 5 Urine Amount (Catheter) 1800 / 1800 1450 / 1450 CATHETER 1800 / 1800 1450 / 1450 Wound Drainage 0 / 0 Right Occipital 0 / 0 Other: Date of Last Bowel Movement 10/27/17 10/27/17 10/30/17 # Bowel Movements 0 - Urinary Catheter Management Condom Cath placed during this visit: no CATHETER Cath placed during this visit: no <Yomi Horvath - Last Filed: 10/31/17 18:31> Assessment and Plan - Assessment (1) Cerebral ventriculitis Code(s): G04.90 - Encephalitis and encephalomyelitis, unspecified Status: Acute (2) Metastatic urothelial carcinoma Code(s): C79.10 - Secondary malignant neoplasm of unspecified urinary organs Status: Acute - Plan cont ventriculostomy draining neuro checks Infectious Disease mgt discontinue occipital sutures restart therapy dw nursing <Marivel Desir - Last Filed: 10/31/17 14:40> - Assessment (1) Cerebral ventriculitis Code(s): G04.90 - Encephalitis and encephalomyelitis, unspecified Status: Acute (2) Metastatic urothelial carcinoma Code(s): C79.10 - Secondary malignant neoplasm of unspecified urinary organs Status: Acute - Plan The exam, history, and the medical decision-making described in the above note were completed with the assistance of the mid-level provider. I reviewed and agree with the findings presented. I attest that I had a [id number] encounter with the patient on the same day, and personally performed and documented my assessment and findings in the medical record. <Yomi Horvath - Last Filed: 10/31/17 18:31>
[2017-10-31 15:12] LABS: Platelet Morphology Normal (Normal)
--- NOTE | 2017-10-31 15:59 | P.PN ---
Subjective Interval history: Follow-up visit qi albicans ventriculitis, status post craniotomy, status post ventriculostomy tube replacement. Patient seen and examined today. Awake and alert. Minimal verbalization but able to follow commands. Denies pain or discomfort. As per nursing, ventriculostomy is not draining. Neurosurgery is aware. They placed the ventriculostomy drain down and it is tested to be patent however after putting it back it is still not draining. Patient appears to be comfortable denies any headache. Denies nausea, vomiting. Physical Exam Vital signs: Vital Signs 10/30/17 16:00 10/30/17 16:30 10/30/17 16:35 Temperature 97.2 F L 97.6 F Pulse Rate 57 L 53 L Respiratory Rate 20 20 Blood Pressure 110/63 113/61 Pulse Oximetry 94 L 98 93 L 10/30/17 18:00 10/30/17 20:00 10/30/17 20:16 Temperature 97.2 F L Pulse Rate 54 L 50 L Respiratory Rate 15 Blood Pressure 98/60 L Pulse Oximetry 100 100 10/30/17 22:00 10/31/17 00:00 10/31/17 02:00 Temperature 98.2 F Pulse Rate 62 52 L 48 L Respiratory Rate 14 Blood Pressure 119/62 Pulse Oximetry 100 10/31/17 04:00 10/31/17 06:00 10/31/17 08:00 Temperature 98.1 F 97.8 F Pulse Rate 62 55 L 52 L Respiratory Rate 16 20 Blood Pressure 109/61 119/62 Pulse Oximetry 100 99 10/31/17 08:29 10/31/17 10:00 10/31/17 12:00 Temperature 97.7 F Pulse Rate 55 L 51 L Respiratory Rate 22 Blood Pressure 92/58 L Pulse Oximetry 99 98 Intake & Output 10/30/17 10/31/17 10/31/17 18:59 06:59 18:59 Intake Total 3004.850 / 3004.850 284.850 / 284.850 300 / 300 Output Total 2054 1450 / 1450 Balance 949.850 / 949.850 -1165.150 / -1165.150 300 / 300 Weight 90.1 kg Intake: IV 1127.850 / 1127.850 4.850 / 4.850 300 / 300 SoluMEDROL Inj 5 MG D5W Inj 3.8 7.850 / 7.850 3.925 / 3.925 ML Amphotericin B Conv. Inj 0. 1 MG In Bag/Syringe 1 EACH @ As Directed IT [facility] KATHERINE Rx#: [id number] SoluMEDROL Inj 5 MG D5W Inj 0.8 0.925 / 0.925 ML In Bag/Syringe 1 EACH @ As Directed IT [facility] KATHERINE Rx#: [id number] Ambisome Inj 481.5 MG In D5W 320 / 320 Inj 320 ML @ 125 mls/hr IV.SIG Q24H KATHERINE Rx#:[id number] Diflucan 400 mg Premix Bag 400 800 / 800 ML @ 100 mls/hr IV.SIG Q24H KATHERINE Rx#:[id number] KCl 20 mEq Premix Inj 20 meq In 300 / 300 100 ml @ 50 mls/hr IV.SIG Q2H KATHERINE Rx#:[id number] Oral 30 / 30 280 / 280 Anesthesia Amount 1400 / 1400 Intake (Blood Product) Amt 447 / 447 Plt Pheresis B Leukoreduced 190 / 190 Unit [id number] Plt Pheresis B Leukoreduced 257 / 257 Unit [id number] Output: Urine 250 / 250 Estimated Blood Loss 5 / 5 Urine Amount (Catheter) 1800 / 1800 1450 / 1450 CATHETER 1800 / 1800 1450 / 1450 Wound Drainage 0 / 0 Right Occipital 0 / 0 Other: Date of Last Bowel Movement 10/27/17 10/27/17/01/09 # Bowel Movements 0 Narrative: GENERAL: This is a well-nourished, well-developed patient, in no apparent distress. SKIN: Warm and dry. Ventriculostomy in place, head dressing clean dry and intact. HEENT: Normocephalic. Pupils equal round. Nose without bleeding. Airway patent. Ventriculostomy minimal drain serous NECK: Trachea midline. CARDIOVASCULAR: Regular rate and rhythm without murmurs, gallops, or rubs. RESPIRATORY: Clear to auscultation. Breath sounds equal bilaterally. No wheezes , rales, or rhonchi. GASTROINTESTINAL: Abdomen soft, non-tender, umbilical hernia distention. Bowel Sounds normoactive x4. Lemus yellow urine. MUSCULOSKELETAL: Extremities without clubbing, cyanosis, or edema. NEUROLOGICAL: Awake and alert. Flat affect. Following commands. - Urinary Catheter Management Condom Cath placed during this visit: yes Reason for continuing: Hourly intake/output Insertion date: 10/30/17 Insertion time: 13:34 CATHETER Cath placed during this visit: yes Reason for continuing: Other continuation reason Insertion date: 10/30/17 Results - Labs CBC & Chem 7: 10/31/17 13:58 10/31/17 07:09 Laboratory Results - last 24 hr 10/30/17 10/30/17 10/31/17 Unknown Unknown 00:40 WBC RBC Hgb Hct MCV MCH MCHC RDW Plt Count MPV Prelim Diff (Auto) Neut % (Auto) Lymph % (Auto) [place] % (Auto) Eos % (Auto) Baso % (Auto) Neut # (Auto) Lymph # (Auto) [place] # (Auto) Eos # (Auto) Baso # (Auto) WBC Differential Diff Scan Differential Comment Platelet Estimate Platelet Morphology PT INR APTT Fibrinogen Sodium Potassium Chloride Carbon Dioxide Anion Gap BUN Creatinine Estimated GFR POC Glucose 217 H Random Glucose Calcium Phosphorus Magnesium Total Bilirubin AST ALT Alkaline Phosphatase Total Protein Albumin TSH Free T4 CSF Volume (1) 10.0 CSF Supernat Color (1) Slightly xanthochrom A CSF Gross Blood (1) 2+ A CSF WBC (1) 113 H CSF RBC (1) 90739 H CSF Neutrophils % 78 CSF Lymphocytes % 12 CSF Monocytes % 7 CSF Histiocytes 3 CSF Comment CSF Glucose 76 CSF Total Protein 65.6 H 10/31/17 10/31/17 10/31/17 05:36 07:09 12:06 WBC RBC Hgb Hct MCV MCH MCHC RDW Plt Count MPV Prelim Diff (Auto) Neut % (Auto) Lymph % (Auto) [place] % (Auto) Eos % (Auto) Baso % (Auto) Neut # (Auto) Lymph # (Auto) [place] # (Auto) Eos # (Auto) Baso # (Auto) WBC Differential Diff Scan Differential Comment Platelet Estimate Platelet Morphology PT INR APTT Fibrinogen Sodium 151 H Potassium 2.0 L* Chloride 115 H Carbon Dioxide 22.5 Anion Gap 14 BUN 32 H Creatinine 0.58 L Estimated GFR Greater than 89 POC Glucose 163 H 185 H Random Glucose 155 H Calcium 8.0 L Phosphorus 3.9 Magnesium 1.4 L Total Bilirubin 1.4 H AST 52 H ALT 144 H Alkaline Phosphatase 106 Total Protein 5.1 L Albumin 2.6 L TSH 0.484 Free T4 0.79 CSF Volume (1) CSF Supernat Color (1) CSF Gross Blood (1) CSF WBC (1) CSF RBC (1) CSF Neutrophils % CSF Lymphocytes % CSF Monocytes % CSF Histiocytes CSF Comment CSF Glucose CSF Total Protein 10/31/17 10/31/17 13:58 13:58 WBC 4.1 RBC 2.68 L Hgb 8.1 L Hct 24.3 L MCV 90.8 MCH 30.1 MCHC 33.1 RDW 20.5 H Plt Count 72 L D MPV 8.1 Prelim Diff (Auto) Slide review pending Neut % (Auto) 89.7 H Lymph % (Auto) 7.5 L [place] % (Auto) 2.3 Eos % (Auto) 0.0 Baso % (Auto) 0.5 Neut # (Auto) 3.7 Lymph # (Auto) 0.3 L [place] # (Auto) 0.1 Eos # (Auto) 0.0 Baso # (Auto) 0.0 WBC Differential . Diff Scan Auto diff confirmed Differential Comment . Platelet Estimate Low L Platelet Morphology Normal PT 13.1 H INR 1.3 APTT 20.7 L Fibrinogen 125 L Sodium Potassium Chloride Carbon Dioxide Anion Gap BUN Creatinine Estimated GFR POC Glucose Random Glucose Calcium Phosphorus Magnesium Total Bilirubin AST ALT Alkaline Phosphatase Total Protein Albumin TSH Free T4 CSF Volume (1) CSF Supernat Color (1) CSF Gross Blood (1) CSF WBC (1) CSF RBC (1) CSF Neutrophils % CSF Lymphocytes % CSF Monocytes % CSF Histiocytes CSF Comment CSF Glucose CSF Total Protein Microbiology 10/27/17 20:38 Cerebral Spinal Fluid - Lumbar Puncture Fungal Smear - Final No fungal elements seen 10/27/17 20:38 Cerebral Spinal Fluid - Lumbar Puncture Fungal Culture - Preliminary Qi albicans 10/25/17 Unknown Cerebral Spinal Fluid - Shunt Fluid Fungal Smear - Final No fungal elements seen 10/25/17 Unknown Cerebral Spinal Fluid - Shunt Fluid Fungal Culture - Preliminary Qi albicans 10/30/17 Unknown Shunt Fluid Gram Stain - Final 10/30/17 Unknown Shunt Fluid CSF Culture - Preliminary No growth in 24 hours - Procedures 09/24>s/p stereotactic image guided suboccipital craniectomy, C1 laminectomy, microsurgical resection of metastatic carcinoma, duraplasty - 08/23>Right frontal Catracho hole with placement of a ventriculostomy catheter removed 09/22 Left 4.4 cm cerebellar brain mass with vasogenic edema s/p EVD 09/29 for base of skull CSF leak vs. seroma.s/p Catracho hole with ventriculostomy placement 10/10 for CSF leak 10/30 Left frontal catracho hole with placement of ventriculostomy catheter Assessment and Plan - Plan This is a 52-year-old male who was admitted to [facility] on September 11, 2017 w/ h/o of atrial flutter status post ablation by Dr. Mantilla, systolic heart failure with an ejection fraction of 25%, hypertension, hyperlipidemia, and bladder cancer with chemo radiation in 2015. He presented to the ED after he slipped and fell. CT was significant for a mass in the left posterior fossa. MRI brain relieved with a left cerebellar mass 4.4 cm with vasogenic edema. Admitted to [facility] for Dexamethasone IV. Laceration of the head sutured. Ventriculostomy drain placed.The tube was clamped. Patient developed significant headaches. On September 25 he had reexploration of the posterior fossa craniotomy, evacuation of cerebellar clot, duraplasty with Dura-Guard enterocele , placement of epidural drain secondary to cerebral hemorrhage. Patient later became acutely hypoxic. CT of brain showed persistent edema with midline shift. Urine culture shows gram-negative rods and the patient was started on Rocephin. By October 07 the patient was extubated. On October 10 patient had a CSF leak from previous craniotomy site. He went back to the OR. He had a bur hole placed by Dr. Horvath. He was transferred back to the ICU placed on mechanical ventilation. CSF is growing yeast. Dr. Gibbons was consulted. On October 12 he was extubated. Care was transferred to hospitalist on October 13. Ventriculitis, Qi albicans Serratia, PSAE pneumonia Serratia bacteremia likely secondary to pneumonia -Status post 1 week of treatment, continue intrathecal amphotericin B 3x/ week and intrathecal solumedrol, intravenous amphotericin B and Diflucan IV. Further intrathecal amphotericin B and imaging per infectious disease -Continue with fluconazole IV -ID following appreciate recommendations -10/30/17 Ventriculostomy replacement done by Dr. Horvath. Patent but not draining. Patient without LEE Bladder cancer, metastatic with brain metastases -MRI of brain revealed that the left cerebral mass was 4.4 cm with vasogenic edema. -Ventriculostomy management per neurosurgery. Status post epidural drain placement, bur hole placement. -Status post chemotherapy. -Continue seizure prophylaxis with Keppra. Still on Decadron. Thrombocytopenia, anemia, leukopenia -Status post platelet transfusion, platelet 52-->72 -No bleeding. Hemoglobin is stable. -Hematology following. Follow coagulation studies, HIT negative. -Liver ultrasound done, unremarkable. CHF, history of A. Flutter, hypertension -Status post ablation by Dr. Mantilla 07/09, currently normal sinus rhythm -Recent ECHO 09/16/17 EF45-50%, previously 25% -Nuclear stress test showed no ischemia. -Continue Lopressor, Vasotec, hydralazine, cardiology following. Hypokalemia Hypomagnesemia -Electrolyte protocol. -Monitor BMP Hyperglycemia, likely steroid related -Levemir, sliding scale insulin. -hemoglobin A1c 4.5 Bilateral renal cysts 3.7 cm on the right and 2.9 cm on the left superior pole -Follow-up in the outpatient -Nephrology Pulmonary nodule -repeat CT scan in 6 months as outpatient. DVT Prophylaxis per neurosurgery, lovenox 40 mg daily started 10/12 , do not resume apixaban per industrial psychology teacher
[2017-10-31 16:00] LABS: Hemoglobin A1c 4.9 % (4.3-6.0)
[2017-10-31] MEDS: Magnesium Oxide 400 MG Tablet PO PRN (16:07)
--- NOTE | 2017-10-31 16:50 | P.DIET ---
Nutritional Evaluation Type of nutrition evaluation: follow-up Nutrition consult regarding: Tube Feeding (TFing stopped 10/06.) Subjective Subjective Comments: Pt refused brkfst and lunch today. Only eating applesauce. Objective - Diagnosis Intracranial Mass, Fall, Facial Injury - Objective Body Weight Used for Calculations: Upper end of IBW Energy Needs - Lower Range (kCal/kg): 25 Energy Needs - Upper Range (kCal/kg): 30 Lower Limit kCal/kg (kCals): 1,775 Upper Limit kCal/kg (kCals): 2,130 Lower Limit Protein Factor (Grams per Kg): 1.2 Upper Limit Protein Factor (Grams per Kg): 1.6 Lower Protein Needs (Protein): 85 Upper Protein Needs (Protein): 114 Dietitian Reviewed in Medical Record: Current diet, Curent medications, Intake & Output, Labs, Medical history, Tube feeding Diet Order: Mechanical Soft with chopped meat, nectar thickened liquids Oral Diet Intake Amount: Poor <50% Speech Therapy Recommendations: Yes Objective Comments: PMH Includes: AFib, Systolic Heart Failure, HTN, hyperlipidemia, bladder CA CBW = 90.1 kg LBM 10/30 Feeding - Current PO Supplement Current Supplement: Glucerna Shake Current Frequency of Supplement: Three times a day Current kCals Provided by Supplement: 220 Current Protein Provided by Supplement: 10 Assessment Assessment: Pt remains at high nutrition risk with inadequate po intake. Review of wts since admission indicate ~45.5# weight loss, although it is noted that the pt's BMI is 32.1 and wt is still above IBW range. Will continue Glucerna Supplements. Also recommend TF restart be considered if it is consistent with goals of care. Recommendations: 1. Diet texture per ST. 2000 ADA diet restriction if desired for glucose control 2. Continue Glucerna Shakes 3. Consider TF to prevent further weight loss Dietitian to Monitor: Lab values, Glucose level, Supplement acceptance, Intake & Output, Diet tolerance, Weight change, PO Intake
[2017-10-31] MEDS: Insulin Detemir Inj 1,000 UNIT/10 ML Vial SQ SCH (20:58)
[2017-10-31] MEDS: Mirtazapine 15 MG Tablet PO SCH (20:59)
[2017-11-01] MEDS: Insulin NovoLIN Regular Correctional Sugar Inj SQ SCH ×3 (05:32→13:26)
[2017-11-01] MEDS: DEXTROSE 5% IV.SIG SCH ×4 (06:48→22:15)
[2017-11-01] MEDS: WATER IV.SIG SCH ×4 (06:48→22:15)
[2017-11-01] MEDS: AMPHOTERICIN B LIPOSOMAL IV.SIG SCH ×4 (06:48→22:15)
[2017-11-01] MEDS: Artificial Tears Opth Drops 15 ML Bottle EACH EYE SCH ×3 (06:50→13:10)
[2017-11-01 07:31] LABS: Baso % (Auto) 0.4 % (0.0-2.0); Hematocrit 25.1 % (39.0-51.0); Hemoglobin 8.4 gm/dL (13.0-17.0); Lymph # (Auto) 0.4 th/mm3 (1.0-4.8); Lymph % (Auto) 11.6 % (9.0-44.0); Mean Corpuscular HGB Conc 33.5 % (32.0-36.0); Mean Corpuscular Hemoglobin 30.2 pg (27.0-34.0); Mean Corpuscular Volume 90.2 fL (80.0-100.0); Mean Platelet Volume 8.5 fL (7.0-11.0); Mono # (Auto) 0.1 th/mm3 (0.0-0.9); Mono % (Auto) 1.8 % (0.0-8.0); Neut # (Auto) 3.2 th/mm3 (1.8-7.7); Neut % (Auto) 86.2 % (16.0-70.0); Platelet Count 57 th/mm3 (150-450); Red Blood Count 2.78 mil/mm3 (4.50-5.90); Red Cell Distribution Width 20.2 % (11.6-17.2); White Blood Count 3.8 th/mm3 (4.0-11.0)
[2017-11-01 07:35] LABS: INR 1.2 Ratio; Prothrombin Time 12.4 sec (9.8-11.6)
[2017-11-01 07:50] LABS: Alanine Aminotransferase 167 U/L (12-78); Albumin 2.6 g/dL (3.4-5.0); Anion Gap 13 meq/L (5-15); Aspartate Aminotransferase 45 U/L (15-37); Blood Urea Nitrogen 32 mg/dL (7-18); Calcium 7.8 mg/dL (8.5-10.1); Carbon Dioxide 25.5 meq/L (21.0-32.0); Chloride 114 meq/L (98-107); Glomerular Filtration Rate Greater Than 89 mL/min (>89); Glucose,Random 169 mg/dL (74-106); Magnesium 1.3 mg/dL (1.5-2.5); Sodium 152 meq/L (136-145)
[2017-11-01 07:53] LABS: Potassium 1.9 meq/L (3.5-5.1)
[2017-11-01 07:55] LABS: Alkaline Phosphatase 112 U/L (45-117)
[2017-11-01] MEDS ORDERED: Magnesium Oxide 400 MG Tablet PO ONE (08:06)
[2017-11-01 08:44] LABS: Ovalocytes 1+; Platelet Morphology Normal (Normal); Polychromasia 2.1 % (0.0-1.9); Tear Drop Cells 1+
[2017-11-01] MEDS: Potassium Chlor 20 mEq Premix 20 MEQ/100 ML PIGGYBACK IV.SIG SCH ×4 (09:17→15:45)
[2017-11-01] MEDS: levETIRAcetam 500 MG Tablet PO SCH ×2 (09:18→20:05)
[2017-11-01] MEDS: Sodium Chloride 1 GM Tablet PO SCH ×2 (09:18→13:07)
[2017-11-01] MEDS: Magnesium Oxide 400 MG Tablet PO PRN (09:18)
[2017-11-01] MEDS: Citalopram 20 MG Tablet PO SCH (09:18)
[2017-11-01] MEDS: Phytonadione 5 MG/SWFI 5 ML Oral Syringe PO SCH (09:19)
[2017-11-01] MEDS: Pantoprazole Inj 40 MG Vial IV.PUSH SCH (09:19)
--- NOTE | 2017-11-01 11:29 | P.PNIM ---
Subjective Interval history: Potassium level is critically low this morning. Replacements provided. No complaints from the patient. Physical Exam Vital signs: Vital Signs 10/31/17 12:00 10/31/17 14:00 10/31/17 16:00 Temperature 97.7 F 98.0 F Pulse Rate 51 L 57 L 64 Respiratory Rate 22 21 Blood Pressure 92/58 L 116/66 Pulse Oximetry 98 97 10/31/17 18:00 10/31/17 20:00 10/31/17 21:20 Temperature 97.8 F Pulse Rate 77 82 Respiratory Rate 20 Blood Pressure 123/70 Pulse Oximetry 98 98 10/31/17 22:00 11/01/17 00:00 11/01/17 04:00 Temperature 98.1 F 97.9 F Pulse Rate 77 90 71 Respiratory Rate 23 15 Blood Pressure 128/71 122/74 Pulse Oximetry 98 98 11/01/17 08:53 Temperature Pulse Rate Respiratory Rate Blood Pressure Pulse Oximetry 96 Intake & Output 10/31/17 11/01/17 11/01/17 18:59 06:59 18:59 Intake Total 1220 / 1220 Output Total 905 / 905 1010 / 1010 Balance 315 / 315 -1010 / -1010 Intake: IV 300 / 300 KCl 20 mEq Premix Inj 20 meq In 300 / 300 100 ml @ 50 mls/hr IV.SIG Q2H KATHERINE Rx#:[id number] Oral 480 / 480 Other 440 / 440 Output: Urine Amount (Catheter) 900 / 900 1000 / 1000 CATHETER 900 / 900 1000 / 1000 Wound Drainage 10 / 10 Right Occipital 10 / 10 Intracranial Drainage 5 / 5 Right Temporoparietal 5 / 5 Other: Date of Last Bowel Movement 10/30/17 10/30/17 # Bowel Movements 0 Narrative: GENERAL: NAD, A&Ox3 HEAD: Normocephalic. Head is bandaged. Ventriculostomy tube in place. NECK: Supple, trachea midline. No lymphadenopathy. EYES: No scleral icterus. No injection or drainage. CARDIOVASCULAR: Regular rate and rhythm without murmurs, gallops, or rubs. RESPIRATORY: Breath sounds equal bilaterally. No accessory muscle use. GASTROINTESTINAL: Abdomen soft, non-tender, nondistended. MUSCULOSKELETAL: No cyanosis, or edema. SKIN: Warm and dry. NEURO: No focal neurological deficits. - Urinary Catheter Management Condom Cath placed during this visit: yes Reason for continuing: Hourly intake/output Insertion date: 10/30/17 Insertion time: 13:34 CATHETER Cath placed during this visit: yes Reason for continuing: Other continuation reason Insertion date: 10/30/17 Results - Labs CBC & Chem 7: 11/01/17 06:56 11/01/17 06:56 Laboratory Results - last 24 hr 10/30/17 10/31/17 10/31/17 Unknown 12:06 13:58 WBC 4.1 RBC 2.68 L Hgb 8.1 L Hct 24.3 L MCV 90.8 MCH 30.1 MCHC 33.1 RDW 20.5 H Plt Count 72 L D MPV 8.1 Prelim Diff (Auto) Slide review pending Neut % (Auto) 89.7 H Lymph % (Auto) 7.5 L Mobile % (Auto) 2.3 Eos % (Auto) 0.0 Baso % (Auto) 0.5 Neut # (Auto) 3.7 Lymph # (Auto) 0.3 L Mobile # (Auto) 0.1 Eos # (Auto) 0.0 Baso # (Auto) 0.0 WBC Differential . Diff Scan Auto diff confirmed Differential Comment . Platelet Estimate Low L Platelet Morphology Normal Polychromasia Tear Drop Cells Ovalocytes PT INR APTT Fibrinogen Sodium Potassium Chloride Carbon Dioxide Anion Gap BUN Creatinine Estimated GFR POC Glucose 185 H Random Glucose Hemoglobin A1c Calcium Magnesium Total Bilirubin AST ALT Alkaline Phosphatase Total Protein Albumin CSF Comment 10/31/17 10/31/17 10/31/17 13:58 13:58 17:26 WBC RBC Hgb Hct MCV MCH MCHC RDW Plt Count MPV Prelim Diff (Auto) Neut % (Auto) Lymph % (Auto) [place] % (Auto) Eos % (Auto) Baso % (Auto) Neut # (Auto) Lymph # (Auto) Mobile # (Auto) Eos # (Auto) Baso # (Auto) WBC Differential Diff Scan Differential Comment Platelet Estimate Platelet Morphology Polychromasia Tear Drop Cells Ovalocytes PT 13.1 H INR 1.3 APTT 20.7 L Fibrinogen 125 L Sodium Potassium Chloride Carbon Dioxide Anion Gap BUN Creatinine Estimated GFR POC Glucose 252 H Random Glucose Hemoglobin A1c 4.9 Calcium Magnesium Total Bilirubin AST ALT Alkaline Phosphatase Total Protein Albumin CSF Comment 11/01/17 11/01/17 11/01/17 06:56 06:56 06:56 WBC 3.8 L RBC 2.78 L Hgb 8.4 L Hct 25.1 L MCV 90.2 MCH 30.2 MCHC 33.5 RDW 20.2 H Plt Count 57 L MPV 8.5 Prelim Diff (Auto) Slide review pending Neut % (Auto) 86.2 H Lymph % (Auto) 11.6 Mobile % (Auto) 1.8 Eos % (Auto) 0.0 Baso % (Auto) 0.4 Neut # (Auto) 3.2 Lymph # (Auto) 0.4 L Mobile # (Auto) 0.1 Eos # (Auto) 0.0 Baso # (Auto) 0.0 WBC Differential . Diff Scan Auto diff confirmed Differential Comment . Platelet Estimate Low L Platelet Morphology Normal Polychromasia 2.1 H Tear Drop Cells 1+ H Ovalocytes 1+ H PT 12.4 H INR 1.2 APTT Fibrinogen 136 L Sodium 152 H Potassium 1.9 L* Chloride 114 H Carbon Dioxide 25.5 Anion Gap 13 BUN 32 H Creatinine 0.63 Estimated GFR Greater than 89 POC Glucose Random Glucose 169 H Hemoglobin A1c Calcium 7.8 L Magnesium 1.3 L Total Bilirubin 0.9 AST 45 H ALT 167 H Alkaline Phosphatase 112 Total Protein 5.0 L Albumin 2.6 L CSF Comment Microbiology 10/30/17 Unknown Shunt Fluid Gram Stain - Final 10/30/17 Unknown Shunt Fluid CSF Culture - Preliminary No growth in 48 hours 10/27/17 20:38 Cerebral Spinal Fluid - Lumbar Puncture Fungal Smear - Final No fungal elements seen 10/27/17 20:38 Cerebral Spinal Fluid - Lumbar Puncture Fungal Culture - Preliminary Lisa albicans 10/25/17 Unknown Cerebral Spinal Fluid - Shunt Fluid Fungal Smear - Final No fungal elements seen 10/25/17 Unknown Cerebral Spinal Fluid - Shunt Fluid Fungal Culture - Preliminary Lisa albicans - Procedures 09/24>s/p stereotactic image guided suboccipital craniectomy, C1 laminectomy, microsurgical resection of metastatic carcinoma, duraplasty - 08/23>Right frontal Walt hole with placement of a ventriculostomy catheter removed 09/22 Left 4.4 cm cerebellar brain mass with vasogenic edema s/p EVD 09/29 for base of skull CSF leak vs. seroma.s/p Walt hole with ventriculostomy placement 10/10 for CSF leak 10/30 Left frontal walt hole with placement of ventriculostomy catheter Assessment and Plan - Plan 52-year-old male who was admitted to [facility] on September 11, 2017 - h/o of atrial flutter status post ablation by Dr. Stokes - systolic heart failure with an ejection fraction of 25%, hypertension, hyperlipidemia, and bladder cancer with chemo radiation in 2016. He presented to the ED after he slipped and fell. - - Mass discovered after slip and fall , presumably related to bladder cancer (treated in 2016) - Crainiotomy performed during this hospitalization, for mass removal - CSF leak occured, yeast growing in CSF, currently under treatment Continue to monitor potassium levels. Potassium replacement provided IV. Recheck potassium at 1300 hrs. Hypokalemia Replace potassium levels monitor for recurrence Lisa albicans Ventriculitis Continue Amphoteracin B Continue Diflucan ID following Bladder Cancer Brain metastasis Neurosurgery following Status post crainiotomy Continue steroids Oncology treatments on hold till infection cleared Thrombocytopenia Follow platelet counts Anemia Follow CBC Transfuse as needed CHF A-fib HTN Continue Lopressor, Vasotec, hydralazine, cardiology following. Hypokalemia Follow and replace as needed Steroid induced Hyperglycemia Follow blood sugars Insulin sliding scale Levemir DVT Prophylaxis Lovenox Discharge Planning SNF is likely an option after ventriculostomy tube can be removed Avoid apixaban at discharge, per cardiology
[2017-11-01] MEDS: METHYLPREDNISOLONE SOD SUC IT SCH ×3 (12:07→12:08)
[2017-11-01] MEDS: WATER IT SCH ×3 (12:07→12:08)
[2017-11-01] MEDS: DEXTROSE 5% IT SCH ×3 (12:07→12:08)
[2017-11-01] MEDS: [UNRECOGNIZED DRUG - OTHER] IT SCH ×2 (12:07)
[2017-11-01] MEDS: [UNRECOGNIZED DRUG - OTHER] IT SCH (12:08)
[2017-11-01] MEDS: Metoprolol Tartrate 50 MG Tablet PO SCH ×2 (13:09→20:04)
[2017-11-01] MEDS: Senna/Docusate Sodium 8.6/50 MG Tablet PO SCH ×2 (13:11→22:18)
--- NOTE | 2017-11-01 13:12 | P.PNNS ---
Subjective Interval history: 11/01: no neuro changes overnight, ventriculostomy draining well. <Marivel Desir - Last Filed: 11/01/17 13:07> Physical Exam Vital signs: Vital Signs 10/31/17 14:00 10/31/17 16:00 10/31/17 18:00 Temperature 98.0 F Pulse Rate 57 L 64 77 Respiratory Rate 21 Blood Pressure 116/66 Pulse Oximetry 97 10/31/17 20:00 10/31/17 21:20 10/31/17 22:00 Temperature 97.8 F Pulse Rate 82 77 Respiratory Rate 20 Blood Pressure 123/70 Pulse Oximetry 98 98 11/01/17 00:00 11/01/17 04:00 11/01/17 08:53 Temperature 98.1 F 97.9 F Pulse Rate 90 71 Respiratory Rate 23 15 Blood Pressure 128/71 122/74 Pulse Oximetry 98 98 96 Intake & Output 10/31/17 11/01/17 11/01/17 18:59 06:59 18:59 Intake Total 1220 / 1220 Output Total 905 / 905 1010 / 1010 Balance 315 / 315 -1010 / -1010 Intake: IV 300 / 300 KCl 20 mEq Premix Inj 20 meq In 300 / 300 100 ml @ 50 mls/hr IV.SIG Q2H KATHERINE Rx#:[id number] Oral 480 / 480 Other 440 / 440 Output: Urine Amount (Catheter) 900 / 900 1000 / 1000 CATHETER 900 / 900 1000 / 1000 Wound Drainage 10 / 10 Right Occipital 10 / 10 Intracranial Drainage 5 / 5 Right Temporoparietal 5 / 5 Other: Date of Last Bowel Movement 10/30/17 10/30/17 # Bowel Movements 0 Narrative: Awake. Mood and affect decreased. Left ventriculostomy draining well at 0 cm H20, CSF blood tinged - Urinary Catheter Management Condom Cath placed during this visit: yes Reason for continuing: Hourly intake/output Insertion date: 10/30/17 Insertion time: 13:34 CATHETER Cath placed during this visit: yes Reason for continuing: Other continuation reason Insertion date: 10/30/17 <Marivel Desir - Last Filed: 11/01/17 13:07> Vital signs: Vital Signs 11/03/17 18:00 11/03/17 20:00 11/03/17 20:05 Temperature 98.8 F Pulse Rate 66 70 66 Respiratory Rate 27 H Blood Pressure 94/55 L Pulse Oximetry 95 11/03/17 20:21 11/03/17 22:10 11/04/17 00:00 Temperature 99.8 F H Pulse Rate 81 76 Respiratory Rate 25 H Blood Pressure 115/73 Pulse Oximetry 95 11/04/17 02:00 11/04/17 04:00 11/04/17 06:10 Temperature 99.2 F Pulse Rate 76 70 70 Respiratory Rate Blood Pressure Pulse Oximetry 93 L 11/04/17 08:00 11/04/17 09:52 11/04/17 10:00 Temperature 99.5 F 99.5 F Pulse Rate 79 84 80 Respiratory Rate 21 Blood Pressure 107/67 108/65 Pulse Oximetry 93 L 94 L 11/04/17 10:09 11/04/17 10:14 11/04/17 12:00 Temperature 99.2 F 99.5 F 99.1 F Pulse Rate 92 H 66 69 Respiratory Rate 24 24 Blood Pressure 114/72 111/71 107/66 Pulse Oximetry 92 L 11/04/17 12:29 11/04/17 12:49 11/04/17 14:00 Temperature 99.1 F 99.1 F Pulse Rate 69 78 73 Respiratory Rate 25 H 25 H Blood Pressure 115/68 110/68 Pulse Oximetry 94 L 11/04/17 16:00 Temperature Pulse Rate 65 Respiratory Rate Blood Pressure Pulse Oximetry Intake & Output 11/03/17 11/04/17 11/04/17 18:59 06:59 18:59 Intake Total 1079 / 1079 4174.850 / 4174.850 100 / 100 Output Total 684 / 684 1525 / 1525 Balance 395 / 395 2649.850 / 2649.850 100 / 100 Weight 90.6 kg Intake: IV 100 / 100 1584.850 / 1584.850 100 / 100 SoluMEDROL Inj 5 MG D5W Inj 3.8 3.925 / 3.925 ML Amphotericin B Conv. Inj 0. 1 MG In Bag/Syringe 1 EACH @ As Directed IT MoWeFr KATHERINE Rx#: [id number] SoluMEDROL Inj 5 MG D5W Inj 0.8 0.925 / 0.925 ML In Bag/Syringe 1 EACH @ As Directed IT MoWeFr KATHERINE Rx#: [id number] Ambisome Inj 481.5 MG In D5W 730 / 730 Inj 320 ML @ 125 mls/hr IV.SIG Q24H KATHERINE Rx#:[id number] Diflucan 400 mg Premix Bag 400 400 / 400 ML @ 100 mls/hr IV.SIG Q24H KATHERINE Rx#:[id number] KCl 20 mEq Premix Inj 20 meq In 100 / 100 200 / 200 100 / 100 100 ml @ 50 mls/hr IV.SIG Q2H PRN Rx#:[id number] NS Inj 250 ML @ 15 mls/hr IV. 250 / 250 SIG ONCE KATHERINE Rx#:[id number] Oral 750 / 750 750 / 750 Anesthesia Amount 1400 / 1400 Other 440 / 440 Intake (Blood Product) Amt 229 / 229 0 / 0 Prepooled Plts Leukoreduced 5d 229 / 229 Unit [id number] Prepooled Plts Leukoreduced 5d 0 / 0 Unit [id number] Rbc As-3 Leukoreduced Unit 0 / 0 [id number] Output: Urine 820 / 820 Stool 0 / 0 Urine Amount (Catheter) 600 / 600 650 / 650 Condom 600 / 600 650 / 650 Wound Drainage 84 / 84 Right Occipital 84 / 84 Intracranial Drainage 55 / 55 Left Temporoparietal 55 / 55 Other: # Voids 1 Date of Last Bowel Movement 10/30/17 10/30/17 10/30/17 # Bowel Movements 0 0 - Urinary Catheter Management Condom Cath placed during this visit: no CATHETER Cath placed during this visit: no <Yomi Horvath - Last Filed: 11/04/17 17:38> Assessment and Plan - Assessment (1) Cerebral ventriculitis Code(s): G04.90 - Encephalitis and encephalomyelitis, unspecified Status: Acute (2) Metastatic urothelial carcinoma Code(s): C79.10 - Secondary malignant neoplasm of unspecified urinary organs Status: Acute - Plan intrathecal ampho b/methylprednisolone given cont ventriculostomy draining follow up repeat CSF cultures <Marivel Desir - Last Filed: 11/01/17 13:07> - Assessment (1) Cerebral ventriculitis Code(s): G04.90 - Encephalitis and encephalomyelitis, unspecified Status: Acute (2) Metastatic urothelial carcinoma Code(s): C79.10 - Secondary malignant neoplasm of unspecified urinary organs Status: Acute - Plan The exam, history, and the medical decision-making described in the above note were completed with the assistance of the mid-level provider. I reviewed and agree with the findings presented. I attest that I had a [id number] encounter with the patient on the same day, and personally performed and documented my assessment and findings in the medical record. <Yomi Horvath - Last Filed: 11/04/17 17:38>
--- NOTE | 2017-11-01 13:30 | P.PNPAL ---
Palliative care received a voicemail from patient's indicating she does not wish for palliative care to be involved in Mr. Clinton's care. Spoke with nurse who confirms has voiced to nursing staff she does not want anyone from palliative care team to step foot in Mr. Clinton's room. Palliative care will continue to be available throughout Mr. Clinton's hospitalization as needed.
[2017-11-01] MEDS ORDERED: Potassium Chloride 25 MEQ Effervescent Tablet PO ONE (15:21)
[2017-11-01] MEDS: Potassium Chloride 25 MEQ Effervescent Tablet PO SCH (20:06)
[2017-11-01] MEDS: Insulin Detemir Inj 1,000 UNIT/10 ML Vial SQ SCH (21:31)
[2017-11-01] MEDS: Mirtazapine 15 MG Tablet PO SCH (22:17)
[2017-11-02] MEDS: Insulin NovoLIN Regular Correctional Sugar Inj SQ SCH ×6 (00:22→23:50)
--- NOTE | 2017-11-02 00:30 | P.PNONC ---
Subjective Interval history: no bleeding. feels better Objective Vital Signs/Intake & Output: Vital Signs 11/01/17 04:00 11/01/17 08:00 11/01/17 08:53 Temperature 97.9 F Pulse Rate 71 84 Respiratory Rate 15 Blood Pressure 122/74 Pulse Oximetry 98 96 11/01/17 10:00 11/01/17 12:00 11/01/17 14:00 Temperature 98.0 F Pulse Rate 98 H 94 H 93 H Respiratory Rate 19 Blood Pressure 94/58 L Pulse Oximetry 97 11/01/17 16:00 11/01/17 18:00 11/01/17 20:00 Temperature 98.4 F Pulse Rate 78 76 84 Respiratory Rate 14 Blood Pressure 96/61 L Pulse Oximetry 98 11/01/17 21:20 Temperature Pulse Rate Respiratory Rate Blood Pressure Pulse Oximetry 97 Intake & Output 11/01/17 11/01/17 11/02/17 06:59 18:59 06:59 Intake Total 400 / 400 860 / 860 Output Total 1010 / 1010 940 / 940 Balance -610 / -610 -80 / -80 Intake: IV 400 / 400 620 / 620 Ambisome Inj 481.5 MG In D5W 320 / 320 Inj 320 ML @ 125 mls/hr IV.SIG Q24H KATHERINE Rx#:[id number] Diflucan 400 mg Premix Bag 400 400 / 400 ML @ 100 mls/hr IV.SIG Q24H KATHERINE Rx#:[id number] KCl 20 mEq Premix Inj 20 meq In 300 / 300 100 ml @ 50 mls/hr IV.SIG Q2H KATHERINE Rx#:[id number] Oral 240 / 240 Output: Stool 0 / 0 Urine Amount (Catheter) 1000 / 1000 900 / 900 CATHETER 1000 / 1000 Condom 900 / 900 Wound Drainage 10 / 10 Right Occipital 10 / 10 Intracranial Drainage 40 / 40 Right Temporoparietal 40 / 40 Other: Date of Last Bowel Movement 10/30/17 10/30/17 10/30/17 # Bowel Movements 0 Result Diagrams: 11/01/17 06:56 11/01/17 13:37 Laboratory Results: Laboratory Results - last 24 hr 11/01/17 11/01/17 11/01/17 06:56 06:56 06:56 WBC 3.8 L RBC 2.78 L Hgb 8.4 L Hct 25.1 L MCV 90.2 MCH 30.2 MCHC 33.5 RDW 20.2 H Plt Count 57 L MPV 8.5 Prelim Diff (Auto) Slide review pending Neut % (Auto) 86.2 H Lymph % (Auto) 11.6 [place] % (Auto) 1.8 Eos % (Auto) 0.0 Baso % (Auto) 0.4 Neut # (Auto) 3.2 Lymph # (Auto) 0.4 L [place] # (Auto) 0.1 Eos # (Auto) 0.0 Baso # (Auto) 0.0 WBC Differential . Diff Scan Auto diff confirmed Differential Comment . Platelet Estimate Low L Platelet Morphology Normal Polychromasia 2.1 H Tear Drop Cells 1+ H Ovalocytes 1+ H PT 12.4 H INR 1.2 Fibrinogen 136 L Sodium 152 H Potassium 1.9 L* Chloride 114 H Carbon Dioxide 25.5 Anion Gap 13 BUN 32 H Creatinine 0.63 Estimated GFR Greater than 89 POC Glucose Random Glucose 169 H Calcium 7.8 L Magnesium 1.3 L Total Bilirubin 0.9 AST 45 H ALT 167 H Alkaline Phosphatase 112 Total Protein 5.0 L Albumin 2.6 L 11/01/17 11/01/17 11/01/17 13:20 13:37 16:05 WBC RBC Hgb Hct MCV MCH MCHC RDW Plt Count MPV Prelim Diff (Auto) Neut % (Auto) Lymph % (Auto) [place] % (Auto) Eos % (Auto) Baso % (Auto) Neut # (Auto) Lymph # (Auto) [place] # (Auto) Eos # (Auto) Baso # (Auto) WBC Differential Diff Scan Differential Comment Platelet Estimate Platelet Morphology Polychromasia Tear Drop Cells Ovalocytes PT INR Fibrinogen Sodium Potassium 2.0 L* Chloride Carbon Dioxide Anion Gap BUN Creatinine Estimated GFR POC Glucose 201 H 202 H Random Glucose Calcium Magnesium Total Bilirubin AST ALT Alkaline Phosphatase Total Protein Albumin 11/01/17 22:55 WBC RBC Hgb Hct MCV MCH MCHC RDW Plt Count MPV Prelim Diff (Auto) Neut % (Auto) Lymph % (Auto) [place] % (Auto) Eos % (Auto) Baso % (Auto) Neut # (Auto) Lymph # (Auto) [place] # (Auto) Eos # (Auto) Baso # (Auto) WBC Differential Diff Scan Differential Comment Platelet Estimate Platelet Morphology Polychromasia Tear Drop Cells Ovalocytes PT INR Fibrinogen Sodium Potassium Chloride Carbon Dioxide Anion Gap BUN Creatinine Estimated GFR POC Glucose 196 H Random Glucose Calcium Magnesium Total Bilirubin AST ALT Alkaline Phosphatase Total Protein Albumin Culture Results: Microbiology 10/30/17 Unknown Fungal Smear - Final Cerebral Spinal Fluid - Shunt Fluid No fungal elements seen 10/30/17 Unknown Gram Stain - Final Shunt Fluid CSF Culture - Preliminary No growth in 48 hours 10/27/17 20:38 Fungal Smear - Final Cerebral Spinal Fluid - Lumbar Puncture No fungal elements seen Fungal Culture - Preliminary Lisa albicans 10/25/17 Unknown Fungal Smear - Final Cerebral Spinal Fluid - Shunt Fluid No fungal elements seen Fungal Culture - Preliminary Lisa albicans 10/27/17 19:00 Gram Stain - Final Lumbar Puncture CSF Culture - Final Lisa albicans Medications: Active Medications Generic Name Dose Route Start Last Admin Trade Name Freq PRN Reason Stop Dose Admin Acetaminophen 650 mg 10/22/17 00:00 10/31/17 11:59 Tylenol PO 650 mg Q4H PRN Administration TEMP >101.5 Hydrocodone Bitart/Acetaminophen 1 tab 10/22/17 00:01 11/01/17 10:47 [place] 10/325 PO 1 tab Q4H PRN Administration PAIN SCALE 1-5 Hydrocodone Bitart/Acetaminophen 2 tab 10/22/17 00:00 10/28/17 21:43 [place] 10/325 PO 2 tab Q4H PRN Administration PAIN 6-10 Al Hydroxide/Mg Hydroxide 30 ml 10/22/17 06:00 11/01/17 05:31 Milk Of Magnesia Liq PO 30 ml Q12H KATHERINE Administration Artificial Tears 1 drop 10/22/17 06:00 11/01/17 13:10 Tears Naturale Opth Drops EACH EYE Not Given Q8HR KATHERINE Citalopram Hydrobromide 10 mg 10/30/17 09:15 11/01/17 09:18 Celexa PO 10 mg DAILY KATHERINE Administration Dexamethasone Sodium Phosphate 3 mg 10/22/17 00:00 11/01/17 13:07 Decadron Inj IV.PUSH 3 mg Q6HR KATHERINE Administration Diphenhydramine HCl 25 mg 10/22/17 22:30 11/01/17 22:14 Benadryl Inj IV.PUSH 25 mg Q24H KATHERINE Administration Enalapril Maleate 5 mg 10/22/17 00:00 11/01/17 13:09 Vasotec PO Not Given Q12H KATHERINE Fluconazole 400 mls @ 100 mls/hr 10/23/17 17:00 11/01/17 16:37 Diflucan 400 Mg Premix Bag IV.SIG 100 mls/hr Q24H KATHERINE Administration Amphotericin B 481.5 mg/ 320 mls @ 125 mls/hr 10/22/17 23:00 11/01/17 22:15 Dextrose IV.SIG 125 mls/hr Q24H KATHERINE Administration Methylprednisolone Sodium 0.925 mls @ 0 mls/hr 10/23/17 07:00 11/01/17 12:07 Succinate 5 mg/ Dextrose 0.8 IT 1 mls/hr ml/ Syringe/Bag MoWeFr KATHERINE Administration As Directed Methylprednisolone Sodium 3.925 mls @ 0 mls/hr 10/23/17 07:00 11/01/17 12:08 Succinate 5 mg/ Dextrose 3.8 IT 1 mls/hr ml/ Amphotericin B 0.1 mg/ MoWeFr KATHERINE Administration Syringe/Bag As Directed Insulin Detemir 6 unit 10/27/17 21:00 11/01/17 21:31 Levemir Inj SQ 6 unit HS KATHERINE Administration Insulin Human Regular 0 units 10/22/17 14:00 11/01/17 13:26 Novolin R Supplemental Scale SQ 4 units Q6HR KATHERINE Administration Protocol Lactulose 30 ml 10/22/17 09:00 11/01/17 13:12 Lactulose Liq PO Not Given TID KATHERINE Levetiracetam 500 mg 10/22/17 09:00 11/01/17 20:05 Keppra PO 500 mg Q12HR KATHERINE Administration Magnesium Oxide 800 mg 10/22/17 00:01 11/01/17 09:18 Mag-Ox PO 800 mg UNSCH PRN Administration For Magnesium 1.2 - 1.6 mg/dL Metoprolol Tartrate 50 mg 10/22/17 09:00 11/01/17 20:04 Lopressor PO 50 mg Q12H KATHERINE Administration Mirtazapine 15 mg 10/22/17 21:00 11/01/17 22:17 Remeron PO 15 mg HS KATHERINE Administration Pantoprazole Sodium 40 mg 10/22/17 09:00 11/01/17 09:19 Protonix Inj IV.PUSH 40 mg DAILY KATHERINE Administration Pantoprazole Sodium 40 mg 10/22/17 09:00 11/01/17 13:10 Protonix PO Not Given DAILY KATHERINE Potassium Bicarb/Potassium Chloride 50 meq 10/27/17 14:40 10/31/17 08:16 K-Lyte Cl Eff PO 50 meq UNSCH PRN Administration For Potassium 3.3 - 3.5 mEq/L Potassium Bicarb/Potassium Chloride 25 meq 11/01/17 21:00 11/01/17 20:06 K-Lyte Cl Eff PO 25 meq BID KATHERINE Administration Potassium Phosphate 2,000 mg 10/22/17 00:01 10/26/17 08:30 K-Phos Original PO 2,000 mg UNSCH PRN Administration SEE LABEL COMMENTS Senna/Docusate Sodium 2 tab 10/22/17 09:00 11/01/17 22:18 Dari-Colace PO 2 tab BID KATHERINE Administration Sodium Chloride 2 ml 10/22/17 09:00 11/01/17 13:10 Ns Flush IV.FLUSH 2 ml BID KATHERINE Administration Sodium Chloride 1 gm 10/22/17 09:00 11/01/17 13:07 Sodium Chloride PO 1 gm TID KATHERINE Administration Objective Remarks: GENERAL: Well-nourished, well-developed patient. SKIN: Warm and dry. HEAD: Normocephalic. EYES: No scleral icterus. No injection or drainage. NECK: Supple, trachea midline. No JVD or lymphadenopathy. LYMPHATIC: No adenopathy. CARDIOVASCULAR: Regular rate and rhythm without murmurs. RESPIRATORY: Breath sounds equal bilaterally. No accessory muscle use. GASTROINTESTINAL: Abdomen soft, non-tender, nondistended. EXTREMITIES: No cyanosis, or edema. MUSCULOSKELETAL: Adequate muscle tone. NEUROLOGICAL: No obvious focal deficit. Awake, alert, and oriented x3. PSYCHIATRIC: Appropriate mood and affect; insight and judgment normal. Assessment/Plan (1) Metastatic urothelial carcinoma Code(s): C79.10 - Secondary malignant neoplasm of unspecified urinary organs Status: Acute (2) Cerebral ventriculitis Code(s): G04.90 - Encephalitis and encephalomyelitis, unspecified Status: Acute - Plan 52y/o male with metastatic urothelial carcinoma. He has had a brain mass with pathology showing metastatic non-small cell carcinoma. He is positive for Lisa infection in cerebrospinal fluid. Infectious disease is following. Hematology re-consulted for thrombocytopenia. 1. continue to monitor cbc and plat. Has pancytopenia due to infection and medications. 2. Recommend platelet transfusion to keep platelets greater than 50,000
[2017-11-02] MEDS: Pantoprazole Inj 40 MG Vial IV.PUSH SCH (10:08)
[2017-11-02] MEDS: Senna/Docusate Sodium 8.6/50 MG Tablet PO SCH ×2 (10:09→21:44)
[2017-11-02] MEDS: Sodium Chloride 1 GM Tablet PO SCH ×3 (10:09→12:17)
[2017-11-02] MEDS: Citalopram 20 MG Tablet PO SCH (10:10)
[2017-11-02] MEDS: Metoprolol Tartrate 50 MG Tablet PO SCH ×2 (10:11→21:45)
[2017-11-02] MEDS: levETIRAcetam 500 MG Tablet PO SCH ×2 (10:11→21:43)
[2017-11-02] MEDS: Potassium Chloride 25 MEQ Effervescent Tablet PO SCH ×2 (10:12→21:43)
[2017-11-02] MEDS: Artificial Tears Opth Drops 15 ML Bottle EACH EYE SCH ×4 (10:37→21:44)
--- NOTE | 2017-11-02 11:05 | P.PNIM ---
Subjective Interval history: Today's labs are not yet available. As of yesterday the patient still had low potassium. IV supplementation provided an additional p.o. treatment has been started for better absorption. Physical Exam Vital signs: Vital Signs 11/01/17 12:00 11/01/17 14:00 11/01/17 16:00 Temperature 98.0 F 98.4 F Pulse Rate 94 H 93 H 78 Respiratory Rate 19 14 Blood Pressure 94/58 L 96/61 L Pulse Oximetry 97 98 11/01/17 18:00 11/01/17 20:00 11/01/17 21:20 Temperature 98.7 F Pulse Rate 76 84 Respiratory Rate 13 Blood Pressure 101/65 Pulse Oximetry 97 97 11/01/17 22:00 11/02/17 00:00 11/02/17 02:00 Temperature 98.0 F Pulse Rate 82 79 85 Respiratory Rate 18 Blood Pressure 117/71 Pulse Oximetry 98 11/02/17 04:00 11/02/17 08:24 Temperature 97.9 F Pulse Rate 88 Respiratory Rate 15 Blood Pressure 125/78 Pulse Oximetry 99 99 Intake & Output 11/01/17 11/02/17 11/02/17 18:59 06:59 18:59 Intake Total 860 / 860 Output Total 940 / 940 820 / 820 Balance -80 / -80 -820 / -820 Intake: IV 620 / 620 Ambisome Inj 481.5 MG In D5W 320 / 320 Inj 320 ML @ 125 mls/hr IV.SIG Q24H KATHERINE Rx#:[id number] KCl 20 mEq Premix Inj 20 meq In 300 / 300 100 ml @ 50 mls/hr IV.SIG Q2H KATHERINE Rx#:[id number] Oral 240 / 240 Output: Stool 0 / 0 Urine Amount (Catheter) 900 / 900 800 / 800 CATHETER 800 / 800 Condom 900 / 900 Intracranial Drainage 40 / 40 20 / 20 Right Temporoparietal 40 / 40 20 / 20 Other: Date of Last Bowel Movement 10/30/17 10/30/17 # Bowel Movements 0 Narrative: GENERAL: NAD, A&Ox3 HEAD: Normocephalic. Ventriculostomy tube is in place. Head is bandaged. NECK: Supple, trachea midline. No lymphadenopathy. EYES: No scleral icterus. No injection or drainage. CARDIOVASCULAR: Regular rate and rhythm without murmurs, gallops, or rubs. RESPIRATORY: Breath sounds equal bilaterally. No accessory muscle use. GASTROINTESTINAL: Abdomen soft, non-tender, nondistended. MUSCULOSKELETAL: No cyanosis, or edema. SKIN: Warm and dry. NEURO: No focal neurological deficits. - Urinary Catheter Management Condom Cath placed during this visit: yes Reason for continuing: Hourly intake/output Insertion date: 10/30/17 Insertion time: 13:34 CATHETER Cath placed during this visit: yes Reason for continuing: Other continuation reason Insertion date: 10/30/17 Results - Labs CBC & Chem 7: 11/01/17 06:56 11/01/17 13:37 Laboratory Results - last 24 hr 10/30/17 11/01/17 11/01/17 13:49 13:20 13:37 Potassium 2.0 L* POC Glucose 201 H MTS Gel Crossmatch See Detail 11/01/17 11/01/17 11/02/17 16:05 22:55 05:54 Potassium POC Glucose 202 H 196 H 170 H MTS Gel Crossmatch Microbiology 10/30/17 Unknown Shunt Fluid Gram Stain - Final 10/30/17 Unknown Shunt Fluid CSF Culture - Final No growth in 72 hours 10/30/17 Unknown Cerebral Spinal Fluid - Shunt Fluid Fungal Smear - Final No fungal elements seen - Procedures 09/24>s/p stereotactic image guided suboccipital craniectomy, C1 laminectomy, microsurgical resection of metastatic carcinoma, duraplasty - 08/23>Right frontal [place] hole with placement of a ventriculostomy catheter removed 09/22 Left 4.4 cm cerebellar brain mass with vasogenic edema s/p EVD 09/29 for base of skull CSF leak vs. seroma.s/p [place] hole with ventriculostomy placement 10/10 for CSF leak 10/30 Left frontal [place] hole with placement of ventriculostomy catheter Assessment and Plan - Plan 52-year-old male who was admitted to [facility] on September 11, 2017 - h/o of atrial flutter status post ablation by Dr. Stokes - systolic heart failure with an ejection fraction of 25%, hypertension, hyperlipidemia, and bladder cancer with chemo radiation in 2015. He presented to the ED after he slipped and fell. - - Mass discovered after slip and fall , presumably related to bladder cancer (treated in 2015) - Crainiotomy performed during this hospitalization, for mass removal - CSF leak occured, yeast growing in CSF, currently under treatment Potassium levels are not yet controlled. P.o. supplementations added. Blood work today is not yet available, follow-up lab results today. Continue to monitor potassium levels. Potassium replacement provided IV. Recheck potassium at 1300 hrs. Hypokalemia Replace potassium levels monitor for recurrence Lisa albicans Ventriculitis Continue Amphoteracin B Continue Diflucan ID following Bladder Cancer Brain metastasis Neurosurgery following Status post crainiotomy Continue steroids Oncology treatments on hold till infection cleared Thrombocytopenia Follow platelet counts Anemia Follow CBC Transfuse as needed CHF A-fib HTN Continue Lopressor, Vasotec, hydralazine, cardiology following. Hypokalemia Follow and replace as needed Steroid induced Hyperglycemia Follow blood sugars Insulin sliding scale Levemir DVT Prophylaxis Lovenox Discharge Planning SNF is likely an option after ventriculostomy tube can be removed Avoid apixaban at discharge, per cardiology
[2017-11-02 15:40] LABS: Baso % (Auto) 0.6 % (0.0-2.0); Eos % (Auto) 0.1 % (0.0-4.0); Hematocrit 26.3 % (39.0-51.0); Hemoglobin 8.7 gm/dL (13.0-17.0); Lymph # (Auto) 0.3 th/mm3 (1.0-4.8); Lymph % (Auto) 8.8 % (9.0-44.0); Mean Corpuscular HGB Conc 33.1 % (32.0-36.0); Mean Corpuscular Hemoglobin 30.1 pg (27.0-34.0); Mean Platelet Volume 9.3 fL (7.0-11.0); Mono # (Auto) 0.1 th/mm3 (0.0-0.9); Mono % (Auto) 1.7 % (0.0-8.0); Neut # (Auto) 3.4 th/mm3 (1.8-7.7); Neut % (Auto) 88.8 % (16.0-70.0); Platelet Count 44 th/mm3 (150-450); White Blood Count 3.8 th/mm3 (4.0-11.0)
[2017-11-02 16:07] LABS: Alanine Aminotransferase 114 U/L (12-78); Albumin 2.4 g/dL (3.4-5.0); Alkaline Phosphatase 109 U/L (45-117); Anion Gap 16 meq/L (5-15); Aspartate Aminotransferase 29 U/L (15-37); Blood Urea Nitrogen 40 mg/dL (7-18); Calcium 7.8 mg/dL (8.5-10.1); Carbon Dioxide 22.7 meq/L (21.0-32.0); Chloride 117 meq/L (98-107); Glomerular Filtration Rate 85 mL/min (>89); Glucose,Random 222 mg/dL (74-106); Total Protein 4.9 g/dL (6.4-8.2)
[2017-11-02 16:10] LABS: Sodium 156 meq/L (136-145)
[2017-11-02 17:11] LABS: Platelet Morphology Normal (Normal); Tear Drop Cells 1+
[2017-11-02 17:12] LABS: Ovalocytes 1+
[2017-11-02] MEDS: Potassium Chlor 20 mEq Premix 20 MEQ/100 ML PIGGYBACK IV.SIG SCH ×2 (17:40→20:31)
[2017-11-02] MEDS: Insulin Detemir Inj 1,000 UNIT/10 ML Vial SQ SCH (21:43)
[2017-11-02] MEDS: Mirtazapine 15 MG Tablet PO SCH (21:44)
[2017-11-02] MEDS: DEXTROSE 5% IV.SIG SCH ×2 (23:22)
[2017-11-02] MEDS: WATER IV.SIG SCH ×2 (23:22)
[2017-11-02] MEDS: AMPHOTERICIN B LIPOSOMAL IV.SIG SCH ×2 (23:22)
[2017-11-03] MEDS: Insulin NovoLIN Regular Correctional Sugar Inj SQ SCH ×3 (06:43→19:50)
[2017-11-03] MEDS: Artificial Tears Opth Drops 15 ML Bottle EACH EYE SCH ×3 (06:44→22:02)
[2017-11-03 07:11] LABS: Baso % (Auto) 0.4 % (0.0-2.0); Eos % (Auto) 0.1 % (0.0-4.0); Hematocrit 24.5 % (39.0-51.0); Hemoglobin 8.2 gm/dL (13.0-17.0); Lymph # (Auto) 0.3 th/mm3 (1.0-4.8); Mean Corpuscular HGB Conc 33.3 % (32.0-36.0); Mean Corpuscular Hemoglobin 29.8 pg (27.0-34.0); Mean Corpuscular Volume 89.5 fL (80.0-100.0); Mean Platelet Volume 9.5 fL (7.0-11.0); Mono % (Auto) 2.2 % (0.0-8.0); Neut # (Auto) 1.8 th/mm3 (1.8-7.7); Neut % (Auto) 84.3 % (16.0-70.0); Platelet Count 32 th/mm3 (150-450); Red Blood Count 2.74 mil/mm3 (4.50-5.90); Red Cell Distribution Width 20.1 % (11.6-17.2); White Blood Count 2.2 th/mm3 (4.0-11.0)
[2017-11-03 07:29] LABS: Alanine Aminotransferase 96 U/L (12-78); Albumin 2.2 g/dL (3.4-5.0); Alkaline Phosphatase 108 U/L (45-117); Anion Gap 13 meq/L (5-15); Aspartate Aminotransferase 28 U/L (15-37); Blood Urea Nitrogen 38 mg/dL (7-18); Calcium 8.1 mg/dL (8.5-10.1); Carbon Dioxide 23.8 meq/L (21.0-32.0); Chloride 114 meq/L (98-107); Glomerular Filtration Rate Greater Than 89 mL/min (>89); Glucose,Random 168 mg/dL (74-106); Magnesium 1.6 mg/dL (1.5-2.5); Sodium 151 meq/L (136-145)
[2017-11-03 07:33] LABS: Potassium 2.1 meq/L (3.5-5.1)
[2017-11-03] MEDS: Senna/Docusate Sodium 8.6/50 MG Tablet PO SCH ×2 (09:23→20:41)
[2017-11-03] MEDS: Citalopram 20 MG Tablet PO SCH (09:24)
[2017-11-03] MEDS: Potassium Chlor 20 mEq Premix 20 MEQ/100 ML PIGGYBACK IV.SIG SCH ×2 (09:24→12:26)
[2017-11-03] MEDS: levETIRAcetam 500 MG Tablet PO SCH ×2 (09:24→20:42)
[2017-11-03] MEDS: Metoprolol Tartrate 50 MG Tablet PO SCH ×2 (09:25→21:21)
[2017-11-03] MEDS: Potassium Chloride 25 MEQ Effervescent Tablet PO SCH ×2 (09:26→20:41)
[2017-11-03] MEDS: Pantoprazole Inj 40 MG Vial IV.PUSH SCH (09:27)
[2017-11-03 09:42] LABS: Ovalocytes 1+; Platelet Morphology Normal (Normal); Tear Drop Cells 1+
--- NOTE | 2017-11-03 10:35 | P.PNIM ---
Subjective Interval history: Hypokalemia remains a problem. Potassium levels 2.1 today. Supplements are being provided. Physical Exam Vital signs: Vital Signs 11/02/17 12:00 11/02/17 14:00 11/02/17 16:00 Temperature 98.1 F 98.7 F Pulse Rate 75 72 68 Respiratory Rate 21 21 Blood Pressure 100/66 95/56 L Pulse Oximetry 98 11/02/17 18:00 11/02/17 19:30 11/02/17 20:00 Temperature 98.5 F Pulse Rate 72 80 Respiratory Rate 26 H Blood Pressure 101/66 Pulse Oximetry 96 95 11/02/17 22:00 11/03/17 00:00 11/03/17 02:00 Temperature 98.8 F Pulse Rate 80 78 82 Respiratory Rate 21 Blood Pressure 109/67 Pulse Oximetry 96 11/03/17 04:00 11/03/17 06:00 11/03/17 08:43 Temperature 98.6 F Pulse Rate 80 78 Respiratory Rate 26 H Blood Pressure 117/75 Pulse Oximetry 94 L 94 L Intake & Output 11/02/17 11/03/17 11/03/17 18:59 06:59 18:59 Intake Total 800 / 800 1524.850 / 1524.850 Output Total 873 / 873 1320 / 1320 Balance -73 / -73 204.850 / 204.850 Weight 90.3 kg Intake: IV 924.850 / 924.850 SoluMEDROL Inj 5 MG D5W Inj 3.8 3.925 / 3.925 ML Amphotericin B Conv. Inj 0. 1 MG In Bag/Syringe 1 EACH @ As Directed IT MoWeFr KATHERINE Rx#: [id number] SoluMEDROL Inj 5 MG D5W Inj 0.8 0.925 / 0.925 ML In Bag/Syringe 1 EACH @ As Directed IT MoWeFr KATHERINE Rx#: [id number] Ambisome Inj 481.5 MG In D5W 320 / 320 Inj 320 ML @ 125 mls/hr IV.SIG Q24H KATHERINE Rx#:[id number] Diflucan 400 mg Premix Bag 400 400 / 400 ML @ 100 mls/hr IV.SIG Q24H KATHERINE Rx#:[id number] KCl 20 mEq Premix Inj 20 meq In 200 / 200 100 ml @ 50 mls/hr IV.SIG Q2H KATHERINE Rx#:[id number] Oral 800 / 800 600 / 600 Output: Urine 820 / 820 Urine Amount (Catheter) 1250 / 1250 Condom 1250 / 1250 Intracranial Drainage 53 53 70 / 70 Left Temporoparietal 70 / 70 Right Temporoparietal 53 / 53 Other: Date of Last Bowel Movement 10/30/17 10/30/17 Narrative: GENERAL: NAD, A&Ox3 HEAD: Normocephalic. Ventriculostomy tube is in place. Head is bandaged. NECK: Supple, trachea midline. No lymphadenopathy. EYES: No scleral icterus. No injection or drainage. CARDIOVASCULAR: Regular rate and rhythm without murmurs, gallops, or rubs. RESPIRATORY: Breath sounds equal bilaterally. No accessory muscle use. GASTROINTESTINAL: Abdomen soft, non-tender, nondistended. MUSCULOSKELETAL: No cyanosis, or edema. SKIN: Warm and dry. NEURO: No focal neurological deficits. - Urinary Catheter Management Condom Cath placed during this visit: yes Reason for continuing: Hourly intake/output Insertion date: 10/30/17 Insertion time: 13:34 CATHETER Cath placed during this visit: yes Reason for continuing: Other continuation reason Insertion date: 10/30/17 Results - Labs CBC & Chem 7: 11/03/17 06:20 11/03/17 06:20 Laboratory Results - last 24 hr 11/02/17 11/02/17 11/02/17 14:04 14:04 14:04 WBC 3.8 L RBC 2.90 L Hgb 8.7 L Hct 26.3 L MCV 91.0 MCH 30.1 MCHC 33.1 RDW 21.0 H Plt Count 44 L MPV 9.3 Prelim Diff (Auto) Slide review pending Neut % (Auto) 88.8 H Lymph % (Auto) 8.8 L [place] % (Auto) 1.7 Eos % (Auto) 0.1 Baso % (Auto) 0.6 Neut # (Auto) 3.4 Lymph # (Auto) 0.3 L [place] # (Auto) 0.1 Eos # (Auto) 0.0 Baso # (Auto) 0.0 WBC Differential . Diff Scan Auto diff confirmed Differential Comment . Platelet Estimate Low L Platelet Morphology Normal Tear Drop Cells 1+ H Ovalocytes 1+ H Fibrinogen 201 L Sodium 156 H* Potassium 2.0 L* Chloride 117 H Carbon Dioxide 22.7 Anion Gap 16 H BUN 40 H Creatinine 0.93 Estimated GFR 85 L POC Glucose Random Glucose 222 H Calcium 7.8 L Magnesium Total Bilirubin 0.9 AST 29 ALT 114 H Alkaline Phosphatase 109 Total Protein 4.9 L Albumin 2.4 L 11/02/17 11/02/17 11/03/17 20:29 23:43 06:20 WBC 2.2 L RBC 2.74 L Hgb 8.2 L Hct 24.5 L MCV 89.5 MCH 29.8 MCHC 33.3 RDW 20.1 H Plt Count 32 L MPV 9.5 Prelim Diff (Auto) Slide review pending Neut % (Auto) 84.3 H Lymph % (Auto) 13.0 [place] % (Auto) 2.2 Eos % (Auto) 0.1 Baso % (Auto) 0.4 Neut # (Auto) 1.8 Lymph # (Auto) 0.3 L [place] # (Auto) 0.0 Eos # (Auto) 0.0 Baso # (Auto) 0.0 WBC Differential . Diff Scan Auto diff confirmed Differential Comment . Platelet Estimate Low L Platelet Morphology Normal Tear Drop Cells 1+ H Ovalocytes 1+ H Fibrinogen Sodium Potassium Chloride Carbon Dioxide Anion Gap BUN Creatinine Estimated GFR POC Glucose 207 H 233 H Random Glucose Calcium Magnesium Total Bilirubin AST ALT Alkaline Phosphatase Total Protein Albumin 11/03/17 11/03/17 06:20 06:26 WBC RBC Hgb Hct MCV MCH MCHC RDW Plt Count MPV Prelim Diff (Auto) Neut % (Auto) Lymph % (Auto) [place] % (Auto) Eos % (Auto) Baso % (Auto) Neut # (Auto) Lymph # (Auto) [place] # (Auto) Eos # (Auto) Baso # (Auto) WBC Differential Diff Scan Differential Comment Platelet Estimate Platelet Morphology Tear Drop Cells Ovalocytes Fibrinogen Sodium 151 H Potassium 2.1 L* Chloride 114 H Carbon Dioxide 23.8 Anion Gap 13 BUN 38 H Creatinine 0.76 Estimated GFR Greater than 89 POC Glucose 197 H Random Glucose 168 H Calcium 8.1 L Magnesium 1.6 Total Bilirubin 1.0 AST 28 ALT 96 H Alkaline Phosphatase 108 Total Protein 5.0 L Albumin 2.2 L Microbiology 10/30/17 Unknown Shunt Fluid Gram Stain - Final 10/30/17 Unknown Shunt Fluid CSF Culture - Final No growth in 72 hours - Procedures 09/24>s/p stereotactic image guided suboccipital craniectomy, C1 laminectomy, microsurgical resection of metastatic carcinoma, duraplasty - 08/23>Right frontal [place] hole with placement of a ventriculostomy catheter removed 09/22 Left 4.4 cm cerebellar brain mass with vasogenic edema s/p EVD 09/29 for base of skull CSF leak vs. seroma.s/p [place] hole with ventriculostomy placement 10/10 for CSF leak 10/30 Left frontal catracho hole with placement of ventriculostomy catheter Assessment and Plan - Assessment (1) Hypokalemia Code(s): E87.6 - Hypokalemia Status: Acute (2) Cerebral ventriculitis Code(s): G04.90 - Encephalitis and encephalomyelitis, unspecified Status: Acute (3) Metastatic urothelial carcinoma Code(s): C79.10 - Secondary malignant neoplasm of unspecified urinary organs Status: Acute (4) History of bladder cancer Code(s): Z85.51 - Personal history of malignant neoplasm of bladder Status: Acute - Plan 52-year-old male who was admitted to [facility] on September 11, 2017 - h/o of atrial flutter status post ablation by Dr. Stokes - systolic heart failure with an ejection fraction of 25%, hypertension, hyperlipidemia, and bladder cancer with chemo radiation in 2016. He presented to the ED after he slipped and fell. - - Mass discovered after slip and fall , presumably related to bladder cancer (treated in 2016) - Crainiotomy performed during this hospitalization, for mass removal - CSF leak occured, yeast growing in CSF, currently under treatment Potassium levels remain a problem. Continue potassium supplementation p.o. scheduled. As needed IV potassium supplements based on potassium findings. Potassium is being monitored twice a day. Lactulose placed on hold due to potential contribution to hypokalemia. Hypokalemia Replace potassium levels monitor for recurrence Lisa albicans Ventriculitis Continue Amphoteracin B Continue Diflucan ID following Bladder Cancer Brain metastasis Neurosurgery following Status post crainiotomy Continue steroids Oncology treatments on hold till infection cleared Thrombocytopenia Follow platelet counts Anemia Follow CBC Transfuse as needed CHF A-fib HTN Continue Lopressor, Vasotec, hydralazine, cardiology following. Hypokalemia Follow and replace as needed Steroid induced Hyperglycemia Follow blood sugars Insulin sliding scale Levemir DVT Prophylaxis Lovenox Discharge Planning SNF is likely an option after ventriculostomy tube can be removed Avoid apixaban at discharge, per cardiology
--- NOTE | 2017-11-03 10:58 | P.PNONC ---
Subjective Interval history: Afebrile Again patient reports feeling "tired" Poor appetite Denies bleeding or headache Objective Vital Signs/Intake & Output: Vital Signs 11/02/17 12:00 11/02/17 14:00 11/02/17 16:00 Temperature 98.1 F 98.7 F Pulse Rate 75 72 68 Respiratory Rate 21 21 Blood Pressure 100/66 95/56 L Pulse Oximetry 98 11/02/17 18:00 11/02/17 19:30 11/02/17 20:00 Temperature 98.5 F Pulse Rate 72 80 Respiratory Rate 26 H Blood Pressure 101/66 Pulse Oximetry 96 95 11/02/17 22:00 11/03/17 00:00 11/03/17 02:00 Temperature 98.8 F Pulse Rate 80 78 82 Respiratory Rate 21 Blood Pressure 109/67 Pulse Oximetry 96 11/03/17 04:00 11/03/17 06:00 11/03/17 08:43 Temperature 98.6 F Pulse Rate 80 78 Respiratory Rate 26 H Blood Pressure 117/75 Pulse Oximetry 94 L 94 L Intake & Output 11/02/17 11/03/17 11/03/17 18:59 06:59 18:59 Intake Total 800 / 800 1524.850 / 1524.850 Output Total 873 / 873 1320 / 1320 Balance -73 / -73 204.850 / 204.850 Weight 199 lb 1.239 oz Intake: IV 924.850 / 924.850 SoluMEDROL Inj 5 MG D5W Inj 3.8 3.925 / 3.925 ML Amphotericin B Conv. Inj 0. 1 MG In Bag/Syringe 1 EACH @ As Directed IT MoWeFr KATHERINE Rx#: [id number] SoluMEDROL Inj 5 MG D5W Inj 0.8 0.925 / 0.925 ML In Bag/Syringe 1 EACH @ As Directed IT MoWeFr KATHERINE Rx#: [id number] Ambisome Inj 481.5 MG In D5W 320 / 320 Inj 320 ML @ 125 mls/hr IV.SIG Q24H KATHERINE Rx#:[id number] Diflucan 400 mg Premix Bag 400 400 / 400 ML @ 100 mls/hr IV.SIG Q24H KATHERINE Rx#:[id number] KCl 20 mEq Premix Inj 20 meq In 200 / 200 100 ml @ 50 mls/hr IV.SIG Q2H KATHERINE Rx#:[id number] Oral 800 / 800 600 / 600 Output: Urine 820 / 820 Urine Amount (Catheter) 1250 / 1250 Condom 1250 / 1250 Intracranial Drainage 53 / 53 70 / 70 Left Temporoparietal 70 / 70 Right Temporoparietal 53 / 53 Other: Date of Last Bowel Movement 10/30/17 10/30/17 10/30/17 Result Diagrams: 11/03/17 06:20 11/03/17 06:20 Laboratory Results: Laboratory Results - last 24 hr 11/02/17 11/02/17 11/02/17 14:04 14:04 14:04 WBC 3.8 L RBC 2.90 L Hgb 8.7 L Hct 26.3 L MCV 91.0 MCH 30.1 MCHC 33.1 RDW 21.0 H Plt Count 44 L MPV 9.3 Prelim Diff (Auto) Slide review pending Neut % (Auto) 88.8 H Lymph % (Auto) 8.8 L [place] % (Auto) 1.7 Eos % (Auto) 0.1 Baso % (Auto) 0.6 Neut # (Auto) 3.4 Lymph # (Auto) 0.3 L [place] # (Auto) 0.1 Eos # (Auto) 0.0 Baso # (Auto) 0.0 WBC Differential . Diff Scan Auto diff confirmed Differential Comment . Platelet Estimate Low L Platelet Morphology Normal Tear Drop Cells 1+ H Ovalocytes 1+ H Fibrinogen 201 L Sodium 156 H* Potassium 2.0 L* Chloride 117 H Carbon Dioxide 22.7 Anion Gap 16 H BUN 40 H Creatinine 0.93 Estimated GFR 85 L POC Glucose Random Glucose 222 H Calcium 7.8 L Magnesium Total Bilirubin 0.9 AST 29 ALT 114 H Alkaline Phosphatase 109 Total Protein 4.9 L Albumin 2.4 L Bld Prod Order Comment 11/02/17 11/02/17 11/03/17 20:29 23:43 06:20 WBC 2.2 L RBC 2.74 L Hgb 8.2 L Hct 24.5 L MCV 89.5 MCH 29.8 MCHC 33.3 RDW 20.1 H Plt Count 32 L MPV 9.5 Prelim Diff (Auto) Slide review pending Neut % (Auto) 84.3 H Lymph % (Auto) 13.0 [place] % (Auto) 2.2 Eos % (Auto) 0.1 Baso % (Auto) 0.4 Neut # (Auto) 1.8 Lymph # (Auto) 0.3 L [place] # (Auto) 0.0 Eos # (Auto) 0.0 Baso # (Auto) 0.0 WBC Differential . Diff Scan Auto diff confirmed Differential Comment . Platelet Estimate Low L Platelet Morphology Normal Tear Drop Cells 1+ H Ovalocytes 1+ H Fibrinogen Sodium Potassium Chloride Carbon Dioxide Anion Gap BUN Creatinine Estimated GFR POC Glucose 207 H 233 H Random Glucose Calcium Magnesium Total Bilirubin AST ALT Alkaline Phosphatase Total Protein Albumin Bld Prod Order Comment 11/03/17 11/03/17 11/03/17 06:20 06:26 10:25 WBC RBC Hgb Hct MCV MCH MCHC RDW Plt Count MPV Prelim Diff (Auto) Neut % (Auto) Lymph % (Auto) [place] % (Auto) Eos % (Auto) Baso % (Auto) Neut # (Auto) Lymph # (Auto) [place] # (Auto) Eos # (Auto) Baso # (Auto) WBC Differential Diff Scan Differential Comment Platelet Estimate Platelet Morphology Tear Drop Cells Ovalocytes Fibrinogen Sodium 151 H Potassium 2.1 L* Chloride 114 H Carbon Dioxide 23.8 Anion Gap 13 BUN 38 H Creatinine 0.76 Estimated GFR Greater than 89 POC Glucose 197 H Random Glucose 168 H Calcium 8.1 L Magnesium 1.6 Total Bilirubin 1.0 AST 28 ALT 96 H Alkaline Phosphatase 108 Total Protein 5.0 L Albumin 2.2 L Bld Prod Order Comment Culture Results: Microbiology 10/30/17 Unknown Gram Stain - Final Shunt Fluid CSF Culture - Final No growth in 72 hours 10/30/17 Unknown Fungal Smear - Final Cerebral Spinal Fluid - Shunt Fluid No fungal elements seen 10/27/17 20:38 Fungal Smear - Final Cerebral Spinal Fluid - Lumbar Puncture No fungal elements seen Fungal Culture - Preliminary Lisa albicans 10/25/17 Unknown Fungal Smear - Final Cerebral Spinal Fluid - Shunt Fluid No fungal elements seen Fungal Culture - Preliminary Lisa albicans Medications: Active Medications Generic Name Dose Route Start Last Admin Trade Name Freq PRN Reason Stop Dose Admin Acetaminophen 650 mg 10/22/17 00:00 10/31/17 11:59 Tylenol PO 650 mg Q4H PRN Administration TEMP >101.5 Hydrocodone Bitart/Acetaminophen 1 tab 10/22/17 00:01 11/01/17 10:47 [place] 10/325 PO 1 tab Q4H PRN Administration PAIN SCALE 1-5 Hydrocodone Bitart/Acetaminophen 2 tab 10/22/17 00:00 10/28/17 21:43 [place] 10/325 PO 2 tab Q4H PRN Administration PAIN 6-10 Al Hydroxide/Mg Hydroxide 30 ml 10/22/17 06:00 11/03/17 06:43 Milk Of Magnesia Liq PO 30 ml Q12H KATHERINE Administration Artificial Tears 1 drop 10/22/17 06:00 11/03/17 06:44 Tears Naturale Opth Drops EACH EYE 1 drop Q8HR KATHERINE Administration Citalopram Hydrobromide 10 mg 10/30/17 09:15 11/03/17 09:24 Celexa PO 10 mg DAILY KATHERINE Administration Dexamethasone Sodium Phosphate 3 mg 10/22/17 00:00 11/03/17 06:43 Decadron Inj IV.PUSH 3 mg Q6HR KATHERINE Administration Diphenhydramine HCl 25 mg 10/22/17 22:30 11/02/17 23:22 Benadryl Inj IV.PUSH 25 mg Q24H KATHERINE Administration Enalapril Maleate 5 mg 10/22/17 00:00 11/02/17 23:23 Vasotec PO Not Given Q12H KATHERINE Fluconazole 400 mls @ 100 mls/hr 10/23/17 17:00 11/02/17 22:50 Diflucan 400 Mg Premix Bag IV.SIG Infused Q24H KATHERINE Infusion Amphotericin B 481.5 mg/ 320 mls @ 125 mls/hr 10/22/17 23:00 11/02/17 23:22 Dextrose IV.SIG 125 mls/hr Q24H KATHERINE Administration Potassium Chloride 20 meq in 100 mls @ 50 mls/hr 11/03/17 08:45 11/03/17 09: 24 Kcl 20 Meq Premix Inj IV.SIG 11/03/17 12:44 50 mls/hr Q2H KATHERINE Administration Methylprednisolone Sodium 0.925 mls @ 0 mls/hr 10/23/17 07:00 11/02/17 22:48 Succinate 5 mg/ Dextrose 0.8 IT Infused ml/ Syringe/Bag MoWeFr KATHERINE Infusion As Directed Methylprednisolone Sodium 3.925 mls @ 0 mls/hr 10/23/17 07:00 11/02/17 22:49 Succinate 5 mg/ Dextrose 3.8 IT Infused ml/ Amphotericin B 0.1 mg/ MoWeFr KATHERINE Infusion Syringe/Bag As Directed Insulin Detemir 6 unit 10/27/17 21:00 11/02/17 21:43 Levemir Inj SQ 6 unit HS KATHERINE Administration Insulin Human Regular 0 units 10/22/17 14:00 11/03/17 06:43 Novolin R Supplemental Scale SQ 2 units Q6HR KATHERINE Administration Protocol Lactulose 30 ml 10/22/17 09:00 11/03/17 09:23 Lactulose Liq PO 30 ml TID KATHERINE Administration Levetiracetam 500 mg 10/22/17 09:00 11/03/17 09:24 Keppra PO 500 mg Q12HR KATHERINE Administration Magnesium Oxide 800 mg 10/22/17 00:01 11/01/17 09:18 Mag-Ox PO 800 mg UNSCH PRN Administration For Magnesium 1.2 - 1.6 mg/dL Metoprolol Tartrate 50 mg 10/22/17 09:00 11/03/17 09:25 Lopressor PO 50 mg Q12H KATHERINE Administration Mirtazapine 15 mg 10/22/17 21:00 11/02/17 21:44 Remeron PO 15 mg HS [facility] Administration Pantoprazole Sodium 40 mg 10/22/17 09:00 11/03/17 09:27 Protonix Inj IV.PUSH Not Given DAILY [facility] Pantoprazole Sodium 40 mg 10/22/17 09:00 11/03/17 09:24 Protonix PO 40 mg DAILY [facility] Administration Potassium Bicarb/Potassium Chloride 50 meq 10/27/17 14:40 10/31/17 08:16 K-Lyte Cl Eff PO 50 meq UNSCH PRN Administration For Potassium 3.3 - 3.5 mEq/L Potassium Bicarb/Potassium Chloride 25 meq 11/01/17 21:00 11/03/17 09:26 K-Lyte Cl Eff PO 25 meq BID KATHERINE Administration Potassium Phosphate 2,000 mg 10/22/17 00:01 10/26/17 08:30 K-Phos Original PO 2,000 mg UNSCH PRN Administration SEE LABEL COMMENTS Senna/Docusate Sodium 2 tab 10/22/17 09:00 11/03/17 09:23 Dari-Colace PO 2 tab BID KATHERINE Administration Sodium Chloride 2 ml 10/22/17 09:00 11/03/17 09:27 Ns Flush IV.FLUSH 2 ml BID KATHERINE Administration Sodium Chloride 1 gm 10/22/17 09:00 11/02/17 12:17 Sodium Chloride PO 1 gm TID KATHERINE Administration Objective Remarks: GENERAL: Lethargic, middle-aged male resting in bed in no obvious distress SKIN: Warm and dry. HEAD: Normocephalic. Ventriculostomy to left side of scalp. Dressing covering right side. No oozing noted. EYES: No injection or drainage. NECK: Supple, trachea midline. CARDIOVASCULAR: Regular rate and rhythm without murmurs. RESPIRATORY: Breath sounds equal bilaterally. No accessory muscle use. GASTROINTESTINAL: Abdomen soft, non-tender, nondistended. EXTREMITIES: No cyanosis, or edema. MUSCULOSKELETAL: Adequate muscle tone. NEUROLOGICAL: Lethargic. Follows commands. PSYCHIATRIC: Patient seems depressed. He is answering questions via 1 or 2 word answers Assessment/Plan (1) Metastatic urothelial carcinoma Code(s): C79.10 - Secondary malignant neoplasm of unspecified urinary organs Status: Acute (2) Cerebral ventriculitis Code(s): G04.90 - Encephalitis and encephalomyelitis, unspecified Status: Acute - Plan 52y/o male with metastatic urothelial carcinoma. He has had a brain mass with pathology showing metastatic non-small cell carcinoma. He is positive for Lisa infection in cerebrospinal fluid. Infectious disease is following. Hematology re-consulted for thrombocytopenia. 1. Transfuse 1 unit platelets today for platelet count of 32,000. Ideally would like to keep platelets around 50,000. Pancytopenia due to infection/ medication side effect. - Attending Statement The exam, history, and the medical decision-making described in the above note were completed with the assistance of the mid-level provider. I reviewed and agree with the findings presented. I attest that I had a [id number] encounter with the patient on the same day, and personally performed and documented my assessment and findings in the medical record. Drowsy No obvious bleeding Plat tx today
[2017-11-03] MEDS ORDERED: Sodium Chlor 0.9% Inj 250 ML IV.SIG SCH (11:00)
[2017-11-03] MEDS: [UNRECOGNIZED DRUG - OTHER] IT SCH (11:59)
[2017-11-03] MEDS: DEXTROSE 5% IT SCH ×3 (11:59→12:00)
[2017-11-03] MEDS: METHYLPREDNISOLONE SOD SUC IT SCH ×3 (11:59→12:00)
[2017-11-03] MEDS: WATER IT SCH ×3 (11:59→12:00)
[2017-11-03] MEDS: [UNRECOGNIZED DRUG - OTHER] IT SCH ×2 (12:00)
--- NOTE | 2017-11-03 15:49 | P.PNNS ---
Subjective Interval history: 11/03: reports no headaches, OT in room feels getting stronger. <Marivel Desir - Last Filed: 11/03/17 15:43> Physical Exam Vital signs: Vital Signs 11/02/17 16:00 11/02/17 18:00 11/02/17 19:30 Temperature 98.7 F Pulse Rate 68 72 Respiratory Rate 21 Blood Pressure 95/56 L Pulse Oximetry 98 96 11/02/17 20:00 11/02/17 22:00 11/03/17 00:00 Temperature 98.5 F 98.8 F Pulse Rate 80 80 78 Respiratory Rate 26 H 21 Blood Pressure 101/66 109/67 Pulse Oximetry 95 96 11/03/17 02:00 11/03/17 04:00 11/03/17 06:00 Temperature 98.6 F Pulse Rate 82 80 78 Respiratory Rate 26 H Blood Pressure 117/75 Pulse Oximetry 94 L 11/03/17 08:00 11/03/17 08:43 11/03/17 10:00 Temperature 98.2 F Pulse Rate 84 70 Respiratory Rate 22 Blood Pressure 117/73 Pulse Oximetry 94 L 94 L 11/03/17 11:46 11/03/17 12:00 Temperature 98.2 F 98.5 F Pulse Rate 66 63 Respiratory Rate 22 21 Blood Pressure 105/69 105/69 Pulse Oximetry 98 96 Intake & Output 11/02/17 11/03/17 11/03/17 18:59 06:59 18:59 Intake Total 800 / 800 1524.850 / 1524.850 329 / 329 Output Total 873 / 873 1320 / 1320 Balance -73 / -73 204.850 / 204.850 329 / 329 Weight 90.3 kg Intake: IV 924.850 / 924.850 100 / 100 SoluMEDROL Inj 5 MG D5W Inj 3.8 3.925 / 3.925 ML Amphotericin B Conv. Inj 0. 1 MG In Bag/Syringe 1 EACH @ As Directed IT [facility] KATHERINE Rx#: [id number] SoluMEDROL Inj 5 MG D5W Inj 0.8 0.925 / 0.925 ML In Bag/Syringe 1 EACH @ As Directed IT [facility] KATHERINE Rx#: [id number] Ambisome Inj 481.5 MG In D5W 320 / 320 Inj 320 ML @ 125 mls/hr IV.SIG Q24H KATHERINE Rx#:[id number] Diflucan 400 mg Premix Bag 400 400 / 400 ML @ 100 mls/hr IV.SIG Q24H KATHERINE Rx#:[id number] KCl 20 mEq Premix Inj 20 meq In 200 / 200 100 / 100 100 ml @ 50 mls/hr IV.SIG Q2H KATHERINE Rx#:[id number] Oral 800 / 800 600 / 600 Intake (Blood Product) Amt 229 / 229 Prepooled Plts Leukoreduced 5d 229 / 229 Unit [id number] Output: Urine 820 / 820 Urine Amount (Catheter) 1250 / 1250 Condom 1250 / 1250 Intracranial Drainage 53 / 53 70 / 70 Left Temporoparietal 70 / 70 Right Temporoparietal 53 / 53 Other: Date of Last Bowel Movement 10/30/17 10/30/17 10/30/17 Narrative: ventriculostomy draining well, CSF reddish-brown posterior scalp incision healing well awake, mildly converses moves extremities with left side weakness - Urinary Catheter Management Condom Cath placed during this visit: yes Reason for continuing: Hourly intake/output Insertion date: 10/30/17 Insertion time: 13:34 CATHETER Cath placed during this visit: yes Reason for continuing: Other continuation reason Insertion date: 10/30/17 <Marivel Desir - Last Filed: 11/03/17 15:43> Vital signs: Vital Signs 11/03/17 18:00 11/03/17 20:00 11/03/17 20:05 Temperature 98.8 F Pulse Rate 66 70 66 Respiratory Rate 27 H Blood Pressure 94/55 L Pulse Oximetry 95 11/03/17 20:21 11/03/17 22:10 11/04/17 00:00 Temperature 99.8 F H Pulse Rate 81 76 Respiratory Rate 25 H Blood Pressure 115/73 Pulse Oximetry 95 11/04/17 02:00 11/04/17 04:00 11/04/17 06:10 Temperature 99.2 F Pulse Rate 76 70 70 Respiratory Rate Blood Pressure Pulse Oximetry 93 L 11/04/17 08:00 11/04/17 09:52 11/04/17 10:00 Temperature 99.5 F 99.5 F Pulse Rate 79 84 80 Respiratory Rate 21 Blood Pressure 107/67 108/65 Pulse Oximetry 93 L 94 L 11/04/17 10:09 11/04/17 10:14 11/04/17 12:00 Temperature 99.2 F 99.5 F 99.1 F Pulse Rate 92 H 66 69 Respiratory Rate 24 24 Blood Pressure 114/72 111/71 107/66 Pulse Oximetry 92 L 11/04/17 12:29 11/04/17 12:49 11/04/17 14:00 Temperature 99.1 F 99.1 F Pulse Rate 69 78 73 Respiratory Rate 25 H 25 H Blood Pressure 115/68 110/68 Pulse Oximetry 94 L 11/04/17 16:00 Temperature Pulse Rate 65 Respiratory Rate Blood Pressure Pulse Oximetry Intake & Output 11/03/17 11/04/17 11/04/17 18:59 06:59 18:59 Intake Total 1079 / 1079 4174.850 / 4174.850 100 / 100 Output Total 684 / 684 1525 / 1525 Balance 395 / 395 2649.850 / 2649.850 100 / 100 Weight 90.6 kg Intake: IV 100 / 100 1584.850 / 1584.850 100 / 100 SoluMEDROL Inj 5 MG D5W Inj 3.8 3.925 / 3.925 ML Amphotericin B Conv. Inj 0. 1 MG In Bag/Syringe 1 EACH @ As Directed IT [facility] KATHERINE Rx#: [id number] SoluMEDROL Inj 5 MG D5W Inj 0.8 0.925 / 0.925 ML In Bag/Syringe 1 EACH @ As Directed IT [facility] KATHERINE Rx#: [id number] Ambisome Inj 481.5 MG In D5W 730 / 730 Inj 320 ML @ 125 mls/hr IV.SIG Q24H KATHERINE Rx#:[id number] Diflucan 400 mg Premix Bag 400 400 / 400 ML @ 100 mls/hr IV.SIG Q24H KATHERINE Rx#:[id number] KCl 20 mEq Premix Inj 20 meq In 100 / 100 200 / 200 100 / 100 100 ml @ 50 mls/hr IV.SIG Q2H PRN Rx#:[id number] NS Inj 250 ML @ 15 mls/hr IV. 250 / 250 SIG ONCE KATHERINE Rx#:[id number] Oral 750 / 750 750 / 750 Anesthesia Amount 1400 / 1400 Other 440 / 440 Intake (Blood Product) Amt 229 / 229 0 / 0 Prepooled Plts Leukoreduced 5d 229 / 229 Unit [id number] Prepooled Plts Leukoreduced 5d 0 / 0 Unit [id number] Rbc As-3 Leukoreduced Unit 0 / 0 [id number] Output: Urine 820 / 820 Stool 0 / 0 Urine Amount (Catheter) 600 / 600 650 / 650 Condom 600 / 600 650 / 650 Wound Drainage 84 / 84 Right Occipital 84 / 84 Intracranial Drainage 55 / 55 Left Temporoparietal 55 / 55 Other: # Voids 1 Date of Last Bowel Movement 10/30/17 10/30/17 10/30/17 # Bowel Movements 0 0 - Urinary Catheter Management Condom Cath placed during this visit: no CATHETER Cath placed during this visit: no <Yomi Horvath - Last Filed: 11/04/17 17:38> Assessment and Plan - Assessment (1) Cerebral ventriculitis Code(s): G04.90 - Encephalitis and encephalomyelitis, unspecified Status: Acute (2) Metastatic urothelial carcinoma Code(s): C79.10 - Secondary malignant neoplasm of unspecified urinary organs Status: Acute - Plan CSF samples for reculturing obtained, dose for intrathecal ampho b/methylprednisolone given today cont ventriculostomy draining follow up repeat CSF cultures <Marivel Desir - Last Filed: 11/03/17 15:43> - Assessment (1) Cerebral ventriculitis Code(s): G04.90 - Encephalitis and encephalomyelitis, unspecified Status: Acute (2) Metastatic urothelial carcinoma Code(s): C79.10 - Secondary malignant neoplasm of unspecified urinary organs Status: Acute - Plan The exam, history, and the medical decision-making described in the above note were completed with the assistance of the mid-level provider. I reviewed and agree with the findings presented. I attest that I had a [id number] encounter with the patient on the same day, and personally performed and documented my assessment and findings in the medical record. <Yomi Horvath - Last Filed: 11/04/17 17:38>
--- NOTE | 2017-11-03 17:17 | P.PNID ---
Subjective Remarks: ID COVERAGE for Patient is a 52-year-old male, had surgery on a brain mass, and was found to have metastatic non-small cell carcinoma. Has recently been diagnosed to have Lisa ventriculitis, from a CSF October 10. Redo suboccipital craniectomy,C1 laminectomy, Duraplasty with repair of CSF leak on Oct 10, [address] CSF culture, October 10, October 16, and October 17 all with Lisa albicans Has been on amphotericin and fluconazole since October 11 Intrathecal M4 started yesterday Overnight events reviewed with RN s/p removal of old ventric and placement of new ventric. No seizures. No fever No rash No new issues No headaches today. No Nausea or vomiting, denies visual changes. Follows commands and talks,smiles Antibiotics: IV AMpho Intrathecal Ampho plus solumedrol IT. Fluconazole IV Lines: Lines ok Past Medical History: atrial flutter systolic heart failure likely chronic ejection fraction 25%, hypertension, hyperlipidemia bladder cancer status post removal with chemoradiation therapy 2015. ablation bladder surgery 2 yrs ago Allergies/Adverse Reactions: Allergies No Known Allergies Allergy (Unknown, Uncoded 07/08/17 00:15) Objective Vital Signs 11/02/17 18:00 11/02/17 19:30 11/02/17 20:00 Temperature 98.5 F Pulse Rate 72 80 Respiratory Rate 26 H Blood Pressure 101/66 Pulse Oximetry 96 95 11/02/17 22:00 11/03/17 00:00 11/03/17 02:00 Temperature 98.8 F Pulse Rate 80 78 82 Respiratory Rate 21 Blood Pressure 109/67 Pulse Oximetry 96 11/03/17 04:00 11/03/17 06:00 11/03/17 08:00 Temperature 98.6 F 98.2 F Pulse Rate 80 78 84 Respiratory Rate 26 H 22 Blood Pressure 117/75 117/73 Pulse Oximetry 94 L 94 L 11/03/17 08:43 11/03/17 10:00 11/03/17 11:46 Temperature 98.2 F Pulse Rate 70 66 Respiratory Rate 22 Blood Pressure 105/69 Pulse Oximetry 94 L 98 11/03/17 12:00 Temperature 98.5 F Pulse Rate 63 Respiratory Rate 21 Blood Pressure 105/69 Pulse Oximetry 96 Intake & Output 11/02/17 11/03/17 11/03/17 18:59 06:59 18:59 Intake Total 800 / 800 1524.850 / 1524.850 329 / 329 Output Total 873 / 873 1320 / 1320 Balance -73 / -73 204.850 / 204.850 329 / 329 Weight 90.3 kg Intake: IV 924.850 / 924.850 100 / 100 SoluMEDROL Inj 5 MG D5W Inj 3.8 3.925 / 3.925 ML Amphotericin B Conv. Inj 0. 1 MG In Bag/Syringe 1 EACH @ As Directed IT [facility] KATHERINE Rx#: [id number] SoluMEDROL Inj 5 MG D5W Inj 0.8 0.925 / 0.925 ML In Bag/Syringe 1 EACH @ As Directed IT [facility] KATHERINE Rx#: [id number] Ambisome Inj 481.5 MG In D5W 320 / 320 Inj 320 ML @ 125 mls/hr IV.SIG Q24H KATHERINE Rx#:[id number] Diflucan 400 mg Premix Bag 400 400 / 400 ML @ 100 mls/hr IV.SIG Q24H KATHERINE Rx#:[id number] KCl 20 mEq Premix Inj 20 meq In 200 / 200 100 / 100 100 ml @ 50 mls/hr IV.SIG Q2H KATHERINE Rx#:[id number] Oral 800 / 800 600 / 600 Intake (Blood Product) Amt 229 / 229 Prepooled Plts Leukoreduced 5d 229 / 229 Unit [id number] Output: Urine 820 / 820 Urine Amount (Catheter) 1250 / 1250 Condom 1250 / 1250 Intracranial Drainage 53 / 53 70 / 70 Left Temporoparietal 70 / 70 Right Temporoparietal 53 / 53 Other: Date of Last Bowel Movement 10/30/17 10/30/17 10/30/17 11/03/17 11:30 Cerebral Spinal Fluid - Shunt Fluid Fungal Smear - Pending 11/03/17 11:30 Cerebral Spinal Fluid - Shunt Fluid Fungal Culture - Pending 11/03/17 11:30 Shunt Fluid Gram Stain - Final 11/03/17 11:30 Shunt Fluid CSF Culture - Pending 10/30/17 Unknown Shunt Fluid Gram Stain - Final 10/30/17 Unknown Shunt Fluid CSF Culture - Final No growth in 72 hours 10/30/17 Unknown Cerebral Spinal Fluid - Shunt Fluid Fungal Smear - Final No fungal elements seen 10/30/17 Unknown Cerebral Spinal Fluid - Shunt Fluid Fungal Culture - Pending Lab - Hematology Results 11/02/17 11/03/17 14:04 06:20 WBC 3.8 L 2.2 L RBC 2.90 L 2.74 L Hgb 8.7 L 8.2 L Hct 26.3 L 24.5 L MCV 91.0 89.5 MCH 30.1 29.8 MCHC 33.1 33.3 RDW 21.0 H 20.1 H Plt Count 44 L 32 L MPV 9.3 9.5 Prelim Diff (Auto) Slide review pending Slide review pending Neut % (Auto) 88.8 H 84.3 H Lymph % (Auto) 8.8 L 13.0 [place] % (Auto) 1.7 2.2 Eos % (Auto) 0.1 0.1 Baso % (Auto) 0.6 0.4 Neut # (Auto) 3.4 1.8 Lymph # (Auto) 0.3 L 0.3 L [place] # (Auto) 0.1 0.0 Eos # (Auto) 0.0 0.0 Baso # (Auto) 0.0 0.0 WBC Differential . . Diff Scan Auto diff confirmed Auto diff confirmed Differential Comment . . Platelet Estimate Low L Low L Platelet Morphology Normal Normal Tear Drop Cells 1+ H 1+ H Ovalocytes 1+ H 1+ H Lab - Chemistry Results 11/01/17 11/02/17 11/02/17 22:55 05:54 14:04 Sodium 156 H* Potassium 2.0 L* Chloride 117 H Carbon Dioxide 22.7 Anion Gap 16 H BUN 40 H Creatinine 0.93 Estimated GFR 85 L POC Glucose 196 H 170 H Random Glucose 222 H Calcium 7.8 L Magnesium Total Bilirubin 0.9 AST 29 ALT 114 H Alkaline Phosphatase 109 Total Protein 4.9 L Albumin 2.4 L 11/02/17 11/02/17 11/03/17 20:29 23:43 06:20 Sodium 151 H Potassium 2.1 L* Chloride 114 H Carbon Dioxide 23.8 Anion Gap 13 BUN 38 H Creatinine 0.76 Estimated GFR Greater than 89 POC Glucose 207 H 233 H Random Glucose 168 H Calcium 8.1 L Magnesium 1.6 Total Bilirubin 1.0 AST 28 ALT 96 H Alkaline Phosphatase 108 Total Protein 5.0 L Albumin 2.2 L 11/03/17 06:26 Sodium Potassium Chloride Carbon Dioxide Anion Gap BUN Creatinine Estimated GFR POC Glucose 197 H Random Glucose Calcium Magnesium Total Bilirubin AST ALT Alkaline Phosphatase Total Protein Albumin Imaging: ITS Impressions Chest X-Ray 10/23/17 00:00 CONCLUSION: The lungs are clear. Head CT 10/26/17 00:00 CONCLUSION: Slight interval increase in size of hemorrhage in the left paramedian posterior fossa. Liver Ultrasound 10/27/17 00:00 CONCLUSION: 1. Simple right renal cyst. 2. Otherwise normal examination of the abdomen. Physical Exam: Physical Exam CONSTITUTIONAL/GENERAL: Keeps eyes closed, but he follows commands. He answers some questions this is an adequately nourished patient, in no apparent distress. SKIN: No jaundice, rashes, or lesions. Warm and dry HEAD: Ventric in place with blood-tinged CSF . R parietal incision clean EYES: Extraocular motions intact. No scleral icterus. No injection or drainage. Fundi not examined. ENT: Nose without bleeding or purulent drainage. Moist mucosa CARDIOVASCULAR: Regular rate and rhythm without murmurs, gallops, or rubs. RESPIRATORY/CHEST: Symmetric, unlabored respirations. Clear to auscultation. Breath sounds equal bilaterally. No wheezes, rales, or rhonchi. GASTROINTESTINAL: Abdomen soft, non-tender, nondistended. No guarding. Bowel sounds present. Has an umbilical hernia GENITOURINARY: Without palpable bladder distension MUSCULOSKELETAL: Extremities without clubbing, cyanosis, or edema.. No calf tenderness. No mottling or clubbing. NEUROLOGICAL: Awake, follows commands. Right hand silver brazer much stronger compared to the left PSYCHIATRIC: Cooperative LINE: No evidence of infection Assessment and Plan - Plan IMPRESSION Bladder cancer, metastatic with brain mets per oncology notes: metastatic urothelial carcinoma. He has had a brain mass with pathology showing metastatic non-small cell carcinoma. S/P neurosurgical procedure C albicans ventriculitis Serratia, PSAE PNA Serratia bacteremia : source is likley PNA line (PICC), vs PNA vs surgical site infection sp 1 week of treatment Thrombocytopenia PLAN Continue Ampho B Intrathecal zaida clinical Pharmacist Alpesh with RN Shahrzad he will place labels and instructions on syringes for dosing on Monday, Mon, Monday. 1. Solumedrol (Methylprednisone) Intrathecal 2. Intrathecal Ampho plus Intrathecal Solumedrol combo syringe. Continue IV ampho B Continue Diflucan IV. zaida RN fluid collected today and sent to micro/lab. Also Ampho Intrathecal given Monitor progress. dw RN covering the weekend and available prn. to resume care on Monday11/06/2017.
[2017-11-03] MEDS ORDERED: Potassium Chlor 20 mEq Premix 20 MEQ/100 ML PIGGYBACK IV.SIG ONE (20:11)
[2017-11-03] MEDS ORDERED: Potassium Chlor 20 mEq Premix 20 MEQ/100 ML PIGGYBACK IV.SIG PRN (20:22)
[2017-11-03] MEDS: Insulin Detemir Inj 1,000 UNIT/10 ML Vial SQ SCH (20:42)
[2017-11-03] MEDS: Mirtazapine 15 MG Tablet PO SCH (20:43)
[2017-11-03] MEDS: DEXTROSE 5% IV.SIG SCH ×2 (23:53)
[2017-11-03] MEDS: WATER IV.SIG SCH ×2 (23:53)
[2017-11-03] MEDS: AMPHOTERICIN B LIPOSOMAL IV.SIG SCH ×2 (23:53)
[2017-11-04] MEDS: Insulin NovoLIN Regular Correctional Sugar Inj SQ SCH ×4 (00:43→18:02)
[2017-11-04 05:18] LABS: Baso % (Auto) 0.6 % (0.0-2.0); Lymph # (Auto) 0.2 th/mm3 (1.0-4.8); Lymph % (Auto) 10.9 % (9.0-44.0); Mean Corpuscular HGB Conc 33.1 % (32.0-36.0); Mean Corpuscular Hemoglobin 29.7 pg (27.0-34.0); Mean Corpuscular Volume 89.9 fL (80.0-100.0); Mean Platelet Volume 9.8 fL (7.0-11.0); Mono % (Auto) 2.1 % (0.0-8.0); Neut # (Auto) 1.9 th/mm3 (1.8-7.7); Neut % (Auto) 86.4 % (16.0-70.0); Platelet Count 38 th/mm3 (150-450); Red Blood Count 2.31 mil/mm3 (4.50-5.90); Red Cell Distribution Width 20.2 % (11.6-17.2); White Blood Count 2.2 th/mm3 (4.0-11.0)
[2017-11-04 05:38] LABS: Hematocrit 20.8 % (39.0-51.0); Hemoglobin 6.9 gm/dL (13.0-17.0)
[2017-11-04 06:19] LABS: Alanine Aminotransferase 72 U/L (12-78); Anion Gap 13 meq/L (5-15); Aspartate Aminotransferase 25 U/L (15-37); Blood Urea Nitrogen 41 mg/dL (7-18); Calcium 7.7 mg/dL (8.5-10.1); Carbon Dioxide 23.3 meq/L (21.0-32.0); Chloride 115 meq/L (98-107); Glomerular Filtration Rate Greater Than 89 mL/min (>89); Glucose,Random 209 mg/dL (74-106); Magnesium 1.8 mg/dL (1.5-2.5); Phosphorus 2.3 mg/dL (2.5-4.9); Sodium 151 meq/L (136-145)
[2017-11-04 06:23] LABS: Alkaline Phosphatase 97 U/L (45-117); Total Protein 4.8 g/dL (6.4-8.2)
[2017-11-04 06:24] LABS: Potassium 2.6 meq/L (3.5-5.1)
[2017-11-04] MEDS ORDERED: Sodium Chlor 0.9% Inj 250 ML IV.SIG SCH ×2 (07:00→11:00)
[2017-11-04] MEDS: Artificial Tears Opth Drops 15 ML Bottle EACH EYE SCH ×3 (07:48→21:42)
[2017-11-04] MEDS: Pantoprazole Inj 40 MG Vial IV.PUSH SCH (09:01)
[2017-11-04] MEDS: Senna/Docusate Sodium 8.6/50 MG Tablet PO SCH ×2 (09:17→21:41)
[2017-11-04] MEDS: Citalopram 20 MG Tablet PO SCH (09:17)
[2017-11-04] MEDS: Metoprolol Tartrate 50 MG Tablet PO SCH ×2 (09:17→21:42)
[2017-11-04] MEDS: levETIRAcetam 500 MG Tablet PO SCH ×2 (09:17→21:40)
[2017-11-04] MEDS: Potassium Chloride 25 MEQ Effervescent Tablet PO SCH ×2 (09:18→21:40)
[2017-11-04 09:46] LABS: Lymphocytes 7 % (9-44); Metamyelocytes 1 % (0-1); Monocytes 2 % (0-8); Ovalocytes 1+; Tallied Nucleated RBC 6 (0-0); Tear Drop Cells 1+; Toxic Granulation 1+
[2017-11-04 09:47] LABS: Dohle Bodies Present; Platelet Morphology Normal (Normal)
--- NOTE | 2017-11-04 10:42 | P.PNIM ---
Subjective Interval history: Poor appetite and refused to eat eggs this morning. He is open to drinking strawberry supplement drinks. He complains of no pain at this time. Physical Exam Vital signs: Vital Signs 11/03/17 11:46 11/03/17 12:00 11/03/17 14:00 Temperature 98.2 F 98.5 F Pulse Rate 66 63 70 Respiratory Rate 22 21 Blood Pressure 105/69 105/69 Pulse Oximetry 98 96 11/03/17 16:00 11/03/17 18:00 11/03/17 20:00 Temperature 98.5 F 98.8 F Pulse Rate 70 66 70 Respiratory Rate 24 27 H Blood Pressure 105/68 94/55 L Pulse Oximetry 96 95 11/03/17 20:05 11/03/17 20:21 11/03/17 22:10 Temperature Pulse Rate 66 81 Respiratory Rate Blood Pressure Pulse Oximetry 95 11/04/17 00:00 11/04/17 02:00 11/04/17 04:00 Temperature 99.8 F H 99.2 F Pulse Rate 76 76 70 Respiratory Rate 25 H Blood Pressure 115/73 Pulse Oximetry 93 L 11/04/17 06:10 11/04/17 09:52 11/04/17 10:09 Temperature 99.5 F 99.2 F Pulse Rate 70 84 92 H Respiratory Rate 21 24 Blood Pressure 108/65 114/72 Pulse Oximetry 94 L Intake & Output 11/03/17 11/04/17 11/04/17 18:59 06:59 18:59 Intake Total 1079 / 1079 4174.850 / 4174.850 0 / 0 Output Total 684 / 684 1525 / 1525 Balance 395 / 395 2649.850 / 2649.850 0 / 0 Weight 90.6 kg Intake: IV 100 / 100 1584.850 / 1584.850 SoluMEDROL Inj 5 MG D5W Inj 3.8 3.925 / 3.925 ML Amphotericin B Conv. Inj 0. 1 MG In Bag/Syringe 1 EACH @ As Directed IT [facility] KATHERINE Rx#: [id number] SoluMEDROL Inj 5 MG D5W Inj 0.8 0.925 / 0.925 ML In Bag/Syringe 1 EACH @ As Directed IT [facility] KATHERINE Rx#: [id number] Ambisome Inj 481.5 MG In D5W 730 / 730 Inj 320 ML @ 125 mls/hr IV.SIG Q24H KATHERINE Rx#:[id number] Diflucan 400 mg Premix Bag 400 400 / 400 ML @ 100 mls/hr IV.SIG Q24H KATHERINE Rx#:[id number] KCl 20 mEq Premix Inj 20 meq In 100 / 100 200 / 200 100 ml @ 0 mls/hr IV.SIG .STK- MED ONE Rx#:[id number] NS Inj 250 ML @ 15 mls/hr IV. 250 / 250 SIG ONCE KATHERINE Rx#:[id number] Oral 750 / 750 750 / 750 Anesthesia Amount 1400 / 1400 Other 440 / 440 Intake (Blood Product) Amt 229 / 229 0 / 0 Prepooled Plts Leukoreduced 5d 229 / 229 Unit [id number] Rbc As-3 Leukoreduced Unit 0 / 0 [id number] Output: Urine 820 / 820 Stool 0 / 0 Urine Amount (Catheter) 600 / 600 650 / 650 Condom 600 / 600 650 / 650 Wound Drainage 84 / 84 Right Occipital 84 / 84 Intracranial Drainage 55 / 55 Left Temporoparietal 55 / 55 Other: # Voids 1 Date of Last Bowel Movement 10/30/17 10/30/17 10/30/17 # Bowel Movements 0 0 Narrative: GENERAL: This is a well-nourished, well-developed patient, in no apparent distress with ventriculostomy draining well, posterior scalp incision clean. CARDIOVASCULAR: Regular rate and rhythm without murmurs, gallops, or rubs. RESPIRATORY: Clear to auscultation. Breath sounds equal bilaterally. No wheezes , rales, or rhonchi. GASTROINTESTINAL: Abdomen soft, non-tender, nondistended. Normal active bowel sounds MUSCULOSKELETAL: Extremities without clubbing, cyanosis, or edema. Buttocks skin: Mild reddish skin breakdown excoriating with peeling of the sacrum area, no drainage seen. NEURO: Awake to person and place, does answer simple questions moves extremities with left side weakness - Urinary Catheter Management Condom Cath placed during this visit: yes Reason for continuing: Hourly intake/output Insertion date: 10/30/17 Insertion time: 13:34 CATHETER Cath placed during this visit: yes Reason for continuing: Other continuation reason Insertion date: 10/30/17 Results - Labs CBC & Chem 7: 11/04/17 04:08 11/04/17 04:28 Laboratory Results - last 24 hr 11/03/17 11/03/17 11/03/17 10:25 18:29 20:25 WBC RBC Hgb Hct MCV MCH MCHC RDW Plt Count MPV Prelim Diff (Auto) Neut % (Auto) Lymph % (Auto) [place] % (Auto) Eos % (Auto) Baso % (Auto) Neut # (Auto) Lymph # (Auto) [place] # (Auto) Eos # (Auto) Baso # (Auto) WBC Differential Seg Neuts % (Manual) Band Neuts % (Manual) Lymphocytes % (Manual) Monocytes % (Manual) Metamyelocytes % (Man) Abs Neuts (Manual) Nucleated RBCs/100 WBC Differential Comment Toxic Granulation Dohle Bodies Platelet Estimate Platelet Morphology Tear Drop Cells Ovalocytes Sodium Potassium 2.4 L* Chloride Carbon Dioxide Anion Gap BUN Creatinine Estimated GFR POC Glucose 185 H Random Glucose Calcium Phosphorus Magnesium Total Bilirubin AST ALT Alkaline Phosphatase Total Protein Albumin Blood Type Antibody Screen MTS Gel Crossmatch Bld Prod Order Comment 11/04/17 11/04/17 11/04/17 00:33 04:08 04:28 WBC 2.2 L RBC 2.31 L Hgb 6.9 L* Hct 20.8 L* MCV 89.9 MCH 29.7 MCHC 33.1 RDW 20.2 H Plt Count 38 L MPV 9.8 Prelim Diff (Auto) Slide review pending Neut % (Auto) 86.4 H Lymph % (Auto) 10.9 [place] % (Auto) 2.1 Eos % (Auto) 0.0 Baso % (Auto) 0.6 Neut # (Auto) 1.9 Lymph # (Auto) 0.2 L [place] # (Auto) 0.0 Eos # (Auto) 0.0 Baso # (Auto) 0.0 WBC Differential Manual diff final Seg Neuts % (Manual) 58 Band Neuts % (Manual) 32 H Lymphocytes % (Manual) 7 L Monocytes % (Manual) 2 Metamyelocytes % (Man) 1 Abs Neuts (Manual) 2.0 Nucleated RBCs/100 WBC 6 H Differential Comment . Toxic Granulation 1+ H Dohle Bodies Present H Platelet Estimate Low L Platelet Morphology Normal Tear Drop Cells 1+ H Ovalocytes 1+ H Sodium 151 H Potassium 2.6 L* Chloride 115 H Carbon Dioxide 23.3 Anion Gap 13 BUN 41 H Creatinine 0.67 Estimated GFR Greater than 89 POC Glucose 218 H Random Glucose 209 H Calcium 7.7 L Phosphorus 2.3 L Magnesium 1.8 Total Bilirubin 1.1 H AST 25 ALT 72 Alkaline Phosphatase 97 Total Protein 4.8 L Albumin 2.0 L Blood Type Antibody Screen MTS Gel Crossmatch Bld Prod Order Comment 11/04/17 11/04/17 05:53 07:52 WBC RBC Hgb Hct MCV MCH MCHC RDW Plt Count MPV Prelim Diff (Auto) Neut % (Auto) Lymph % (Auto) [place] % (Auto) Eos % (Auto) Baso % (Auto) Neut # (Auto) Lymph # (Auto) [place] # (Auto) Eos # (Auto) Baso # (Auto) WBC Differential Seg Neuts % (Manual) Band Neuts % (Manual) Lymphocytes % (Manual) Monocytes % (Manual) Metamyelocytes % (Man) Abs Neuts (Manual) Nucleated RBCs/100 WBC Differential Comment Toxic Granulation Dohle Bodies Platelet Estimate Platelet Morphology Tear Drop Cells Ovalocytes Sodium Potassium Chloride Carbon Dioxide Anion Gap BUN Creatinine Estimated GFR POC Glucose 229 H Random Glucose Calcium Phosphorus Magnesium Total Bilirubin AST ALT Alkaline Phosphatase Total Protein Albumin Blood Type O Positive Antibody Screen Negative MTS Gel Crossmatch See Detail Bld Prod Order Comment Microbiology 11/03/17 11:30 Cerebral Spinal Fluid - Shunt Fluid Fungal Smear - Final No fungal elements seen 11/03/17 11:30 Shunt Fluid Gram Stain - Final - Procedures 09/24>s/p stereotactic image guided suboccipital craniectomy, C1 laminectomy, microsurgical resection of metastatic carcinoma, duraplasty - 08/23>Right frontal [employer] hole with placement of a ventriculostomy catheter removed 09/22 Left 4.4 cm cerebellar brain mass with vasogenic edema s/p EVD 09/29 for base of skull CSF leak vs. seroma.s/p [place] hole with ventriculostomy placement 10/10 for CSF leak 10/30 Left frontal catracho hole with placement of ventriculostomy catheter Assessment and Plan - Assessment (1) Hypokalemia Code(s): E87.6 - Hypokalemia Status: Acute (2) Cerebral ventriculitis Code(s): G04.90 - Encephalitis and encephalomyelitis, unspecified Status: Acute (3) Metastatic urothelial carcinoma Code(s): C79.10 - Secondary malignant neoplasm of unspecified urinary organs Status: Acute (4) History of bladder cancer Code(s): Z85.51 - Personal history of malignant neoplasm of bladder Status: Acute - Plan 52-year-old male who was admitted to [facility] on September 11, 2017 - h/o of atrial flutter status post ablation by Dr. Mantilla - Systolic heart failure with an ejection fraction of 25%, hypertension, hyperlipidemia, and bladder cancer with chemo radiation in 2016. He presented to the ED after he slipped and fell. - - Mass discovered after slip and fall , presumably related to bladder cancer (treated in 2016) - Craniotomy performed during this hospitalization, for mass removal - CSF leak occurred, yeast growing in CSF, currently under treatment Potassium levels remain a problem. Continue potassium supplementation p.o. scheduled. As needed IV potassium supplements based on potassium findings. Potassium is being monitored twice a day. Lactulose placed on hold due to potential contribution to hypokalemia. Hypokalemia Phosphatemia Replace potassium levels; replete phosphorum Lisa albicans Ventriculitis Continue Amphoteracin B Continue Diflucan ID following Bladder Cancer Brain metastasis Neurosurgery following Status post crainiotomy Continue steroids Oncology treatments on hold till infection cleared Continue physical therapy Thrombocytopenia Follow platelet counts Transfuse 1 unit of platelets to keep platelets above 50,000 Anemia Follow CBC, hemoglobin 6.9 today Transfuse 1 unit of hemoglobin today. Chronic systolic CHF A-fib, chronic HTN Continue Lopressor, Vasotec, hydralazine, cardiology following. Malnutrition with anorexia- Marinol initiated and will change diet to pured with honey thickened liquids, supplements given. Dietitian consultation Steroid induced Hyperglycemia Follow blood sugars Insulin sliding scale Levemir Early development of sacral decubitus stage Iwound care nurse consult and barrier cream to the area. DVT Prophylaxis Lovenox held due to thrombocytopenia Discharge Planning SNF is likely an option after ventriculostomy tube can be removed Avoid apixaban at discharge, per cardiology
[2017-11-04] MEDS: Potassium Chlor 20 mEq Premix 20 MEQ/100 ML PIGGYBACK IV.SIG PRN ×3 (10:59→17:41)
[2017-11-04] MEDS ORDERED: DRONABINOL 2.5 MG CAPSULE PO SCH (21:00)
[2017-11-04] MEDS: Insulin Detemir Inj 1,000 UNIT/10 ML Vial SQ SCH (21:40)
[2017-11-04] MEDS: Mirtazapine 15 MG Tablet PO SCH (21:41)
[2017-11-04] MEDS: WATER IV.SIG SCH ×2 (23:14)
[2017-11-04] MEDS: AMPHOTERICIN B LIPOSOMAL IV.SIG SCH ×2 (23:14)
[2017-11-04] MEDS: DEXTROSE 5% IV.SIG SCH ×2 (23:14)
--- NOTE | 2017-11-04 23:57 | P.PNNS ---
Physical Exam Vital signs: Vital Signs 11/04/17 00:00 11/04/17 02:00 11/04/17 04:00 Temperature 99.8 F H 99.2 F Pulse Rate 76 76 70 Respiratory Rate 25 H Blood Pressure 115/73 Pulse Oximetry 93 L 11/04/17 06:10 11/04/17 08:00 11/04/17 09:52 Temperature 99.5 F 99.5 F Pulse Rate 70 79 84 Respiratory Rate 21 Blood Pressure 107/67 108/65 Pulse Oximetry 93 L 94 L 11/04/17 10:00 11/04/17 10:09 11/04/17 10:14 Temperature 99.2 F 99.5 F Pulse Rate 80 92 H 66 Respiratory Rate 24 24 Blood Pressure 114/72 111/71 Pulse Oximetry 11/04/17 12:00 11/04/17 12:29 11/04/17 12:49 Temperature 99.1 F 99.1 F 99.1 F Pulse Rate 69 69 78 Respiratory Rate 25 H 25 H Blood Pressure 107/66 115/68 110/68 Pulse Oximetry 92 L 94 L 11/04/17 14:00 11/04/17 16:00 11/04/17 18:00 Temperature 99.0 F Pulse Rate 73 71 64 Respiratory Rate Blood Pressure 105/66 Pulse Oximetry 94 L 11/04/17 19:52 11/04/17 20:00 11/04/17 22:00 Temperature 98.4 F Pulse Rate 66 58 L Respiratory Rate 24 Blood Pressure 107/64 Pulse Oximetry 94 L 92 L Intake & Output 11/04/17 11/04/17 11/05/17 06:59 18:59 06:59 Intake Total 4174.850 / 4174.850 600 / 600 400 / 400 Output Total 1525 / 1525 350 / 350 Balance 2649.850 / 2649.850 250 / 250 400 / 400 Weight 90.6 kg Intake: IV 1584.850 / 1584.850 200 / 200 400 / 400 SoluMEDROL Inj 5 MG D5W Inj 3.8 3.925 / 3.925 ML Amphotericin B Conv. Inj 0. 1 MG In Bag/Syringe 1 EACH @ As Directed IT [facility] Rx#: [id number] SoluMEDROL Inj 5 MG D5W Inj 0.8 0.925 / 0.925 ML In Bag/Syringe 1 EACH @ As Directed IT [facility] Rx#: [id number] Ambisome Inj 481.5 MG In D5W 730 / 730 Inj 320 ML @ 125 mls/hr IV.SIG Q24H [facility] Rx#:[id number] Diflucan 400 mg Premix Bag 400 400 / 400 400 / 400 ML @ 100 mls/hr IV.SIG Q24H [facility] Rx#:[id number] KCl 20 mEq Premix Inj 20 meq In 200 / 200 200 / 200 100 ml @ 50 mls/hr IV.SIG Q2H PRN Rx#:[id number] NS Inj 250 ML @ 15 mls/hr IV. 250 / 250 SIG ONCE [facility] Rx#:[id number] Oral 750 / 750 400 / 400 Anesthesia Amount 1400 / 1400 Other 440 / 440 Intake (Blood Product) Amt 0 / 0 Prepooled Plts Leukoreduced 5d 0 / 0 Unit [id number] Rbc As-3 Leukoreduced Unit 0 / 0 [id number] Output: Urine 820 / 820 Stool 0 / 0 Urine Amount (Catheter) 650 / 650 300 / 300 Condom 650 / 650 300 / 300 Intracranial Drainage 55 / 55 50 / 50 Left Temporoparietal 55 / 55 50 / 50 Other: # Voids 1 Date of Last Bowel Movement 10/30/17 10/30/17 10/30/17 # Bowel Movements 0 0 - Urinary Catheter Management Condom Cath placed during this visit: yes Reason for continuing: Hourly intake/output Insertion date: 10/30/17 Insertion time: 13:34 CATHETER Cath placed during this visit: yes Reason for continuing: Other continuation reason Insertion date: 10/30/17 Assessment and Plan - Assessment (1) Cerebral ventriculitis Code(s): G04.90 - Encephalitis and encephalomyelitis, unspecified Status: Acute (2) Metastatic urothelial carcinoma Code(s): C79.10 - Secondary malignant neoplasm of unspecified urinary organs Status: Acute - Plan The exam, history, and the medical decision-making described in the above note were completed with the assistance of the mid-level provider. I reviewed and agree with the findings presented. I attest that I had a [id number] encounter with the patient on the same day, and personally performed and documented my assessment and findings in the medical record.
[2017-11-05] MEDS: Insulin NovoLIN Regular Correctional Sugar Inj SQ SCH ×5 (00:30→23:58)
[2017-11-05] MEDS: Artificial Tears Opth Drops 15 ML Bottle EACH EYE SCH ×3 (06:32→22:22)
--- NOTE | 2017-11-05 09:31 | P.DIET ---
Nutritional Evaluation Type of nutrition evaluation: follow-up Nutrition screening: [facility] [place] (Malnutrition TF was stopped 10/06) Subjective Barriers to Nutrition: Refuses to eat at times, Swallowing problem Oral Diet Tolerance Assessment Indicates: Small amounts of food eaten Subjective Comments: Pt refused brkfst. Agrees to strawberry supplements Objective - Diagnosis Intracranial Mass, Fall, Facial Injury - Objective Body Weight Used for Calculations: Upper end of IBW Energy Needs - Lower Range (kCal/kg): 25 Energy Needs - Upper Range (kCal/kg): 30 Lower Limit kCal/kg (kCals): 1,775 Upper Limit kCal/kg (kCals): 2,130 Lower Limit Protein Factor (Grams per Kg): 1.2 Upper Limit Protein Factor (Grams per Kg): 1.6 Lower Protein Needs (Protein): 85 Upper Protein Needs (Protein): 114 Dietitian Reviewed in Medical Record: Current diet, Curent medications, Intake & Output, Labs, Medical history, Tube feeding Diet Order: Mechanical Soft with chopped meat, nectar thickened liquids Oral Diet Intake Amount: Poor <50% Speech Therapy Recommendations: Yes Wound Care Note: Consulted on 11/04, pending Objective Comments: PMH Includes: AFib, Systolic Heart Failure, HTN, hyperlipidemia, bladder CA CBW = 90.1 kg Labs include: WBC 2.2, Hgb 6.9, Hct 20.8, Glu 209, POC Glu 229, 204, 246, Na 151 , K+ 2.6 Meds include: Levemir, Marinol (-)BM Feeding - Current PO Supplement Current Supplement: Glucerna Shake Current Supplement Flavor: Jones Current Frequency of Supplement: Three times a day Current kCals Provided by Supplement: 220 Current Protein Provided by Supplement: 10 Assessment Assessment: Pt remains at high nutrition risk with inadequate po intake. Review of wts since admission indicate ~45.5# weight loss, although it is noted that the pt's BMI is 32.1 and wt is still above IBW range. Pt has agreed to drink strawberry supplements. Will provide strawberry Glucerna Supplements. Noted Marinol started 11/04. Noted early development of Stage I sacral decubitus, WOC consult pending. Recommend TF restart be considered if it is consistent with goals of care. Recommendations: 1. Diet texture per ST. 2000 ADA diet restriction if desired for glucose control 2. Provide Jones Glucerna Shakes TID 3. Consider TF to prevent further weight loss Dietitian to Monitor: Lab values, Glucose level, Supplement acceptance, Intake & Output, Diet tolerance, Weight change, PO Intake, Wound/skin status, Medical course
[2017-11-05] MEDS: Citalopram 20 MG Tablet PO SCH (11:52)
[2017-11-05] MEDS: Pantoprazole Inj 40 MG Vial IV.PUSH SCH (11:53)
[2017-11-05] MEDS: levETIRAcetam 500 MG Tablet PO SCH ×2 (11:53→21:21)
[2017-11-05] MEDS: Senna/Docusate Sodium 8.6/50 MG Tablet PO SCH ×2 (11:53→21:22)
[2017-11-05] MEDS: Potassium Chloride 25 MEQ Effervescent Tablet PO SCH ×2 (11:53→21:21)
[2017-11-05] MEDS: Metoprolol Tartrate 50 MG Tablet PO SCH ×2 (11:53→21:22)
[2017-11-05] MEDS ORDERED: Potassium Chlor 20 mEq Premix 20 MEQ/100 ML PIGGYBACK IV.SIG PRN ×2 (12:14)
[2017-11-05] MEDS ORDERED: Magnesium Sulfate Inj 4 GM in Sodium Chlor 0.9% Inj 92 ML IV.SIG PRN (12:14)
[2017-11-05] MEDS ORDERED: Potassium Chloride 25 MEQ Effervescent Tablet PO PRN (12:14)
[2017-11-05] MEDS ORDERED: Potassium Phosphate 500 MG Soluble Tablet PO PRN ×2 (12:14)
[2017-11-05] MEDS ORDERED: Potassium Chlor 40 mEq Premix 40 MEQ/100 ML PIGGYBACK IV.SIG PRN ×2 (12:14)
[2017-11-05] MEDS ORDERED: Potassium Phosphate Inj 30 MMOL in Sodium Chlor 0.9% Inj 250 ML IV.SIG PRN (12:14)
[2017-11-05] MEDS ORDERED: Magnesium Oxide 400 MG Tablet PO PRN (12:14)
[2017-11-05] MEDS ORDERED: Sodium Phosphate Inj 30 MMOL in Sodium Chlor 0.9% Inj 250 ML IV.SIG PRN (12:14)
[2017-11-05] MEDS ORDERED: Magnesium Sulfate Inj 2 GM in Sodium Chlor 0.9% Inj 96 ML IV.SIG PRN (12:14)
--- NOTE | 2017-11-05 12:16 | P.PNIM ---
Subjective Interval history: POOR APPETITE TODAY DW RN AND PT WILL START A APPETITE STIMULANT HAS EVD IN PLACE- REMAINS IN ICU Physical Exam Vital signs: Vital Signs 11/04/17 12:29 11/04/17 12:49 11/04/17 14:00 Temperature 99.1 F 99.1 F Pulse Rate 69 78 73 Respiratory Rate 25 H 25 H Blood Pressure 115/68 110/68 Pulse Oximetry 94 L 11/04/17 16:00 11/04/17 18:00 11/04/17 19:52 Temperature 99.0 F Pulse Rate 71 64 Respiratory Rate Blood Pressure 105/66 Pulse Oximetry 94 L 94 L 11/04/17 20:00 11/04/17 22:00 11/05/17 00:00 Temperature 98.4 F 98.5 F Pulse Rate 66 58 L 66 Respiratory Rate 24 20 Blood Pressure 107/64 108/66 Pulse Oximetry 92 L 94 L 11/05/17 02:00 11/05/17 04:00 11/05/17 06:00 Temperature 98.1 F Pulse Rate 66 62 62 Respiratory Rate 21 Blood Pressure 108/64 Pulse Oximetry 90 L 11/05/17 08:12 Temperature Pulse Rate Respiratory Rate Blood Pressure Pulse Oximetry 90 L Intake & Output 11/04/17 11/05/17 11/05/17 18:59 06:59 18:59 Intake Total 600 / 600 640 / 640 Output Total 350 / 350 1100 / 1100 Balance 250 / 250 -460 / -460 Weight 91.4 kg Intake: IV 200 / 200 400 / 400 Ambisome Inj 481.5 MG In D5W 0 / 0 Inj 320 ML @ 125 mls/hr IV.SIG Q24H [facility] Rx#:[id number] Diflucan 400 mg Premix Bag 400 400 / 400 ML @ 100 mls/hr IV.SIG Q24H [facility] Rx#:[id number] KCl 20 mEq Premix Inj 20 meq In 200 / 200 0 / 0 100 ml @ 50 mls/hr IV.SIG Q2H PRN Rx#:[id number] Oral 400 / 400 240 / 240 Intake (Blood Product) Amt 0 / 0 Prepooled Plts Leukoreduced 5d 0 / 0 Unit [id number] Rbc As-3 Leukoreduced Unit 0 / 0 [id number] Output: Stool 0 / 0 Urine Amount (Catheter) 300 / 300 1000 / 1000 Condom 300 / 300 1000 / 1000 Intracranial Drainage 50 / 50 100 / 100 Left Temporoparietal 50 / 50 100 / 100 Other: Date of Last Bowel Movement 10/30/17 10/30/17 # Bowel Movements 0 0 Narrative: GENERAL: This is a well-nourished, well-developed patient, in no apparent distress with ventriculostomy draining well, posterior scalp incision clean. CARDIOVASCULAR: Regular rate and rhythm without murmurs, gallops, or rubs. RESPIRATORY: Clear to auscultation. Breath sounds equal bilaterally. No wheezes , rales, or rhonchi. GASTROINTESTINAL: Abdomen soft, non-tender, nondistended. Normal active bowel sounds MUSCULOSKELETAL: Extremities without clubbing, cyanosis, or edema. Buttocks skin: Mild reddish skin breakdown excoriating with peeling of the sacrum area, no drainage seen. NEURO: Awake to person and place, does answer simple questions moves extremities with left side weakness - Urinary Catheter Management Condom Cath placed during this visit: yes Reason for continuing: Hourly intake/output Insertion date: 10/30/17 Insertion time: 13:34 CATHETER Cath placed during this visit: yes Reason for continuing: Other continuation reason Insertion date: 10/30/17 Results - Labs CBC & Chem 7: 11/04/17 04:08 11/04/17 04:28 Laboratory Results - last 24 hr 11/04/17 11/04/17 11/04/17 07:52 10:26 21:34 POC Glucose 204 H MTS Gel Crossmatch See Detail Bld Prod Order Comment 11/05/17 11/05/17 01:07 06:25 POC Glucose 246 H 195 H MTS Gel Crossmatch Bld Prod Order Comment Microbiology 11/03/17 11:30 Shunt Fluid Gram Stain - Final 11/03/17 11:30 Shunt Fluid CSF Culture - Preliminary No growth in 48 hours 11/03/17 11:30 Cerebral Spinal Fluid - Shunt Fluid Fungal Smear - Final No fungal elements seen - Imaging Chest X-Ray 10/23/17 00:00 CONCLUSION: The lungs are clear. Head CT 10/26/17 00:00 CONCLUSION: Slight interval increase in size of hemorrhage in the left paramedian posterior fossa. Liver Ultrasound 10/27/17 00:00 CONCLUSION: 1. Simple right renal cyst. 2. Otherwise normal examination of the abdomen. - Procedures 6/3>s/p stereotactic image guided suboccipital craniectomy, C1 laminectomy, microsurgical resection of metastatic carcinoma, duraplasty - 08/23>Right frontal [place] hole with placement of a ventriculostomy catheter removed 09/22 Left 4.4 cm cerebellar brain mass with vasogenic edema s/p EVD 09/29 for base of skull CSF leak vs. seroma.s/p [place] hole with ventriculostomy placement 10/10 for CSF leak 10/30 Left frontal [place] hole with placement of ventriculostomy catheter Assessment and Plan - Assessment (1) Hypokalemia Code(s): E87.6 - Hypokalemia Status: Acute (2) Cerebral ventriculitis Code(s): G04.90 - Encephalitis and encephalomyelitis, unspecified Status: Acute (3) Metastatic urothelial carcinoma Code(s): C79.10 - Secondary malignant neoplasm of unspecified urinary organs Status: Acute (4) History of bladder cancer Code(s): Z85.51 - Personal history of malignant neoplasm of bladder Status: Acute - Plan 52-year-old male who was admitted to [facility] on September 11, 2017 - h/o of atrial flutter status post ablation by Dr. Mantilla - Systolic heart failure with an ejection fraction of 25%, hypertension, hyperlipidemia, and bladder cancer with chemo radiation in 2016. He presented to the ED after he slipped and fell. - - Mass discovered after slip and fall , presumably related to bladder cancer (treated in 2016) - Craniotomy performed during this hospitalization, for mass removal - CSF leak occurred, yeast growing in CSF, currently under treatment Potassium levels remain a problem. Continue potassium supplementation p.o. scheduled. As needed IV potassium supplements based on potassium findings. Potassium is being monitored twice a day. Lactulose placed on hold due to potential contribution to hypokalemia. Hypokalemia Phosphatemia Replace potassium levels; replete phosphorous AM LABS DEPRESSION POOR APPETITE CONTINUE CITALOPRAM 10MG PO DAILY INCREASE MARINOL TO AT LUNCH AND DINNER Lisa albicans Ventriculitis Continue Amphoteracin B Continue Diflucan ID following Bladder Cancer Brain metastasis Neurosurgery following Status post crainiotomy Continue steroids Oncology treatments on hold till infection cleared Continue physical therapy Thrombocytopenia Follow platelet counts Transfuse 1 unit of platelets to keep platelets above 50,000 Anemia Follow CBC, hemoglobin 6.9 today Transfuse 1 unit of hemoglobin today. AM LABS Chronic systolic CHF A-fib, chronic HTN Continue Lopressor, Vasotec, hydralazine, cardiology following. Malnutrition with anorexia- Marinol initiated and will change diet to pured with honey thickened liquids, supplements given. Dietitian consultation Steroid induced Hyperglycemia Follow blood sugars Insulin sliding scale Levemir Early development of sacral decubitus stage Iwound care nurse consult and barrier cream to the area. DVT Prophylaxis Lovenox held due to thrombocytopenia Discharge Planning SNF is likely an option after ventriculostomy tube can be removed Avoid apixaban at discharge, per cardiology Code Status: FULL CODE Discussed Condition With: RN AND PT Discharge Planning: ONCE CLEARED BY ID AND EVD IS OUT
[2017-11-05] MEDS: Insulin Detemir Inj 1,000 UNIT/10 ML Vial SQ SCH (21:21)
[2017-11-05] MEDS: Mirtazapine 15 MG Tablet PO SCH (21:22)
[2017-11-05] MEDS: DEXTROSE 5% IV.SIG SCH ×2 (22:39)
[2017-11-05] MEDS: WATER IV.SIG SCH ×2 (22:39)
[2017-11-05] MEDS: AMPHOTERICIN B LIPOSOMAL IV.SIG SCH ×2 (22:39)
[2017-11-06] MEDS: Artificial Tears Opth Drops 15 ML Bottle EACH EYE SCH ×3 (05:39→23:16)
[2017-11-06] MEDS: Insulin NovoLIN Regular Correctional Sugar Inj SQ SCH ×4 (06:12→23:42)
[2017-11-06 07:20] LABS: Hematocrit 27.2 % (39.0-51.0); Hemoglobin 9.1 gm/dL (13.0-17.0); Mean Corpuscular HGB Conc 33.3 % (32.0-36.0); Mean Corpuscular Hemoglobin 29.4 pg (27.0-34.0); Mean Corpuscular Volume 88.2 fL (80.0-100.0); Mean Platelet Volume 9.4 fL (7.0-11.0); Platelet Count 32 th/mm3 (150-450); Red Blood Count 3.09 mil/mm3 (4.50-5.90); Red Cell Distribution Width 19.2 % (11.6-17.2)
[2017-11-06 07:53] LABS: Alanine Aminotransferase 76 U/L (12-78); Alkaline Phosphatase 124 U/L (45-117); Anion Gap 11 meq/L (5-15); Aspartate Aminotransferase 29 U/L (15-37); Blood Urea Nitrogen 46 mg/dL (7-18); Calcium 8.3 mg/dL (8.5-10.1); Carbon Dioxide 24.7 meq/L (21.0-32.0); Chloride 116 meq/L (98-107); Glomerular Filtration Rate Greater Than 89 mL/min (>89); Glucose,Random 151 mg/dL (74-106); Magnesium 1.8 mg/dL (1.5-2.5); Phosphorus 3.2 mg/dL (2.5-4.9); Sodium 152 meq/L (136-145); Total Protein 5.4 g/dL (6.4-8.2)
[2017-11-06] MEDS ORDERED: Sodium Chlor 0.9% Inj 250 ML IV.SIG SCH (08:00)
[2017-11-06 08:01] LABS: Potassium 2.4 meq/L (3.5-5.1)
[2017-11-06] MEDS: Citalopram 20 MG Tablet PO SCH (08:17)
[2017-11-06] MEDS: Potassium Chloride 25 MEQ Effervescent Tablet PO SCH ×2 (08:17→23:15)
[2017-11-06] MEDS: levETIRAcetam 500 MG Tablet PO SCH ×2 (08:17→23:14)
[2017-11-06] MEDS: Potassium Chlor 20 mEq Premix 20 MEQ/100 ML PIGGYBACK IV.SIG PRN (08:18)
[2017-11-06] MEDS: Senna/Docusate Sodium 8.6/50 MG Tablet PO SCH ×2 (08:18→23:14)
[2017-11-06] MEDS: Pantoprazole Inj 40 MG Vial IV.PUSH SCH (08:18)
[2017-11-06 08:50] LABS: Lymphocytes 9 % (9-44); Monocytes 2 % (0-8); Myelocytes 3 % (0-0); Platelet Morphology Normal (Normal); Tallied Nucleated RBC 8 (0-0)
[2017-11-06 08:51] LABS: Ovalocytes 1+
--- NOTE | 2017-11-06 10:38 | P.PNIM ---
Subjective Interval history: 7 POOR APPETITE TODAY DW RN AND PT WILL START A APPETITE STIMULANT HAS EVD IN PLACE- REMAINS IN ICU - MARINOL ADJUSTED TO LUNCH AND DINNER YESTERDAY STILL POOR PO INTAKE WILL WAIT AND SEE IF MARINOL HELPS APPETITE DW RN AND PT EVD IN PLACE SEVERE HYPOKALEMIA WILL REPLACE AND RECHECK AM LABS Physical Exam Vital signs: Vital Signs 11/05/17 12:00 11/05/17 14:00 11/05/17 16:00 Temperature 98.6 F 97.7 F Pulse Rate 77 77 80 Respiratory Rate 24 20 Blood Pressure 123/70 113/69 Pulse Oximetry 93 L 91 L 11/05/17 18:00 11/05/17 19:54 11/05/17 20:00 Temperature 98.0 F Pulse Rate 82 80 Respiratory Rate 26 H Blood Pressure 113/74 Pulse Oximetry 93 L 93 L 11/05/17 22:00 11/06/17 00:00 11/06/17 02:00 Temperature 98.2 F Pulse Rate 88 68 68 Respiratory Rate 24 Blood Pressure 123/78 Pulse Oximetry 93 L 11/06/17 04:00 11/06/17 06:00 11/06/17 08:36 Temperature 98.5 F Pulse Rate 67 69 Respiratory Rate 26 H Blood Pressure 123/77 Pulse Oximetry 93 L 92 L 11/06/17 09:26 11/06/17 10:00 Temperature 98.7 F Pulse Rate 83 Respiratory Rate 28 H 28 H Blood Pressure 120/74 Pulse Oximetry 94 L Intake & Output 11/05/17 11/06/17 11/06/17 18:59 06:59 18:59 Intake Total 720 / 720 960 / 960 0 / 0 Output Total 1000 / 1000 705 / 705 Balance -280 / -280 255 / 255 0 / 0 Weight 89 kg Intake: IV 320 / 320 720 / 720 Ambisome Inj 481.5 MG In D5W 320 / 320 320 / 320 Inj 320 ML @ 125 mls/hr IV.SIG Q24H [facility] Rx#:[id number] Diflucan 400 mg Premix Bag 400 400 / 400 ML @ 100 mls/hr IV.SIG Q24H [facility] Rx#:[id number] Oral 400 / 400 240 / 240 Intake (Blood Product) Amt 0 / 0 Prepooled Plts Leukoreduced 5d 0 / 0 Unit [id number] Output: Urine Amount (Catheter) 1000 / 1000 700 / 700 Condom 1000 / 1000 700 / 700 Intracranial Drainage 5 / 5 Left Temporoparietal 5 / 5 Other: Date of Last Bowel Movement 10/30/17 10/30/17 # Bowel Movements 0 Narrative: GENERAL: This is a well-nourished, well-developed patient, in no apparent distress with ventriculostomy draining well, posterior scalp incision clean. CARDIOVASCULAR: Regular rate and rhythm without murmurs, gallops, or rubs. RESPIRATORY: Clear to auscultation. Breath sounds equal bilaterally. No wheezes , rales, or rhonchi. GASTROINTESTINAL: Abdomen soft, non-tender, nondistended. Normal active bowel sounds MUSCULOSKELETAL: Extremities without clubbing, cyanosis, or edema. Buttocks skin: Mild reddish skin breakdown excoriating with peeling of the sacrum area, no drainage seen. NEURO: Awake to person and place, does answer simple questions moves extremities with left side weakness - Urinary Catheter Management Condom Cath placed during this visit: yes Reason for continuing: Hourly intake/output Insertion date: 10/30/17 Insertion time: 13:34 CATHETER Cath placed during this visit: yes Reason for continuing: Other continuation reason Insertion date: 10/30/17 Results - Labs CBC & Chem 7: 11/06/17 06:46 11/06/17 06:46 Laboratory Results - last 24 hr 11/05/17 11/06/17 11/06/17 23:51 06:06 06:46 WBC 2.0 L RBC 3.09 L Hgb 9.1 L Hct 27.2 L MCV 88.2 MCH 29.4 MCHC 33.3 RDW 19.2 H Plt Count 32 L MPV 9.4 Prelim Diff (Auto) Manual diff required WBC Differential Manual diff final Seg Neuts % (Manual) 76 H Band Neuts % (Manual) 10 H Lymphocytes % (Manual) 9 Monocytes % (Manual) 2 Myelocytes % (Man) 3 H Abs Neuts (Manual) 1.8 Nucleated RBCs/100 WBC 8 H Differential Comment . Platelet Estimate Low L Platelet Morphology Normal Ovalocytes 1+ H Sodium Potassium Chloride Carbon Dioxide Anion Gap BUN Creatinine Estimated GFR POC Glucose 268 H 176 H Random Glucose Calcium Phosphorus Magnesium Total Bilirubin AST ALT Alkaline Phosphatase Total Protein Albumin Bld Prod Order Comment 11/06/17 11/06/17 06:46 07:59 WBC RBC Hgb Hct MCV MCH MCHC RDW Plt Count MPV Prelim Diff (Auto) WBC Differential Seg Neuts % (Manual) Band Neuts % (Manual) Lymphocytes % (Manual) Monocytes % (Manual) Myelocytes % (Man) Abs Neuts (Manual) Nucleated RBCs/100 WBC Differential Comment Platelet Estimate Platelet Morphology Ovalocytes Sodium 152 H Potassium 2.4 L* Chloride 116 H Carbon Dioxide 24.7 Anion Gap 11 BUN 46 H Creatinine 0.64 Estimated GFR Greater than 89 POC Glucose Random Glucose 151 H Calcium 8.3 L Phosphorus 3.2 Magnesium 1.8 Total Bilirubin 1.3 H AST 29 ALT 76 Alkaline Phosphatase 124 H Total Protein 5.4 L D Albumin 2.0 L Bld Prod Order Comment Microbiology 11/03/17 11:30 Shunt Fluid Gram Stain - Final 11/03/17 11:30 Shunt Fluid CSF Culture - Preliminary No growth in 48 hours - Procedures 09/24>s/p stereotactic image guided suboccipital craniectomy, C1 laminectomy, microsurgical resection of metastatic carcinoma, duraplasty - 08/23>Right frontal [place] hole with placement of a ventriculostomy catheter removed 09/22 Left 4.4 cm cerebellar brain mass with vasogenic edema s/p EVD 09/29 for base of skull CSF leak vs. seroma.s/p [place] hole with ventriculostomy placement 10/10 for CSF leak 10/30 Left frontal [place] hole with placement of ventriculostomy catheter Assessment and Plan - Assessment (1) Hypokalemia Code(s): E87.6 - Hypokalemia Status: Acute (2) Cerebral ventriculitis Code(s): G04.90 - Encephalitis and encephalomyelitis, unspecified Status: Acute (3) Metastatic urothelial carcinoma Code(s): C79.10 - Secondary malignant neoplasm of unspecified urinary organs Status: Acute (4) History of bladder cancer Code(s): Z85.51 - Personal history of malignant neoplasm of bladder Status: Acute - Plan 52-year-old male who was admitted to [facility] on September 11, 2017 - h/o of atrial flutter status post ablation by Dr. Mantilla - Systolic heart failure with an ejection fraction of 25%, hypertension, hyperlipidemia, and bladder cancer with chemo radiation in 2016. He presented to the ED after he slipped and fell. - - Mass discovered after slip and fall , presumably related to bladder cancer (treated in 2016) - Craniotomy performed during this hospitalization, for mass removal - CSF leak occurred, yeast growing in CSF, currently under treatment Potassium levels remain a problem. Continue potassium supplementation p.o. scheduled. As needed IV potassium supplements based on potassium findings. Potassium is being monitored twice a day. Lactulose placed on hold due to potential contribution to hypokalemia. Hypokalemia Phosphatemia Replace potassium levels; replete phosphorous AM LABS REPLACE POTASSIUM AGAIN DEPRESSION POOR APPETITE CONTINUE CITALOPRAM 10MG PO DAILY INCREASE MARINOL TO AT LUNCH AND DINNER Lisa albicans Ventriculitis Continue Amphoteracin B Continue Diflucan ID following Bladder Cancer Brain metastasis Neurosurgery following Status post crainiotomy Continue steroids Oncology treatments on hold till infection cleared Continue physical therapy Thrombocytopenia Follow platelet counts Transfuse 1 unit of platelets to keep platelets above 50,000 Anemia Follow CBC, hemoglobin 6.9 today Transfuse 1 unit of hemoglobin today. AM LABS Chronic systolic CHF A-fib, chronic HTN Continue Lopressor, Vasotec, hydralazine, cardiology following. Malnutrition with anorexia- Marinol initiated and will change diet to pured with honey thickened liquids, supplements given. Dietitian consultation Steroid induced Hyperglycemia Follow blood sugars Insulin sliding scale Levemir Early development of sacral decubitus stage Iwound care nurse consult and barrier cream to the area. DVT Prophylaxis Lovenox held due to thrombocytopenia Discharge Planning SNF is likely an option after ventriculostomy tube can be removed Avoid apixaban at discharge, per cardiology Code Status: FULL CODE Discussed Condition With: RN AND PT NEED POTASSIUM REPLACED AGAIN Discharge Planning: ONCE CLEARED BY ID AND EVD IS OUT
[2017-11-06] MEDS: Potassium Chlor 20 mEq Premix 20 MEQ/100 ML PIGGYBACK IV.SIG SCH ×4 (11:27→23:15)
[2017-11-06] MEDS: Metoprolol Tartrate 50 MG Tablet PO SCH ×2 (11:27→23:14)
--- NOTE | 2017-11-06 13:02 | P.PNID ---
Subjective Remarks: ID Interim progress/ events reviewed Pt cont to receive Intrathecal AMB November 03 sp ventric changed to contralateral side no fever Pt's Overnight events reviewed with RN s/p removal of old ventric and placement of new ventric. November 03 clx are neg on G stain and no growth @ 72 hrs No seizures. No fever No rash No new issues denies headaches today. No Nausea or vomiting, denies visual or hearing changes. Follows commands and talks,smiles New cytopenias: plt s down to 30s and WBC down to 2.2 Antibiotics: IV AMpho Intrathecal Ampho plus solumedrol IT. Last November 03 Fluconazole IV Lines: Lines ok Past Medical History: atrial flutter systolic heart failure likely chronic ejection fraction 25%, hypertension, hyperlipidemia bladder cancer status post removal with chemoradiation therapy 2016. ablation bladder surgery 2 yrs ago Allergies/Adverse Reactions: Allergies No Known Allergies Allergy (Unknown, Uncoded 07/08/17 00:15) Objective Vital Signs 11/05/17 14:00 11/05/17 16:00 11/05/17 18:00 Temperature 97.7 F Pulse Rate 77 80 82 Respiratory Rate 20 Blood Pressure 113/69 Pulse Oximetry 91 L 11/05/17 19:54 11/05/17 20:00 11/05/17 22:00 Temperature 98.0 F Pulse Rate 80 88 Respiratory Rate 26 H Blood Pressure 113/74 Pulse Oximetry 93 L 93 L 11/06/17 00:00 11/06/17 02:00 11/06/17 04:00 Temperature 98.2 F 98.5 F Pulse Rate 68 68 67 Respiratory Rate 24 26 H Blood Pressure 123/78 123/77 Pulse Oximetry 93 L 93 L 11/06/17 06:00 11/06/17 08:00 11/06/17 08:36 Temperature 98.1 F Pulse Rate 69 72 Respiratory Rate 26 H Blood Pressure 101/67 Pulse Oximetry 91 L 92 L 11/06/17 09:26 11/06/17 10:00 11/06/17 10:15 Temperature 98.7 F 98.7 F Pulse Rate 85 85 Respiratory Rate 28 H 28 H 29 H Blood Pressure 120/74 111/68 Pulse Oximetry 94 L 94 L 11/06/17 11:45 11/06/17 12:00 Temperature 97.1 F L 98.1 F Pulse Rate 85 90 Respiratory Rate 27 H 23 Blood Pressure 107/67 118/78 Pulse Oximetry 95 96 Intake & Output 11/05/17 11/06/17 11/06/17 18:59 06:59 18:59 Intake Total 720 / 720 960 / 960 230 / 230 Output Total 1000 / 1000 705 / 705 Balance -280 / -280 255 / 255 230 / 230 Weight 89 kg Intake: IV 320 / 320 720 / 720 Ambisome Inj 481.5 MG In D5W 320 / 320 320 / 320 Inj 320 ML @ 125 mls/hr IV.SIG Q24H KATHERINE Rx#:[id number] Diflucan 400 mg Premix Bag 400 400 / 400 ML @ 100 mls/hr IV.SIG Q24H KATHERINE Rx#:[id number] Oral 400 / 400 240 / 240 Intake (Blood Product) Amt 230 / 230 Prepooled Plts Leukoreduced 5d 230 / 230 Unit [id number] Output: Urine Amount (Catheter) 1000 / 1000 700 / 700 Condom 1000 / 1000 700 / 700 Intracranial Drainage 5 / 5 Left Temporoparietal 5 / 5 Other: Date of Last Bowel Movement 10/30/17 10/30/17 10/30/17 # Bowel Movements 0 11/03/17 11:30 Shunt Fluid Gram Stain - Final 11/03/17 11:30 Shunt Fluid CSF Culture - Final No growth in 72 hours (aerobically and anaerobically ) 11/03/17 11:30 Cerebral Spinal Fluid - Shunt Fluid Fungal Smear - Final No fungal elements seen 11/03/17 11:30 Cerebral Spinal Fluid - Shunt Fluid Fungal Culture - Pending Lab - Hematology Results 11/06/17 06:46 WBC 2.0 L RBC 3.09 L Hgb 9.1 L Hct 27.2 L MCV 88.2 MCH 29.4 MCHC 33.3 RDW 19.2 H Plt Count 32 L MPV 9.4 Prelim Diff (Auto) Manual diff required WBC Differential Manual diff final Seg Neuts % (Manual) 76 H Band Neuts % (Manual) 10 H Lymphocytes % (Manual) 9 Monocytes % (Manual) 2 Myelocytes % (Man) 3 H Abs Neuts (Manual) 1.8 Nucleated RBCs/100 WBC 8 H Differential Comment . Platelet Estimate Low L Platelet Morphology Normal Ovalocytes 1+ H Lab - Chemistry Results 07/14/18 07/15/18 07/15/18 21:34 01:07 06:25 Sodium Potassium Chloride Carbon Dioxide Anion Gap BUN Creatinine Estimated GFR POC Glucose 204 H 246 H 195 H Random Glucose Calcium Phosphorus Magnesium Total Bilirubin AST ALT Alkaline Phosphatase Total Protein Albumin 11/05/17 11/06/17 11/06/17 23:51 06:06 06:46 Sodium 152 H Potassium 2.4 L* Chloride 116 H Carbon Dioxide 24.7 Anion Gap 11 BUN 46 H Creatinine 0.64 Estimated GFR Greater than 89 POC Glucose 268 H 176 H Random Glucose 151 H Calcium 8.3 L Phosphorus 3.2 Magnesium 1.8 Total Bilirubin 1.3 H AST 29 ALT 76 Alkaline Phosphatase 124 H Total Protein 5.4 L D Albumin 2.0 L 11/06/17 11:40 Sodium Potassium Chloride Carbon Dioxide Anion Gap BUN Creatinine Estimated GFR POC Glucose 301 H Random Glucose Calcium Phosphorus Magnesium Total Bilirubin AST ALT Alkaline Phosphatase Total Protein Albumin Imaging: ITS Impressions Chest X-Ray 10/23/17 00:00 CONCLUSION: The lungs are clear. Head CT 10/26/17 00:00 CONCLUSION: Slight interval increase in size of hemorrhage in the left paramedian posterior fossa. Liver Ultrasound 10/27/17 00:00 CONCLUSION: 1. Simple right renal cyst. 2. Otherwise normal examination of the abdomen. Physical Exam: Physical Exam CONSTITUTIONAL/GENERAL: Keeps eyes closed, but he follows commands. He answers all questions approprietly, in no apparent distress. SKIN: No jaundice, rashes, or lesions. Warm and dry HEAD: Ventric in place with cloudy blood-tinged CSF . R parietal incision clean Ventric is now on the L side EYES: Extraocular motions intact. No scleral icterus. No injection or drainage. Fundi not examined. ENT: Nose without bleeding or purulent drainage. Moist mucosa CARDIOVASCULAR: Regular rate and rhythm without murmurs, gallops, or rubs. RESPIRATORY/CHEST: Symmetric, unlabored respirations. Clear to auscultation. Breath sounds equal bilaterally. No wheezes, rales, or rhonchi. GASTROINTESTINAL: Abdomen soft, non-tender, nondistended. No guarding. Bowel sounds present. Has an umbilical hernia GENITOURINARY: Without palpable bladder distension MUSCULOSKELETAL: Extremities without clubbing, cyanosis, or edema.. No calf tenderness. No mottling or clubbing. NEUROLOGICAL: lethargic, but easily aousable follows commands. Normal speech. 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 PSYCHIATRIC: Cooperative LINE: No evidence of infection Assessment and Plan (1) Infection by Lisa species Status: Acute Code(s): B37.9 - Candidiasis, unspecified (2) Cerebral ventriculitis Status: Acute Code(s): G04.90 - Encephalitis and encephalomyelitis, unspecified (3) Metastatic urothelial carcinoma Status: Chronic Code(s): C79.10 - Secondary malignant neoplasm of unspecified urinary organs (4) History of bladder cancer Status: Chronic Code(s): Z85.51 - Personal history of malignant neoplasm of bladder - Plan IMPRESSION Bladder cancer, metastatic with brain mets per oncology notes: metastatic urothelial carcinoma. He has had a brain mass with pathology showing metastatic non-small cell carcinoma. S/P neurosurgical procedure C albicans ventriculitis Serratia, PSAE PNA Serratia bacteremia : source is likley PNA line (PICC), vs PNA vs surgical site infection sp 1 week of treatment Thrombocytopenia - likley med side effect Leukopenia - likley med side effect PLAN Continue Ampho B Intrathecal cont dosing on Monday, Mon, Monday untill 3 negaive CSF specumen obtained 1. Solumedrol (Methylprednisone) Intrathecal 2. Intrathecal Ampho plus Intrathecal Solumedrol combo syringe. Continue IV ampho B - call placed to [facility] in pharmacy to send today's dose Continue Diflucan IV. azida RN fluid collected today and sent to micro/lab. Also Ampho Intrathecal given Monitor progress. zaida RN reconsult hem onc for cytopenia
--- NOTE | 2017-11-06 13:46 | P.PNONC ---
Subjective Interval history: Afebrile. Patient sitting upright in chair. Answers questions with head nods and occasional 2 word phrases. He is in no acute distress. Objective Vital Signs/Intake & Output: Vital Signs 11/05/17 14:00 11/05/17 16:00 11/05/17 18:00 Temperature 97.7 F Pulse Rate 77 80 82 Respiratory Rate 20 Blood Pressure 113/69 Pulse Oximetry 91 L 11/05/17 19:54 11/05/17 20:00 11/05/17 22:00 Temperature 98.0 F Pulse Rate 80 88 Respiratory Rate 26 H Blood Pressure 113/74 Pulse Oximetry 93 L 93 L 11/06/17 00:00 11/06/17 02:00 11/06/17 04:00 Temperature 98.2 F 98.5 F Pulse Rate 68 68 67 Respiratory Rate 24 26 H Blood Pressure 123/78 123/77 Pulse Oximetry 93 L 93 L 11/06/17 06:00 11/06/17 08:00 11/06/17 08:36 Temperature 98.1 F Pulse Rate 69 72 Respiratory Rate 26 H Blood Pressure 101/67 Pulse Oximetry 91 L 92 L 11/06/17 09:26 11/06/17 10:00 11/06/17 10:15 Temperature 98.7 F 98.7 F Pulse Rate 85 85 Respiratory Rate 28 H 28 H 29 H Blood Pressure 120/74 111/68 Pulse Oximetry 94 L 94 L 11/06/17 11:45 11/06/17 12:00 Temperature 97.1 F L 98.1 F Pulse Rate 85 90 Respiratory Rate 27 H 23 Blood Pressure 107/67 118/78 Pulse Oximetry 95 96 Intake & Output 11/05/17 11/06/17 11/06/17 18:59 06:59 18:59 Intake Total 720 / 720 960 / 960 230 / 230 Output Total 1000 / 1000 705 / 705 Balance -280 / -280 255 / 255 230 / 230 Weight 89 kg Intake: IV 320 / 320 720 / 720 Ambisome Inj 481.5 MG In D5W 320 / 320 320 / 320 Inj 320 ML @ 125 mls/hr IV.SIG Q24H KATHERINE Rx#:[id number] Diflucan 400 mg Premix Bag 400 400 / 400 ML @ 100 mls/hr IV.SIG Q24H KATHERINE Rx#:[id number] Oral 400 / 400 240 / 240 Intake (Blood Product) Amt 230 / 230 Prepooled Plts Leukoreduced 5d 230 / 230 Unit [id number] Output: Urine Amount (Catheter) 1000 / 1000 700 / 700 Condom 1000 / 1000 700 / 700 Intracranial Drainage 5 / 5 Left Temporoparietal 5 / 5 Other: Date of Last Bowel Movement 10/30/17 10/30/17 10/30/17 # Bowel Movements 0 Result Diagrams: 11/06/17 06:46 11/06/17 06:46 Laboratory Results: Laboratory Results - last 24 hr 11/05/17 11/06/17 11/06/17 23:51 06:06 06:46 WBC 2.0 L RBC 3.09 L Hgb 9.1 L Hct 27.2 L MCV 88.2 MCH 29.4 MCHC 33.3 RDW 19.2 H Plt Count 32 L MPV 9.4 Prelim Diff (Auto) Manual diff required WBC Differential Manual diff final Seg Neuts % (Manual) 76 H Band Neuts % (Manual) 10 H Lymphocytes % (Manual) 9 Monocytes % (Manual) 2 Myelocytes % (Man) 3 H Abs Neuts (Manual) 1.8 Nucleated RBCs/100 WBC 8 H Differential Comment . Platelet Estimate Low L Platelet Morphology Normal Ovalocytes 1+ H Sodium Potassium Chloride Carbon Dioxide Anion Gap BUN Creatinine Estimated GFR POC Glucose 268 H 176 H Random Glucose Calcium Phosphorus Magnesium Total Bilirubin AST ALT Alkaline Phosphatase Total Protein Albumin Bld Prod Order Comment 11/06/17 11/06/17 11/06/17 06:46 07:59 11:40 WBC RBC Hgb Hct MCV MCH MCHC RDW Plt Count MPV Prelim Diff (Auto) WBC Differential Seg Neuts % (Manual) Band Neuts % (Manual) Lymphocytes % (Manual) Monocytes % (Manual) Myelocytes % (Man) Abs Neuts (Manual) Nucleated RBCs/100 WBC Differential Comment Platelet Estimate Platelet Morphology Ovalocytes Sodium 152 H Potassium 2.4 L* Chloride 116 H Carbon Dioxide 24.7 Anion Gap 11 BUN 46 H Creatinine 0.64 Estimated GFR Greater than 89 POC Glucose 301 H Random Glucose 151 H Calcium 8.3 L Phosphorus 3.2 Magnesium 1.8 Total Bilirubin 1.3 H AST 29 ALT 76 Alkaline Phosphatase 124 H Total Protein 5.4 L D Albumin 2.0 L Bld Prod Order Comment Culture Results: Microbiology 11/03/17 11:30 Gram Stain - Final Shunt Fluid CSF Culture - Final No growth in 72 hours (aerobically and anaerobically) 11/03/17 11:30 Fungal Smear - Final Cerebral Spinal Fluid - Shunt Fluid No fungal elements seen Medications: Active Medications Generic Name Dose Route Start Last Admin Trade Name Freq PRN Reason Stop Dose Admin Acetaminophen 650 mg 10/22/17 00:00 10/31/17 11:59 Tylenol PO 650 mg Q4H PRN Administration TEMP >101.5 Hydrocodone Bitart/Acetaminophen 1 tab 10/22/17 00:01 11/06/17 09:26 [place]ays 10/325 PO 1 tab Q4H PRN Administration PAIN SCALE 1-5 Hydrocodone Bitart/Acetaminophen 2 tab 10/22/17 00:00 10/28/17 21:43 [place] 10/325 PO 2 tab Q4H PRN Administration PAIN 6-10 Al Hydroxide/Mg Hydroxide 30 ml 10/22/17 06:00 11/06/17 05:39 Milk Of Magnesia Liq PO 30 ml Q12H KATHERINE Administration Artificial Tears 1 drop 10/22/17 06:00 11/06/17 13:30 Tears Naturale Opth Drops EACH EYE 1 drop Q8HR KATHERINE Administration Citalopram Hydrobromide 10 mg 10/30/17 09:15 11/06/17 08:17 Celexa PO 10 mg DAILY KATHERINE Administration Dexamethasone Sodium Phosphate 3 mg 10/22/17 00:00 11/06/17 11:51 Decadron Inj IV.PUSH 3 mg Q6HR KATHERINE Administration Diphenhydramine HCl 25 mg 10/22/17 22:30 11/05/17 22:23 Benadryl Inj IV.PUSH 25 mg Q24H KATHERINE Administration Dronabinol 5 mg 11/05/17 16:00 11/06/17 11:51 Marinol PO 5 mg BID@1100,1600 KATHERINE Administration Enalapril Maleate 5 mg 10/22/17 00:00 11/06/17 11:54 Vasotec PO Not Given Q12H KATHERINE Fluconazole 400 mls @ 100 mls/hr 10/23/17 17:00 11/05/17 21:57 Diflucan 400 Mg Premix Bag IV.SIG Infused Q24H KATHERINE Infusion Amphotericin B 481.5 mg/ 320 mls @ 125 mls/hr 10/22/17 23:00 11/06/17 01:13 Dextrose IV.SIG Infused Q24H KATHERINE Infusion Potassium Chloride 20 meq in 100 mls @ 50 mls/hr 11/03/17 20:22 11/04/17 07: 51 Kcl 20 Meq Premix Inj IV.SIG 50 mls/hr Q2H PRN Administration For Potassium 3.3 - 3.5 mEq/L Sodium Chloride 250 mls @ 15 mls/hr 11/06/17 08:00 11/06/17 11:27 Ns Inj IV.SIG 11/07/17 00:39 Not Given ONCE KATHERINE Potassium Chloride 20 meq in 100 mls @ 50 mls/hr 11/06/17 10:45 11/06/17 13: 30 Kcl 20 Meq Premix Inj IV.SIG 11/07/17 06:44 50 mls/hr Q2H KATHERINE Administration Methylprednisolone Sodium 0.925 mls @ 0 mls/hr 10/23/17 07:00 11/03/17 19:00 Succinate 5 mg/ Dextrose 0.8 IT Infused ml/ Syringe/Bag MoWeFr KATHERINE Infusion As Directed Methylprednisolone Sodium 3.925 mls @ 0 mls/hr 10/23/17 07:00 11/03/17 19:00 Succinate 5 mg/ Dextrose 3.8 IT Infused ml/ Amphotericin B 0.1 mg/ MoWeFr KATHERINE Infusion Syringe/Bag As Directed Insulin Detemir 6 unit 10/27/17 21:00 11/05/17 21:21 Levemir Inj SQ 6 unit HS KATHERINE Administration Insulin Human Regular 0 units 10/22/17 14:00 11/06/17 11:53 Novolin R Supplemental Scale SQ 10 units Q6HR KATHERINE Administration Protocol Lactulose 30 ml 10/22/17 09:00 11/03/17 09:23 Lactulose Liq PO 30 ml TID KATHERINE Administration Levetiracetam 500 mg 10/22/17 09:00 11/06/17 08:17 Keppra PO 500 mg Q12HR KATHERINE Administration Magnesium Oxide 800 mg 10/22/17 00:01 11/01/17 09:18 Mag-Ox PO 800 mg UNSCH PRN Administration For Magnesium 1.2 - 1.6 mg/dL Metoprolol Tartrate 50 mg 10/22/17 09:00 11/06/17 11:27 Lopressor PO Not Given Q12H KATHERINE Mirtazapine 15 mg 10/22/17 21:00 11/05/17 21:22 Remeron PO 15 mg HS KATHERINE Administration Pantoprazole Sodium 40 mg 10/22/17 09:00 11/06/17 08:18 Protonix Inj IV.PUSH 40 mg DAILY KATHERINE Administration Pantoprazole Sodium 40 mg 10/22/17 09:00 11/06/17 08:18 Protonix PO Not Given DAILY KATHERINE Potassium Bicarb/Potassium Chloride 50 meq 10/27/17 14:40 10/31/17 08:16 K-Lyte Cl Eff PO 50 meq UNSCH PRN Administration For Potassium 3.3 - 3.5 mEq/L Potassium Bicarb/Potassium Chloride 25 meq 11/01/17 21:00 11/06/17 08:17 K-Lyte Cl Eff PO 25 meq BID KATHERINE Administration Potassium Phosphate 2,000 mg 10/22/17 00:00 11/04/17 17:41 K-Phos Original PO 2,000 mg Q4H PRN Administration Phosphorus Less Than 2.5 mg/dL Potassium Phosphate 2,000 mg 10/22/17 00:01 10/26/17 08:30 K-Phos Original PO 2,000 mg UNSCH PRN Administration SEE LABEL COMMENTS Senna/Docusate Sodium 2 tab 10/22/17 09:00 11/06/17 08:18 Dari-Colace PO 2 tab BID KATHERINE Administration Sodium Chloride 2 ml 10/22/17 09:00 11/06/17 08:17 Ns Flush IV.FLUSH 2 ml BID KATHERINE Administration Sodium Chloride 2 ml 10/22/17 00:00 11/03/17 22:28 Ns Flush IV.FLUSH 2 ml UNSCH PRN Administration FLUSH AFTER IV ACCESS Sodium Chloride 1 gm 10/22/17 09:00 11/02/17 12:17 Sodium Chloride PO 1 gm TID KATHERINE Administration Objective Remarks: GENERAL: Lethargic, middle-aged male sitting in chair, in no acute distress. SKIN: Warm and dry. HEAD: Ventriculostomy to left side of scalp. Dressing covering scalp. No oozing noted. EYES: No injection or drainage. NECK: Supple, trachea midline. CARDIOVASCULAR: Regular rate and rhythm without murmurs. RESPIRATORY: Anterior breath sounds equal bilaterally. No accessory muscle use. Occasional cough. GASTROINTESTINAL: Abdomen soft, non-tender, nondistended. EXTREMITIES: No cyanosis, or edema. MUSCULOSKELETAL: Adequate muscle tone. NEUROLOGICAL: Lethargic. Follows commands. PSYCHIATRIC: Unable to evaluate. He is answering questions with head nods and 1 or 2 word answers. Assessment/Plan (1) Metastatic urothelial carcinoma Code(s): C79.10 - Secondary malignant neoplasm of unspecified urinary organs Status: Chronic (2) Cerebral ventriculitis Code(s): G04.90 - Encephalitis and encephalomyelitis, unspecified Status: Acute - Plan 52y/o male with metastatic urothelial carcinoma. He has had a brain mass with pathology showing metastatic non-small cell carcinoma. He is positive for Lisa infection in cerebrospinal fluid. Infectious disease is following. Hematology re-consulted for thrombocytopenia. 1. Platelet count 32,000 today. We will transfuse 1 unit of platelets today. Our goal is to keep platelets ideally around 50,000. Transfuse 1 unit platelets today for platelet count of 32,000. Ideally would like to keep platelets around 50,000. 2. Pancytopenia due to infection/medication side effect. We will continue to monitor and treat accordingly. - Attending Statement The exam, history, and the medical decision-making described in the above note were completed with the assistance of the mid-level provider. I reviewed and agree with the findings presented. I attest that I had a [id number] encounter with the patient on the same day, and personally performed and documented my assessment and findings in the medical record. Pt is sleeping. No bleeding. Pt is on ampho and diflucan for fungus infectio.Reconsulted for pancytopenia by DR Gibbons. Both antifungal are listed as MAJOR ADVERSE reactions to cause pacytopenia. Check B12, folate and iron. Keep plat >50K amd ANC >1,000 plart tx today. ANC .1500 d/w Edwige.
--- NOTE | 2017-11-06 14:17 | P.PNWCN ---
Wound Care Nurse Consult Description: Wound consult ordered by for wound management of sacrum Communicated with: Ann OROZCO Additional information: Machine Coremaker attempted to see patient @ [phone] patient was up in therapy chair so communications writer was unable to assess.Ann OROZCO to contact wound nurse when patient transferred back into bed .no wound assessment noted for sacrum. Wound/Pressure Injury - Wound Posterior Occipital Drainage Description: Serous Incision - Incision Posterior Head Other Cover Dressing: PRIMAPORE
[2017-11-06 18:05] LABS: % Iron Saturation 17.4 % (20-50); Folate 8.7 ng/mL (3.1-17.5)
[2017-11-06] MEDS: WATER IT SCH ×3 (18:16)
[2017-11-06] MEDS: DEXTROSE 5% IT SCH ×3 (18:16)
[2017-11-06] MEDS: METHYLPREDNISOLONE SOD SUC IT SCH ×3 (18:16)
[2017-11-06] MEDS: [UNRECOGNIZED DRUG - OTHER] IT SCH ×2 (18:16)
[2017-11-06] MEDS: [UNRECOGNIZED DRUG - OTHER] IT SCH (18:16)
--- NOTE | 2017-11-06 19:20 | P.PNNS ---
Subjective Interval history: 11/06: doing well, sat up in chair for 4 hours. Physical Exam Vital signs: Vital Signs 11/05/17 19:54 11/05/17 20:00 11/05/17 22:00 Temperature 98.0 F Pulse Rate 80 88 Respiratory Rate 26 H Blood Pressure 113/74 Pulse Oximetry 93 L 93 L 11/06/17 00:00 11/06/17 02:00 11/06/17 04:00 Temperature 98.2 F 98.5 F Pulse Rate 68 68 67 Respiratory Rate 24 26 H Blood Pressure 123/78 123/77 Pulse Oximetry 93 L 93 L 11/06/17 06:00 11/06/17 08:00 11/06/17 08:36 Temperature 98.1 F Pulse Rate 69 72 Respiratory Rate 26 H Blood Pressure 101/67 Pulse Oximetry 91 L 92 L 11/06/17 09:26 11/06/17 10:00 11/06/17 10:15 Temperature 98.7 F 98.7 F Pulse Rate 85 85 Respiratory Rate 28 H 28 H 29 H Blood Pressure 120/74 111/68 Pulse Oximetry 94 L 94 L 11/06/17 11:45 11/06/17 12:00 11/06/17 14:00 Temperature 97.1 F L 98.1 F Pulse Rate 85 90 75 Respiratory Rate 27 H 23 Blood Pressure 107/67 118/78 Pulse Oximetry 95 96 11/06/17 16:00 11/06/17 18:00 Temperature 98.1 F Pulse Rate 83 95 H Respiratory Rate 20 Blood Pressure 116/71 Pulse Oximetry 94 L Intake & Output 11/06/17 11/06/17 11/07/17 06:59 18:59 06:59 Intake Total 960 / 960 780.925 / 780.925 Output Total 705 / 705 1090 / 1090 Balance 255 / 255 -309.075 / -309.075 Weight 89 kg Intake: IV 720 / 720 100.925 / 100.925 SoluMEDROL Inj 5 MG D5W Inj 0.8 0.925 / 0.925 ML In Bag/Syringe 1 EACH @ As Directed IT MoWeFr KATHERINE Rx#: [id number] Ambisome Inj 481.5 MG In D5W 320 / 320 Inj 320 ML @ 125 mls/hr IV.SIG Q24H KATHERINE Rx#:[id number] Diflucan 400 mg Premix Bag 400 400 / 400 ML @ 100 mls/hr IV.SIG Q24H KATHERINE Rx#:[id number] KCl 20 mEq Premix Inj 20 meq In 100 / 100 100 ml @ 50 mls/hr IV.SIG Q2H KATHERINE Rx#:[id number] Oral 240 / 240 450 / 450 Intake (Blood Product) Amt 230 / 230 Prepooled Plts Leukoreduced 5d 230 / 230 Unit [id number] Output: Stool 0 / 0 Estimated Blood Loss Urine Amount (Catheter) 700 / 700 1000 / 1000 Condom 700 / 700 1000 / 1000 Intracranial Drainage Left Temporoparietal Other: Date of Last Bowel Movement 10/30/17 10/30/17 # Bowel Movements 0 Narrative: Ventriculostomy draining well, dark red CSF. Awake, alert. stable left side weakness. - Urinary Catheter Management Condom Cath placed during this visit: yes Reason for continuing: Hourly intake/output Insertion date: 10/30/17 Insertion time: 13:34 CATHETER Cath placed during this visit: yes Reason for continuing: Other continuation reason Insertion date: 10/30/17 Assessment and Plan - Assessment (1) Cerebral ventriculitis Code(s): G04.90 - Encephalitis and encephalomyelitis, unspecified Status: Acute (2) Metastatic urothelial carcinoma Code(s): C79.10 - Secondary malignant neoplasm of unspecified urinary organs Status: Chronic - Plan new CSF cultures obtained via ventriculostomy drain intrathecal ampho b + methylprednisolone administered, pt tolerate procedure well
[2017-11-06 20:13] LABS: Monocytes,CSF 1 %; Neutrophils,CSF 99 %
[2017-11-06 20:15] LABS: RBC on Tube 1 17533 /mm3
[2017-11-06] MEDS ORDERED: Phenol 1.4% 180 ML Spray Bottle OROPHARYNG PRN (20:15)
[2017-11-06] MEDS: Mirtazapine 15 MG Tablet PO SCH (23:15)
[2017-11-06] MEDS: Insulin Detemir Inj 1,000 UNIT/10 ML Vial SQ SCH (23:15)
[2017-11-06] MEDS: AMPHOTERICIN B LIPOSOMAL IV.SIG SCH ×2 (23:42)
[2017-11-06] MEDS: WATER IV.SIG SCH ×2 (23:42)
[2017-11-06] MEDS: DEXTROSE 5% IV.SIG SCH ×2 (23:42)
[2017-11-07] MEDS: Potassium Chlor 20 mEq Premix 20 MEQ/100 ML PIGGYBACK IV.SIG SCH ×6 (02:24→23:13)
[2017-11-07] MEDS: Artificial Tears Opth Drops 15 ML Bottle EACH EYE SCH ×3 (06:56→21:58)
[2017-11-07 07:23] LABS: Hematocrit 24.5 % (39.0-51.0); Hemoglobin 8.1 gm/dL (13.0-17.0); Mean Corpuscular HGB Conc 33.2 % (32.0-36.0); Mean Corpuscular Hemoglobin 29.5 pg (27.0-34.0); Mean Corpuscular Volume 88.8 fL (80.0-100.0); Mean Platelet Volume 9.8 fL (7.0-11.0); Platelet Count 31 th/mm3 (150-450); Red Blood Count 2.76 mil/mm3 (4.50-5.90); Red Cell Distribution Width 19.4 % (11.6-17.2); White Blood Count 1.5 th/mm3 (4.0-11.0)
[2017-11-07 07:57] LABS: Alanine Aminotransferase 66 U/L (12-78); Albumin 1.8 g/dL (3.4-5.0); Anion Gap 11 meq/L (5-15); Aspartate Aminotransferase 23 U/L (15-37); Blood Urea Nitrogen 41 mg/dL (7-18); Carbon Dioxide 22.6 meq/L (21.0-32.0); Chloride 120 meq/L (98-107); Glomerular Filtration Rate Greater Than 89 mL/min (>89); Glucose,Random 188 mg/dL (74-106); Magnesium 1.8 mg/dL (1.5-2.5); Phosphorus 2.9 mg/dL (2.5-4.9); Potassium 3.3 meq/L (3.5-5.1); Sodium 154 meq/L (136-145)
[2017-11-07 07:58] LABS: Alkaline Phosphatase 111 U/L (45-117)
[2017-11-07 08:22] LABS: Lymphocytes 9 % (9-44); Metamyelocytes 1 % (0-1); Monocytes 1 % (0-8); Platelet Morphology Normal (Normal); Tallied Nucleated RBC 9 (0-0)
[2017-11-07] MEDS: Metoprolol Tartrate 50 MG Tablet PO SCH ×2 (08:52→21:57)
[2017-11-07] MEDS: levETIRAcetam 500 MG Tablet PO SCH ×2 (08:52→21:58)
[2017-11-07] MEDS: Senna/Docusate Sodium 8.6/50 MG Tablet PO SCH ×2 (08:52→21:57)
[2017-11-07] MEDS: Pantoprazole Inj 40 MG Vial IV.PUSH SCH (08:52)
[2017-11-07] MEDS: Potassium Chloride 25 MEQ Effervescent Tablet PO SCH ×2 (08:53→21:57)
[2017-11-07] MEDS: Citalopram 20 MG Tablet PO SCH (08:53)
[2017-11-07] MEDS: Insulin NovoLIN Regular Correctional Sugar Inj SQ SCH ×3 (09:09→17:58)
--- NOTE | 2017-11-07 10:50 | P.PNONC ---
Subjective Interval history: Afebrile Patient resting in bed with eyes closed. 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 Unable to swallow No obvious bleeding Objective Vital Signs/Intake & Output: Vital Signs 11/06/17 11:45 11/06/17 12:00 11/06/17 14:00 Temperature 97.1 F L 98.1 F Pulse Rate 85 90 75 Respiratory Rate 27 H 23 Blood Pressure 107/67 118/78 Pulse Oximetry 95 96 11/06/17 16:00 11/06/17 18:00 11/06/17 19:56 Temperature 98.1 F Pulse Rate 83 95 H Respiratory Rate 20 Blood Pressure 116/71 Pulse Oximetry 94 L 93 L 11/06/17 20:00 11/06/17 22:00 11/07/17 00:00 Temperature 97.9 F 97.9 F Pulse Rate 93 H 85 98 H Respiratory Rate 30 H 26 H Blood Pressure 117/76 114/76 Pulse Oximetry 92 L 95 11/07/17 02:00 11/07/17 02:24 11/07/17 04:00 Temperature 98 F Pulse Rate 78 69 Respiratory Rate 26 H 21 Blood Pressure 118/76 Pulse Oximetry 95 11/07/17 06:00 11/07/17 07:41 11/07/17 08:00 Temperature 97.6 F Pulse Rate 77 81 Respiratory Rate 20 Blood Pressure 128/77 Pulse Oximetry 95 93 L Intake & Output 11/06/17 11/07/17 11/07/17 18:59 06:59 18:59 Intake Total 780.925 / 780.925 550 / 550 100 / 100 Output Total 1090 / 1090 1333 / 1333 Balance -309.075 / -309.075 -783 / -783 100 / 100 Weight 200 lb 2.876 oz Intake: IV 100.925 / 100.925 300 / 300 100 / 100 SoluMEDROL Inj 5 MG D5W Inj 0.8 0.925 / 0.925 ML In Bag/Syringe 1 EACH @ As Directed IT MoWeFr KATHERINE Rx#: [id number] KCl 20 mEq Premix Inj 20 meq In 100 / 100 300 / 300 100 / 100 100 ml @ 50 mls/hr IV.SIG Q2H KATHERINE Rx#:[id number] Oral 450 / 450 250 / 250 Intake (Blood Product) Amt 230 / 230 Prepooled Plts Leukoreduced 5d 230 / 230 Unit [id number] Output: Stool 0 / 0 Estimated Blood Loss 5 / 5 Urine Amount (Catheter) 1000 / 1000 1200 / 1200 Condom 1000 / 1000 1200 / 1200 Wound Drainage 84 / 84 Right Occipital 84 / 84 Intracranial Drainage 85 / 85 49 / 49 Left Temporoparietal 85 / 85 49 / 49 Other: Date of Last Bowel Movement 10/30/17 10/30/17 10/30/17 # Bowel Movements 0 0 # Emeses 1 Result Diagrams: 11/07/17 06:47 11/07/17 11:00 Laboratory Results: Laboratory Results - last 24 hr 11/06/17 11/06/17 11/06/17 06:46 11:40 17:50 WBC RBC Hgb Hct MCV MCH MCHC RDW Plt Count MPV Prelim Diff (Auto) WBC Differential Seg Neuts % (Manual) Band Neuts % (Manual) Lymphocytes % (Manual) Monocytes % (Manual) Metamyelocytes % (Man) Abs Neuts (Manual) Nucleated RBCs/100 WBC Differential Comment Platelet Estimate Platelet Morphology Sodium Potassium Chloride Carbon Dioxide Anion Gap BUN Creatinine Estimated GFR POC Glucose 301 H Random Glucose Calcium Phosphorus Magnesium Iron 37 L TIBC 213 L % Saturation 17.4 L Ferritin 4525 H Total Bilirubin AST ALT Alkaline Phosphatase Total Protein Albumin Vitamin B12 519 Folate 8.7 CSF Volume (1) 7.0 CSF Supernat Color (1) Hemolyzed A CSF Gross Blood (1) 4+ A CSF WBC (1) 202 H CSF RBC (1) 24707 H CSF Neutrophils % 99 CSF Monocytes % 1 11/06/17 11/06/17 11/07/17 18:26 23:27 06:47 WBC 1.5 L RBC 2.76 L Hgb 8.1 L Hct 24.5 L MCV 88.8 MCH 29.5 MCHC 33.2 RDW 19.4 H Plt Count 31 L MPV 9.8 Prelim Diff (Auto) Manual diff required WBC Differential Manual diff final Seg Neuts % (Manual) 71 H Band Neuts % (Manual) 18 H Lymphocytes % (Manual) 9 Monocytes % (Manual) 1 Metamyelocytes % (Man) 1 Abs Neuts (Manual) 1.4 L Nucleated RBCs/100 WBC 9 H Differential Comment . Platelet Estimate Low L Platelet Morphology Normal Sodium Potassium Chloride Carbon Dioxide Anion Gap BUN Creatinine Estimated GFR POC Glucose 212 H 240 H Random Glucose Calcium Phosphorus Magnesium Iron TIBC % Saturation Ferritin Total Bilirubin AST ALT Alkaline Phosphatase Total Protein Albumin Vitamin B12 Folate CSF Volume (1) CSF Supernat Color (1) CSF Gross Blood (1) CSF WBC (1) CSF RBC (1) CSF Neutrophils % CSF Monocytes % 11/07/17 06:47 WBC RBC Hgb Hct MCV MCH MCHC RDW Plt Count MPV Prelim Diff (Auto) WBC Differential Seg Neuts % (Manual) Band Neuts % (Manual) Lymphocytes % (Manual) Monocytes % (Manual) Metamyelocytes % (Man) Abs Neuts (Manual) Nucleated RBCs/100 WBC Differential Comment Platelet Estimate Platelet Morphology Sodium 154 H Potassium 3.3 L D Chloride 120 H Carbon Dioxide 22.6 Anion Gap 11 BUN 41 H Creatinine 0.58 L Estimated GFR Greater than 89 POC Glucose Random Glucose 188 H Calcium 8.0 L Phosphorus 2.9 Magnesium 1.8 Iron TIBC % Saturation Ferritin Total Bilirubin 1.3 H AST 23 ALT 66 Alkaline Phosphatase 111 Total Protein 5.0 L Albumin 1.8 L Vitamin B12 Folate CSF Volume (1) CSF Supernat Color (1) CSF Gross Blood (1) CSF WBC (1) CSF RBC (1) CSF Neutrophils % CSF Monocytes % Culture Results: Microbiology 11/06/17 17:50 Gram Stain - Final Shunt Fluid CSF Culture - Preliminary No growth in 24 hours 10/30/17 Unknown Fungal Smear - Final Cerebral Spinal Fluid - Shunt Fluid No fungal elements seen Fungal Culture - Preliminary No growth in 1 week 11/03/17 11:30 Gram Stain - Final Shunt Fluid CSF Culture - Final No growth in 72 hours (aerobically and anaerobically) 11/03/17 11:30 Fungal Smear - Final Cerebral Spinal Fluid - Shunt Fluid No fungal elements seen Medications: Active Medications Generic Name Dose Route Start Last Admin Trade Name Freq PRN Reason Stop Dose Admin Acetaminophen 650 mg 10/22/17 00:00 10/31/17 11:59 Tylenol PO 650 mg Q4H PRN Administration TEMP >101.5 Hydrocodone Bitart/Acetaminophen 1 tab 10/22/17 00:01 11/07/17 02:24 [place] 10/325 PO 1 tab Q4H PRN Administration PAIN SCALE 1-5 Hydrocodone Bitart/Acetaminophen 2 tab 10/22/17 00:00 10/28/17 21:43 [place] 10/325 PO 2 tab Q4H PRN Administration PAIN 6-10 Al Hydroxide/Mg Hydroxide 30 ml 10/22/17 06:00 11/07/17 07:37 Milk Of Magnesia Liq PO 30 ml Q12H KATHERINE Administration Artificial Tears 1 drop 10/22/17 06:00 11/07/17 06:56 Tears Naturale Opth Drops EACH EYE 1 drop Q8HR KATHERINE Administration Citalopram Hydrobromide 10 mg 10/30/17 09:15 11/07/17 08:53 Celexa PO 10 mg DAILY KATHERINE Administration Dexamethasone Sodium Phosphate 3 mg 10/22/17 00:00 11/07/17 07:37 Decadron Inj IV.PUSH 3 mg Q6HR KATHERINE Administration Diphenhydramine HCl 25 mg 10/22/17 22:30 11/06/17 23:13 Benadryl Inj IV.PUSH 25 mg Q24H KATHERINE Administration Dronabinol 5 mg 11/05/17 16:00 11/07/17 09:55 Marinol PO Not Given BID@1100,1600 KATHERINE Enalapril Maleate 5 mg 10/22/17 00:00 11/07/17 06:57 Vasotec PO Not Given Q12H KATHERINE Fluconazole 400 mls @ 100 mls/hr 10/23/17 17:00 11/06/17 17:37 Diflucan 400 Mg Premix Bag IV.SIG 100 mls/hr Q24H KATHERINE Administration Amphotericin B 481.5 mg/ 320 mls @ 125 mls/hr 10/22/17 23:00 11/06/17 23:42 Dextrose IV.SIG 125 mls/hr Q24H KATHERINE Administration Potassium Chloride 20 meq in 100 mls @ 50 mls/hr 11/03/17 20:22 11/04/17 07: 51 Kcl 20 Meq Premix Inj IV.SIG 50 mls/hr Q2H PRN Administration For Potassium 3.3 - 3.5 mEq/L Methylprednisolone Sodium 0.925 mls @ 0 mls/hr 10/23/17 07:00 11/06/17 18:16 Succinate 5 mg/ Dextrose 0.8 IT Infused ml/ Syringe/Bag MoWeFr KATHERINE Infusion As Directed Methylprednisolone Sodium 3.925 mls @ 0 mls/hr 10/23/17 07:00 11/06/17 18:16 Succinate 5 mg/ Dextrose 3.8 IT 1 mls/hr ml/ Amphotericin B 0.1 mg/ MoWeFr KATHERINE Administration Syringe/Bag As Directed Insulin Detemir 6 unit 10/27/17 21:00 11/06/17 23:15 Levemir Inj SQ 6 unit HS KATHERINE Administration Insulin Human Regular 0 units 10/22/17 14:00 11/07/17 09:09 Novolin R Supplemental Scale SQ 2 units Q6HR KATHERINE Administration Protocol Lactulose 30 ml 10/22/17 09:00 11/03/17 09:23 Lactulose Liq PO 30 ml TID KATHERINE Administration Levetiracetam 500 mg 10/22/17 09:00 11/07/17 08:52 Keppra PO 500 mg Q12HR KATHERINE Administration Magnesium Oxide 800 mg 10/22/17 00:01 11/01/17 09:18 Mag-Ox PO 800 mg UNSCH PRN Administration For Magnesium 1.2 - 1.6 mg/dL Metoprolol Tartrate 50 mg 10/22/17 09:00 11/07/17 08:52 Lopressor PO 50 mg Q12H KATHERINE Administration Mirtazapine 15 mg 10/22/17 21:00 11/06/17 23:15 Remeron PO 15 mg HS KATHERINE Administration Ondansetron HCl 4 mg 10/22/17 00:00 11/06/17 23:14 Zofran Odt PO 4 mg Q6H PRN Administration NAUSEA/VOMITING Pantoprazole Sodium 40 mg 10/22/17 09:00 11/07/17 08:52 Protonix Inj IV.PUSH 40 mg DAILY KATHERINE Administration Pantoprazole Sodium 40 mg 10/22/17 09:00 11/07/17 08:52 Protonix PO 40 mg DAILY KATHERINE Administration Potassium Bicarb/Potassium Chloride 50 meq 10/27/17 14:40 10/31/17 08:16 K-Lyte Cl Eff PO 50 meq UNSCH PRN Administration For Potassium 3.3 - 3.5 mEq/L Potassium Bicarb/Potassium Chloride 25 meq 11/01/17 21:00 11/07/17 08:53 K-Lyte Cl Eff PO 25 meq BID KATHERINE Administration Potassium Phosphate 2,000 mg 10/22/17 00:00 11/04/17 17:41 K-Phos Original PO 2,000 mg Q4H PRN Administration Phosphorus Less Than 2.5 mg/dL Potassium Phosphate 2,000 mg 10/22/17 00:01 10/26/17 08:30 K-Phos Original PO 2,000 mg UNSCH PRN Administration SEE LABEL COMMENTS Senna/Docusate Sodium 2 tab 10/22/17 09:00 11/07/17 08:52 Dari-Colace PO 2 tab BID KATHERINE Administration Sodium Chloride 2 ml 10/22/17 09:00 11/07/17 08:52 Ns Flush IV.FLUSH 2 ml BID KATHERINE Administration Sodium Chloride 2 ml 10/22/17 00:00 11/03/17 22:28 Ns Flush IV.FLUSH 2 ml UNSCH PRN Administration FLUSH AFTER IV ACCESS Sodium Chloride 1 gm 10/22/17 09:00 11/02/17 12:17 Sodium Chloride PO 1 gm TID KATHERINE Administration Objective Remarks: GENERAL: Lethargic, middle-aged male resting in bed. He appears sallow and pale. SKIN: Warm and dry. Pale appearing HEAD: Normocephalic. Ventriculostomy to left side of scalp with dressing covering. No oozing noted. Bitemporal wasting noted. Xerostomia. EYES: No injection or drainage. NECK: Supple, trachea midline. CARDIOVASCULAR: Regular rate and rhythm without murmurs. RESPIRATORY: Clear but diminished anteriorly. On 4 L nasal cannula. GASTROINTESTINAL: Abdomen soft, non-tender, nondistended. EXTREMITIES: No cyanosis, or edema. MUSCULOSKELETAL: Generalized weakness NEUROLOGICAL: Lethargic. Follows commands. PSYCHIATRIC: Patient seems depressed. He is answering questions via 1 or 2 word answers Assessment/Plan (1) Metastatic urothelial carcinoma Code(s): C79.10 - Secondary malignant neoplasm of unspecified urinary organs Status: Chronic (2) Cerebral ventriculitis Code(s): G04.90 - Encephalitis and encephalomyelitis, unspecified Status: Acute - Plan 52y/o male with metastatic urothelial carcinoma. He has had a brain mass with pathology showing metastatic non-small cell carcinoma. He is positive for Lisa infection in cerebrospinal fluid. Infectious disease is following. Hematology re-consulted for thrombocytopenia. 1. Platelet count 31k today. We will transfuse 2 unit of platelets today. He received 1 unit platelets yesterday and count decreased. He has worsening pancytopenia. Recheck coags and fibrinogen today. 2. Pancytopenia due to infection/medication side effect. We will continue to monitor and treat accordingly. 3. Monitor for bleeding. - Attending Statement The exam, history, and the medical decision-making described in the above note were completed with the assistance of the mid-level provider. I reviewed and agree with the findings presented. I attest that I had a [id number] encounter with the patient on the same day, and personally performed and documented my assessment and findings in the medical record. lethargic SOB pancytopenuia is getting worst. This is due to antifungal meds which are serious adverse reaction. Dr Gibbons to address above. No B12 and folate def.
--- NOTE | 2017-11-07 10:55 | P.PNNS ---
Subjective Interval history: 11/07: no acute events overnight. Physical Exam Vital signs: Vital Signs 11/06/17 11:45 11/06/17 12:00 11/06/17 14:00 Temperature 97.1 F L 98.1 F Pulse Rate 85 90 75 Respiratory Rate 27 H 23 Blood Pressure 107/67 118/78 Pulse Oximetry 95 96 11/06/17 16:00 11/06/17 18:00 11/06/17 19:56 Temperature 98.1 F Pulse Rate 83 95 H Respiratory Rate 20 Blood Pressure 116/71 Pulse Oximetry 94 L 93 L 11/06/17 20:00 11/06/17 22:00 11/07/17 00:00 Temperature 97.9 F 97.9 F Pulse Rate 93 H 85 98 H Respiratory Rate 30 H 26 H Blood Pressure 117/76 114/76 Pulse Oximetry 92 L 95 11/07/17 02:00 11/07/17 02:24 11/07/17 04:00 Temperature 98 F Pulse Rate 78 69 Respiratory Rate 26 H 21 Blood Pressure 118/76 Pulse Oximetry 95 11/07/17 06:00 11/07/17 07:41 11/07/17 08:00 Temperature 97.6 F Pulse Rate 77 81 Respiratory Rate 20 Blood Pressure 128/77 Pulse Oximetry 95 93 L 11/07/17 10:00 Temperature Pulse Rate 74 Respiratory Rate Blood Pressure Pulse Oximetry Intake & Output 11/06/17 11/07/17 11/07/17 18:59 06:59 18:59 Intake Total 780.925 / 780.925 550 / 550 100 / 100 Output Total 1090 / 1090 1333 / 1333 Balance -309.075 / -309.075 -783 / -783 100 / 100 Weight 90.8 kg Intake: IV 100.925 / 100.925 300 / 300 100 / 100 SoluMEDROL Inj 5 MG D5W Inj 0.8 0.925 / 0.925 ML In Bag/Syringe 1 EACH @ As Directed IT MoWeFr KATHERINE Rx#: [id number] KCl 20 mEq Premix Inj 20 meq In 100 / 100 300 / 300 100 / 100 100 ml @ 50 mls/hr IV.SIG Q2H KATHERINE Rx#:[id number] Oral 450 / 450 250 / 250 Intake (Blood Product) Amt 230 / 230 Prepooled Plts Leukoreduced 5d 230 / 230 Unit [id number] Output: Stool 0 / 0 Estimated Blood Loss 5 / 5 Urine Amount (Catheter) 1000 / 1000 1200 / 1200 Condom 1000 / 1000 1200 / 1200 Wound Drainage 84 / 84 Right Occipital 84 / 84 Intracranial Drainage / 49 / 49 Left Temporoparietal 85 49 / 49 Other: Date of Last Bowel Movement 10/30/17 10/30/17 10/30/17 # Bowel Movements 0 0 # Emeses 1 Narrative: Ventriculostomy draining well, dark red CSF. Awake, alert. stable left side weakness. - Urinary Catheter Management Condom Cath placed during this visit: yes Reason for continuing: Hourly intake/output Insertion date: 10/30/17 Insertion time: 13:34 CATHETER Cath placed during this visit: yes Reason for continuing: Other continuation reason Insertion date: 10/30/17 Assessment and Plan - Assessment (1) Cerebral ventriculitis Code(s): G04.90 - Encephalitis and encephalomyelitis, unspecified Status: Acute (2) Metastatic urothelial carcinoma Code(s): C79.10 - Secondary malignant neoplasm of unspecified urinary organs Status: Chronic - Plan f/u repeat cultures, f/u CT Brain tomorrow am ID managing antibiotics
[2017-11-07] MEDS ORDERED: Sodium Chlor 0.9% Inj 250 ML IV.SIG SCH (11:00)
[2017-11-07 11:43] LABS: ABG Base Excess 1.4 mmol/L (-2-2); ABG PCO2 30 mmHg (38-42); ABG PO2 59 mmHg (61-120)
--- NOTE | 2017-11-07 11:58 | XR ---
EXAM DATE: 11/07/2017 11:47 AM EDT AGE/SEX: 52 years / Male INDICATIONS: . Short of breath. CLINICAL DATA: This is the patient's initial encounter. Patient reports that signs and symptoms have been present for 2 days and indicates a pain score of Nonresponsive. MEDICAL/SURGICAL HISTORY: . metastatic disease None. COMPARISON: [facility] – [place] 1V SINGLE AP, 10/23/2017. . FINDINGS: Left lower lobe airspace consolidation with some associated volume loss. Cardiomegaly mediastinal con tours are stable. Bony thorax is intact. CONCLUSION: 1. New left lower lobe airspace consolidation and associated volume loss. Electronically signed by: Emmanuel Wilder MD 11/07/2017 11:57 AM EDT
[2017-11-07 12:22] LABS: Activated Partial Thrombo Time 20.3 sec (24.3-30.1); INR 1.2 Ratio; Prothrombin Time 12.3 sec (9.8-11.6)
--- NOTE | 2017-11-07 14:33 | P.PNCC ---
Subjective Subjective Remarks/Hospital Course: 52-year-old male. Date of admission 09/11/2017. Past medical history includes atrial flutter status post ablation by Dr. Mantilla, systolic heart failure likely chronic ejection fraction 25%, hypertension, hyperlipidemia and history of bladder cancer status post removal with chemoradiation therapy 2015. 09/11, the patient presented to [facility] ED status post slip and fall outside his work earlier today. Patient hit the left side of his forehead above the left eye head and face and sustained a laceration over his left upper eyelid. Patient is on apixaban 5 mg twice daily. He went to see his primary care doctor at [place] and was asked to come to the emergency room instead. He was brought in by EMS from there. Patient is otherwise awake and answering questions appropriately. Vital signs are stable. No history of syncopal episode of vomiting. Patient says his last tetanus shot was in last couple years. Bleeding seems to have been controlled. Upon further evaluation, patient is cleaned of a headache with no vision changes with nausea and vomiting [address] of the head revealed a mass in the left posterior fossa. MRI brain relieved with a left cerebellar mass 4.4 cm with vasogenic edema. Midline. Dr. Horvath was notified by the ED and recommended ISC admission with dexamethasone 4 mg IV every 6 hours.. His laceration was sutured with 4.0 Ethicon by the ED physician. He is currently requesting his be notified of his admission 09/12: Resting in bed in no acute distress. Plan for bedside pulmonary function test and stress echocardiogram this afternoon. CT abdomen/pelvis revealed bilateral renal cysts, tiny right ureteral stones and periaortic lymphadenopathy up to 3.9 cm. Bilateral lower lobe 3 mm pulmonary nodules noted. Patient is awake alert no acute distress clinically stable. 09/13: Proceed to OR for evaluation of brain mass. Nuclear medicine scan revealed no reversible ischemia. Ejection fraction 40%. In good spirits. 09/14: Tolerated OR yesterday without complication. Excited to be consuming water at the present time. Pain controlled. No seizures noted. 09/15: Lying comfortably in bed no distress. CT of the head ordered for today. Ventriculostomy in place drained to 80 mL in 24 hours 09/16: Breathing comfortably. No complaints. BP up, will add PO hydralazine ( Reluctant to use beta vida with resting pulse 45.) 09/17: Lying in bed, comfortable. No acute distress. Ventriculostomy output less blood-tinged but appears slightly cloudy. Output 255 mL in 24 hours. Discussed with NAKUL Mercer about slightly cloudy CSF 09/18: Sitting up in bed eating breakfast no focal deficits. CSF culture sent yesterday appears slightly blood-tinged with very slight cloudiness. EVD output 198 mL in 24 hours. Raised to -10 09/19: EVD elevated and well tolerated. Bradycradia persists, no treatment necessary per cardiology. 09/20: Currently resting in bed in no acute distress. No ongoing issues. Ventriculostomy currently at -20 cm H2O. 175 cc reddish yellow. Opaque. Very small bowel movement today 09/21: Currently afebrile. Ventriculostomy is been clamped today. One bowel movement overnight. No complaints 09/22: Complains of headache overnight. Retro-orbit. No visual changes or hallucinations. Received narcotics overnight with some relief. CT brain pending. Noted that ventriculostomy was clamped overnight. 09/23: Afebrile. Noted some currently 128. Remains fatigued. Ventriculostomy removed. 09/24: Afebrile. Headache overnight 10 worsening. Dizziness noted. Started on nicardipine drip due to hypertension. Sodium 129-132 on 2% saline drip at 50 cc an hour. 09/25: Currently resting in bed in no acute distress. Status post reexploration of the posterior fossa craniectomy, evacuation of cerebellar clot, duraplasty with DuraGuard and DuraSeal, placement of epidural drain secondary to cerebellar hemorrhage. Remains sedated on propofol and fentanyl drips. Plan for CT brain exam.. 370 cc from SCOTT overnight SS 70 09/26: acutely hypoxemic this AM. no new pulmonary secretions. CXR unchanged. ordered CT pulmonary angiogram without evidence of PE. hypoxia improved spontaneously. somewhat positive fluid balance. CT brain with persistent edema and midline shift. 09/27: Afebrile. CT pulmonary revealed no pulmonary embolism. Remains sedated on propofol and fentanyl drips. Tube feeds at goal. 09/28: no changes. no improvements. remains deeply sedated per Dr. Horvath. 09/29: remains somewhat hypoxic on elevated fio2. lungs clear to auscultation without wheezing. CXR without overt cause. may be generalized volume overload: will start to diurese. repeat head CT with improving edema. per nsgy: cleared to wean sedation. 09/30: CSF leak from base of skull. nsgy placed EVD to decompress overnight. still needs diuresis. following commands. 10/01: no changes. still intermittently following commands. fio2 down to 40%. good diuresis overnight: will need to continue. CSF culture NGTD. 10/02: Afebrile. Following commands. Tiny emesis this a.m. Tube feeds back at goal rate. CSF culture no growth today. Urine culture with gram-negative lee ann. 10/03: ICP well controlled. Osmolality acceptable. 3% saline on hold. Urine not significant organisms, convert to ceftriaxone X 2 days. 10/04: Low grade fever persists. Continue ceftriaxone while awaiting cultures. Start 2% saline. 10/05: Reduce 2% saline, osmolality acceptable. 10/06: More alert today. Moves 4 limbs to command, tracks with eyes. Osmolality acceptably concentrated and blood pressure adequately controlled. 10/07: Extubated yesterday and continues to breathe comfortably. Protects airway. Afebrile, no leukocytosis. Chest x-ray has been clear aside from minor atelectasis. Sputum culture noted. Hold off treatment for now. Adjust antibiotics per ID service. 10/10: Patient had a CSF leak from previous posterior fossa craniectomy site. He went to the OR today and underwent bur hole with ventriculostomy placement by Dr. Horvath under general anesthesia, tolerated procedure well. Patient had a central line placed by anesthesia preoperatively and in view of concern regarding neurologic status was left intubated and transferred back to ICU and placed on mechanical ventilation. Critical care reconsulted by hospitalist service for vent management. I evaluated the patient following his arrival to the ICU. At that time he was drowsy though arousable, orally intubated on mechanical ventilation. History obtained by reviewing records and discussion with nursing staff. 10/11: remains intubated. CSF growing yeast, further ID to follow. discussed with Dr. Gibbons, and will need to empirically start fluconazole and Ampho B empirically until further speciation is resulted. 10/12: Extubated 10/11. Following commands. Knows he is at the hospital. Knows it is 2017. Ventriculostomy continues to drain. Critical Care reconsult note 11/07/2017. Critical care medicine was reconsulted today for acute deterioration in respiratory status. Patient's history was reviewed as above. Patient increasingly short of breath tachypneic since a.m. a chest x-ray showed left lower lobe pneumonia. On vent mask patient continued to desaturate, ABG 7.52/30 /59. Patient was placed on 100% nonrebreather. I immediately evaluated the patient is severely tachypneic breathing about 40 breaths per minute using accessory muscles. He is willing for endotracheal intubation and mechanical ventilation if he is not improved on BiPAP. I have ordered BiPAP 03/28. Breathing treatments changed to every 4 hours scheduled. Continue Zosyn 4.5 g every 8 hours. Give single dose of vancomycin 1 g x1. We will continue amphotericin B and Diflucan per ID Objective Vital Signs / I&O: Vital Signs 11/06/17 16:00 11/06/17 18:00 11/06/17 19:56 Temperature 98.1 F Pulse Rate 83 95 H Respiratory Rate 20 Blood Pressure 116/71 Pulse Oximetry 94 L 93 L 11/06/17 20:00 11/06/17 22:00 11/07/17 00:00 Temperature 97.9 F 97.9 F Pulse Rate 93 H 85 98 H Respiratory Rate 30 H 26 H Blood Pressure 117/76 114/76 Pulse Oximetry 92 L 95 11/07/17 02:00 11/07/17 02:24 11/07/17 04:00 Temperature 98 F Pulse Rate 78 69 Respiratory Rate 26 H 21 Blood Pressure 118/76 Pulse Oximetry 95 11/07/17 06:00 11/07/17 07:41 11/07/17 08:00 Temperature 97.6 F Pulse Rate 77 81 Respiratory Rate 20 Blood Pressure 128/77 Pulse Oximetry 95 93 L 11/07/17 10:00 11/07/17 11:41 11/07/17 12:00 Temperature 98.9 F 98.9 F Pulse Rate 74 70 74 Respiratory Rate 23 22 Blood Pressure 104/66 121/70 Pulse Oximetry 93 L 98 11/07/17 12:06 Temperature 98.9 F Pulse Rate 70 Respiratory Rate 25 H Blood Pressure 104/66 Pulse Oximetry 93 L Intake & Output 11/06/17 11/07/17 11/07/17 18:59 06:59 18:59 Intake Total 780.925 / 780.925 550 / 550 681 / 681 Output Total 1090 / 1090 1333 / 1333 Balance -309.075 / -309.075 -783 / -783 681 / 681 Weight 90.8 kg Intake: IV 100.925 / 100.925 300 / 300 200 / 200 SoluMEDROL Inj 5 MG D5W Inj 0.8 0.925 / 0.925 ML In Bag/Syringe 1 EACH @ As Directed IT MoWeFr KATHERINE Rx#: [id number] KCl 20 mEq Premix Inj 20 meq In 100 / 100 300 / 300 200 / 200 100 ml @ 50 mls/hr IV.SIG Q2H KATHERINE Rx#:[id number] Oral 450 / 450 250 / 250 Intake (Blood Product) Amt 230 / 230 481 / 481 Plt Pheresis A Leukoreduced 286 / 286 Unit [id number] Plt Pheresis C Leukoreduced 195 / 195 Unit [id number] Prepooled Plts Leukoreduced 5d 230 / 230 Unit [id number] Output: Stool 0 / 0 Estimated Blood Loss 5 / 5 Urine Amount (Catheter) 1000 / 1000 1200 / 1200 Condom 1000 / 1000 1200 / 1200 Wound Drainage 84 / 84 Right Occipital 84 / 84 Intracranial Drainage 85 / 85 49 / 49 Left Temporoparietal 85 / 85 49 / 49 Other: Date of Last Bowel Movement 10/30/17 10/30/17 10/30/17 # Bowel Movements 0 0 # Emeses 1 Result Diagrams: 11/07/17 06:47 11/07/17 11:00 Imaging: Chest x-ray shows left lower lobe infiltrate Objective Remarks: GEN: 52-year-old male who is in acute respiratory distress breathing about 35-40 breaths per minute using accessory muscles HEENT: Pallor present, no icterus, tongue/ mucosa moist. Suboccipital incision site with dressing in place, ventriculostomy noted Neck: No JVD. Chest/Pulm: Tachypneic using accessory muscles. Bibasilar decreased air entry with few crackles CVS: S1-S2 regular, no murmur. Tachycardic GI/abdomen: soft, nontender, bowel sounds sluggish. Umbilical hernia in place Extremities: warm bilaterally, no edema Neuro: Awake and alert, knows he is at the hospital and oriented to person also. Unable to let me know the time, following commands but appears weaker on the left. Assessment and Plan - Assessment and Plan Plan: A/P Assessment and Plan Assessment and Plan Neuro/Psych: Left Cerebellar mass with pathology showing metastatic non-small cell carcinoma s/p suboccipital craniectomy, C1 laminectomy, microsurgical resection of metastatic carcinoma, duraplasty - 09/13 s/p reexploration of the post fossa craniectomy, evacuation of cerebellar clot, duraplasty, placement of epidural drain for cerebellar hemorrhage. - 09/24 Right frontal Walt hole with placement of a ventriculostomy catheter removed Fungal/Yeast Ventriculitis Status post fall s/p EVD 09/29 for base of skull CSF leak vs. seroma. s/p Lancing hole with ventriculostomy placement 10/[address] brain revealed left posterior fossa mass. Repeat CT brain 09/20 revealed much improved cerebral edema. 09/[address] tiny left cerebellar hemorrhage. MRI brain revealed a focal 4 cm left cerebellar mass with vasogenic edema s/p stereotactic image guided suboccipital craniectomy, C1 laminectomy, microsurgical resection of metastatic carcinoma, duraplasty by Dr. Horvath Dexamethasone. Seizure prophylaxis with levetiracetam 500 mg po twice daily Acetaminophen 650 mg p.o. every 6 hours as needed fever Hydrocodone/acetaminophen 10/325 1 to 2 tablet every 4 hours as needed pain 1 through 10 with hydromorphone as needed Neurosurgery/Dr. Horvath following Pathology - NSCCA - likely bladder primary Continue EVD see ID section for ventriculitis management (Stat CT brain 09/24 a.m. revealed progressive hemorrhage identified within the posterior fossa with effacement of the fourth ventricle and quadrigeminal plate cistern as well as the atria of the left lateral ventricle. Repeat CT brain postop 09/24 revealed persistent areas of hemorrhage within the left posterior fossa as well as pneumocephalus within the surgical bed in the left posterior fossa. interval increased diffuse edema of the left cerebral hemisphere compared to previous examination with minimal subfalcine herniation to the right measuring 3 mm. Slight interval worsening effacement of the left lateral ventricle is noted. Scattered stable areas of acute subarachnoid hemorrhage are again noted within the frontoparietal regions bilaterally. CT brain 09/25 reveals stable hemorrhage/edema) CV: History of A. Flutter status post ablation by Dr. Mantilla 07/09 -currently normal sinus rhythm Chronic systolic heart failure ejection fraction 25% per echocardiogram 07/09 Essential hypertension Hyperlipidemia Sinus bradycardia/asymptomatic Give IV Lasix 20 mg 1 stat 2D echocardiogram 07/09 revealed EF 25%. Echocardiogram 09/16 - endomyocardial borders are poorly visualized Normal left ventricular size. Wall thickness is normal. EF 45-50%. Nuclear medicine stress test per cardiology revealed no reversible ischemia. Ejection fraction 40% Goal keep mean arterial pressure around 80. Requires intermittent norepinephrine for hypotension and nicardipine drip if necessary to maintain goals Hold simvastatin 20 mg nightly for dyslipidemia. As needed hydralazine/labetalol/clonidine/enalaprilat/nicardipine drip ordered for hypertension keep less than [address] Mancera - no treatment necessary. Lopressor to 50 mg bid, Vasotec to 5 bid Resp: Acute hypoxemic respiratory failure Left lower lobe pneumonia healthcare associated Prior history of tobaccoism 3 mm anterior left lower lobe and posterior right lower lobe pulmonary nodules Acute respiratory failure on mechanical ventilation Initiate BiPAP 03/28. Titrate FiO2 to keep oxygen saturation more than 90% Chest x-ray shows left lower lobe pneumonia If not improving with BiPAP patient will need endotracheal intubation hob elevated, nebs q4hr scheduled and as needed Previously extubated on 10/11, tolerating nasal cannula. Previous CT chest CT pulmonary angiogram negative for PE previously. CT thorax revealed pulmonary nodules as above. Repeat CT scan in [address] pulmonary angiogram 09/26 revealed no pulmonary embolism. Possible aspiration/infiltrates noted. Mild pulmonary edema resolved. GI: Colonic diverticulosis Aortic lymphadenopathy to 3.9 cm Umbilical wall hernia Hypoalbuminemia Elevated total bilirubin Elevated AST N.p.o. except meds Lansoprazole 30 mg by tube daily for GI prophylaxis Docusate sodium/senna 1 tablet twice daily for bowel regimen Endo: Hyperglycemia/acute SSI with Novolin R with Accu-Cheks to maintain euglycemia/medium regimen while on high-dose dexamethasone Renal: Bilateral renal cysts 3.7 cm on the right and 2.9 cm on the left superior pole history of bladder cancer status post turbt/chemoradiation therapy Creatinine currently within normal limits Monitor urine output with accurate I's and O's Heme: Thrombocytopenia Normocytic anemia Leukopenia Chronic target specific oral anticoagulant use history of bladder cancer status post turbt/chemoradiation therapy Holding apixaban 5 mg p.o. twice daily with s/p brain mass resection, and EVD in place. Do not resume. Per cardiology. Hematology following Dr. Elizalde is his oncologist. Currently seen Dr. Chen during this hospitalization. Follow-up with outpatient oncology ID: Fungal/yeast ventriculitis Left lower lobe healthcare associated pneumonia ID following: Dr. Gibbons Started on Zosyn 4.5 g every 6 hours, and vancomycin 1 g 1 Sputum culture if available CSF cultures from 10/10 growing yeast 2/2 cultures. Continue IV AMpho, Intrathecal Ampho plus solumedrol IT, Fluconazole IV Access Use PIV Prophylaxis -GI lansoprazole -DVT -SCD/started 09/19 per neurosurgery enoxaparin DVT prophylaxis/discontinued 09/24. Avoid chemical DVT prophylaxis due to severe thrombocytopenia
[2017-11-07] MEDS ORDERED: Vancomycin Inj 1,000 MG in Sodium Chlor 0.9% Inj 250 ML IV.SIG ONE (15:00)
[2017-11-07] MEDS ORDERED: Piperacil/Tazo 4.5 GM Premix 4.5 GM/100 ML BAG IV.SIG SCH ×2 (15:00)
--- NOTE | 2017-11-07 15:25 | P.PNID ---
Subjective Remarks: ID vb Overnight events reviewed with RN Clearly deteriorating went from RA to 100 % NRB in les[place] 24 hrs CXR today with new infilatrate aspirated s/p removal of old ventric and placement of new ventric. November 03 clx are neg on G stain and no growth @ 72 hrs No seizures. No fever No rash No new issues denies headaches today. No Nausea or vomiting, denies visual or hearing changes. Follows commands and talks,smiles worsening cytopenias: plt s down to 30s and WBC down to 1.5 ANC 1400 today dw director of events yday: Fluconazol most likley culprit Antibiotics: IV AMpho Intrathecal Ampho plus solumedrol IT. Last November 03 Fluconazole IV zosyn Lines: Lines ok Past Medical History: atrial flutter systolic heart failure likely chronic ejection fraction 25%, hypertension, hyperlipidemia bladder cancer status post removal with chemoradiation therapy 2015. ablation bladder surgery 2 yrs ago Allergies/Adverse Reactions: Allergies No Known Allergies Allergy (Unknown, Uncoded 07/08/17 00:15) Objective Vital Signs 11/06/17 16:00 11/06/17 18:00 11/06/17 19:56 Temperature 98.1 F Pulse Rate 83 95 H Respiratory Rate 20 Blood Pressure 116/71 Pulse Oximetry 94 L 93 L 11/06/17 20:00 11/06/17 22:00 11/07/17 00:00 Temperature 97.9 F 97.9 F Pulse Rate 93 H 85 98 H Respiratory Rate 30 H 26 H Blood Pressure 117/76 114/76 Pulse Oximetry 92 L 95 11/07/17 02:00 11/07/17 02:24 11/07/17 04:00 Temperature 98 F Pulse Rate 78 69 Respiratory Rate 26 H 21 Blood Pressure 118/76 Pulse Oximetry 95 11/07/17 06:00 11/07/17 07:41 11/07/17 08:00 Temperature 97.6 F Pulse Rate 77 81 Respiratory Rate 20 Blood Pressure 128/77 Pulse Oximetry 95 93 L 11/07/17 10:00 11/07/17 11:41 11/07/17 12:00 Temperature 98.9 F 98.9 F Pulse Rate 74 70 74 Respiratory Rate 23 22 Blood Pressure 104/66 121/70 Pulse Oximetry 93 L 98 11/07/17 12:06 11/07/17 14:00 11/07/17 14:53 Temperature 98.9 F Pulse Rate 70 71 Respiratory Rate 25 H Blood Pressure 104/66 Pulse Oximetry 93 L 96 Intake & Output 11/06/17 11/07/17 11/07/17 18:59 06:59 18:59 Intake Total 780.925 / 780.925 550 / 550 681 / 681 Output Total 1090 / 1090 1333 / 1333 Balance -309.075 / -309.075 -783 / -783 681 / 681 Weight 90.8 kg Intake: IV 100.925 / 100.925 300 / 300 200 / 200 SoluMEDROL Inj 5 MG D5W Inj 0.8 0.925 / 0.925 ML In Bag/Syringe 1 EACH @ As Directed IT MoWeFr KATHERINE Rx#: [id number] KCl 20 mEq Premix Inj 20 meq In 100 / 100 300 / 300 200 / 200 100 ml @ 50 mls/hr IV.SIG Q2H KATHERINE Rx#:[id number] Oral 450 / 450 250 / 250 Intake (Blood Product) Amt 230 / 230 481 / 481 Plt Pheresis A Leukoreduced 286 / 286 Unit [id number] Plt Pheresis C Leukoreduced 195 / 195 Unit [id number] Prepooled Plts Leukoreduced 5d 230 / 230 Unit [id number] Output: Stool 0 / 0 Estimated Blood Loss 5 / 5 Urine Amount (Catheter) 1000 / 1000 1200 / 1200 Condom 1000 / 1000 1200 / 1200 Wound Drainage 84 / 84 Right Occipital 84 / 84 Intracranial Drainage 85 / 85 49 / 49 Left Temporoparietal 85 / 85 49 / 49 Other: Date of Last Bowel Movement 10/30/17 10/30/17 10/30/17 # Bowel Movements 0 0 # Emeses 1 11/06/17 17:50 Shunt Fluid Gram Stain - Final 11/06/17 17:50 Shunt Fluid CSF Culture - Preliminary No growth in 24 hours 10/30/17 Unknown Cerebral Spinal Fluid - Shunt Fluid Fungal Smear - Final No fungal elements seen 10/30/17 Unknown Cerebral Spinal Fluid - Shunt Fluid Fungal Culture - Preliminary No growth in 1 week 11/03/17 11:30 Shunt Fluid Gram Stain - Final 11/03/17 11:30 Shunt Fluid CSF Culture - Final No growth in 72 hours (aerobically and anaerobically ) Lab - Hematology Results 11/06/17 11/07/17 06:46 06:47 WBC 2.0 L 1.5 L RBC 3.09 L 2.76 L Hgb 9.1 L 8.1 L Hct 27.2 L 24.5 L MCV 88.2 88.8 MCH 29.4 29.5 MCHC 33.3 33.2 RDW 19.2 H 19.4 H Plt Count 32 L 31 L MPV 9.4 9.8 Prelim Diff (Auto) Manual diff required Manual diff required WBC Differential Manual diff final Manual diff final Seg Neuts % (Manual) 76 H 71 H Band Neuts % (Manual) 10 H 18 H Lymphocytes % (Manual) 9 9 Monocytes % (Manual) 2 1 Metamyelocytes % (Man) 1 Myelocytes % (Man) 3 H Abs Neuts (Manual) 1.8 1.4 L Nucleated RBCs/100 WBC 8 H 9 H Differential Comment . . Platelet Estimate Low L Low L Platelet Morphology Normal Normal Ovalocytes 1+ H Lab - Chemistry Results 11/05/17 11/06/17 11/06/17 23:51 06:06 06:46 Sodium 152 H Potassium 2.4 L* Chloride 116 H Carbon Dioxide 24.7 Anion Gap 11 BUN 46 H Creatinine 0.64 Estimated GFR Greater than 89 POC Glucose 268 H 176 H Random Glucose 151 H Calcium 8.3 L Phosphorus 3.2 Magnesium 1.8 Iron TIBC % Saturation Ferritin Total Bilirubin 1.3 H AST 29 ALT 76 Alkaline Phosphatase 124 H Total Protein 5.4 L D Albumin 2.0 L Vitamin B12 Folate 11/06/17 11/06/17 11/06/17 06:46 11:40 18:26 Sodium Potassium Chloride Carbon Dioxide Anion Gap BUN Creatinine Estimated GFR POC Glucose 301 H 212 H Random Glucose Calcium Phosphorus Magnesium Iron 37 L TIBC 213 L % Saturation 17.4 L Ferritin 4525 H Total Bilirubin AST ALT Alkaline Phosphatase Total Protein Albumin Vitamin B12 519 Folate 8.7 11/06/17 11/07/17 11/07/17 23:27 06:47 11:00 Sodium 154 H Potassium 3.3 L D 3.5 Chloride 120 H Carbon Dioxide 22.6 Anion Gap 11 BUN 41 H Creatinine 0.58 L Estimated GFR Greater than 89 POC Glucose 240 H Random Glucose 188 H Calcium 8.0 L Phosphorus 2.9 Magnesium 1.8 Iron TIBC % Saturation Ferritin Total Bilirubin 1.3 H AST 23 ALT 66 Alkaline Phosphatase 111 Total Protein 5.0 L Albumin 1.8 L Vitamin B12 Folate 11/07/17 11:59 Sodium Potassium Chloride Carbon Dioxide Anion Gap BUN Creatinine Estimated GFR POC Glucose 211 H Random Glucose Calcium Phosphorus Magnesium Iron TIBC % Saturation Ferritin Total Bilirubin AST ALT Alkaline Phosphatase Total Protein Albumin Vitamin B12 Folate Imaging: ITS Impressions Head CT 10/26/17 00:00 CONCLUSION: Slight interval increase in size of hemorrhage in the left paramedian posterior fossa. Liver Ultrasound 10/27/17 00:00 CONCLUSION: 1. Simple right renal cyst. 2. Otherwise normal examination of the abdomen. Chest X-Ray 11/07/17 00:00 CONCLUSION: 1. New left lower lobe airspace consolidation and associated volume loss. Physical Exam: Physical Exam CONSTITUTIONAL/GENERAL: toxic; lethargic On 100% non rebreather SKIN: No jaundice, rashes, or lesions. Warm and dry HEAD: Ventric in place with cloudy blood-tinged CSF . R parietal incision clean Ventric is now on the L side EYES: Extraocular motions intact. No scleral icterus. No injection or drainage. Fundi not examined. ENT: Nose without bleeding or purulent drainage. Moist mucosa CARDIOVASCULAR: Regular rate and rhythm without murmurs, gallops, or rubs. RESPIRATORY/CHEST: Symmetric, unlabored respirations. Clear to auscultation. Breath sounds equal bilaterally. No wheezes, rales, or rhonchi. GASTROINTESTINAL: Abdomen soft, non-tender, nondistended. No guarding. Bowel sounds present. Has an umbilical hernia GENITOURINARY: Without palpable bladder distension MUSCULOSKELETAL: Extremities without clubbing, cyanosis, or edema.. No calf tenderness. No mottling or clubbing. NEUROLOGICAL: very lethargic, but easily aousable follows commands. response is normal, but speacks very quetly, wispers. Right hand principal biostatistician much stronger compared to the left PSYCHIATRIC: Cooperative LINE: No evidence of infection Assessment and Plan (1) Infection by Lisa species Status: Acute Code(s): B37.9 - Candidiasis, unspecified (2) Cerebral ventriculitis Status: Acute Code(s): G04.90 - Encephalitis and encephalomyelitis, unspecified (3) Metastatic urothelial carcinoma Status: Chronic Code(s): C79.10 - Secondary malignant neoplasm of unspecified urinary organs (4) History of bladder cancer Status: Chronic Code(s): Z85.51 - Personal history of malignant neoplasm of bladder - Plan IMPRESSION Bladder cancer, metastatic with brain mets per oncology notes: metastatic urothelial carcinoma. He has had a brain mass with pathology showing metastatic non-small cell carcinoma. S/P neurosurgical procedure C albicans ventriculitis Serratia, PSAE PNA Serratia bacteremia : source is likley PNA line (PICC), vs PNA vs surgical site infection sp 1 week of treatment Thrombocytopenia - likley med side effect Leukopenia - likley med side effect (fluconazll) New issue ; LLL PNA - aspirated despite of thickened liquids, now NPO Rapidly progressive hypoxia PLAN Continue Ampho B Intrathecal dc IT AMB if 11/03 clx w/o fungus @ 72 hrs 1. Solumedrol (Methylprednisone) Intrathecal 2. Intrathecal Ampho plus Intrathecal Solumedrol combo syringe. Continue IV ampho B dc Diflucan IV. 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
--- NOTE | 2017-11-07 17:57 | P.PNWCN ---
Wound Care Nurse Consult Description: Wound consult ordered by for wound management of sacrum Additional information: Patient not seen today spoke with RN Maura regarding possible sacral pressure injury. Per RN skin on buttocks is denuded and reddened. Calazime skin protectant paste is being applied. RN will vocera wound care if area worsens.
--- NOTE | 2017-11-07 18:42 | P.PNPAL ---
I was on unit and approached by nurse to see if I might be able to meet with . Upon my arrival Mrs. Clinton and their son were leaving the room. I introduced myself as part of the palliative care team. I asked if we could meet sometime on 11/08 to answer her questions. She will call me upon her arrival to the hospital. She tells me her wants to go home and she wants to know if I can help that happen. I explained I will need to review his records and will be able to answer these questions when we meet. She apologized for her previous resistance to palliative care assistance, no need for such an apology as their family has been through a lot and we understand. I provided her with my cell phone number for her to call when they arrive tomorrow morning to meet. .
[2017-11-07] MEDS ORDERED: Dexmedetomidine Inj 200 MCG/50 ML INFUS..BTL IV.CONT PRN (19:46)
[2017-11-07] MEDS ORDERED: Etomidate Inj 40 MG/20 ML Vial IV.PUSH ONE ×2 (20:00)
[2017-11-07] MEDS ORDERED: fentaNYL Citrate Inj 100 MCG/2 ML Ampul IV.PUSH ONE (20:00)
[2017-11-07] MEDS: Dexmedetomidine Inj 200 MCG in Sodium Chlor 0.9% Inj 50 ML IV.SIG PRN (20:39)
[2017-11-07] MEDS: Mirtazapine 15 MG Tablet PO SCH (21:57)
[2017-11-07] MEDS: Insulin Detemir Inj 1,000 UNIT/10 ML Vial SQ SCH (21:58)
[2017-11-07] MEDS: DEXTROSE 5% IV.SIG SCH ×2 (23:47)
[2017-11-07] MEDS: WATER IV.SIG SCH ×2 (23:47)
[2017-11-07] MEDS: AMPHOTERICIN B LIPOSOMAL IV.SIG SCH ×2 (23:47)
[2017-11-08] MEDS: levETIRAcetam 500 MG Tablet PO SCH (00:10)
[2017-11-08] MEDS: Dexmedetomidine Inj 200 MCG in Sodium Chlor 0.9% Inj 50 ML IV.SIG PRN ×2 (00:25→06:37)
[2017-11-08] MEDS: Insulin NovoLIN Regular Correctional Sugar Inj SQ SCH ×3 (00:46→12:44)
[2017-11-08] MEDS: Artificial Tears Opth Drops 15 ML Bottle EACH EYE SCH ×3 (06:02→22:15)
--- NOTE | 2017-11-08 07:17 | XR ---
EXAM DATE: 11/08/2017 7:10 AM EDT AGE/SEX: 52 years / Male INDICATIONS: . Short of breath. CLINICAL DATA: This is the patient's subsequent encounter. Patient reports that signs and symptoms h ave been present for 3 days and indicates a pain score of Nonresponsive. MEDICAL/SURGICAL HISTORY: . metastatic disease. None. COMPARISON: [facility] – [place] 1V SINGLE AP, 11/07/2017. . FINDINGS: Two AP views of the chest demonstrate persistent opacification of the left lung base, likely a combin ation of pleural fluid and airspace disease. A subtle somewhat nodular opacity is also seen in the ce ntral right lower lung. The cardiomediastinal contours are unremarkable. Osseous structures are int act. CONCLUSION: 1. Persistent left basilar opacification, likely a combination of pleural fluid and airspace disease. 2. Subtle somewhat nodular opacity in the central right lower lung. This may represent an infectious process, though follow-up is recommended to ensure resolution. Electronically signed by: Anita Aguayo MD 11/08/2017 7:16 AM EDT
[2017-11-08] MEDS: METHYLPREDNISOLONE SOD SUC IT SCH ×6 (08:50→11:14)
[2017-11-08] MEDS: Metoprolol Tartrate 50 MG Tablet PO SCH (08:50)
[2017-11-08] MEDS: Potassium Chloride 25 MEQ Effervescent Tablet PO SCH (08:50)
[2017-11-08] MEDS: DEXTROSE 5% IT SCH ×6 (08:50→11:14)
[2017-11-08] MEDS: [UNRECOGNIZED DRUG - OTHER] IT SCH ×4 (08:50→11:07)
[2017-11-08] MEDS: WATER IT SCH ×6 (08:50→11:14)
[2017-11-08] MEDS: Citalopram 20 MG Tablet PO SCH (08:50)
[2017-11-08] MEDS: Senna/Docusate Sodium 8.6/50 MG Tablet PO SCH (08:51)
[2017-11-08] MEDS: Pantoprazole Inj 40 MG Vial IV.PUSH SCH (08:51)
[2017-11-08] MEDS: [UNRECOGNIZED DRUG - OTHER] IT SCH ×2 (08:52→11:14)
--- NOTE | 2017-11-08 09:11 | P.PNCC ---
Subjective Subjective Remarks/Hospital Course: 52-year-old male. Date of admission 09/11/2017. Past medical history includes atrial flutter status post ablation by Dr. Mantilla, systolic heart failure likely chronic ejection fraction 25%, hypertension, hyperlipidemia and history of bladder cancer status post removal with chemoradiation therapy 2015. 09/11, the patient presented to [facility] ED status post slip and fall outside his work earlier today. Patient hit the left side of his forehead above the left eye head and face and sustained a laceration over his left upper eyelid. Patient is on apixaban 5 mg twice daily. He went to see his primary care doctor at [facility] and was asked to come to the emergency room instead. He was brought in by EMS from there. Patient is otherwise awake and answering questions appropriately. Vital signs are stable. No history of syncopal episode of vomiting. Patient says his last tetanus shot was in last couple years. Bleeding seems to have been controlled. Upon further evaluation, patient is cleaned of a headache with no vision changes with nausea and vomiting [address] of the head revealed a mass in the left posterior fossa. MRI brain relieved with a left cerebellar mass 4.4 cm with vasogenic edema. Midline. Dr. Horvath was notified by the ED and recommended ISC admission with dexamethasone 4 mg IV every 6 hours.. His laceration was sutured with 4.0 Ethicon by the ED physician. He is currently requesting his be notified of his admission 09/12: Resting in bed in no acute distress. Plan for bedside pulmonary function test and stress echocardiogram this afternoon. CT abdomen/pelvis revealed bilateral renal cysts, tiny right ureteral stones and periaortic lymphadenopathy up to 3.9 cm. Bilateral lower lobe 3 mm pulmonary nodules noted. Patient is awake alert no acute distress clinically stable. 09/13: Proceed to OR for evaluation of brain mass. Nuclear medicine scan revealed no reversible ischemia. Ejection fraction 40%. In good spirits. 09/14: Tolerated OR yesterday without complication. Excited to be consuming water at the present time. Pain controlled. No seizures noted. 09/15: Lying comfortably in bed no distress. CT of the head ordered for today. Ventriculostomy in place drained to 80 mL in 24 hours 09/16: Breathing comfortably. No complaints. BP up, will add PO hydralazine ( Reluctant to use beta vida with resting pulse 45.) 09/17: Lying in bed, comfortable. No acute distress. Ventriculostomy output less blood-tinged but appears slightly cloudy. Output 255 mL in 24 hours. Discussed with NAKUL Mercer about slightly cloudy CSF 09/18: Sitting up in bed eating breakfast no focal deficits. CSF culture sent yesterday appears slightly blood-tinged with very slight cloudiness. EVD output 198 mL in 24 hours. Raised to -10 09/19: EVD elevated and well tolerated. Bradycradia persists, no treatment necessary per cardiology. 09/20: Currently resting in bed in no acute distress. No ongoing issues. Ventriculostomy currently at -20 cm H2O. 175 cc reddish yellow. Opaque. Very small bowel movement today 09/21: Currently afebrile. Ventriculostomy is been clamped today. One bowel movement overnight. No complaints 09/22: Complains of headache overnight. Retro-orbit. No visual changes or hallucinations. Received narcotics overnight with some relief. CT brain pending. Noted that ventriculostomy was clamped overnight. 09/23: Afebrile. Noted some currently 128. Remains fatigued. Ventriculostomy removed. 09/24: Afebrile. Headache overnight 10 worsening. Dizziness noted. Started on nicardipine drip due to hypertension. Sodium 129-132 on 2% saline drip at 50 cc an hour. 09/25: Currently resting in bed in no acute distress. Status post reexploration of the posterior fossa craniectomy, evacuation of cerebellar clot, duraplasty with DuraGuard and DuraSeal, placement of epidural drain secondary to cerebellar hemorrhage. Remains sedated on propofol and fentanyl drips. Plan for CT brain exam.. 370 cc from SCOTT overnight SS 70 09/26: acutely hypoxemic this AM. no new pulmonary secretions. CXR unchanged. ordered CT pulmonary angiogram without evidence of PE. hypoxia improved spontaneously. somewhat positive fluid balance. CT brain with persistent edema and midline shift. 09/27: Afebrile. CT pulmonary revealed no pulmonary embolism. Remains sedated on propofol and fentanyl drips. Tube feeds at goal. 09/28: no changes. no improvements. remains deeply sedated per Dr. Horvath. 09/29: remains somewhat hypoxic on elevated fio2. lungs clear to auscultation without wheezing. CXR without overt cause. may be generalized volume overload: will start to diurese. repeat head CT with improving edema. per nsgy: cleared to wean sedation. 09/30: CSF leak from base of skull. nsgy placed EVD to decompress overnight. still needs diuresis. following commands. 10/01: no changes. still intermittently following commands. fio2 down to 40%. good diuresis overnight: will need to continue. CSF culture NGTD. 10/02: Afebrile. Following commands. Tiny emesis this a.m. Tube feeds back at goal rate. CSF culture no growth today. Urine culture with gram-negative lee ann. 10/03: ICP well controlled. Osmolality acceptable. 3% saline on hold. Urine not significant organisms, convert to ceftriaxone X 2 days. 10/04: Low grade fever persists. Continue ceftriaxone while awaiting cultures. Start 2% saline. 10/05: Reduce 2% saline, osmolality acceptable. 10/06: More alert today. Moves 4 limbs to command, tracks with eyes. Osmolality acceptably concentrated and blood pressure adequately controlled. 10/07: Extubated yesterday and continues to breathe comfortably. Protects airway. Afebrile, no leukocytosis. Chest x-ray has been clear aside from minor atelectasis. Sputum culture noted. Hold off treatment for now. Adjust antibiotics per ID service. 10/10: Patient had a CSF leak from previous posterior fossa craniectomy site. He went to the OR today and underwent bur hole with ventriculostomy placement by Dr. Horvath under general anesthesia, tolerated procedure well. Patient had a central line placed by anesthesia preoperatively and in view of concern regarding neurologic status was left intubated and transferred back to ICU and placed on mechanical ventilation. Critical care reconsulted by hospitalist service for vent management. I evaluated the patient following his arrival to the ICU. At that time he was drowsy though arousable, orally intubated on mechanical ventilation. History obtained by reviewing records and discussion with nursing staff. 10/11: remains intubated. CSF growing yeast, further ID to follow. discussed with Dr. Gibbons, and will need to empirically start fluconazole and Ampho B empirically until further speciation is resulted. 10/12: Extubated 10/11. Following commands. Knows he is at the hospital. Knows it is 2017. Ventriculostomy continues to drain. Critical Care reconsult note 11/07/2017. Critical care medicine was reconsulted today for acute deterioration in respiratory status. Patient's history was reviewed as above. Patient increasingly short of breath tachypneic since a.m. a chest x-ray showed left lower lobe pneumonia. On vent mask patient continued to desaturate, ABG 7.52/30 /59. Patient was placed on 100% nonrebreather. I immediately evaluated the patient is severely tachypneic breathing about 40 breaths per minute using accessory muscles. He is willing for endotracheal intubation and mechanical ventilation if he is not improved on BiPAP. I have ordered BiPAP 03/28. Breathing treatments changed to every 4 hours scheduled. Continue Zosyn 4.5 g every 8 hours. Give single dose of vancomycin 1 g x1. We will continue amphotericin B and Diflucan per ID 11/08: Patient remains critical in respiratory failure remains on BiPAP. Overnight had issues with respiratory distress and agitation, improved after starting Precedex. Chest x-ray shows increasing left-sided infiltrate. I had a long discussion with and explained the prognosis being very poor and patient not a candidate for radiation or chemotherapy for his stage IV cancer. She expressed good understanding she is willing to talk to palliative care, she will consider hospice but currently wants to continue aggressive care and patient remains a full code. Objective Vital Signs / I&O: Vital Signs 11/07/17 10:00 11/07/17 11:41 11/07/17 12:00 Temperature 98.9 F 98.9 F Pulse Rate 74 70 74 Respiratory Rate 23 22 Blood Pressure 104/66 121/70 Pulse Oximetry 93 L 98 11/07/17 12:06 11/07/17 14:00 11/07/17 14:53 Temperature 98.9 F Pulse Rate 70 71 Respiratory Rate 25 H Blood Pressure 104/66 Pulse Oximetry 93 L 96 11/07/17 15:59 11/07/17 16:00 11/07/17 16:04 Temperature 98.7 F Pulse Rate 81 85 Respiratory Rate 31 H 14 Blood Pressure 131/89 Pulse Oximetry 94 L 95 11/07/17 18:00 11/07/17 19:52 11/07/17 20:00 Temperature 98.7 F Pulse Rate 90 94 H 96 H Respiratory Rate 28 H 25 H Blood Pressure 126/82 Pulse Oximetry 97 99 11/07/17 22:00 11/07/17 23:30 11/08/17 00:00 Temperature 98.9 F Pulse Rate 102 H 92 H 98 H Respiratory Rate 25 H 37 H Blood Pressure 89/56 L Pulse Oximetry 96 11/08/17 01:06 11/08/17 02:00 11/08/17 03:29 Temperature Pulse Rate 88 87 Respiratory Rate 27 H Blood Pressure Pulse Oximetry 95 98 11/08/17 04:00 11/08/17 06:00 11/08/17 07:29 Temperature 98.5 F Pulse Rate 84 88 84 Respiratory Rate 20 18 Blood Pressure 85/56 L Pulse Oximetry 98 100 11/08/17 08:00 Temperature Pulse Rate Respiratory Rate 23 Blood Pressure Pulse Oximetry 99 Intake & Output 11/07/17 11/08/17 11/08/17 18:59 06:59 18:59 Intake Total 781 / 781 2102.925 / 2102.925 200 / 200 Output Total 4541 / 4541 825 / 825 Balance -3760 / -3760 1277.925 / 1277.925 200 / 200 Weight 87.6 kg Intake: IV 300 / 300 2102.925 / 2102.925 200 / 200 SoluMEDROL Inj 5 MG D5W Inj 3.8 3.925 / 3.925 ML Amphotericin B Conv. Inj 0. 1 MG In Bag/Syringe 1 EACH @ As Directed IT [employer] KATHERINE Rx#: [id number] Ambisome Inj 481.5 MG In D5W 640 / 640 Inj 320 ML @ 125 mls/hr IV.SIG Q24H KATHERINE Rx#:[id number] Precedex Inj 200 MCG In NS Inj 104 / 104 50 ML @ 0.2 MCG/KG/HR 4.72 mls/ hr IV.SIG TITRATE PRN Rx#: [id number] Diflucan 400 mg Premix Bag 400 400 / 400 ML @ 100 mls/hr IV.SIG Q24H KATHERINE Rx#:[id number] Primaxin Inj 500 MG In NS Inj 300 / 300 100 ML @ 200 mls/hr IV.SIG Q6HR KATHERINE Rx#:[id number] Zosyn 4.5 GM Premix 4.5 gm In 100 / 100 100 ml @ 200 mls/hr IV.SIG Q6H KATHERINE Rx#:[id number] KCl 20 mEq Premix Inj 20 meq In 300 / 300 100 / 100 100 / 100 100 ml @ 50 mls/hr IV.SIG Q2H PRN Rx#:[id number] Vancomycin Inj 1,000 MG In NS 250 / 250 Inj 250 ML @ 250 mls/hr IV.SIG ONCE ONE Rx#:[id number] Keppra Inj 500 MG In NS Inj 100 105 / 105 ML @ 400 mls/hr IV.SIG Q12H KATHERINE Rx#:[id number] Oral 0 / 0 Intake (Blood Product) Amt 481 / 481 Plt Pheresis A Leukoreduced 286 / 286 Unit [id number] Plt Pheresis C Leukoreduced 195 / 195 Unit [id number] Output: Urine 2250 / 2250 Stool 0 / 0 Urine Amount (Catheter) 2250 / 2250 800 / 800 Condom 2250 / 2250 800 / 800 Intracranial Drainage 41 / 41 25 / 25 Left Temporoparietal 25 / 25 Other: # Voids 1 Date of Last Bowel Movement 10/30/17 10/30/17 # Bowel Movements 0 Result Diagrams: 11/07/17 06:47 11/07/17 11:00 Objective Remarks: GEN: 52-year-old male who is critically ill on BiPAP, sedated with Precedex HEENT: Pallor present, no icterus, tongue/ mucosa moist. Suboccipital incision site with dressing in place, ventriculostomy noted Neck: No JVD. Chest/Pulm: Tachypneic, but improved on BiPAP. Bibasilar decreased air entry with few crackles. No wheezes CVS: S1-S2 regular, no murmur. GI/abdomen: soft, nontender, bowel sounds sluggish. Umbilical hernia in place Extremities: warm bilaterally, no edema Neuro: Currently sedated with Precedex, somnolent. Partial eye opening to verbal stimuli. Moves extremities spontaneously intermittently follows commands Assessment and Plan - Assessment and Plan Plan: A/P Assessment and Plan Assessment and Plan Neuro/Psych: Left Cerebellar mass with pathology showing metastatic non-small cell carcinoma s/p suboccipital craniectomy, C1 laminectomy, microsurgical resection of metastatic carcinoma, duraplasty - 09/13 s/p reexploration of the post fossa craniectomy, evacuation of cerebellar clot, duraplasty, placement of epidural drain for cerebellar hemorrhage. - 09/24 Right frontal Walt hole with placement of a ventriculostomy catheter removed s/p EVD 09/29 for base of skull CSF leak vs. seroma. s/p [place] hole with ventriculostomy placement 10/10 for CSF leak Fungal/Yeast Ventriculitis Status post fall CT brain revealed left posterior fossa mass. Repeat CT brain 09/20 revealed much improved cerebral edema. 09/[address] tiny left cerebellar hemorrhage. MRI brain revealed a focal 4 cm left cerebellar mass with vasogenic edema s/p stereotactic image guided suboccipital craniectomy, C1 laminectomy, microsurgical resection of metastatic carcinoma, duraplasty by Dr. Horvath On Decadron 3 mg IV every 6 hours, reduce to 2 mg every 8 hours for 5 days and stop. Cleared by neurosurgery to stop Seizure prophylaxis with levetiracetam 500 mg po twice daily Acetaminophen 650 mg p.o. every 6 hours as needed fever. Hydrocodone/ acetaminophen 10/325 1 to 2 tablet every 4 hours as needed pain, hydromorphone as needed Neurosurgery/Dr. Horvath following Pathology - NSCCA - likely bladder primary Continue EVD see ID section for ventriculitis management (Stat CT brain 09/24 a.m. revealed progressive hemorrhage identified within the posterior fossa with effacement of the fourth ventricle and quadrigeminal plate cistern as well as the atria of the left lateral ventricle. Repeat CT brain postop 09/24 revealed persistent areas of hemorrhage within the left posterior fossa as well as pneumocephalus within the surgical bed in the left posterior fossa. interval increased diffuse edema of the left cerebral hemisphere compared to previous examination with minimal subfalcine herniation to the right measuring 3 mm. Slight interval worsening effacement of the left lateral ventricle is noted. Scattered stable areas of acute subarachnoid hemorrhage are again noted within the frontoparietal regions bilaterally. CT brain 09/25 reveals stable hemorrhage/edema) CV: History of A. Flutter status post ablation by Dr. Mantilla 07/09 -currently normal sinus rhythm Chronic systolic heart failure ejection fraction 25% per echocardiogram 07/09 Essential hypertension Hyperlipidemia Sinus bradycardia/asymptomatic s/p IV Lasix 20 mg 1 stat 2D echocardiogram 07/09 revealed EF 25%. Echocardiogram 09/16 - endomyocardial borders are poorly visualized Normal left ventricular size. Wall thickness is normal. EF 45-50%. Nuclear medicine stress test per cardiology revealed no reversible ischemia. Ejection fraction 40% Hold simvastatin 20 mg nightly for dyslipidemia. As needed hydralazine/labetalol/clonidine/enalaprilat/nicardipine drip ordered for hypertension keep less than [address] Mancera - no treatment necessary. Lopressor to 50 mg bid, Vasotec to 5 bid Resp: Acute hypoxemic respiratory failure Left lower lobe pneumonia healthcare associated Prior history of tobaccoism Left lower lobe and posterior right lower lobe pulmonary nodules ? Metastatic Continue BiPAP 03/28. Titrate FiO2 to keep oxygen saturation more than 90% If respiratory status worsens or aspiration patient will need endotracheal intubation Chest x-ray shows left lower lobe pneumonia, today shows worsening infiltrate hob elevated, nebs q4hr scheduled and as needed Previously extubated on 10/11, tolerating nasal cannula. Previous CT chest CT pulmonary angiogram negative for PE previously. CT thorax revealed pulmonary nodules as above. Repeat CT scan in [address] pulmonary angiogram 09/26 revealed no pulmonary embolism. Possible aspiration/infiltrates noted. Mild pulmonary edema resolved. GI: Colonic diverticulosis Aortic lymphadenopathy to 3.9 cm Umbilical wall hernia Hypoalbuminemia Elevated total bilirubin Elevated AST N.p.o. except meds Lansoprazole 30 mg by tube daily for GI prophylaxis Docusate sodium/senna 1 tablet twice daily for bowel regimen Endo: Hyperglycemia/acute SSI with Novolin R with Accu-Cheks to maintain euglycemia/medium regimen while on dexamethasone Renal: Bilateral renal cysts 3.7 cm on the right and 2.9 cm on the left superior pole history of bladder cancer status post turbt/chemoradiation therapy Creatinine currently within normal limits Monitor urine output with accurate I's and O's Heme: Thrombocytopenia Normocytic anemia Leukopenia Chronic target specific oral anticoagulant use history of bladder cancer status post turbt/chemoradiation therapy Holding apixaban 5 mg p.o. twice daily with s/p brain mass resection, and EVD in place. Do not resume. Per cardiology. Hematology following Dr. Elizalde is his oncologist. Currently seen Dr. Chen during this hospitalization. Follow-up with outpatient oncology I discussed with Dr. Chen yesterday, patient is unable to undergo chemoradiation due to current critical condition, his overall prognosis from stage IV cancer is very poor ID: Fungal/yeast ventriculitis Left lower lobe healthcare associated pneumonia ID following: Dr. Gibbons Solumedrol (Methylprednisone) Intrathecal Intrathecal Ampho plus Intrathecal Solumedrol combo syringe. Continue IV ampho B dcd Diflucan IV 11/07 Primaxin and vancomycin for healthcare associated pneumonia CSF cultures from 10/10 growing yeast 2/2 cultures. Access Use PIV Prophylaxis -GI lansoprazole -DVT -SCD/started 09/19 per neurosurgery enoxaparin DVT prophylaxis/discontinued 09/24. Avoid chemical DVT prophylaxis due to severe thrombocytopenia Dispo: Patient remains very critical currently on BiPAP but may decompensate and need endotracheal intubation for severe left lower lobe pneumonia and hypoxemia. I had a long discussion with and son 11/07/17 and explained the prognosis being very poor and patient not a candidate for radiation or chemotherapy for his stage IV cancer. I also explained to the fact that patient has severe cardiomyopathy, also now severe sepsis and hypoxemic respiratory failure. His condition is deemed terminal and it is highly unlikely he will get discharged from hospital unless by hospice. She expressed good understanding she is willing to talk to palliative care, today 11/08/17. I have discussed with Dr. Chen and Dr. Horvath CCT 40 MIN Code Status: Full Discussed Condition With: Dr. Horvath, bedside RN
[2017-11-08 09:41] LABS: Hematocrit 24.6 % (39.0-51.0); Mean Corpuscular HGB Conc 32.6 % (32.0-36.0); Mean Corpuscular Hemoglobin 29.5 pg (27.0-34.0); Mean Corpuscular Volume 90.7 fL (80.0-100.0); Mean Platelet Volume 9.4 fL (7.0-11.0); Platelet Count 35 th/mm3 (150-450); Red Blood Count 2.72 mil/mm3 (4.50-5.90); Red Cell Distribution Width 19.5 % (11.6-17.2); White Blood Count 1.2 th/mm3 (4.0-11.0)
[2017-11-08 10:34] LABS: Alanine Aminotransferase 55 U/L (12-78)
[2017-11-08 10:36] LABS: Alkaline Phosphatase 109 U/L (45-117); Total Protein 5.4 g/dL (6.4-8.2)
[2017-11-08 10:38] LABS: Albumin 1.8 g/dL (3.4-5.0); Anion Gap 15 meq/L (5-15); Blood Urea Nitrogen 39 mg/dL (7-18); Calcium 8.4 mg/dL (8.5-10.1); Carbon Dioxide 20.2 meq/L (21.0-32.0); Chloride 119 meq/L (98-107); Glomerular Filtration Rate Greater Than 89 mL/min (>89); Glucose,Random 249 mg/dL (74-106); Sodium 154 meq/L (136-145)
[2017-11-08 10:39] LABS: Aspartate Aminotransferase 39 U/L (15-37); Potassium 3.3 meq/L (3.5-5.1)
[2017-11-08 11:17] LABS: Dohle Bodies Present; Lymphocytes 9 % (9-44); Metamyelocytes 5 % (0-1); Monocytes 1 % (0-8); Myelocytes 2 % (0-0); Tallied Nucleated RBC 5 (0-0); Toxic Granulation 2+
[2017-11-08 11:18] LABS: Platelet Morphology Normal (Normal)
[2017-11-08 11:19] LABS: Tear Drop Cells 1+
--- NOTE | 2017-11-08 13:35 | P.PNNS ---
Subjective Interval history: 11/08: pt with worsened respiratory status yesterday, critical care reconsulted. on bipap now. Physical Exam Vital signs: Vital Signs 11/07/17 14:00 11/07/17 14:53 11/07/17 15:59 Temperature Pulse Rate 71 Respiratory Rate Blood Pressure Pulse Oximetry 96 94 L 11/07/17 16:00 11/07/17 16:04 11/07/17 18:00 Temperature 98.7 F Pulse Rate 81 85 90 Respiratory Rate 31 H 14 Blood Pressure 131/89 Pulse Oximetry 95 11/07/17 19:52 11/07/17 20:00 11/07/17 22:00 Temperature 98.7 F Pulse Rate 94 H 96 H 102 H Respiratory Rate 28 H 25 H Blood Pressure 126/82 Pulse Oximetry 97 99 11/07/17 23:30 11/08/17 00:00 11/08/17 01:06 Temperature 98.9 F Pulse Rate 92 H 98 H Respiratory Rate 25 H 37 H Blood Pressure 89/56 L Pulse Oximetry 96 95 11/08/17 02:00 11/08/17 03:29 11/08/17 04:00 Temperature 98.5 F Pulse Rate 88 87 84 Respiratory Rate 27 H 20 Blood Pressure 85/56 L Pulse Oximetry 98 98 11/08/17 06:00 11/08/17 07:00 11/08/17 07:29 Temperature Pulse Rate 88 80 84 Respiratory Rate 21 18 Blood Pressure 92/61 L Pulse Oximetry 99 100 11/08/17 08:00 11/08/17 09:06 11/08/17 10:00 Temperature 100.5 F H Pulse Rate 86 83 95 H Respiratory Rate 21 22 24 Blood Pressure 82/53 L 83/56 L 94/62 L Pulse Oximetry 99 99 96 11/08/17 11:00 11/08/17 11:39 11/08/17 11:58 Temperature Pulse Rate 95 H 106 H Respiratory Rate 18 27 H 18 Blood Pressure 115/72 Pulse Oximetry 96 11/08/17 12:00 Temperature 99.7 F H Pulse Rate 101 H Respiratory Rate 18 Blood Pressure 113/68 Pulse Oximetry 99 Intake & Output 11/07/17 11/08/17 11/08/17 18:59 06:59 18:59 Intake Total 781 / 781 2102.925 / 2102.925 304.850 / 304.850 Output Total 4541 / 4541 825 / 825 Balance -3760 / -3760 1277.925 / 1277.925 304.850 / 304.850 Weight 87.6 kg Intake: IV 300 / 300 2102.925 / 2102.925 304.850 / 304.850 SoluMEDROL Inj 5 MG D5W Inj 3.8 3.925 / 3.925 3.925 / 3.925 ML Amphotericin B Conv. Inj 0. 1 MG In Bag/Syringe 1 EACH @ As Directed IT [employer] KATHERINE Rx#: [id number] SoluMEDROL Inj 5 MG D5W Inj 0.8 0.925 / 0.925 ML In Bag/Syringe 1 EACH @ As Directed [employer] KATHERINE Rx#: [id number] Ambisome Inj 481.5 MG In D5W 640 / 640 Inj 320 ML @ 125 mls/hr IV.SIG Q24H KATHERINE Rx#:[id number] Precedex Inj 200 MCG In NS Inj 104 / 104 50 ML @ 0.2 MCG/KG/HR 4.72 mls/ hr IV.SIG TITRATE PRN Rx#: [id number] Diflucan 400 mg Premix Bag 400 400 / 400 ML @ 100 mls/hr IV.SIG Q24H KATHERINE Rx#:[id number] Primaxin Inj 500 MG In NS Inj 300 / 300 100 / 100 100 ML @ 200 mls/hr IV.SIG Q6HR KATHERINE Rx#:[id number] Zosyn 4.5 GM Premix 4.5 gm In 100 / 100 100 ml @ 200 mls/hr IV.SIG Q6H KATHERINE Rx#:[id number] KCl 20 mEq Premix Inj 20 meq In 300 / 300 100 / 100 100 / 100 100 ml @ 50 mls/hr IV.SIG Q2H PRN Rx#:[id number] Vancomycin Inj 1,000 MG In NS 250 / 250 Inj 250 ML @ 250 mls/hr IV.SIG ONCE ONE Rx#:[id number] Keppra Inj 500 MG In NS Inj 100 105 / 105 ML @ 400 mls/hr IV.SIG Q12H KATHERINE Rx#:[id number] Oral 0 / 0 Intake (Blood Product) Amt 481 / 481 Plt Pheresis A Leukoreduced 286 / 286 Unit [id number] Plt Pheresis C Leukoreduced 195 / 195 Unit [id number] Output: Urine 2250 / 2250 Stool 0 / 0 Urine Amount (Catheter) 2250 / 2250 800 / 800 Condom 2250 / 2250 800 / 800 Intracranial Drainage Left Temporoparietal Other: # Voids 1 Date of Last Bowel Movement 10/30/17 10/30/17 10/30/17 # Bowel Movements 0 Narrative: CSF appears less dark red today EVD draining well Lethargic, on bipap - Urinary Catheter Management Condom Cath placed during this visit: yes Reason for continuing: Hourly intake/output Insertion date: 10/30/17 Insertion time: 13:34 CATHETER Cath placed during this visit: yes Reason for continuing: Other continuation reason Insertion date: 10/30/17 Assessment and Plan - Assessment (1) Cerebral ventriculitis Code(s): G04.90 - Encephalitis and encephalomyelitis, unspecified Status: Acute (2) Metastatic urothelial carcinoma Code(s): C79.10 - Secondary malignant neoplasm of unspecified urinary organs Status: Chronic - Plan f/u repeat cultures, so far negative since 10/30/17 f/u CT Brain pending dose of intrathecal ampho given today
[2017-11-08] MEDS ORDERED: Hyoscyamine Inj 0.5 MG/ML Ampul IV.PUSH PRN (14:21)
[2017-11-08] MEDS ORDERED: Acetaminophen 650 MG Supp RECTAL PRN (14:21)
[2017-11-08] MEDS ORDERED: Hyoscyamine Inj 0.5 MG/ML Ampul IV.PUSH ONE (14:21)
[2017-11-08] MEDS ORDERED: Morphine Inj 4 MG/ML Vial IV.PUSH PRN ×2 (14:21→14:45)
[2017-11-08] MEDS ORDERED: Morphine Inj 4 MG/ML Vial IV.PUSH ONE ×2 (14:45)
--- NOTE | 2017-11-08 14:54 | P.PNPAL ---
Reason for Visit Reason for visit: a. To assist with evaluation and management of symptoms including: pain, dyspnea. b. To assist medical decision maker(s) with: better understanding of current medical conditions; weighing benefits/burdens of medical treatment options; making medical treatment decisions. Subjective Subjective/Interval History: Palliative care was asked to meet with family to further clarify treatment goals. and son also requested visit. Met with , Lacey and son Michael in consult room. They are open to conversation, medical update provided. They seem to understand poor prognosis and verbalizes his ongoing decline. She understands patient is declining, will likely require reintubation if they desire continued aggressive care. Family indicates patient has been asking to go home for many weeks. They do not think he understands how ill he is and tells me he is becoming less responsive. They do not want me to speak with him asa they think this will just scare him and create undo anxiety. Patient was minimally responsive while I was in the room. Patient has had worsening respiratory status with new left pneumonia. On BiPAP with pressure 15 and 50% FiO2. Will likely need reintubation. He is hypotensive. Tmax 100.5. Pulse 100. Hemoglobin 8.0, WBC 1.2, platelets 35. Recent cultures no gorwth in 48 hours. Case discussed with nursing staff and Dr. Moore. . Family/Friend Interactions: After lengthy meeting with and son. They left to go talk and to call other family members. Upon their return nurse Quintanilla advises they have decided to transition to comfort measures with compassionate withdrawal of BiPAP to keep him comfortable now for whatever time he has left. Anticipatory guidance provided. Family is appropriately tearful. They wish to stay with the patient and hope for his peace and comfort now. NurseSocorro present for conversation. Advance Directives Living Will: Never completed Health Care Surrogate: Never completed Durable Power of Manager Fire: Never completed Health Care Surrogate Name and Number: HCP: Bina Clinton [phone] Significant change in goals:: Family has elected to transition to comfort measures with withdrawal of BiPAP. They have elected NO CODE and do not want him reintubated. Objective Vital Signs: Vital Signs 11/07/17 14:53 11/07/17 15:59 11/07/17 16:00 Temperature 98.7 F Pulse Rate 81 Respiratory Rate 31 H Blood Pressure 131/89 Pulse Oximetry 96 94 L 95 11/07/17 16:04 11/07/17 18:00 11/07/17 19:52 Temperature Pulse Rate 85 90 94 H Respiratory Rate 14 28 H Blood Pressure Pulse Oximetry 97 11/07/17 20:00 11/07/17 22:00 11/07/17 23:30 Temperature 98.7 F Pulse Rate 96 H 102 H 92 H Respiratory Rate 25 H 25 H Blood Pressure 126/82 Pulse Oximetry 99 11/08/17 00:00 11/08/17 01:06 11/08/17 02:00 Temperature 98.9 F Pulse Rate 98 H 88 Respiratory Rate 37 H Blood Pressure 89/56 L Pulse Oximetry 96 95 11/08/17 03:29 11/08/17 04:00 11/08/17 06:00 Temperature 98.5 F Pulse Rate 87 84 88 Respiratory Rate 27 H 20 Blood Pressure 85/56 L Pulse Oximetry 98 98 11/08/17 07:00 11/08/17 07:29 11/08/17 08:00 Temperature 100.5 F H Pulse Rate 80 84 86 Respiratory Rate 21 18 21 Blood Pressure 92/61 L 82/53 L Pulse Oximetry 99 100 99 11/08/17 09:06 11/08/17 10:00 11/08/17 11:00 Temperature Pulse Rate 83 95 H 95 H Respiratory Rate 22 24 18 Blood Pressure 83/56 L 94/62 L 115/72 Pulse Oximetry 99 96 96 11/08/17 11:39 11/08/17 11:58 11/08/17 12:00 Temperature 99.7 F H Pulse Rate 106 H 101 H Respiratory Rate 27 H 18 18 Blood Pressure 113/68 Pulse Oximetry 99 Intake & Output 11/07/17 11/08/17 11/08/17 18:59 06:59 18:59 Intake Total 781 / 781 2102.925 / 2102.925 304.850 / 304.850 Output Total 4541 / 4541 825 / 825 Balance -3760 / -3760 1277.925 / 1277.925 304.850 / 304.850 Weight 87.6 kg Intake: IV 300 / 300 2102.925 / 2102.925 304.850 / 304.850 SoluMEDROL Inj 5 MG D5W Inj 3.8 3.925 / 3.925 3.925 / 3.925 ML Amphotericin B Conv. Inj 0. 1 MG In Bag/Syringe 1 EACH @ As Directed IT MoWeFr KATHERINE Rx#: [id number] SoluMEDROL Inj 5 MG D5W Inj 0.8 0.925 / 0.925 ML In Bag/Syringe 1 EACH @ As Directed IT MoWeFr KATHERINE Rx#: [id number] Ambisome Inj 481.5 MG In D5W 640 / 640 Inj 320 ML @ 125 mls/hr IV.SIG Q24H KATHERINE Rx#:[id number] Precedex Inj 200 MCG In NS Inj 104 / 104 50 ML @ 0.2 MCG/KG/HR 4.72 mls/ hr IV.SIG TITRATE PRN Rx#: [id number] Diflucan 400 mg Premix Bag 400 400 / 400 ML @ 100 mls/hr IV.SIG Q24H KATHERINE Rx#:[id number] Primaxin Inj 500 MG In NS Inj 300 / 300 100 / 100 100 ML @ 200 mls/hr IV.SIG Q6HR KATHERINE Rx#:[id number] Zosyn 4.5 GM Premix 4.5 gm In 100 / 100 100 ml @ 200 mls/hr IV.SIG Q6H KATHERINE Rx#:[id number] KCl 20 mEq Premix Inj 20 meq In 300 / 300 100 / 100 100 / 100 100 ml @ 50 mls/hr IV.SIG Q2H PRN Rx#:[id number] Vancomycin Inj 1,000 MG In NS 250 / 250 Inj 250 ML @ 250 mls/hr IV.SIG ONCE ONE Rx#:[id number] Keppra Inj 500 MG In NS Inj 100 105 / 105 ML @ 400 mls/hr IV.SIG Q12H KATHERINE Rx#:[id number] Oral 0 / 0 Intake (Blood Product) Amt 481 / 481 Plt Pheresis A Leukoreduced 286 / 286 Unit [id number] Plt Pheresis C Leukoreduced 195 / 195 Unit [id number] Output: Urine 2250 / 2250 Stool 0 / 0 Urine Amount (Catheter) 2250 / 2250 800 / 800 Condom 2250 / 2250 800 / 800 Intracranial Drainage Left Temporoparietal Other: # Voids 1 Date of Last Bowel Movement 10/30/17 10/30/1718 # Bowel Movements 0 Physical Exam: CONSTITUTIONAL/GENERAL: This is an critically ill man, on BiPAP. Lethargic. TUBES/LINES/DRAINS: Ventriculostomy, BiPAP, PIV, catheter, SCDs SKIN: Skin temperature warm, febrile. HEAD: Ventric. EYES: Eyes closed. ENT: Moist oral mucosa. NECK: Trachea midline. CARDIOVASCULAR: Irregular heart sounds. RESPIRATORY/CHEST: Mildly labored respirations on BiPAP. GASTROINTESTINAL: Abdomen soft, non-tender, nondistended. No guarding. Bowel sounds present. GENITOURINARY: Without palpable bladder distension. MUSCULOSKELETAL: Extremities with edema. NEUROLOGICAL: Lethargic, stirs slightly to voice. PSYCHIATRIC: No obvious anxiety/depression. no apparent hallucinations or other psychotic thought process. Diagnostic Tests Laboratory: Laboratory Results - last 72 hr 11/05/17 11/06/17 11/06/17 23:51 06:06 06:46 WBC 2.0 L RBC 3.09 L Hgb 9.1 L Hct 27.2 L MCV 88.2 MCH 29.4 MCHC 33.3 RDW 19.2 H Plt Count 32 L MPV 9.4 Prelim Diff (Auto) Manual diff required WBC Differential Manual diff final Seg Neuts % (Manual) 76 H Band Neuts % (Manual) 10 H Lymphocytes % (Manual) 9 Monocytes % (Manual) 2 Metamyelocytes % (Man) Myelocytes % (Man) 3 H Abs Neuts (Manual) 1.8 Nucleated RBCs/100 WBC 8 H Differential Comment . Toxic Granulation Dohle Bodies Platelet Estimate Low L Platelet Morphology Normal Tear Drop Cells Ovalocytes 1+ H PT INR APTT Fibrinogen Puncture Site Patient Temperature O2 Saturation ABG pH ABG pCO2 ABG pO2 ABG HCO3 ABG O2 Content ABG Base Excess ABG Methemoglobin Vijay Test Hemoglobin Carboxyhemoglobin O2 Delivery Device Liter Flow Vent Setting Inspired O2 Critical Value Sodium Potassium Chloride Carbon Dioxide Anion Gap BUN Creatinine Estimated GFR POC Glucose 268 H 176 H Random Glucose Calcium Phosphorus Magnesium Iron TIBC % Saturation Ferritin Total Bilirubin AST ALT Alkaline Phosphatase Total Protein Albumin Vitamin B12 Folate CSF Volume (1) CSF Supernat Color (1) CSF Gross Blood (1) CSF WBC (1) CSF RBC (1) CSF Neutrophils % CSF Monocytes % Bld Prod Order Comment 11/06/17 11/06/17 11/06/17 06:46 06:46 07:59 WBC RBC Hgb Hct MCV MCH MCHC RDW Plt Count MPV Prelim Diff (Auto) WBC Differential Seg Neuts % (Manual) Band Neuts % (Manual) Lymphocytes % (Manual) Monocytes % (Manual) Metamyelocytes % (Man) Myelocytes % (Man) Abs Neuts (Manual) Nucleated RBCs/100 WBC Differential Comment Toxic Granulation Dohle Bodies Platelet Estimate Platelet Morphology Tear Drop Cells Ovalocytes PT INR APTT Fibrinogen Puncture Site Patient Temperature O2 Saturation ABG pH ABG pCO2 ABG pO2 ABG HCO3 ABG O2 Content ABG Base Excess ABG Methemoglobin Vijay Test Hemoglobin Carboxyhemoglobin O2 Delivery Device Liter Flow Vent Setting Inspired O2 Critical Value Sodium 152 H Potassium 2.4 L* Chloride 116 H Carbon Dioxide 24.7 Anion Gap 11 BUN 46 H Creatinine 0.64 Estimated GFR Greater than 89 POC Glucose Random Glucose 151 H Calcium 8.3 L Phosphorus 3.2 Magnesium 1.8 Iron 37 L TIBC 213 L % Saturation 17.4 L Ferritin 4525 H Total Bilirubin 1.3 H AST 29 ALT 76 Alkaline Phosphatase 124 H Total Protein 5.4 L D Albumin 2.0 L Vitamin B12 519 Folate 8.7 CSF Volume (1) CSF Supernat Color (1) CSF Gross Blood (1) CSF WBC (1) CSF RBC (1) CSF Neutrophils % CSF Monocytes % Bld Prod Order Comment 11/06/17 11/06/17 11/06/17 11:40 17:50 18:26 WBC RBC Hgb Hct MCV MCH MCHC RDW Plt Count MPV Prelim Diff (Auto) WBC Differential Seg Neuts % (Manual) Band Neuts % (Manual) Lymphocytes % (Manual) Monocytes % (Manual) Metamyelocytes % (Man) Myelocytes % (Man) Abs Neuts (Manual) Nucleated RBCs/100 WBC Differential Comment Toxic Granulation Dohle Bodies Platelet Estimate Platelet Morphology Tear Drop Cells Ovalocytes PT INR APTT Fibrinogen Puncture Site Patient Temperature O2 Saturation ABG pH ABG pCO2 ABG pO2 ABG HCO3 ABG O2 Content ABG Base Excess ABG Methemoglobin Vijay Test Hemoglobin Carboxyhemoglobin O2 Delivery Device Liter Flow Vent Setting Inspired O2 Critical Value Sodium Potassium Chloride Carbon Dioxide Anion Gap BUN Creatinine Estimated GFR POC Glucose 301 H 212 H Random Glucose Calcium Phosphorus Magnesium Iron TIBC % Saturation Ferritin Total Bilirubin AST ALT Alkaline Phosphatase Total Protein Albumin Vitamin B12 Folate CSF Volume (1) 7.0 CSF Supernat Color (1) Hemolyzed A CSF Gross Blood (1) 4+ A CSF WBC (1) 202 H CSF RBC (1) 20016 H CSF Neutrophils % 99 CSF Monocytes % 1 Bld Prod Order Comment 11/06/17 11/07/17 11/07/17 23:27 06:47 06:47 WBC 1.5 L RBC 2.76 L Hgb 8.1 L Hct 24.5 L MCV 88.8 MCH 29.5 MCHC 33.2 RDW 19.4 H Plt Count 31 L MPV 9.8 Prelim Diff (Auto) Manual diff required WBC Differential Manual diff final Seg Neuts % (Manual) 71 H Band Neuts % (Manual) 18 H Lymphocytes % (Manual) 9 Monocytes % (Manual) 1 Metamyelocytes % (Man) 1 Myelocytes % (Man) Abs Neuts (Manual) 1.4 L Nucleated RBCs/100 WBC 9 H Differential Comment . Toxic Granulation Dohle Bodies Platelet Estimate Low L Platelet Morphology Normal Tear Drop Cells Ovalocytes PT INR APTT Fibrinogen Puncture Site Patient Temperature O2 Saturation ABG pH ABG pCO2 ABG pO2 ABG HCO3 ABG O2 Content ABG Base Excess ABG Methemoglobin Vijay Test Hemoglobin Carboxyhemoglobin O2 Delivery Device Liter Flow Vent Setting Inspired O2 Critical Value Sodium 154 H Potassium 3.3 L D Chloride 120 H Carbon Dioxide 22.6 Anion Gap 11 BUN 41 H Creatinine 0.58 L Estimated GFR Greater than 89 POC Glucose 240 H Random Glucose 188 H Calcium 8.0 L Phosphorus 2.9 Magnesium 1.8 Iron TIBC % Saturation Ferritin Total Bilirubin 1.3 H AST 23 ALT 66 Alkaline Phosphatase 111 Total Protein 5.0 L Albumin 1.8 L Vitamin B12 Folate CSF Volume (1) CSF Supernat Color (1) CSF Gross Blood (1) CSF WBC (1) CSF RBC (1) CSF Neutrophils % CSF Monocytes % Bld Prod Order Comment 11/07/17 11/07/17 11/07/17 10:26 11:00 11:00 WBC RBC Hgb Hct MCV MCH MCHC RDW Plt Count MPV Prelim Diff (Auto) WBC Differential Seg Neuts % (Manual) Band Neuts % (Manual) Lymphocytes % (Manual) Monocytes % (Manual) Metamyelocytes % (Man) Myelocytes % (Man) Abs Neuts (Manual) Nucleated RBCs/100 WBC Differential Comment Toxic Granulation Dohle Bodies Platelet Estimate Platelet Morphology Tear Drop Cells Ovalocytes PT 12.3 H INR 1.2 APTT 20.3 L Fibrinogen 452 H Puncture Site Patient Temperature O2 Saturation ABG pH ABG pCO2 ABG pO2 ABG HCO3 ABG O2 Content ABG Base Excess ABG Methemoglobin Vijay Test Hemoglobin Carboxyhemoglobin O2 Delivery Device Liter Flow Vent Setting Inspired O2 Critical Value Sodium Potassium 3.5 Chloride Carbon Dioxide Anion Gap BUN Creatinine Estimated GFR POC Glucose Random Glucose Calcium Phosphorus Magnesium Iron TIBC % Saturation Ferritin Total Bilirubin AST ALT Alkaline Phosphatase Total Protein Albumin Vitamin B12 Folate CSF Volume (1) CSF Supernat Color (1) CSF Gross Blood (1) CSF WBC (1) CSF RBC (1) CSF Neutrophils % CSF Monocytes % Bld Prod Order Comment 11/07/17 11/07/17 11/07/17 11:15 11:30 11:59 WBC RBC Hgb Hct MCV MCH MCHC RDW Plt Count MPV Prelim Diff (Auto) WBC Differential Seg Neuts % (Manual) Band Neuts % (Manual) Lymphocytes % (Manual) Monocytes % (Manual) Metamyelocytes % (Man) Myelocytes % (Man) Abs Neuts (Manual) Nucleated RBCs/100 WBC Differential Comment Toxic Granulation Dohle Bodies Platelet Estimate Platelet Morphology Tear Drop Cells Ovalocytes PT INR APTT Fibrinogen Puncture Site Right radial Cancelled Patient Temperature 98.6 Cancelled O2 Saturation 89 L* Cancelled ABG pH 7.52 H* Cancelled ABG pCO2 30 L Cancelled ABG pO2 59 L* Cancelled ABG HCO3 24 Cancelled ABG O2 Content 10.6 L Cancelled ABG Base Excess 1.4 Cancelled ABG Methemoglobin 1.1 Cancelled Vijay Test Present Cancelled Hemoglobin 8.5 L Cancelled Carboxyhemoglobin 2.4 Cancelled O2 Delivery Device Venti mask Cancelled Liter Flow 6.00 Cancelled Vent Setting Cancelled Inspired O2 50 Cancelled Critical Value Yes Cancelled Sodium Potassium Chloride Carbon Dioxide Anion Gap BUN Creatinine Estimated GFR POC Glucose 211 H Random Glucose Calcium Phosphorus Magnesium Iron TIBC % Saturation Ferritin Total Bilirubin AST ALT Alkaline Phosphatase Total Protein Albumin Vitamin B12 Folate CSF Volume (1) CSF Supernat Color (1) CSF Gross Blood (1) CSF WBC (1) CSF RBC (1) CSF Neutrophils % CSF Monocytes % Bld Prod Order Comment 11/07/17 11/07/17 11/08/17 17:10 22:11 00:38 WBC RBC Hgb Hct MCV MCH MCHC RDW Plt Count MPV Prelim Diff (Auto) WBC Differential Seg Neuts % (Manual) Band Neuts % (Manual) Lymphocytes % (Manual) Monocytes % (Manual) Metamyelocytes % (Man) Myelocytes % (Man) Abs Neuts (Manual) Nucleated RBCs/100 WBC Differential Comment Toxic Granulation Dohle Bodies Platelet Estimate Platelet Morphology Tear Drop Cells Ovalocytes PT INR APTT Fibrinogen Puncture Site Patient Temperature O2 Saturation ABG pH ABG pCO2 ABG pO2 ABG HCO3 ABG O2 Content ABG Base Excess ABG Methemoglobin Vijay Test Hemoglobin Carboxyhemoglobin O2 Delivery Device Liter Flow Vent Setting Inspired O2 Critical Value Sodium Potassium Chloride Carbon Dioxide Anion Gap BUN Creatinine Estimated GFR POC Glucose 205 H 245 H 238 H Random Glucose Calcium Phosphorus Magnesium Iron TIBC % Saturation Ferritin Total Bilirubin AST ALT Alkaline Phosphatase Total Protein Albumin Vitamin B12 Folate CSF Volume (1) CSF Supernat Color (1) CSF Gross Blood (1) CSF WBC (1) CSF RBC (1) CSF Neutrophils % CSF Monocytes % Bld Prod Order Comment 11/08/17 11/08/17 11/08/17 06:34 08:30 10:05 WBC 1.2 L RBC 2.72 L Hgb 8.0 L Hct 24.6 L MCV 90.7 MCH 29.5 MCHC 32.6 RDW 19.5 H Plt Count 35 L MPV 9.4 Prelim Diff (Auto) Manual diff required WBC Differential Manual diff final Seg Neuts % (Manual) 50 Band Neuts % (Manual) 33 H Lymphocytes % (Manual) 9 Monocytes % (Manual) 1 Metamyelocytes % (Man) 5 H Myelocytes % (Man) 2 H Abs Neuts (Manual) 1.1 L Nucleated RBCs/100 WBC 5 H Differential Comment . Toxic Granulation 2+ H Dohle Bodies Present H Platelet Estimate Low L Platelet Morphology Normal Tear Drop Cells 1+ H Ovalocytes PT INR APTT Fibrinogen Puncture Site Patient Temperature O2 Saturation ABG pH ABG pCO2 ABG pO2 ABG HCO3 ABG O2 Content ABG Base Excess ABG Methemoglobin Vijay Test Hemoglobin Carboxyhemoglobin O2 Delivery Device Liter Flow Vent Setting Inspired O2 Critical Value Sodium 154 H Potassium 3.3 L Chloride 119 H Carbon Dioxide 20.2 L Anion Gap 15 BUN 39 H Creatinine 0.71 Estimated GFR Greater than 89 POC Glucose 298 H Random Glucose 249 H Calcium 8.4 L Phosphorus Magnesium Iron TIBC % Saturation Ferritin Total Bilirubin 1.4 H AST 39 H ALT 55 Alkaline Phosphatase 109 Total Protein 5.4 L Albumin 1.8 L Vitamin B12 Folate CSF Volume (1) CSF Supernat Color (1) CSF Gross Blood (1) CSF WBC (1) CSF RBC (1) CSF Neutrophils % CSF Monocytes % Bld Prod Order Comment 11/08/17 12:21 WBC RBC Hgb Hct MCV MCH MCHC RDW Plt Count MPV Prelim Diff (Auto) WBC Differential Seg Neuts % (Manual) Band Neuts % (Manual) Lymphocytes % (Manual) Monocytes % (Manual) Metamyelocytes % (Man) Myelocytes % (Man) Abs Neuts (Manual) Nucleated RBCs/100 WBC Differential Comment Toxic Granulation Dohle Bodies Platelet Estimate Platelet Morphology Tear Drop Cells Ovalocytes PT INR APTT Fibrinogen Puncture Site Patient Temperature O2 Saturation ABG pH ABG pCO2 ABG pO2 ABG HCO3 ABG O2 Content ABG Base Excess ABG Methemoglobin Vijay Test Hemoglobin Carboxyhemoglobin O2 Delivery Device Liter Flow Vent Setting Inspired O2 Critical Value Sodium Potassium Chloride Carbon Dioxide Anion Gap BUN Creatinine Estimated GFR POC Glucose 265 H Random Glucose Calcium Phosphorus Magnesium Iron TIBC % Saturation Ferritin Total Bilirubin AST ALT Alkaline Phosphatase Total Protein Albumin Vitamin B12 Folate CSF Volume (1) CSF Supernat Color (1) CSF Gross Blood (1) CSF WBC (1) CSF RBC (1) CSF Neutrophils % CSF Monocytes % Bld Prod Order Comment Result Diagrams: 11/08/17 08:30 11/08/17 10:05 Microbiology: Microbiology 11/06/17 17:50 Gram Stain - Final Shunt Fluid CSF Culture - Preliminary No growth in 48 hours 10/30/17 Unknown Fungal Smear - Final Cerebral Spinal Fluid - Shunt Fluid No fungal elements seen Fungal Culture - Preliminary No growth in 1 week 11/03/17 11:30 Gram Stain - Final Shunt Fluid CSF Culture - Final No growth in 72 hours (aerobically and anaerobically) Imaging: Head CT 10/26/17 00:00 CONCLUSION: Slight interval increase in size of hemorrhage in the left paramedian posterior fossa. Liver Ultrasound 10/27/17 00:00 CONCLUSION: 1. Simple right renal cyst. 2. Otherwise normal examination of the abdomen. Chest X-Ray 11/08/17 00:00 CONCLUSION: 1. Persistent left basilar opacification, likely a combination of pleural fluid and airspace disease. 2. Subtle somewhat nodular opacity in the central right lower lung. This may represent an infectious process, though follow-up is recommended to ensure resolution. Procedures: 09/13/17-right frontal catracho hole with placement of a ventriculostomy catheter 09/13/17-posterior tactic image guided suboccipital craniectomy, C1 laminectomy , microsurgical resection of metastatic carcinoma, duraplasty 09/22/17-removal of ventriculostomy catheter 09/24/2017-reexploration of the posterior fossa craniectomy, evacuation of cerebellar clot, duraplasty with 2 regarding enterocele, placement of epidural drain 09/24/2017-intubated 09/29/17-EVD for base of skull CSF leak versus seroma 10/06/17-extubated 10/10/17-Gentry hole with ventriculostomy placement for CSF leak, with central line placement 10/12/17-extubated 10/30/17-left frontal catracho hole with placement of ventriculostomy catheter Assessment and Plan - Disease Oriented Problem List (1) Hypertension (2) Paroxysmal atrial flutter (3) History of bladder cancer (4) Status post urinary system surgery Comment: bladder cancer resection (5) Respiratory failure (6) Pneumonia - Symptom Scale (1) Pain 0-10 Scale: Unable to quantify Comment: Multiple surgical inteventions during this hospitalization. Patient has a braing tumor, at risk for headaches. (2) Decreased oral intake 0-10 Scale: Unable to quantify (3) Dyspnea 0-10 Scale: Unable to quantify Pertinent Non-Medical Issues: Psychosocial: Patient was born and raised in [place]. Patient is , lives with his of 23 years. He has 2 adult children, a daughter Sydney Clinton who lives in [place] and a son Michael Clinton who lives locally. Patient works for a [employer] and [employer] business. Spiritual: Per she has taken him to [employer] several times, but worship is not a big part of his life Legal:Never completed advance directives Ethical issues impacting care:None identified at this time Important Contacts: Spouse-Lacey Clinton-[phone] Prognosis: Mr Clinton is a 52 years old patient with a past medical history of atrial flutter status post ablation, systolic heart failure, hypertension, and history of bladder cancer status post chemoradiation therapy in 2016. Patient was brought to the emergency department on 09/11/17 after he slipped and fell at work. Patient fell on the left side of his head, face and had a laceration to the lift upper eyelid. Clinical course complicated with thrombocytopenia, bleeding around ventriculostomy, CSF infection and decreased oral intake. Given ongoing comorbidities, patient remains at high risk for further complications, deterioration and decline. Code Status: No Code DNR Plan: * Legal decision maker: Patient is lethargic, not able to participate in medical decision making. According to [place] statutes, health care proxy decision making falls to his Lacey Clinton. * Goals: Family has elected to transition to comfort focused care with compassionate withdrawal of BiPAP given worsening respiratory status. Declined hospice and certified registered nurse practitioner at this time. Will discuss hospice services again in AM if he survives overnight. * NO CODE * Palliative care will continue to follow the patient during hospital course as condition evolves, to assist patient/decision-maker with understanding of their medical conditions, weighing benefits/burdens of treatment options, for clarification of goals of treatment. Additionally will assist with any symptoms of palliative concern. SYMPTOMS: * Pain:Patient has a brain tumor, underwent suboccipital craniectomy, C1 laminectomy and resection of metastatic carcinoma. Patient has had multiple surgical interventions. He may have headaches and is at risk for pain. Orders written for comfort meds, reviewed plan with and son. * Decreased oral intake:Per patient's , patient has had decreased oral intake due to decreased appetite and he has lost approximately 40 pounds during this hospitalization. Speech therapy consulted recommended mechanical soft diet and nectar thick fluids. Patient is already on dexamethasone 3 mg q 6 hrs ATC. * Dyspnea: worsening respirtory status with increasing oxygen needs, on BiPAP. Orders written for comfort measures and withdrawal of BiPAP per family wishes. Attestation Attestation: To help prompt me to consider important information that might be impacting today's encounter and assessment, information from prior notes written by myself or my colleagues may have been "brought forward" into today's note. My signature on this note, however, is an attestation that I personally performed the exam, history, and/or decision-making noted today, and, unless otherwise indicated, the interactions with patient, family, and staff as well as the review of records all occurred today. I also attest that the listed assessment and stated plan reflect my best clinical judgment today based on the combination of historical information, prior notes, and today's exam/ interactions. When time spent is documented, it refers only to time spent today by the signer, or if indicated, combined time spent today by collaborating physician/nurse practitioner.
[2017-11-08] MEDS: Morphine Inj 4 MG/ML Vial IV.PUSH SCH ×2 (15:59→19:56)
--- NOTE | 2017-11-08 17:49 | P.PNONC ---
Subjective Interval history: pt is sedated. Was taken off of BiPAP earlier today after meeting with palliative care. son at bedside Objective Vital Signs/Intake & Output: Vital Signs 11/07/17 18:00 11/07/17 19:52 11/07/17 20:00 Temperature 98.7 F Pulse Rate 90 94 H 96 H Respiratory Rate 28 H 25 H Blood Pressure 126/82 Pulse Oximetry 97 99 11/07/17 22:00 11/07/17 23:30 11/08/17 00:00 Temperature 98.9 F Pulse Rate 102 H 92 H 98 H Respiratory Rate 25 H 37 H Blood Pressure 89/56 L Pulse Oximetry 96 11/08/17 01:06 11/08/17 02:00 11/08/17 03:29 Temperature Pulse Rate 88 87 Respiratory Rate 27 H Blood Pressure Pulse Oximetry 95 98 11/08/17 04:00 11/08/17 06:00 11/08/17 07:00 Temperature 98.5 F Pulse Rate 84 88 80 Respiratory Rate 20 21 Blood Pressure 85/56 L 92/61 L Pulse Oximetry 98 99 11/08/17 07:29 11/08/17 08:00 11/08/17 09:06 Temperature 100.5 F H Pulse Rate 84 86 83 Respiratory Rate 18 21 22 Blood Pressure 82/53 L 83/56 L Pulse Oximetry 100 99 99 11/08/17 10:00 11/08/17 11:00 11/08/17 11:39 Temperature Pulse Rate 95 H 95 H 106 H Respiratory Rate 24 18 27 H Blood Pressure 94/62 L 115/72 Pulse Oximetry 96 96 11/08/17 11:58 11/08/17 12:00 11/08/17 14:00 Temperature 99.7 F H Pulse Rate 101 H 100 H Respiratory Rate 18 18 28 H Blood Pressure 113/68 111/67 Pulse Oximetry 99 96 11/08/17 16:00 11/08/17 16:49 Temperature Pulse Rate Respiratory Rate 28 H 20 Blood Pressure Pulse Oximetry Intake & Output 11/07/17 11/08/17 11/08/17 18:59 06:59 18:59 Intake Total 781 / 781 2102.925 / 2102.925 454.850 / 454.850 Output Total 4541 / 4541 825 / 825 Balance -3760 / -3760 1277.925 / 1277.925 454.850 / 454.850 Weight 87.6 kg Intake: IV 300 / 300 2102.925 / 2102.925 454.850 / 454.850 SoluMEDROL Inj 5 MG D5W Inj 3.8 3.925 / 3.925 3.925 / 3.925 ML Amphotericin B Conv. Inj 0. 1 MG In Bag/Syringe 1 EACH @ As Directed IT MoWeFr KATHERINE Rx#: [id number] SoluMEDROL Inj 5 MG D5W Inj 0.8 0.925 / 0.925 ML In Bag/Syringe 1 EACH @ As Directed IT MoWeFr KATHERINE Rx#: [id number] Ambisome Inj 481.5 MG In D5W 640 / 640 Inj 320 ML @ 125 mls/hr IV.SIG Q24H KATHERINE Rx#:[id number] Precedex Inj 200 MCG In NS Inj 104 / 104 45 / 45 50 ML @ 0.2 MCG/KG/HR 4.72 mls/ hr IV.SIG TITRATE PRN Rx#: [id number] Diflucan 400 mg Premix Bag 400 400 / 400 ML @ 100 mls/hr IV.SIG Q24H KATHERINE Rx#:[id number] Primaxin Inj 500 MG In NS Inj 300 / 300 100 / 100 100 ML @ 200 mls/hr IV.SIG Q6HR KATHERINE Rx#:[id number] Zosyn 4.5 GM Premix 4.5 gm In 100 / 100 100 ml @ 200 mls/hr IV.SIG Q6H KATHERINE Rx#:[id number] KCl 20 mEq Premix Inj 20 meq In 300 / 300 100 / 100 100 / 100 100 ml @ 50 mls/hr IV.SIG Q2H PRN Rx#:[id number] Vancomycin Inj 1,000 MG In NS 250 / 250 Inj 250 ML @ 250 mls/hr IV.SIG ONCE ONE Rx#:[id number] Keppra Inj 500 MG In NS Inj 100 105 / 105 105 / 105 ML @ 400 mls/hr IV.SIG Q12H KATHERINE Rx#:[id number] Oral 0 / 0 Intake (Blood Product) Amt 481 / 481 Plt Pheresis A Leukoreduced 286 / 286 Unit [id number] Plt Pheresis C Leukoreduced 195 / 195 Unit [id number] Output: Urine 2250 / 2250 Stool 0 / 0 Urine Amount (Catheter) 2250 / 2250 800 / 800 Condom 2250 / 2250 800 / 800 Intracranial Drainage 41 / 41 25 / 25 Left Temporoparietal 41 / 41 25 / 25 Other: # Voids 1 Date of Last Bowel Movement 10/30/17 10/30/17 10/30/17 # Bowel Movements 0 Result Diagrams: 11/08/17 08:30 11/08/17 10:05 Laboratory Results: Laboratory Results - last 24 hr 11/07/17 11/07/17 11/08/17 11:30 22:11 00:38 WBC RBC Hgb Hct MCV MCH MCHC RDW Plt Count MPV Prelim Diff (Auto) WBC Differential Seg Neuts % (Manual) Band Neuts % (Manual) Lymphocytes % (Manual) Monocytes % (Manual) Metamyelocytes % (Man) Myelocytes % (Man) Abs Neuts (Manual) Nucleated RBCs/100 WBC Differential Comment Toxic Granulation Dohle Bodies Platelet Estimate Platelet Morphology Tear Drop Cells Puncture Site Cancelled Patient Temperature Cancelled O2 Saturation Cancelled ABG pH Cancelled ABG pCO2 Cancelled ABG pO2 Cancelled ABG HCO3 Cancelled ABG O2 Content Cancelled ABG Base Excess Cancelled ABG Methemoglobin Cancelled Vijay Test Cancelled Hemoglobin Cancelled Carboxyhemoglobin Cancelled O2 Delivery Device Cancelled Liter Flow Cancelled Vent Setting Cancelled Inspired O2 Cancelled Critical Value Cancelled Sodium Potassium Chloride Carbon Dioxide Anion Gap BUN Creatinine Estimated GFR POC Glucose 245 H 238 H Random Glucose Calcium Total Bilirubin AST ALT Alkaline Phosphatase Total Protein Albumin 11/08/17 11/08/17 11/08/17 06:34 08:30 10:05 WBC 1.2 L RBC 2.72 L Hgb 8.0 L Hct 24.6 L MCV 90.7 MCH 29.5 MCHC 32.6 RDW 19.5 H Plt Count 35 L MPV 9.4 Prelim Diff (Auto) Manual diff required WBC Differential Manual diff final Seg Neuts % (Manual) 50 Band Neuts % (Manual) 33 H Lymphocytes % (Manual) 9 Monocytes % (Manual) 1 Metamyelocytes % (Man) 5 H Myelocytes % (Man) 2 H Abs Neuts (Manual) 1.1 L Nucleated RBCs/100 WBC 5 H Differential Comment . Toxic Granulation 2+ H Dohle Bodies Present H Platelet Estimate Low L Platelet Morphology Normal Tear Drop Cells 1+ H Puncture Site Patient Temperature O2 Saturation ABG pH ABG pCO2 ABG pO2 ABG HCO3 ABG O2 Content ABG Base Excess ABG Methemoglobin Vijay Test Hemoglobin Carboxyhemoglobin O2 Delivery Device Liter Flow Vent Setting Inspired O2 Critical Value Sodium 154 H Potassium 3.3 L Chloride 119 H Carbon Dioxide 20.2 L Anion Gap 15 BUN 39 H Creatinine 0.71 Estimated GFR Greater than 89 POC Glucose 298 H Random Glucose 249 H Calcium 8.4 L Total Bilirubin 1.4 H AST 39 H ALT 55 Alkaline Phosphatase 109 Total Protein 5.4 L Albumin 1.8 L 11/08/17 12:21 WBC RBC Hgb Hct MCV MCH MCHC RDW Plt Count MPV Prelim Diff (Auto) WBC Differential Seg Neuts % (Manual) Band Neuts % (Manual) Lymphocytes % (Manual) Monocytes % (Manual) Metamyelocytes % (Man) Myelocytes % (Man) Abs Neuts (Manual) Nucleated RBCs/100 WBC Differential Comment Toxic Granulation Dohle Bodies Platelet Estimate Platelet Morphology Tear Drop Cells Puncture Site Patient Temperature O2 Saturation ABG pH ABG pCO2 ABG pO2 ABG HCO3 ABG O2 Content ABG Base Excess ABG Methemoglobin Vijay Test Hemoglobin Carboxyhemoglobin O2 Delivery Device Liter Flow Vent Setting Inspired O2 Critical Value Sodium Potassium Chloride Carbon Dioxide Anion Gap BUN Creatinine Estimated GFR POC Glucose 265 H Random Glucose Calcium Total Bilirubin AST ALT Alkaline Phosphatase Total Protein Albumin Culture Results: Microbiology 11/06/17 17:50 Gram Stain - Final Shunt Fluid CSF Culture - Preliminary No growth in 48 hours 10/30/17 Unknown Fungal Smear - Final Cerebral Spinal Fluid - Shunt Fluid No fungal elements seen Fungal Culture - Preliminary No growth in 1 week 11/03/17 11:30 Gram Stain - Final Shunt Fluid CSF Culture - Final No growth in 72 hours (aerobically and anaerobically) Imaging Studies: Impressions Chest X-Ray 11/08/17 00:00 CONCLUSION: 1. Persistent left basilar opacification, likely a combination of pleural fluid and airspace disease. 2. Subtle somewhat nodular opacity in the central right lower lung. This may represent an infectious process, though follow-up is recommended to ensure resolution. Medications: Active Medications Generic Name Dose Route Start Last Admin Trade Name Freq PRN Reason Stop Dose Admin Artificial Tears 1 drop 10/22/17 06:00 11/08/17 13:11 Tears Naturale Opth Drops EACH EYE 1 drop Q8HR KATHERINE Administration Dexamethasone Sodium Phosphate 2 mg 11/08/17 14:00 11/08/17 13:11 Decadron Inj IV.PUSH 11/13/17 14:00 2 mg Q8HR KATHERINE Administration Diphenhydramine HCl 25 mg 10/22/17 22:30 11/08/17 00:39 Benadryl Inj IV.PUSH Not Given Q24H KATHERINE Furosemide 20 mg 11/08/17 14:21 11/08/17 16:00 Lasix Inj IV.PUSH 20 mg Q6H PRN Administration Pulmonary Congestion Levetiracetam 500 mg/ Sodium 105 mls @ 400 mls/hr 11/08/17 04:00 11/08/17 16: 49 Chloride IV.SIG Infused Q12H KATHERINE Infusion Methylprednisolone Sodium 0.925 mls @ 0 mls/hr 10/23/17 07:00 11/08/17 11:15 Succinate 5 mg/ Dextrose 0.8 IT Infused ml/ Syringe/Bag MoWeFr KATHERINE Infusion As Directed Methylprednisolone Sodium 3.925 mls @ 0 mls/hr 10/23/17 07:00 11/08/17 11:15 Succinate 5 mg/ Dextrose 3.8 IT Infused ml/ Amphotericin B 0.1 mg/ MoWeFr KATHERINE Infusion Syringe/Bag As Directed Lactulose 30 ml 10/22/17 09:00 11/03/17 09:23 Lactulose Liq PO 30 ml TID KATHERINE Administration Lorazepam 1 mg 11/08/17 16:00 11/08/17 15:59 Ativan Inj IV.PUSH 1 mg Q4HR KATHERINE Administration Morphine Sulfate 4 mg 11/08/17 16:00 11/08/17 15:59 Morphine Inj IV.PUSH 4 mg Q4HR KATHERINE Administration Ondansetron HCl 4 mg 10/22/17 00:00 11/06/17 23:14 Zofran Odt PO 4 mg Q6H PRN Administration NAUSEA/VOMITING Pantoprazole Sodium 40 mg 10/22/17 09:00 11/08/17 08:51 Protonix Inj IV.PUSH 40 mg DAILY KATHERINE Administration Sodium Chloride 2 ml 10/22/17 00:00 11/03/17 22:28 Ns Flush IV.FLUSH 2 ml UNSCH PRN Administration FLUSH AFTER IV ACCESS Sodium Chloride 1 gm 10/22/17 09:00 11/02/17 12:17 Sodium Chloride PO 1 gm TID KATHERINE Administration Objective Remarks: GENERAL: sedated. SKIN: Warm and dry. HEAD: Normocephalic. EYES: No scleral icterus. No injection or drainage. NECK: Supple, trachea midline. No JVD or lymphadenopathy. LYMPHATIC: No adenopathy. CARDIOVASCULAR: Regular rate and rhythm without murmurs. RESPIRATORY: Breath sounds labored GASTROINTESTINAL: Abdomen soft, nondistended. EXTREMITIES: No cyanosis, or edema. Assessment/Plan (1) Cerebral ventriculitis Code(s): G04.90 - Encephalitis and encephalomyelitis, unspecified Status: Acute (2) Metastatic urothelial carcinoma Code(s): C79.10 - Secondary malignant neoplasm of unspecified urinary organs Status: Chronic - Plan pt has incurable mets urinary bladder ca. He is not a candidate for chemo due to poor performance status. He is deteriorating. I have d/w coding analyst Dr Moore yesterday about his prognosis. I agree with family decision of [facility] and hospice. d/w RN sign off available prn.
[2017-11-09] MEDS: Morphine Inj 4 MG/ML Vial IV.PUSH SCH ×6 (00:13→22:13)
[2017-11-09] MEDS: Artificial Tears Opth Drops 15 ML Bottle EACH EYE SCH ×3 (06:18→22:14)
[2017-11-09] MEDS: Pantoprazole Inj 40 MG Vial IV.PUSH SCH (08:37)
--- NOTE | 2017-11-09 10:48 | P.PNIM ---
Subjective Interval history: 52-year-old male. Date of admission 09/11/2017. Past medical history includes atrial flutter status post ablation by Dr. Mantilla, systolic heart failure likely chronic ejection fraction 25%, hypertension, hyperlipidemia and history of bladder cancer status post removal with chemoradiation therapy 2015. 09/11, the patient presented to [facility] status post slip and fall outside his work earlier today. Patient hit the left side of his forehead above the left eye head and face and sustained a laceration over his left upper eyelid. Patient is on apixaban 5 mg twice daily. He went to see his primary care doctor at [facility] and was asked to come to the emergency room instead. He was brought in by EMS from there. Patient is otherwise awake and answering questions appropriately. Vital signs are stable. No history of syncopal episode of vomiting. Patient says his last tetanus shot was in last couple years. Bleeding seems to have been controlled. Upon further evaluation, patient is cleaned of a headache with no vision changes with nausea and vomiting [address] of the head revealed a mass in the left posterior fossa. MRI brain relieved with a left cerebellar mass 4.4 cm with vasogenic edema. Midline. Dr. Horvath was notified by the ED and recommended ISC admission with dexamethasone 4 mg IV every 6 hours.. His laceration was sutured with 4.0 Ethicon by the ED physician. He is currently requesting his be notified of his admission 09/12: Resting in bed in no acute distress. Plan for bedside pulmonary function test and stress echocardiogram this afternoon. CT abdomen/pelvis revealed bilateral renal cysts, tiny right ureteral stones and periaortic lymphadenopathy up to 3.9 cm. Bilateral lower lobe 3 mm pulmonary nodules noted. Patient is awake alert no acute distress clinically stable. 09/13: Proceed to OR for evaluation of brain mass. Nuclear medicine scan revealed no reversible ischemia. Ejection fraction 40%. In good spirits. 09/14: Tolerated OR yesterday without complication. Excited to be consuming water at the present time. Pain controlled. No seizures noted. 09/15: Lying comfortably in bed no distress. CT of the head ordered for today. Ventriculostomy in place drained to 80 mL in 24 hours 09/16: Breathing comfortably. No complaints. BP up, will add PO hydralazine ( Reluctant to use beta vida with resting pulse 45.) 09/17: Lying in bed, comfortable. No acute distress. Ventriculostomy output less blood-tinged but appears slightly cloudy. Output 255 mL in 24 hours. Discussed with NAKUL Mercer about slightly cloudy CSF 09/18: Sitting up in bed eating breakfast no focal deficits. CSF culture sent yesterday appears slightly blood-tinged with very slight cloudiness. EVD output 198 mL in 24 hours. Raised to -10 09/19: EVD elevated and well tolerated. Bradycradia persists, no treatment necessary per cardiology. 09/20: Currently resting in bed in no acute distress. No ongoing issues. Ventriculostomy currently at -20 cm H2O. 175 cc reddish yellow. Opaque. Very small bowel movement today 09/21: Currently afebrile. Ventriculostomy is been clamped today. One bowel movement overnight. No complaints 09/22: Complains of headache overnight. Retro-orbit. No visual changes or hallucinations. Received narcotics overnight with some relief. CT brain pending. Noted that ventriculostomy was clamped overnight. 09/23: Afebrile. Noted some currently 128. Remains fatigued. Ventriculostomy removed. 09/24: Afebrile. Headache overnight 10 worsening. Dizziness noted. Started on nicardipine drip due to hypertension. Sodium 129-132 on 2% saline drip at 50 cc an hour. 09/25: Currently resting in bed in no acute distress. Status post reexploration of the posterior fossa craniectomy, evacuation of cerebellar clot, duraplasty with DuraGuard and DuraSeal, placement of epidural drain secondary to cerebellar hemorrhage. Remains sedated on propofol and fentanyl drips. Plan for CT brain exam.. 370 cc from SCOTT overnight SS 70 09/26: acutely hypoxemic this AM. no new pulmonary secretions. CXR unchanged. ordered CT pulmonary angiogram without evidence of PE. hypoxia improved spontaneously. somewhat positive fluid balance. CT brain with persistent edema and midline shift. 09/27: Afebrile. CT pulmonary revealed no pulmonary embolism. Remains sedated on propofol and fentanyl drips. Tube feeds at goal. 09/28: no changes. no improvements. remains deeply sedated per Dr. Horvath. 09/29: remains somewhat hypoxic on elevated fio2. lungs clear to auscultation without wheezing. CXR without overt cause. may be generalized volume overload: will start to diurese. repeat head CT with improving edema. per nsgy: cleared to wean sedation. 09/30: CSF leak from base of skull. nsgy placed EVD to decompress overnight. still needs diuresis. following commands. 10/01: no changes. still intermittently following commands. fio2 down to 40%. good diuresis overnight: will need to continue. CSF culture NGTD. 10/02: Afebrile. Following commands. Tiny emesis this a.m. Tube feeds back at goal rate. CSF culture no growth today. Urine culture with gram-negative lee ann. 10/03: ICP well controlled. Osmolality acceptable. 3% saline on hold. Urine not significant organisms, convert to ceftriaxone X 2 days. 10/04: Low grade fever persists. Continue ceftriaxone while awaiting cultures. Start 2% saline. 10/05: Reduce 2% saline, osmolality acceptable. 10/06: More alert today. Moves 4 limbs to command, tracks with eyes. Osmolality acceptably concentrated and blood pressure adequately controlled. 10/07: Extubated yesterday and continues to breathe comfortably. Protects airway. Afebrile, no leukocytosis. Chest x-ray has been clear aside from minor atelectasis. Sputum culture noted. Hold off treatment for now. Adjust antibiotics per ID service. 10/10: Patient had a CSF leak from previous posterior fossa craniectomy site. He went to the OR today and underwent bur hole with ventriculostomy placement by Dr. Horvath under general anesthesia, tolerated procedure well. Patient had a central line placed by anesthesia preoperatively and in view of concern regarding neurologic status was left intubated and transferred back to ICU and placed on mechanical ventilation. Critical care reconsulted by hospitalist service for vent management. I evaluated the patient following his arrival to the ICU. At that time he was drowsy though arousable, orally intubated on mechanical ventilation. History obtained by reviewing records and discussion with nursing staff. 10/11: remains intubated. CSF growing yeast, further ID to follow. discussed with Dr. Gibbons, and will need to empirically start fluconazole and Ampho B empirically until further speciation is resulted. 10/12: Extubated 10/11. Following commands. Knows he is at the hospital. Knows it is 2017. Ventriculostomy continues to drain. Critical Care reconsult note 11/07/2017. Critical care medicine was reconsulted today for acute deterioration in respiratory status. Patient's history was reviewed as above. Patient increasingly short of breath tachypneic since a.m. a chest x-ray showed left lower lobe pneumonia. On vent mask patient continued to desaturate, ABG 7.52/30 /59. Patient was placed on 100% nonrebreather. I immediately evaluated the patient is severely tachypneic breathing about 40 breaths per minute using accessory muscles. He is willing for endotracheal intubation and mechanical ventilation if he is not improved on BiPAP. I have ordered BiPAP 03/28. Breathing treatments changed to every 4 hours scheduled. Continue Zosyn 4.5 g every 8 hours. Give single dose of vancomycin 1 g x1. We will continue amphotericin B and Diflucan per ID 11/08: Patient remains critical in respiratory failure remains on BiPAP. Overnight had issues with respiratory distress and agitation, improved after starting Precedex. Chest x-ray shows increasing left-sided infiltrate. I had a long discussion with and explained the prognosis being very poor and patient not a candidate for radiation or chemotherapy for his stage IV cancer. She expressed good understanding she is willing to talk to palliative care, she will consider hospice but currently wants to continue aggressive care and patient remains a full code. 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 MEASURES ONLY ON ATIVAN AND MORPHINE HIS VENTRICULOSTOMY TUBE HAS BEEN PULLED TODAY BY NEUROSURGERY [facility] PATIENT MAY GO WITH HOSPICE IN NEXT 24 TO 48 HOURS POOR PROGNOSIS FAMILY TO MAKE MORE DECISIONS WITH HELP OF PALLIATIVE CARE AND HOSPICE Physical Exam Vital signs: Vital Signs 11/08/17 11:00 11/08/17 11:39 11/08/17 11:58 Temperature Pulse Rate 95 H 106 H Respiratory Rate 18 27 H 18 Blood Pressure 115/72 Pulse Oximetry 96 11/08/17 12:00 11/08/17 14:00 11/08/17 16:00 Temperature 99.7 F H Pulse Rate 101 H 100 H Respiratory Rate 18 28 H 28 H Blood Pressure 113/68 111/67 Pulse Oximetry 99 96 11/08/17 16:49 11/08/17 18:34 11/08/17 20:00 Temperature Pulse Rate 119 H 119 H Respiratory Rate 20 22 Blood Pressure 109/65 Pulse Oximetry 78 L 11/08/17 22:00 11/09/17 00:00 11/09/17 02:00 Temperature Pulse Rate 126 H 123 H 125 H Respiratory Rate Blood Pressure Pulse Oximetry 11/09/17 04:00 11/09/17 06:00 11/09/17 07:15 Temperature Pulse Rate 124 H 123 H 120 H Respiratory Rate 22 Blood Pressure 98/63 L Pulse Oximetry 67 L 11/09/17 08:00 Temperature Pulse Rate 120 H Respiratory Rate Blood Pressure Pulse Oximetry Intake & Output 11/08/17 11/09/17 11/09/17 18:59 06:59 18:59 Intake Total 454.850 / 454.850 0 / 0 Output Total 290 / 290 250 / 250 Balance 164.850 / 164.850 -250 / -250 Weight 87.4 kg Intake: IV 454.850 / 454.850 SoluMEDROL Inj 5 MG D5W Inj 3.8 3.925 / 3.925 ML Amphotericin B Conv. Inj 0. 1 MG In Bag/Syringe 1 EACH @ As Directed IT [facility] KATHERINE Rx#: [id number] SoluMEDROL Inj 5 MG D5W Inj 0.8 0.925 / 0.925 ML In Bag/Syringe 1 EACH @ As Directed IT [facility] KATHERINE Rx#: [id number] Precedex Inj 200 MCG In NS Inj 45 / 45 50 ML @ 0.2 MCG/KG/HR 4.72 mls/ hr IV.SIG TITRATE PRN Rx#: [id number] Primaxin Inj 500 MG In NS Inj 100 / 100 100 ML @ 200 mls/hr IV.SIG Q6HR KATHERINE Rx#:[id number] KCl 20 mEq Premix Inj 20 meq In 100 / 100 100 ml @ 50 mls/hr IV.SIG Q2H PRN Rx#:[id number] Keppra Inj 500 MG In NS Inj 100 105 / 105 ML @ 400 mls/hr IV.SIG Q12H KATHERINE Rx#:[id number] Oral 0 / 0 Output: Stool 0 / 0 Urine Amount (Catheter) 250 / 250 250 / 250 Condom 250 / 250 250 / 250 Wound Drainage 0 / 0 Right Occipital 0 / 0 Intracranial Drainage 40 / 40 0 / 0 Left Temporoparietal 40 / 40 0 / 0 Other: Date of Last Bowel Movement 10/30/17 10/30/17 10/30/17 # Bowel Movements 0 0 Narrative: GENERAL: VERY LETHARGIC--VENTRIC IS OUT--GASPING BREATHS NOT SATURATING ABOVE 80S SKIN: Warm and dry. HEAD: Normocephalic. VENTRIC IS OUT EYES: No scleral icterus. No injection or drainage. NECK: Supple, trachea midline. No JVD or lymphadenopathy. CARDIOVASCULAR: Regular rate and rhythm without murmurs, gallops, or rubs. RESPIRATORY: Breath sounds equal bilaterally. No accessory muscle use. GASTROINTESTINAL: Abdomen soft, non-tender, nondistended. OBESE MUSCULOSKELETAL: No cyanosis, or edema. BACK: Nontender without obvious deformity. No CVA tenderness. YANG IN PLACE - Urinary Catheter Management Condom Cath placed during this visit: yes Reason for continuing: Hourly intake/output Insertion date: 10/30/17 Insertion time: 13:34 CATHETER Cath placed during this visit: yes Reason for continuing: Other continuation reason Insertion date: 10/30/17 Results - Labs CBC & Chem 7: 11/08/17 08:30 11/08/17 10:05 Laboratory Results - last 24 hr 11/08/17 11/08/17 11/08/17 08:30 10:05 12:21 WBC Differential Manual diff final Seg Neuts % (Manual) 50 Band Neuts % (Manual) 33 H Lymphocytes % (Manual) 9 Monocytes % (Manual) 1 Metamyelocytes % (Man) 5 H Myelocytes % (Man) 2 H Abs Neuts (Manual) 1.1 L Nucleated RBCs/100 WBC 5 H Toxic Granulation 2+ H Dohle Bodies Present H Platelet Estimate Low L Platelet Morphology Normal Tear Drop Cells 1+ H Sodium 154 H Potassium 3.3 L Chloride 119 H Carbon Dioxide 20.2 L Anion Gap 15 BUN 39 H Creatinine 0.71 Estimated GFR Greater than 89 POC Glucose 265 H Random Glucose 249 H Calcium 8.4 L AST 39 H Albumin 1.8 L Microbiology 11/06/17 17:50 Shunt Fluid Gram Stain - Final 11/06/17 17:50 Shunt Fluid CSF Culture - Final - Imaging Chest X-Ray 10/23/17 00:00 CONCLUSION: The lungs are clear. Head CT 10/26/17 00:00 CONCLUSION: Slight interval increase in size of hemorrhage in the left paramedian posterior fossa. Liver Ultrasound 10/27/17 00:00 CONCLUSION: 1. Simple right renal cyst. 2. Otherwise normal examination of the abdomen. Chest X-Ray 11/07/17 00:00 CONCLUSION: 1. New left lower lobe airspace consolidation and associated volume loss. Chest X-Ray 11/08/17 00:00 CONCLUSION: 1. Persistent left basilar opacification, likely a combination of pleural fluid and airspace disease. 2. Subtle somewhat nodular opacity in the central right lower lung. This may represent an infectious process, though follow-up is recommended to ensure resolution. - Procedures 09/24>s/p stereotactic image guided suboccipital craniectomy, C1 laminectomy, microsurgical resection of metastatic carcinoma, duraplasty - 08/23>Right frontal [place] hole with placement of a ventriculostomy catheter removed 09/22 Left 4.4 cm cerebellar brain mass with vasogenic edema s/p EVD 09/29 for base of skull CSF leak vs. seroma.s/p [place] hole with ventriculostomy placement 10/10 for CSF leak 10/30 Left frontal catracho hole with placement of ventriculostomy catheter Assessment and Plan - Assessment (1) Hypokalemia Code(s): E87.6 - Hypokalemia Status: Acute (2) Cerebral ventriculitis Code(s): G04.90 - Encephalitis and encephalomyelitis, unspecified Status: Acute (3) Metastatic urothelial carcinoma Code(s): C79.10 - Secondary malignant neoplasm of unspecified urinary organs Status: Chronic (4) History of bladder cancer Code(s): Z85.51 - Personal history of malignant neoplasm of bladder Status: Chronic - Plan 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 - 09/24 Right frontal [place] hole with placement of a ventriculostomy catheter removed s/p EVD 09/29 for base of skull CSF leak vs. seroma. s/p [place] hole with ventriculostomy placement 10/10 for CSF leak Fungal/Yeast Ventriculitis Status post fall CT brain revealed left posterior fossa mass. Repeat CT brain 09/20 revealed much improved cerebral edema. 09/[address] tiny left cerebellar hemorrhage. MRI brain revealed a focal 4 cm left cerebellar mass with vasogenic edema s/p stereotactic image guided suboccipital craniectomy, C1 laminectomy, microsurgical resection of metastatic carcinoma, duraplasty by Dr. Horvath On Decadron 3 mg IV every 6 hours, reduce to 2 mg every 8 hours for 5 days and stop. Cleared by neurosurgery to stop Seizure prophylaxis with levetiracetam 500 mg po twice daily Acetaminophen 650 mg p.o. every 6 hours as needed fever. Hydrocodone/ acetaminophen 10/325 1 to 2 tablet every 4 hours as needed pain, hydromorphone as needed Neurosurgery/Dr. 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 revealed progressive hemorrhage identified within the posterior fossa with effacement of the fourth ventricle and quadrigeminal plate cistern as well as the atria of the left lateral ventricle. Repeat CT brain postop 09/24 revealed persistent areas of hemorrhage within the left posterior fossa as well as pneumocephalus within the surgical bed in the left posterior fossa. interval increased diffuse edema of the left cerebral hemisphere compared to previous examination with minimal subfalcine herniation to the right measuring 3 mm. Slight interval worsening effacement of the left lateral ventricle is noted. Scattered stable areas of acute subarachnoid hemorrhage are again noted within the frontoparietal regions bilaterally. CT brain 09/25 reveals stable hemorrhage/edema) CV: History of A. Flutter status post ablation by Dr. Mantilla 07/09 -currently normal sinus rhythm Chronic systolic heart failure ejection fraction 25% per echocardiogram 07/09 Essential hypertension Hyperlipidemia Sinus bradycardia/asymptomatic s/p IV Lasix 20 mg 1 stat 2D echocardiogram 07/09 revealed EF 25%. Echocardiogram 09/16 - endomyocardial borders are poorly visualized Normal left ventricular size. Wall thickness is normal. EF 45-50%. Nuclear medicine stress test per cardiology revealed no reversible ischemia. Ejection fraction 40% Hold simvastatin 20 mg nightly for dyslipidemia. As needed hydralazine/labetalol/clonidine/enalaprilat/nicardipine drip ordered for hypertension keep less than [address] Mancera - no treatment necessary. Lopressor to 50 mg bid, Vasotec to 5 bid Resp: Acute hypoxemic respiratory failure Left lower lobe pneumonia healthcare associated Prior history of tobaccoism Left lower lobe and posterior right lower lobe pulmonary nodules ? Metastatic Continue BiPAP 03/28. Titrate FiO2 to keep oxygen saturation more than 90% If respiratory status worsens or aspiration patient will need endotracheal intubation Chest x-ray shows left lower lobe pneumonia, today shows worsening infiltrate hob elevated, nebs q4hr scheduled and as needed Previously extubated on 10/11, tolerating nasal cannula. Previous CT chest CT pulmonary angiogram negative for PE previously. CT thorax revealed pulmonary nodules as above. Repeat CT scan in [address] pulmonary angiogram 09/26 revealed no pulmonary embolism. Possible aspiration/infiltrates noted. Mild pulmonary edema resolved. GI: Colonic diverticulosis Aortic lymphadenopathy to 3.9 cm Umbilical wall hernia Hypoalbuminemia Elevated total bilirubin Elevated AST N.p.o. except meds Lansoprazole 30 mg by tube daily for GI prophylaxis Docusate sodium/senna 1 tablet twice daily for bowel regimen Endo: Hyperglycemia/acute SSI with Novolin R with Accu-Cheks to maintain euglycemia/medium regimen while on dexamethasone Renal: Bilateral renal cysts 3.7 cm on the right and 2.9 cm on the left superior pole history of bladder cancer status post turbt/chemoradiation therapy Creatinine currently within normal limits Monitor urine output with accurate I's and O's Heme: Thrombocytopenia Normocytic anemia Leukopenia Chronic target specific oral anticoagulant use history of bladder cancer status post turbt/chemoradiation therapy Holding apixaban 5 mg p.o. twice daily with s/p brain mass resection, and EVD in place. Do not resume. Per cardiology. Hematology following Dr. Elizalde is his oncologist. Currently seen Dr. Chen during this hospitalization. Follow-up with outpatient oncology I discussed with Dr. Chen yesterday, patient is unable to undergo chemoradiation due to current critical condition, his overall prognosis from stage IV cancer is very poor ID: Fungal/yeast ventriculitis Left lower lobe healthcare associated pneumonia ID following: Dr. Gibbons Solumedrol (Methylprednisone) Intrathecal Intrathecal Ampho plus Intrathecal Solumedrol combo syringe. Continue IV ampho B dcd Diflucan IV 11/07 Primaxin and vancomycin for healthcare associated pneumonia CSF cultures from 10/10 growing yeast 2/2 cultures. Access Use PIV Prophylaxis -GI lansoprazole -DVT -SCD/started 09/19 per neurosurgery enoxaparin DVT prophylaxis/discontinued 09/24. Avoid chemical DVT prophylaxis due to severe thrombocytopenia Dispo: Patient remains very critical currently on BiPAP but may decompensate and need endotracheal intubation for severe left lower lobe pneumonia and hypoxemia. I had a long discussion with and son 11/07/17 and explained the prognosis being very poor and patient not a candidate for radiation or chemotherapy for his stage IV cancer. I also explained to the fact that patient has severe cardiomyopathy, also now severe sepsis and hypoxemic respiratory failure. His condition is deemed terminal and it is highly unlikely he will get discharged from hospital unless by hospice. She expressed good understanding she is willing to talk to palliative care, today 11/08/17. I have discussed with Dr. Chen and Dr. 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
--- NOTE | 2017-11-09 16:03 | P.PNNS ---
Subjective Interval history: 11/09: pt transitioned to comfort care. tearful and very thankful in our care. Physical Exam Vital signs: Vital Signs 11/08/17 16:49 11/08/17 18:34 11/08/17 20:00 Temperature Pulse Rate 119 H 119 H Respiratory Rate 20 22 Blood Pressure 109/65 Pulse Oximetry 78 L 11/08/17 22:00 11/09/17 00:00 11/09/17 02:00 Temperature Pulse Rate 126 H 123 H 125 H Respiratory Rate Blood Pressure Pulse Oximetry 11/09/17 04:00 11/09/17 06:00 11/09/17 07:15 Temperature Pulse Rate 124 H 123 H 120 H Respiratory Rate 22 Blood Pressure 98/63 L Pulse Oximetry 67 L 11/09/17 08:00 11/09/17 11:05 Temperature 98.5 F Pulse Rate 120 H 118 H Respiratory Rate 16 Blood Pressure 89/60 L Pulse Oximetry 72 L Intake & Output 11/08/17 11/09/17 11/09/17 18:59 06:59 18:59 Intake Total 454.850 / 454.850 0 / 0 Output Total 290 / 290 250 / 250 Balance 164.850 / 164.850 -250 / -250 Weight 87.4 kg Intake: IV 454.850 / 454.850 SoluMEDROL Inj 5 MG D5W Inj 3.8 3.925 / 3.925 ML Amphotericin B Conv. Inj 0. 1 MG In Bag/Syringe 1 EACH @ As Directed IT [facility] KATHERINE Rx#: [id number] SoluMEDROL Inj 5 MG D5W Inj 0.8 0.925 / 0.925 ML In Bag/Syringe 1 EACH @ As Directed IT [facility] KATHERINE Rx#: [id number] Precedex Inj 200 MCG In NS Inj 45 / 45 50 ML @ 0.2 MCG/KG/HR 4.72 mls/ hr IV.SIG TITRATE PRN Rx#: [id number] Primaxin Inj 500 MG In NS Inj 100 / 100 100 ML @ 200 mls/hr IV.SIG Q6HR KATHERINE Rx#:[id number] KCl 20 mEq Premix Inj 20 meq In 100 / 100 100 ml @ 50 mls/hr IV.SIG Q2H PRN Rx#:[id number] Keppra Inj 500 MG In NS Inj 100 105 / 105 ML @ 400 mls/hr IV.SIG Q12H KATHERINE Rx#:[id number] Oral 0 / 0 Output: Stool 0 / 0 Urine Amount (Catheter) 250 / 250 250 / 250 Condom 250 / 250 250 / 250 Wound Drainage 0 / 0 Right Occipital 0 / 0 Intracranial Drainage 40 / 40 0 / 0 Left Temporoparietal 40 / 40 0 / 0 Other: Date of Last Bowel Movement 10/30/17 10/30/17 10/30/17 # Bowel Movements 0 0 - Urinary Catheter Management Condom Cath placed during this visit: yes Reason for continuing: Hourly intake/output Insertion date: 10/30/17 Insertion time: 13:34 CATHETER Cath placed during this visit: yes Reason for continuing: Other continuation reason Insertion date: 10/30/17 Assessment and Plan - Assessment (1) Cerebral ventriculitis Code(s): G04.90 - Encephalitis and encephalomyelitis, unspecified Status: Acute (2) Metastatic urothelial carcinoma Code(s): C79.10 - Secondary malignant neoplasm of unspecified urinary organs Status: Chronic - Plan pt transitioned to comfort care ventriculostomy drain removed, using sterile technique and 4-0 silk suture, single stitch placed to close incision
--- NOTE | 2017-11-09 16:38 | P.PNPAL ---
Reason for Visit Reason for visit: a. To assist with evaluation and management of symptoms including: pain, dyspnea. b. To assist medical decision maker(s) with: better understanding of current medical conditions; weighing benefits/burdens of medical treatment options; making medical treatment decisions. Subjective Subjective/Interval History: Patient seen and examined in room 1515. Also present Yessica Green LCSW. and son at bedside. Family reports patient has remained comfortable since withdrawal of BiPAP on 11/08/17. Patient is unresponsive. He appears comfortable. No facial grimacing noted. Respirations are unlabored during my visit. Tachycardic. Oxygen saturation running in the low 70s. PPS 10. Prognosis hours to days. Discussed option for enrollment in hospice and transfer to hospice care center in [place]. indicates that she has to leave the hospital to go take care of their dogs shower and will be returning. At this time she is not interested in considering hospice will call palliative care if she and her son decide that transfer to hospice would be in keeping with her wishes. In the meantime we will continue comfort measures in the hospital. Discussed with nursing staff. . Advance Directives Living Will: Never completed Health Care Surrogate: Never completed Durable Power of Filling And Packing Supervisor: Never completed Health Care Surrogate Name and Number: HCP: Bina Valadezing [phone] Significant change in goals:: NO CODE. Goals are comfort oriented. Family is not yet ready to consider hospice services though desire comfort measures in the hospital, palliative care will continue to follow to assist with comfort related needs. Objective Vital Signs: Vital Signs 11/08/17 16:49 11/08/17 18:34 11/08/17 20:00 Temperature Pulse Rate 119 H 119 H Respiratory Rate 20 22 Blood Pressure 109/65 Pulse Oximetry 78 L 11/08/17 22:00 11/09/17 00:00 11/09/17 02:00 Temperature Pulse Rate 126 H 123 H 125 H Respiratory Rate Blood Pressure Pulse Oximetry 11/09/17 04:00 11/09/17 06:00 11/09/17 07:15 Temperature Pulse Rate 124 H 123 H 120 H Respiratory Rate 22 Blood Pressure 98/63 L Pulse Oximetry 67 L 11/09/17 08:00 11/09/17 11:05 Temperature 98.5 F Pulse Rate 120 H 118 H Respiratory Rate 16 Blood Pressure 89/60 L Pulse Oximetry 72 L Intake & Output 11/08/17 11/09/17 11/09/17 18:59 06:59 18:59 Intake Total 454.850 / 454.850 0 / 0 Output Total 290 / 290 250 / 250 Balance 164.850 / 164.850 -250 / -250 Weight 87.4 kg Intake: IV 454.850 / 454.850 SoluMEDROL Inj 5 MG D5W Inj 3.8 3.925 / 3.925 ML Amphotericin B Conv. Inj 0. 1 MG In Bag/Syringe 1 EACH @ As Directed IT [facility]We[facility] KATHERINE Rx#: [id number] SoluMEDROL Inj 5 MG D5W Inj 0.8 0.925 / 0.925 ML In Bag/Syringe 1 EACH @ As Directed IT [facility] KATHERINE Rx#: [id number] Precedex Inj 200 MCG In NS Inj 45 / 45 50 ML @ 0.2 MCG/KG/HR 4.72 mls/ hr IV.SIG TITRATE PRN Rx#: [id number] Primaxin Inj 500 MG In NS Inj 100 / 100 100 ML @ 200 mls/hr IV.SIG Q6HR KATHERINE Rx#:[id number] KCl 20 mEq Premix Inj 20 meq In 100 / 100 100 ml @ 50 mls/hr IV.SIG Q2H PRN Rx#:[id number] Keppra Inj 500 MG In NS Inj 100 105 / 105 ML @ 400 mls/hr IV.SIG Q12H KATHERINE Rx#:[id number] Oral 0 / 0 Output: Stool 0 / 0 Urine Amount (Catheter) 250 / 250 250 / 250 Condom 250 / 250 250 / 250 Wound Drainage 0 / 0 Right Occipital 0 / 0 Intracranial Drainage 40 / 40 0 / 0 Left Temporoparietal 40 / 40 0 / 0 Other: Date of Last Bowel Movement 10/30/17 10/30/17 10/30/17 # Bowel Movements 0 0 Physical Exam: CONSTITUTIONAL/GENERAL: This is an critically ill man, on BiPAP. Lethargic. TUBES/LINES/DRAINS: Ventriculostomy, BiPAP, PIV, catheter, SCDs SKIN: Skin temperature warm, febrile. CARDIOVASCULAR: Irregular heart sounds. RESPIRATORY/CHEST: Unlabored respirations. GASTROINTESTINAL: Abdomen soft, nondistended. Hypoactive bowel sounds. GENITOURINARY: Without palpable bladder distension. MUSCULOSKELETAL: Extremities with edema. NEUROLOGICAL: Unresponsive. PSYCHIATRIC: Unresponsive. Diagnostic Tests Laboratory: Laboratory Results - last 72 hr 11/06/17 11/06/17 11/06/17 06:46 17:50 18:26 WBC RBC Hgb Hct MCV MCH MCHC RDW Plt Count MPV Prelim Diff (Auto) WBC Differential Seg Neuts % (Manual) Band Neuts % (Manual) Lymphocytes % (Manual) Monocytes % (Manual) Metamyelocytes % (Man) Myelocytes % (Man) Abs Neuts (Manual) Nucleated RBCs/100 WBC Differential Comment Toxic Granulation Dohle Bodies Platelet Estimate Platelet Morphology Tear Drop Cells PT INR APTT Fibrinogen Puncture Site Patient Temperature O2 Saturation ABG pH ABG pCO2 ABG pO2 ABG HCO3 ABG O2 Content ABG Base Excess ABG Methemoglobin Vijay Test Hemoglobin Carboxyhemoglobin O2 Delivery Device Liter Flow Vent Setting Inspired O2 Critical Value Sodium Potassium Chloride Carbon Dioxide Anion Gap BUN Creatinine Estimated GFR POC Glucose 212 H Random Glucose Calcium Phosphorus Magnesium Iron 37 L TIBC 213 L % Saturation 17.4 L Ferritin 4525 H Total Bilirubin AST ALT Alkaline Phosphatase Total Protein Albumin Vitamin B12 519 Folate 8.7 CSF Volume (1) 7.0 CSF Supernat Color (1) Hemolyzed A CSF Gross Blood (1) 4+ A CSF WBC (1) 202 H CSF RBC (1) 80425 H CSF Neutrophils % 99 CSF Monocytes % 1 Bld Prod Order Comment 11/06/17 11/07/17 11/07/17 23:27 06:47 06:47 WBC 1.5 L RBC 2.76 L Hgb 8.1 L Hct 24.5 L MCV 88.8 MCH 29.5 MCHC 33.2 RDW 19.4 H Plt Count 31 L MPV 9.8 Prelim Diff (Auto) Manual diff required WBC Differential Manual diff final Seg Neuts % (Manual) 71 H Band Neuts % (Manual) 18 H Lymphocytes % (Manual) 9 Monocytes % (Manual) 1 Metamyelocytes % (Man) 1 Myelocytes % (Man) Abs Neuts (Manual) 1.4 L Nucleated RBCs/100 WBC 9 H Differential Comment . Toxic Granulation Dohle Bodies Platelet Estimate Low L Platelet Morphology Normal Tear Drop Cells PT INR APTT Fibrinogen Puncture Site Patient Temperature O2 Saturation ABG pH ABG pCO2 ABG pO2 ABG HCO3 ABG O2 Content ABG Base Excess ABG Methemoglobin Vijay Test Hemoglobin Carboxyhemoglobin O2 Delivery Device Liter Flow Vent Setting Inspired O2 Critical Value Sodium 154 H Potassium 3.3 L D Chloride 120 H Carbon Dioxide 22.6 Anion Gap 11 BUN 41 H Creatinine 0.58 L Estimated GFR Greater than 89 POC Glucose 240 H Random Glucose 188 H Calcium 8.0 L Phosphorus 2.9 Magnesium 1.8 Iron TIBC % Saturation Ferritin Total Bilirubin 1.3 H AST 23 ALT 66 Alkaline Phosphatase 111 Total Protein 5.0 L Albumin 1.8 L Vitamin B12 Folate CSF Volume (1) CSF Supernat Color (1) CSF Gross Blood (1) CSF WBC (1) CSF RBC (1) CSF Neutrophils % CSF Monocytes % Bld Prod Order Comment 11/07/17 11/07/17 11/07/17 10:26 11:00 11:00 WBC RBC Hgb Hct MCV MCH MCHC RDW Plt Count MPV Prelim Diff (Auto) WBC Differential Seg Neuts % (Manual) Band Neuts % (Manual) Lymphocytes % (Manual) Monocytes % (Manual) Metamyelocytes % (Man) Myelocytes % (Man) Abs Neuts (Manual) Nucleated RBCs/100 WBC Differential Comment Toxic Granulation Dohle Bodies Platelet Estimate Platelet Morphology Tear Drop Cells PT 12.3 H INR 1.2 APTT 20.3 L Fibrinogen 452 H Puncture Site Patient Temperature O2 Saturation ABG pH ABG pCO2 ABG pO2 ABG HCO3 ABG O2 Content ABG Base Excess ABG Methemoglobin Vijay Test Hemoglobin Carboxyhemoglobin O2 Delivery Device Liter Flow Vent Setting Inspired O2 Critical Value Sodium Potassium 3.5 Chloride Carbon Dioxide Anion Gap BUN Creatinine Estimated GFR POC Glucose Random Glucose Calcium Phosphorus Magnesium Iron TIBC % Saturation Ferritin Total Bilirubin AST ALT Alkaline Phosphatase Total Protein Albumin Vitamin B12 Folate CSF Volume (1) CSF Supernat Color (1) CSF Gross Blood (1) CSF WBC (1) CSF RBC (1) CSF Neutrophils % CSF Monocytes % Bld Prod Order Comment 11/07/17 11/07/17 11/07/17 11:15 11:30 11:59 WBC RBC Hgb Hct MCV MCH MCHC RDW Plt Count MPV Prelim Diff (Auto) WBC Differential Seg Neuts % (Manual) Band Neuts % (Manual) Lymphocytes % (Manual) Monocytes % (Manual) Metamyelocytes % (Man) Myelocytes % (Man) Abs Neuts (Manual) Nucleated RBCs/100 WBC Differential Comment Toxic Granulation Dohle Bodies Platelet Estimate Platelet Morphology Tear Drop Cells PT INR APTT Fibrinogen Puncture Site Right radial Cancelled Patient Temperature 98.6 Cancelled O2 Saturation 89 L* Cancelled ABG pH 7.52 H* Cancelled ABG pCO2 30 L Cancelled ABG pO2 59 L* Cancelled ABG HCO3 24 Cancelled ABG O2 Content 10.6 L Cancelled ABG Base Excess 1.4 Cancelled ABG Methemoglobin 1.1 Cancelled Vijay Test Present Cancelled Hemoglobin 8.5 L Cancelled Carboxyhemoglobin 2.4 Cancelled O2 Delivery Device Venti mask Cancelled Liter Flow 6.00 Cancelled Vent Setting Cancelled Inspired O2 50 Cancelled Critical Value Yes Cancelled Sodium Potassium Chloride Carbon Dioxide Anion Gap BUN Creatinine Estimated GFR POC Glucose 211 H Random Glucose Calcium Phosphorus Magnesium Iron TIBC % Saturation Ferritin Total Bilirubin AST ALT Alkaline Phosphatase Total Protein Albumin Vitamin B12 Folate CSF Volume (1) CSF Supernat Color (1) CSF Gross Blood (1) CSF WBC (1) CSF RBC (1) CSF Neutrophils % CSF Monocytes % Bld Prod Order Comment 11/07/17 11/07/17 11/08/17 17:10 22:11 00:38 WBC RBC Hgb Hct MCV MCH MCHC RDW Plt Count MPV Prelim Diff (Auto) WBC Differential Seg Neuts % (Manual) Band Neuts % (Manual) Lymphocytes % (Manual) Monocytes % (Manual) Metamyelocytes % (Man) Myelocytes % (Man) Abs Neuts (Manual) Nucleated RBCs/100 WBC Differential Comment Toxic Granulation Dohle Bodies Platelet Estimate Platelet Morphology Tear Drop Cells PT INR APTT Fibrinogen Puncture Site Patient Temperature O2 Saturation ABG pH ABG pCO2 ABG pO2 ABG HCO3 ABG O2 Content ABG Base Excess ABG Methemoglobin Vijay Test Hemoglobin Carboxyhemoglobin O2 Delivery Device Liter Flow Vent Setting Inspired O2 Critical Value Sodium Potassium Chloride Carbon Dioxide Anion Gap BUN Creatinine Estimated GFR POC Glucose 205 H 245 H 238 H Random Glucose Calcium Phosphorus Magnesium Iron TIBC % Saturation Ferritin Total Bilirubin AST ALT Alkaline Phosphatase Total Protein Albumin Vitamin B12 Folate CSF Volume (1) CSF Supernat Color (1) CSF Gross Blood (1) CSF WBC (1) CSF RBC (1) CSF Neutrophils % CSF Monocytes % Bld Prod Order Comment 11/08/17 11/08/17 11/08/17 06:34 08:30 10:05 WBC 1.2 L RBC 2.72 L Hgb 8.0 L Hct 24.6 L MCV 90.7 MCH 29.5 MCHC 32.6 RDW 19.5 H Plt Count 35 L MPV 9.4 Prelim Diff (Auto) Manual diff required WBC Differential Manual diff final Seg Neuts % (Manual) 50 Band Neuts % (Manual) 33 H Lymphocytes % (Manual) 9 Monocytes % (Manual) 1 Metamyelocytes % (Man) 5 H Myelocytes % (Man) 2 H Abs Neuts (Manual) 1.1 L Nucleated RBCs/100 WBC 5 H Differential Comment . Toxic Granulation 2+ H Dohle Bodies Present H Platelet Estimate Low L Platelet Morphology Normal Tear Drop Cells 1+ H PT INR APTT Fibrinogen Puncture Site Patient Temperature O2 Saturation ABG pH ABG pCO2 ABG pO2 ABG HCO3 ABG O2 Content ABG Base Excess ABG Methemoglobin Vijay Test Hemoglobin Carboxyhemoglobin O2 Delivery Device Liter Flow Vent Setting Inspired O2 Critical Value Sodium 154 H Potassium 3.3 L Chloride 119 H Carbon Dioxide 20.2 L Anion Gap 15 BUN 39 H Creatinine 0.71 Estimated GFR Greater than 89 POC Glucose 298 H Random Glucose 249 H Calcium 8.4 L Phosphorus Magnesium Iron TIBC % Saturation Ferritin Total Bilirubin 1.4 H AST 39 H ALT 55 Alkaline Phosphatase 109 Total Protein 5.4 L Albumin 1.8 L Vitamin B12 Folate CSF Volume (1) CSF Supernat Color (1) CSF Gross Blood (1) CSF WBC (1) CSF RBC (1) CSF Neutrophils % CSF Monocytes % Bld Prod Order Comment 11/08/17 12:21 WBC RBC Hgb Hct MCV MCH MCHC RDW Plt Count MPV Prelim Diff (Auto) WBC Differential Seg Neuts % (Manual) Band Neuts % (Manual) Lymphocytes % (Manual) Monocytes % (Manual) Metamyelocytes % (Man) Myelocytes % (Man) Abs Neuts (Manual) Nucleated RBCs/100 WBC Differential Comment Toxic Granulation Dohle Bodies Platelet Estimate Platelet Morphology Tear Drop Cells PT INR APTT Fibrinogen Puncture Site Patient Temperature O2 Saturation ABG pH ABG pCO2 ABG pO2 ABG HCO3 ABG O2 Content ABG Base Excess ABG Methemoglobin Vijay Test Hemoglobin Carboxyhemoglobin O2 Delivery Device Liter Flow Vent Setting Inspired O2 Critical Value Sodium Potassium Chloride Carbon Dioxide Anion Gap BUN Creatinine Estimated GFR POC Glucose 265 H Random Glucose Calcium Phosphorus Magnesium Iron TIBC % Saturation Ferritin Total Bilirubin AST ALT Alkaline Phosphatase Total Protein Albumin Vitamin B12 Folate CSF Volume (1) CSF Supernat Color (1) CSF Gross Blood (1) CSF WBC (1) CSF RBC (1) CSF Neutrophils % CSF Monocytes % Bld Prod Order Comment Result Diagrams: 11/08/17 08:30 11/08/17 10:05 Microbiology: Microbiology 11/06/17 17:50 Gram Stain - Final Shunt Fluid CSF Culture - Final 10/30/17 Unknown Fungal Smear - Final Cerebral Spinal Fluid - Shunt Fluid No fungal elements seen Fungal Culture - Preliminary No growth in 1 week Imaging: Head CT 10/26/17 00:00 CONCLUSION: Slight interval increase in size of hemorrhage in the left paramedian posterior fossa. Liver Ultrasound 10/27/17 00:00 CONCLUSION: 1. Simple right renal cyst. 2. Otherwise normal examination of the abdomen. Chest X-Ray 11/08/17 00:00 CONCLUSION: 1. Persistent left basilar opacification, likely a combination of pleural fluid and airspace disease. 2. Subtle somewhat nodular opacity in the central right lower lung. This may represent an infectious process, though follow-up is recommended to ensure resolution. Procedures: 09/13/17-right frontal catracho hole with placement of a ventriculostomy catheter 09/13/17-posterior tactic image guided suboccipital craniectomy, C1 laminectomy , microsurgical resection of metastatic carcinoma, duraplasty 09/22/17-removal of ventriculostomy catheter 09/24/2017-reexploration of the posterior fossa craniectomy, evacuation of cerebellar clot, duraplasty with 2 regarding enterocele, placement of epidural drain 09/24/2017-intubated 09/29/17-EVD for base of skull CSF leak versus seroma 10/06/17-extubated 10/10/17-Catracho hole with ventriculostomy placement for CSF leak, with central line placement 10/12/17-extubated 10/30/17-left frontal catracho hole with placement of ventriculostomy catheter Assessment and Plan - Disease Oriented Problem List (4) Status post urinary system surgery Comment: bladder cancer resection - Symptom Scale (1) Pain Comment: Multiple surgical inteventions during this hospitalization. Patient has a braing tumor, at risk for headaches. Pertinent Non-Medical Issues: Psychosocial: Patient was born and raised in [place]. Patient is , lives with his of 23 years. He has 2 adult children, a daughter Sydney Clinton who lives in [place] and a son Michael Clinton who lives locally. Patient works for a [employer] and [employer] business. Spiritual: Per she has taken him to christian several times, but gnosticist is not a big part of his life Legal:Never completed advance directives Ethical issues impacting care:None identified at this time Important Contacts: Spouse-Lacey Clinton-[phone] Prognosis: Mr Clinton is a 52 years old patient with a past medical history of atrial flutter status post ablation, systolic heart failure, hypertension, and history of bladder cancer status post chemoradiation therapy in 2016. Patient was brought to the emergency department on 09/11/17 after he slipped and fell at work. Patient fell on the left side of his head, face and had a laceration to the lift upper eyelid. Clinical course complicated with thrombocytopenia, bleeding around ventriculostomy, CSF infection and decreased oral intake. Given ongoing comorbidities, patient remains at high risk for further complications, deterioration and decline. Code Status: No Code DNR Plan: * Legal decision maker: Patient is lethargic, not able to participate in medical decision making. According to [place] statutes, health care proxy decision making falls to his Lacey Clinton. * Goals: Discussed option for enrollment in hospice and transfer to hospice care center in [place]. indicates that she has to leave the hospital to go take care of their dogs shower and will be returning. At this time she is not interested in considering hospice will call palliative care if she and her son decide that transfer to hospice would be in keeping with her wishes. In the meantime we will continue comfort measures in the hospital. * Discussed with nursing staff. * NO CODE * Palliative care will continue to follow the patient during hospital course as condition evolves, to assist patient/decision-maker with understanding of their medical conditions, weighing benefits/burdens of treatment options, for clarification of goals of treatment. Additionally will assist with any symptoms of palliative concern. SYMPTOMS: * Pain:Patient has a brain tumor, underwent suboccipital craniectomy, C1 laminectomy and resection of metastatic carcinoma. Patient has had multiple surgical interventions. He may have headaches and is at risk for pain. Continue comfort meds as ordered. Patient appears comfortable. Will adjust if needed. * Decreased oral intake: Oral care. * Dyspnea: Continue to monitor, unlabored respirations during my visit today. Comfort meds ordered. Will adjust if needed. Attestation Collaborating MD Comments: Chart reviewed. Case discussed with palliative care nurse practitioner. Above CLIENT SERVICE ADMINISTRATOR note reviewed and I concur. . Attestation: To help prompt me to consider important information that might be impacting today's encounter and assessment, information from prior notes written by myself or my colleagues may have been "brought forward" into today's note. My signature on this note, however, is an attestation that I personally performed the exam, history, and/or decision-making noted today, and, unless otherwise indicated, the interactions with patient, family, and staff as well as the review of records all occurred today. I also attest that the listed assessment and stated plan reflect my best clinical judgment today based on the combination of historical information, prior notes, and today's exam/ interactions. When time spent is documented, it refers only to time spent today by the signer, or if indicated, combined time spent today by collaborating physician/nurse practitioner.
[2017-11-10] MEDS: Morphine Inj 4 MG/ML Vial IV.PUSH SCH ×2 (00:55→04:31)
[2017-11-10] MEDS: Artificial Tears Opth Drops 15 ML Bottle EACH EYE SCH (05:20)
--- NOTE | 2017-11-10 13:49 | P.DN ---
Discharge Sum: Prov - Provider Primary care physician: [facility] Admitting clinician: Chelsi Damian Attending physician on admission: Chelsi Damian Consults: 10/25/17 15:41 Consult to Hematology Routine Consulting Provider: Dmitry Luna Reason for Consultation: reconsult for worsening thrombocytopenis level in 30s now, leukopenia , pt under intrathecal amphotericin b treatment, fluconazole and ventriculostomy Notified:: Service Spoke with:: Federica Date Notified:: 10/25/17 Time Notified:: 15:46 Ordering Provider: MATT 10/29/17 10:01 Consult to Palliative Care Routine Consulting Provider: Milton Chou Reason for Consultation: Pt with metastatic urothelial carcinoma, CSF fungal infection, depression. Please clarify goals of care. Notified:: Service Spoke with:: JOEY Date Notified:: 10/29/17 Time Notified:: 10:15 Ordering Provider: JOHANNE 11/06/17 13:02 Consult to Hematology Routine Consulting Provider: Maritza Chen Reason for Consultation: cytopenia Notified:: Office Spoke with:: FREDRICK Date Notified:: 11/06/17 Time Notified:: 13:06 Ordering Provider: SUMI 11/07/17 13:08 Consult to Security Auditor Routine Consulting Provider: Ariel Moore Reason for Consultation: hypoxia, pnuemonia Notified:: Service Spoke with:: cindi Date Notified:: 11/07/17 Time Notified:: 13:38 Ordering Provider: WING 11/09/17 06:36 Consult to Hospitalist Routine Consulting Provider: Ann Kaufman Preferred Factory Engineer:: Nico Nolasco Patient known to:: Nico Nolasco Reason for Consultation: Assume care today 11/09/17 Notified:: Service Spoke with:: MARQUEZ Date Notified:: 11/09/17 Time Notified:: 06:39 Comments:: Ordering Provider: MALIK Pronouncing clinician: Cira Zarco Discharge Sum: Diag - PCOD Cause of : Cardiac arrest Discharge Sum: Summary - Date and Time Date of admission: 09/11/17 16:02 Date of : 11/10/17 Time of : 06:00 - Summary Details: 52-year-old male. Date of admission 09/11/2017. Past medical history includes atrial flutter status post ablation by Dr. Mantilla, systolic heart failure likely chronic ejection fraction 25%, hypertension, hyperlipidemia and history of bladder cancer status post removal with chemoradiation therapy 2015. 09/11, the patient presented to [place] ED status post slip and fall outside his work earlier today. Patient hit the left side of his forehead above the left eye head and face and sustained a laceration over his left upper eyelid. Patient is on apixaban 5 mg twice daily. He went to see his primary care doctor at [place] and was asked to come to the emergency room instead. He was brought in by EMS from there. Patient is otherwise awake and answering questions appropriately. Vital signs are stable. No history of syncopal episode of vomiting. Patient says his last tetanus shot was in last couple years. Bleeding seems to have been controlled. Upon further evaluation, patient is cleaned of a headache with no vision changes with nausea and vomiting [address] of the head revealed a mass in the left posterior fossa. MRI brain relieved with a left cerebellar mass 4.4 cm with vasogenic edema. Midline. Dr. Horvath was notified by the ED and recommended ISC admission with dexamethasone 4 mg IV every 6 hours.. His laceration was sutured with 4.0 Ethicon by the ED physician. He is currently requesting his be notified of his admission 09/12: Resting in bed in no acute distress. Plan for bedside pulmonary function test and stress echocardiogram this afternoon. CT abdomen/pelvis revealed bilateral renal cysts, tiny right ureteral stones and periaortic lymphadenopathy up to 3.9 cm. Bilateral lower lobe 3 mm pulmonary nodules noted. Patient is awake alert no acute distress clinically stable. 09/13: Proceed to OR for evaluation of brain mass. Nuclear medicine scan revealed no reversible ischemia. Ejection fraction 40%. In good spirits. 09/14: Tolerated OR yesterday without complication. Excited to be consuming water at the present time. Pain controlled. No seizures noted. 09/15: Lying comfortably in bed no distress. CT of the head ordered for today. Ventriculostomy in place drained to 80 mL in 24 hours 09/16: Breathing comfortably. No complaints. BP up, will add PO hydralazine ( Reluctant to use beta vida with resting pulse 45.) 09/17: Lying in bed, comfortable. No acute distress. Ventriculostomy output less blood-tinged but appears slightly cloudy. Output 255 mL in 24 hours. Discussed with NAKUL Mercer about slightly cloudy CSF 09/18: Sitting up in bed eating breakfast no focal deficits. CSF culture sent yesterday appears slightly blood-tinged with very slight cloudiness. EVD output 198 mL in 24 hours. Raised to -10 09/19: EVD elevated and well tolerated. Bradycradia persists, no treatment necessary per cardiology. 09/20: Currently resting in bed in no acute distress. No ongoing issues. Ventriculostomy currently at -20 cm H2O. 175 cc reddish yellow. Opaque. Very small bowel movement today 09/21: Currently afebrile. Ventriculostomy is been clamped today. One bowel movement overnight. No complaints 09/22: Complains of headache overnight. Retro-orbit. No visual changes or hallucinations. Received narcotics overnight with some relief. CT brain pending. Noted that ventriculostomy was clamped overnight. 09/23: Afebrile. Noted some currently 128. Remains fatigued. Ventriculostomy removed. 09/24: Afebrile. Headache overnight 10 worsening. Dizziness noted. Started on nicardipine drip due to hypertension. Sodium 129-132 on 2% saline drip at 50 cc an hour. 09/25: Currently resting in bed in no acute distress. Status post reexploration of the posterior fossa craniectomy, evacuation of cerebellar clot, duraplasty with DuraGuard and DuraSeal, placement of epidural drain secondary to cerebellar hemorrhage. Remains sedated on propofol and fentanyl drips. Plan for CT brain exam.. 370 cc from SCOTT overnight SS 70 09/26: acutely hypoxemic this AM. no new pulmonary secretions. CXR unchanged. ordered CT pulmonary angiogram without evidence of PE. hypoxia improved spontaneously. somewhat positive fluid balance. CT brain with persistent edema and midline shift. 09/27: Afebrile. CT pulmonary revealed no pulmonary embolism. Remains sedated on propofol and fentanyl drips. Tube feeds at goal. 09/28: no changes. no improvements. remains deeply sedated per Dr. Horvath. 09/29: remains somewhat hypoxic on elevated fio2. lungs clear to auscultation without wheezing. CXR without overt cause. may be generalized volume overload: will start to diurese. repeat head CT with improving edema. per nsgy: cleared to wean sedation. 09/30: CSF leak from base of skull. nsgy placed EVD to decompress overnight. still needs diuresis. following commands. 10/01: no changes. still intermittently following commands. fio2 down to 40%. good diuresis overnight: will need to continue. CSF culture NGTD. 10/02: Afebrile. Following commands. Tiny emesis this a.m. Tube feeds back at goal rate. CSF culture no growth today. Urine culture with gram-negative lee ann. 10/03: ICP well controlled. Osmolality acceptable. 3% saline on hold. Urine not significant organisms, convert to ceftriaxone X 2 days. 10/04: Low grade fever persists. Continue ceftriaxone while awaiting cultures. Start 2% saline. 10/05: Reduce 2% saline, osmolality acceptable. 10/06: More alert today. Moves 4 limbs to command, tracks with eyes. Osmolality acceptably concentrated and blood pressure adequately controlled. 10/07: Extubated yesterday and continues to breathe comfortably. Protects airway. Afebrile, no leukocytosis. Chest x-ray has been clear aside from minor atelectasis. Sputum culture noted. Hold off treatment for now. Adjust antibiotics per ID service. 10/10: Patient had a CSF leak from previous posterior fossa craniectomy site. He went to the OR today and underwent bur hole with ventriculostomy placement by Dr. Horvath under general anesthesia, tolerated procedure well. Patient had a central line placed by anesthesia preoperatively and in view of concern regarding neurologic status was left intubated and transferred back to ICU and placed on mechanical ventilation. Critical care reconsulted by hospitalist service for vent management. I evaluated the patient following his arrival to the ICU. At that time he was drowsy though arousable, orally intubated on mechanical ventilation. History obtained by reviewing records and discussion with nursing staff. 10/11: remains intubated. CSF growing yeast, further ID to follow. discussed with Dr. Gibbons, and will need to empirically start fluconazole and Ampho B empirically until further speciation is resulted. 10/12: Extubated 10/11. Following commands. Knows he is at the hospital. Knows it is 2018. Ventriculostomy continues to drain. 11/07 Critical care medicine was reconsulted today for acute deterioration in respiratory status. Patient's history was reviewed as above. Patient increasingly short of breath tachypneic since a.m. a chest x-ray showed left lower lobe pneumonia. On vent mask patient continued to desaturate, ABG 7.52/30 /59. Patient was placed on 100% nonrebreather. I immediately evaluated the patient is severely tachypneic breathing about 40 breaths per minute using accessory muscles. He is willing for endotracheal intubation and mechanical ventilation if he is not improved on BiPAP. I have ordered BiPAP 03/28. Breathing treatments changed to every 4 hours scheduled. Continue Zosyn 4.5 g every 8 hours. Give single dose of vancomycin 1 g x1. We will continue amphotericin B and Diflucan per ID 11/08: Patient remains critical in respiratory failure remains on BiPAP. Overnight had issues with respiratory distress and agitation, improved after starting Precedex. Chest x-ray shows increasing left-sided infiltrate. I had a long discussion with and explained the prognosis being very poor and patient not a candidate for radiation or chemotherapy for his stage IV cancer. She expressed good understanding she is willing to talk to palliative care, she will consider hospice but currently wants to continue aggressive care and patient remains a full code. 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 - 09/24 Right frontal [place] hole with placement of a ventriculostomy catheter removed s/p EVD 09/29 for base of skull CSF leak vs. seroma. s/p [place] hole with ventriculostomy placement 10/10 for CSF leak Fungal/Yeast Ventriculitis Status post fall CT brain revealed left posterior fossa mass. Repeat CT brain 09/20 revealed much improved cerebral edema. 09/[address] tiny left cerebellar hemorrhage. MRI brain revealed a focal 4 cm left cerebellar mass with vasogenic edema s/p stereotactic image guided suboccipital craniectomy, C1 laminectomy, microsurgical resection of metastatic carcinoma, duraplasty by Dr. Horvath On Decadron 3 mg IV every 6 hours, reduce to 2 mg every 8 hours for 5 days and stop. Cleared by neurosurgery to stop Seizure prophylaxis with levetiracetam 500 mg po twice daily Acetaminophen 650 mg p.o. every 6 hours as needed fever. Hydrocodone/ acetaminophen 10/325 1 to 2 tablet every 4 hours as needed pain, hydromorphone as needed Neurosurgery/Dr. 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 revealed progressive hemorrhage identified within the posterior fossa with effacement of the fourth ventricle and quadrigeminal plate cistern as well as the atria of the left lateral ventricle. Repeat CT brain postop 09/24 revealed persistent areas of hemorrhage within the left posterior fossa as well as pneumocephalus within the surgical bed in the left posterior fossa. interval increased diffuse edema of the left cerebral hemisphere compared to previous examination with minimal subfalcine herniation to the right measuring 3 mm. Slight interval worsening effacement of the left lateral ventricle is noted. Scattered stable areas of acute subarachnoid hemorrhage are again noted within the frontoparietal regions bilaterally. CT brain 09/25 reveals stable hemorrhage/edema) CV: History of A. Flutter status post ablation by Dr. Mantilla 07/09 -currently normal sinus rhythm Chronic systolic heart failure ejection fraction 25% per echocardiogram 07/09 Essential hypertension Hyperlipidemia Sinus bradycardia/asymptomatic s/p IV Lasix 20 mg 1 stat 2D echocardiogram 07/09 revealed EF 25%. Echocardiogram 09/16 - endomyocardial borders are poorly visualized Normal left ventricular size. Wall thickness is normal. EF 45-50%. Nuclear medicine stress test per cardiology revealed no reversible ischemia. Ejection fraction 40% Hold simvastatin 20 mg nightly for dyslipidemia. As needed hydralazine/labetalol/clonidine/enalaprilat/nicardipine drip ordered for hypertension keep less than [address] Mancera - no treatment necessary. Lopressor to 50 mg bid, Vasotec to 5 bid Resp: Acute hypoxemic respiratory failure Left lower lobe pneumonia healthcare associated Prior history of tobaccoism Left lower lobe and posterior right lower lobe pulmonary nodules ? Metastatic Continue BiPAP 03/28. Titrate FiO2 to keep oxygen saturation more than 90% If respiratory status worsens or aspiration patient will need endotracheal intubation Chest x-ray shows left lower lobe pneumonia, today shows worsening infiltrate hob elevated, nebs q4hr scheduled and as needed Previously extubated on 10/11, tolerating nasal cannula. Previous CT chest CT pulmonary angiogram negative for PE previously. CT thorax revealed pulmonary nodules as above. Repeat CT scan in [address] pulmonary angiogram 09/26 revealed no pulmonary embolism. Possible aspiration/infiltrates noted. Mild pulmonary edema resolved. GI: Colonic diverticulosis Aortic lymphadenopathy to 3.9 cm Umbilical wall hernia Hypoalbuminemia Elevated total bilirubin Elevated AST N.p.o. except meds Lansoprazole 30 mg by tube daily for GI prophylaxis Docusate sodium/senna 1 tablet twice daily for bowel regimen Endo: Hyperglycemia/acute SSI with Novolin R with Accu-Cheks to maintain euglycemia/medium regimen while on dexamethasone Renal: Bilateral renal cysts 3.7 cm on the right and 2.9 cm on the left superior pole history of bladder cancer status post turbt/chemoradiation therapy Creatinine currently within normal limits Monitor urine output with accurate I's and O's Heme: Thrombocytopenia Normocytic anemia Leukopenia Chronic target specific oral anticoagulant use history of bladder cancer status post turbt/chemoradiation therapy Holding apixaban 5 mg p.o. twice daily with s/p brain mass resection, and EVD in place. Do not resume. Per cardiology. Hematology following Dr. Elizalde is his oncologist. Currently seen Dr. Chen during this hospitalization. Follow-up with outpatient oncology I discussed with Dr. Chen yesterday, patient is unable to undergo chemoradiation due to current critical condition, his overall prognosis from stage IV cancer is very poor ID: Fungal/yeast ventriculitis Left lower lobe healthcare associated pneumonia ID following: Dr. Gibbons Solumedrol (Methylprednisone) Intrathecal Intrathecal Ampho plus Intrathecal Solumedrol combo syringe. Continue IV ampho B dcd Diflucan IV 11/07 Primaxin and vancomycin for healthcare associated pneumonia CSF cultures from 10/10 growing yeast 2/2 cultures. Access Use PIV Prophylaxis -GI lansoprazole -DVT -SCD/started 09/19 per neurosurgery enoxaparin DVT prophylaxis/discontinued 09/24. Avoid chemical DVT prophylaxis due to severe thrombocytopenia Dispo: Patient remains very critical currently on BiPAP but may decompensate and need endotracheal intubation for severe left lower lobe pneumonia and hypoxemia. I had a long discussion with and son 11/07/17 and explained the prognosis being very poor and patient not a candidate for radiation or chemotherapy for his stage IV cancer. I also explained to the fact that patient has severe cardiomyopathy, also now severe sepsis and hypoxemic respiratory failure. His condition is deemed terminal and it is highly unlikely he will get discharged from hospital unless by hospice. She expressed good understanding she is willing to talk to palliative care, today 11/08/17. I have discussed with Dr. Chen and Dr. Horvath POOR PROGNOSIS MAY DNR-VENEER GRADER COMFORT MEASURES ONLY PALLIATIVE AND HOSPICE TO ASSIST IN MAKING HIM COMFORTABLE POOR PROGNOSIS Code Status: DNR- VENEER GRADER pronounced at 6:00am on 11-10 - Additional Data Confirmation of as documented by pronouncing clinician: no pulse, no respirations, no heart sounds, pupils fixed and dilated Family: at bedside Attending/PCP notified?: Yes Attending physician: Chelsi Damian MD Was code activated?: No test examiner notified?: No Organ bank notified?: Yes Advance directives: Yes Hospice patient?: No
--- NOTE | 2017-11-10 13:53 | P.DS ---
Date of admission: 09/11/17 16:02 Primary care physician: [facility] Attending physician on discharge: Nico Nolasco Anticipated date of discharge: 11/10/17 Brief History from admission: 52-year-old male. Date of admission 09/11/2017. Past medical history includes atrial flutter status post ablation by Dr. Mantilla, systolic heart failure likely chronic ejection fraction 25%, hypertension, hyperlipidemia and history of bladder cancer status post removal with chemoradiation therapy 2015. 09/11, the patient presented to [place] ED status post slip and fall outside his work earlier today. Patient hit the left side of his forehead above the left eye head and face and sustained a laceration over his left upper eyelid. Patient is on apixaban 5 mg twice daily. He went to see his primary care doctor at [facility] and was asked to come to the emergency room instead. He was brought in by EMS from there. Patient is otherwise awake and answering questions appropriately. Vital signs are stable. No history of syncopal episode of vomiting. Patient says his last tetanus shot was in last couple years. Bleeding seems to have been controlled. Upon further evaluation, patient is cleaned of a headache with no vision changes with nausea and vomiting [address] of the head revealed a mass in the left posterior fossa. MRI brain relieved with a left cerebellar mass 4.4 cm with vasogenic edema. Midline. Dr. Horvath was notified by the ED and recommended ISC admission with dexamethasone 4 mg IV every 6 hours.. His laceration was sutured with 4.0 Ethicon by the ED physician. He is currently requesting his be notified of his admission 09/12: Resting in bed in no acute distress. Plan for bedside pulmonary function test and stress echocardiogram this afternoon. CT abdomen/pelvis revealed bilateral renal cysts, tiny right ureteral stones and periaortic lymphadenopathy up to 3.9 cm. Bilateral lower lobe 3 mm pulmonary nodules noted. Patient is awake alert no acute distress clinically stable. 09/13: Proceed to OR for evaluation of brain mass. Nuclear medicine scan revealed no reversible ischemia. Ejection fraction 40%. In good spirits. 09/14: Tolerated OR yesterday without complication. Excited to be consuming water at the present time. Pain controlled. No seizures noted. 09/15: Lying comfortably in bed no distress. CT of the head ordered for today. Ventriculostomy in place drained to 80 mL in 24 hours 09/16: Breathing comfortably. No complaints. BP up, will add PO hydralazine ( Reluctant to use beta vida with resting pulse 45.) 09/17: Lying in bed, comfortable. No acute distress. Ventriculostomy output less blood-tinged but appears slightly cloudy. Output 255 mL in 24 hours. Discussed with NAKUL Mercer about slightly cloudy CSF 09/18: Sitting up in bed eating breakfast no focal deficits. CSF culture sent yesterday appears slightly blood-tinged with very slight cloudiness. EVD output 198 mL in 24 hours. Raised to -10 09/19: EVD elevated and well tolerated. Bradycradia persists, no treatment necessary per cardiology. 09/20: Currently resting in bed in no acute distress. No ongoing issues. Ventriculostomy currently at -20 cm H2O. 175 cc reddish yellow. Opaque. Very small bowel movement today 09/21: Currently afebrile. Ventriculostomy is been clamped today. One bowel movement overnight. No complaints 09/22: Complains of headache overnight. Retro-orbit. No visual changes or hallucinations. Received narcotics overnight with some relief. CT brain pending. Noted that ventriculostomy was clamped overnight. 09/23: Afebrile. Noted some currently 128. Remains fatigued. Ventriculostomy removed. 09/24: Afebrile. Headache overnight 10 worsening. Dizziness noted. Started on nicardipine drip due to hypertension. Sodium 129-132 on 2% saline drip at 50 cc an hour. 09/25: Currently resting in bed in no acute distress. Status post reexploration of the posterior fossa craniectomy, evacuation of cerebellar clot, duraplasty with DuraGuard and DuraSeal, placement of epidural drain secondary to cerebellar hemorrhage. Remains sedated on propofol and fentanyl drips. Plan for CT brain exam.. 370 cc from SCOTT overnight SS 70 09/26: acutely hypoxemic this AM. no new pulmonary secretions. CXR unchanged. ordered CT pulmonary angiogram without evidence of PE. hypoxia improved spontaneously. somewhat positive fluid balance. CT brain with persistent edema and midline shift. 09/27: Afebrile. CT pulmonary revealed no pulmonary embolism. Remains sedated on propofol and fentanyl drips. Tube feeds at goal. 09/28: no changes. no improvements. remains deeply sedated per DrMay Alexandru. 09/29: remains somewhat hypoxic on elevated fio2. lungs clear to auscultation without wheezing. CXR without overt cause. may be generalized volume overload: will start to diurese. repeat head CT with improving edema. per nsgy: cleared to wean sedation. 09/30: CSF leak from base of skull. nsgy placed EVD to decompress overnight. still needs diuresis. following commands. 10/01: no changes. still intermittently following commands. fio2 down to 40%. good diuresis overnight: will need to continue. CSF culture NGTD. 10/02: Afebrile. Following commands. Tiny emesis this a.m. Tube feeds back at goal rate. CSF culture no growth today. Urine culture with gram-negative lee ann. 10/03: ICP well controlled. Osmolality acceptable. 3% saline on hold. Urine not significant organisms, convert to ceftriaxone X 2 days. 10/04: Low grade fever persists. Continue ceftriaxone while awaiting cultures. Start 2% saline. 10/05: Reduce 2% saline, osmolality acceptable. 10/06: More alert today. Moves 4 limbs to command, tracks with eyes. Osmolality acceptably concentrated and blood pressure adequately controlled. 10/07: Extubated yesterday and continues to breathe comfortably. Protects airway. Afebrile, no leukocytosis. Chest x-ray has been clear aside from minor atelectasis. Sputum culture noted. Hold off treatment for now. Adjust antibiotics per ID service. 10/10: Patient had a CSF leak from previous posterior fossa craniectomy site. He went to the OR today and underwent bur hole with ventriculostomy placement by Dr. Horvath under general anesthesia, tolerated procedure well. Patient had a central line placed by anesthesia preoperatively and in view of concern regarding neurologic status was left intubated and transferred back to ICU and placed on mechanical ventilation. Critical care reconsulted by hospitalist service for vent management. I evaluated the patient following his arrival to the ICU. At that time he was drowsy though arousable, orally intubated on mechanical ventilation. History obtained by reviewing records and discussion with nursing staff. 10/11: remains intubated. CSF growing yeast, further ID to follow. discussed with Dr. Gibbons, and will need to empirically start fluconazole and Ampho B empirically until further speciation is resulted. 10/12: Extubated 10/11. Following commands. Knows he is at the hospital. Knows it is 2018. Ventriculostomy continues to drain. 11/07 Critical care medicine was reconsulted today for acute deterioration in respiratory status. Patient's history was reviewed as above. Patient increasingly short of breath tachypneic since a.m. a chest x-ray showed left lower lobe pneumonia. On vent mask patient continued to desaturate, ABG 7.52/30 /59. Patient was placed on 100% nonrebreather. I immediately evaluated the patient is severely tachypneic breathing about 40 breaths per minute using accessory muscles. He is willing for endotracheal intubation and mechanical ventilation if he is not improved on BiPAP. I have ordered BiPAP 03/28. Breathing treatments changed to every 4 hours scheduled. Continue Zosyn 4.5 g every 8 hours. Give single dose of vancomycin 1 g x1. We will continue amphotericin B and Diflucan per ID 11/08: Patient remains critical in respiratory failure remains on BiPAP. Overnight had issues with respiratory distress and agitation, improved after starting Precedex. Chest x-ray shows increasing left-sided infiltrate. I had a long discussion with and explained the prognosis being very poor and patient not a candidate for radiation or chemotherapy for his stage IV cancer. She expressed good understanding she is willing to talk to palliative care, she will consider hospice but currently wants to continue aggressive care and patient remains a full code. 11-09 PATIENT IS A DNR-FRAME COVERER COMFORT MEASURES ONLY ON ATIVAN AND MORPHINE HIS VENTRICULOSTOMY TUBE HAS BEEN PULLED TODAY BY NEUROSURGERY JOSE ALEJANDRO [facility] PATIENT MAY GO WITH HOSPICE IN NEXT 24 TO 48 HOURS POOR PROGNOSIS FAMILY TO MAKE MORE DECISIONS WITH HELP OF PALLIATIVE CARE AND HOSPICE 11-10 patient noted to and be pronounced at 6:00 PATIENT HAS BEEN MADE DNR-FRAME COVERER COMFORT MEASURES ONLY WILL TRY TO MAKE HIM COMFORTABLE JOSE ALEJANDRO [facility] TO EVAL JOSE ALEJANDRO NEUROSURGERY- THEY PULLED HIS VENTRIC CONTINUE COMFORT MEDS ONLY Left Cerebellar mass with pathology showing metastatic non-small cell carcinoma s/p suboccipital craniectomy, C1 laminectomy, microsurgical resection of metastatic carcinoma, duraplasty - 09/13 s/p reexploration of the post fossa craniectomy, evacuation of cerebellar clot, duraplasty, placement of epidural drain for cerebellar hemorrhage. - 09/24 Right frontal [place] hole with placement of a ventriculostomy catheter removed s/p EVD 09/29 for base of skull CSF leak vs. seroma. s/p [place] hole with ventriculostomy placement 10/10 for CSF leak Fungal/Yeast Ventriculitis Status post fall CT brain revealed left posterior fossa mass. Repeat CT brain 09/20 revealed much improved cerebral edema. 09/[address] tiny left cerebellar hemorrhage. MRI brain revealed a focal 4 cm left cerebellar mass with vasogenic edema s/p stereotactic image guided suboccipital craniectomy, C1 laminectomy, microsurgical resection of metastatic carcinoma, duraplasty by Dr. Horvath On Decadron 3 mg IV every 6 hours, reduce to 2 mg every 8 hours for 5 days and stop. Cleared by neurosurgery to stop Seizure prophylaxis with levetiracetam 500 mg po twice daily Acetaminophen 650 mg p.o. every 6 hours as needed fever. Hydrocodone/ acetaminophen 10/325 1 to 2 tablet every 4 hours as needed pain, hydromorphone as needed Neurosurgery/Dr. 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 revealed progressive hemorrhage identified within the posterior fossa with effacement of the fourth ventricle and quadrigeminal plate cistern as well as the atria of the left lateral ventricle. Repeat CT brain postop 09/24 revealed persistent areas of hemorrhage within the left posterior fossa as well as pneumocephalus within the surgical bed in the left posterior fossa. interval increased diffuse edema of the left cerebral hemisphere compared to previous examination with minimal subfalcine herniation to the right measuring 3 mm. Slight interval worsening effacement of the left lateral ventricle is noted. Scattered stable areas of acute subarachnoid hemorrhage are again noted within the frontoparietal regions bilaterally. CT brain 09/25 reveals stable hemorrhage/edema) CV: History of A. Flutter status post ablation by Dr. Mantilla 07/09 -currently normal sinus rhythm Chronic systolic heart failure ejection fraction 25% per echocardiogram 07/09 Essential hypertension Hyperlipidemia Sinus bradycardia/asymptomatic s/p IV Lasix 20 mg 1 stat 2D echocardiogram 07/09 revealed EF 25%. Echocardiogram 09/16 - endomyocardial borders are poorly visualized Normal left ventricular size. Wall thickness is normal. EF 45-50%. Nuclear medicine stress test per cardiology revealed no reversible ischemia. Ejection fraction 40% Hold simvastatin 20 mg nightly for dyslipidemia. As needed hydralazine/labetalol/clonidine/enalaprilat/nicardipine drip ordered for hypertension keep less than [address] Mancera - no treatment necessary. Lopressor to 50 mg bid, Vasotec to 5 bid Resp: Acute hypoxemic respiratory failure Left lower lobe pneumonia healthcare associated Prior history of tobaccoism Left lower lobe and posterior right lower lobe pulmonary nodules ? Metastatic Continue BiPAP 03/28. Titrate FiO2 to keep oxygen saturation more than 90% If respiratory status worsens or aspiration patient will need endotracheal intubation Chest x-ray shows left lower lobe pneumonia, today shows worsening infiltrate hob elevated, nebs q4hr scheduled and as needed Previously extubated on 10/11, tolerating nasal cannula. Previous CT chest CT pulmonary angiogram negative for PE previously. CT thorax revealed pulmonary nodules as above. Repeat CT scan in [address] pulmonary angiogram 09/26 revealed no pulmonary embolism. Possible aspiration/infiltrates noted. Mild pulmonary edema resolved. GI: Colonic diverticulosis Aortic lymphadenopathy to 3.9 cm Umbilical wall hernia Hypoalbuminemia Elevated total bilirubin Elevated AST N.p.o. except meds Lansoprazole 30 mg by tube daily for GI prophylaxis Docusate sodium/senna 1 tablet twice daily for bowel regimen Endo: Hyperglycemia/acute SSI with Novolin R with Accu-Cheks to maintain euglycemia/medium regimen while on dexamethasone Renal: Bilateral renal cysts 3.7 cm on the right and 2.9 cm on the left superior pole history of bladder cancer status post turbt/chemoradiation therapy Creatinine currently within normal limits Monitor urine output with accurate I's and O's Heme: Thrombocytopenia Normocytic anemia Leukopenia Chronic target specific oral anticoagulant use history of bladder cancer status post turbt/chemoradiation therapy Holding apixaban 5 mg p.o. twice daily with s/p brain mass resection, and EVD in place. Do not resume. Per cardiology. Hematology following Dr. Elizalde is his oncologist. Currently seen Dr. Chen during this hospitalization. Follow-up with outpatient oncology I discussed with Dr. Chen yesterday, patient is unable to undergo chemoradiation due to current critical condition, his overall prognosis from stage IV cancer is very poor ID: Fungal/yeast ventriculitis Left lower lobe healthcare associated pneumonia ID following: Dr. Gibbons Solumedrol (Methylprednisone) Intrathecal Intrathecal Ampho plus Intrathecal Solumedrol combo syringe. Continue IV ampho B dcd Diflucan IV 11/07 Primaxin and vancomycin for healthcare associated pneumonia CSF cultures from 10/10 growing yeast /2 cultures. Access Use PIV Prophylaxis -GI lansoprazole -DVT -SCD/started 09/19 per neurosurgery enoxaparin DVT prophylaxis/discontinued 09/24. Avoid chemical DVT prophylaxis due to severe thrombocytopenia Dispo: Patient remains very critical currently on BiPAP but may decompensate and need endotracheal intubation for severe left lower lobe pneumonia and hypoxemia. I had a long discussion with and son 11/07/17 and explained the prognosis being very poor and patient not a candidate for radiation or chemotherapy for his stage IV cancer. I also explained to the fact that patient has severe cardiomyopathy, also now severe sepsis and hypoxemic respiratory failure. His condition is deemed terminal and it is highly unlikely he will get discharged from hospital unless by hospice. She expressed good understanding she is willing to talk to palliative care, today 11/08/17. I have discussed with Dr. Chen and Dr. Horvath POOR PROGNOSIS MAY DNR-FRAME COVERER COMFORT MEASURES ONLY PALLIATIVE AND HOSPICE TO ASSIST IN MAKING HIM COMFORTABLE POOR PROGNOSIS Code Status: DNR- FRAME COVERER pronounced at 6:00am on 11-10 DS: Diagnosis - Discharge Diagnosis (1) Hypokalemia Status: Acute (2) Cerebral ventriculitis Status: Acute (3) Metastatic urothelial carcinoma Status: Chronic (4) History of bladder cancer Status: Chronic (5) Decreased oral intake Status: Acute (6) Infection by Lisa species Status: Acute (7) Pneumonia Status: Acute (8) Respiratory failure Status: Acute DS: Summary Hospital Course: 52-year-old male. Date of admission 09/11/2017. Past medical history includes atrial flutter status post ablation by Dr. Mantilla, systolic heart failure likely chronic ejection fraction 25%, hypertension, hyperlipidemia and history of bladder cancer status post removal with chemoradiation therapy 2015. 09/11, the patient presented to [place] ED status post slip and fall outside his work earlier today. Patient hit the left side of his forehead above the left eye head and face and sustained a laceration over his left upper eyelid. Patient is on apixaban 5 mg twice daily. He went to see his primary care doctor at [facility] and was asked to come to the emergency room instead. He was brought in by EMS from there. Patient is otherwise awake and answering questions appropriately. Vital signs are stable. No history of syncopal episode of vomiting. Patient says his last tetanus shot was in last couple years. Bleeding seems to have been controlled. Upon further evaluation, patient is cleaned of a headache with no vision changes with nausea and vomiting [address] of the head revealed a mass in the left posterior fossa. MRI brain relieved with a left cerebellar mass 4.4 cm with vasogenic edema. Midline. Dr. Horvath was notified by the ED and recommended ISC admission with dexamethasone 4 mg IV every 6 hours.. His laceration was sutured with 4.0 Ethicon by the ED physician. He is currently requesting his be notified of his admission 09/12: Resting in bed in no acute distress. Plan for bedside pulmonary function test and stress echocardiogram this afternoon. CT abdomen/pelvis revealed bilateral renal cysts, tiny right ureteral stones and periaortic lymphadenopathy up to 3.9 cm. Bilateral lower lobe 3 mm pulmonary nodules noted. Patient is awake alert no acute distress clinically stable. 09/13: Proceed to OR for evaluation of brain mass. Nuclear medicine scan revealed no reversible ischemia. Ejection fraction 40%. In good spirits. 09/14: Tolerated OR yesterday without complication. Excited to be consuming water at the present time. Pain controlled. No seizures noted. 09/15: Lying comfortably in bed no distress. CT of the head ordered for today. Ventriculostomy in place drained to 80 mL in 24 hours 09/16: Breathing comfortably. No complaints. BP up, will add PO hydralazine ( Reluctant to use beta vida with resting pulse 45.) 09/17: Lying in bed, comfortable. No acute distress. Ventriculostomy output less blood-tinged but appears slightly cloudy. Output 255 mL in 24 hours. Discussed with NAKUL Mercer about slightly cloudy CSF 09/18: Sitting up in bed eating breakfast no focal deficits. CSF culture sent yesterday appears slightly blood-tinged with very slight cloudiness. EVD output 198 mL in 24 hours. Raised to -10 09/19: EVD elevated and well tolerated. Bradycradia persists, no treatment necessary per cardiology. 09/20: Currently resting in bed in no acute distress. No ongoing issues. Ventriculostomy currently at -20 cm H2O. 175 cc reddish yellow. Opaque. Very small bowel movement today 09/21: Currently afebrile. Ventriculostomy is been clamped today. One bowel movement overnight. No complaints 09/22: Complains of headache overnight. Retro-orbit. No visual changes or hallucinations. Received narcotics overnight with some relief. CT brain pending. Noted that ventriculostomy was clamped overnight. 09/23: Afebrile. Noted some currently 128. Remains fatigued. Ventriculostomy removed. 09/24: Afebrile. Headache overnight 10 worsening. Dizziness noted. Started on nicardipine drip due to hypertension. Sodium 129-132 on 2% saline drip at 50 cc an hour. 09/25: Currently resting in bed in no acute distress. Status post reexploration of the posterior fossa craniectomy, evacuation of cerebellar clot, duraplasty with DuraGuard and DuraSeal, placement of epidural drain secondary to cerebellar hemorrhage. Remains sedated on propofol and fentanyl drips. Plan for CT brain exam.. 370 cc from SCOTT overnight SS 70 09/26: acutely hypoxemic this AM. no new pulmonary secretions. CXR unchanged. ordered CT pulmonary angiogram without evidence of PE. hypoxia improved spontaneously. somewhat positive fluid balance. CT brain with persistent edema and midline shift. 09/27: Afebrile. CT pulmonary revealed no pulmonary embolism. Remains sedated on propofol and fentanyl drips. Tube feeds at goal. 09/28: no changes. no improvements. remains deeply sedated per Dr. Horvath. 09/29: remains somewhat hypoxic on elevated fio2. lungs clear to auscultation without wheezing. CXR without overt cause. may be generalized volume overload: will start to diurese. repeat head CT with improving edema. per nsgy: cleared to wean sedation. 09/30: CSF leak from base of skull. nsgy placed EVD to decompress overnight. still needs diuresis. following commands. 10/01: no changes. still intermittently following commands. fio2 down to 40%. good diuresis overnight: will need to continue. CSF culture NGTD. 10/02: Afebrile. Following commands. Tiny emesis this a.m. Tube feeds back at goal rate. CSF culture no growth today. Urine culture with gram-negative lee ann. 10/03: ICP well controlled. Osmolality acceptable. 3% saline on hold. Urine not significant organisms, convert to ceftriaxone X 2 days. 10/04: Low grade fever persists. Continue ceftriaxone while awaiting cultures. Start 2% saline. 10/05: Reduce 2% saline, osmolality acceptable. 10/06: More alert today. Moves 4 limbs to command, tracks with eyes. Osmolality acceptably concentrated and blood pressure adequately controlled. 10/07: Extubated yesterday and continues to breathe comfortably. Protects airway. Afebrile, no leukocytosis. Chest x-ray has been clear aside from minor atelectasis. Sputum culture noted. Hold off treatment for now. Adjust antibiotics per ID service. 10/10: Patient had a CSF leak from previous posterior fossa craniectomy site. He went to the OR today and underwent bur hole with ventriculostomy placement by Dr. Horvath under general anesthesia, tolerated procedure well. Patient had a central line placed by anesthesia preoperatively and in view of concern regarding neurologic status was left intubated and transferred back to ICU and placed on mechanical ventilation. Critical care reconsulted by hospitalist service for vent management. I evaluated the patient following his arrival to the ICU. At that time he was drowsy though arousable, orally intubated on mechanical ventilation. History obtained by reviewing records and discussion with nursing staff. 10/11: remains intubated. CSF growing yeast, further ID to follow. discussed with Dr. Gibbons, and will need to empirically start fluconazole and Ampho B empirically until further speciation is resulted. 10/12: Extubated 10/11. Following commands. Knows he is at the hospital. Knows it is 2017. Ventriculostomy continues to drain. 11/07 Critical care medicine was reconsulted today for acute deterioration in respiratory status. Patient's history was reviewed as above. Patient increasingly short of breath tachypneic since a.m. a chest x-ray showed left lower lobe pneumonia. On vent mask patient continued to desaturate, ABG 7.52/30 /59. Patient was placed on 100% nonrebreather. I immediately evaluated the patient is severely tachypneic breathing about 40 breaths per minute using accessory muscles. He is willing for endotracheal intubation and mechanical ventilation if he is not improved on BiPAP. I have ordered BiPAP 03/28. Breathing treatments changed to every 4 hours scheduled. Continue Zosyn 4.5 g every 8 hours. Give single dose of vancomycin 1 g x1. We will continue amphotericin B and Diflucan per ID 11/08: Patient remains critical in respiratory failure remains on BiPAP. Overnight had issues with respiratory distress and agitation, improved after starting Precedex. Chest x-ray shows increasing left-sided infiltrate. I had a long discussion with and explained the prognosis being very poor and patient not a candidate for radiation or chemotherapy for his stage IV cancer. She expressed good understanding she is willing to talk to palliative care, she will consider hospice but currently wants to continue aggressive care and patient remains a full code. 11-09 PATIENT IS A DNR-FRAME COVERER COMFORT MEASURES ONLY ON ATIVAN AND MORPHINE HIS VENTRICULOSTOMY TUBE HAS BEEN PULLED TODAY BY NEUROSURGERY DW [facility] PATIENT MAY GO WITH HOSPICE IN NEXT 24 TO 48 HOURS POOR PROGNOSIS FAMILY TO MAKE MORE DECISIONS WITH HELP OF PALLIATIVE CARE AND HOSPICE 11-10 patient noted to and be pronounced at 6:00 PATIENT HAS BEEN MADE DNR-FRAME COVERER COMFORT MEASURES ONLY WILL TRY TO MAKE HIM COMFORTABLE [facility] TO [facility]OS[facility]GERY- THEY PULLED HIS VENTRIC CONTINUE COMFORT MEDS ONLY Left Cerebellar mass with pathology showing metastatic non-small cell carcinoma s/p suboccipital craniectomy, C1 laminectomy, microsurgical resection of metastatic carcinoma, duraplasty - 09/13 s/p reexploration of the post fossa craniectomy, evacuation of cerebellar clot, duraplasty, placement of epidural drain for cerebellar hemorrhage. - 09/24 Right frontal [place] hole with placement of a ventriculostomy catheter removed s/p EVD 09/29 for base of skull CSF leak vs. seroma. s/p [place] hole with ventriculostomy placement 10/10 for CSF leak Fungal/Yeast Ventriculitis Status post fall CT brain revealed left posterior fossa mass. Repeat CT brain 09/20 revealed much improved cerebral edema. 09/[address] tiny left cerebellar hemorrhage. MRI brain revealed a focal 4 cm left cerebellar mass with vasogenic edema s/p stereotactic image guided suboccipital craniectomy, C1 laminectomy, microsurgical resection of metastatic carcinoma, duraplasty by Dr. Horvath On Decadron 3 mg IV every 6 hours, reduce to 2 mg every 8 hours for 5 days and stop. Cleared by neurosurgery to stop Seizure prophylaxis with levetiracetam 500 mg po twice daily Acetaminophen 650 mg p.o. every 6 hours as needed fever. Hydrocodone/ acetaminophen 10/325 1 to 2 tablet every 4 hours as needed pain, hydromorphone as needed Neurosurgery/Dr. 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 revealed progressive hemorrhage identified within the posterior fossa with effacement of the fourth ventricle and quadrigeminal plate cistern as well as the atria of the left lateral ventricle. Repeat CT brain postop 09/24 revealed persistent areas of hemorrhage within the left posterior fossa as well as pneumocephalus within the surgical bed in the left posterior fossa. interval increased diffuse edema of the left cerebral hemisphere compared to previous examination with minimal subfalcine herniation to the right measuring 3 mm. Slight interval worsening effacement of the left lateral ventricle is noted. Scattered stable areas of acute subarachnoid hemorrhage are again noted within the frontoparietal regions bilaterally. CT brain 09/25 reveals stable hemorrhage/edema) CV: History of A. Flutter status post ablation by Dr. Mantilla 07/09 -currently normal sinus rhythm Chronic systolic heart failure ejection fraction 25% per echocardiogram 07/09 Essential hypertension Hyperlipidemia Sinus bradycardia/asymptomatic s/p IV Lasix 20 mg 1 stat 2D echocardiogram 07/09 revealed EF 25%. Echocardiogram 09/16 - endomyocardial borders are poorly visualized Normal left ventricular size. Wall thickness is normal. EF 45-50%. Nuclear medicine stress test per cardiology revealed no reversible ischemia. Ejection fraction 40% Hold simvastatin 20 mg nightly for dyslipidemia. As needed hydralazine/labetalol/clonidine/enalaprilat/nicardipine drip ordered for hypertension keep less than [address] Mancera - no treatment necessary. Lopressor to 50 mg bid, Vasotec to 5 bid Resp: Acute hypoxemic respiratory failure Left lower lobe pneumonia healthcare associated Prior history of tobaccoism Left lower lobe and posterior right lower lobe pulmonary nodules ? Metastatic Continue BiPAP 03/28. Titrate FiO2 to keep oxygen saturation more than 90% If respiratory status worsens or aspiration patient will need endotracheal intubation Chest x-ray shows left lower lobe pneumonia, today shows worsening infiltrate hob elevated, nebs q4hr scheduled and as needed Previously extubated on 10/11, tolerating nasal cannula. Previous CT chest CT pulmonary angiogram negative for PE previously. CT thorax revealed pulmonary nodules as above. Repeat CT scan in [address] pulmonary angiogram 09/26 revealed no pulmonary embolism. Possible aspiration/infiltrates noted. Mild pulmonary edema resolved. GI: Colonic diverticulosis Aortic lymphadenopathy to 3.9 cm Umbilical wall hernia Hypoalbuminemia Elevated total bilirubin Elevated AST N.p.o. except meds Lansoprazole 30 mg by tube daily for GI prophylaxis Docusate sodium/senna 1 tablet twice daily for bowel regimen Endo: Hyperglycemia/acute SSI with Novolin R with Accu-Cheks to maintain euglycemia/medium regimen while on dexamethasone Renal: Bilateral renal cysts 3.7 cm on the right and 2.9 cm on the left superior pole history of bladder cancer status post turbt/chemoradiation therapy Creatinine currently within normal limits Monitor urine output with accurate I's and O's Heme: Thrombocytopenia Normocytic anemia Leukopenia Chronic target specific oral anticoagulant use history of bladder cancer status post turbt/chemoradiation therapy Holding apixaban 5 mg p.o. twice daily with s/p brain mass resection, and EVD in place. Do not resume. Per cardiology. Hematology following Dr. Elizalde is his oncologist. Currently seen Dr. Chen during this hospitalization. Follow-up with outpatient oncology I discussed with Dr. Chen yesterday, patient is unable to undergo chemoradiation due to current critical condition, his overall prognosis from stage IV cancer is very poor ID: Fungal/yeast ventriculitis Left lower lobe healthcare associated pneumonia ID following: Dr. Gibbons Solumedrol (Methylprednisone) Intrathecal Intrathecal Ampho plus Intrathecal Solumedrol combo syringe. Continue IV ampho B dcd Diflucan IV 11/07 Primaxin and vancomycin for healthcare associated pneumonia CSF cultures from 10/10 growing yeast 2/2 cultures. Access Use PIV Prophylaxis -GI lansoprazole -DVT -SCD/started 09/19 per neurosurgery enoxaparin DVT prophylaxis/discontinued 09/24. Avoid chemical DVT prophylaxis due to severe thrombocytopenia Dispo: Patient remains very critical currently on BiPAP but may decompensate and need endotracheal intubation for severe left lower lobe pneumonia and hypoxemia. I had a long discussion with and son 11/07/17 and explained the prognosis being very poor and patient not a candidate for radiation or chemotherapy for his stage IV cancer. I also explained to the fact that patient has severe cardiomyopathy, also now severe sepsis and hypoxemic respiratory failure. His condition is deemed terminal and it is highly unlikely he will get discharged from hospital unless by hospice. She expressed good understanding she is willing to talk to palliative care, today 11/08/17. I have discussed with Dr. Chen and Dr. Horvath POOR PROGNOSIS MAY DNR-FRAME COVERER COMFORT MEASURES ONLY PALLIATIVE AND HOSPICE TO ASSIST IN MAKING HIM COMFORTABLE POOR PROGNOSIS Code Status: DNR- FRAME COVERER pronounced at 6:00am on 11-10 - Time Spent with Patient Total time spent providing and/or coordinating discharge services: Less than 30 minutes Exam Vital signs: Vital Signs 11/09/17 16:00 11/09/17 20:00 11/10/17 04:00 Temperature 98.1 F 98.4 F 98 F Pulse Rate 119 H 119 H 122 H Respiratory Rate 20 22 Blood Pressure 88/57 L 80/53 L 80/47 L Pulse Oximetry 72 L 71 L 23 L Intake & Output 11/09/17 11/10/17 11/10/17 18:59 06:59 18:59 Intake Total 30 / 30 105 / 105 Output Total 100 / 100 Balance -70 / -70 105 / 105 Intake: IV 105 / 105 Keppra Inj 500 MG In NS Inj 100 105 / 105 ML @ 400 mls/hr IV.SIG Q12H KATHERINE Rx#:[id number] Oral 0 / 0 Other 30 / 30 Output: Stool 0 / 0 Urine Amount (Catheter) 100 / 100 CATHETER 50 / 50 Condom 50 / 50 Wound Drainage 0 / 0 Right Occipital 0 / 0 Intracranial Drainage 0 / 0 Left Temporoparietal 0 / 0 Other: Other Intake Source Saline Solution Date of Last Bowel Movement 10/30/17 # Bowel Movements 0 Narrative: patient was Results Procedures completed during hospitalization: 09/24>s/p stereotactic image guided suboccipital craniectomy, C1 laminectomy, microsurgical resection of metastatic carcinoma, duraplasty - 08/23>Right frontal [place] hole with placement of a ventriculostomy catheter removed 09/22 Left 4.4 cm cerebellar brain mass with vasogenic edema s/p EVD 09/29 for base of skull CSF leak vs. seroma.s/p Catracho hole with ventriculostomy placement 10/10 for CSF leak 10/30 Left frontal catracho hole with placement of ventriculostomy catheter Completed studies during hospitalization: Laboratory Results WBC 1.2 th/mm3 (4.0-11.0) L 11/08/17 08:30 RBC 2.72 mil/mm3 (4.50-5.90) L 11/08/17 08:30 Hgb 8.0 gm/dL (13.0-17.0) L 11/08/17 08:30 Hct 24.6 % (39.0-51.0) L 11/08/17 08:30 MCV 90.7 fL (80.0-100.0) 11/08/17 08:30 MCH 29.5 pg (27.0-34.0) 11/08/17 08:30 MCHC 32.6 % (32.0-36.0) 11/08/17 08:30 RDW 19.5 % (11.6-17.2) H 11/08/17 08:30 Plt Count 35 th/mm3 (150-450) L 11/08/17 08:30 MPV 9.4 fL (7.0-11.0) 11/08/17 08:30 Prelim Diff (Auto) Manual diff required 11/08/17 08:30 Neut % (Auto) 86.4 % (16.0-70.0) H 11/04/17 04:08 Lymph % (Auto) 10.9 % (9.0-44.0) 11/04/17 04:08 [place] % (Auto) 2.1 % (0.0-8.0) 11/04/17 04:08 Eos % (Auto) 0.0 % (0.0-4.0) 11/04/17 04:08 Baso % (Auto) 0.6 % (0.0-2.0) 11/04/17 04:08 Neut # (Auto) 1.9 th/mm3 (1.8-7.7) 11/04/17 04:08 Lymph # (Auto) 0.2 th/mm3 (1.0-4.8) L 11/04/17 04:08 [place] # (Auto) 0.0 th/mm3 (0.0-0.9) 11/04/17 04:08 Eos # (Auto) 0.0 th/mm3 (0.0-0.4) 11/04/17 04:08 Baso # (Auto) 0.0 th/mm3 (0.0-0.2) 11/04/17 04:08 CBC Comment AUTO DIFF 10/21/17 11:20 WBC Differential Manual diff final 11/08/17 08:30 Diff Scan Auto diff confirmed 11/03/17 06:20 Total Counted 100 10/21/17 11:20 Neutrophils % (Manual) 91 % (16-70) H 10/21/17 11:20 Seg Neuts % (Manual) 50 % (16-70) 11/08/17 08:30 Band Neutrophils % 1 % (0-6) 10/21/17 11:20 Band Neuts % (Manual) 33 % (0-6) H 11/08/17 08:30 Lymphocytes % 4 % (9-44) L 10/21/17 11:20 Lymphocytes % (Manual) 9 % (9-44) 11/08/17 08:30 Monocytes % 2 % (0-8) 10/21/17 11:20 Monocytes % (Manual) 1 % (0-8) 11/08/17 08:30 Metamyelocytes % (Man) 5 % (0-1) H 11/08/17 08:30 Myelocytes % (Man) 2 % (0-0) H 11/08/17 08:30 Neutrophils # (Manual) 8.9 TH/MM3 (1.8-7.7) H 10/21/17 11:20 Abs Neuts (Manual) 1.1 th/mm3 (1.8-7.7) L 11/08/17 08:30 Metamyelocytes 1 % (0-1) 10/11/17 06:10 Myelocytes 2 % (0-0) H 10/21/17 11:20 Nucleated RBCs 6 /100 WBC (0-0) H 10/11/17 06:10 Nucleated RBCs/100 WBC 5 /100 WBC (0-0) H 11/08/17 08:30 Differential Comment . 11/08/17 08:30 Toxic Granulation 2+ (None) H 11/08/17 08:30 Dohle Bodies Present (None) H 11/08/17 08:30 Platelet Estimate Low (Normal) L 11/08/17 08:30 Platelet Morphology Normal (Normal) 11/08/17 08:30 Plt Morphology Comment NORMAL (NORMAL) 10/21/17 11:20 Polychromasia 2.1 % (0.0-1.9) H 11/01/17 06:56 Basophilic Stippling FAINT (NORMAL) H 10/05/17 05:26 Tear Drop Cells 1+ (None) H 11/08/17 08:30 Ovalocytes 1+ (None) H 11/06/17 06:46 Keratocytes 1+ (None) H 10/30/17 06:00 RBC Morph Comment NORMAL (NORMAL) 09/20/17 04:20 PT 12.3 sec (9.8-11.6) H 11/07/17 11:00 INR 1.2 Ratio 11/07/17 11:00 APTT 20.3 sec (24.3-30.1) L 11/07/17 11:00 Fibrinogen 452 mg/dL (227-377) H 11/07/17 11:00 Puncture Site Right radial 11/07/17 11:15 Patient Temperature 98.6 11/07/17 11:15 HCO3 19 mmol/L (22-26) L 10/11/17 00:40 Base Excess -3.6 mmol/L (-2-2) L 10/11/17 00:40 O2 Saturation 89 % (90-100) L* 11/07/17 11:15 ABG pH 7.52 (7.380-7.420) H* 11/07/17 11:15 ABG pCO2 30 mmHg (38-42) L 11/07/17 11:15 ABG pO2 59 mmHg (61-120) L* 11/07/17 11:15 ABG HCO3 24 mmol/L (22-26) 11/07/17 11:15 ABG O2 Content 10.6 Vol % (12.0-20.0) L 11/07/17 11:15 ABG Base Excess 1.4 mmol/L (-2-2) 11/07/17 11:15 ABG Carboxyhemoglobin 2.6 % (0-4) 10/11/17 00:40 ABG Methemoglobin 1.1 % (0-2) 11/07/17 11:15 Vijay Test Present 11/07/17 11:15 Hemoglobin 8.5 G/DL (12.0-16.0) L 11/07/17 11:15 Carboxyhemoglobin 2.4 % (0-4) 11/07/17 11:15 O2 Delivery Device Venti mask 11/07/17 11:15 Liter Flow 6.00 L/M 11/07/17 11:15 Vent Setting PRVC/AC 10/11/17 00:40 Inspired O2 50 % 11/07/17 11:15 Critical Value Yes 11/07/17 11:15 Sodium 154 meq/L (136-145) H 11/08/17 10:05 Potassium 3.3 meq/L (3.5-5.1) L 11/08/17 10:05 Chloride 119 meq/L (98-107) H 11/08/17 10:05 Carbon Dioxide 20.2 meq/L (21.0-32.0) L 11/08/17 10:05 Anion Gap 15 meq/L (5-15) 11/08/17 10:05 BUN 39 mg/dL (7-18) H 11/08/17 10:05 Creatinine 0.71 mg/dL (0.60-1.30) 11/08/17 10:05 Estimated GFR Greater than 89 mL/min (>89) 11/08/17 10:05 POC Glucose 265 mg/dl (68-110) H 11/08/17 12:21 Random Glucose 249 mg/dL (74-106) H 11/08/17 10:05 Hemoglobin A1c 4.9 % (4.3-6.0) 10/31/17 13:58 Serum Osmolality 309 MOSM/KG (275-295) H 09/28/17 05:55 Lactic Acid 2.0 mmol/L (0.4-2.0) 09/11/17 20:35 Uric Acid 3.4 MG/DL (2.6-7.2) 09/23/17 18:46 Calcium 8.4 mg/dL (8.5-10.1) L 11/08/17 10:05 Prot Corrected Calcium 8.4 MG/DL (8.5-10.1) L 10/14/17 05:45 Phosphorus 2.9 mg/dL (2.5-4.9) 11/07/17 06:47 Magnesium 1.8 mg/dL (1.5-2.5) 11/07/17 06:47 Iron 37 mcg/dL (65-175) L 11/06/17 06:46 TIBC 213 mcg/dL (250-450) L 11/06/17 06:46 % Saturation 17.4 % (20-50) L 11/06/17 06:46 Ferritin 4525 ng/mL (26-388) H 11/06/17 06:46 Total Bilirubin 1.4 mg/dL (0.2-1.0) H 11/08/17 10:05 Direct Bilirubin Less than 0.1 mg/dL (0.0-0.2) 10/26/17 13:39 Indirect Bilirubin 0.7 mg/dL (0.0-0.8) 10/26/17 13:39 AST 39 U/L (15-37) H 11/08/17 10:05 ALT 55 U/L (12-78) 11/08/17 10:05 Alkaline Phosphatase 109 U/L (45-117) 11/08/17 10:05 Ammonia 23 MCMOL/L (11-32) 09/28/17 05:55 Total Creatine Kinase 70 U/L (39-308) 09/11/17 20:35 Total Protein 5.4 g/dL (6.4-8.2) L 11/08/17 10:05 Albumin 1.8 g/dL (3.4-5.0) L 11/08/17 10:05 Amylase 44 U/L (25-115) 09/24/17 07:20 Lipase 104 U/L (73-393) 09/24/17 07:20 Vitamin B12 519 pg/mL (193-986) 11/06/17 06:46 Folate 8.7 ng/mL (3.1-17.5) 11/06/17 06:46 TSH 0.484 uIU/mL (0.358-3.740) 10/31/17 07:09 Free T4 0.79 ng/dL (0.76-1.46) 10/31/17 07:09 TSH 3rd Generation 0.734 uIU/ML (0.358-3.740) 10/19/17 06:18 Random Cortisol 26.9 MCG/DL 09/23/17 12:52 Urine Color YELLOW (YELLW/STRAW) 10/01/17 18:00 Urine Turbidity HAZY (CLEAR) H 10/01/17 18:00 Urine pH 8.5 (5.0-8.5) 10/01/17 18:00 Ur Specific [place] 1.025 (1.002-1.035) 10/01/17 18:00 Urine Protein TRACE mg/dL (NEG-TRACE) 10/01/17 18:00 Urine Glucose (UA) NEG mg/dL (NEG) 10/01/17 18:00 Urine Ketones NEG mg/dL (NEG) 10/01/17 18:00 Urine Occult Blood NEG (NEG) 10/01/17 18:00 Urine Nitrite NEG (NEG) 10/01/17 18:00 Urine Bilirubin NEG (NEG) 10/01/17 18:00 Urine Urobilinogen LESS THAN 2.0 MG/DL (LESS THAN 2.0) 10/01/17 18:00 Ur Leukocyte Esterase NEG (NEG) 10/01/17 18:00 Urine RBC 3 /hpf (0-3) 10/01/17 18:00 Urine WBC 8 /hpf (0-5) H 10/01/17 18:00 Ur Squamous Epith Cells <1 /hpf (0-5) 10/01/17 18:00 Urine Bacteria RARE /hpf (NONE) H 10/01/17 18:00 Hyaline Casts 2 /lpf (RARE) 10/01/17 18:00 Urine Mucus FEW /lpf (OCC) H 10/01/17 18:00 Micro UA Comment CATH-CULTURE IND 10/01/17 18:00 Urine Osmolality 834 MOSM/KG (300-1300) 09/23/17 14:45 Ur Random Sodium 76 MEQ/L 09/23/17 14:45 CSF Volume (1) 7.0 mL 11/06/17 17:50 CSF Supernat Color (1) Hemolyzed (Clear) A 11/06/17 17:50 CSF Gross Blood (1) 4+ (0) A 11/06/17 17:50 CSF WBC (1) 202 /mm3 (0-10) H 11/06/17 17:50 CSF RBC (1) 28717 /mm3 (None) H 11/06/17 17:50 CSF Neutrophils % 99 % 11/06/17 17:50 CSF Neutrophils % 10/20/17 12:04 CSF Lymphocytes % 12 % 10/30/17 Unknown CSF Lymphocytes 0 % 10/20/17 12:04 CSF Monocytes % 1 % 11/06/17 17:50 CSF Monocytes 18 % 10/17/17 09:19 CSF Histiocytes 3 % 10/30/17 Unknown CSF Comment 10/30/17 Unknown CSF Diff Comment 10/17/17 09:19 CSF Chloride 139 meq/L (119-127) H 10/27/17 19:00 CSF Glucose 76 mg/dL (40-80) 10/30/17 Unknown CSF Total Protein 65.6 mg/dL (15.0-45.0) H 10/30/17 Unknown Vancomycin Trough 9.9 MCG/ML (5.0-10.0) 10/02/17 10:30 Hep-Induced Plt Ab Eliane Negative (Negative) 10/25/17 18:34 HIPA Patient OD 0.049 O.D. (0.000-0.300) 10/25/17 18:34 Blood Type O Positive 11/04/17 07:52 Blood Type Confirm O Positive 10/26/17 12:42 Antibody Screen Negative 11/04/17 07:52 MTS Gel Crossmatch See Detail 11/04/17 07:52 Bld Prod Order Comment 11/07/17 10:[address] 10/26/17 00:00 CONCLUSION: Slight interval increase in size of hemorrhage in the left paramedian posterior fossa. Liver Ultrasound 10/27/17 00:00 CONCLUSION: 1. Simple right renal cyst. 2. Otherwise normal examination of the abdomen. Chest X-Ray 11/08/17 00:00 CONCLUSION: 1. Persistent left basilar opacification, likely a combination of pleural fluid and airspace disease. 2. Subtle somewhat nodular opacity in the central right lower lung. This may represent an infectious process, though follow-up is recommended to ensure resolution. Labs on day of discharge: Preliminary micro results at discharge 10/30/17 Unknown Fungal Culture - Preliminary Cerebral Spinal Fluid - Shunt Fluid No growth in 1 week 10/27/17 20:38 Fungal Culture - Preliminary Cerebral Spinal Fluid - Lumbar Puncture Lisa albicans 10/25/17 Unknown Fungal Culture - Preliminary Cerebral Spinal Fluid - Shunt Fluid Lisa albicans - Impressions ITS Impressions Head CT 10/26/17 00:00 CONCLUSION: Slight interval increase in size of hemorrhage in the left paramedian posterior fossa. Liver Ultrasound 10/27/17 00:00 CONCLUSION: 1. Simple right renal cyst. 2. Otherwise normal examination of the abdomen. Chest X-Ray 11/08/17 00:00 CONCLUSION: 1. Persistent left basilar opacification, likely a combination of pleural fluid and airspace disease. 2. Subtle somewhat nodular opacity in the central right lower lung. This may represent an infectious process, though follow-up is recommended to ensure resolution. Discharge Plan - Discharge Disposition Patient Disposition: 20 - Discharge Details Date/Time: 11/10/17 09:04 - Physicians Team Primary Care Provider: [facility] Attending Provider: Chelsi Damian Other Providers: Mar Gibbons MD ; Blaine Cisse MD ; Omar Vargas MD ; Yomi Horvath MD ; Tr Brito MD ; Milton Chou MD ; Dmitry Luna MD ; Maritza Chen MD ; Ariel Moore MD ; Ann Kaufman MD - Rxs /Orders / Referrals /Forms Prescriptions: Discontinued apixaban [Eliquis] 5 mg Tablet 5 mg PO BID enalapril maleate 2.5 mg Tablet 2.5 mg PO DAILY guaifenesin 100 mg/5 mL Liquid 200 mg PO Q4H PRN (Reason: Cough) metoprolol tartrate [Lopressor] 50 mg Tablet 50 mg PO Q12H simvastatin 20 mg Tablet 20 mg PO QPM Referrals: [facility] [Primary Care Provider] - See Instructions
== END 2017-11-10 09:04 | disposition expired ==
LOC: N03 16:02 → N05 11-09 10:15
PROVIDERS: ADMIT Hospitalist; ATTEND Hospitalist